=== PATIENT | male | born 1955 | race Caucasian/White ===

== ENCOUNTER 2021-12-14 10:23 | Inpatient (IN) | payer MEDICARE, OTHER, SELFPAY ==
[2021-12-14] VITALS (32 sets, daily range): BP systolic 103–195; BP diastolic 72–122; PULSE 91–135; RESP 12–26; TEMP 36.6–36.7; O2SAT 97–100
--- NOTE | ~2021-12-14 | XR_ITS ---
EXAMINATION: XR thoracic spine 3V EXAM DATE: 12/14/2021 12:38 INDICATION: thoracic back pain after fall 1 week ago. TECHNIQUE: Frontal and lateral projections of the thoracic spine as well as lateral swimmers projecti on of the upper thoracic spine for interpretation. There is no prior study for comparison. FINDINGS: The vertebral bodies are aligned in the AP dimension. There is mild mid thoracic disc disea se. The vertebral body and disc heights are otherwise well maintained. There are no acute fractures i dentified. Paraspinal soft tissue is unremarkable. IMPRESSION: Mild thoracic spondylosis. Reviewed, dictated and finalized at location A. ATCHER SERVICE CHIEF IMPRESSION: Mild thoracic spondylosis.
--- NOTE | ~2021-12-14 | XR_ITS ---
XR lumbar spine 2-3V 12/14/2021 12:38 Indication: Back pain after recent fall Procedure: 3 views lumbar spine Comparison: No prior studies for comparison. Findings: Vertebral body heights are maintained. Mild disc narrowing at L4-5 and L5-S1. No acute frac ture or traumatic malalignment. Pedicles intact. Sacral foramen are symmetric. Impression: 1: No acute abnormality of the lumbar spine. 2: Mild lumbar spondylosis. Reviewed, dictated and finalized at location B. STANT STORE DIRECTOR Impression: 1: No acute abnormality of the lumbar spine. 2: Mild lumbar spondylosis.
--- NOTE | ~2021-12-14 | XR_ITS ---
EXAMINATION: XR chest 1V portable 12/14/2021 12:26 INDICATION: Weakness. Dyspnea. PROCEDURE: AP portable chest COMPARISON: No prior studies for comparison. FINDINGS: The lungs are clear. The cardiomediastinal silhouette is within normal limits. There are no pleural effusions. There is no pneumothorax suspected. IMPRESSION: 1: NO ACUTE CARDIOPULMONARY DISEASE. Reviewed, dictated and finalized at location B. OL CAFETERIA COOK HEAD
--- NOTE | ~2021-12-14 | CT_ITS ---
EXAMINATION: CT brain wo con DATE: 12/14/2021 17:51 INDICATION: Multiple falls due to weakness and lightheadedness. Head injury. TECHNIQUE: Computed tomography (CT) of the head was performed without intravenous contrast. The mA wa s adjusted according to patient size. Iterative reconstruction technique was employed. Exam dose: 60 5.33 mGy-cm total exam DLP. COMPARISON: None FINDINGS: There is central and cortical cerebral and cerebellar atrophy. There is nonspecific diminished attenuation cerebral white matter, likely due to chronic small vessel ischemic changes. Prominent bilateral carotid siphon and supraclinoid internal carotid artery calcif ications. Chronic left basal ganglia and periventricular lacunar infarcts. No intracranial mass lesion or hemorrhage or recent cerebrovascular accident is evident. There is no midline shift or mass effect. No subdural or epidural hematoma. No fracture or bone destruction of the cranial vault. The mastoid air cells and included paranasal si nuses are normally developed and aerated. IMPRESSION: Cerebral atherosclerosis and chronic small vessel ischemic changes of cerebral white mat ter Chronic lacunar infarcts of left basal ganglia and periventricular area No acute intracranial finding or skull fracture Reviewed, dictated and finalized at Location A. Reviewed, dictated and finalized at location A. L PADDER BLINDSTITCH IMPRESSION: Cerebral atherosclerosis and chronic small vessel ischemic changes of cerebral white matter Chronic lacunar infarcts of left basal ganglia and periventricular area No acute intracranial finding or skull fracture
--- NOTE | ~2021-12-14 | US_ITS ---
US renal BI 12/15/2021 10:26 Procedure: Realtime transabdominal ultrasound of the kidneys and bladder. Indication: Acute renal insufficiency Comparison: No prior studies for comparison. Findings: Renal echotexture is normal bilaterally without hydronephrosis, contour deforming mass or r enal calculus. The right kidney measures 10.6 cm and left kidney measures 9.6 cm. Bladder within nor mal limits. Bilateral ureteral jets are demonstrated. Impression: 1: Unremarkable renal ultrasound. No stones, masses or hydronephrosis. Reviewed, dictated and finalized at location B. OWS APPLICATION PACKAGER Impression: 1: Unremarkable renal ultrasound. No stones, masses or hydronephrosis.
--- NOTE | 2021-12-14 11:59 | ECG_ITS ---
Measurements Intervals [place] Rate: 94 P: 34 [place]: 181 QRS: -67 QRSD: 110 T: 120 QT: 379 QTc: 476 Interpretive Statements SINUS RHYTHM ATRIAL PREMATURE COMPLEX LEFT ANTERIOR FASCICULAR BLOCK LEFT VENTRICULAR HYPERTROPHY AND ST-T CHANGE ST-T WAVE ABNORMALITY IN HIGH LATERAL LEADS- CONSIDER ISCHEMIA BASELINE ARTIFACT- I, AVL ABNORMAL ECG Electronically Signed On 12-14-2021 12:50:18 DOSIER OPERATOR by Gokul Ruff D.O.
--- NOTE | 2021-12-14 12:17 | ED.GENADULT ---
HPI - General Adult General Chief complaint: Weakness Stated complaint: syncope Time Seen by Provider: 12/14/21 11:54 Source: patient and RN notes reviewed Mode of arrival: ambulatory Limitations: no limitations History of Present Illness HPI narrative: 66-year-old male with history of alcohol abuse presents to the emergency department complaining of increased generalized weakness and lower back pain after a ground-level fall 1 week ago. Patient states since October he has had decreased p.o. intake and has been drinking heavily. In October his fianc?e . Patient states he goes through approximately 1/5 of [employer] every 3 days. patient states 1 week ago he had a fall injuring his back. Patient states he has been taking ibuprofen for pain control. Patient did go to his daughter's wedding on Tuesday and states he was able to dance a little. Patient states over the last few days he has had increased cough. Upon arrival to emergency department patient is alert oriented and appears to be in no distress. Related Data Allergies Allergy/AdvReac Type Severity Reaction Status Date / Time No Known Allergies Allergy Mild Verified 12/24/10 20:41 Review of Systems Review of Systems: CONSTITUTIONAL: Denies fever, chills, or sweats. Does report increased generalized weakness EYES: Denies visual changes, redness, or discharge. ENT: Denies rhinorrhea, congestion, sore throat, or otalgia. CARDIOVASCULAR: Denies chest pain, palpitations, or edema. RESPIRATORY: Denies cough or dyspnea. GASTROINTESTINAL: Denies abdominal pain, nausea, vomiting, or diarrhea. GENITOURINARY: Denies dysuria or hematuria. SKIN: Denies rash or itching. MUSCULOSKELETAL: Thoracic and lumbar back pain NEUROLOGIC: Denies headache, numbness, or weakness. Exam Narrative: APPEARANCE: Well appearing, no pain, no distress, well-nourished. HEAD: normocephalic, atraumatic. EYES: PERRLA/EOMI, conjunctivae clear. NOSE: Normal no drainage RESPIRATORY: Airway patent, respirations nonlabored. Clear to auscultation bilaterally, no rales, rhonchi, wheezing. CARDIOVASCULAR: Regular rate and rhythm without murmurs rubs or gallops. ABDOMINAL: Soft, nontender, nondistended, normal bowel sounds MUSCULOSKELETAL: Moves all extremities. Strength/ROM intact, No edema, No calf tenderness. NEURO: Alert. Cranial nerves II through XII intact. Good gait. Good coordination SKIN: Warm, dry. Normal Color PSYCHIATRIC: Normal affect/mood. Denies homicidal or suicidal ideation Course Course Emergency Course: X-rays of thoracic and lumbar spine are read as negative. No acute fractures or dislocations. Patient's labs are within normal limits. Patient did have some mild hyponatremia that was treated with 1 L normal saline. Patient was updated with his imaging and his labs. Patient was able to ambulate in the emergency department without issue. To discharge patient states he felt increasingly weaker. Head CT showed no acute intracranial abnormality. Patients blood glucose was stable. I discussed the findings with the patient and the patient's daughter. I feel the majority of the patient's symptoms are due to deconditioning from his poor diet and increased alcohol consumption. I discussed the case with the hospitalist and patient was accepted for observation. Patient was stable at time of admission. Vital Signs Vital signs: Vital Signs Temperature 97.8 F 12/14/21 10:28 Pulse Rate 104 H 12/14/21 10:28 Respiratory Rate 16 12/14/21 10:28 Blood Pressure 103/72 12/14/21 10:28 Pulse Oximetry 98 12/14/21 10:28 Temperature 98.1 F 12/14/21 11:56 Pulse Rate 106 H 12/14/21 18:01 Respiratory Rate 18 12/14/21 18:01 Blood Pressure 179/91 H 12/14/21 18:46 Pulse Oximetry 99 12/14/21 18:38 Medical Decision Making Vital Signs Vital Signs: Vital Signs Temperature 97.8 F 12/14/21 10:28 Pulse Rate 104 H 12/14/21 10:28 Respiratory Rate 16 12/14/21 10:28 B
[2021-12-14 12:28] LABS: Basophils Percent Auto 0.3 % (0.2-1.2); Eosinophils Percent Auto 0.1 % (0-4.4); Hematocrit 37.7 % (42.0-52.0); Hemoglobin 13.4 g/dL (14.0-18.0); Immature Granulocyte Absolute 0.07 K/mm3 (0.00-0.031); Immature Granulocyte Percent A 0.8 % (0-0.5); Lymphocytes Absolute Auto 0.61 K/mm3 (0.9-3.2); Lymphocytes Percent Auto 6.7 % (18.3-44.2); Mean Corpuscular HGB Conc 35.5 g/dl (32-36); Mean Corpuscular Hemoglobin 33.4 pg (26-34); Mean Platelet Volume 9.2 fl (7.4-10.4); Monocytes Absolute Auto 0.9 K/mm3 (0.1-0.6); Monocytes Percent Auto 9.4 % (2.6-8.5); Neutrophils Absolute Auto 7.5 K/mm3 (1.3-6.7); Neutrophils Percent Auto 82.7 % (45.5-73.1); Platelet Count Result 227 k/mm3 (150-375); Red Blood Count 4.01 M/mm3 (4.6-6.20); Red Cell Distribution Width 13.1 % (11.5-14.5); White Blood Count 9.1 K/mm3 (4.5-10.0)
[2021-12-14 12:35] LABS: Alanine Aminotransferase 35 U/L (4-50); Albumin Level 4.3 g/dL (3.5-5.1); Alkaline Phosphatase 96 U/L (38-126); Anion Gap 15 mmol/L (8-16); Aspartate Amino Transferase 62 U/L (17-59); Bilirubin,Total 1.1 mg/dL (0.2-1.3); Blood Urea Nitrogen 45 mg/dL (9-20); Calcium 9.5 mg/dL (8.4-10.2); Carbon Dioxide 18 mmol/L (22-30); Chloride 96 mmol/L (98-107); Estimated CRCL calculation 39 ml/min; Estimated Glomerular Filt Rate 40; Glucose 148 mg/dL (65-110); Lactic Acid Reflex 1.9 mmol/L (0.7-2.1); Potassium 3.7 mmol/L (3.4-5.0); Sodium 129 mmol/L (137-145)
[2021-12-14] MEDS: SODIUM CHLORIDE 0.9% IV 1,000 ML 999 ML IV CONT (12:49)
[2021-12-14 14:01] LABS: Add Urine Microscopic? YES; Appearance Urine Clear (Clear); Bilirubin Urine Negative (Negative); Blood Urine 2+ (Negative); Color Urine Yellow (Yellow); Glucose Urine UA 1+ mg/dL (Negative); Ketones Urine Trace mg/dL (Negative); Leukocyte Esterase Ur Negative LEU/UL (Negative); Mucus Urine Rare /lpf; Nitrate Urine Negative (Negative); Protein Urine 1+ mg/dL (Negative); RBC Urine 0-2 /hpf (0-2); Specific Grav Ur 1.016 (1.001-1.035); Squamous Epithelial Cell Urine Occasional /hpf (Few); WBC Urine 0-3 /hpf
--- NOTE | 2021-12-14 16:14 | PC.NURSE ---
patient family called wondering why he want getting admired because he is depressed. Daughter stated that he does not eat and drink at home and sits in his own feces all day if they do not check on him.
--- NOTE | 2021-12-14 16:20 | PC.NURSE ---
Patient was found on knees in ED room 3. Patient states he lowered self to floor after trying to urinate. Patient is alert and oriented and states I got cocky and wanted out of bed to urinate. Patient had call light and urinal within reach and was educated allocation analyst light use and was told not to ambulate without assistance prior to fall. Patient denies any injury and lowered himself to floor. EDP Terrance in room and evaluated patient. No new orders per EDP Terrance. ED charge nurse Deepak and mix house operator Suni was made aware and patient was assisted back into bed without difficulty.
[2021-12-14 17:42] LABS: Glucose Point of Care 107 mg/dl (65-105)
--- NOTE | 2021-12-14 17:44 | PC.NURSE ---
Per EDP Terrance patient needed to be ambulated post fall. Patient unable to ambulate because of weakness and patient almost fell down again. Patient placed back into bed.
--- NOTE | 2021-12-14 17:58 | PC.NURSE ---
Patient urinated during CT scan then again when he got back. He stated it makes him feel warm. Then he stated he cannot control himself because he is to weak.
[2021-12-14 18:40] LABS: SARS-CoV-2 RNA PCR Negative
--- NOTE | 2021-12-14 19:13 | PC.NURSE ---
patient refused to get cleaned up after urinating in his pants.
[2021-12-14] MEDS: THIAMINE HCL 200 MG/2 ML VIAL 100 MG IV PUSH (19:32)
--- NOTE | 2021-12-14 19:37 | PM.IMHP ---
H&P: HPI History of Present Illness Date/Time: 12/14/21 19:37 Chief Complaint: WEAKNESS Narrative: This is a 66-year-old male with past medical history significant for type 2 diabetes mellitus controlled with oral agents, hypertension. Patient presented to emergency room with complaints of back pain recurrent falls increased alcohol intake for the last month or so debilitation ,weakness, alcohol intoxication and depression after his fiancee in October, has had a period of bereavement and has become increasingly weak has been drinking alcohol. Patient had a fall and noticed that he has become progressively weaker and has back pain after falling to the ground however denies any loss of consciousness, no gait disturbance, no urinary incontinence or fecal incontinence, no saddle anesthesia, no shooting back pain, in emergency room patient was noted to be very weak and just getting up and out of bed was extremely difficult. Preliminary workup was essentially nonrevealing. Patient is been admitted for further evaluation, management and treatment Review of Systems Review of Systems: Better mend, alcohol intoxication, recurrent falls, worsening weakness , poor oral intake Constitutional: Constitutional: Denies chills, Denies fever(s), Reports frequent falls, Reports lethargy, Denies night sweats, Reports poor appetite, Reports weakness and Reports weight loss Eyes: Eyes: Denies change in vision ENT: Denies dysphagia, Denies vertigo, Denies dizziness, Denies nasal discharge, Denies nasal obstruction and Denies odynophagia Cardiovascular: Cardiovascular: Denies syncope, Denies claudication, Denies radiating jaw, neck or arm pain, Denies palpitations, Denies dyspnea on exertion and Denies orthopnea Respiratory: Respiratory: Denies cough, Denies excessive phlegm production, Denies dyspnea and Denies wheezing Gastrointestinal: Gastrointestinal: Denies abdominal pain, Denies dyspepsia, Denies heartburn, Denies diarrhea, Denies nausea and Denies vomiting Genitourinary: Genitourinary: Denies dysuria Musculoskeletal: Musculoskeletal: Reports muscle weakness Integumentary/Breasts: Skin/Breast: Denies rash Neurologic: Denies focal weakness and Denies Sensory deficit (Neuro) Psychiatric: Psychiatric: Reports anhedonia Comments: Bearevement Endocrine: Endocrine: Denies cold intolerance, Denies fatigue, Denies flushing, Denies heat intolerance, Denies polyphagia, Denies polydipsia, Denies polyuria and Denies palpitations Hematologic/Lymphatic: Hematologic/Lymphatic: Reports no additional hematologic/lymphatic complaints and Reports as per HPI Allergic/Immunologic: Allergic/Immunologic: Reports no additional allergic/immunologic complaints and Reports as per HPI [facility] Social History Social History Smoking packs per day: 1 Smoking cigarettes per day: 20.0 Years smoked: 49 Smoking pack-years: 49.00 Smoking status: Current every day smoker Tobacco type: cigarettes Second hand tobacco smoke exposure: Yes Alcohol intake: current Drinks per week: 20 Substance use: never Substance use type: does not use Spiritual care concerns: No Meds Home Medications and Allergies Home Medications Medication Instructions Recorded Confirmed Type ibuprofen 200 mg PO Q6H PRN 12/15/21 12/15/21 History irbesartan 150 mg PO DAILY 12/15/21 12/15/21 History metformin 500 mg PO BID 12/15/21 12/15/21 History Allergies Allergy/AdvReac Type Severity Reaction Status Date / Time No Known Allergies Allergy Mild Verified 12/15/21 02:43 Vital Signs Vital Signs - 24 hr 12/14/21 10:28 12/14/21 11:56 12/14/21 12:13 Temperature 97.8 F 98.1 F Pulse Rate 104 H 96 103 H Respiratory Rate 16 19 12 Blood Pressure 103/72 142/96 H Pulse Oximetry 98 100 12/14/21 12:15 12/14/21 12:43 12/14/21 12:45 Temperature Pulse Rate 96 96 91 Respiratory Rate 19 20 21 H Blood Pressure Pulse Oximetry 98 98 12/14/21 13:00 0
[2021-12-15] VITALS (7 sets, daily range): BP systolic 136–162; BP diastolic 73–96; PULSE 73–102; RESP 14–16; TEMP 36.4–36.6; O2SAT 98–100; BMI 23.1
--- NOTE | 2021-12-15 01:50 | ADMGEN ---
This patient, Yvan Chau, was admitted to Medical Room 243-01. Patient/family oriented to hospital policies and general routines including ID bracelet, bed and alarms, visiting hours, pain management, procedures, bathroom and other care routines, personal items, smoking policy, room service/diet, and visiting hours. Information on how to activate the Rapid Response Team has been discussed. Patient/Family are encouraged to report perceived risks to care and to ask questions if they do not understand what they are told or what they should do.
[2021-12-15] MEDS: THIAMINE HCL INJ 100 MG, FOLIC ACID INJ 1 MG, MULTIVITAMINS-12 INJ VIAL 1 5 ML, MULTIVI... IV CONT (04:03)
--- NOTE | 2021-12-15 11:15 | PM.IMPN ---
Progress Note: A&P Assessment and Plan (1) Recurrent falls while walking: Code(s): R29.6 - Repeated falls Status: Acute Assessment and Plan: PT/ OT (2) Alcohol intake above recommended sensible limits: Code(s): Z72.89 - Other problems related to lifestyle Status: Acute Assessment and Plan: Pt is on thiamine and oral MV on regular food (3) Bereavement due to life event: Code(s): Z63.4 - Disappearance and of family member Status: Acute Assessment and Plan: Recent loss of his depressed effect (4) Back pain: Qualifiers: Back pain laterality: midline Back pain location: low back pain Chronicity: acute Sciatica presence: without sciatica Qualified Code(s): M54.50 - Low back pain, unspecified Code(s): M54.9 - Dorsalgia, unspecified Status: Acute Assessment and Plan: continue pT/ OT DC fidel (5) General weakness: Code(s): R53.1 - Weakness Status: Acute Assessment and Plan: continue PT/ OT DC fidel (6) Physical deconditioning: Code(s): R53.81 - Other malaise Status: Acute Assessment and Plan: Continue PT/ OT DC fidel (7) LEANDRO (acute kidney injury): Code(s): N17.9 - Acute kidney failure, unspecified Status: Acute Assessment and Plan: creat is 1.7 sodium levels are 129 continue hydration monitor bmp Subjective Date/time seen: 12/15/21 11:15 Interval history: 66-year-old male with past medical history significant for type 2 diabetes mellitus controlled with oral agents, hypertension. Patient had recent bereavement and was drinking heavily. Pt feeling better started PT/ OT. still bit shakey in his legs, plan to go home to his daughters house Review of Systems Review of Systems: All systems reviewed & are unremarkable except as noted in HPI and below Exam Const: General: other (shakey tearful ); No in distress Orientation/consciousness: oriented to person HENMT: Head: normal to inspection Resp: Effort & Inspection: no respiratory distress Auscultation: no rhonchi and no wheezes Cardio: Rate: regular rate Rhythm: regular rhythm GI: Inspection: normal to inspection GI Palp: No abdominal tenderness, No Guarding due to palpation present (GI) and No Hepatomegaly present Auscultation: normal bowel sounds Neuro: General: oriented to person Objective Data Vital Signs Vital Signs: Vital Signs - 24 hr 12/14/21 11:56 12/14/21 12:13 12/14/21 12:15 Temperature 36.7 C Pulse Rate 96 103 H 96 Respiratory Rate 19 12 19 Blood Pressure 142/96 H Pulse Oximetry 100 12/14/21 12:43 12/14/21 12:45 12/14/21 13:00 Temperature Pulse Rate 96 91 95 Respiratory Rate 20 21 H 20 Blood Pressure Pulse Oximetry 98 98 99 12/14/21 13:20 12/14/21 13:30 12/14/21 13:46 Temperature Pulse Rate 92 97 93 Respiratory Rate 24 H 14 20 Blood Pressure Pulse Oximetry 99 100 100 12/14/21 14:00 12/14/21 14:15 12/14/21 14:17 Temperature Pulse Rate 99 108 H 96 Respiratory Rate 21 H 20 22 H Blood Pressure 145/108 H Pulse Oximetry 100 99 99 12/14/21 14:33 12/14/21 14:49 12/14/21 15:08 Temperature Pulse Rate 104 H 102 H 100 Respiratory Rate 13 26 H 22 H Blood Pressure Pulse Oximetry 99 97 100 12/14/21 15:22 12/14/21 15:30 12/14/21 15:48 Temperature Pulse Rate 103 H Respiratory Rate 21 H Blood Pressure Pulse Oximetry 97 100 99 12/14/21 16:12 12/14/21 16:30 12/14/21 16:45 Temperature Pulse Rate 135 H 108 H 106 H Respiratory Rate 25 H 20 17 Blood Pressure 195/122 H Pulse Oximetry 99 12/14/21 16:47 12/14/21 17:05 12/14/21 17:15 Temperature Pulse Rate 102 H 104 H Respiratory Rate 16 Blood Pressure Pulse Oximetry 99 98 100 12/14/21 17:55 12/14/21 17:56 12/14/21 18:00 Temperature Pulse Rate 100 101 H 102 H Respiratory Rate 17 18 18 Blood Pressure 173/110 H Pulse Oximetry 99 1
[2021-12-16 05:04] VITALS: BP 144/74; PULSE 82; RESP 14; TEMP 36.7; O2SAT 99
[2021-12-16 08:51] LABS: Anion Gap 12 mmol/L (8-16); Blood Urea Nitrogen 43 mg/dL (9-20); Calcium 8.8 mg/dL (8.4-10.2); Carbon Dioxide 24 mmol/L (22-30); Chloride 94 mmol/L (98-107); Estimated CRCL calculation 49 ml/min; Estimated Glomerular Filt Rate 55; Glucose 129 mg/dL (65-110); Potassium 3.1 mmol/L (3.4-5.0); Sodium 130 mmol/L (137-145)
[2021-12-16] MEDS: MULTIVITAMINS THERAPEUTIC TAB (*BKC) 1 TABLET PO (09:04)
[2021-12-16] MEDS: POTASSIUM CHLORIDE 20 MEQ TABLET 40 MEQ PO (09:05)
[2021-12-16] MEDS: SODIUM CHLORIDE 0.9% IV 1,000 ML 999 ML IV CONT (09:05)
--- NOTE | 2021-12-16 12:46 | WPDCDIQUERY2 ---
CDI Query Clarification Request - Pt has increased alcohol intake -weakness- likely secondary to poor po intake increased alcohol intake -falls likely secondary to alcohol intoxication has been documented Please clarify if there is a corresponding diagnosis for above findings.
[2021-12-16 12:59] LABS: Influenza Control Positive
[2021-12-16 13:50] LABS: Anion Gap 9 mmol/L (8-16); Blood Urea Nitrogen 43 mg/dL (9-20); Calcium 7.9 mg/dL (8.4-10.2); Carbon Dioxide 23 mmol/L (22-30); Chloride 97 mmol/L (98-107); Estimated CRCL calculation 53 ml/min; Estimated Glomerular Filt Rate 60; Glucose 125 mg/dL (65-110); Potassium 3.6 mmol/L (3.4-5.0); Sodium 129 mmol/L (137-145)
[2021-12-16 14:00] VITALS: BP 149/96; PULSE 92; RESP 16; TEMP 36.7; O2SAT 100
--- NOTE | 2021-12-16 15:58 | PM.IMPN ---
Progress Note: A&P Assessment and Plan (1) Recurrent falls while walking: Code(s): R29.6 - Repeated falls Status: Acute Assessment and Plan: PT/ OT (2) Alcohol intake above recommended sensible limits: Code(s): Z72.89 - Other problems related to lifestyle Status: Acute Assessment and Plan: Pt is on thiamine and oral MV on regular food (3) Bereavement due to life event: Code(s): Z63.4 - Disappearance and of family member Status: Acute Assessment and Plan: Recent loss of his depressed effect (4) Back pain: Qualifiers: Back pain laterality: midline Back pain location: low back pain Chronicity: acute Sciatica presence: without sciatica Qualified Code(s): M54.50 - Low back pain, unspecified Code(s): M54.9 - Dorsalgia, unspecified Status: Acute Assessment and Plan: continue pT/ OT (5) General weakness: Code(s): R53.1 - Weakness Status: Acute Assessment and Plan: continue PT/ OT (6) Physical deconditioning: Code(s): R53.81 - Other malaise Status: Acute Assessment and Plan: Continue PT/ OT (7) LEANDRO (acute kidney injury): Code(s): N17.9 - Acute kidney failure, unspecified Status: Acute Assessment and Plan: creat is 1.7 sodium levels are 129 continue hydration monitor bmp (8) Cough: Code(s): R05.9 - Cough, unspecified Status: Acute Assessment and Plan: -pt reports increased cough x 2 days -initial covid test negative but now symptomatic, will re test -daughter and son in law who we was just with and was supposed to go home to live with, both tested positive for covid today -pending covid test patient can possibly go home with a different family member vs SNF Subjective Date/time seen: 12/16/21 15:58 Interval history: 66-year-old male with past medical history significant for type 2 diabetes mellitus controlled with oral agents, hypertension. Patient had recent bereavement and was drinking heavily. Pt feeling better started PT/ OT. Pt was supposed to go home with his daughter today but found out that she and her tested positive for covid. Pt also notes that his cough has increased over the past 2 days and he was just with his daughter and son in law. Pt was negative on arrival but symptoms have developed since that time and he is requesting to be re tested. Review of Systems Review of Systems: General: Denies fevers Eyes: Denies vision changes ENT: Denies nasal congestion or sore throat Respiratory: + cough, denies shortness of breath Cardiovascular: Denies chest pain or lower extremity edema Gastrointestinal: Denies abdominal pain, vomiting, or diarrhea Genitourinary: Denies dysuria Musculoskeletal: Denies back pain Neurological: Denies headache or motor weakness Integumentary: Denies rash Exam Narrative: General: No acute distress, non toxic appearing Eyes: PERRL, no scleral icterus HEENT: NCAT, external ears normal, MMM Respiratory: No respiratory distress, Lungs CTA bilaterally, no wheezing Cardiovascular: RRR, no murmur Abdominal: Soft, nontender, non distended, no rebound or guarding Musculoskeletal: Moves all 4 extremities, no edema Neurological: A/Ox3, speech normal, no facial asymmetry Skin: Warm, dry Psychiatric: Normal affect, depressed mood Objective Data Vital Signs Vital Signs: Vital Signs - 24 hr 12/15/21 19:56 12/15/21 20:00 12/16/21 05:04 Temperature 97.6 F 98.1 F Pulse Rate 91 91 82 Respiratory Rate 16 16 14 Blood Pressure 147/85 H 144/74 H Pulse Oximetry 100 100 99 12/16/21 14:00 Temperature 98.0 F Pulse Rate 92 Respiratory Rate 16 Blood Pressure 149/96 H Pulse Oximetry 100 Intake/Output Intake/Output: Intake & Output 12/13/21 12/14/21 12/15/21 12/16/21 23:59 23:59 23:59 23:59 Intake Total 1000 1230 2020 Output Total 100 Balance 1000 1130
[2021-12-16 19:37] LABS: SARS-CoV-2 RNA PCR Negative
[2021-12-16 20:00] VITALS: PULSE 77; RESP 16; O2SAT 99
[2021-12-16 20:08] VITALS: BP 161/90; PULSE 77; RESP 16; TEMP 36.4; O2SAT 99
[2021-12-17 06:00] VITALS: BP 159/86; PULSE 74; RESP 16; TEMP 36.4; O2SAT 100
[2021-12-17 06:51] LABS: Hemoglobin 11.4 g/dL (14.0-18.0); Mean Corpuscular HGB Conc 35.6 g/dl (32-36); Mean Corpuscular Hemoglobin 33.4 pg (26-34); Mean Corpuscular Volume 93.8 fl (80-100); Mean Platelet Volume 9.2 fl (7.4-10.4); Platelet Count Result 276 k/mm3 (150-375); Red Blood Count 3.41 M/mm3 (4.6-6.20); Red Cell Distribution Width 13.1 % (11.5-14.5); White Blood Count 9.3 K/mm3 (4.5-10.0)
[2021-12-17 07:10] LABS: Anion Gap 9 mmol/L (8-16); Blood Urea Nitrogen 27 mg/dL (9-20); Calcium 8.3 mg/dL (8.4-10.2); Carbon Dioxide 25 mmol/L (22-30); Chloride 97 mmol/L (98-107); Estimated CRCL calculation 63 ml/min; Estimated Glomerular Filt Rate > 60; Glucose 143 mg/dL (65-110); Potassium 3.3 mmol/L (3.4-5.0); Sodium 131 mmol/L (137-145)
[2021-12-17] MEDS: MULTIVITAMINS THERAPEUTIC TAB (*BKC) 1 TABLET PO (09:04)
--- NOTE | 2021-12-17 13:23 | PM.IMPN ---
Progress Note: A&P Assessment and Plan (1) Recurrent falls while walking: Code(s): R29.6 - Repeated falls Status: Acute Assessment and Plan: PT/ OT (2) Alcohol intake above recommended sensible limits: Code(s): Z72.89 - Other problems related to lifestyle Status: Acute Assessment and Plan: Pt is on oral MV and regular food (3) Bereavement due to life event: Code(s): Z63.4 - Disappearance and of family member Status: Acute Assessment and Plan: Recent loss of his depressed effect (4) Back pain: Qualifiers: Back pain laterality: midline Back pain location: low back pain Chronicity: acute Sciatica presence: without sciatica Qualified Code(s): M54.50 - Low back pain, unspecified Code(s): M54.9 - Dorsalgia, unspecified Status: Acute Assessment and Plan: continue pT/ OT DC to SNF (5) General weakness: Code(s): R53.1 - Weakness Status: Acute Assessment and Plan: continue PT/ OT DC to SNF (6) Physical deconditioning: Code(s): R53.81 - Other malaise Status: Acute Assessment and Plan: Continue PT/ OT to SNF (7) LEANDRO (acute kidney injury): Code(s): N17.9 - Acute kidney failure, unspecified Status: Acute Assessment and Plan: creat is 1 sodium levels are 131 LEANDRO corrected with fluids Subjective Date/time seen: 12/17/21 13:23 Interval history: 66-year-old male with past medical history significant for type 2 diabetes mellitus controlled with oral agents, hypertension. Patient had recent bereavement and was drinking heavily. Pt looks alot better. Pt cannot go back to his daughter house due to family having covid. Pt is negative for covid and is awaiting discharge to SNF placement. Review of Systems Review of Systems: All systems reviewed & are unremarkable except as noted in HPI and below Exam Const: General: cooperative, healthy appearing, well developed, alert and in distress Orientation/consciousness: oriented to person HENMT: Head: normal to inspection Resp: Effort & Inspection: no respiratory distress Auscultation: no rhonchi and no wheezes Cardio: Rate: regular rate Rhythm: regular rhythm GI: Inspection: normal to inspection Auscultation: normal bowel sounds Neuro: General: oriented to person Objective Data Vital Signs Vital Signs: Vital Signs - 24 hr 12/16/21 14:00 12/16/21 20:00 12/16/21 20:08 Temperature 36.7 C 36.4 C Pulse Rate 92 77 77 Respiratory Rate 16 16 16 Blood Pressure 149/96 H 161/90 H Pulse Oximetry 100 99 99 12/17/21 06:00 Temperature 36.4 C Pulse Rate 74 Respiratory Rate 16 Blood Pressure 159/86 H Pulse Oximetry 100 Intake/Output Intake/Output: Intake & Output 12/14/21 12/15/21 12/16/21 12/17/21 23:59 23:59 23:59 23:59 Intake Total 1000 1230 2540 1000 Output Total 100 Balance 1000 1130 2540 1000 Meds/Results Medications: Active Medications Generic Name Dose Route Start Last Admin Trade Name Freq PRN Reason Stop Dose Admin Multivitamins Therapeutic 1 tablet 12/16/21 09:00 12/17/21 09:04 Multivitamins Therapeutic Tab (*Bkc) PO 1 tablet QAM BASSEM Administration Radiology Results: ITS Impressions Chest X-Ray 12/14/21 12:34 IMPRESSION: 1: NO ACUTE CARDIOPULMONARY DISEASE. Lumbar Spine X-Ray 12/14/21 12:42 Impression: 1: No acute abnormality of the lumbar spine. 2: Mild lumbar spondylosis. Thoracic Spine X-Ray 12/14/21 12:55 IMPRESSION: Mild thoracic spondylosis. Head CT 12/14/21 18:20 IMPRESSION: Cerebral atherosclerosis and chronic small vessel ischemic changes of cerebral white matter Chronic lacunar infarcts of left basal ganglia and periventricular area No acute intracranial finding or skull fracture Renal Ultrasound 12/15/21 10:30 Impression: 1: Unremarkable renal ultrasound. No stones, masses or hydronephr
[2021-12-17 14:00] VITALS: BP 159/87; PULSE 76; RESP 14; TEMP 36.6; O2SAT 100
--- NOTE | 2021-12-17 15:18 | PC.NURSE ---
On 12/17/21, the student, [Florencio Levine], provided care and completed [facility] documentation on this patient. I have reviewed the student's documentation and agree with the findings.
[2021-12-17 20:00] VITALS: PULSE 80; RESP 16; O2SAT 100
[2021-12-17 20:50] VITALS: BP 158/93; PULSE 80; RESP 16; TEMP 36.7; O2SAT 100
[2021-12-18 05:26] VITALS: BP 163/100; PULSE 81; RESP 14; TEMP 36.4; O2SAT 100
[2021-12-18] MEDS: MULTIVITAMINS THERAPEUTIC TAB (*BKC) 1 TABLET PO (08:56)
--- NOTE | 2021-12-18 10:53 | PCPTNOTE ---
Patient declined to do therapy at this time due to wanting to save his energy for returning home. Patient had just spoken with the MD who states he will be discharged today.
--- NOTE | 2021-12-18 13:05 | PM.DS ---
DS: Admitting Diagnosis Discharge Date 12/18/2021 Admitting Diagnosis WEAKNESS DS: Discharge Diagnosis Discharge Diagnosis (1) Recurrent falls while walking: Code(s): R29.6 - Repeated falls Status: Resolved Assessment and Plan: Pt did well with PT/OT in the hospital, can be discharged home. (2) Alcohol intake above recommended sensible limits: Code(s): Z72.89 - Other problems related to lifestyle Status: Resolved Assessment and Plan: Pt is on oral MV and regular food (3) Bereavement due to life event: Code(s): Z63.4 - Disappearance and of family member Status: Acute Assessment and Plan: Recent loss of his Depressed effect Advised to talk to friends and family when he gets home. Pt will be going home with Home health nurses, then will go to live with her daughter in a few days time. Cannot go earlier as his daughter is recovering from COVID. (4) Back pain: Qualifiers: Back pain laterality: midline Back pain location: low back pain Chronicity: acute Sciatica presence: without sciatica Qualified Code(s): M54.50 - Low back pain, unspecified Code(s): M54.9 - Dorsalgia, unspecified Status: Acute Assessment and Plan: Pt did well with PT/ OT in the hospita,l pt is stable for discharge home with Home health. (5) General weakness: Code(s): R53.1 - Weakness Status: Resolved Assessment and Plan: Pt did well with PT/ OT in the hospital, pt is stable for discharge home with Home health. (6) Physical deconditioning: Code(s): R53.81 - Other malaise Status: Resolved Assessment and Plan: Pt did well with PT/ OT in the hospital, pt is stable for discharge home with Home health. (7) LEANDRO (acute kidney injury): Code(s): N17.9 - Acute kidney failure, unspecified Status: Resolved Assessment and Plan: creat is 1 sodium levels are 131 LEANDRO corrected with fluids DS: Summary Hospital Course Hospital Course: 66-year-old male with past medical history significant for type 2 diabetes mellitus controlled with oral agents, hypertension. Patient had recent bereavement and was drinking heavily. Pt looks alot better. Pt cannot go back to his daughter house due to family having covid. Pt is negative for covid and will be going home with home health nurses for a few days and then will go to his daughter house. Time Spent with Patient Time attestation: Total time spent providing and/or coordinating discharge services:40 minutes on day of discharge Exam Const: General: cooperative, healthy appearing, well developed, alert and in distress Orientation/consciousness: oriented to person HENMT: Head: normal to inspection Resp: Effort & Inspection: no respiratory distress Auscultation: no rhonchi and no wheezes Cardio: Rate: regular rate Rhythm: regular rhythm GI: Inspection: normal to inspection Auscultation: normal bowel sounds Neuro: General: oriented to person Discharge Plan Discharge Attending physician on discharge: Suha Marroquin Discharging Clinician: Suha Marroquin Anticipated Discharge Date/Time: 12/18/21 13:04 Patient Disposition: Home Health Service Activity: as tolerated Diet: regular Discharge Instructions: Per Care Coordination Patient has been arranged to have [facility] for RN, PT, OT eval and treat [phone] RN please fax completed discharge instructions to [phone] Patient Instructions: Antibiotic Form, How to Stop Smoking (GEN) Stand Alone Forms: General Discharge Information Follow-up/Referrals: Ronnell Zhang MD [Primary Care Provider] - (in 3-4 weeks time ) Discharge Medications: New multivitamin with folic acid [Thera] 400 mcg Tablet 1 tablet PO QAM Qty: 60 RF: 0 Continued metformin 500 mg tablet 500 mg PO BID RF: 0 irbesartan 150 mg tablet 150 mg PO DAILY RF: 0
[2021-12-20 07:35] LABS: Red Blood Cell Folate 570 ng/mL RBC (>280)
== END 2021-12-18 14:26 | disposition home health service (06) | DRG 683 ==
LOC: ANHED 17:39 → ANH3MEDSUR 22:43 → ANH2MED 12-15 00:03
PROVIDERS: Family Medicine; Admitting Provider Internal Medicine; Emergency Provider Emergency Medicine; PCP Emergency Medicine; Visit Provider Physician Assistant
DX: N17.9 Acute kidney failure, unspecified (principal); F10.99 Alcohol use, unspecified with unspecified alcohol-induced disorder; E87.1 Hypo-osmolality and hyponatremia; R53.1 Weakness; R53.81 Other malaise; Z20.822 Contact with and (suspected) exposure to COVID-19; E11.9 Type 2 diabetes mellitus without complications; I10 Essential (primary) hypertension; F17.210 Nicotine dependence, cigarettes, uncomplicated; F32.A Depression, unspecified; M54.50 Low back pain, unspecified; R29.6 Repeated falls; Z72.89 Other problems related to lifestyle; Z63.4 Disappearance and death of family member; Z79.84 Long term (current) use of oral hypoglycemic drugs
CPT/HCPCS: 36415; 51701; 70450; 71045; 72072; 72100; 76775; 80048; 80053; 81001; 82747; 82948; 83605; 85025; 85027; 87804; 93005; 96361; 96365; 96366; 96374; 96375; 97116; 97161; 97165; 97530; 99285; A9270; C9803; G0378; J3411; J3475; J7030; J7120; U0003; U0005

== ENCOUNTER 2022-11-09 14:32 | Outpatient (CLI) | payer MEDICARE, OTHER, SELFPAY ==
--- NOTE | 2022-11-09 | ECHO_ITS ---
Patient Info Name: Yvan Chau Age: 67 years : 1955 Gender: Male Ht: 70 in Wt: 165 lbs BSA: 1.93 m2 HR: 104 bpm BP: 138 / 98 mmHg Technical Quality: Fair Exam Date: 11/09/2022 2:55 PM Exam Location: [facility] Patient Status: Outpatient Admit Date: 11/09/2022 Staff Ordering Physician: Ronnell Zhang MD Starch Dumper: Maykel Cortez RDCS Attending Provider: Ronnell Zhang MD Referring Physician: Vicente JARAMILLO; Exam Type: CA echo doppler color flow Study Info Indications R55 - Syncope and collapse Complete two-dimensional, color flow and Doppler transthoracic echocardiogram is performed. Summary 1. Complete two-dimensional, color flow and Doppler transthoracic echocardiogram is performed. 2. Left ventricular chamber dimension is normal. 3. Left ventricular systolic function is normal, estimated at 60-65%. 4. There is mildly increased left ventricular wall thickness. 5. The left ventricular diastolic function is indeterminate. 6. Tissue doppler E/e' is not measured. 7. Left atrial chamber dimension is mildly enlarged. 8. The mitral valve has moderately calcified annulus. Left Ventricle Tissue doppler E/e' is not measured. Left ventricular chamber dimension is normal. Left ventricular systolic function is normal, estimated at 60-65%. There is mildly increased left ventricular wall thickness. The left ventricular diastolic function is indeterminate. Right Ventricle Right ventricular chamber dimension is normal. Right ventricular systolic function is normal. Left Atria Left atrial chamber dimension is mildly enlarged. Right Atria Right atrial chamber dimension is normal. Aortic Valve The aortic valve is trileaflet. There is no aortic valve stenosis. There is no aortic valve regurgitation. Pulmonic Valve There is no pulmonic regurgitation. Mitral Valve The mitral valve has moderately calcified annulus. There is no mitral valve stenosis. There is no mitral valve regurgitation. Tricuspid Valve There is no tricuspid valve regurgitation. Pericardium/Pleural There is no pericardial effusion. Inferior Vena Cava Normal inferior vena cava with >50% collapse upon inspiration consistent with normal right atrial pressure, 5 mmHg. Aorta The aortic root size at the sinus of Valsalva is normal. Left Ventricular Outflow Tract Name Value Normal LVOT 2D LVOT Diameter 2.0 cm LVOT Doppler LVOT Peak Gradient 4 mmHg LVOT Mean Gradient 2 mmHg LVOT VTI 13 cm LVOT VTI/AV VTI Ratio 0.9 LVOT Stroke Volume 43 ml LVOT CO 4.5 l/min LVOT CI 2.3 l/min/m2 Mitral Valve Name Value Normal MV Doppler MV Peak Gradient
== END 2022-11-09 14:33 | disposition home or self-care (01) ==
LOC: ANHCARD 14:33
PROVIDERS: PCP Emergency Medicine; Visit Provider Emergency Medicine
DX: R55 Syncope and collapse (principal); I34.81 Nonrheumatic mitral (valve) annulus calcification
CPT/HCPCS: 93306

== ENCOUNTER 2023-11-16 09:49 | Emergency (ER) | payer MEDICARE, OTHER, SELFPAY ==
[2023-11-16 09:52] VITALS: BP 120/64; PULSE 45; RESP 16; TEMP 36.4; O2SAT 98
[2023-11-16 11:34] LABS: Appearance Urine Clear (Clear); Bacteria Urine None Seen /hpf; Bilirubin Urine Negative (Negative); Blood Urine 3+ (Negative); Color Urine Yellow (Yellow); Glucose Urine UA Negative (Negative); Ketones Urine Negative (Negative); Leukocyte Esterase Ur Trace LEU/UL (Negative); Nitrate Urine Negative (Negative); Non Pathogenic Casts 0-2; Protein Urine 1+ mg/dL (Negative); RBC Urine >100 /hpf (0-2); Specific Grav Ur 1.005 (1.001-1.035); Squamous Epithelial Cell Urine None seen /hpf (Few); Urobilinogen Urine 0.2 mg/dL (<2.0); WBC Urine 0-5 /hpf; pH Urine 7.5 (5.0-9.0)
[2023-11-16 11:38] LABS: Add Urine Microscopic? YES
[2023-11-16 12:01] VITALS: BP 132/86; PULSE 64; RESP 14; O2SAT 98
--- NOTE | 2023-11-16 12:02 | ED.MALEGU ---
HPI - Male Genitourinary General Chief complaint: Urogenital-Male Stated complaint: removed perdomo catheter last noc Time Seen by Provider: 11/16/23 10:26 History of Present Illness HPI Narrative: Patient is a 68-year-old male who presents to the ER to have his Perdomo replaced. He accidentally dislodged his Perdomo catheter while walking around last night to have a bowel movement. Has no pain. No additional concerns. Related Data Home Medications Medication Instructions Recorded Confirmed irbesartan 150 mg tablet 150 mg PO DAILY 12/15/21 12/15/21 metformin 500 mg tablet 500 mg PO BID 12/15/21 12/15/21 Allergies Allergy/AdvReac Type Severity Reaction Status Date / Time No Known Allergies Allergy Mild Verified 12/15/21 02:43 Review of Systems Gastrointestinal: Gastrointestinal: Reports no additional gastrointestinal complaints Genitourinary: Genitourinary: Denies penile discharge and Denies testicular pain Comments: perdomo dislodgment PMF Past Medical History Medical History (Updated 11/16/23 @ 12:12 by Joel Tiwari MD) Diabetes Hypertension Social History Social History Smoking packs per day: 1 Smoking cigarettes per day: 20.0 Years smoked: 49 Smoking pack-years: 49.00 Smoking status: Current every day smoker Tobacco type: cigarettes Second hand tobacco smoke exposure: Yes Alcohol intake: current Drinks per week: 20 Substance use: never Substance use type: does not use Spiritual care concerns: No Exam Narrative: GENERAL: Well-appearing, well-nourished, and in no acute distress. HEAD: Normocephalic, atraumatic. ENT: Mucous membranes moist. CHEST: Clear to auscultation. No respiratory distress. HEART: Regular rate and rhythm. Normal peripheral pulses. ABDOMEN: Soft, nontender, nondistended. NEURO: Alert and oriented x3. PSYCH: Normal mood and affect. Course Course Emergency Course: Perdomo replaced. Discharge. Vital Signs Vital signs: Vital Signs Temperature 97.5 F L 11/16/23 09:52 Pulse Rate 45 L 11/16/23 09:52 Respiratory Rate 16 11/16/23 09:52 Blood Pressure 120/64 11/16/23 09:52 Pulse Oximetry 98 11/16/23 09:52 Oxygen Delivery Room Air 11/16/23 09:52 Temperature 97.5 F L 11/16/23 09:52 Pulse Rate 45 L 11/16/23 09:52 Respiratory Rate 16 11/16/23 09:52 Blood Pressure 120/64 11/16/23 09:52 Pulse Oximetry 98 11/16/23 09:52 Oxygen Delivery Room Air 11/16/23 09:52 MDM - Male Genitourinary Lab Data Labs: Lab Results 11/16/23 Range/Units 11:22 Urine Color Yellow (Yellow) Urine Appearance Clear (Clear) Urine pH 7.5 (5.0-9.0) Ur Specific [place] 1.005 (1.001-1.035) Urine Protein 1+ H (Negative) mg/dL Urine Glucose (UA) Negative (Negative) mg/dL Urine Ketones Negative (Negative) mg/dL Ur Blood (Man) 3+ H (Negative) Urine Nitrate Negative (Negative) Urine Bilirubin Negative (Negative) Urine Urobilinogen 0.2 (<2.0) mg/dL Leukocyte Esterase Rfl Trace H (Negative) JOSE/UL Urine RBC >100 H (0-2) /hpf Urine WBC 0-5 /hpf Ur Squamous Epith Cells None seen (Few) /hpf Urine Bacteria None seen /hpf Urine Casts 0-2 Urine Characteristics Clear Discharge Plan Discharge Clinical Impression: Dislodged Perdomo catheter Patient Disposition: Home, Self-Care Condition: Stable Instructions: Perdomo Catheter Placement and Care (ED) Additional Instructions: Return the ER if you have fever over 100.4? F, you lose consciousness, or you have additional concerns. Prescriptions: No Action metformin 500 mg tablet 500 mg PO BID irbesartan 150 mg tablet 150 mg PO DAILY multivitamin with folic acid [Thera] 400 mcg Tablet 1 tablet PO QAM Qty: 60 0RF Follow-up/Referrals: Ronnell Zhang MD [Primary Care Provider] - 1 Week
--- NOTE | 2023-11-16 12:31 | PC.NURSE ---
called timur jung @[id number] and spoke to Nithya to give report and update on pt. all questions answered.
== END 2023-11-16 13:27 ==
PROVIDERS: Emergency Provider Emergency Medicine; PCP Emergency Medicine
DX: T83.028A Displacement of other urinary catheter, initial encounter (principal); Y84.6 Urinary catheterization as the cause of abnormal reaction of the patient, or of later complication, without mention of misadventure at the time of the procedure; I10 Essential (primary) hypertension; E11.9 Type 2 diabetes mellitus without complications; F17.210 Nicotine dependence, cigarettes, uncomplicated
CPT/HCPCS: 51702; 81001; 99283

== ENCOUNTER → 2024-01-17 13:45 | Outpatient (CLI) | payer MEDICARE, OTHER, SELFPAY ==
--- NOTE | ~2024-01-17 | XR_ITS ---
EXAMINATION: XR chest 2V Exam Date/Time: 01/17/2024 14:00 SALES ORDER SPECIALIST HISTORY: Nonspecific reaction to tuberculin skin test without active Comparison: 12/14/2021. RESULT: Lines, tubes, and devices: None. Lungs and pleura: Emphysematous/senescent change, otherwise clear. Cardiomediastinal silhouette: Stable. Calcified hilar nodes. Other: No acute osseous or upper abdominal finding. IMPRESSION: No acute cardiopulmonary process. Reviewed, dictated and finalized at location K. S ORDER SPECIALIST
== END ==
PROVIDERS: PCP Emergency Medicine; Visit Provider Emergency Medicine
DX: R76.11 Nonspecific reaction to tuberculin skin test without active tuberculosis (principal)
CPT/HCPCS: 71046

== ENCOUNTER 2024-02-01 14:50 | Inpatient (IN) | payer MEDICARE, OTHER, SELFPAY ==
[2024-02-01] VITALS (8 sets, daily range): BP systolic 107–180; BP diastolic 59–87; PULSE 72–86; RESP 18–24; TEMP 37–38.5; O2SAT 95–100; BMI 23.1
--- NOTE | ~2024-02-01 | XR_ITS ---
XR chest 2V 02/01/2024 15:31 Indication: Shortness of breath Procedure: 2 view chest Comparison: 01/17/2024 Findings: Heart size normal. Interval development of bibasilar airspace disease, right greater than l eft. No pneumothorax. Small pleural effusions. No acute osseous abnormality. Impression: 1: Bibasilar airspace disease may represent pneumonia or edema. Reviewed, dictated and finalized at location A. Impression: 1: Bibasilar airspace disease may represent pneumonia or edema.
--- NOTE | 2024-02-01 15:07 | ECG_ITS ---
Measurements Intervals [place] Rate: 85 P: 46 MI: 200 QRS: -63 QRSD: 106 T: 82 QT: 376 QTc: 449 Interpretive Statements SINUS RHYTHM BORDERLINE AV CONDUCTION DELAY LEFT ANTERIOR FASCICULAR BLOCK CANNOT RULE OUT SEPTAL INFARCT, AGE INDETERMINATE ST-T WAVE ABNORMALITY IN HIGH LATERAL LEADS- CONSIDER ISCHEMIA BASELINE ARTIFACT- I, II, III, AVR, AVL,A VF, V1-V6 ABNORMAL ECG COMPARED TO ECG 12/14/2021 12:05:59 NO SIGNIFICANT CHANGES Electronically Signed On 02-01-2024 15:31:29 CDT by Gokul Ruff D.O.
[2024-02-01] MEDS: ACETAMINOPHEN 325 MG TABLET 650 MG PO (15:11)
[2024-02-01 16:31] LABS: Basophils Percent Auto 0.3 % (0.2-1.2); Eosinophils Absolute Auto 0.2 K/mm3 (0-0.3); Eosinophils Percent Auto 1.5 % (0-4.4); Hematocrit 33.3 % (42.0-52.0); Hemoglobin 10.5 g/dL (14.0-18.0); Immature Granulocyte Absolute 0.13 K/mm3 (0.00-0.031); Immature Granulocyte Percent A 0.9 % (0-0.5); Lymphocytes Absolute Auto 1.65 K/mm3 (0.9-3.2); Lymphocytes Percent Auto 11.6 % (18.3-44.2); Mean Corpuscular HGB Conc 31.5 g/dl (32-36); Mean Corpuscular Hemoglobin 29.4 pg (26-34); Mean Corpuscular Volume 93.3 fl (80-100); Mean Platelet Volume 9.1 fl (7.4-10.4); Monocytes Percent Auto 7.2 % (2.6-8.5); Neutrophils Absolute Auto 11.1 K/mm3 (1.3-6.7); Neutrophils Percent Auto 78.5 % (45.5-73.1); Platelet Count Result 321 k/mm3 (150-375); Red Blood Count 3.57 M/mm3 (4.6-6.20); Red Cell Distribution Width 14.5 % (11.5-14.5); White Blood Count 14.2 K/mm3 (4.5-10.0)
[2024-02-01 16:39] LABS: Partial Thromboplastin Time 22.1 Seconds (22.3-36.8); Prothrombin Time 13.8 Seconds (11.1-14.7)
[2024-02-01 16:41] LABS: Alanine Aminotransferase 32 U/L (6-50); Albumin Level 3.3 g/dL (3.5-5.1); Alkaline Phosphatase 108 U/L (38-126); Anion Gap 6 mmol/L (8-16); Aspartate Amino Transferase 46 U/L (17-59); Bilirubin,Total 0.7 mg/dL (0.2-1.3); Blood Urea Nitrogen 26 mg/dL (9-20); Calcium 8.5 mg/dL (8.4-10.2); Carbon Dioxide 22 mmol/L (22-30); Chloride 111 mmol/L (98-107); Estimated CRCL calculation 57 ml/min; Estimated Glomerular Filt Rate > 60; Glucose 121 mg/dL (65-110); Potassium 3.8 mmol/L (3.4-5.0); Sodium 139 mmol/L (137-145)
[2024-02-01 16:42] LABS: Lactic Acid Reflex 1.5 mmol/L (0.7-2.0)
[2024-02-01 16:58] LABS: Appearance Urine Clear (Clear); Bacteria Urine 3+ /hpf; Bilirubin Urine Negative (Negative); Blood Urine Negative (Negative); Color Urine Yellow (Yellow); Glucose Urine UA Negative (Negative); Ketones Urine Negative (Negative); Leukocyte Esterase Ur 1+ LEU/UL (Negative); Nitrate Urine Negative (Negative); Non Pathogenic Casts 0-2; Protein Urine Trace mg/dL (Negative); RBC Urine 0-2 /hpf (0-2); Squamous Epithelial Cell Urine None Seen /hpf (Few)
--- NOTE | 2024-02-01 16:58 | ED.GENADULT ---
HPI - General Adult General Chief complaint: Shortness of Breath/Dyspnea Stated complaint: SOB, Fever Time Seen by Provider: 02/01/24 14:52 History of Present Illness HPI narrative: Patient is a 69-year-old male who presents ER with shortness of breath [facility]. Patient was found to be febrile and is more confused than what is typical for him. Currently oriented to self and place. He cannot give any history as twice here. He has no complaints this time. Related Data Home Medications Medication Instructions Recorded Confirmed polysaccharide iron complex 150 mg 150 mg PO DAILY 11/16/23 12/28/23 iron capsule (Ferrex) tamsulosin 0.4 mg capsule 0.4 mg PO QHS 11/16/23 12/28/23 Allergies Allergy/AdvReac Type Severity Reaction Status Date / Time No Known Allergies Allergy Mild Verified 12/15/21 02:43 Review of Systems Review of Systems: ROS unobtainable: Yes unobtainable due to mental status PMFSH Past Medical History Medical History (Updated 02/01/24 @ 19:47 by Joel Tiwari MD) Atrial fibrillation by electrocardiogram Cerebral infarction Diabetes Hyperlipidemia Hypertension Neurogenic bladder Social History Social History Smoking packs per day: 1 Smoking cigarettes per day: 20.0 Years smoked: 49 Smoking pack-years: 49.00 Smoking status: Current every day smoker Tobacco type: cigarettes Second hand tobacco smoke exposure: Yes Alcohol intake: current Drinks per week: 20 Substance use: never Substance use type: does not use Spiritual care concerns: No Exam Narrative: GENERAL: fatigued-appearing, well-nourished, and in no acute distress. HEAD: Normocephalic, atraumatic. ENT: Mucous membranes moist. NECK: Supple. CHEST: Clear to auscultation. No respiratory distress. HEART: Regular rate and rhythm. Normal peripheral pulses. ABDOMEN: Soft, nontender, nondistended. EXTREMITIES: Normal range of motion. No edema. SKIN: Warm, dry, no rash. NEURO: Alert and oriented x2. PSYCH: Normal mood and affect. Course Course Emergency Course: patient accepted the hospitalist service. Started on IV antibiotics for pneumonia. Fever has decreased with oral Tylenol. Vital Signs Vital signs: Vital Signs Temperature 101.3 F H 02/01/24 14:50 Pulse Rate 86 02/01/24 14:50 Respiratory Rate 22 H 02/01/24 14:50 Blood Pressure 180/87 H 02/01/24 14:50 Pulse Oximetry 96 02/01/24 14:50 Oxygen Delivery Room Air 02/01/24 14:50 Temperature 98.6 F 02/01/24 17:46 Pulse Rate 83 02/01/24 17:46 Respiratory Rate 20 02/01/24 17:46 Blood Pressure 135/71 02/01/24 17:46 Pulse Oximetry 100 02/01/24 17:46 Oxygen Delivery Room Air 02/01/24 14:50 Medical Decision Making Vital Signs Vital Signs: Vital Signs Temperature 101.3 F H 02/01/24 14:50 Pulse Rate 86 02/01/24 14:50 Respiratory Rate 22 H 02/01/24 14:50 Blood Pressure 180/87 H 02/01/24 14:50 Pulse Oximetry 96 02/01/24 14:50 Oxygen Delivery Room Air 02/01/24 14:50 Temperature 98.6 F 02/01/24 17:46 Pulse Rate 83 02/01/24 17:46 Respiratory Rate 20 02/01/24 17:46 Blood Pressure 135/71 02/01/24 17:46 Pulse Oximetry 100 02/01/24 17:46 Oxygen Delivery Room Air 02/01/24 14:50 Lab Data 02/01/24 16:18 02/01/24 16:18 Labs: Lab Results 02/01/24 02/01/24 02/01/24 Range/Units 16:17 16:18 16:46 WBC 14.2 H (4.5-10.0) K/mm3 RBC 3.57 L (4.6-6.20) M/mm3 Hgb 10.5 L (14.0-18.0) g/dL Hct 33.3 L (42.0-52.0) % MCV 93.3 (80-100) fl MCH 29.4 (26-34) pg MCHC 31.5 L (32-36) g/dl RDW 14.5 (11.5-14.5) % Plt Count 321 (150-375) k/mm3 MPV 9.1 (7.4-10.4) fl Immature Gran % (Auto) 0.9 H (0-0.5) % Neut % (Auto) 78.5 H (45.5-73.1) % Lymph % (Auto) 11.6 L (18.3-44.2) % [place] % (Auto) 7.2 (2.6-8.5) % Eos % (Auto) 1.5 (0-4.4) % Baso % (Auto) 0.
[2024-02-01 17:23] LABS: Add Urine Microscopic? YES
[2024-02-01 17:37] LABS: Influenza A QL RT-PCR Negative (Negative); Influenza B QL RT-PCR Negative (Negative); RSV RNA, RT-PCR Negative (Negative); SARS-CoV-2 RNA PCR Negative (Negative)
[2024-02-01] MEDS: AZITHROMYCIN 500 MG/NS 250 ML 500 MG/250 ML BAG 250 MG IVPB (19:00)
[2024-02-01] MEDS: SODIUM CHLORIDE 0.9% IV 1,000 ML 999 ML IV CONT (20:30)
--- NOTE | 2024-02-01 20:38 | PM.IMHP ---
H&P: HPI History of Present Illness Date/Time: 02/01/24 20:38 Chief Complaint: Shortness of breath. This is a 69-year-old male patient with a past medical history of type 2 diabetes hyperlipidemia hypertension neurogenic bladder who came to the emergency room from long-term because of shortness of breath. Patient was found to be febrile and confused more what is typical for him. Patient is awake alert not a good historian. Patient denies any chills dizziness lightheadedness no blurred vision no chest pains no shortness for breath no cough no nausea no vomiting no diarrhea no dysuria no muscle and joint pains. Vital signs in the emergency room were stable. CBC was significant for WBC 14.2 hemoglobin 10.5 hematocrit 33.3 platelets count 321. Neutrophil count 11.1. CMP was significant for BUN 26 creatinine 1.10. Glucose 121. Albumin 3.3. Chest x-ray showed bibasilar infiltrate. Urinalysis was consistent with urinary tract infection. Patient was given IV fluids IV ceftriaxone and IV azithromycin in the emergency room. Review of Systems Review of Systems: A 12 point review of system is done and is only positive what is dictated in the history of present illness. [facility] Past Medical History Medical History (Updated 02/01/24 @ 19:47 by Joel Tiwari MD) Atrial fibrillation by electrocardiogram Cerebral infarction Diabetes Hyperlipidemia Hypertension Neurogenic bladder Social History Social History Smoking packs per day: 1 Smoking cigarettes per day: 20.0 Years smoked: 49 Smoking pack-years: 49.00 Smoking status: Current every day smoker Tobacco type: cigarettes Second hand tobacco smoke exposure: Yes Alcohol intake: current Drinks per week: 20 Substance use: never Substance use type: does not use Spiritual care concerns: No Meds Home Medications and Allergies Home Medications Medication Instructions Recorded Confirmed Type multivitamin with folic acid 400 1 tablet PO QAM #60 tabs 12/18/21 12/28/23 Rx mcg tablet (Thera) polysaccharide iron complex 150 mg 150 mg PO DAILY 11/16/23 12/28/23 History iron capsule (Ferrex) tamsulosin 0.4 mg capsule 0.4 mg PO QHS 11/16/23 12/28/23 History Allergies Allergy/AdvReac Type Severity Reaction Status Date / Time No Known Allergies Allergy Mild Verified 12/15/21 02:43 Vital Signs Vital Signs - 24 hr 02/01/24 14:50 02/01/24 15:48 02/01/24 17:46 Temperature 101.3 F H 98.6 F Pulse Rate 86 84 83 Respiratory Rate 22 H 24 H 20 Blood Pressure 180/87 H 159/81 H 135/71 Pulse Oximetry 96 97 100 Oxygen Delivery Room Air Exam Const: Other: Awake alert not in acute distress. HENMT: Other: Normocephalic atraumatic. Neck: Other: Supple no thyromegaly. Resp: Other: Clear to auscultation bilaterally. Cardio: Other: S1-S2 regular no murmur heard. GI: Other: Soft nontender good bowel sounds. Extrem: Other: No pedal edema. H&P: Results Labs Labs: Short CBC 02/01/24 Range/Units 16:18 WBC 14.2 H (4.5-10.0) K/mm3 Hgb 10.5 L (14.0-18.0) g/dL Hct 33.3 L (42.0-52.0) % Plt Count 321 (150-375) k/mm3 BMP 02/01/24 16:18 Sodium 139 Potassium 3.8 Chloride 111 H Carbon Dioxide 22 BUN 26 H Creatinine 1.10 Glucose 121 H Calcium 8.5 Liver Function 02/01/24 Range/Units 16:18 Total Bilirubin 0.7 (0.2-1.3) mg/dL AST 46 (17-59) U/L ALT 32 (6-50) U/L Alkaline Phosphatase 108 (38-126) U/L Albumin 3.3 L (3.5-5.1) g/dL Urine 02/01/24 Range/Units 16:46 Urine Color Yellow (Yellow) Urine Appearance Clear (Clear) Urine pH 7.0 (5.0-9.0) Ur Specific [place] 1.010 (1.001-1.035) Urine Protein Trace (Negative) mg/dL Urine Glucose (UA) Negative (Negative) mg/dL Assessment and Plan Assessment and plan (1) Pneumonia: Code(s): J18.9 - Pneumonia, unspecified organism
--- NOTE | 2024-02-01 22:19 | ADMGEN ---
This patient, Yvan Chau, was admitted to [facility] Surg Room 324-02 at 2150. Patient/family oriented to hospital policies and general routines including ID bracelet, bed and alarms, visiting hours, pain management, procedures, bathroom and other care routines, personal items, smoking policy, room service/diet, and visiting hours. Information on how to activate the Rapid Response Team has been discussed. Patient/Family are encouraged to report perceived risks to care and to ask questions if they do not understand what they are told or what they should do.
[2024-02-01] MEDS: WATER FOR IRRIGATION, STERILE 1,000 ML BOTTLE 1000 ML (23:03)
[2024-02-01] MEDS: SODIUM CHLORIDE 0.9% IV 1,000 ML 125 ML IV CONT (23:04)
[2024-02-02 05:54] VITALS: BP 166/83; PULSE 86; RESP 20; TEMP 37; O2SAT 99
[2024-02-02 09:19] VITALS: PULSE 86
[2024-02-02] MEDS: TAMSULOSIN HCL 0.4 MG CAPSULE PO ×2 (09:19→17:48)
[2024-02-02] MEDS: MULTIVITAMINS THERAPEUTIC TAB (*BKC) 1 TABLET PO (09:19)
[2024-02-02] MEDS: METOPROLOL TARTRATE 50 MG TAB PO ×2 (09:19→20:40)
[2024-02-02] MEDS: FERROUS SULFATE LIQUID 325 MG/7.4 ML ELIXIR 200 MG PO ×2 (09:20→17:49)
[2024-02-02] MEDS: SODIUM CHLORIDE 0.9% IV 1,000 ML 125 ML IV CONT (09:22)
[2024-02-02] MEDS: BETHANECHOL CHLORIDE 5 MG TABLET PO ×3 (09:22→17:48)
[2024-02-02 12:28] LABS: Albumin Level 2.9 g/dL (3.5-5.1); Anion Gap 6 mmol/L (8-16); Basophils Percent Auto 0.3 % (0.2-1.2); Blood Urea Nitrogen 20 mg/dL (9-20); Calcium 8.1 mg/dL (8.4-10.2); Carbon Dioxide 22 mmol/L (22-30); Chloride 110 mmol/L (98-107); Eosinophils Absolute Auto 0.3 K/mm3 (0-0.3); Eosinophils Percent Auto 2.5 % (0-4.4); Estimated CRCL calculation 69 ml/min; Estimated Glomerular Filt Rate > 60; Glucose 172 mg/dL (65-110); Hematocrit 29.7 % (42.0-52.0); Hemoglobin 9.3 g/dL (14.0-18.0); Immature Granulocyte Absolute 0.11 K/mm3 (0.00-0.031); Lymphocytes Absolute Auto 2.26 K/mm3 (0.9-3.2); Lymphocytes Percent Auto 19.6 % (18.3-44.2); Mean Corpuscular HGB Conc 31.3 g/dl (32-36); Mean Corpuscular Volume 95.8 fl (80-100); Mean Platelet Volume 9.1 fl (7.4-10.4); Monocytes Percent Auto 8.7 % (2.6-8.5); Neutrophils Absolute Auto 7.8 K/mm3 (1.3-6.7); Neutrophils Percent Auto 67.9 % (45.5-73.1); Phosphorus 2.6 mg/dL (2.5-4.5); Platelet Count Result 273 k/mm3 (150-375); Potassium 3.6 mmol/L (3.4-5.0); Red Cell Distribution Width 14.6 % (11.5-14.5); Sodium 138 mmol/L (137-145); White Blood Count 11.5 K/mm3 (4.5-10.0)
--- NOTE | 2024-02-02 12:46 | PM.IMPN ---
Progress Note: A&P Assessment and Plan (1) Pneumonia: Code(s): J18.9 - Pneumonia, unspecified organism Status: Acute Assessment and Plan: Bi basilar pneumonia. Follow cultures. Continue IV ceftriaxone 1 g Q 24 hours and azithromycin (2) UTI (urinary tract infection): Code(s): N39.0 - Urinary tract infection, site not specified Status: Acute Assessment and Plan: Indwelling Bosch catheter with UA suggestive urinary tract infection. Cultures pending. On Rocephin IV. (3) Sepsis: Code(s): A41.9 - Sepsis, unspecified organism Status: Acute Assessment and Plan: Altered mental status and tachypnea score 2 points on the qSofa. Patient Rocephin azithromycin treating pneumonia UTI. Cultures pending. Currently patient on room air still confused much more awake/alert. Time Spent With Patient Time with patient: 25 - 35 minutes Subjective Date/time seen: 02/02/24 12:46 Interval history: Copied from H&P: 01/31: This is a 69-year-old male patient with a past medical history of type 2 diabetes hyperlipidemia hypertension neurogenic bladder who [facility] because of shortness of breath.? Patient was found to be febrile and confused more what is typical for him.? Patient is awake alert not a good historian.? Patient denies any chills dizziness lightheadedness no blurred vision no chest pains no shortness for breath no cough no nausea no vomiting no diarrhea no dysuria no muscle and joint pains.? Vital signs in the emergency room were stable.? CBC was significant for WBC 14.2 hemoglobin 10.5 hematocrit 33.3 platelets count 321.? Neutrophil count 11.1.? CMP was significant for BUN 26 creatinine 1.10.? Glucose 121.? Albumin 3.3.? Chest x-ray showed bibasilar infiltrate.? Urinalysis was consistent with urinary tract infection.? Patient was given IV fluids IV ceftriaxone and IV azithromycin in the emergency room. 02/01: Patient reports feeling better. He does not know what happened to bring him to the hospital. He states that he has been at the assisted living facility for about the last 3 months prior to that he did home. Patient has Bosch catheter in place for neurogenic bladder for the past 3 months. This was changed in the emergency department per report from nursing staff. After IV antibiotics and meds patient is still confused and still weak appearing. Consult PT and OT. Review of Systems Review of Systems: All systems reviewed & are unremarkable except as noted in HPI and below Exam Const: Other: Awake alert not in acute distress. HENMT: Other: Normocephalic atraumatic. Neck: Other: Supple no thyromegaly. Resp: Other: Clear to auscultation bilaterally. Cardio: Other: S1-S2 regular no murmur heard. GI: Other: Soft nontender good bowel sounds. Urinary Catheter: Urinary Catheter: patent and draining and urine clear Extrem: Other: No pedal edema. Objective Data Vital Signs Vital Signs: Vital Signs - 24 hr 02/01/24 14:50 02/01/24 15:48 02/01/24 17:46 Temperature 38.5 C H 37.0 C Pulse Rate 86 84 83 Respiratory Rate 22 H 24 H 20 Blood Pressure 180/87 H 159/81 H 135/71 Pulse Oximetry 96 97 100 Oxygen Delivery Room Air 02/01/24 18:00 02/01/24 19:00 02/01/24 20:00 Temperature Pulse Rate 77 74 73 Respiratory Rate 20 22 H 20 Blood Pressure 124/63 107/59 L 113/63 Pulse Oximetry 98 95 97 Oxygen Delivery 02/01/24 21:00 02/01/24 22:31 02/01/24 22:00 Temperature 37.1 C Pulse Rate 72 85 Respiratory Rate 18 20 Blood Pressure 119/66 147/73 H Pulse Oximetry 97 99 Oxygen Delivery Room Air 02/02/24 05:54 02/02/24 09:19 02/02/24 09:20 Temperature 37.0 C Pulse Rate 86 86 Respiratory Rate 20 Blood Pressure 166/83 H Pulse Oximetry 99 Oxygen Delivery Room Air Intake/Output Intake/Output: Intake & Output 01/30/24 01/31/24 02/01/24 02/02/24
[2024-02-02 14:00] VITALS: BP 125/63; PULSE 64; RESP 18; TEMP 36.9; O2SAT 99
--- NOTE | 2024-02-02 14:50 | PCPTNOTE ---
Attempted PT evaluation this date but pt declined stating that he didn't feel like getting up right now and was trying to take a nap. Will continue to attempt.
[2024-02-02 15:34] LABS: CRP 7.9 mg/dL (<1.0)
[2024-02-02 16:32] LABS: Glucose Point of Care 116 mg/dl (65-105)
[2024-02-02 16:37] LABS: Folic Acid > 20.0 ng/mL (2.76->20)
[2024-02-02 16:38] LABS: Procalcitonin 1.1 ng/mL
[2024-02-02 16:39] LABS: Iron 41 ug/dL (49-181)
[2024-02-02 16:53] LABS: Percent Iron Saturation 21 % (20-50)
[2024-02-02] MEDS: AZITHROMYCIN 250 MG TABLET 500 MG PO (17:49)
[2024-02-02] MEDS: CYANOCOBALAMIN INJ 1,000 MCG/ML VIAL 1000 MCG IM (17:59)
[2024-02-02 20:40] VITALS: PULSE 94
[2024-02-02 20:49] LABS: Glucose Point of Care 108 mg/dl (65-105)
[2024-02-02 20:54] VITALS: BP 151/82; PULSE 90; RESP 14; TEMP 36.4; O2SAT 98
[2024-02-03] VITALS (7 sets, daily range): BP systolic 127–161; BP diastolic 64–88; PULSE 66–77; RESP 14–18; TEMP 36.5–36.7; O2SAT 95–100
[2024-02-03 07:19] LABS: Glucose Point of Care 95 mg/dl (65-105)
[2024-02-03 07:41] LABS: Alanine Aminotransferase 26 U/L (6-50); Albumin Level 3.1 g/dL (3.5-5.1); Alkaline Phosphatase 96 U/L (38-126); Anion Gap 6 mmol/L (8-16); Aspartate Amino Transferase 34 U/L (17-59); Bilirubin,Total 0.5 mg/dL (0.2-1.3); Blood Urea Nitrogen 21 mg/dL (9-20); CRP 6.5 mg/dL (<1.0); Calcium 8.7 mg/dL (8.4-10.2); Carbon Dioxide 23 mmol/L (22-30); Chloride 108 mmol/L (98-107); Estimated CRCL calculation 63 ml/min; Estimated Glomerular Filt Rate > 60; Glucose 102 mg/dL (65-110); Magnesium 1.7 mg/dL (1.6-2.3); Potassium 3.5 mmol/L (3.4-5.0); Sodium 137 mmol/L (137-145)
[2024-02-03 07:52] LABS: Basophils Absolute Auto 0.1 K/mm3 (0.0-0.1); Basophils Percent Auto 0.4 % (0.2-1.2); Eosinophils Absolute Auto 0.4 K/mm3 (0-0.3); Eosinophils Percent Auto 3.3 % (0-4.4); Hematocrit 33.2 % (42.0-52.0); Hemoglobin 10.2 g/dL (14.0-18.0); Immature Granulocyte Absolute 0.16 K/mm3 (0.00-0.031); Immature Granulocyte Percent A 1.4 % (0-0.5); Lymphocytes Absolute Auto 2.89 K/mm3 (0.9-3.2); Lymphocytes Percent Auto 24.5 % (18.3-44.2); Mean Corpuscular HGB Conc 30.7 g/dl (32-36); Mean Corpuscular Hemoglobin 29.1 pg (26-34); Mean Corpuscular Volume 94.6 fl (80-100); Mean Platelet Volume 9.1 fl (7.4-10.4); Monocytes Absolute Auto 1.1 K/mm3 (0.1-0.6); Monocytes Percent Auto 9.1 % (2.6-8.5); Neutrophils Absolute Auto 7.3 K/mm3 (1.3-6.7); Neutrophils Percent Auto 61.3 % (45.5-73.1); Platelet Count Result 321 k/mm3 (150-375); Red Blood Count 3.51 M/mm3 (4.6-6.20); Red Cell Distribution Width 14.6 % (11.5-14.5); White Blood Count 11.8 K/mm3 (4.5-10.0)
[2024-02-03 08:29] LABS: Procalcitonin 0.9 ng/mL
[2024-02-03] MEDS: CYANOCOBALAMIN 1,000 MCG TABLET 1000 MCG PO (08:43)
[2024-02-03] MEDS: BETHANECHOL CHLORIDE 5 MG TABLET PO ×3 (08:44→16:43)
[2024-02-03] MEDS: TAMSULOSIN HCL 0.4 MG CAPSULE PO ×2 (08:44→16:43)
[2024-02-03] MEDS: MULTIVITAMINS THERAPEUTIC TAB (*BKC) 1 TABLET PO (08:44)
[2024-02-03] MEDS: FERROUS SULFATE LIQUID 325 MG/7.4 ML ELIXIR 200 MG PO ×2 (08:45→16:46)
[2024-02-03] MEDS: METOPROLOL TARTRATE 50 MG TAB PO ×2 (08:46→20:36)
[2024-02-03 11:53] LABS: Glucose Point of Care 161 mg/dl (65-105)
--- NOTE | 2024-02-03 13:54 | P.PNIM_ITS ---
Progress Note: A&P Assessment and Plan (1) Pneumonia: Code(s): J18.9 - Pneumonia, unspecified organism Status: Acute Assessment and Plan: Patient presented to ED with altered mental status. * Chest x-ray showing bibasilar airspace disease representing pneumonia or edema. * Blood cultures no growth to date. * Continue IV ceftriaxone 1 g Q 24 hours and azithromycin * Patient not requiring oxygen supplementation. * Mental status improving with treatment of infection. (2) UTI (urinary tract infection): Code(s): N39.0 - Urinary tract infection, site not specified Status: Ruled-out Assessment and Plan: Indwelling Bosch catheter with UA suggestive urinary tract infection. * Patient treated with Rocephin * Urine cultures came back as no growth. * Rocephin continued for treatment of pneumonia. (3) Sepsis: Code(s): A41.9 - Sepsis, unspecified organism Status: Resolved Assessment and Plan: * Altered mental status and tachypnea score 2 points on the qSofa. * Patient Rocephin azithromycin treating pneumonia and UTI. * Currently patient on room air * Patient alert and oriented to self, time and situation. Was unable to tell me where he was at. * Patient no longer meeting sepsis criteria. Subjective Date/time seen: 02/03/24 13:54 Interval history: Patient doing much better. He is alert and oriented to self, time and situation but was not sure where he was. According to nurse and daycare manager this is sleeps and lb better than his presentation. Will continue current therapy with plan of discharge tomorrow. Exam Narrative: GENERAL: Comfortable, no acute distress HENMT: moist mucous membranes EYES: EOM intact b/l NECK: no lymphadenopathy RESPIRATORY: clear to auscultation CARDIO: RRR GI: soft, nontender, bowel sounds present SKIN: no rashes EXTREMITIES: no edema, redness or tenderness Objective Data Vital Signs Vital Signs: Vital Signs - 24 hr 02/02/24 14:00 02/02/24 20:40 02/02/24 20:54 Temperature 98.5 F 97.6 F Pulse Rate 64 94 90 Respiratory Rate 18 14 Blood Pressure 125/63 151/82 H Pulse Oximetry 99 98 Oxygen Delivery 02/03/24 05:48 02/03/24 08:46 02/03/24 09:25 Temperature 97.8 F Pulse Rate 73 77 Respiratory Rate 14 Blood Pressure 158/83 H Pulse Oximetry 96 Oxygen Delivery Room Air 02/03/24 08:00 Temperature Pulse Rate 77 Respiratory Rate Blood Pressure Pulse Oximetry 95 Oxygen Delivery Room Air Intake/Output Intake/Output: Intake & Output 01/31/24 02/01/24 02/02/24 02/03/24 23:59 23:59 23:59 23:59 Intake Total 300 1950 238 Output Total 5908 6933 Balance 387 -799 -3430 Meds/Results Medications: Active Medications Generic Name Dose Route Start Last Admin Trade Name Freq PRN Reason Stop Dose Admin Acetaminophen 650 mg 02/01/24 19:42 Acetaminophen 325 Mg Tablet PO Q4H PRN Mild Pain (1-3) or Fever Azithromycin 500 mg 02/02/24 18:00 02/02/24 17:49 Azithromycin 250 Mg
--- NOTE | 2024-02-03 13:54 | PM.IMPN ---
Progress Note: A&P Assessment and Plan (1) Pneumonia: Code(s): J18.9 - Pneumonia, unspecified organism Status: Acute Assessment and Plan: Patient presented to ED with altered mental status. Chest x-ray showing bibasilar airspace disease representing pneumonia or edema. Blood cultures no growth to date. Continue IV ceftriaxone 1 g Q 24 hours and azithromycin Patient not requiring oxygen supplementation. Mental status improving with treatment of infection. (2) UTI (urinary tract infection): Code(s): N39.0 - Urinary tract infection, site not specified Status: Ruled-out Assessment and Plan: Indwelling Bosch catheter with UA suggestive urinary tract infection. Patient treated with Rocephin Urine cultures came back as no growth. Rocephin continued for treatment of pneumonia. (3) Sepsis: Code(s): A41.9 - Sepsis, unspecified organism Status: Resolved Assessment and Plan: Altered mental status and tachypnea score 2 points on the qSofa. Patient Rocephin azithromycin treating pneumonia and UTI. Currently patient on room air Patient alert and oriented to self, time and situation. Was unable to tell me where he was at. Patient no longer meeting sepsis criteria. Subjective Date/time seen: 02/03/24 13:54 Interval history: Patient doing much better. He is alert and oriented to self, time and situation but was not sure where he was. According to nurse and residential care facility manager this is sleeps and lb better than his presentation. Will continue current therapy with plan of discharge tomorrow. Exam Narrative: GENERAL: Comfortable, no acute distress HENMT: moist mucous membranes EYES: EOM intact b/l NECK: no lymphadenopathy RESPIRATORY: clear to auscultation CARDIO: RRR GI: soft, nontender, bowel sounds present SKIN: no rashes EXTREMITIES: no edema, redness or tenderness Objective Data Vital Signs Vital Signs: Vital Signs - 24 hr 02/02/24 14:00 02/02/24 20:40 02/02/24 20:54 Temperature 98.5 F 97.6 F Pulse Rate 64 94 90 Respiratory Rate 18 14 Blood Pressure 125/63 151/82 H Pulse Oximetry 99 98 Oxygen Delivery 02/03/24 05:48 02/03/24 08:46 02/03/24 09:25 Temperature 97.8 F Pulse Rate 73 77 Respiratory Rate 14 Blood Pressure 158/83 H Pulse Oximetry 96 Oxygen Delivery Room Air 02/03/24 08:00 Temperature Pulse Rate 77 Respiratory Rate Blood Pressure Pulse Oximetry 95 Oxygen Delivery Room Air Intake/Output Intake/Output: Intake & Output 01/31/24 02/01/24 02/02/24 02/03/24 23:59 23:59 23:59 23:59 Intake Total 300 1950 238 Output Total 4671 1900 Balance 990 -[phone] -[phone] Meds/Results Medications: Active Medications Generic Name Dose Route Start Last Admin Trade Name Freq PRN Reason Stop Dose Admin Acetaminophen 650 mg 02/01/24 19:42 Acetaminophen 325 Mg Tablet PO Q4H PRN Mild Pain (1-3) or Fever Azithromycin 500 mg 02/02/24 18:00 02/02/24 17:49 Azithromycin 250 Mg Tablet PO 02/05/24 18:01 500 mg 1800 BASSEM Administration Bethanechol Chloride 5 mg 02/02/24 09:00 02/03/24 12:34 Bethanechol Chloride 5 Mg Tablet PO 5 mg TID BASSEM Administration Cyanocobalamin 1,000 mcg 02/03/24 09:00 02/03/24 08:43 Cyanocobalamin 1,000 Mcg Tablet PO 1,000 mcg QAM BASSEM Administration Dextrose 12.5 gm 02/02/24 14:27 Dextrose 50% 25 Gm/50 Ml Syringe IV PUSH PRN PRN Hypoglycemia Protocol Ferrous Sulfate 200 mg 02/02/24 09:00 02/03/24 08:45 Ferrous Sulfate Liquid 325 Mg/7.4 Ml Elixir PO 03/03/24 08:59 200 mg BID BASSEM Administration Glucagon 1 mg 02/02/24 14:27 Glucagon For Inj 1 Mg Vial IM PRN PRN Hypoglycemia Protocol Glucose 15 gm 02/02/24 14:27 Glucose Oral Gel 15 Gm Of Glucse In 37.5 Gm Tube PO PRN PRN Hypoglycemia Protocol Ceftriaxone Sodium 1 gm in 50 mls @ 100
[2024-02-03 16:46] LABS: Glucose Point of Care 129 mg/dl (65-105)
[2024-02-03] MEDS: AZITHROMYCIN 250 MG TABLET 500 MG PO (17:41)
[2024-02-03 21:16] LABS: Glucose Point of Care 131 mg/dl (65-105)
[2024-02-04 05:33] VITALS: BP 157/85; PULSE 60; RESP 16; TEMP 36.2; O2SAT 97
[2024-02-04 07:02] LABS: Basophils Absolute Auto 0.1 K/mm3 (0.0-0.1); Basophils Percent Auto 0.6 % (0.2-1.2); Eosinophils Absolute Auto 0.4 K/mm3 (0-0.3); Eosinophils Percent Auto 3.6 % (0-4.4); Hematocrit 32.7 % (42.0-52.0); Immature Granulocyte Percent A 1.7 % (0-0.5); Lymphocytes Absolute Auto 3.03 K/mm3 (0.9-3.2); Lymphocytes Percent Auto 25.4 % (18.3-44.2); Mean Corpuscular HGB Conc 30.6 g/dl (32-36); Mean Corpuscular Hemoglobin 29.3 pg (26-34); Mean Corpuscular Volume 95.9 fl (80-100); Mean Platelet Volume 9.2 fl (7.4-10.4); Monocytes Absolute Auto 1.2 K/mm3 (0.1-0.6); Monocytes Percent Auto 10.2 % (2.6-8.5); Neutrophils Percent Auto 58.5 % (45.5-73.1); Platelet Count Result 334 k/mm3 (150-375); Red Blood Count 3.41 M/mm3 (4.6-6.20); Red Cell Distribution Width 14.4 % (11.5-14.5); White Blood Count 11.9 K/mm3 (4.5-10.0)
[2024-02-04 07:12] LABS: Alanine Aminotransferase 26 U/L (6-50); Albumin Level 3.1 g/dL (3.5-5.1); Alkaline Phosphatase 96 U/L (38-126); Anion Gap 7 mmol/L (8-16); Aspartate Amino Transferase 35 U/L (17-59); Bilirubin,Total 0.5 mg/dL (0.2-1.3); Blood Urea Nitrogen 22 mg/dL (9-20); CRP 5.4 mg/dL (<1.0); Calcium 8.5 mg/dL (8.4-10.2); Carbon Dioxide 21 mmol/L (22-30); Chloride 109 mmol/L (98-107); Estimated CRCL calculation 57 ml/min; Estimated Glomerular Filt Rate > 60; Glucose 104 mg/dL (65-110); Magnesium 1.7 mg/dL (1.6-2.3); Potassium 3.5 mmol/L (3.4-5.0); Sodium 137 mmol/L (137-145)
[2024-02-04 07:24] LABS: Glucose Point of Care 98 mg/dl (65-105)
[2024-02-04] MEDS: BETHANECHOL CHLORIDE 5 MG TABLET PO (09:00)
[2024-02-04] MEDS: FERROUS SULFATE LIQUID 325 MG/7.4 ML ELIXIR 200 MG PO (09:01)
[2024-02-04 09:02] VITALS: PULSE 72
[2024-02-04] MEDS: CYANOCOBALAMIN 1,000 MCG TABLET 1000 MCG PO (09:02)
[2024-02-04] MEDS: MULTIVITAMINS THERAPEUTIC TAB (*BKC) 1 TABLET PO (09:02)
[2024-02-04] MEDS: METOPROLOL TARTRATE 50 MG TAB PO (09:02)
[2024-02-04] MEDS: AMOXICILLIN/CLAVULANATE K 875-125 MG TAB 1 TABLET PO (09:05)
[2024-02-04] MEDS: TAMSULOSIN HCL 0.4 MG CAPSULE PO (09:05)
--- NOTE | 2024-02-04 11:07 | PM.DS ---
DS: Admitting Diagnosis Discharge Date 02/04/24 Admitting Diagnosis UTI pneumonia DS: Discharge Diagnosis Discharge Diagnosis (1) Pneumonia: Code(s): J18.9 - Pneumonia, unspecified organism Status: Acute (2) UTI (urinary tract infection): Code(s): N39.0 - Urinary tract infection, site not specified Status: Ruled-out (3) Sepsis: Code(s): A41.9 - Sepsis, unspecified organism Status: Resolved DS: Summary Hospital Course Hospital Course: This is a 69-year-old male with a past medical history of diabetes, hyperlipidemia, hypertension and neurogenic bladder the presented to the ED due to shortness of breath and altered mental status. in the ED CBC was significant for WBC 14.2 hemoglobin 10.5 hematocrit 33.3 platelets count 321.? Neutrophil count 11.1.? CMP was significant for BUN 26 creatinine 1.10.? Glucose 121.? Albumin 3.3.? Chest x-ray showed bibasilar infiltrate.? Urinalysis was consistent with urinary tract infection.? Patient was given IV fluids IV ceftriaxone and IV azithromycin in the emergency room. patient was treated for pneumonia and UTI during his hospitalization. His overall mental status greatly improved on antibiotic therapy. His urine culture came back as no growth but he was continued on antibiotics for pneumonia. Patient was able to be transition to p.o. antibiotics. His labs and vital signs are stable and he is medically cleared for discharge at this time. Time Spent with Patient Time attestation: Total time spent providing and/or coordinating discharge services: Exam Narrative: GENERAL: Comfortable, no acute distress HENMT: moist mucous membranes EYES: EOM intact b/l NECK: no lymphadenopathy RESPIRATORY: clear to auscultation CARDIO: RRR GI: soft, nontender, bowel sounds present SKIN: no rashes EXTREMITIES: no edema, redness or tenderness DS: Data Data Completed and Pending Labs on day of discharge: Labs from last 24 hours 02/04/24 02/04/24 02/03/24 07:22 06:18 20:01 WBC 11.9 H RBC 3.41 L Hgb 10.0 L Hct 32.7 L MCV 95.9 MCH 29.3 MCHC 30.6 L RDW 14.4 Plt Count 334 MPV 9.2 Immature Gran % (Auto) 1.7 H Neut % (Auto) 58.5 Lymph % (Auto) 25.4 [place] % (Auto) 10.2 H Eos % (Auto) 3.6 Baso % (Auto) 0.6 Lymph # (Auto) 3.03 [place] # (Auto) 1.2 H Eos # (Auto) 0.4 H Baso # (Auto) 0.1 Abs Immat Gran (auto) 0.20 H Absolute Neuts (auto) 7.0 H Absolute Nucleated RBC 0.000 Nucleated RBC % 0.0 Sodium 137 Potassium 3.5 Chloride 109 H Carbon Dioxide 21 L Anion Gap 7 L BUN 22 H Creatinine 1.10 Estim Creat Clear Calc 57 Estimated GFR > 60 Glucose 104 POC Capillary Glucose 98 131 H Calcium 8.5 Magnesium 1.7 Total Bilirubin 0.5 AST 35 ALT 26 Alkaline Phosphatase 96 C-Reactive Protein 5.4 H Total Protein 6.0 L Albumin 3.1 L 02/03/24 02/03/24 16:41 11:39 WBC RBC Hgb Hct MCV MCH MCHC RDW Plt Count MPV Immature Gran % (Auto) Neut % (Auto) Lymph % (Auto) [place] % (Auto) Eos % (Auto) Baso % (Auto) Lymph # (Auto) [place] # (Auto) Eos # (Auto) Baso # (Auto) Abs Immat Gran (auto) Absolute Neuts (auto) Absolute Nucleated RBC Nucleated RBC % Sodium Potassium Chloride Carbon Dioxide Anion Gap BUN Creatinine Estim Creat Clear Calc Estimated GFR Glucose POC Capillary Glucose 129 H 161 H Calcium Magnesium Total Bilirubin AST ALT Alkaline Phosphatase C-Reactive Protein Total Protein Albumin Preliminary micro results at discharge 02/01/24 16:17 Blood Culture - Preliminary Blood 02/01/24 16:24 Blood Culture - Preliminary Blood Discharge Plan Discharge Attending physician on discharge: Tommy Duarte Discharging Clinician: Ana Cristina Molina Patient Disposition: [facility] Assisted/Asst Living Activity: a
[2024-02-04 11:44] LABS: Glucose Point of Care 175 mg/dl (65-105)
== END 2024-02-04 12:37 | disposition home health service (06) | DRG 871 ==
LOC: ANHED 19:47 → ANH3MEDSUR 21:09
PROVIDERS: Nurse Practitioner; Admitting Provider Internal Medicine Infectious Disease; Emergency Provider Emergency Medicine; PCP Emergency Medicine; Visit Provider Internal Medicine Critical Care Medicine
DX: A41.9 Sepsis, unspecified organism (principal); J18.9 Pneumonia, unspecified organism; G93.49 Other encephalopathy; I10 Essential (primary) hypertension; E11.9 Type 2 diabetes mellitus without complications; E78.5 Hyperlipidemia, unspecified; N31.9 Neuromuscular dysfunction of bladder, unspecified; Z20.822 Contact with and (suspected) exposure to COVID-19; I48.91 Unspecified atrial fibrillation; F17.210 Nicotine dependence, cigarettes, uncomplicated; Z86.73 Personal history of transient ischemic attack (TIA), and cerebral infarction without residual deficits
CPT/HCPCS: 36415; 71046; 80053; 80069; 82607; 82728; 82746; 82948; 83540; 83550; 83605; 83735; 84145; 85025; 85610; 85730; 86140; 87040; 87086; 87088; 87637; 93005; 96365; 96367; 97161; 97165; 99285; A9270; G0378; J0456; J0696; J3420; J7030

== ENCOUNTER 2024-03-15 14:03 | Inpatient (IN) | payer MEDICARE, OTHER, SELFPAY ==
[2024-03-15] VITALS (21 sets, daily range): BP systolic 107–141; BP diastolic 57–84; PULSE 78–89; RESP 15–27; TEMP 36.7–36.9; O2SAT 94–100
--- NOTE | ~2024-03-15 | XR_ITS ---
XR chest 1V portable 03/20/2024 10:38 Indication: Pleural effusion Procedure: AP portable chest Comparison: Comparison to multiple prior studies sequentially, with oldest reviewed study dated 01/17. Findings: Patchy bilateral airspace disease, compatible with pneumonia. Heart size normal. No signifi cant effusion or pneumothorax. No acute osseous abnormality. Impression: 1: Patchy bilateral airspace disease, compatible with pneumonia. Reviewed, dictated and finalized at location B. Impression: 1: Patchy bilateral airspace disease, compatible with pneumonia.
--- NOTE | ~2024-03-15 | MR_ITS ---
EXAMINATION: MR brain/brain stem wo/w con DATE: 03/20/2024 12:32 INDICATION: Confusion. TECHNIQUE: Magnetic resonance imaging (MRI) of the brain and brainstem was performed without and with 14 mL MultiHance intravenous contrast. COMPARISON: Head CT 03/19/2024 FINDINGS: There are scattered areas of nonspecific increased T2-weighted signal intensity in the cere bral white matter. There are old infarcts in the bilateral basal ganglia. There is no intracranial he morrhage, acute infarction, or abnormal intracranial mass lesion. The ventricles are normal in size. The paranasal sinuses are clear. The mastoid air cells are normal. The orbits are normal. IMPRESSION: 1. 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 2. Mild nonspecific cerebral white matter disease, which likely represents chronic small vessel ische andrea disease. Reviewed, dictated and finalized at location A. IMPRESSION: 1. 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 2. 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
--- NOTE | ~2024-03-15 | CT_ITS ---
EXAMINATION: CT brain wo con DATE: 03/15/2024 16:01 INDICATION: Altered mental status. TECHNIQUE: Computed tomography (CT) of the head was performed without intravenous contrast. The mA wa s adjusted according to patient size. Iterative reconstruction technique was employed. The dose-lengt h product was 605.33 mGy-cm. COMPARISON: Head CT 12/14/2021 FINDINGS: There are old infarcts in the bilateral basal ganglia. There are scattered areas of low att enuation in the cerebral white matter. There is no intracranial hemorrhage, acute infarction, or abno rmal intracranial mass lesion. The ventricles are normal in size. There is mild mucosal thickening in left maxillary sinus. The mastoid air cells are normal. The orbits are normal. IMPRESSION: 1. 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 2. Mild nonspecific cerebral white matter disease, which likely represents chronic small vessel ische andrea disease. Reviewed, dictated and finalized at location E. IMPRESSION: 1. 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 2. 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
--- NOTE | ~2024-03-15 | XR_ITS ---
EXAMINATION: XR barium swallow modified DATE: 03/19/2024 09:47 INDICATION: Dysphagia. TECHNIQUE: The patient was given barium-containing material of multiple consistencies to swallow by t grey speech pathologist while I performed fluoroscopy. Fluoroscopy exposure time was 1.9 minutes. The n umber of fluoroscopy images saved to the PACS was 1. Dose-area product was 1.442 Gy-cm^2. FINDINGS: There is reduced laryngeal elevation, reduced tongue base retraction, vallecular residue, and pyrifor m sinus residue. IMPRESSION: 1. No laryngeal penetration or aspiration. 2. Please refer to the speech therapy report for recommendations. Reviewed, dictated and finalized at location A.
--- NOTE | ~2024-03-15 | XR_ITS ---
XR chest 2V DATE: 03/18/2024 11:25 INDICATION: Cough. Pneumonia. TECHNIQUE: PA and lateral views COMPARISON: March 15, 2024 AP chest FINDINGS: There is considerable interval improvement of bilateral pulmonary infiltrates since 03/15/20 24. Diminished prominence of minor fissure. Small pleural effusions are suggested. Aortic arch calcification. IMPRESSION: Considerable interval improvement of bilateral pulmonary infiltrates and diminished promi nence of the minor fissure since 03/15/2024. This suggests improvement of congestive heart failure and pulmonary edema. Minimal residual infiltrates and small pleural effusions remain. Reviewed, dictated and finalized at location A. IMPRESSION: Considerable interval improvement of bilateral pulmonary infiltrate s and diminished prominence of the minor fissure since 03/15/2024. This suggests improvement of congestive heart failure and pulmonary edema. Minimal residual infiltrates and small pleural effusions remain.
--- NOTE | ~2024-03-15 | CT_ITS ---
EXAMINATION: CTA brain carotid DATE: 03/19/2024 18:17 INDICATION: AMS TECHNIQUE: Computed tomographic angiography (CTA) of the head was performed without and with 100 mL O mnipaque-350 intravenous contrast. CTA of the neck was performed with intravenous contrast. Automated exposure control and iterative reconstruction technique were employed. The dose-length product was 1 914.15 mGy-cm. Maximum intensity projections were created by the technologist on a separate workstati on. COMPARISON: CT brain 03/15/2024; x-ray chest 03/18/2024. FINDINGS: CT BRAIN: No acute large vessel infarct, intracranial hemorrhage, mass, or hydrocephalus. Mild atrophy and cafeteria or lunchroom checker shawn white matter change. Atherosclerotic intracranial calcification. Old bilateral basal ganglia lacu roz infarcts. Mild left maxillary mucosal thickening. CTA HEAD: No large vessel occlusion, aneurysm, high flow vascular malformation, nidus or extravasation. Moderat e calcified plaque in the bilateral cavernous carotids. Mild-moderate noncalcified plaque in the bila teral M1 segments, greater on the right. Symmetric parenchymal enhancement. Patent cerebral veins. CTA NECK: Aortic arch and proximal great vessels: Normal arch anatomy. Moderate arch calcification. Right common carotid, carotid bifurcation, and internal carotid artery: Calcified plaque at the bifur cation.There is 0% stenosis of the proximal right internal carotid artery relative to normal distal a rtery lumen diameter (NASCET criteria). Left common carotid, carotid bifurcation, and internal carotid artery: Calcified plaque at the bifurc ation.There is 0% stenosis of the proximal left internal carotid artery relative to normal distal art korye lumen diameter (NASCET criteria). Vertebral arteries: No significant plaque or stenosis. Other findings: Mediastinal and bilateral hilar lymphadenopathy. Central left upper lobe and bilatera l lower lobe groundglass and consolidative opacities. Diffuse septal thickening. Moderate bilateral p leural fluid collections. IMPRESSION: No acute intracranial process. No large vessel intracranial occlusion, high-grade intracranial stenosis, or aneurysm. No carotid or vertebral artery occlusion, dissection, or significant stenosis. Pulmonary opacities likely representing moderate pulmonary edema. Infection is not excluded. Moderate bilateral pleural effusions Reviewed, dictated and finalized at location K. IMPRESSION: No acute intracranial process. No large vessel intracranial occlusion, high-grade intracranial stenosis, or an eurysm. No carotid or vertebral artery occlusion, dissection, or significant stenosis. Pulmonary opacities likely representing moderate pulmonary edema. Infection is not excluded. Moderate bilateral pleural effusions
--- NOTE | ~2024-03-15 | XR_ITS ---
EXAMINATION: XR chest 1V DATE: 03/15/2024 15:53 INDICATION: Altered mental status. TECHNIQUE: A single frontal view of the chest was obtained. COMPARISON: Chest 2 views 02/01/2024 FINDINGS: There are airspace opacities in the mid and lower lung zones, right worse than left. There is a small left pleural effusion. No pneumothorax. The heart size is normal. IMPRESSION: 1. Airspace opacities in the mid and lower lung zones, worsened from 02/01/2024, consistent with pneum onia. 2. Small left pleural effusion. Reviewed, dictated and finalized at location E. IMPRESSION: 1. Airspace opacities in the mid and lower lung zones, worsened from 02/01/2024, consistent with pneumonia. 2. Small left pleural effusion.
--- NOTE | 2024-03-15 14:33 | ECG_ITS ---
SEE SCANNED COPY FOR CONFIRMED REPORT MTDD
--- NOTE | 2024-03-15 14:35 | ED.AMS ---
HPI - Altered Mental Status General Chief Complaint: Altered Mental Status <Jag Welch PA-C - Last Filed: 03/15/24 14:42> Stated Complaint: fever, possible UTI <Jag Welch PA-C - Last Filed: 03/15/24 14:42> Time Seen by Provider: 03/15/24 14:33 <Jag Welch PA-C - Last Filed: 03/15/24 14:42> Focused HPI: This is a 69-year-old male who presents to the ED with daughter from assisted living for chief complaint of altered mental status. Daughter notes that the staff there told her that patient had a fever today. Daughter states that he has recently been worked up by PCP and was supposed to start antibiotics for UTI but has got the prescription yet. She is concerned that he may be altered due to UTI. Reports that he has been more ?spacey and not responding appropriately, with last known well being yesterday evening. She reports that facility/PCP been doing dementia mental status exam is but he has not yet received a formal diagnosis of dementia. Patient denies chest pain, shortness of breath, cough, abdominal pain, nausea, vomiting, diarrhea. He is unsure why he is here. GENERAL: Well-appearing, well-nourished, and in no acute distress. HEAD: Normocephalic, atraumatic. CHEST: Clear to auscultation. No respiratory distress. HEART: Regular rate and rhythm. NEURO: Alert and oriented x2. Oriented to name and place. Not oriented to situation or time. Obviously frustrated by orientation questions. 5/5 strength and sensation in the upper and lower extremities. No facial droop. No dysarthria Patient screened in triage and initial orders placed. Additional care and disposition to be based upon diagnostic testing and treatment. <Jag Welch PA-C - Last Filed: 03/15/24 14:42> Source: patient and family (daughter) <Lizette Ahumada MD - Last Filed: 03/15/24 19:53> Limitations: altered mental status <Lizette Ahumada MD - Last Filed: 03/15/24 19:53> History of Present Illness HPI narrative: Agree with HPI as above. with the following additions: Patient is alert and responsive though does appear periodically confused. Daughter provides collateral information/history. Patient has been residing in an assisted living facility for past few months. They helped empty his urinary catheter bag this morning. She assisted with emptying it later when she arrived and then it filled again. She states normally he can empty his own does not have difficulty with this. She does state that he has a history kidney failure at one point. Patient had pneumonia in November and again between November 2023 and now. He does continue to have an appetite. Patient was to see [place] physician shampoo assistant with Urology an appointment scheduled tomorrow. Patient denies any pain including no chest pain or abdominal pain. He denies any shortness of breath. He is frustrated as he states he keeps being told he has UTIs and pneumonia. He was hoping to get the indwelling Bosch removed tomorrow. <Lizette Ahumada MD - Last Filed: 03/15/24 19:53> Related Data Home Medications: Home Medications Medication Instructions Recorded Confirmed tamsulosin 0.4 mg capsule 0.4 mg PO BID 11/16/23 02/15/24 bethanechol chloride 5 mg tablet 5 mg PO TID 02/01/24 02/15/24 calcium carbonate 600 mg-vitamin 1 tablet PO DAILY 02/01/24 02/15/24 D3 10 mcg (400 unit) tablet metoprolol tartrate 50 mg tablet 50 mg PO BID 02/01/24 02/15/24 potassium chloride 20 mEq 20 meq PO DAILY 02/01/24 02/15/24 tablet,extended release(part/cryst) therapeutic multivitamin 1 tablet PO DAILY 02/01/24 02/15/24 (Thera-Tabs tablet) mirtazapine 15 mg tablet 15 mg PO DAILY 03/09/24 03/09/24 <Jag Welch PA-C - Last Filed: 03/15/24 14:42> Allergies/Adverse Reactions: Allergies Allergy/AdvReac Type Severity Reaction Status Date / Time No Known Allergies Allergy Mild Verified 03/15/24 14:03 <Jag Welch PA-C - Last Filed: 03/15
[2024-03-15 15:06] LABS: Basophils Absolute Auto 0.1 K/mm3 (0.0-0.1); Basophils Percent Auto 0.3 % (0.2-1.2); Eosinophils Absolute Auto 0.2 K/mm3 (0-0.3); Eosinophils Percent Auto 1.2 % (0-4.4); Hematocrit 36.3 % (42.0-52.0); Hemoglobin 11.8 g/dL (14.0-18.0); Immature Granulocyte Absolute 0.12 K/mm3 (0.00-0.031); Immature Granulocyte Percent A 0.7 % (0-0.5); Lymphocytes Absolute Auto 2.05 K/mm3 (0.9-3.2); Lymphocytes Percent Auto 11.5 % (18.3-44.2); Mean Corpuscular HGB Conc 32.5 g/dl (32-36); Mean Corpuscular Hemoglobin 29.4 pg (26-34); Mean Corpuscular Volume 90.3 fl (80-100); Mean Platelet Volume 9.1 fl (7.4-10.4); Monocytes Absolute Auto 1.2 K/mm3 (0.1-0.6); Monocytes Percent Auto 6.8 % (2.6-8.5); Neutrophils Absolute Auto 14.1 K/mm3 (1.3-6.7); Neutrophils Percent Auto 79.5 % (45.5-73.1); Platelet Count Result 287 k/mm3 (150-375); Red Blood Count 4.02 M/mm3 (4.6-6.20); Red Cell Distribution Width 14.6 % (11.5-14.5); White Blood Count 17.8 K/mm3 (4.5-10.0)
[2024-03-15 15:13] LABS: Alanine Aminotransferase 46 U/L (6-50); Albumin Level 3.7 g/dL (3.5-5.1); Alkaline Phosphatase 128 U/L (38-126); Anion Gap 4 mmol/L (4-12); Aspartate Amino Transferase 44 U/L (17-59); Bilirubin,Total 0.9 mg/dL (0.2-1.3); Blood Urea Nitrogen 24 mg/dL (9-20); Calcium 8.8 mg/dL (8.4-10.2); Carbon Dioxide 23 mmol/L (22-30); Chloride 109 mmol/L (98-107); Estimated CRCL calculation 47 ml/min; Estimated Glomerular Filt Rate 55; Glucose 116 mg/dL (65-110); Potassium 3.8 mmol/L (3.4-5.0); Sodium 136 mmol/L (137-145)
[2024-03-15 15:15] LABS: Lactic Acid Reflex 1.5 mmol/L (0.7-2.0)
[2024-03-15 15:16] LABS: Prothrombin Time 13.9 Seconds (11.1-14.7)
[2024-03-15 15:17] LABS: Partial Thromboplastin Time 29.9 Seconds (22.3-36.8)
[2024-03-15 15:23] LABS: Appearance Urine Cloudy (Clear); Bilirubin Urine Negative (Negative); Blood Urine Negative (Negative); Color Urine Yellow (Yellow); Glucose Urine UA Negative (Negative); Ketones Urine Negative (Negative); Leukocyte Esterase Ur 2+ LEU/UL (Negative); Nitrate Urine Negative (Negative); Protein Urine Trace mg/dL (Negative); Specific Grav Ur 1.011 (1.001-1.035); Urobilinogen Urine 0.2 mg/dL (<2.0)
[2024-03-15 15:28] LABS: Add Urine Microscopic? YES
[2024-03-15 15:48] LABS: Bacteria Urine 4+ /hpf; Non Pathogenic Casts 0-2; Squamous Epithelial Cell Urine None Seen /hpf (Few); WBC Urine 21-50 /hpf (0-3)
[2024-03-15 17:09] LABS: Need Manual Microscopic Reviewed
[2024-03-15] MEDS: SODIUM CHLORIDE 0.9% IV 1,000 ML 999 ML IV CONT (17:33)
[2024-03-15 17:44] LABS: Base Excess ABG -0.8 mEq/l (+/-2.0); Fractional Inspired Oxygen 21 %; Oxygen Content ABG 15.3 %vol (16.0-22.0); Oxyhemoglobin 91.9 % THb (90.0-100.0); PCO2 ABG 30.7 mmHg (35.0-45.0); PO2 FiO2 Ratio Arterial Blood 3.05 %; Total Hemoglobin 11.8 g/dL (12.0-18.0); pH ABG 7.473 (7.350-7.450)
[2024-03-15 17:45] LABS: Site Drawn RIGHT BRACHIAL
[2024-03-15] MEDS: AZITHROMYCIN 250 MG TABLET 500 MG PO (19:14)
--- NOTE | 2024-03-15 20:12 | ADMGEN ---
This patient, Yvan Chau, was admitted to Medical Room 259-. Patient/family oriented to hospital policies and general routines including ID bracelet, bed and alarms, visiting hours, pain management, procedures, bathroom and other care routines, personal items, smoking policy, room service/diet, and visiting hours. Information on how to activate the Rapid Response Team has been discussed. Patient/Family are encouraged to report perceived risks to care and to ask questions if they do not understand what they are told or what they should do.
--- NOTE | 2024-03-15 20:12 | PC.NURSE ---
PT UNSURE OF MEDS AND PAST MEDICAL HISTORY. STATES CALL MY DAUGHTER. DAUGHTER SHELDON CALLED AND OBTAINED INFORMATION FROM HER
--- NOTE | 2024-03-15 20:44 | PM.IMHP ---
H&P: HPI History of Present Illness Date/Time: 03/15/24 23:50 Chief Complaint: Fever, AMS Narrative: 69 y/o M presents here with fever and deviation from normal mentation with PMH of AFib, CVA, HLD, HTN, indwelling Perdomo, neurogenic bladder, and DM. Patient presented here via personal vehicle from assisted living for further evaluation of deviation from normal mentation and fever. Patient has chronic indwelling Perdomo, per chart review has been present since at least 11/16/23 per review of ED visit. Patient unsure why the perdomo has been continually replaced and unsure when it was first placed but believes it was secondary to a UTI, does have history of neurogenic bladder. Patient developed the fever today and patient normally is independent with maintaining his Perdomo but forgot to empty the bag this morning. Family member returned in the evening and patient again forgot to empty it. Patient has scheduled follow-up with Urology tomorrow, 03/16. Reports cough that developed a few months ago, reports that it has not worsened recently. Currently denying subjective fever, chills, body aches, chest pain, palpitations, shortness of breath, or fatigue. Initial VS at presentation: 98.5? F, HR 81, RR 18, 130/84, and 99% on RA. ED workup showed: WBC 17.8, stable anemia, sodium 136, creatinine 1.3 and GFR 55 (previously 1.1 and GFR >60 on 02/04/2024), glucose 116, lactic acid 1.5, and UA consistent with UTI. Head CT showed mild nonspecific cerebral white matter disease and old infarcts in the bilateral basal ganglia. CXR showed airspace opacities in the mid and lower lung zones worsened since 02/01/2024 and a small left pleural effusion. Review of Systems Review of Systems: All systems reviewed & are unremarkable except as noted in HPI and below PMFSH Past Medical History Medical History Anxiety Arthritis Atrial fibrillation by electrocardiogram BPH loc w urin obs/LUTS CVA (cerebral vascular accident) no residual deficits Hyperlipidemia Hypertension Indwelling Perdomo catheter present Neurogenic bladder Non-insulin dependent diabetes mellitus Normocytic anemia Obstructive uropathy TIA (transient ischemic attack) Surgical History Surgical History History of appendectomy Family History Family History Father Cerebrovascular accident Social History Social History Social History: Has a daughter Smoking packs per day: 1 Smoking cigarettes per day: 20.0 Years smoked: 49 Smoking pack-years: 49.00 Smoking status: Current every day smoker Tobacco type: cigarettes Second hand tobacco smoke exposure: Yes Additional smoking assessment comments: Currently smoking only 1 cigarette/day while living in assisted living. Alcohol intake: former Drinks per week: 1 Alcohol use details: couple times a week (happy hour) Substance use: former Substance use type: marijuana and crack/cocaine Last use: MARIJUANA A COUPLE MONTHS AGO Do You Feel Safe in your Home?: Yes Lack of Transportation: No Lack of Food: Never True Current Housing: I Have Housing Concerned About Future Housing: No Difficulty Paying Gas/Electric Bills: No Difficulty Paying for Meds: No Currently Unemployed: No Education: High School Diploma/GED Difficulty w/ Childcare or Family Care: No Living arrangements: assisted living Spiritual care concerns: No Meds Home Medications and Allergies Home Medications Medication Instructions Recorded Confirmed Type tamsulosin 0.4 mg capsule 0.4 mg PO BID 11/16/23 03/15/24 History metoprolol tartrate 50 mg tablet 50 mg PO BID 02/01/24 03/15/24 History therapeutic multivitamin 1 tablet PO DAILY 02/01/24 03/15/24 History (Thera-Tabs tablet) mirtazapine 15 mg tablet 15
[2024-03-15] MEDS: LACTATED RINGERS 1,000 ML 100 ML IV CONT (21:09)
[2024-03-15] MEDS: CEFEPIME 2 GM/NS 50 ML 2 GM/50 ML BAG IVPB (21:45)
[2024-03-15] MEDS: TAMSULOSIN HCL 0.4 MG CAPSULE PO (21:46)
[2024-03-15] MEDS: MIRTAZAPINE 15 MG TABLET PO (21:46)
[2024-03-15] MEDS: METOPROLOL TARTRATE 50 MG TAB PO (21:46)
[2024-03-15 22:30] LABS: Glucose Point of Care 180 mg/dl (65-105)
[2024-03-15] MEDS: VANCOMYCIN 1,750 MG/NS 500 ML 1,750 MG/500 ML BAG 250 MG IVPB (22:30)
[2024-03-15 23:29] LABS: MRSA (PCR) NOT DETECTED (NOT DETECTE)
[2024-03-16] VITALS (8 sets, daily range): BP systolic 138–175; BP diastolic 66–89; PULSE 74–86; RESP 14–16; TEMP 36.6–36.8; O2SAT 98–100
[2024-03-16 05:13] LABS: Basophils Percent Auto 0.2 % (0.2-1.2); Eosinophils Absolute Auto 0.3 K/mm3 (0-0.3); Hematocrit 32.5 % (42.0-52.0); Hemoglobin 10.3 g/dL (14.0-18.0); Immature Granulocyte Absolute 0.08 K/mm3 (0.00-0.031); Immature Granulocyte Percent A 0.6 % (0-0.5); Lymphocytes Percent Auto 26.4 % (18.3-44.2); Mean Corpuscular HGB Conc 31.7 g/dl (32-36); Mean Corpuscular Hemoglobin 29.4 pg (26-34); Mean Corpuscular Volume 92.9 fl (80-100); Mean Platelet Volume 9.3 fl (7.4-10.4); Monocytes Percent Auto 7.6 % (2.6-8.5); Neutrophils Absolute Auto 8.4 K/mm3 (1.3-6.7); Neutrophils Percent Auto 63.2 % (45.5-73.1); Platelet Count Result 242 k/mm3 (150-375); Red Cell Distribution Width 14.8 % (11.5-14.5); White Blood Count 13.3 K/mm3 (4.5-10.0)
[2024-03-16 05:23] LABS: Hemoglobin A1C 5.8 % (<5.7)
[2024-03-16 05:26] LABS: Alanine Aminotransferase 34 U/L (6-50); Albumin Level 3.1 g/dL (3.5-5.1); Alkaline Phosphatase 95 U/L (38-126); Anion Gap 5 mmol/L (4-12); Aspartate Amino Transferase 31 U/L (17-59); Bilirubin,Total 0.7 mg/dL (0.2-1.3); Blood Urea Nitrogen 28 mg/dL (9-20); Calcium 8.5 mg/dL (8.4-10.2); Carbon Dioxide 23 mmol/L (22-30); Chloride 110 mmol/L (98-107); Estimated CRCL calculation 41 ml/min; Estimated Glomerular Filt Rate 46; Glucose 99 mg/dL (65-110); Potassium 3.7 mmol/L (3.4-5.0); Sodium 138 mmol/L (137-145)
[2024-03-16 08:05] LABS: Glucose Point of Care 95 mg/dl (65-105)
[2024-03-16] MEDS: TAMSULOSIN HCL 0.4 MG CAPSULE PO ×2 (08:48→21:05)
[2024-03-16] MEDS: MULTIVITAMINS THERAPEUTIC TAB (*BKC) 1 TABLET PO (08:48)
[2024-03-16] MEDS: METOPROLOL TARTRATE 50 MG TAB PO ×2 (08:48→21:05)
[2024-03-16] MEDS: FINASTERIDE 5 MG TABLET PO (08:50)
--- NOTE | 2024-03-16 10:25 | WPDURCON ---
Assessment and Plan Assessment and plan (1) Urinary retention: Code(s): R33.9 - Retention of urine, unspecified Status: Acute Assessment and Plan: Ongoing issue being managed as an outpatient. Plan was for voiding trial in the office today but this was unfortunately cancelled due to his admission. Continue his regimen of tamsulosin, finasteride, and bethanechol Will hold off on repeat voiding trial in setting of suspected UTI. Okay to proceed with void trial after appropriate treatment of possible UTI Not due for catheter exchange until 03/25/24 and anticipate void trial will be completed prior to this (2) UTI (urinary tract infection): Qualifiers: Encounter type: initial encounter Indwelling urinary catheter type: indwelling urethral catheter Urinary tract infection type: catheter-associated UTI Qualified Code(s): T83.511A - Infection and inflammatory reaction due to indwelling urethral catheter, initial encounter; N39.0 - Urinary tract infection, site not specified Code(s): N39.0 - Urinary tract infection, site not specified Status: Suspected Assessment and Plan: UA abnormal, concerning for UTI Continue empiric antibiotics while awaiting urine culture; tailor to culture Urology Consult Note HPI Date Seen: 03/16/24 Requesting Physician: Gary Dooley MD Primary Care Provider: Ronnell Zhang MD Consult Narrative Narrative: Yvan Chau is a 69 year old male with a history of BPH and urinary retention who is currently admitted for altered mental status, UTI, and pneumonia. He is being seen in consultation for urinary retention with indwelling perdomo catheter. He recently had urodynamiccs 11/2023 which showed likely atonic bladder. He was started on finasteride and bethanechol in addition to his [facility] tamsulosin with plans for void trial after initiating this medication. Void trial was not completed as an outpatient due to a delay in starting medications and some follow up issues, and he was actually scheduled to have this void trial completed in the office today. Unfortunately he is now hospitalized with a suspected UTI. On arrival, his vital signs were stable and he was afebrile, WBC elevated at 17.8, creatinine 1.3, and UA with leukocytes and WBC. Urine culture is pending. At the time of my evaluation, he is resting comfortably. He reports no issues with his perdomo catheter which is draining clear yellow urine. His catheter was last changed at his nursing facility on 02/24/24. Review of Systems Review of Systems: All systems reviewed & are unremarkable except as noted in HPI and below PMFSH Past Medical History Medical History Anxiety Arthritis Atrial fibrillation by electrocardiogram BPH loc w urin obs/LUTS CVA (cerebral vascular accident) no residual deficits Hyperlipidemia Hypertension Indwelling Perdomo catheter present Neurogenic bladder Non-insulin dependent diabetes mellitus Normocytic anemia Obstructive uropathy TIA (transient ischemic attack) Surgical History Surgical History History of appendectomy Family History Family History Father Cerebrovascular accident Social History Social History Social History: Has a daughter Smoking packs per day: 1 Smoking cigarettes per day: 20.0 Years smoked: 49 Smoking pack-years: 49.00 Smoking status: Current every day smoker Tobacco type: cigarettes Second hand tobacco smoke exposure: Yes Additional smoking assessment comments: Currently smoking only 1 cigarette/day while living in assisted living. Alcohol intake: former Drinks per week: 1 Alcohol use details: couple times a week (happy hour) Substance use: former Substance use type: marijuana and crack/cocaine [place]
[2024-03-16] MEDS: AZITHROMYCIN 250 MG TABLET 500 MG PO (10:45)
[2024-03-16] MEDS: AMOXICILLIN/CLAVULANATE K 875-125 MG TAB 1 TABLET PO ×2 (10:45→21:05)
[2024-03-16] MEDS: LACTATED RINGERS 1,000 ML 100 ML IV CONT ×2 (10:45→21:04)
--- NOTE | 2024-03-16 13:11 | PM.IMPN ---
Progress Note: A&P Assessment and Plan (1) Altered mental status: Code(s): R41.82 - Altered mental status, unspecified Status: Acute Assessment and Plan: - CT head 1. 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 2. Mild nonspecific cerebral white matter disease, which likely represents chronic small vessel ischemic disease. - currently A/Ox3-4, some situational confusion/difficulty recalling recent history. does have workup for dementia in process at facility - suspect mild alteration secondary to UTI - neurochecks QShift (2) UTI (urinary tract infection): Qualifiers: Encounter type: initial encounter Indwelling urinary catheter type: indwelling urethral catheter Urinary tract infection type: catheter-associated UTI Qualified Code(s): T83.511A - Infection and inflammatory reaction due to indwelling urethral catheter, initial encounter; N39.0 - Urinary tract infection, site not specified Code(s): N39.0 - Urinary tract infection, site not specified Status: Suspected Assessment and Plan: - UA: cloudy, 2+ leuks, 3-5 RBC, 21-50 WBC, no epithelial cells, 4+ bacteria - UC pending, obtained on 03/15 - previous micro reviewed 01/2024: mixed genital georgina no other cultures on file - changed cefepime and vanco to azithro and augmentin (3) Pneumonia: Code(s): J18.9 - Pneumonia, unspecified organism Status: Acute Assessment and Plan: - CXR: 1. Airspace opacities in the mid and lower lung zones, worsened from 02/01/2024, consistent with pneumonia. 2. Small left pleural effusion. - risk factors: recent PNA and abx use - complicating factors: none - started on HAP tx: cefepime and vancomycin - MRSA PCR negative - sputum culture still awaiting to be collected - no supplemental O2 requirement (4) Diabetes: Qualifiers: Diabetes mellitus complication status: without complication Diabetes mellitus group home insulin use: without terminal supervisor use Diabetes mellitus type: type 2 Qualified Code(s): E11.9 - Type 2 diabetes mellitus without complications Code(s): E11.9 - Type 2 diabetes mellitus without complications Status: Acute Assessment and Plan: - hypoglycemia protocol - POC blood glucose Q12H and PRN - no home medication, diet controlled - A1C 5.8 Time Spent With Patient Time: 42 minutes. Subjective Date/time seen: 03/16/24 13:11 Interval history: 03/16/2024 0945 Patient is laying in bed. He denies any current chest pain, shortness of breath, nausea, vomiting, diarrhea, constipation, weakness or fatigue. When I asked him about the catheter, he stated that he forgets, when he goes to sleep. He then got a bit frazzled and stated that he just wanted to get some sleep and everyone keep waking him up. He denies any current urinary symptoms. 03/15/24? 23:50 69 y/o M presents here with fever and deviation from normal mentation with PMH of? AFib, CVA, HLD, HTN, indwelling Perdomo, neurogenic bladder, and DM. Patient presented here via personal vehicle from assisted living for further evaluation of deviation from normal mentation and fever.? Patient has chronic indwelling Perdomo, per chart review has been present since at least 11/16/23 per review of ED visit. Patient unsure why the perdomo has been continually replaced and unsure when it was first placed but believes it was secondary to a UTI, does have history of neurogenic bladder. Patient developed the fever today and patient normally is independent with maintaining his Perdomo but forgot to empty the bag this morning. Family member returned in the evening and patient again forgot to empty it. Patient has scheduled follow-up with Urology tomorrow, 03/16. Reports cough that developed a few months ago, reports that it has not worsened recently. Currently denying subjective fever, chills, body aches, chest pain, palpitations, shortness of breath, or fatigue. Initial VS at presentati
[2024-03-16] MEDS: BETHANECHOL CHLORIDE 5 MG TABLET PO ×2 (13:35→18:18)
[2024-03-16] MEDS: MIRTAZAPINE 15 MG TABLET PO (21:05)
[2024-03-16 22:16] LABS: Glucose Point of Care 126 mg/dl (65-105)
[2024-03-17 05:04] LABS: Basophils Percent Auto 0.4 % (0.2-1.2); Eosinophils Absolute Auto 0.4 K/mm3 (0-0.3); Eosinophils Percent Auto 3.5 % (0-4.4); Hematocrit 33.6 % (42.0-52.0); Hemoglobin 10.5 g/dL (14.0-18.0); Immature Granulocyte Absolute 0.07 K/mm3 (0.00-0.031); Immature Granulocyte Percent A 0.7 % (0-0.5); Lymphocytes Absolute Auto 2.63 K/mm3 (0.9-3.2); Lymphocytes Percent Auto 25.2 % (18.3-44.2); Mean Corpuscular HGB Conc 31.3 g/dl (32-36); Mean Corpuscular Hemoglobin 29.3 pg (26-34); Mean Corpuscular Volume 93.9 fl (80-100); Mean Platelet Volume 9.3 fl (7.4-10.4); Monocytes Absolute Auto 1.1 K/mm3 (0.1-0.6); Monocytes Percent Auto 10.7 % (2.6-8.5); Neutrophils Absolute Auto 6.2 K/mm3 (1.3-6.7); Neutrophils Percent Auto 59.5 % (45.5-73.1); Platelet Count Result 214 k/mm3 (150-375); Red Blood Count 3.58 M/mm3 (4.6-6.20); Red Cell Distribution Width 14.6 % (11.5-14.5); White Blood Count 10.4 K/mm3 (4.5-10.0)
[2024-03-17 05:15] LABS: Alanine Aminotransferase 32 U/L (6-50); Albumin Level 3.3 g/dL (3.5-5.1); Alkaline Phosphatase 100 U/L (38-126); Anion Gap 7 mmol/L (4-12); Aspartate Amino Transferase 33 U/L (17-59); Bilirubin,Total 0.8 mg/dL (0.2-1.3); Blood Urea Nitrogen 28 mg/dL (9-20); Calcium 8.8 mg/dL (8.4-10.2); Carbon Dioxide 21 mmol/L (22-30); Chloride 110 mmol/L (98-107); Estimated CRCL calculation 51 ml/min; Estimated Glomerular Filt Rate 60; Glucose 111 mg/dL (65-110); Magnesium 1.6 mg/dL (1.6-2.3); Potassium 3.6 mmol/L (3.4-5.0); Sodium 138 mmol/L (137-145)
[2024-03-17 06:45] VITALS: BP 122/60; PULSE 76; RESP 14; TEMP 36.6; O2SAT 95
[2024-03-17] MEDS: LACTATED RINGERS 1,000 ML 100 ML IV CONT (09:18)
[2024-03-17] MEDS: MULTIVITAMINS THERAPEUTIC TAB (*BKC) 1 TABLET PO (09:19)
[2024-03-17] MEDS: FINASTERIDE 5 MG TABLET PO (09:19)
[2024-03-17] MEDS: AMOXICILLIN/CLAVULANATE K 875-125 MG TAB 1 TABLET PO ×2 (09:19→20:28)
[2024-03-17 09:20] VITALS: PULSE 76
[2024-03-17] MEDS: TAMSULOSIN HCL 0.4 MG CAPSULE PO ×2 (09:20→20:29)
[2024-03-17] MEDS: AZITHROMYCIN 250 MG TABLET 500 MG PO (09:20)
[2024-03-17] MEDS: BETHANECHOL CHLORIDE 5 MG TABLET PO ×3 (09:20→17:47)
[2024-03-17] MEDS: METOPROLOL TARTRATE 50 MG TAB PO ×2 (09:20→20:29)
--- NOTE | 2024-03-17 09:43 | P.PNIM_ITS ---
Progress Note: A&P Assessment and Plan (1) Altered mental status: Code(s): R41.82 - Altered mental status, unspecified Status: Acute Assessment and Plan: * Noted to be mildly confused on presentation * Likely secondary to UTI * Head CT demonstrated old infarcts in the bilateral basal ganglia with no acute findings * He is A&O x4 during my encounter today * TSH is within normal limits. Will check B12 and folate * Reportedly he is being evaluated for dementia by his primary care provider (2) UTI (urinary tract infection): Qualifiers: Encounter type: initial encounter Indwelling urinary catheter type: indwelling urethral catheter Urinary tract infection type: catheter-associated UTI Qualified Code(s): T83.511A - Infection and inflammatory reaction due to indwelling urethral catheter, initial encounter; N39.0 - Urinary tract in fection, site not specified Code(s): N39.0 - Urinary tract infection, site not specified Status: Suspected Assessment and Plan: * UA abnormal on presentation, unclear how this was obtained as patient has chronic indwelling Bosch * Aside from mental status change, no acute symptoms of UTI * Leukocytosis on presentation up to 17.8. Nearly resolved today, WBC 10.4 * Urine culture is pending at this time * Continue Augmentin while awaiting culture results (3) Pneumonia: Code(s): J18.9 - Pneumonia, unspecified organism Status: Acute Assessment and Plan: * CXR on presentation shows airspace opacities in the mid and lower lung zones, right greater than left * Continue p.o. 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 Subjective Date/time seen: 03/17/24 09:43 Interval history: Doing fair today. Complains of cough productive of thick, clear phlegm. Some mild shortness of breath but notes improvement in this. No chest pain or palpitations. Denies nausea, vomiting, fever, chills. Denies abdominal pain. Reports no issues with his Bosch catheter which is draining clear yellow urine. He is tolerating his diet. Denies dizziness, lightheadedness, or weakness. Review of Systems Review of Systems: All systems reviewed & are unremarkable except as noted in HPI and below Exam Narrative: General: Thin, well-appearing 69-year-old male, sitting up in bed, comfortable, NARD Neuro: awake, alert and oriented x4, speech clear, no focal neuro deficits noted HEENMT: normocephalic, atrau
--- NOTE | 2024-03-17 09:43 | PM.IMPN ---
Progress Note: A&P Assessment and Plan (1) Altered mental status: Code(s): R41.82 - Altered mental status, unspecified Status: Acute Assessment and Plan: Noted to be mildly confused on presentation Likely secondary to UTI Head CT demonstrated old infarcts in the bilateral basal ganglia with no acute findings He is A&O x4 during my encounter today TSH is within normal limits. Will check B12 and folate Reportedly he is being evaluated for dementia by his primary care provider (2) UTI (urinary tract infection): Qualifiers: Encounter type: initial encounter Indwelling urinary catheter type: indwelling urethral catheter Urinary tract infection type: catheter-associated UTI Qualified Code(s): T83.511A - Infection and inflammatory reaction due to indwelling urethral catheter, initial encounter; N39.0 - Urinary tract infection, site not specified Code(s): N39.0 - Urinary tract infection, site not specified Status: Suspected Assessment and Plan: UA abnormal on presentation, unclear how this was obtained as patient has chronic indwelling Bosch Aside from mental status change, no acute symptoms of UTI Leukocytosis on presentation up to 17.8. Nearly resolved today, WBC 10.4 Urine culture is pending at this time Continue Augmentin while awaiting culture results (3) Pneumonia: Code(s): J18.9 - Pneumonia, unspecified organism Status: Acute Assessment and Plan: CXR on presentation shows airspace opacities in the mid and lower lung zones, right greater than left Continue p.o. Augmentin and azithromycin Sputum culture is pending MRSA nares negative He has no supplemental oxygen requirement Continue supportive care with bronchodilators, expectorants, Cornet (4) Urinary retention: Code(s): R33.9 - Retention of urine, unspecified Status: Acute Assessment and Plan: Chronic ongoing issue being managed by Urology Continue Bosch catheter at this time Plan for void trial following appropriate treatment of suspected UTI Continue home finasteride, tamsulosin, bethanechol (5) Diabetes: Qualifiers: Diabetes mellitus type: type 2 Diabetes mellitus terminal gauger supervisor insulin use: without terminal gauger supervisor use Diabetes mellitus complication status: without complication Qualified Code(s): E11.9 - Type 2 diabetes mellitus without complications Code(s): E11.9 - Type 2 diabetes mellitus without complications Status: Acute Assessment and Plan: A1c is 5.8 Blood sugars have been well controlled during admission Continue Accu-Cheks and hypoglycemic protocol He is diet controlled and not on any insulin or hypoglycemic agents. Subjective Date/time seen: 03/17/24 09:43 Interval history: Doing fair today. Complains of cough productive of thick, clear phlegm. Some mild shortness of breath but notes improvement in this. No chest pain or palpitations. Denies nausea, vomiting, fever, chills. Denies abdominal pain. Reports no issues with his Bosch catheter which is draining clear yellow urine. He is tolerating his diet. Denies dizziness, lightheadedness, or weakness. Review of Systems Review of Systems: All systems reviewed & are unremarkable except as noted in HPI and below Exam Narrative: General: Thin, well-appearing 69-year-old male, sitting up in bed, comfortable, NARD Neuro: awake, alert and oriented x4, speech clear, no focal neuro deficits noted HEENMT: normocephalic, atraumatic, EOMI, sclerae anicteric Respiratory: Scattered rhonchi, no wheezes, nonlabored breathing Cardio: regular rate, regular rhythm with S1-S2 Abdomen: nondistended, normoactive bowel sounds, soft, nontender to palpation : Bosch catheter draining clear yellow urine Extremities: no edema, erythema, or tenderness to palpation Skin: no rashes or lesions, warm and dry Psych: appropriate mood and affect, judgment and insight intact
[2024-03-17 10:05] LABS: Glucose Point of Care 185 mg/dl (65-105)
[2024-03-17] MEDS: guaiFENesin 12 HR 600 MG TABCR PO ×2 (13:39→20:29)
[2024-03-17 14:00] VITALS: BP 127/62; PULSE 60; RESP 18; TEMP 36.8; O2SAT 95
[2024-03-17 19:53] VITALS: BP 143/83; PULSE 70; RESP 16; TEMP 36.6; O2SAT 98
[2024-03-17 20:22] LABS: Glucose Point of Care 114 mg/dl (65-105)
[2024-03-17 20:29] VITALS: PULSE 78
[2024-03-17] MEDS: MIRTAZAPINE 15 MG TABLET PO (20:29)
[2024-03-18 05:05] LABS: Glucose Point of Care 118 mg/dl (65-105)
[2024-03-18 05:45] LABS: Hematocrit 33.2 % (42.0-52.0); Hemoglobin 10.6 g/dL (14.0-18.0); Mean Corpuscular HGB Conc 31.9 g/dl (32-36); Mean Corpuscular Hemoglobin 29.4 pg (26-34); Mean Corpuscular Volume 92.2 fl (80-100); Mean Platelet Volume 9.1 fl (7.4-10.4); Platelet Count Result 215 k/mm3 (150-375); Red Cell Distribution Width 14.3 % (11.5-14.5); White Blood Count 9.7 K/mm3 (4.5-10.0)
[2024-03-18 06:01] LABS: Anion Gap 7 mmol/L (4-12); Blood Urea Nitrogen 26 mg/dL (9-20); Calcium 8.7 mg/dL (8.4-10.2); Carbon Dioxide 21 mmol/L (22-30); Chloride 109 mmol/L (98-107); Estimated CRCL calculation 56 ml/min; Estimated Glomerular Filt Rate > 60; Glucose 123 mg/dL (65-110); Potassium 3.6 mmol/L (3.4-5.0); Sodium 137 mmol/L (137-145)
[2024-03-18 06:33] VITALS: BP 154/83; PULSE 73; RESP 18; TEMP 36.8; O2SAT 94
[2024-03-18 07:17] LABS: Folic Acid > 20.0 ng/mL (2.76->20)
[2024-03-18] MEDS: FINASTERIDE 5 MG TABLET PO (07:54)
[2024-03-18] MEDS: AZITHROMYCIN 250 MG TABLET 500 MG PO (07:54)
[2024-03-18] MEDS: AMOXICILLIN/CLAVULANATE K 875-125 MG TAB 1 TABLET PO ×2 (07:54→20:41)
[2024-03-18 07:55] VITALS: PULSE 88
[2024-03-18] MEDS: MULTIVITAMINS THERAPEUTIC TAB (*BKC) 1 TABLET PO (07:55)
[2024-03-18] MEDS: BETHANECHOL CHLORIDE 5 MG TABLET PO ×3 (07:55→16:46)
[2024-03-18] MEDS: TAMSULOSIN HCL 0.4 MG CAPSULE PO ×2 (07:55→20:41)
[2024-03-18] MEDS: METOPROLOL TARTRATE 50 MG TAB PO ×2 (07:55→20:41)
[2024-03-18] MEDS: guaiFENesin 12 HR 600 MG TABCR PO ×2 (07:55→20:41)
[2024-03-18 08:00] VITALS: O2SAT 94
--- NOTE | 2024-03-18 10:27 | PCSTNOTE ---
Bedside swallowing evaluation completed. Cursory oral peripheral examination results reveal no teeth, patient states that he doesn't usually wear them. Patient seen bedside with head of bed elevated to achieve upright positioning (approximately 90 degrees at hip). Trials of thin liquid by straw resulted in coughing (soft sign of aspiration). No coughing observed with mildly thickened liquids. Trials of solids (eggs and sausage) resulted in excessive coughing. Recommendations: minced moist diet textures, mildly thickened liquids. Swallowing precautions placed in chart. Modified barium swallow study recommended to further evaluate for aspiration. Thank you for the referral of this patient.
[2024-03-18 11:56] LABS: Glucose Point of Care 134 mg/dl (65-105)
[2024-03-18 14:00] VITALS: BP 127/57; PULSE 66; RESP 18; TEMP 36.8; O2SAT 97
--- NOTE | 2024-03-18 14:33 | P.PNIM_ITS ---
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 * B12 and folate: 475 and greater than 20 respectively * Reportedly he is being evaluated for dementia by his primary care provider (2) UTI (urinary tract infection): Qualifiers: Encounter type: initial encounter Indwelling urinary catheter type: indwelling urethral catheter Urinary tract infection type: catheter-associated UTI Qualified Code(s): T83.511A - Infection and inflammatory reaction due to indwelling urethral catheter, initial encounter; N39.0 - Urinary tract infection, site not specified Code(s): N39.0 - Urinary tract infection, site not specified Status: Suspected Assessment and Plan: * UA abnormal on presentation, unclear how this was obtained as patient has chronic indwelling Bosch * Aside from mental status change, no acute symptoms of UTI * Leukocytosis resolved * Urine culture showing Enterococcus species * Continue Augmentin while awaiting culture results (3) Pneumonia: Code(s): J18.9 - Pneumonia, unspecified organism Status: Acute Assessment and Plan: * CXR on presentation shows airspace opacities in the mid and lower lung zones, right greater than left * Continue p.o. Augmentin and azithromycin * Sputum culture positive for yeast; patient's oropharynx examined today and no signs of candidiasis * MRSA nares negative * He has no supplemental oxygen requirement * Continue supportive care with bronchodilators, expectorants, Cornet * Repeat chest x-ray on 03/18 showed considerable interval improvement of bilateral pulmonary infiltrates and diminished prominence of the minor fissure since 03/15/2024. This suggests improvement of congestive heart failure and pulmonary edema. Minimal residual infiltrates and small pleural effusions remain. (4) Urinary retention: Code(s): R33.9 - Retention of urine, unspecified Status: Acute Assessment and Plan: * Chronic ongoing issue being managed by Urology * Continue Bosch catheter at this time * Plan for void trial following appropriate treatment of suspected UTI * Continue home finasteride, tamsulosin, bethanechol (5) Diabetes: Qualifiers: Diabetes mellitus type: type 2 Diabetes mellitus ocean transportation intermediary insulin use: without longterm use Diabetes mellitus complication status: without complication Qualified Code(s): E11.9 - Type 2 diabetes mellitus without complications Code(s): E11.9 - Type 2 diabetes mellitus without complications Status: Chronic Assessment and Plan: * A1c is 5.8 * Blood sugars have been well controlled during admission * Continue Accu-Cheks and hypoglycemic protocol * He is diet controlled and not on any insulin or hypoglycemic agents. Subjective Date/time seen: 03/18/24 14:33 Interval history: Patient sitting up in chair this morning in no acute distress. He denies any chest pain or SOB, no overnight events. He did report coughing on his eggs with breakfast. Speech eval ordered and recommends barium swallow to be done tomorrow. Repeat CXR done to ensure no aspiration. Review of Systems Review of Systems: All systems reviewed & are unremarkable except as noted in HPI and below Exam
--- NOTE | 2024-03-18 14:33 | PM.IMPN ---
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 B12 and folate: 475 and greater than 20 respectively Reportedly he is being evaluated for dementia by his primary care provider (2) UTI (urinary tract infection): Qualifiers: Encounter type: initial encounter Indwelling urinary catheter type: indwelling urethral catheter Urinary tract infection type: catheter-associated UTI Qualified Code(s): T83.511A - Infection and inflammatory reaction due to indwelling urethral catheter, initial encounter; N39.0 - Urinary tract infection, site not specified Code(s): N39.0 - Urinary tract infection, site not specified Status: Suspected Assessment and Plan: UA abnormal on presentation, unclear how this was obtained as patient has chronic indwelling Bosch Aside from mental status change, no acute symptoms of UTI Leukocytosis resolved Urine culture showing Enterococcus species Continue Augmentin while awaiting culture results (3) Pneumonia: Code(s): J18.9 - Pneumonia, unspecified organism Status: Acute Assessment and Plan: CXR on presentation shows airspace opacities in the mid and lower lung zones, right greater than left Continue p.o. Augmentin and azithromycin Sputum culture positive for yeast; patient's oropharynx examined today and no signs of candidiasis MRSA nares negative He has no supplemental oxygen requirement Continue supportive care with bronchodilators, expectorants, Cornet Repeat chest x-ray on 03/18 showed considerable interval improvement of bilateral pulmonary infiltrates and diminished prominence of the minor fissure since 03/15/2024. This suggests improvement of congestive heart failure and pulmonary edema. Minimal residual infiltrates and small pleural effusions remain. (4) Urinary retention: Code(s): R33.9 - Retention of urine, unspecified Status: Acute Assessment and Plan: Chronic ongoing issue being managed by Urology Continue Bosch catheter at this time Plan for void trial following appropriate treatment of suspected UTI Continue home finasteride, tamsulosin, bethanechol (5) Diabetes: Qualifiers: Diabetes mellitus type: type 2 Diabetes mellitus retirement insulin use: without supervisor home energy consultant use Diabetes mellitus complication status: without complication Qualified Code(s): E11.9 - Type 2 diabetes mellitus without complications Code(s): E11.9 - Type 2 diabetes mellitus without complications Status: Chronic Assessment and Plan: A1c is 5.8 Blood sugars have been well controlled during admission Continue Accu-Cheks and hypoglycemic protocol He is diet controlled and not on any insulin or hypoglycemic agents. Subjective Date/time seen: 03/18/24 14:33 Interval history: Patient sitting up in chair this morning in no acute distress. He denies any chest pain or SOB, no overnight events. He did report coughing on his eggs with breakfast. Speech eval ordered and recommends barium swallow to be done tomorrow. Repeat CXR done to ensure no aspiration. Review of Systems Review of Systems: All systems reviewed & are unremarkable except as noted in HPI and below Exam Narrative: General: Thin, well-appearing male, sitting up in chair in no distress HEENMT: normocephalic, atraumatic, EOMI, PERRLA Respiratory: Lung sounds clear, no wheezes Cardio: RRR with S1-S2 Abdomen: Soft, nondistended, nontender, BS present : Bosch catheter draining clear yellow urine Extremities: no edema Skin: no rashes or lesions, warm and dry Neuro: awake, alert and oriented x4, no neuro deficits Psych:
[2024-03-18 20:41] VITALS: PULSE 72
[2024-03-18] MEDS: MIRTAZAPINE 15 MG TABLET PO (20:41)
[2024-03-18 20:42] VITALS: BP 143/62; PULSE 72; RESP 16; TEMP 36.8; O2SAT 97
[2024-03-18 21:03] LABS: Glucose Point of Care 126 mg/dl (65-105)
[2024-03-19] VITALS (8 sets, daily range): BP systolic 121–184; BP diastolic 65–87; PULSE 67–98; RESP 14–20; TEMP 36.5–37.6; O2SAT 92–97
[2024-03-19 06:00] LABS: Basophils Absolute Auto 0.1 K/mm3 (0.0-0.1); Basophils Percent Auto 0.5 % (0.2-1.2); Eosinophils Absolute Auto 0.4 K/mm3 (0-0.3); Eosinophils Percent Auto 3.9 % (0-4.4); Hemoglobin 10.3 g/dL (14.0-18.0); Immature Granulocyte Absolute 0.14 K/mm3 (0.00-0.031); Immature Granulocyte Percent A 1.5 % (0-0.5); Lymphocytes Absolute Auto 2.21 K/mm3 (0.9-3.2); Lymphocytes Percent Auto 23.5 % (18.3-44.2); Mean Corpuscular HGB Conc 32.2 g/dl (32-36); Mean Corpuscular Hemoglobin 29.4 pg (26-34); Mean Corpuscular Volume 91.4 fl (80-100); Mean Platelet Volume 9.2 fl (7.4-10.4); Monocytes Absolute Auto 1.3 K/mm3 (0.1-0.6); Monocytes Percent Auto 13.7 % (2.6-8.5); Neutrophils Absolute Auto 5.3 K/mm3 (1.3-6.7); Neutrophils Percent Auto 56.9 % (45.5-73.1); Platelet Count Result 220 k/mm3 (150-375); Red Cell Distribution Width 14.5 % (11.5-14.5); White Blood Count 9.4 K/mm3 (4.5-10.0)
[2024-03-19 06:12] LABS: Anion Gap 8 mmol/L (4-12); Blood Urea Nitrogen 30 mg/dL (9-20); Calcium 8.8 mg/dL (8.4-10.2); Carbon Dioxide 23 mmol/L (22-30); Chloride 107 mmol/L (98-107); Estimated CRCL calculation 51 ml/min; Estimated Glomerular Filt Rate 60; Glucose 110 mg/dL (65-110); Potassium 3.7 mmol/L (3.4-5.0); Sodium 138 mmol/L (137-145)
[2024-03-19 08:21] LABS: Glucose Point of Care 104 mg/dl (65-105)
[2024-03-19] MEDS: AMOXICILLIN/CLAVULANATE K 875-125 MG TAB 1 TABLET PO ×2 (08:46→20:38)
[2024-03-19] MEDS: AZITHROMYCIN 250 MG TABLET 500 MG PO (08:46)
[2024-03-19] MEDS: MULTIVITAMINS THERAPEUTIC TAB (*BKC) 1 TABLET PO (08:46)
[2024-03-19] MEDS: METOPROLOL TARTRATE 50 MG TAB PO ×2 (08:46→20:39)
[2024-03-19] MEDS: guaiFENesin 12 HR 600 MG TABCR PO ×2 (08:46→20:38)
[2024-03-19] MEDS: FINASTERIDE 5 MG TABLET PO (08:46)
[2024-03-19] MEDS: TAMSULOSIN HCL 0.4 MG CAPSULE PO ×2 (08:46→20:38)
[2024-03-19] MEDS: BETHANECHOL CHLORIDE 5 MG TABLET PO ×3 (08:46→17:00)
--- NOTE | 2024-03-19 09:44 | WPDUROPN2 ---
Progress Note: A&P Assessment and Plan (1) Urinary retention: Code(s): R33.9 - Retention of urine, unspecified Status: Acute Assessment and Plan: Ongoing issue being managed as an outpatient. Plan was for voiding trial in the office on 03/16/24 but this was unfortunately cancelled due to his admission. Continue his regimen of tamsulosin, finasteride, and bethanechol Plan for void trial after completion of appropriate antibiotics for UTI; await sensitivity report. This can be performed at his nursing facility (2) UTI (urinary tract infection): Qualifiers: Encounter type: initial encounter Indwelling urinary catheter type: indwelling urethral catheter Urinary tract infection type: catheter-associated UTI Qualified Code(s): T83.511A - Infection and inflammatory reaction due to indwelling urethral catheter, initial encounter; N39.0 - Urinary tract infection, site not specified Code(s): N39.0 - Urinary tract infection, site not specified Status: Suspected Assessment and Plan: Urine culture with growth of enterococcus Continue antibiotics tailored to urine culture Okay for discharge pending final culture and sensitivities on appropriate PO antibiotics Subjective Subjective Date/Time Seen: 03/19/24 09:44 Interval history: Yvan is feeling well today. Offers no complaints. No issues with perdomo catheter which is draining clear yellow urine. Review of Systems Review of Systems: All systems reviewed & are unremarkable except as noted in HPI and below Exam Narrative: General:? Awake, alert, comfortable, no acute distress HEENT:? Normocephalic, atraumatic, sclerae anicteric Respiratory:? Normal respiratory effort, no accessory muscle use Abdomen:? Nondistended, soft, nontender : Perdomo catheter draining clear yellow urine Skin:? Normal coloration, warm and dry Neurologic:? No focal neuro deficits noted Psychiatric:? Appropriate mood and affect, judgment and insight intact Objective Data Vital Signs Vital Signs: Vital Signs - 24 hr 03/18/24 14:00 03/18/24 20:41 03/18/24 20:42 Temperature 98.2 F 98.3 F Pulse Rate 66 72 72 Respiratory Rate 18 16 Blood Pressure 127/57 L 143/62 H Pulse Oximetry 97 97 Oxygen Delivery 03/18/24 20:00 03/19/24 05:47 03/19/24 08:46 Temperature 98.6 F Pulse Rate 73 73 Respiratory Rate 14 Blood Pressure 140/79 Pulse Oximetry 97 Oxygen Delivery Room Air Intake/Output Intake/Output: Intake & Output 03/16/24 03/17/24 03/18/24 03/19/24 23:59 23:59 23:59 23:59 Intake Total 3810 2430 1610 290 Output Total 2400 3400 1750 850 Balance 5550 -970 -140 -560 Meds/Results Medications: Active Medications Generic Name Dose Route Start Last Admin Trade Name Freq PRN Reason Stop Dose Admin Acetaminophen 650 mg 03/15/24 18:20 Acetaminophen 325 Mg Tablet PO Q4H PRN Mild Pain (1-3) or Fever Albuterol 2 puff 03/17/24 06:35 Albuterol Sulfate (*Sp) Aerosol 1 Puff INHALATION Q6HRT PRN Shortness Of Breath Amoxicillin/Clavulanate Potassium 1 tablet 03/16/24 09:00 03/19/24 08:46 Amoxicillin/Clavulanate K 875-125 Mg Tab PO 1 tablet Q12HR BASSEM Administration Azithromycin 500 mg 03/16/24 09:00 03/19/24 08:46 Azithromycin 250 Mg Tablet PO 500 mg DAILY BASSEM Administration Bethanechol Chloride 5 mg 03/16/24 13:00 03/19/24 08:46 Bethanechol Chloride 5 Mg Tablet PO 5 mg TID BASSEM Administration Dextrose 12.5 gm 03/15/24 18:20 Dextrose 50% 25 Gm/50 Ml Syringe IV PUSH PRN PRN Hypoglycemia Protocol Finasteride 5 mg 03/16/24 09:00 03/19/24 08:46 Finasteride 5 Mg Tablet PO 5 mg QAM BASSEM Administration Glucagon 1 mg 03/15/24 18:20 Glucagon For Inj 1 Mg Vial IM PRN PRN Hypoglycemia Protocol Glucose 15 gm 03/15/24 18:20 Glucose Oral Gel 15 Gm Of Glucse In 37.5 Gm Tube PO PRN PRN Hypoglycemia
--- NOTE | 2024-03-19 09:55 | PCSTNOTE ---
Modified Barium Swallow study listed as cancelled however it was completed 9:30 am Tuesday, 03/19. Hospitalist notified.
--- NOTE | 2024-03-19 10:10 | PCSTNOTE ---
Please refer to the Modified Barium Swallow Evaluation in the EMR.
--- NOTE | 2024-03-19 13:42 | PM.IMPN ---
Progress Note: A&P Assessment and Plan (1) Pneumonia: Code(s): J18.9 - Pneumonia, unspecified organism Status: Acute Assessment and Plan: CXR on presentation shows airspace opacities in the mid and lower lung zones, right greater than left Continue p.o. Augmentin and azithromycin Sputum culture positive for yeast; patient's oropharynx examined today and no signs of candidiasis MRSA nares negative He has no supplemental oxygen requirement Continue supportive care with bronchodilators, expectorants, Cornet Repeat chest x-ray on 03/18 showed considerable interval improvement of bilateral pulmonary infiltrates and diminished prominence of the minor fissure since 03/15/2024. This suggests improvement of congestive heart failure and pulmonary edema. Minimal residual infiltrates and small pleural effusions remain. (2) Urinary retention: Code(s): R33.9 - Retention of urine, unspecified Status: Acute Assessment and Plan: Chronic ongoing issue being managed by Urology Continue Bosch catheter at this time Plan for void trial following appropriate treatment of suspected UTI Continue home finasteride, tamsulosin, bethanechol UA culture pending, prelim showing Enterococcus species (3) Diabetes: Qualifiers: Diabetes mellitus type: type 2 Diabetes mellitus [facility] insulin use: without forging die finisher use Diabetes mellitus complication status: without complication Qualified Code(s): E11.9 - Type 2 diabetes mellitus without complications Code(s): E11.9 - Type 2 diabetes mellitus without complications Status: Chronic Assessment and Plan: A1c is 5.8 Blood sugars have been well controlled during admission Continue Accu-Cheks and hypoglycemic protocol He is diet controlled and not on any insulin or hypoglycemic agents. Subjective Date/time seen: 03/19/24 13:42 Interval history: Patient sitting up in chair this morning in no acute distress. He denies any chest pain or SOB, no overnight events. Speech evaluated today and will continue to follow. Urology cleared for d/c and outpatient follow up. He can d/c once urine culture finalizes. Review of Systems Review of Systems: All systems reviewed & are unremarkable except as noted in HPI and below Exam Narrative: General: Thin, well-appearing male in no distress HEENMT: normocephalic, atraumatic, EOMI, PERRLA Respiratory: Lung sounds clear, no wheezes Cardio: RRR with S1-S2 Abdomen: Soft, nondistended, nontender, BS present : Bosch catheter draining clear yellow urine Extremities: no edema Skin: no rashes or lesions, warm and dry Neuro: awake, alert and oriented x4, no neuro deficits Psych: appropriate mood and affect Objective Data Vital Signs Vital Signs: Vital Signs - 24 hr 03/18/24 14:00 03/18/24 20:41 03/18/24 20:42 Temperature 98.2 F 98.3 F Pulse Rate 66 72 72 Respiratory Rate 18 16 Blood Pressure 127/57 L 143/62 H Pulse Oximetry 97 97 Oxygen Delivery 03/18/24 20:00 03/19/24 05:47 03/19/24 08:46 Temperature 98.6 F Pulse Rate 73 73 Respiratory Rate 14 Blood Pressure 140/79 Pulse Oximetry 97 Oxygen Delivery Room Air 03/19/24 08:45 Temperature Pulse Rate Respiratory Rate Blood Pressure Pulse Oximetry Oxygen Delivery Room Air Intake/Output Intake/Output: Intake & Output 03/16/24 03/17/24 03/18/24 03/19/24 23:59 23:59 23:59 23:59 Intake Total 3810 2430 1610 290 Output Total 2400 3400 1750 850 Balance 1410 -970 -140 -560 Meds/Results Medications: Active Medications Generic Name Dose Route Start Last Admin Trade Name Freq PRN Reason Stop Dose Admin Acetaminophen 650 mg 03/15/24 18:20 Acetaminophen 325 Mg Tablet PO Q4H PRN Mild Pain (1-3) or Fever Albuterol 2 puff 03/17/24 06:35 Albuterol Sulfate (*Sp) Aerosol 1 Puff INHALATION Q6HRT PRN Shortness Of Breath Amoxicillin/Clavulanate Miguelina
[2024-03-19 17:02] LABS: Glucose Point of Care 148 mg/dl (65-105)
[2024-03-19] MEDS: ALBUTEROL SULFATE (*SP) AEROSOL 1 PUFF 2 PUFF INHALATION (17:19)
[2024-03-19] MEDS: ONDANSETRON INJ 4 MG/2 ML VIAL IV PUSH (17:25)
--- NOTE | 2024-03-19 18:38 | ECG_ITS ---
SEE SCANNED COPY FOR CONFIRMED REPORT. MTDD
[2024-03-19 19:21] LABS: Basophils Percent Auto 0.2 % (0.2-1.2); Eosinophils Absolute Auto 0.1 K/mm3 (0-0.3); Eosinophils Percent Auto 0.8 % (0-4.4); Hemoglobin 11.7 g/dL (14.0-18.0); Immature Granulocyte Absolute 0.08 K/mm3 (0.00-0.031); Immature Granulocyte Percent A 0.6 % (0-0.5); Lymphocytes Absolute Auto 1.13 K/mm3 (0.9-3.2); Lymphocytes Percent Auto 8.5 % (18.3-44.2); Mean Corpuscular HGB Conc 31.6 g/dl (32-36); Mean Corpuscular Hemoglobin 29.3 pg (26-34); Mean Corpuscular Volume 92.5 fl (80-100); Mean Platelet Volume 9.2 fl (7.4-10.4); Monocytes Absolute Auto 1.1 K/mm3 (0.1-0.6); Monocytes Percent Auto 7.9 % (2.6-8.5); Neutrophils Absolute Auto 10.8 K/mm3 (1.3-6.7); Platelet Count Result 219 k/mm3 (150-375); Red Cell Distribution Width 14.4 % (11.5-14.5); White Blood Count 13.2 K/mm3 (4.5-10.0)
[2024-03-19 19:32] LABS: Alanine Aminotransferase 34 U/L (6-50); Albumin Level 3.9 g/dL (3.5-5.1); Alkaline Phosphatase 127 U/L (38-126); Anion Gap 9 mmol/L (4-12); Aspartate Amino Transferase 39 U/L (17-59); Bilirubin,Total 0.7 mg/dL (0.2-1.3); Blood Urea Nitrogen 34 mg/dL (9-20); Calcium 8.8 mg/dL (8.4-10.2); Carbon Dioxide 25 mmol/L (22-30); Chloride 102 mmol/L (98-107); Estimated CRCL calculation 44 ml/min; Estimated Glomerular Filt Rate 50; Glucose 146 mg/dL (65-110); Magnesium 1.7 mg/dL (1.6-2.3); Phosphorus 2.7 mg/dL (2.5-4.5); Potassium 3.9 mmol/L (3.4-5.0); Sodium 136 mmol/L (137-145)
[2024-03-19] MEDS: ATORVASTATIN 40 MG TABLET PO (20:38)
[2024-03-19] MEDS: MIRTAZAPINE 15 MG TABLET PO (20:38)
[2024-03-19] MEDS: ASPIRIN 81 MG CHEWABLE TABLET 324 MG PO (20:41)
[2024-03-19] MEDS: SODIUM CHLORIDE 0.9% IV 1,000 ML 70 ML IV CONT (20:42)
[2024-03-19 21:55] LABS: Glucose Point of Care 132 mg/dl (65-105)
[2024-03-20] VITALS (11 sets, daily range): BP systolic 107–145; BP diastolic 55–75; PULSE 60–96; RESP 16–18; TEMP 36.4–37; O2SAT 64–99
--- NOTE | 2024-03-20 | ECHO_ITS ---
Patient Info Name: Yvan Chau Age: 69 years : 1955 Gender: Male Ht: 69 in Wt: 159 lbs BSA: 1.88 m2 HR: 96 bpm BP: 107 / 57 mmHg Heart Rhythm: Sinus Rhythm Technical Quality: Good Exam Date: 03/20/2024 11:03 AM Exam Location: Echo Lab Patient Status: Inpatient Admit Date: 03/16/2024 Staff Ordering Physician: Lul Dooley MD Radio Time Buyer: Beto Talley RDCS Attending Provider: Lul Dooley MD Exam Type: CA echo doppler w bubble study Study Info Indications - confusion Complete two-dimensional, color flow and Doppler transthoracic echocardiogram is performed with agitated saline. Summary 1. Left ventricular chamber dimension is normal. 2. Left ventricular systolic function is normal, estimated at 65-70%. 3. There is moderate concentric increased left ventricular wall thickness. 4. The left ventricular diastolic function is abnormal. 5. E/e' 12 is mildly elevated. 6. Left atrial chamber dimension is moderately enlarged. 7. There is mild aortic valve sclerosis. 8. The mitral valve has moderately calcified annulus. 9. There is mild tricuspid valve regurgitation. 10. Mild pulmonary hypertension, estimated pulmonary arterial systolic pressure is 46 mmHg. Left Ventricle E/e' 12 is mildly elevated. Left ventricular chamber dimension is normal. Left ventricular systolic function is normal, estimated at 65-70%. There is moderate concentric increased left ventricular wall thickness. The left ventricular diastolic function is abnormal. Right Ventricle Right ventricular systolic function is normal and with normal TAPSE 3.4 cm. Right ventricular chamber dimension is normal. Left Atria Left atrial chamber dimension is moderately enlarged. Right Atria Right atrial chamber dimension is normal. Atrial Septum Agitated saline injection with and without valsalva maneuver opacified right side cardiac chambers without shunt to left side cardiac chambers. Intact interatrial septum visualized by 2D and agitated saline imaging. Aortic Valve The aortic valve is trileaflet. There is mild aortic valve sclerosis. There is no aortic valve stenosis. There is no aortic valve regurgitation. Pulmonic Valve There is no pulmonic regurgitation. Mitral Valve The mitral valve has moderately calcified annulus. There is no mitral valve stenosis. There is no mitral valve regurgitation. Tricuspid Valve There is mild tricuspid valve regurgitation. Mild pulmonary hypertension, estimated pulmonary arterial systolic pressure is 46 mmHg. Pericardium/Pleural There is no pericardial effusion. Inferior Vena Cava Normal inferior vena cava with >50% collapse upon inspiration consistent with normal right atrial pressure, 5 mmHg. Aorta The aortic root size at the sinus of Valsalva is normal. Left Ventricular Outflow Tract Name Value Normal LVOT 2D LVOT Diameter 2.0 cm LVOT Doppler LVOT Peak Gradient 6 mmHg LVOT Mean Gradient 4 mmHg LVOT VTI 28 cm LVOT VTI/AV VTI Ratio 0.8 LVOT Stroke Volume 88 ml LVOT CO 5.4 l/min
[2024-03-20 05:02] LABS: Hematocrit 33.1 % (42.0-52.0); Mean Corpuscular HGB Conc 30.2 g/dl (32-36); Mean Corpuscular Volume 95.9 fl (80-100); Mean Platelet Volume 9.2 fl (7.4-10.4); Platelet Count Result 228 k/mm3 (150-375); Red Blood Count 3.45 M/mm3 (4.6-6.20); Red Cell Distribution Width 14.7 % (11.5-14.5); White Blood Count 15.6 K/mm3 (4.5-10.0)
[2024-03-20 05:16] LABS: Anion Gap 6 mmol/L (4-12); Blood Urea Nitrogen 38 mg/dL (9-20); Calcium 8.6 mg/dL (8.4-10.2); Carbon Dioxide 23 mmol/L (22-30); Chloride 108 mmol/L (98-107); Estimated CRCL calculation 37 ml/min; Estimated Glomerular Filt Rate 40; Glucose 126 mg/dL (65-110); Potassium 4.1 mmol/L (3.4-5.0); Sodium 137 mmol/L (137-145)
[2024-03-20] MEDS: FINASTERIDE 5 MG TABLET PO (08:11)
[2024-03-20] MEDS: METOPROLOL TARTRATE 50 MG TAB PO ×2 (08:11→20:28)
[2024-03-20] MEDS: ASPIRIN 81 MG CHEWABLE TABLET PO (08:11)
[2024-03-20] MEDS: AZITHROMYCIN 250 MG TABLET 500 MG PO (08:12)
[2024-03-20] MEDS: TAMSULOSIN HCL 0.4 MG CAPSULE PO ×2 (08:12→20:29)
[2024-03-20] MEDS: MULTIVITAMINS THERAPEUTIC TAB (*BKC) 1 TABLET PO (08:12)
[2024-03-20] MEDS: AMOXICILLIN/CLAVULANATE K 875-125 MG TAB 1 TABLET PO ×2 (08:12→20:29)
[2024-03-20] MEDS: guaiFENesin 12 HR 600 MG TABCR PO ×2 (08:12→20:29)
[2024-03-20] MEDS: BETHANECHOL CHLORIDE 5 MG TABLET PO ×3 (08:12→16:58)
--- NOTE | 2024-03-20 09:21 | P.PNIM_ITS ---
Progress Note: A&P Assessment and Plan (1) Pneumonia: Code(s): J18.9 - Pneumonia, unspecified organism Status: Acute Assessment and Plan: 03/19/24: * CXR on presentation shows airspace opacities in the mid and lower lung zones, right greater than left * Continue p.o. Augmentin and azithromycin * Sputum culture positive for yeast; patient's oropharynx examined today and no signs of candidiasis * MRSA nares negative * He has no supplemental oxygen requirement * Continue supportive care with bronchodilators, expectorants, Cornet * Repeat chest x-ray on 03/18 showed considerable interval improvement of bilateral pulmonary infiltrates and diminished prominence of the minor fissure since 03/15/2024. This suggests improvement of congestive heart failure and pulmonary edema. Minimal residual infiltrates and small pleural effusions remain. 03/20/24: * Continue with Augmentin and azithromycin * Currently room air * CTA of the head neck showing moderate pleural effusions and pneumonia * Repeat chest x-ray shown infiltrates but no pleural effusion * White blood cell count 15.6 today which is increased from yesterday. He is afebrile (2) Urinary retention: Code(s): R33.9 - Retention of urine, unspecified Status: Acute Assessment and Plan: 03/19/24: * Chronic ongoing issue being managed by Urology * Continue Bosch catheter at this time * Plan for void trial following appropriate treatment of suspected UTI * Continue home finasteride, tamsulosin, bethanechol * UA culture pending, prelim showing Enterococcus species 03/20/24: * Continue with current treatment plan (3) Diabetes: Qualifiers: Diabetes mellitus complication status: without complication Diabetes mellitus [facility] insulin use: without long term care administrator use Diabetes mellitus type: type 2 Qualified Code(s): E11.9 - Type 2 diabetes mellitus without complications Code(s): E11.9 - Type 2 diabetes mellitus without complications Status: Chronic Assessment and Plan: 03/19/24: * A1c is 5.8 * Blood sugars have been well controlled during admission * Continue Accu-Cheks and hypoglycemic protocol * He is diet controlled and not on any insulin or hypoglycemic agents. 03/20/24: * Continue with current treatment plan (4) Aphasia: Code(s): R47.01 - Aphasia Status: Acute Assessment and Plan: 03/20/24: * CTA of head and neck was negative for any acute intracranial process, occlusion, aneurysm, stenosis. It did show pulmonary opacities representing pneumonia and moderate bilateral pleural effusion. * Modified barium swallow was performed yesterday and was negative for any aspiration or laryngeal penetration. * Neuro consulted * Brain MRI shown old infarcts and age related changes * Echo today shown normal LV systolic function with an EF of 65-70%, mild pulmonary edema (5) LEANDRO (acute kidney injury): Code(s): N17.9 - Acute kidney failure, unspecified Status: Resolved Assessment and Plan: 03/20/24: * Creatinine 1.70 today, likely due to use of contrast versus hypovolemia * Continue IVF today for general hydration * I/O net negative today. Time Spent With Patient Time with patient: Greater than 35 minutes Subjective Date/time seen: 03/20/24 09:21 Interval history: This is a 69-year-old male who presented to the hospital on 03/15/2024 with altered mental status and fever. Workup in the hospital included a chest x-ray which showed pneumonia worsen from 02/01/2024, small left pleural effusion.
--- NOTE | 2024-03-20 09:21 | PM.IMPN ---
Progress Note: A&P Assessment and Plan (1) Pneumonia: Code(s): J18.9 - Pneumonia, unspecified organism Status: Acute Assessment and Plan: 03/19/24: CXR on presentation shows airspace opacities in the mid and lower lung zones, right greater than left Continue p.o. Augmentin and azithromycin Sputum culture positive for yeast; patient's oropharynx examined today and no signs of candidiasis MRSA nares negative He has no supplemental oxygen requirement Continue supportive care with bronchodilators, expectorants, Cornet Repeat chest x-ray on 03/18 showed considerable interval improvement of bilateral pulmonary infiltrates and diminished prominence of the minor fissure since 03/15/2024. This suggests improvement of congestive heart failure and pulmonary edema. Minimal residual infiltrates and small pleural effusions remain. 03/20/24: Continue with Augmentin and azithromycin Currently room air CTA of the head neck showing moderate pleural effusions and pneumonia Repeat chest x-ray shown infiltrates but no pleural effusion White blood cell count 15.6 today which is increased from yesterday. He is afebrile (2) Urinary retention: Code(s): R33.9 - Retention of urine, unspecified Status: Acute Assessment and Plan: 03/19/24: Chronic ongoing issue being managed by Urology Continue Bosch catheter at this time Plan for void trial following appropriate treatment of suspected UTI Continue home finasteride, tamsulosin, bethanechol UA culture pending, prelim showing Enterococcus species 03/20/24: Continue with current treatment plan (3) Diabetes: Qualifiers: Diabetes mellitus complication status: without complication Diabetes mellitus retirement insulin use: without longshore equipment operator use Diabetes mellitus type: type 2 Qualified Code(s): E11.9 - Type 2 diabetes mellitus without complications Code(s): E11.9 - Type 2 diabetes mellitus without complications Status: Chronic Assessment and Plan: 03/19/24: A1c is 5.8 Blood sugars have been well controlled during admission Continue Accu-Cheks and hypoglycemic protocol He is diet controlled and not on any insulin or hypoglycemic agents. 03/20/24: Continue with current treatment plan (4) Aphasia: Code(s): R47.01 - Aphasia Status: Acute Assessment and Plan: 03/20/24: CTA of head and neck was negative for any acute intracranial process, occlusion, aneurysm, stenosis. It did show pulmonary opacities representing pneumonia and moderate bilateral pleural effusion. Modified barium swallow was performed yesterday and was negative for any aspiration or laryngeal penetration. Neuro consulted Brain MRI shown old infarcts and age related changes Echo today shown normal LV systolic function with an EF of 65-70%, mild pulmonary edema (5) LEANDRO (acute kidney injury): Code(s): N17.9 - Acute kidney failure, unspecified Status: Resolved Assessment and Plan: 03/20/24: Creatinine 1.70 today, likely due to use of contrast versus hypovolemia Continue IVF today for general hydration I/O net negative today. Time Spent With Patient Time with patient: Greater than 35 minutes Subjective Date/time seen: 03/20/24 09:21 Interval history: This is a 69-year-old male who presented to the hospital on 03/15/2024 with altered mental status and fever. Workup in the hospital included a chest x-ray which showed pneumonia worsen from 02/01/2024, small left pleural effusion. Head CT showed old infarcts in the bilateral basal ganglia, age-related changes. UA showed 2+ leukocyte, 3-5 urine RBCs, 21-50 urine wbc's, 4+ bacteria. Urine culture showing Enterococcus species on final read. Patient currently on Augmentin and azithromycin to cover for the UTI and for the pneumonia. Yesterday patient stopped talking and RN called us to the bedside for further evaluation. They did a CTA of the head and neck which shown no
[2024-03-20 09:29] LABS: Glucose Point of Care 129 mg/dl (65-105)
--- NOTE | 2024-03-20 09:39 | WPDUROPN2 ---
Progress Note: A&P Assessment and Plan (1) Urinary retention: Code(s): R33.9 - Retention of urine, unspecified Status: Acute Assessment and Plan: Ongoing issue being managed as an outpatient. Plan was for voiding trial in the office on 03/16/24 but this was unfortunately cancelled due to his admission. Continue his regimen of tamsulosin, finasteride, and bethanechol Perdomo continued during admission in setting of acute UTI. Consider voiding trial tomorrow if continued improvement as he will have completed 5 days of appropriate antibiotics for UTI. (2) UTI (urinary tract infection): Qualifiers: Encounter type: initial encounter Indwelling urinary catheter type: indwelling urethral catheter Urinary tract infection type: catheter-associated UTI Qualified Code(s): T83.511A - Infection and inflammatory reaction due to indwelling urethral catheter, initial encounter; N39.0 - Urinary tract infection, site not specified Code(s): N39.0 - Urinary tract infection, site not specified Status: Acute Assessment and Plan: Urine culture with growth of enterococcus Continue antibiotics tailored to urine culture Subjective Subjective Date/Time Seen: 03/20/24 09:39 Interval history: Feeling well today. Reports no concerns. No issues with perdomo. He is now being evaluated by neurology for altered mental status. Communicates without difficulty during my assessment. Review of Systems Review of Systems: All systems reviewed & are unremarkable except as noted in HPI and below Exam Narrative: General:? Awake, alert, comfortable, no acute distress HEENT:? Normocephalic, atraumatic, sclerae anicteric Respiratory:? Normal respiratory effort, no accessory muscle use Abdomen:? Nondistended, soft, nontender : Perdomo catheter draining clear yellow urine Skin:? Normal coloration, warm and dry Neurologic:? No focal neuro deficits noted Psychiatric:? Appropriate mood and affect, judgment and insight intact Objective Data Vital Signs Vital Signs: Vital Signs - 24 hr 03/19/24 14:05 03/19/24 17:29 03/19/24 17:35 Temperature 97.7 F Pulse Rate 67 94 Respiratory Rate 16 18 Blood Pressure 121/65 184/87 H Pulse Oximetry 94 92 92 Oxygen Delivery Room Air 03/19/24 20:39 03/19/24 21:47 03/19/24 20:00 Temperature 99.6 F Pulse Rate 94 96 98 Respiratory Rate 20 Blood Pressure 123/75 Pulse Oximetry 93 Oxygen Delivery 03/19/24 20:00 03/20/24 00:00 03/20/24 04:00 Temperature Pulse Rate 78 71 Respiratory Rate Blood Pressure Pulse Oximetry Oxygen Delivery Room Air 03/20/24 05:29 03/20/24 08:11 03/20/24 08:10 Temperature 97.5 F L Pulse Rate 96 66 Respiratory Rate 18 Blood Pressure 107/57 L Pulse Oximetry 64 L Oxygen Delivery Room Air Intake/Output Intake/Output: Intake & Output 03/17/24 03/18/24 03/19/24 03/20/24 23:59 23:59 23:59 23:59 Intake Total 2430 1610 1010 240 Output Total 3400 1750 1750 500 Balance -970 -140 -740 -260 Meds/Results Medications: Active Medications Generic Name Dose Route Start Last Admin Trade Name Freq PRN Reason Stop Dose Admin Acetaminophen 650 mg 03/15/24 18:20 Acetaminophen 325 Mg Tablet PO Q4H PRN Mild Pain (1-3) or Fever Albuterol 2 puff 03/17/24 06:35 03/19/24 17:19 Albuterol Sulfate (*Sp) Aerosol 1 Puff INHALATION 2 puff Q6HRT PRN Administration Shortness Of Breath Amoxicillin/Clavulanate Potassium 1 tablet 03/16/24 09:00 03/20/24 08:12 Amoxicillin/Clavulanate K 875-125 Mg Tab PO 1 tablet Q12HR BASSEM Administration Aspirin 81 mg 03/20/24 08:00 03/20/24 08:11 Aspirin 81 Mg Chewable Tablet PO 81 mg DAILY@0800 BASSEM Administration Atorvastatin Calcium 40 mg 03/19/24 21:00 03/19/24 20:38 Atorvastatin 40 Mg Tablet PO 40 mg HS BASSEM Administration Azithromycin 500 mg 03/16/24 09:00 03/20/24 08:12 Azithromycin 250 Mg
--- NOTE | 2024-03-20 11:07 | WPDNEURCNPN ---
Consult date: 03/20/24 HPI: Yvan Chau is a 69 year old male Admitted to the hospital through the emergency room for the complaints of change in the mental status in addition to the history of fever patient has had evaluation for the possible UTI by the primary care physician as an outpatient and was supposed to be started on the antibiotic she attributed her change in the mental status to her UTI but patient has been spacey not responding appropriately, she has been taking multiple medication particularly involved mirtazapine 15mg daily and tamsulosin 0.4mg capsule twice a day. She does have ongoing history of atrial fibrillation documented by electrocardiogram in addition to the history of cerebral infarction and ongoing hypertension, [id number] diabetes mellitus and neurogenic bladder. She has also history of smoking packs per day 1 with ease smoked 49 and smoking pack years 49 and currently everyday smoker and also currently 20 drinks per week, initial vital signs were normal, and UA was abnormal, chest x-ray with small left pleural effusion, CT scan with the old infarct in bilateral basal ganglia, subsequently CTA of the head and neck with no intracranial disease or large vessel involvement repeat CT and CTA were negative but was noted to have focal weakness more verbal on aggravation sent to [place] [facility] was contacted who agreed to add the aspirin and Lipitor and suggested to have the MRI of the brain and echo with bubble at this stage EKG without atrial fibrillation, is still being treated for pneumonia and MRI is planned. [facility] Past Medical History Medical History Anxiety Arthritis Atrial fibrillation by electrocardiogram BPH loc w urin obs/LUTS CVA (cerebral vascular accident) no residual deficits Hyperlipidemia Hypertension Indwelling Bosch catheter present Neurogenic bladder Non-insulin dependent diabetes mellitus Normocytic anemia Obstructive uropathy TIA (transient ischemic attack) Surgical History Surgical History History of appendectomy Family History Family History Father Cerebrovascular accident Social History Social History Social History: Has a daughter Smoking packs per day: 1 Smoking cigarettes per day: 20.0 Years smoked: 49 Smoking pack-years: 49.00 Smoking status: Current every day smoker Tobacco type: cigarettes Second hand tobacco smoke exposure: Yes Additional smoking assessment comments: Currently smoking only 1 cigarette/day while living in assisted living. Alcohol intake: former Drinks per week: 1 Alcohol use details: couple times a week (happy hour) Substance use: former Substance use type: marijuana and crack/cocaine Last use: MARIJUANA A COUPLE MONTHS AGO Do You Feel Safe in your Home?: Yes Lack of Transportation: No Lack of Food: Never True Current Housing: I Have Housing Concerned About Future Housing: No Difficulty Paying Gas/Electric Bills: No Difficulty Paying for Meds: No Currently Unemployed: No Education: High School Diploma/GED Difficulty w/ Childcare or Family Care: No Living arrangements: assisted living Spiritual care concerns: No Meds Home Medications and Allergies Home Medications Medication Instructions Recorded Confirmed Type tamsulosin 0.4 mg capsule 0.4 mg PO BID 11/16/23 03/15/24 History metoprolol tartrate 50 mg tablet 50 mg PO BID 02/01/24 03/15/24 History therapeutic multivitamin 1 tablet PO DAILY 02/01/24 03/15/24 History (Thera-Tabs tablet) mirtazapine 15 mg tablet 15 mg PO HS 03/09/24 03/15/24 History Allergies Allergy/AdvReac Type Severity Reaction Status Date / Time No Known Allergies Allergy Mild Verified 03/15/24 14:03 Vital Signs Vital Signs - 24
[2024-03-20] MEDS: SODIUM CHLORIDE 0.9% IV 1,000 ML 70 ML IV CONT (12:58)
[2024-03-20] MEDS: MIRTAZAPINE 15 MG TABLET PO (20:29)
[2024-03-20] MEDS: ATORVASTATIN 40 MG TABLET PO (20:29)
[2024-03-20 21:36] LABS: Glucose Point of Care 139 mg/dl (65-105)
[2024-03-21] VITALS (10 sets, daily range): BP systolic 135–175; BP diastolic 63–85; PULSE 70–82; RESP 17–18; TEMP 36.6–36.7; O2SAT 96–98
[2024-03-21] MEDS: SODIUM CHLORIDE 0.9% IV 1,000 ML 70 ML IV CONT (05:27)
[2024-03-21] MEDS: TAMSULOSIN HCL 0.4 MG CAPSULE PO ×2 (08:20→20:09)
[2024-03-21] MEDS: guaiFENesin 12 HR 600 MG TABCR PO ×2 (08:20→20:09)
[2024-03-21] MEDS: AZITHROMYCIN 250 MG TABLET 500 MG PO (08:20)
[2024-03-21] MEDS: AMOXICILLIN/CLAVULANATE K 875-125 MG TAB 1 TABLET PO ×2 (08:20→20:08)
[2024-03-21] MEDS: FINASTERIDE 5 MG TABLET PO (08:20)
[2024-03-21] MEDS: ASPIRIN 81 MG CHEWABLE TABLET PO (08:20)
[2024-03-21] MEDS: MULTIVITAMINS THERAPEUTIC TAB (*BKC) 1 TABLET PO (08:20)
[2024-03-21] MEDS: BETHANECHOL CHLORIDE 5 MG TABLET PO ×3 (08:20→17:33)
[2024-03-21] MEDS: METOPROLOL TARTRATE 50 MG TAB PO ×2 (08:20→20:08)
--- NOTE | 2024-03-21 08:52 | P.PNIM_ITS ---
Progress Note: A&P Assessment and Plan (1) Pneumonia: Code(s): J18.9 - Pneumonia, unspecified organism Status: Acute Assessment and Plan: 03/19/24: * CXR on presentation shows airspace opacities in the mid and lower lung zones, right greater than left * Continue p.o. Augmentin and azithromycin * Sputum culture positive for yeast; patient's oropharynx examined today and no signs of candidiasis * MRSA nares negative * He has no supplemental oxygen requirement * Continue supportive care with bronchodilators, expectorants, Cornet * Repeat chest x-ray on 03/18 showed considerable interval improvement of bilateral pulmonary infiltrates and diminished prominence of the minor fissure since 03/15/2024. This suggests improvement of congestive heart failure and pulmonary edema. Minimal residual infiltrates and small pleural effusions remain. 03/20/24: * Continue with Augmentin and azithromycin * Currently room air * CTA of the head neck showing moderate pleural effusions and pneumonia * Repeat chest x-ray shown infiltrates but no pleural effusion * White blood cell count 15.6 today which is increased from yesterday. He is afebrile 03/21/24: * Continue with current treatment plan * White blood cell count is down to 10.4 (2) Urinary retention: Code(s): R33.9 - Retention of urine, unspecified Status: Acute Assessment and Plan: 03/19/24: * Chronic ongoing issue being managed by Urology * Continue Bosch catheter at this time * Plan for void trial following appropriate treatment of suspected UTI * Continue home finasteride, tamsulosin, bethanechol * UA culture pending, prelim showing Enterococcus species 03/20/24: * Continue with current treatment plan (3) Diabetes: Qualifiers: Diabetes mellitus complication status: without complication Diabetes mellitus assisted insulin use: without assisted use Diabetes mellitus type: type 2 Qualified Code(s): E11.9 - Type 2 diabetes mellitus without complications Code(s): E11.9 - Type 2 diabetes mellitus without complications Status: Chronic Assessment and Plan: 03/19/24: * A1c is 5.8 * Blood sugars have been well controlled during admission * Continue Accu-Cheks and hypoglycemic protocol * He is diet controlled and not on any insulin or hypoglycemic agents. 03/20/24: * Continue with current treatment plan (4) Aphasia: Code(s): R47.01 - Aphasia Status: Acute Assessment and Plan: 03/20/24: * CTA of head and neck was negative for any acute intracranial process, occlusion, aneurysm, stenosis. It did show pulmonary opacities representing pneumonia and moderate bilateral pleural effusion. * Modified barium swallow was performed yesterday and was negative for any aspiration or laryngeal penetration. * Neuro consulted * Brain MRI shown old infarcts and age related changes * Echo today shown normal LV systolic function with an EF of 65-70%, mild pulmonary edema 03/21/24: * Plan for EEG today per neurology (5) LEANDRO (acute kidney injury): Code(s): N17.9 - Acute kidney failure, unspecified Status: Resolved Assessment and Plan: 03/20/24: * Creatinine 1.70 today, likely due to use of contrast versus hypovolemia * Continue IVF today for general hydration * I/O net negative today. 03/21/24: * Creatinine is down to 1.2 today * We will discontinue IV fluid Time Spent With Patient Time with patient: Greater than 35 minutes Subjective Date/time seen: 03/21/24 08:52 Inter
--- NOTE | 2024-03-21 08:52 | PM.IMPN ---
Progress Note: A&P Assessment and Plan (1) Pneumonia: Code(s): J18.9 - Pneumonia, unspecified organism Status: Acute Assessment and Plan: 03/19/24: CXR on presentation shows airspace opacities in the mid and lower lung zones, right greater than left Continue p.o. Augmentin and azithromycin Sputum culture positive for yeast; patient's oropharynx examined today and no signs of candidiasis MRSA nares negative He has no supplemental oxygen requirement Continue supportive care with bronchodilators, expectorants, Cornet Repeat chest x-ray on 03/18 showed considerable interval improvement of bilateral pulmonary infiltrates and diminished prominence of the minor fissure since 03/15/2024. This suggests improvement of congestive heart failure and pulmonary edema. Minimal residual infiltrates and small pleural effusions remain. 03/20/24: Continue with Augmentin and azithromycin Currently room air CTA of the head neck showing moderate pleural effusions and pneumonia Repeat chest x-ray shown infiltrates but no pleural effusion White blood cell count 15.6 today which is increased from yesterday. He is afebrile 03/21/24: Continue with current treatment plan White blood cell count is down to 10.4 (2) Urinary retention: Code(s): R33.9 - Retention of urine, unspecified Status: Acute Assessment and Plan: 03/19/24: Chronic ongoing issue being managed by Urology Continue Bosch catheter at this time Plan for void trial following appropriate treatment of suspected UTI Continue home finasteride, tamsulosin, bethanechol UA culture pending, prelim showing Enterococcus species 03/20/24: Continue with current treatment plan (3) Diabetes: Qualifiers: Diabetes mellitus complication status: without complication Diabetes mellitus salvage determiner insulin use: without alf use Diabetes mellitus type: type 2 Qualified Code(s): E11.9 - Type 2 diabetes mellitus without complications Code(s): E11.9 - Type 2 diabetes mellitus without complications Status: Chronic Assessment and Plan: 03/19/24: A1c is 5.8 Blood sugars have been well controlled during admission Continue Accu-Cheks and hypoglycemic protocol He is diet controlled and not on any insulin or hypoglycemic agents. 03/20/24: Continue with current treatment plan (4) Aphasia: Code(s): R47.01 - Aphasia Status: Acute Assessment and Plan: 03/20/24: CTA of head and neck was negative for any acute intracranial process, occlusion, aneurysm, stenosis. It did show pulmonary opacities representing pneumonia and moderate bilateral pleural effusion. Modified barium swallow was performed yesterday and was negative for any aspiration or laryngeal penetration. Neuro consulted Brain MRI shown old infarcts and age related changes Echo today shown normal LV systolic function with an EF of 65-70%, mild pulmonary edema 03/21/24: Plan for EEG today per neurology (5) LEANDRO (acute kidney injury): Code(s): N17.9 - Acute kidney failure, unspecified Status: Resolved Assessment and Plan: 03/20/24: Creatinine 1.70 today, likely due to use of contrast versus hypovolemia Continue IVF today for general hydration I/O net negative today. 03/21/24: Creatinine is down to 1.2 today We will discontinue IV fluid Time Spent With Patient Time with patient: Greater than 35 minutes Subjective Date/time seen: 03/21/24 08:52 Interval history: 03/20/24: This is a 69-year-old male who presented to the hospital on 03/15/2024 with altered mental status and fever. Workup in the hospital included a chest x-ray which showed pneumonia worsen from 02/01/2024, small left pleural effusion. Head CT showed old infarcts in the bilateral basal ganglia, age-related changes. UA showed 2+ leukocyte, 3-5 urine RBCs, 21-50 urine wbc's, 4+ bacteria. Urine culture showing Enterococcus species on final read. Patient brendan
[2024-03-21 09:48] LABS: Glucose Point of Care 140 mg/dl (65-105)
[2024-03-21 09:54] LABS: Basophils Percent Auto 0.3 % (0.2-1.2); Eosinophils Absolute Auto 0.4 K/mm3 (0-0.3); Eosinophils Percent Auto 4.1 % (0-4.4); Hematocrit 30.6 % (42.0-52.0); Hemoglobin 9.7 g/dL (14.0-18.0); Immature Granulocyte Absolute 0.07 K/mm3 (0.00-0.031); Immature Granulocyte Percent A 0.7 % (0-0.5); Lymphocytes Absolute Auto 2.22 K/mm3 (0.9-3.2); Lymphocytes Percent Auto 21.4 % (18.3-44.2); Mean Corpuscular HGB Conc 31.7 g/dl (32-36); Mean Corpuscular Hemoglobin 29.2 pg (26-34); Mean Corpuscular Volume 92.2 fl (80-100); Mean Platelet Volume 8.5 fl (7.4-10.4); Monocytes Absolute Auto 1.1 K/mm3 (0.1-0.6); Monocytes Percent Auto 10.9 % (2.6-8.5); Neutrophils Absolute Auto 6.5 K/mm3 (1.3-6.7); Neutrophils Percent Auto 62.6 % (45.5-73.1); Platelet Count Result 192 k/mm3 (150-375); Red Blood Count 3.32 M/mm3 (4.6-6.20); Red Cell Distribution Width 14.7 % (11.5-14.5); White Blood Count 10.4 K/mm3 (4.5-10.0)
[2024-03-21 10:07] LABS: Alanine Aminotransferase 27 U/L (6-50); Albumin Level 3.1 g/dL (3.5-5.1); Alkaline Phosphatase 97 U/L (38-126); Anion Gap 7 mmol/L (4-12); Aspartate Amino Transferase 30 U/L (17-59); Bilirubin,Total 0.6 mg/dL (0.2-1.3); Blood Urea Nitrogen 30 mg/dL (9-20); Calcium 8.4 mg/dL (8.4-10.2); Carbon Dioxide 23 mmol/L (22-30); Chloride 109 mmol/L (98-107); Estimated CRCL calculation 51 ml/min; Estimated Glomerular Filt Rate 60; Glucose 136 mg/dL (65-110); Potassium 3.6 mmol/L (3.4-5.0); Sodium 139 mmol/L (137-145)
--- NOTE | 2024-03-21 11:40 | WPDNEURCNPN ---
Assessment and Plan Assessment and plan (1) Altered mental status: Code(s): R41.82 - Altered mental status, unspecified Status: Resolved Plan 1. Change in the mental status rule out the possibility of the recurrent stroke TIA 2. UTI by history 3. While he is being treated for the UTI in the hospital we can obtain the EEG to evaluate his brain activity In addition to B12 and folate level. Consult date: 03/21/24 HPI: Yvan Chau is a 69 year old male admitted to the hospital through the emergency room for the complaints of change in the mental status in addition to the history of fever requiring to rule out the possibility of UTI by the primary care physician as an outpatient and was supposed to be started on antibiotic but because of the change in mental status was brought to the emergency room, patient has been spacey, not responding appropriately, patient has been taking multiple medication particularly metoprolol 50mg b.i.d., tamsulosin 0.4mg capsule twice a day and monitor as opinion 50mg at night,does not have a history of atrial fibrillation but has history of documented cerebral infarction and ongoing hypertension, [id number] diabetes mellitus, and neurogenic bladder patient has history of smoking smoking pack years 49 and currently everyday smoker and drinking 20 drinks per week. On initial evaluation in the emergency room UA was abnormal chest x-ray with small left pleural effusion CT scan of the head with old infarct in bilateral basal ganglia CTA of the head and neck with no intracranial disease or large vessel occlusion or aneurysm. [facility] Past Medical History Medical History Anxiety Arthritis Atrial fibrillation by electrocardiogram BPH loc w urin obs/LUTS CVA (cerebral vascular accident) no residual deficits Hyperlipidemia Hypertension Indwelling Bosch catheter present Neurogenic bladder Non-insulin dependent diabetes mellitus Normocytic anemia Obstructive uropathy TIA (transient ischemic attack) Surgical History Surgical History History of appendectomy Family History Family History Father Cerebrovascular accident Social History Social History Social History: Has a daughter Smoking packs per day: 1 Smoking cigarettes per day: 20.0 Years smoked: 49 Smoking pack-years: 49.00 Smoking status: Current every day smoker Tobacco type: cigarettes Second hand tobacco smoke exposure: Yes Additional smoking assessment comments: Currently smoking only 1 cigarette/day while living in assisted living. Alcohol intake: former Drinks per week: 1 Alcohol use details: couple times a week (happy hour) Substance use: former Substance use type: marijuana and crack/cocaine Last use: MARIJUANA A COUPLE MONTHS AGO Do You Feel Safe in your Home?: Yes Lack of Transportation: No Lack of Food: Never True Current Housing: I Have Housing Concerned About Future Housing: No Difficulty Paying Gas/Electric Bills: No Difficulty Paying for Meds: No Currently Unemployed: No Education: High School Diploma/GED Difficulty w/ Childcare or Family Care: No Living arrangements: assisted living Spiritual care concerns: No Meds Home Medications and Allergies Home Medications Medication Instructions Recorded Confirmed Type tamsulosin 0.4 mg capsule 0.4 mg PO BID 11/16/23 03/15/24 History metoprolol tartrate 50 mg tablet 50 mg PO BID 02/01/24 03/15/24 History therapeutic multivitamin 1 tablet PO DAILY 02/01/24 03/15/24 History (Thera-Tabs tablet) mirtazapine 15 mg tablet 15 mg PO HS 03/09/24 03/15/24 History Allergies Allergy/AdvReac Type Severity Reaction Status Date / Time No Known Allergies Allergy Mild Verified 03/15/24 14:03
--- NOTE | 2024-03-21 11:57 | WPDUROPN2 ---
Progress Note: A&P Assessment and Plan (1) Urinary retention: Code(s): R33.9 - Retention of urine, unspecified Status: Acute Assessment and Plan: Ongoing issue being managed as an outpatient. Plan was for voiding trial in the office on 03/16/24 but this was unfortunately cancelled due to his admission. Continue his regimen of tamsulosin, finasteride, and bethanechol Will proceed with perdomo removal and voiding trial today. Check PVR after first void. (2) UTI (urinary tract infection): Qualifiers: Encounter type: initial encounter Indwelling urinary catheter type: indwelling urethral catheter Urinary tract infection type: catheter-associated UTI Qualified Code(s): T83.511A - Infection and inflammatory reaction due to indwelling urethral catheter, initial encounter; N39.0 - Urinary tract infection, site not specified Code(s): N39.0 - Urinary tract infection, site not specified Status: Acute Assessment and Plan: Urine culture with growth of enterococcus Continue antibiotics tailored to urine culture Subjective Subjective Date/Time Seen: 03/21/24 09:00 Interval history: Yvan is feeling well today. He has no concerns. His perdomo is draining clear yellow urine. Denies nausea, vomiting, fever, chills. Review of Systems Review of Systems: All systems reviewed & are unremarkable except as noted in HPI and below Exam Narrative: General:? Awake, alert, comfortable, no acute distress HEENT:? Normocephalic, atraumatic, sclerae anicteric Respiratory:? Normal respiratory effort, no accessory muscle use Abdomen:? Nondistended, soft, nontender : Perdomo catheter draining clear yellow urine Skin:? Normal coloration, warm and dry Neurologic:? No focal neuro deficits noted Psychiatric:? Appropriate mood and affect, judgment and insight intact Objective Data Vital Signs Vital Signs: Vital Signs - 24 hr 03/20/24 12:00 03/20/24 14:00 03/20/24 16:00 Temperature 98.1 F Pulse Rate 68 60 65 Respiratory Rate 16 Blood Pressure 123/55 L Pulse Oximetry 99 Oxygen Delivery 03/20/24 20:03 03/20/24 20:28 03/20/24 20:00 Temperature 98.6 F Pulse Rate 79 89 79 Respiratory Rate 18 Blood Pressure 145/75 H Pulse Oximetry 99 Oxygen Delivery 03/20/24 20:00 03/21/24 00:00 03/21/24 04:00 Temperature Pulse Rate 76 82 Respiratory Rate Blood Pressure Pulse Oximetry Oxygen Delivery Room Air 03/21/24 05:14 03/21/24 08:20 03/21/24 08:15 Temperature 98.1 F Pulse Rate 80 80 Respiratory Rate 18 Blood Pressure 175/85 H Pulse Oximetry 97 Oxygen Delivery Room Air 03/21/24 10:09 Temperature Pulse Rate Respiratory Rate Blood Pressure Pulse Oximetry Oxygen Delivery Room Air Intake/Output Intake/Output: Intake & Output 03/18/24 03/19/24 03/20/24 03/21/24 23:59 23:59 23:59 23:59 Intake Total 1610 1010 2210 1480 Output Total 1750 1308 096 4345 Balance -140 -740 1260 180 Meds/Results Medications: Active Medications Generic Name Dose Route Start Last Admin Trade Name Freq PRN Reason Stop Dose Admin Acetaminophen 650 mg 03/15/24 18:20 Acetaminophen 325 Mg Tablet PO Q4H PRN Mild Pain (1-3) or Fever Albuterol 2 puff 03/17/24 06:35 03/19/24 17:19 Albuterol Sulfate (*Sp) Aerosol 1 Puff INHALATION 2 puff Q6HRT PRN Administration Shortness Of Breath Amoxicillin/Clavulanate Potassium 1 tablet 03/16/24 09:00 03/21/24 08:20 Amoxicillin/Clavulanate K 875-125 Mg Tab PO 1 tablet Q12HR BASSEM Administration Aspirin 81 mg 03/20/24 08:00 03/21/24 08:20 Aspirin 81 Mg Chewable Tablet PO 81 mg DAILY@0800 BASSEM Administration Atorvastatin Calcium 40 mg 03/19/24 21:00 03/20/24 20:29 Atorvastatin 40 Mg Tablet PO 40 mg HS BASSEM Administration Azithromycin 500 mg 03/16/24 09:00 03/21/24 08:20 Azithromycin 250 Mg Tablet PO 500 mg DAILY BASSEM Administr
[2024-03-21] MEDS: ACETAMINOPHEN 325 MG TABLET 650 MG PO (18:26)
[2024-03-21] MEDS: MIRTAZAPINE 15 MG TABLET PO (20:08)
[2024-03-21] MEDS: ATORVASTATIN 40 MG TABLET PO (20:09)
[2024-03-21 20:10] LABS: Glucose Point of Care 156 mg/dl (65-105)
[2024-03-22] VITALS (8 sets, daily range): BP systolic 155–162; BP diastolic 77–94; PULSE 67–79; RESP 16–18; TEMP 36.6–36.8; O2SAT 98
[2024-03-22 04:57] LABS: Basophils Percent Auto 0.4 % (0.2-1.2); Eosinophils Absolute Auto 0.4 K/mm3 (0-0.3); Eosinophils Percent Auto 4.1 % (0-4.4); Hematocrit 33.2 % (42.0-52.0); Hemoglobin 10.4 g/dL (14.0-18.0); Immature Granulocyte Absolute 0.08 K/mm3 (0.00-0.031); Immature Granulocyte Percent A 0.7 % (0-0.5); Lymphocytes Absolute Auto 3.02 K/mm3 (0.9-3.2); Lymphocytes Percent Auto 27.8 % (18.3-44.2); Mean Corpuscular HGB Conc 31.3 g/dl (32-36); Mean Corpuscular Hemoglobin 29.3 pg (26-34); Mean Corpuscular Volume 93.5 fl (80-100); Mean Platelet Volume 9.3 fl (7.4-10.4); Monocytes Percent Auto 9.2 % (2.6-8.5); Neutrophils Absolute Auto 6.3 K/mm3 (1.3-6.7); Neutrophils Percent Auto 57.8 % (45.5-73.1); Platelet Count Result 242 k/mm3 (150-375); Red Blood Count 3.55 M/mm3 (4.6-6.20); Red Cell Distribution Width 14.5 % (11.5-14.5); White Blood Count 10.9 K/mm3 (4.5-10.0)
[2024-03-22 05:05] LABS: Alanine Aminotransferase 29 U/L (6-50); Albumin Level 3.3 g/dL (3.5-5.1); Alkaline Phosphatase 101 U/L (38-126); Anion Gap 7 mmol/L (4-12); Aspartate Amino Transferase 35 U/L (17-59); Bilirubin,Total 0.7 mg/dL (0.2-1.3); Blood Urea Nitrogen 25 mg/dL (9-20); Calcium 8.8 mg/dL (8.4-10.2); Carbon Dioxide 22 mmol/L (22-30); Chloride 111 mmol/L (98-107); Estimated CRCL calculation 51 ml/min; Estimated Glomerular Filt Rate 60; Glucose 108 mg/dL (65-110); Potassium 3.7 mmol/L (3.4-5.0); Sodium 140 mmol/L (137-145)
[2024-03-22 08:19] LABS: Glucose Point of Care 82 mg/dl (65-105)
--- NOTE | 2024-03-22 08:30 | P.PNIM_ITS ---
Progress Note: A&P Assessment and Plan (1) Pneumonia: Code(s): J18.9 - Pneumonia, unspecified organism Status: Acute Assessment and Plan: 03/19/24: * CXR on presentation shows airspace opacities in the mid and lower lung zones, right greater than left * Continue p.o. Augmentin and azithromycin * Sputum culture positive for yeast; patient's oropharynx examined today and no signs of candidiasis * MRSA nares negative * He has no supplemental oxygen requirement * Continue supportive care with bronchodilators, expectorants, Cornet * Repeat chest x-ray on 03/18 showed considerable interval improvement of bilateral pulmonary infiltrates and diminished prominence of the minor fissure since 03/15/2024. This suggests improvement of congestive heart failure and pulmonary edema. Minimal residual infiltrates and small pleural effusions remain. 03/20/24: * Continue with Augmentin and azithromycin * Currently room air * CTA of the head neck showing moderate pleural effusions and pneumonia * Repeat chest x-ray shown infiltrates but no pleural effusion * White blood cell count 15.6 today which is increased from yesterday. He is afebrile 03/21/24: * Continue with current treatment plan * White blood cell count is down to 10.4 03/22/24: * No change to current treatment plan (2) Urinary retention: Code(s): R33.9 - Retention of urine, unspecified Status: Acute Assessment and Plan: 03/19/24: * Chronic ongoing issue being managed by Urology * Continue Bosch catheter at this time * Plan for void trial following appropriate treatment of suspected UTI * Continue home finasteride, tamsulosin, bethanechol * UA culture pending, prelim showing Enterococcus species 03/20/24: * Continue with current treatment plan 03/22/24: * Patient had voiding trial yesterday however he did fail this and the Bosch catheter was placed again. * Urology following (3) Diabetes: Qualifiers: Diabetes mellitus type: type 2 Diabetes mellitus fdc insulin use: without fdc use Diabetes mellitus complication status: without complication Qualified Code(s): E11.9 - Type 2 diabetes mellitus without complications Code(s): E11.9 - Type 2 diabetes mellitus without complications Status: Chronic Assessment and Plan: 03/19/24: * A1c is 5.8 * Blood sugars have been well controlled during admission * Continue Accu-Cheks and hypoglycemic protocol * He is diet controlled and not on any insulin or hypoglycemic agents. 03/20/24: * Continue with current treatment plan (4) Aphasia: Code(s): R47.01 - Aphasia Status: Acute Assessment and Plan: 03/20/24: * CTA of head and neck was negative for any acute intracranial process, occlusion, aneurysm, stenosis. It did show pulmonary opacities representing pneumonia and moderate bilateral pleural effusion. * Modified barium swallow was performed yesterday and was negative for any aspiration or laryngeal penetration. * Neuro consulted * Brain MRI shown old infarcts and age related changes * Echo today shown normal LV systolic function with an EF of 65-70%, mild pulmonary edema 03/21/24: * Plan for EEG today per neurology 03/22/24: * No change to current treatment plan Time Spent With Patient Time with patient: Greater than 35 minutes Subjective Date/time seen: 03/22/24 08:30 Interval history: 03/20/24: This is a 69-year-old male who presented to the hospital on 03/15/2024 with altered mental status and fever. Wor
--- NOTE | 2024-03-22 08:30 | PM.IMPN ---
Progress Note: A&P Assessment and Plan (1) Pneumonia: Code(s): J18.9 - Pneumonia, unspecified organism Status: Acute Assessment and Plan: 03/19/24: CXR on presentation shows airspace opacities in the mid and lower lung zones, right greater than left Continue p.o. Augmentin and azithromycin Sputum culture positive for yeast; patient's oropharynx examined today and no signs of candidiasis MRSA nares negative He has no supplemental oxygen requirement Continue supportive care with bronchodilators, expectorants, Cornet Repeat chest x-ray on 03/18 showed considerable interval improvement of bilateral pulmonary infiltrates and diminished prominence of the minor fissure since 03/15/2024. This suggests improvement of congestive heart failure and pulmonary edema. Minimal residual infiltrates and small pleural effusions remain. 03/20/24: Continue with Augmentin and azithromycin Currently room air CTA of the head neck showing moderate pleural effusions and pneumonia Repeat chest x-ray shown infiltrates but no pleural effusion White blood cell count 15.6 today which is increased from yesterday. He is afebrile 03/21/24: Continue with current treatment plan White blood cell count is down to 10.4 03/22/24: No change to current treatment plan (2) Urinary retention: Code(s): R33.9 - Retention of urine, unspecified Status: Acute Assessment and Plan: 03/19/24: Chronic ongoing issue being managed by Urology Continue Bosch catheter at this time Plan for void trial following appropriate treatment of suspected UTI Continue home finasteride, tamsulosin, bethanechol UA culture pending, prelim showing Enterococcus species 03/20/24: Continue with current treatment plan 03/22/24: Patient had voiding trial yesterday however he did fail this and the Bosch catheter was placed again. Urology following (3) Diabetes: Qualifiers: Diabetes mellitus type: type 2 Diabetes mellitus nursing home insulin use: without supervisor intermediates use Diabetes mellitus complication status: without complication Qualified Code(s): E11.9 - Type 2 diabetes mellitus without complications Code(s): E11.9 - Type 2 diabetes mellitus without complications Status: Chronic Assessment and Plan: 03/19/24: A1c is 5.8 Blood sugars have been well controlled during admission Continue Accu-Cheks and hypoglycemic protocol He is diet controlled and not on any insulin or hypoglycemic agents. 03/20/24: Continue with current treatment plan (4) Aphasia: Code(s): R47.01 - Aphasia Status: Acute Assessment and Plan: 03/20/24: CTA of head and neck was negative for any acute intracranial process, occlusion, aneurysm, stenosis. It did show pulmonary opacities representing pneumonia and moderate bilateral pleural effusion. Modified barium swallow was performed yesterday and was negative for any aspiration or laryngeal penetration. Neuro consulted Brain MRI shown old infarcts and age related changes Echo today shown normal LV systolic function with an EF of 65-70%, mild pulmonary edema 03/21/24: Plan for EEG today per neurology 03/22/24: No change to current treatment plan Time Spent With Patient Time with patient: Greater than 35 minutes Subjective Date/time seen: 03/22/24 08:30 Interval history: 03/20/24: This is a 69-year-old male who presented to the hospital on 03/15/2024 with altered mental status and fever. Workup in the hospital included a chest x-ray which showed pneumonia worsen from 02/01/2024, small left pleural effusion. Head CT showed old infarcts in the bilateral basal ganglia, age-related changes. UA showed 2+ leukocyte, 3-5 urine RBCs, 21-50 urine wbc's, 4+ bacteria. Urine culture showing Enterococcus species on final read. Patient currently on Augmentin and azithromycin to cover for the UTI and for the pneumonia. Yesterday patient stopped talking and RN called us to the be
[2024-03-22] MEDS: MULTIVITAMINS THERAPEUTIC TAB (*BKC) 1 TABLET PO (09:29)
[2024-03-22] MEDS: TAMSULOSIN HCL 0.4 MG CAPSULE PO (09:29)
[2024-03-22] MEDS: BETHANECHOL CHLORIDE 5 MG TABLET PO ×3 (09:29→16:56)
[2024-03-22] MEDS: guaiFENesin 12 HR 600 MG TABCR PO (09:30)
[2024-03-22] MEDS: AMOXICILLIN/CLAVULANATE K 875-125 MG TAB 1 TABLET PO (09:30)
[2024-03-22] MEDS: FINASTERIDE 5 MG TABLET PO (09:30)
[2024-03-22] MEDS: METOPROLOL TARTRATE 50 MG TAB PO (09:30)
[2024-03-22] MEDS: AZITHROMYCIN 250 MG TABLET 500 MG PO (09:30)
[2024-03-22] MEDS: ASPIRIN 81 MG CHEWABLE TABLET PO (09:41)
--- NOTE | 2024-03-22 13:18 | WPDNEUROPN ---
Progress Note: A&P Assessment and Plan (1) Altered mental status: Code(s): R41.82 - Altered mental status, unspecified Status: Resolved (2) Aphasia: Code(s): R47.01 - Aphasia Status: Acute (3) UTI (urinary tract infection): Qualifiers: Encounter type: initial encounter Indwelling urinary catheter type: indwelling urethral catheter Urinary tract infection type: catheter-associated UTI Qualified Code(s): T83.511A - Infection and inflammatory reaction due to indwelling urethral catheter, initial encounter; N39.0 - Urinary tract infection, site not specified Code(s): N39.0 - Urinary tract infection, site not specified Status: Acute Plan Mr. Chau is a 69 year old male with a history of HTN, chronic Bosch for neurogenic bladder, DM, questionable history of prior stroke and atrial fibrillation who is who was admitted for altered mental status. HE was ultimately found to have UTI. During admission he a transient episode of speech change -- he was alert but had 'paucity of speech' and unable to provide history. MRI brain was negative for stroke. Vessel imaging unrevealing. Symptoms were transient and he is at baseline. Started on aspirin and Lipitor 40mg daily. Patient is not aware of a prior history of atrial fibrillation or prior stroke. MRI brain did show old strokes but patient denied any prior stroke symptoms. There is also a history of atrial fibrillation in his problem list, although none of his prior EKGs show evidence of this and patient is not aware of this history either. I confirmed this with the hospitalist as well. Episode described could have been a TIA, but symptoms may have been related to underlying UTI as well. Nonetheless will continue the aspirin and Lipitor (goal LDL is <70). If we are treating this event as a TIA and he does have an underlying history of atrial fibrillation, he would have to be transitioned to anticoagulation. Will discharge with 30 day event monitor with cardiology follow-up. Subjective Date/time seen: 03/22/24 13:18 Interval history: Mr. Chau is a 69 year old male with a history of HTN, chronic Bosch for neurogenic bladder, DM, questionable history of prior stroke and atrial fibrillation who is who was admitted for altered mental status. HE was ultimately found to have UTI. During admission he had an episode of confusion -- he was alert but had 'paucity of speech' and unable to provide history. He was short of breath as well. His neurological exam was non focal otherwise -- no focal weakness or numbness. The case was discussed with U stroke team. CT head showed no acute changes. CTA brain/carotid was negative for stenosis/bleed. Symptoms eventual subsided. MRI brain was negative for acute stroke. He was started on aspirin 81mg daily as well as Lipitor. Echo was negative for shunt. No LDL on file. His A1c is 5.8. BP has been somewhat labile ranging from 120-180s systolic. Patient denies a history of prior stroke or atrial fibrillation. No old EKGs showing atrial fibrillation. He is not on any anticoagulation. Review of Systems Review of Systems: All systems reviewed & are unremarkable except as noted in HPI and below Exam Const: General: comfortable and no acute distress HENMT: Mouth: Yes moist mucous membranes Eyes: Pupils: Equal, round and reactive pupils present Resp: Effort & Inspection: normal respiratory effort Skin: General skin exam: normal color Neuro: Other: AOx3, Pupils equal and reactive bilaterally, EOMI, face symmetric, facial sensation intact, tongue protrudes midline, palate midline. Shoulder shrug normal. Strength is symmetric bilaterally and age appropriate. Sensation symmetric bilaterally. FNF normal bilaterally. Language comprehension and fluency intact. Gait deferred. Extrem: General: normal to inspection Psych: Mental Status: mental status grossly normal Other: irritable Objective Data Vital Signs
--- NOTE | 2024-03-22 13:43 | PM.DS ---
DS: Admitting Diagnosis Discharge Date 03/22/24 Admitting Diagnosis Acute urinary tract infection Pneumonia Diabetes DS: Discharge Diagnosis Discharge Diagnosis (1) Pneumonia: Code(s): J18.9 - Pneumonia, unspecified organism Status: Acute (2) Urinary retention: Code(s): R33.9 - Retention of urine, unspecified Status: Acute (3) Diabetes: Qualifiers: Diabetes mellitus type: type 2 Diabetes mellitus watermelon inspector insulin use: without watermelon inspector use Diabetes mellitus complication status: without complication Qualified Code(s): E11.9 - Type 2 diabetes mellitus without complications Code(s): E11.9 - Type 2 diabetes mellitus without complications Status: Chronic (4) Aphasia: Code(s): R47.01 - Aphasia Status: Acute DS: Summary Hospital Course Reason for hospitalization: Acute urinary tract infection Pneumonia Diabetes Hospital Course: 03/20/24: This is a 69-year-old male who presented to the hospital on 03/15/2024 with altered mental status and fever.? Workup in the hospital included a chest x-ray which showed pneumonia worsen from 02/01/2024, small left pleural effusion.? Head CT showed old infarcts in the bilateral basal ganglia, age-related changes.? UA showed 2+ leukocyte, 3-5 urine RBCs, 21-50 urine wbc's, 4+ bacteria.? Urine culture showing Enterococcus species on final read.? Patient currently on Augmentin and azithromycin to cover for the UTI and for the pneumonia.? Yesterday patient stopped talking and RN called us to the bedside for further evaluation.? They did a CTA of the head and neck which shown no acute intracranial process, no large vessel intracranial occlusion, it did note pulmonary opacities representing pneumonia and moderate bilateral pleural effusions.? He had a modified barium swallow which was negative for any laryngeal penetration or aspiration. Labs today show white blood cell count of 15.6 which is increased from previous, creatinine 1.7 which is increased from previous. Neuro was consulted. Echo shown normal LV systolic function with an EF of 65-70%, mild pulmonary hypertension. Brain MRI only shown old infarcts and age related changes. CXR shown the infiltrates however he is already being treated for pneumonia. On examination today patient is alert and oriented x3, lying in the bed. He denies any fever, chills, nausea, vomiting, diarrhea, abdominal pain, chest pain, shortness of breath. He does not have any neuro deficits on examination. He denies any pain at this time.? PT and OT were ordered to eval and treat. 03/21/24: Patient denies any new complaints today.? Patient has not rested well overnight and has not really gotten much sleep.? Seems a bit agitated today.? Labs today show a white blood cell count which is down to 10.4, hemoglobin 9.7. 03/22/24: Patient denies any new complaints today. Labs today were unremarkable. I did speak with Dr. Garner and she feels that we can just continue on aspirin and atorvastatin. He will need a 30 day event monitor to check him for AFib considering he was worked up for a neuro event this admission. He was not followed by Cardiology here so he will have to have this worked up by his PCP. Patient is stable for discharge at this time. He will need to follow up with his primary care physician in the next 3 4 days. He will also need to follow up with Urology for his urinary retention in the next 2 weeks. Final diagnosis: Urinary tract infection, pneumonia, aphasia, acute kidney injury Status at Discharge Cognitive/behavioral status at discharge: Alert oriented x4 Functional status at discharge: uses cane/walker Overall status at discharge: patient is progressing back to baseline Time Spent with Patient Time attestation: Total time spent providing and/or coordinating discharge services: Time spent: Less than 30 minutes Exam Narrative: General: In no acute distress, well nourished Head: atraumatic, no encephalopathy E
[2024-03-22 15:12] LABS: SARS-CoV-2 RNA PCR Negative (Negative)
[2024-03-22 16:39] LABS: LDL Cholesterol Direct 111 mg/dL
== END 2024-03-22 17:55 | DRG 698 ==
LOC: ANHED 17:12 → ANH2MED 19:05
PROVIDERS: Nurse Practitioner; Physician Assistant; Student in an Organized Health Care Education/Training Program; Admitting Provider Internal Medicine; Emergency Provider Student in an Organized Health Care Education/Training Program; PCP Emergency Medicine; Visit Provider Nurse Practitioner Acute Care
DX: T83.511A Infection and inflammatory reaction due to indwelling urethral catheter, initial encounter (principal); J18.9 Pneumonia, unspecified organism; N17.9 Acute kidney failure, unspecified; R47.01 Aphasia; N39.0 Urinary tract infection, site not specified; B95.2 Enterococcus as the cause of diseases classified elsewhere; E11.9 Type 2 diabetes mellitus without complications; N31.9 Neuromuscular dysfunction of bladder, unspecified; D64.9 Anemia, unspecified; N40.1 Benign prostatic hyperplasia with lower urinary tract symptoms; R33.8 Other retention of urine; N31.2 Flaccid neuropathic bladder, not elsewhere classified; F17.210 Nicotine dependence, cigarettes, uncomplicated; M19.90 Unspecified osteoarthritis, unspecified site; F41.9 Anxiety disorder, unspecified; I48.91 Unspecified atrial fibrillation; E78.5 Hyperlipidemia, unspecified; I10 Essential (primary) hypertension; Z11.52 Encounter for screening for COVID-19; Z86.73 Personal history of transient ischemic attack (TIA), and cerebral infarction without residual deficits; Z90.49 Acquired absence of other specified parts of digestive tract
CPT/HCPCS: 36415; 36600; 70450; 70496; 70498; 70553; 71045; 71046; 80048; 80053; 80076; 81001; 81003; 82607; 82746; 82805; 82948; 83036; 83605; 83721; 83735; 84100; 84443; 85025; 85027; 85610; 85730; 87070; 87077; 87086; 87088; 87181; 87205; 87635; 87641; 92526; 92610; 92611; 93005; 93306; 94640; 94667; 96361; 96365; 96375; 97110; 97161; 97165; 99285; A9270; A9577; G0378; J0692; J0696; J2405; J3370; J7030; J7120; Q9967

== ENCOUNTER 2024-04-06 13:54 | Outpatient (CLI) | payer MEDICARE, OTHER, SELFPAY ==
--- NOTE | ~2024-04-06 | XR_ITS ---
EXAMINATION: XR chest 2V DATE: 04/06/2024 14:19 INDICATION: Pneumonia. Smoker. TECHNIQUE: Frontal and lateral views of the chest were obtained on 3 radiographs. COMPARISON: Chest single view 03/20/2024 FINDINGS: There are small pleural effusions. Yon B-lines are noted, consistent mild pulmonary geo a. No pneumothorax. The heart size is normal. Calcified right hilar lymph nodes are consistent with o ld granulomatous disease. IMPRESSION: 1. Mild pulmonary edema. 2. Small pleural effusions. Reviewed, dictated and finalized at location E.
== END 2024-04-06 13:55 | disposition home or self-care (01) ==
PROVIDERS: PCP Emergency Medicine; Visit Provider Emergency Medicine
DX: J90 Pleural effusion, not elsewhere classified (principal); J81.1 Chronic pulmonary edema; J18.9 Pneumonia, unspecified organism; F17.210 Nicotine dependence, cigarettes, uncomplicated
CPT/HCPCS: 71046

== ENCOUNTER 2024-05-09 09:19 | Emergency (ER) | payer OTHER, MEDICARE, SELFPAY ==
[2024-05-09 09:30] VITALS: BP 130/69; PULSE 81; RESP 16; TEMP 37.4; O2SAT 94
--- NOTE | 2024-05-09 09:32 | ECG_ITS ---
Test Date: 2024-05-09 09:41:49 Measurements Intervals [place] Rate: 83 P: 42 [place]: 176 QRS: -64 QRSD: 113 T: 88 QT: 383 QTc: 451 Interpretive Statements SINUS RHYTHM WITH OCCASIONAL VENTRICULAR PREMATURE COMPLEXES WITH OCCASIONAL SUPRAVENTRICULAR PREMATURE COMPLEXES PATTERN CONSISTENT WITH PULMONARY DISEASE INCOMPLETE RIGHT BUNDLE BRANCH BLOCK [90+ ms QRS DURATION, TERMINAL R IN V1/V2, 40+ ms S IN I/aVL/V4/V5/V6] LEFT ANTERIOR FASCICULAR BLOCK [QRS AXIS <= -45, QR IN I, RS IN II] LEFT VENTRICULAR HYPERTROPHY AND ST-T CHANGE [VOLTAGE CRITERIA PLUS ST/T ABNORMALITY] POSSIBLE SEPTAL MYOCARDIAL INFARCTION , PROBABLY OLD [30 ms Q WAVE IN V1/V2] ABNORMAL ECG No previous ECG available for comparison Electronically Signed On 05-09-2024 15:15:13 CDT by Jameson Reeves M.D.
[2024-05-09 09:51] LABS: Basophils Percent Auto 0.3 % (0.2-1.2); Eosinophils Absolute Auto 0.2 K/mm3 (0-0.3); Eosinophils Percent Auto 2.1 % (0-4.4); Hematocrit 30.2 % (42.0-52.0); Hemoglobin 9.6 g/dL (14.0-18.0); Immature Granulocyte Absolute 0.17 K/mm3 (0.00-0.031); Immature Granulocyte Percent A 1.8 % (0-0.5); Lymphocytes Absolute Auto 1.47 K/mm3 (0.9-3.2); Lymphocytes Percent Auto 15.5 % (18.3-44.2); Mean Corpuscular HGB Conc 31.8 g/dl (32-36); Mean Corpuscular Hemoglobin 29.7 pg (26-34); Mean Corpuscular Volume 93.5 fl (80-100); Mean Platelet Volume 8.3 fl (7.4-10.4); Monocytes Absolute Auto 1.3 K/mm3 (0.1-0.6); Monocytes Percent Auto 13.6 % (2.6-8.5); Neutrophils Absolute Auto 6.3 K/mm3 (1.3-6.7); Neutrophils Percent Auto 66.7 % (45.5-73.1); Platelet Count Result 281 k/mm3 (150-375); Red Blood Count 3.23 M/mm3 (4.6-6.20); Red Cell Distribution Width 14.6 % (11.5-14.5); White Blood Count 9.5 K/mm3 (4.5-10.0)
[2024-05-09 10:01] LABS: Alanine Aminotransferase 44 U/L (6-50); Albumin Level 3.4 g/dL (3.5-5.1); Alkaline Phosphatase 124 U/L (38-126); Anion Gap 7 mmol/L (4-12); Aspartate Amino Transferase 46 U/L (17-59); Bilirubin,Total 0.8 mg/dL (0.2-1.3); Blood Urea Nitrogen 35 mg/dL (9-20); Calcium 8.6 mg/dL (8.4-10.2); Carbon Dioxide 25 mmol/L (22-30); Chloride 106 mmol/L (98-107); Estimated CRCL calculation 46 ml/min; Estimated Glomerular Filt Rate 50; Glucose 113 mg/dL (65-110); Potassium 4.3 mmol/L (3.4-5.0); Sodium 138 mmol/L (137-145)
[2024-05-09] MEDS: SODIUM CHLORIDE 0.9% IV 1,000 ML 999 ML IV CONT (10:47)
[2024-05-09 11:30] VITALS: BP 150/81; PULSE 95; RESP 16; O2SAT 100
[2024-05-09 11:47] LABS: Appearance Urine Clear (Clear); Bacteria Urine None Seen /hpf; Bilirubin Urine Negative (Negative); Blood Urine Negative (Negative); Color Urine Yellow (Yellow); Glucose Urine UA Negative (Negative); Ketones Urine Negative (Negative); Leukocyte Esterase Ur Trace LEU/UL (Negative); Nitrate Urine Negative (Negative); Non Pathogenic Casts 0-2; Protein Urine 1+ mg/dL (Negative); Specific Grav Ur 1.014 (1.001-1.035); Squamous Epithelial Cell Urine None Seen /hpf (Few); WBC Urine 0-5 /hpf (0-3)
[2024-05-09 12:02] LABS: Add Urine Microscopic? YES
[2024-05-09 13:12] VITALS: BP 141/82; BP 146/85; PULSE 101; PULSE 93
[2024-05-09 13:13] VITALS: BP 130/66; PULSE 105
[2024-05-09 13:14] VITALS: BP 130/66; PULSE 10; RESP 24; O2SAT 97
--- NOTE | 2024-05-09 13:20 | ED.GENADULT ---
HPI - General Adult General Chief complaint: Syncope Stated complaint: syncopy Time Seen by Provider: 05/09/24 09:20 History of Present Illness HPI narrative: Patient is a 69-year-old male who presents to the ER from [facility] after having a syncopal episode. patient got up from a chair and then got lightheaded and passed out but was caught by staff. Patient reports he recently had a stroke. He did not hit his head. Denies chest pain or chest pressure or any other issue. He does have a Bosch bag. he has no complaints. Related Data Home Medications Medication Instructions Recorded Confirmed tamsulosin 0.4 mg capsule 0.4 mg PO 1700 11/16/23 05/01/24 metoprolol tartrate 50 mg tablet 50 mg PO BID 02/01/24 05/01/24 mirtazapine 15 mg tablet 15 mg PO HS 03/09/24 05/01/24 apixaban 5 mg tablet 5 mg PO BID 05/01/24 05/01/24 atorvastatin 40 mg tablet 40 mg PO DAILY 05/01/24 05/01/24 cephalexin 500 mg capsule 500 mg PO Q12H 05/01/24 05/01/24 ferrous sulfate 325 mg (65 mg 325 mg PO BIDWMEAL 05/01/24 05/01/24 iron) tablet Allergies Allergy/AdvReac Type Severity Reaction Status Date / Time No Known Allergies Allergy Mild Verified 03/15/24 14:03 Review of Systems Review of Systems: All systems reviewed & are unremarkable except as noted in HPI and below Constitutional: Constitutional: Reports no additional constitutional complaints Cardiovascular: Cardiovascular: Reports no additional cardiovascular complaints Respiratory: Respiratory: Reports no additional respiratory complaints Gastrointestinal: Gastrointestinal: Reports no additional gastrointestinal complaints Integumentary/Breasts: Skin/Breast: Reports system reviewed and no additional complaints, except as docu Neurologic: Reports syncope [facility] Past Medical History Medical History (Updated 05/09/24 @ 13:27 by Joel Tiwari MD) Anxiety Arthritis Atrial fibrillation by electrocardiogram BPH loc w urin obs/LUTS CVA (cerebral vascular accident) left Basal ganglia Also seen were numerous chronic lacunar infarctions of the bilateral basal ganglia, left thalamus and [place] radiata.? History of CVA (cerebrovascular accident) without residual deficits numerous chronic lacunar infarctions of the bilateral basal ganglia, left thalamus and [place] radiata.? Hyperlipidemia Hypertension Indwelling Bosch catheter present Neurogenic bladder Non-insulin dependent diabetes mellitus Normocytic anemia Obstructive uropathy TIA (transient ischemic attack) Surgical History Surgical History History of appendectomy Family History Family History Father Cerebrovascular accident Social History Social History Social History: Has a daughter Smoking packs per day: 1 Smoking cigarettes per day: 20.0 Years smoked: 30 Smoking pack-years: 30.00 Smoking status: Current every day smoker Tobacco type: cigarettes Second hand tobacco smoke exposure: Yes Additional smoking assessment comments: pt states he started smoking when he got at the age of 39 Alcohol intake: current Drinks per week: 1 Alcohol use details: couple times a week (happy hour) Substance use: former Substance use type: marijuana Last use: MARIJUANA A COUPLE MONTHS AGO Do You Feel Safe in your Home?: Yes Lack of Transportation: No Lack of Food: Never True Current Housing: I Have Housing Concerned About Future Housing: No Difficulty Paying Gas/Electric Bills: No Difficulty Paying for Meds: No Currently Unemployed: No Education: High School Diploma/GED Difficulty w/ Childcare or Family Care: No Living arrangements: assisted living Spiritual care concerns: No Exam Narrative: GENERAL: Well-appearing, well-nourished, and in no acute distress. HEAD: Normocephalic, a
== END 2024-05-09 14:30 ==
PROVIDERS: Emergency Provider Emergency Medicine; PCP Emergency Medicine
DX: R55 Syncope and collapse (principal); I48.91 Unspecified atrial fibrillation; I10 Essential (primary) hypertension; E11.9 Type 2 diabetes mellitus without complications; E78.5 Hyperlipidemia, unspecified; N31.9 Neuromuscular dysfunction of bladder, unspecified; D64.9 Anemia, unspecified; M19.90 Unspecified osteoarthritis, unspecified site; F41.9 Anxiety disorder, unspecified; F17.210 Nicotine dependence, cigarettes, uncomplicated; Z86.73 Personal history of transient ischemic attack (TIA), and cerebral infarction without residual deficits; Z79.01 Long term (current) use of anticoagulants; Z79.899 Other long term (current) drug therapy; I49.3 Ventricular premature depolarization; I45.2 Bifascicular block; I51.7 Cardiomegaly; R94.31 Abnormal electrocardiogram [ECG] [EKG]
CPT/HCPCS: 36415; 80053; 81001; 85025; 93005; 96360; 99284; J7030

== ENCOUNTER 2024-05-10 23:22 | Inpatient (IN) | payer MEDICARE, OTHER, SELFPAY ==
--- NOTE | ~2024-05-10 | XR_ITS ---
EXAMINATION: XR chest 2V DATE: 05/11/2024 00:15 INDICATION: Cough and pneumonia TECHNIQUE: PA and lateral views of the chest were obtained. COMPARISON: Chest radiograph dated 04/06/2024 FINDINGS: Calcified right middle lobe nodule consistent with old granulomatous disease. Small bilateral pleural effusions. Opacities in the bilateral lower lung zones, left greater than right. No pneumothorax. Th e cardiomediastinal silhouette is normal. There are a couple thin crescentic collections of high atte nuation material projecting to the left of the trachea at the thoracic inlet. Review of carotid CT an giogram dated 03/19/2024 demonstrates gas and a small amount of contrast within a [place] div erticulum at this location. IMPRESSION: 1. Opacities at the bilateral lower lungs, left greater than right suspicious for pneumonia with diff erential including less likely mild pulmonary edema or atelectasis. 2. Small bilateral pleural effusions. 3. Minimal amount of contrast within a likely left sided [place] Sus[place] diverticulum at the thoraci c inlet. Reviewed, dictated and finalized at location A. IMPRESSION: 1. Opacities at the bilateral lower lungs, left greater than right suspicious f or pneumonia with differential including less likely mild pulmonary edema or at electasis. 2. Small bilateral pleural effusions. 3. Minimal amount of contrast within a likely left sided [place] Susana diver ticulum at the thoracic inlet.
--- NOTE | ~2024-05-10 | XR_ITS ---
EXAMINATION: XR_FLGTUBINS_CR DATE: 05/11/2024 13:10 INDICATION: Dysphagia with aspiration requiring nasogastric tube placement which was unable to be roque dari on the floor TECHNIQUE: Fluoroscopy was utilized during placement of a nasogastric tube by the radiologist. A sing le sip of water-soluble contrast was administered to delineate the esophageal anatomy at the cervicot horacic junction. Following confirmation of appropriate tube positioning the tube was affixed to the nares with tape. A total of 2 fluoroscopic images were recorded The amount of fluoroscopy time used d uring this procedure was 1.2 minutes. Total DAP was 5.121 Gycm^2 COMPARISON: None. FINDINGS: Final image demonstrates small amount of contrast along with the tip in proximal side of the nasogast danitza tube in the body of the stomach. During placement the patient drank a small amount of water-solub le contrast as it was difficulty with advancement of the nasogastric tube in the proximal most esopha elli. This demonstrated a small left-sided [place] diverticulum as was noted on the prior ches t radiograph. IMPRESSION: 1. Nasogastric tube in stomach. 2. Left-sided [place] diverticulum. Reviewed, dictated and finalized at location A. IMPRESSION: 1. Nasogastric tube in stomach. 2. Left-sided [place]j-[place] diverticulum.
--- NOTE | ~2024-05-10 | XR_ITS ---
XR_FLGTUBINS_CR DATE: 05/12/2024 09:30 INDICATION: NG tube placement TECHNIQUE: Fluoroscopy was provided for the nurse to place an NG tube the left nare. FINDINGS: The NG tube was placed without difficulty into the stomach. A single spot exposure was made to confirm the position of the NG tube within the body of the stomach. IMPRESSION: NG tube placement in stomach Reviewed, dictated and finalized at Location A. Reviewed, dictated and finalized at location A.
[2024-05-10 23:23] VITALS: BP 165/82; PULSE 80; RESP 16; TEMP 36.7; O2SAT 100
[2024-05-11] VITALS (8 sets, daily range): BP systolic 138–180; BP diastolic 67–98; PULSE 66–94; RESP 13–16; TEMP 36.4–37.1; O2SAT 96–99; BMI 23.1
--- NOTE | 2024-05-11 | ECG_ITS ---
Test Date: 2024-05-11 04:24:14 Measurements Intervals [place] Rate: 86 P: 84 ND: 213 QRS: -66 QRSD: 118 T: 97 QT: 398 QTc: 477 Interpretive Statements SINUS RHYTHM WITH FIRST DEGREE AV BLOCK WITH FREQUENT VENTRICULAR PREMATURE COMPLEXES PATTERN CONSISTENT WITH PULMONARY DISEASE LEFT ANTERIOR FASCICULAR BLOCK [QRS AXIS <= -45, QR IN I, RS IN II] SEPTAL MYOCARDIAL INFARCTION , OF INDETERMINATE AGE [40+ ms Q WAVE IN V1/V2] MODERATE T-WAVE ABNORMALITY, CONSIDER LATERAL ISCHEMIA [-0.1+ mV T WAVE IN I/aVL/V5/V6] INCOMPLETE RIGHT BUNDLE-BRANCH BLOCK LEFT ANTERIOR FASCICULAR BLOCK ABNORMAL ECG Electronically Signed On 05-11-2024 10:57:24 CDT by Jameson Reeves M.D.
[2024-05-11 02:46] LABS: Basophils Percent Auto 0.4 % (0.2-1.2); Eosinophils Absolute Auto 0.2 K/mm3 (0-0.3); Eosinophils Percent Auto 2.2 % (0-4.4); Immature Granulocyte Percent A 0.9 % (0-0.5); Lymphocytes Absolute Auto 2.89 K/mm3 (0.9-3.2); Lymphocytes Percent Auto 27.2 % (18.3-44.2); Mean Corpuscular HGB Conc 31.3 g/dl (32-36); Mean Corpuscular Hemoglobin 29.5 pg (26-34); Mean Corpuscular Volume 94.4 fl (80-100); Mean Platelet Volume 8.7 fl (7.4-10.4); Monocytes Percent Auto 8.9 % (2.6-8.5); Neutrophils Absolute Auto 6.4 K/mm3 (1.3-6.7); Neutrophils Percent Auto 60.4 % (45.5-73.1); Platelet Count Result 325 k/mm3 (150-375); Red Blood Count 3.39 M/mm3 (4.6-6.20); White Blood Count 10.6 K/mm3 (4.5-10.0)
[2024-05-11 02:48] LABS: INR 1.2; Partial Thromboplastin Time 44.5 Seconds (22.3-36.8)
--- NOTE | 2024-05-11 02:49 | ED.GENADULT ---
HPI - General Adult General Chief complaint: Abdominal Pain Stated complaint: gtube placement Time Seen by Provider: 05/11/24 02:45 History of Present Illness HPI narrative: patient is a 69-year-old gentleman who presents emergency department with chief complaint of feeling swallow study and needs a G-tube placement. Patient currently has no complaints and is unsure why he was sent to the emergency department in the middle the Related Data Home Medications Medication Instructions Recorded Confirmed tamsulosin 0.4 mg capsule 0.4 mg PO 1700 11/16/23 05/01/24 metoprolol tartrate 50 mg tablet 50 mg PO BID 02/01/24 05/01/24 mirtazapine 15 mg tablet 15 mg PO HS 03/09/24 05/01/24 apixaban 5 mg tablet 5 mg PO BID 05/01/24 05/01/24 atorvastatin 40 mg tablet 40 mg PO DAILY 05/01/24 05/01/24 cephalexin 500 mg capsule 500 mg PO Q12H 05/01/24 05/01/24 ferrous sulfate 325 mg (65 mg 325 mg PO BIDWMEAL 05/01/24 05/01/24 iron) tablet Allergies Allergy/AdvReac Type Severity Reaction Status Date / Time No Known Allergies Allergy Mild Verified 03/15/24 14:03 Review of Systems Review of Systems: A 10 system review of systems was completed on the patient and is negative except for what is stated in the HPI. Nursing and ancillary documentation was reviewed. [facility] Past Medical History Medical History Anxiety Arthritis Atrial fibrillation by electrocardiogram BPH loc w urin obs/LUTS CVA (cerebral vascular accident) left Basal ganglia Also seen were numerous chronic lacunar infarctions of the bilateral basal ganglia, left thalamus and [place] radiata.? History of CVA (cerebrovascular accident) without residual deficits numerous chronic lacunar infarctions of the bilateral basal ganglia, left thalamus and [place] radiata.? Hyperlipidemia Hypertension Indwelling Bosch catheter present Neurogenic bladder Non-insulin dependent diabetes mellitus Normocytic anemia Obstructive uropathy TIA (transient ischemic attack) Surgical History Surgical History History of appendectomy Family History Family History Father Cerebrovascular accident Social History Social History Social History: Has a daughter Smoking packs per day: 1 Smoking cigarettes per day: 20.0 Years smoked: 30 Smoking pack-years: 30.00 Smoking status: Current every day smoker Tobacco type: cigarettes Second hand tobacco smoke exposure: Yes Additional smoking assessment comments: pt states he started smoking when he got at the age of 39 Alcohol intake: current Drinks per week: 1 Alcohol use details: couple times a week (happy hour) Substance use: former Substance use type: marijuana Last use: MARIJUANA A COUPLE MONTHS AGO Do You Feel Safe in your Home?: Yes Lack of Transportation: No Lack of Food: Never True Current Housing: I Have Housing Concerned About Future Housing: No Difficulty Paying Gas/Electric Bills: No Difficulty Paying for Meds: No Currently Unemployed: No Education: High School Diploma/GED Difficulty w/ Childcare or Family Care: No Living arrangements: assisted living Spiritual care concerns: No Exam Narrative: GENERAL: Well-appearing, well-nourished, and in no acute distress. HEAD: Normocephalic, atraumatic. EYES: PERRLA and EOMI. ENT: Nares clear, no rhinorrhea or epistaxis. Mucous membranes moist. NECK: Supple. CHEST: Clear to auscultation. No respiratory distress. HEART: Regular rate and rhythm. No murmur heard. Normal peripheral pulses. ABDOMEN: Soft, nontender, nondistended, normal active bowel sounds. EXTREMITIES: Normal range of motion. No edema. SKIN: Warm, dry, no rash. NEURO: No focal deficits. Alert and oriented x3.
[2024-05-11 03:28] LABS: Lactic Acid Reflex 0.9 mmol/L (0.7-2.0)
[2024-05-11 03:29] LABS: Alanine Aminotransferase 41 U/L (6-50); Albumin Level 3.6 g/dL (3.5-5.1); Alkaline Phosphatase 122 U/L (38-126); Anion Gap 8 mmol/L (4-12); Aspartate Amino Transferase 43 U/L (17-59); Bilirubin,Total 0.7 mg/dL (0.2-1.3); Blood Urea Nitrogen 34 mg/dL (9-20); Calcium 8.7 mg/dL (8.4-10.2); Carbon Dioxide 26 mmol/L (22-30); Chloride 107 mmol/L (98-107); Estimated CRCL calculation 45 ml/min; Estimated Glomerular Filt Rate 50; Glucose 103 mg/dL (65-110); Lipase 59 U/L (23-300); Magnesium 1.7 mg/dL (1.6-2.3); Potassium 3.9 mmol/L (3.4-5.0); Procalcitonin 0.1 ng/mL; Sodium 141 mmol/L (137-145)
[2024-05-11 04:41] LABS: Appearance Urine Clear (Clear); Bilirubin Urine Negative (Negative); Blood Urine Negative (Negative); Color Urine Yellow (Yellow); Glucose Urine UA Negative (Negative); Ketones Urine Negative (Negative); Leukocyte Esterase Ur Negative LEU/UL (Negative); Nitrate Urine Negative (Negative); Protein Urine Negative (Negative); Specific Grav Ur 1.008 (1.001-1.035); Urobilinogen Urine 0.2 mg/dL (<2.0)
[2024-05-11 04:43] LABS: Add Urine Microscopic? YES
[2024-05-11] MEDS: SODIUM CHLORIDE 0.9% IV 1,000 ML 75 ML IV CONT (05:16)
--- NOTE | 2024-05-11 06:06 | ADMGEN ---
This patient, Yvan Chau, was admitted to [facility] Surg Room 302-01. Patient/family oriented to hospital policies and general routines including ID bracelet, bed and alarms, visiting hours, pain management, procedures, bathroom and other care routines, personal items, smoking policy, room service/diet, and visiting hours. Information on how to activate the Rapid Response Team has been discussed. Patient/Family are encouraged to report perceived risks to care and to ask questions if they do not understand what they are told or what they should do.
[2024-05-11] MEDS: KCL 20 MEQ/D5/0.45% SOD CHL 1,000 ML 65 ML IV CONT ×2 (08:49→22:18)
--- NOTE | 2024-05-11 09:19 | PM.IMHP ---
H&P: HPI History of Present Illness Date/Time: 05/11/24 09:19 Chief Complaint: dysphagia, failed swallow study, aspiration pneumonia Narrative: This is a 69-year-old male patient history of recent acute CVA as well as imaging findings of multiple prior CVAs has been at [facility] for the last few days had an episode severe bradycardia with hypoxia and weakness. Patient found to be febrile. Chest x-ray showed signs of pneumonitis. Modified barium swallow was ordered and patient did not pass swallow study with any texture of food, had less aspiration with liquids. [place] to be related to esophageal weakness possibly sequela recent stroke. Patient was transported by ambulance the middle of the night to the emergency department last night for admission for G-tube placement. Gastroenterology is not available this facility the next few days so patient was admitted to the hospitalist service to initiate NG tube feedings and consult Gastroenterology on Tuesday for PEG tube placement. Chest x-ray in the emergency department does show signs of bilateral lower lobe pneumonia. Patient was fever I will in hypoxic at [facility] earlier in the same day yesterday. For this reason we will initiate IV antibiotics and draw blood cultures. MRSA nares is negative. Patient remains full code status at this time. He is agreeable to NG tube placement and initiate tube feedings over the weekend, agreeable to PEG tube placement by Gastroenterology on Tuesday or Tuesday. Patient elects his daughter Lynne as his designated decision maker if he is unable to make decisions. Patient does have chronic indwelling Bosch catheter in place no signs of acute urinary tract infection. Patient does have a history of atrial fibrillation as well as multiple areas of stroke and is Eliquis which will be held until after PEG tube placement. Patient will be placed on telemetry monitoring and continue metoprolol for rate control. With recent severe bradycardia and hypoxia uncertain if hypoxia caused the bradycardia or not. Review of Systems Review of Systems: All systems reviewed & are unremarkable except as noted in HPI and below PMFSH Past Medical History Medical History Anxiety Arthritis Atrial fibrillation by electrocardiogram BPH loc w urin obs/LUTS CVA (cerebral vascular accident) left Basal ganglia Also seen were numerous chronic lacunar infarctions of the bilateral basal ganglia, left thalamus and [place] radiata.? History of CVA (cerebrovascular accident) without residual deficits numerous chronic lacunar infarctions of the bilateral basal ganglia, left thalamus and [place] radiata.? Hyperlipidemia Hypertension Indwelling Bosch catheter present Neurogenic bladder Non-insulin dependent diabetes mellitus Normocytic anemia Obstructive uropathy TIA (transient ischemic attack) Surgical History Surgical History History of appendectomy Family History Family History Father Cerebrovascular accident Social History Social History Social History: Has a daughter Smoking packs per day: 1 Smoking cigarettes per day: 20.0 Years smoked: 30 Smoking pack-years: 30.00 Smoking status: Current every day smoker Tobacco type: cigarettes Second hand tobacco smoke exposure: Yes Additional smoking assessment comments: pt states he started smoking when he got at the age of 39 Alcohol intake: former Drinks per week: 1 Alcohol use details: couple times a week (happy hour) Substance use: never Substance use type: marijuana Last use: MARIJUANA A COUPLE MONTHS AGO Do You Feel Safe in your Home?: Yes Lack of Transportation: No Lack of Food: Never True Current Housing: I Have Housing Concerned
[2024-05-11 10:13] LABS: MRSA (PCR) NOT DETECTED (NOT DETECTE)
--- NOTE | 2024-05-11 13:08 | PCDIET ---
TUBE FEEDING RECOMMENDATIONS: Initiate enteral nutrition: Jevity 1.5 @ goal rate 50 ml/h: 1650 kcal, 70 g protein, 836 ml free water Flush 100 ml water q 4 hours. total water: 1436 ml/d Start at 30 ml/h and advance 10 ml q 4 hours till goal is reached.
--- NOTE | 2024-05-11 13:47 | PCSTNOTE ---
Please refer to the Bedside Swallow Evaluation in the EMR. Please note, silent aspiration cannot be ruled out at bedside.
[2024-05-11 16:52] LABS: Hemoglobin A1C 5.9 % (<5.7)
[2024-05-11] MEDS: PIPERACILLN/TAZ 3.375GM/NS50ML 3.375 GM/50 ML BAG IVPB ×2 (17:45→23:32)
[2024-05-11] MEDS: FERROUS SULFATE LIQUID 325 MG/7.4 ML ELIXIR FEED TUBE (17:45)
[2024-05-11] MEDS: FUROSEMIDE 20 MG TABLET FEED TUBE (17:45)
[2024-05-11 18:45] LABS: Glucose Point of Care 118 mg/dl (65-105)
[2024-05-11] MEDS: ENOXAPARIN 80 MG/0.8 ML SYRINGE 75 MG SUB-Q (22:17)
[2024-05-11] MEDS: METOPROLOL TARTRATE 50 MG TAB FEED TUBE (22:18)
[2024-05-11] MEDS: MIRTAZAPINE 15 MG TABLET FEED TUBE (22:18)
[2024-05-12] VITALS (10 sets, daily range): BP systolic 110–146; BP diastolic 57–86; PULSE 62–85; RESP 16–17; TEMP 36.1–36.5; O2SAT 94–99
[2024-05-12 01:27] LABS: Glucose Point of Care 145 mg/dl (65-105)
[2024-05-12] MEDS: PIPERACILLN/TAZ 3.375GM/NS50ML 3.375 GM/50 ML BAG IVPB ×3 (05:28→16:57)
[2024-05-12 05:50] LABS: Basophils Percent Auto 0.4 % (0.2-1.2); Eosinophils Absolute Auto 0.3 K/mm3 (0-0.3); Eosinophils Percent Auto 2.8 % (0-4.4); Hematocrit 30.2 % (42.0-52.0); Hemoglobin 9.3 g/dL (14.0-18.0); Immature Granulocyte Absolute 0.08 K/mm3 (0.00-0.031); Immature Granulocyte Percent A 0.8 % (0-0.5); Lymphocytes Percent Auto 24.9 % (18.3-44.2); Mean Corpuscular HGB Conc 30.8 g/dl (32-36); Mean Corpuscular Hemoglobin 29.1 pg (26-34); Mean Corpuscular Volume 94.4 fl (80-100); Mean Platelet Volume 9.2 fl (7.4-10.4); Monocytes Absolute Auto 1.1 K/mm3 (0.1-0.6); Monocytes Percent Auto 11.5 % (2.6-8.5); Neutrophils Absolute Auto 5.7 K/mm3 (1.3-6.7); Neutrophils Percent Auto 59.6 % (45.5-73.1); Platelet Count Result 325 k/mm3 (150-375); Red Cell Distribution Width 14.9 % (11.5-14.5); White Blood Count 9.6 K/mm3 (4.5-10.0)
[2024-05-12 06:03] LABS: Alanine Aminotransferase 39 U/L (6-50); Albumin Level 3.3 g/dL (3.5-5.1); Alkaline Phosphatase 125 U/L (38-126); Anion Gap 5 mmol/L (4-12); Aspartate Amino Transferase 45 U/L (17-59); Bilirubin,Total 0.7 mg/dL (0.2-1.3); Blood Urea Nitrogen 28 mg/dL (9-20); Calcium 8.3 mg/dL (8.4-10.2); Carbon Dioxide 27 mmol/L (22-30); Chloride 108 mmol/L (98-107); Estimated CRCL calculation 49 ml/min; Estimated Glomerular Filt Rate 55; Glucose 105 mg/dL (65-110); Magnesium 1.8 mg/dL (1.6-2.3); Phosphorus 3.5 mg/dL (2.5-4.5); Sodium 140 mmol/L (137-145)
[2024-05-12] MEDS: FINASTERIDE 5 MG TABLET FEED TUBE (09:59)
[2024-05-12] MEDS: ENOXAPARIN 80 MG/0.8 ML SYRINGE 75 MG SUB-Q ×2 (09:59→21:27)
[2024-05-12] MEDS: METOPROLOL TARTRATE 50 MG TAB FEED TUBE ×2 (09:59→21:27)
[2024-05-12] MEDS: FERROUS SULFATE LIQUID 325 MG/7.4 ML ELIXIR FEED TUBE ×2 (09:59→16:07)
[2024-05-12] MEDS: FUROSEMIDE 20 MG TABLET FEED TUBE ×2 (09:59→16:07)
[2024-05-12] MEDS: ATORVASTATIN 40 MG TABLET FEED TUBE (09:59)
[2024-05-12] MEDS: AZITHROMYCIN 250 MG TABLET 500 MG FEED TUBE (10:00)
--- NOTE | 2024-05-12 10:08 | PM.IMPN ---
Progress Note: A&P Assessment and Plan (1) Aspiration pneumonia: Code(s): J69.0 - Pneumonitis due to inhalation of food and vomit Status: Acute Assessment and Plan: episode of hypoxia and bradycardia at [facility] patient failed modified barium swallow all consistencies of food on 05/10 recent stroke esophageal weakness vs [place] Susana diverticulum seems to be the cause aspiration initiate IV antibiotics placement NG tube, begin tube feedings as directed by dietitian after NG placement verification speech therapy consulted for swallowing exercises IV fluids until patient is at goal with tube feeds gastroenterology consult on Tuesday tube feeds will be held midnight on Tuesday night into Tuesday morning for possible PEG tube placement on Tuesday (2) CVA (cerebral vascular accident): Code(s): I63.9 - Cerebral infarction, unspecified Status: Acute Assessment and Plan: Recent admission to [facility], discovered acute left basal ganglia infarct by MRI while admitted as well as multiple old chronic areas of stroke Was at [facility] the last 4 days for therapy (3) Dysphagia: Code(s): R13.10 - Dysphagia, unspecified Status: Acute Assessment and Plan: see above 05/12: NG accidently dislodged this morning, IR reinserted. (4) PAF (paroxysmal atrial fibrillation): Code(s): I48.0 - Paroxysmal atrial fibrillation Status: Acute Assessment and Plan: history of paroxysmal atrial fibrillation as well as multiple areas CVA on MRI Eliquis will be held until PEG tube placement telemetry monitoring ordered as [facility] for rate control by feeding tube (5) CKD (chronic kidney disease): Code(s): N18.9 - Chronic kidney disease, unspecified Status: Acute Assessment and Plan: patient appears to be near baseline estimated GFR 50 maintain adequate hydration via feeding tube/flushes and/or IV fluids when NPO monitor daily labs 05/12: Cr 1.3, GFR 55 (6) Chronic anemia: Code(s): D64.9 - Anemia, unspecified Status: Acute Assessment and Plan: stable, patient appears to be at baseline monitor daily labs Plan admit to [facility] tele GI consult on Tuesday NG tube for feeding through the weekend, NG had to be placed by Interventional Radiology after 4 failed attempts by nursing staff on the floor Time Spent With Patient Time with patient: Greater than 35 minutes Subjective Date/time seen: 05/12/24 10:08 Interval history: Patient accidentally dislodged NG tube this morning in the bathroom. IR replaced. Lovenox for now, we will hold 24 hours prior to her G-tube placement then restart Eliquis when ok with GI. Continue PT/OT. Review of Systems Review of Systems: All systems reviewed & are unremarkable except as noted in HPI and below Exam Narrative: GENERAL: Awake alert interactive, mildly confused which family is baseline, no acute distress. Patient was able to tell me that he was sent to the hospital to have a tube placed in his nose until he can have surgery to place the tube in his stomach for feeding. HEAD: Normocephalic, atraumatic. EYES: PERRLA and EOMI. ENT: Nares clear, no rhinorrhea or epistaxis. Mucous membranes moist. NG tube in place NECK: Supple. CHEST: Bibasilar crackles, no respiratory distress HEART: Regular rate and rhythm. Normal peripheral pulses. ABDOMEN: Soft, nontender, nondistended, normal active bowel sounds. EXTREMITIES: Normal range of motion. No edema. SKIN: Warm, dry, no rash. NEURO: Alert and generally oriented. No unilateral weakness or sensory deficits PSYCH: Normal mood and affect, disappointed regarding current situation but calm and cooperative Objective Data Vital Signs Vital Signs: Vital Signs - 24 hr 05/11/24 12:00 05/11/24 14:00 05/11/24 16:0
[2024-05-12 11:51] LABS: Glucose Point of Care 119 mg/dl (65-105)
[2024-05-12 17:53] LABS: Glucose Point of Care 137 mg/dl (65-105)
[2024-05-12] MEDS: MIRTAZAPINE 15 MG TABLET FEED TUBE (21:27)
[2024-05-13] VITALS (11 sets, daily range): BP systolic 138–174; BP diastolic 71–86; PULSE 66–76; RESP 16–20; TEMP 36.4–36.9; O2SAT 94–100
[2024-05-13] MEDS: PIPERACILLN/TAZ 3.375GM/NS50ML 3.375 GM/50 ML BAG IVPB ×4 (00:03→17:50)
[2024-05-13 01:48] LABS: Glucose Point of Care 145 mg/dl (65-105)
[2024-05-13 06:16] LABS: Basophils Percent Auto 0.2 % (0.2-1.2); Eosinophils Absolute Auto 0.3 K/mm3 (0-0.3); Eosinophils Percent Auto 3.9 % (0-4.4); Hemoglobin 9.5 g/dL (14.0-18.0); Immature Granulocyte Absolute 0.05 K/mm3 (0.00-0.031); Immature Granulocyte Percent A 0.6 % (0-0.5); Lymphocytes Absolute Auto 2.38 K/mm3 (0.9-3.2); Lymphocytes Percent Auto 27.2 % (18.3-44.2); Mean Corpuscular HGB Conc 31.7 g/dl (32-36); Mean Corpuscular Hemoglobin 29.3 pg (26-34); Mean Corpuscular Volume 92.6 fl (80-100); Neutrophils Percent Auto 57.1 % (45.5-73.1); Platelet Count Result 332 k/mm3 (150-375); Red Blood Count 3.24 M/mm3 (4.6-6.20); Red Cell Distribution Width 14.6 % (11.5-14.5); White Blood Count 8.7 K/mm3 (4.5-10.0)
[2024-05-13 06:27] LABS: Alanine Aminotransferase 34 U/L (6-50); Albumin Level 3.4 g/dL (3.5-5.1); Alkaline Phosphatase 124 U/L (38-126); Anion Gap 9 mmol/L (4-12); Aspartate Amino Transferase 37 U/L (17-59); Bilirubin,Total 0.7 mg/dL (0.2-1.3); Blood Urea Nitrogen 24 mg/dL (9-20); Calcium 8.3 mg/dL (8.4-10.2); Carbon Dioxide 25 mmol/L (22-30); Chloride 107 mmol/L (98-107); Estimated CRCL calculation 49 ml/min; Estimated Glomerular Filt Rate 55; Glucose 144 mg/dL (65-110); Magnesium 1.8 mg/dL (1.6-2.3); Phosphorus 3.4 mg/dL (2.5-4.5); Potassium 3.7 mmol/L (3.4-5.0); Sodium 141 mmol/L (137-145)
[2024-05-13] MEDS: METOPROLOL TARTRATE 50 MG TAB FEED TUBE ×2 (10:08→20:47)
[2024-05-13] MEDS: ATORVASTATIN 40 MG TABLET FEED TUBE (10:09)
[2024-05-13] MEDS: AZITHROMYCIN 250 MG TABLET 500 MG FEED TUBE (10:09)
[2024-05-13] MEDS: FINASTERIDE 5 MG TABLET FEED TUBE (10:09)
[2024-05-13] MEDS: FUROSEMIDE 20 MG TABLET FEED TUBE ×2 (10:09→16:26)
[2024-05-13] MEDS: ENOXAPARIN 80 MG/0.8 ML SYRINGE 75 MG SUB-Q ×2 (10:12→20:47)
[2024-05-13] MEDS: FERROUS SULFATE LIQUID 325 MG/7.4 ML ELIXIR FEED TUBE ×2 (10:12→16:26)
[2024-05-13 11:39] LABS: Glucose Point of Care 139 mg/dl (65-105)
--- NOTE | 2024-05-13 13:24 | PM.IMPN ---
Progress Note: A&P Assessment and Plan (1) Aspiration pneumonia: Code(s): J69.0 - Pneumonitis due to inhalation of food and vomit Status: Acute Assessment and Plan: episode of hypoxia and bradycardia at [facility] patient failed modified barium swallow all consistencies of food on 05/10 recent stroke esophageal weakness vs [place] Susana diverticulum seems to be the cause aspiration initiate IV antibiotics placement NG tube, begin tube feedings as directed by dietitian after NG placement verification speech therapy consulted for swallowing exercises IV fluids until patient is at goal with tube feeds gastroenterology consult on Tuesday tube feeds will be held midnight on Tuesday night into Tuesday morning for possible PEG tube placement on Tuesday (2) CVA (cerebral vascular accident): Code(s): I63.9 - Cerebral infarction, unspecified Status: Acute Assessment and Plan: Recent admission to [place], discovered acute left basal ganglia infarct by MRI while admitted as well as multiple old chronic areas of stroke Was at [facility] the last 4 days for therapy (3) Dysphagia: Code(s): R13.10 - Dysphagia, unspecified Status: Acute Assessment and Plan: see above 05/12: NG accidently dislodged this morning, IR reinserted. 05/13: Patient very frustrated with NPO Status. Wonder if we can reattempt MBS?? (4) PAF (paroxysmal atrial fibrillation): Code(s): I48.0 - Paroxysmal atrial fibrillation Status: Acute Assessment and Plan: history of paroxysmal atrial fibrillation as well as multiple areas CVA on MRI Eliquis will be held until PEG tube placement telemetry monitoring ordered as patient had severe episode of bradycardia at [facility] resume metoprolol for rate control by feeding tube (5) CKD (chronic kidney disease): Code(s): N18.9 - Chronic kidney disease, unspecified Status: Acute Assessment and Plan: patient appears to be near baseline estimated GFR 50 maintain adequate hydration via feeding tube/flushes and/or IV fluids when NPO monitor daily labs 05/12: Cr 1.3, GFR 55 (6) Chronic anemia: Code(s): D64.9 - Anemia, unspecified Status: Acute Assessment and Plan: stable, patient appears to be at baseline monitor daily labs Plan GI consult on Tuesday, possible PEG placement Can MBS be repeated? Time Spent With Patient Time with patient: 25 - 35 minutes Subjective Date/time seen: 05/13/24 13:24 Interval history: Tube feeds at goal. Patient very frustrated at NPO status. GI consult tomorrow for possible PEG placement. Would want to try MBS again if possible. Speech Therapy to be working on swallowing exercises. Review of Systems Review of Systems: All systems reviewed & are unremarkable except as noted in HPI and below Exam Narrative: GENERAL: Awake alert interactive, mildly confused which family is baseline, no acute distress. Patient frustrated about NPO status HEAD: Normocephalic, atraumatic. EYES: PERRLA and EOMI. ENT: Nares clear, no rhinorrhea or epistaxis. Mucous membranes moist. NG tube in place NECK: Supple. CHEST: Bibasilar crackles, no respiratory distress HEART: Regular rate and rhythm. Normal peripheral pulses. ABDOMEN: Soft, nontender, nondistended, normal active bowel sounds. EXTREMITIES: Normal range of motion. No edema. SKIN: Warm, dry, no rash. NEURO: Alert and generally oriented. No unilateral weakness or sensory deficits PSYCH: Normal mood and affect, disappointed regarding current situation but calm and cooperative Objective Data Vital Signs Vital Signs: Vital Signs - 24 hr 05/12/24 13:40 05/12/24 16:00 05/12/24 20:41 Temperature 36.5 C 36.2 C L Pulse Rate 62 66 71 Respiratory Rate 17 16 Blood Pressure 110/57 L 146/86 H Pulse Oximetry 97 99 Oxygen Delivery 05/12/24 20:0
[2024-05-13 18:23] LABS: Glucose Point of Care 132 mg/dl (65-105)
[2024-05-13] MEDS: MIRTAZAPINE 15 MG TABLET FEED TUBE (20:47)
[2024-05-13 23:01] LABS: Glucose Point of Care 141 mg/dl (65-105)
[2024-05-14] VITALS (15 sets, daily range): BP systolic 92–147; BP diastolic 48–107; PULSE 51–77; RESP 16–26; TEMP 36–36.6; O2SAT 93–100
[2024-05-14] MEDS: PIPERACILLN/TAZ 3.375GM/NS50ML 3.375 GM/50 ML BAG IVPB ×3 (00:26→12:05)
[2024-05-14] MEDS: KCL 20 MEQ/D5/0.45% SOD CHL 1,000 ML 65 ML IV CONT (02:00)
[2024-05-14 05:43] LABS: Glucose Point of Care 91 mg/dl (65-105)
[2024-05-14 06:06] LABS: Basophils Absolute Auto 0.1 K/mm3 (0.0-0.1); Basophils Percent Auto 0.4 % (0.2-1.2); Eosinophils Absolute Auto 0.4 K/mm3 (0-0.3); Eosinophils Percent Auto 3.2 % (0-4.4); Hematocrit 31.7 % (42.0-52.0); Hemoglobin 10.2 g/dL (14.0-18.0); Immature Granulocyte Absolute 0.07 K/mm3 (0.00-0.031); Immature Granulocyte Percent A 0.6 % (0-0.5); Lymphocytes Absolute Auto 2.83 K/mm3 (0.9-3.2); Lymphocytes Percent Auto 24.3 % (18.3-44.2); Mean Corpuscular HGB Conc 32.2 g/dl (32-36); Mean Corpuscular Hemoglobin 29.6 pg (26-34); Mean Corpuscular Volume 91.9 fl (80-100); Monocytes Absolute Auto 1.2 K/mm3 (0.1-0.6); Monocytes Percent Auto 10.7 % (2.6-8.5); Neutrophils Absolute Auto 7.1 K/mm3 (1.3-6.7); Neutrophils Percent Auto 60.8 % (45.5-73.1); Platelet Count Result 358 k/mm3 (150-375); Red Blood Count 3.45 M/mm3 (4.6-6.20); Red Cell Distribution Width 14.6 % (11.5-14.5); White Blood Count 11.6 K/mm3 (4.5-10.0)
[2024-05-14 06:26] LABS: Alanine Aminotransferase 33 U/L (6-50); Albumin Level 3.4 g/dL (3.5-5.1); Alkaline Phosphatase 129 U/L (38-126); Anion Gap 6 mmol/L (4-12); Aspartate Amino Transferase 42 U/L (17-59); Bilirubin,Total 0.7 mg/dL (0.2-1.3); Blood Urea Nitrogen 22 mg/dL (9-20); Calcium 8.5 mg/dL (8.4-10.2); Carbon Dioxide 26 mmol/L (22-30); Chloride 106 mmol/L (98-107); Estimated CRCL calculation 49 ml/min; Estimated Glomerular Filt Rate 55; Glucose 88 mg/dL (65-110); Magnesium 1.8 mg/dL (1.6-2.3); Phosphorus 3.4 mg/dL (2.5-4.5); Potassium 3.9 mmol/L (3.4-5.0); Sodium 138 mmol/L (137-145)
--- NOTE | 2024-05-14 08:04 | P.CONGI_ITS ---
I, Moustapha Ibanez MD, have provided a substantive portion of the care of this patient and discussed the patient with my Nurse Practitioner. I have reviewed any new relevant radiographic and laboratory results including medications. I agree with her documentation as noted below.?I personally performed the medical decision making and much of the history and exam for this encounter. briefly, he just had stroke and this time admitted after dyspnea, cough and diagnosed with aspiration pneumonia, MBS was abnormal and he is high risk of aspiration. Plan is to proceed with PEG placement for feeding until he is fully recovered from stroke/dysphagia. Assessment and Plan Assessment and plan (1) Dysphagia: Qualifiers: Dysphagia type: esophageal phase Qualified Code(s): R13.19 - Other dysphagia Code(s): R13.10 - Dysphagia, unspecified Status: Acute (2) Abnormal digestive system diagnostic imaging: Code(s): R93.3 - Abnormal findings on diagnostic imaging of other parts of digestive tract Status: Acute (3) Chronic anemia: Code(s): D64.9 - Anemia, unspecified Status: Acute (4) Bradycardia: Code(s): R00.1 - Bradycardia, unspecified Status: Acute Plan 1) Dysphagia/ abnormal imaging digestive: No known Hx of prior EGD. Modified barium swallow 03/19/2024 showed no laryngeal penetration or aspiration. Failed modified barium swallow of all consistencies of food on 05/10/2024. Chest x-ray 05/11/2024 showed a PCPs at bilateral lower lungs and minimal amount of contrast within a likely left-sided [place] Sus[place] diverticulum at the thoracic inlet. Recent admission to [place] at which time it was discovered the patient had an acute left basal ganglia infarct and evidence of multiple old chronic areas of stroke. Patient was at [place] [facility] prior to admission. 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 Patient currently being treated for aspiration pneumonia. NG in place to left nare. 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 H&H has remained relatively stable since admission. On iron supplementation. Today HGB 10, HCT 32, MCV 92, platelets 258. INR on admission 05/11 at 1.2 No signs of active GI bleeding. 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 Since admission patient is running between 65-78. * Primary care team to continue monitoring Thank you very much for allowing me to share in the care of this patient. This report may have been done utilizing a voice recognition system. Attempts have been made to correct errors. However, there may be uncorrected grammatical, spelling, and recognition errors present. GI Consult Note Consult date/time: 05/14/24 08:04 Reason for consult: PEG placement HPI: Yvan Chau is a 69 year old male with past medical Surgical history of anxiety, appendectomy, arthritis, atrial fibrillation on Eliquis, CVA, CKD, HLD, HTN, indwelling Bosch catheter, neurogenic bladder, diabetes, and history of TIA. Presented to the emergency room 05/11/2024 from [facility] after experiencing an acute CVA recently. He was admitted for severe bradycardia, hypoxia, and weakness. GI was consulted for PEG tube placement. Patient denies any GI complaints other than he is hungry. He denies abdominal pain, nause
--- NOTE | 2024-05-14 08:04 | WPDGICN ---
Assessment and Plan Assessment and plan (1) Dysphagia: Qualifiers: Dysphagia type: esophageal phase Qualified Code(s): R13.19 - Other dysphagia Code(s): R13.10 - Dysphagia, unspecified Status: Acute (2) Abnormal digestive system diagnostic imaging: Code(s): R93.3 - Abnormal findings on diagnostic imaging of other parts of digestive tract Status: Acute (3) Chronic anemia: Code(s): D64.9 - Anemia, unspecified Status: Acute (4) Bradycardia: Code(s): R00.1 - Bradycardia, unspecified Status: Acute Plan 1) Dysphagia/ abnormal imaging digestive: No known Hx of prior EGD. Modified barium swallow 03/19/2024 showed no laryngeal penetration or aspiration. Failed modified barium swallow of all consistencies of food on 05/10/2024. Chest x-ray 05/11/2024 showed a PCPs at bilateral lower lungs and minimal amount of contrast within a likely left-sided [place] Sus[place] diverticulum at the thoracic inlet. Recent admission to [place] at which time it was discovered the patient had an acute left basal ganglia infarct and evidence of multiple old chronic areas of stroke. Patient was at [facility] prior to admission. Patient with history of stroke and AFib on Eliquis FRAME EXPANDER , currently on Lovenox with last dose @ 8:21 this am. Patient currently being treated for aspiration pneumonia. NG in place to left nare. PEG today Ancef diamond sizer and grader to endo Continue holding tube feedings 2) Anemia: Chronic and likely multifactorial. H&H has remained relatively stable since admission. On iron supplementation. Today HGB 10, HCT 32, MCV 92, platelets 258. INR on admission 05/11 at 1.2 No signs of active GI bleeding. Primary care team to continue monitoring and transfuse as needed to keep Hgb >7 EGD with PEG today will allow for evaluation for any upper GI source 3) Bradycardia: FRAME EXPANDER patient noted to have HR of 32. Since admission patient is running between 65-78. Primary care team to continue monitoring Thank you very much for allowing me to share in the care of this patient. This report may have been done utilizing a voice recognition system. Attempts have been made to correct errors. However, there may be uncorrected grammatical, spelling, and recognition errors present. GI Consult Note Consult date/time: 05/14/24 08:04 Reason for consult: PEG placement HPI: Yvan Chau is a 69 year old male with past medical Surgical history of anxiety, appendectomy, arthritis, atrial fibrillation on Eliquis, CVA, CKD, HLD, HTN, indwelling Bosch catheter, neurogenic bladder, diabetes, and history of TIA. Presented to the emergency room 05/11/2024 from [facility] after experiencing an acute CVA recently. He was admitted for severe bradycardia, hypoxia, and weakness. GI was consulted for PEG tube placement. Patient denies any GI complaints other than he is hungry. He denies abdominal pain, nausea, vomiting, bloating, odynophagia, reflux, regurgitation, appetite loss, or weight loss. Per patient he is having daily BM's FRAME EXPANDER that are formed and nonurgent. Denies diarrhea, constipation, hematochezia, melena, fecal incontinence, or rectal pain. Patient was on Eliquis FRAME EXPANDER. ENDOSCOPY HISTORY: EGD: No prior EGD Hx. COLONOSCOPY: 02/26/2011 (Dr. Reyes) for CRC screening With the patient in the left lateral decubitus position under monitored anesthesia care, a rectal exam was performed, revealing normal sphincter tone and a smooth prostate. A Fujinon colonoscope was inserted with ease into the rectum. The rectal mucosa was normal. The sigmoid was tortuous. I noted diverticulosis also, but the sigmoid was so tortuous that despite numerous attempts, I was not able to advance above the 25 cm ag. We tried applying counter pressure, withdrawing the colonoscope, reinserting it, turning him onto his back, etc. Finally the procedure was terminated. PLAN:
[2024-05-14] MEDS: AZITHROMYCIN 250 MG TABLET 500 MG FEED TUBE (08:20)
[2024-05-14] MEDS: ATORVASTATIN 40 MG TABLET FEED TUBE (08:20)
[2024-05-14] MEDS: FERROUS SULFATE LIQUID 325 MG/7.4 ML ELIXIR FEED TUBE ×2 (08:20→17:43)
[2024-05-14] MEDS: FUROSEMIDE 20 MG TABLET FEED TUBE ×2 (08:20→17:44)
[2024-05-14] MEDS: METOPROLOL TARTRATE 50 MG TAB FEED TUBE ×2 (08:20→20:45)
[2024-05-14] MEDS: ENOXAPARIN 80 MG/0.8 ML SYRINGE 75 MG SUB-Q ×2 (08:21→20:43)
[2024-05-14] MEDS: FINASTERIDE 5 MG TABLET FEED TUBE (08:21)
--- NOTE | 2024-05-14 08:56 | PM.IMPN ---
Progress Note: A&P Assessment and Plan (1) Aspiration pneumonia: Qualifiers: Aspiration pneumonia type: unspecified Code(s): J69.0 - Pneumonitis due to inhalation of food and vomit Status: Acute Assessment and Plan: episode of hypoxia and bradycardia at [facility] at [facility] patient failed modified barium swallow all consistencies of food on 05/10 recent stroke esophageal weakness vs [place] Susana diverticulum seems to be the cause aspiration initiate IV antibiotics placement NG tube, begin tube feedings as directed by dietitian after NG placement verification speech therapy consulted for swallowing exercises IV fluids until patient is at goal with tube feeds gastroenterology consult on Tuesday tube feeds will be held midnight - wbc 11.6-monitor -no cough or sob (2) CVA (cerebral vascular accident): Code(s): I63.9 - Cerebral infarction, unspecified Status: Acute Assessment and Plan: Recent admission to [place], discovered acute left basal ganglia infarct by MRI while admitted as well as multiple old chronic areas of stroke Was at [facility] the last 4 days for therapy (3) Dysphagia: Qualifiers: Dysphagia type: esophageal phase Qualified Code(s): R13.19 - Other dysphagia Code(s): R13.10 - Dysphagia, unspecified Status: Acute Assessment and Plan: see above 05/12: NG accidently dislodged this morning, IR reinserted. 05/13: Patient very frustrated with NPO Status. Wonder if we can reattempt MBS?? 05/14- Gi FOLLOWING- SEEN THIS AM (4) PAF (paroxysmal atrial fibrillation): Code(s): I48.0 - Paroxysmal atrial fibrillation Status: Acute Assessment and Plan: history of paroxysmal atrial fibrillation as well as multiple areas CVA on MRI Eliquis will be held until PEG tube placement telemetry monitoring ordered as patient had severe episode of bradycardia at [facility] resume metoprolol for rate control by feeding tube 05/14 - pt is on lovenox- which is held- home eliquis is held as well per active orders review (5) CKD (chronic kidney disease): Code(s): N18.9 - Chronic kidney disease, unspecified Status: Acute Assessment and Plan: patient appears to be near baseline estimated GFR 50 maintain adequate hydration via feeding tube/flushes and/or IV fluids when NPO monitor daily labs 05/12: Cr 1.3, GFR 55 (6) Chronic anemia: Code(s): D64.9 - Anemia, unspecified Status: Acute Assessment and Plan: stable, patient appears to be at baseline monitor daily labs Plan PEG placed today Time Spent With Patient Time with patient: 25 - 35 minutes Subjective Date/time seen: 05/14/24 08:56 Interval history: Tube feeds at goal. Patient very frustrated at NPO status. GI consult tomorrow for possible PEG placement. Would want to try MBS again if possible. Speech Therapy to be working on swallowing exercises. 05/14- seen per GI this am- PEG tube scheduled. seen this afternoon- doing well somne abd discomfort but no n/v/d. Review of Systems Review of Systems: All systems reviewed & are unremarkable except as noted in HPI and below Exam Narrative: GENERAL: Awake alert interactive, mildly confused which family is baseline, no acute distress. Patient frustrated about NPO status HEAD: Normocephalic, atraumatic. EYES: PERRLA and EOMI. ENT: Nares clear, no rhinorrhea or epistaxis. Mucous membranes moist. NG tube in place NECK: Supple. CHEST: Bibasilar crackles, no respiratory distress HEART: Regular rate and rhythm. Normal peripheral pulses. ABDOMEN: Soft, nontender, nondistended, normal active bowel sounds. PEG tube- clamped-dressing c/d/i EXTREMITIES: Normal range of motion. No edema. SKIN: Warm, dry, no rash. NEURO: Alert and generally oriented. No unilateral weakness or sensory deficits PSYCH: Normal mood and
[2024-05-14 10:12] LABS: Glucose Point of Care 94 mg/dl (65-105)
--- NOTE | 2024-05-14 10:14 | PCPTNOTE ---
The patient treatment was not able to be completed due to patient out of room for PEG tube placement. Will plan to continue treatment per plan of care.
--- NOTE | 2024-05-14 10:16 | WPDANESEPPF ---
Anes - Initial Pre Proc Eval Procedure: Operation Date: 05/14/24 16:30 Proposed Procedures p Percutaneous Endoscopic Gastrostomy - Moustapha Ibanez MD Date/Time: 05/14/24 10:16 Surgeon: Hazel Simmons DO Pre Op Diagnosis: Dysphagia Patient Data Age: 69 Gender: M Height: 1.78 m Weight: 73.3 kg Last Vital Signs Temp 97.8 F 05/14/24 05:44 Pulse 77 05/14/24 08:20 Resp 16 05/14/24 05:44 BP 145/80 H 05/14/24 05:44 Pulse Ox 93 05/14/24 05:44 O2 Del Method Room Air 05/14/24 08:20 Allergies Allergy/AdvReac Type Severity Reaction Status Date / Time No Known Allergies Allergy Mild Verified 03/15/24 14:03 Home Medications Medication Instructions Recorded Confirmed Type tamsulosin 0.4 mg capsule 0.4 mg PO 1700 11/16/23 05/11/24 History metoprolol tartrate 50 mg tablet 50 mg PO BID 02/01/24 05/11/24 History mirtazapine 15 mg tablet 15 mg PO HS 03/09/24 05/11/24 History finasteride 5 mg tablet (Proscar) 5 mg PO QAM #30 tabs 03/22/24 05/11/24 Rx apixaban 5 mg tablet 5 mg PO BID 05/01/24 05/11/24 History atorvastatin 40 mg tablet 40 mg PO DAILY 05/01/24 05/11/24 History ferrous sulfate 325 mg (65 mg 325 mg PO BIDWMEAL 05/01/24 05/11/24 History iron) tablet acetaminophen 650 mg tablet 650 mg PO Q6H PRN Pain (Scale 05/11/24 05/11/24 History Score 1-3) benzonatate 100 mg capsule 100 mg PO TID PRN Cough 05/11/24 05/11/24 History furosemide 20 mg PO BID 05/11/24 05/11/24 History hydrocodone 5 mg-acetaminophen 325 1 tablet PO Q6H PRN Pain (Scale 05/11/24 05/11/24 History mg tablet Score 4-6) Laboratory Tests 05/13/24 05/13/24 05/13/24 11:37 18:21 22:58 WBC RBC Hgb Hct MCV MCH MCHC RDW Plt Count MPV Immature Gran % (Auto) Neut % (Auto) Lymph % (Auto) Rock % (Auto) Eos % (Auto) Baso % (Auto) Lymph # (Auto) Rock # (Auto) Eos # (Auto) Baso # (Auto) Abs Immat Gran (auto) Absolute Neuts (auto) Absolute Nucleated RBC Nucleated RBC % Sodium Potassium Chloride Carbon Dioxide Anion Gap BUN Creatinine Estim Creat Clear Calc Estimated GFR Glucose POC Capillary Glucose 139 H mg/dl 132 H mg/dl 141 H mg/dl (65-105) (65-105) (65-105) Calcium Phosphorus Magnesium Total Bilirubin AST ALT Alkaline Phosphatase Total Protein Albumin 05/14/24 05/14/24 05/14/24 05:00 05:18 05:19 WBC 11.6 H K/mm3 (4.5-10.0) RBC 3.45 L M/mm3 (4.6-6.20) Hgb 10.2 L g/dL (14.0-18.0) Hct 31.7 L % (42.0-52.0) MCV 91.9 fl (80-100) MCH 29.6 pg (26-34) MCHC 32.2 g/dl (32-36) RDW 14.6 H % (11.5-14.5) Plt Count 358 k/mm3 (150-375) MPV 9.0 fl (7.4-10.4) Immature Gran % (Auto) 0.6 H % (0-0.5) Neut % (Auto) 60.8 % (45.5-73.1) Lymph % (Auto) 24.3 % (18.3-44.2) Rock % (Auto) 10.7 H % (2.6-8.5) Eos % (Auto) 3.2 % (0-4.4) Baso % (Auto) 0.4 % (0.2-1.2) Lymph # (Auto) 2.83 K/mm3 (0.9-3.2) Rock # (Auto) 1.2 H K/mm3 (0.1-0.6) Eos # (Auto) 0.4 H K/mm3 (0-0.3) Baso # (Auto) 0.1 K/mm3 (0.0-0.1) Abs Immat Gran (auto) 0.07 H K/mm3 (0.00-0.031) Absolute Neuts (auto) 7.1 H K/mm3 (1.3-6.7) Absolute Nucleated RBC 0.000 K/mm3 (0.0-0.012) Nucleated RBC % 0.0 % (0.0-0.2) Sodium 138 mmol/L (137-145) Pota
--- NOTE | 2024-05-14 10:20 | SUR.PREOP ---
James made aware of patient receiving two antibiotics on the medical floor- patient does not require antibiotics prior to PEG placement- order for ancef canceled.
[2024-05-14] MEDS: LACTATED RINGERS 1,000 ML 150 ML IV CONT (10:23)
--- NOTE | 2024-05-14 10:27 | PCSTNOTE ---
The patient treatment was not able to be completed on 05/14 due to patient being off the floor for g-tube placement. Will plan to continue treatment per plan of care.
[2024-05-14 11:13] LABS: Glucose Point of Care 93 mg/dl (65-105)
[2024-05-14 12:07] LABS: Glucose Point of Care 99 mg/dl (65-105)
[2024-05-14] MEDS: KETOROLAC 15 MG/ML VIAL (*BKC) IV PUSH (14:10)
[2024-05-14] MEDS: AMOXICILLIN/CLAVULANATE K 875-125 MG TAB 1 TABLET PO (18:24)
[2024-05-14 18:30] LABS: Glucose Point of Care 91 mg/dl (65-105)
[2024-05-14] MEDS: MIRTAZAPINE 15 MG TABLET FEED TUBE (20:45)
[2024-05-14 23:25] LABS: Glucose Point of Care 120 mg/dl (65-105)
[2024-05-15] VITALS (11 sets, daily range): BP systolic 112–142; BP diastolic 69–86; PULSE 60–78; RESP 14–18; TEMP 36.2–36.4; O2SAT 95–99
[2024-05-15 05:25] LABS: Glucose Point of Care 154 mg/dl (65-105)
[2024-05-15 05:43] LABS: Basophils Percent Auto 0.4 % (0.2-1.2); Eosinophils Absolute Auto 0.4 K/mm3 (0-0.3); Eosinophils Percent Auto 4.1 % (0-4.4); Hematocrit 30.5 % (42.0-52.0); Hemoglobin 9.6 g/dL (14.0-18.0); Immature Granulocyte Percent A 1.1 % (0-0.5); Lymphocytes Absolute Auto 2.47 K/mm3 (0.9-3.2); Lymphocytes Percent Auto 26.7 % (18.3-44.2); Mean Corpuscular HGB Conc 31.5 g/dl (32-36); Mean Corpuscular Hemoglobin 29.4 pg (26-34); Mean Corpuscular Volume 93.3 fl (80-100); Mean Platelet Volume 8.8 fl (7.4-10.4); Monocytes Percent Auto 10.4 % (2.6-8.5); Neutrophils Absolute Auto 5.3 K/mm3 (1.3-6.7); Neutrophils Percent Auto 57.3 % (45.5-73.1); Platelet Count Result 319 k/mm3 (150-375); Red Blood Count 3.27 M/mm3 (4.6-6.20); Red Cell Distribution Width 14.7 % (11.5-14.5); White Blood Count 9.3 K/mm3 (4.5-10.0)
[2024-05-15 05:54] LABS: Alanine Aminotransferase 32 U/L (6-50); Albumin Level 3.3 g/dL (3.5-5.1); Alkaline Phosphatase 121 U/L (38-126); Anion Gap 6 mmol/L (4-12); Aspartate Amino Transferase 35 U/L (17-59); Bilirubin,Total 0.6 mg/dL (0.2-1.3); Blood Urea Nitrogen 26 mg/dL (9-20); Calcium 8.4 mg/dL (8.4-10.2); Carbon Dioxide 28 mmol/L (22-30); Chloride 104 mmol/L (98-107); Estimated CRCL calculation 43 ml/min; Estimated Glomerular Filt Rate 46; Glucose 152 mg/dL (65-110); Phosphorus 3.7 mg/dL (2.5-4.5); Potassium 3.8 mmol/L (3.4-5.0); Sodium 138 mmol/L (137-145)
[2024-05-15] MEDS: AZITHROMYCIN 250 MG TABLET 500 MG FEED TUBE (08:30)
[2024-05-15] MEDS: ATORVASTATIN 40 MG TABLET FEED TUBE (08:30)
[2024-05-15] MEDS: AMOXICILLIN/CLAVULANATE K 875-125 MG TAB 1 TABLET PO ×2 (08:30→20:53)
[2024-05-15] MEDS: FERROUS SULFATE LIQUID 325 MG/7.4 ML ELIXIR FEED TUBE ×2 (08:31→16:40)
[2024-05-15] MEDS: FINASTERIDE 5 MG TABLET FEED TUBE (08:31)
[2024-05-15] MEDS: FUROSEMIDE 20 MG TABLET FEED TUBE ×2 (08:31→16:40)
[2024-05-15] MEDS: METOPROLOL TARTRATE 50 MG TAB FEED TUBE ×2 (08:31→20:53)
[2024-05-15] MEDS: ACETAMINOPHEN ELIXIR 325 MG/10.15 ML UDC 650 MG FEED TUBE ×2 (08:32→16:47)
--- NOTE | 2024-05-15 08:38 | PM.IMPN ---
Progress Note: A&P Assessment and Plan (1) Aspiration pneumonia: Qualifiers: Aspiration pneumonia type: unspecified Code(s): J69.0 - Pneumonitis due to inhalation of food and vomit Status: Acute Assessment and Plan: episode of hypoxia and bradycardia at [facility] at [facility] patient failed modified barium swallow all consistencies of food on 05/10 recent stroke esophageal weakness vs [place] Susana diverticulum seems to be the cause aspiration initiate IV antibiotics placement NG tube, begin tube feedings as directed by dietitian after NG placement verification speech therapy consulted for swallowing exercises IV fluids until patient is at goal with tube feeds gastroenterology consult on Tuesday tube feeds will be held midnight - wbc 11.6-monitor -no cough or sob 05/15- peg tube in place now- tube feeds resumed - ok to give meds through peg tube- on antibiotics now PO (2) CVA (cerebral vascular accident): Code(s): I63.9 - Cerebral infarction, unspecified Status: Acute Assessment and Plan: Recent admission to [place], discovered acute left basal ganglia infarct by MRI while admitted as well as multiple old chronic areas of stroke Was at [facility] the last 4 days for therapy (3) Dysphagia: Qualifiers: Dysphagia type: esophageal phase Qualified Code(s): R13.19 - Other dysphagia Code(s): R13.10 - Dysphagia, unspecified Status: Acute Assessment and Plan: see above 05/12: NG accidently dislodged this morning, IR reinserted. 05/13: Patient very frustrated with NPO Status. Wonder if we can reattempt MBS?? 05/14- Gi FOLLOWING- SEEN THIS AM 05/15- tube feeds in place- still working with speech therapy (4) PAF (paroxysmal atrial fibrillation): Code(s): I48.0 - Paroxysmal atrial fibrillation Status: Acute Assessment and Plan: history of paroxysmal atrial fibrillation as well as multiple areas CVA on MRI Eliquis will be held until PEG tube placement telemetry monitoring ordered as patient had severe episode of bradycardia at [facility] resume metoprolol for rate control by feeding tube 05/14 - pt is on lovenox- which is held- home eliquis is held as well per active orders review (5) CKD (chronic kidney disease): Code(s): N18.9 - Chronic kidney disease, unspecified Status: Acute Assessment and Plan: patient appears to be near baseline estimated GFR 50 maintain adequate hydration via feeding tube/flushes and/or IV fluids when NPO monitor daily labs 05/12: Cr 1.3, GFR 55 (6) Chronic anemia: Code(s): D64.9 - Anemia, unspecified Status: Acute Assessment and Plan: stable, patient appears to be at baseline monitor daily labs Plan PEG placed today Time Spent With Patient Time with patient: 25 - 35 minutes Subjective Date/time seen: 05/15/24 08:38 Interval history: 05/15 seen and examined. Peg tube in place now, tube feeds going. Working with care coordination for anticipated discharge with tube feeds and home health. Review of Systems Review of Systems: All systems reviewed & are unremarkable except as noted in HPI and below Exam Narrative: GENERAL: Awake alert interactive, mildly confused which family is baseline, no acute distress. Patient frustrated about NPO status HEAD: Normocephalic, atraumatic. EYES: PERRLA and EOMI. ENT: Nares clear, no rhinorrhea or epistaxis. Mucous membranes moist. NG tube in place NECK: Supple. CHEST: Bibasilar crackles, no respiratory distress HEART: Regular rate and rhythm. Normal peripheral pulses. ABDOMEN: Soft, nontender, nondistended, normal active bowel sounds. PEG tube- clamped-dressing c/d/i EXTREMITIES: Normal range of motion. No edema. SKIN: Warm, dry, no rash. NEURO: Alert and generally oriented. No unilateral weakness or sensory deficits PSYCH: Normal mood an
--- NOTE | 2024-05-15 09:20 | PC.NURSE ---
Holly Hernández notified of peg site bleeding and changed last night ans this am. Yuri held this am
--- NOTE | 2024-05-15 10:37 | PCNFU ---
Nutrition Follow-Up Complete: Inability to meet nutrition needs PO related to dysphagia as evidenced by swallowing difficulty, failed swallow study, need for full tube feeding Goal:Meet estimated nutrition needs Pt current nutrition is NPO, Tube feeding: Jevity 1.5 @ 50ml/hr to total 1650kcals, 70g protein, 836ml free water. Nutrition recommendation: Continue with current plan of care and advance tube feeding rate to 55ml/hr Last recorded weight is 73.3 kg. Bowel Motility: +BM 05/13 Labs Reviewed: Hgb:9.6, HCT:30.5, Alb:3.3, GFR:46, BUN:26, Cr:1.5, Glu:152 Meds Noted: lovenox, lasix, novolog, remeron, protonix Skin: no skin issues noted Additional Notes: Pt continues on a tube feeding, per recommendations. Tolerating well. Agree with orders. Advance tube feeding rate to 55ml/hr per RD recommendation following PEG placement. Monitoring tolerance, labs, weights, bowel movements, swallow ability Follow up Tuesday and Tuesday per policy
--- NOTE | 2024-05-15 10:41 | PCDIET ---
Advance tube feeding to rate of 55ml/hr recommendation
[2024-05-15 12:05] LABS: Glucose Point of Care 146 mg/dl (65-105)
--- NOTE | 2024-05-15 12:29 | PCDIET ---
BOLUS TUBE FEEDING RECOMMENDATIONS: Jevity 1.5: BOLUS 300 ml QID with water flushes 200 ml QID with each bolus. Total 1800 kcal (~99% EER), 77 g protein, 912 ml free water with formula. Total water with flushes: 1712 ml/day
--- NOTE | 2024-05-15 15:47 | PC.NURSE ---
Dr James Roy notified that patient had bleeding around peg tube site thia am and saturated a drain sponge. No more bleeding since this am.
--- NOTE | 2024-05-15 16:04 | WPDGIPROGNO ---
Progress Note: A&P Assessment and Plan (1) Aspiration pneumonia: Qualifiers: Aspiration pneumonia type: unspecified Code(s): J69.0 - Pneumonitis due to inhalation of food and vomit Status: Acute Assessment and Plan: on treatment s/p peg placement tolerating tube feeding (2) Dysphagia: Qualifiers: Dysphagia type: esophageal phase Qualified Code(s): R13.19 - Other dysphagia Code(s): R13.10 - Dysphagia, unspecified Status: Acute (3) CVA (cerebral vascular accident): Code(s): I63.9 - Cerebral infarction, unspecified Status: Acute Subjective Date/time seen: 05/15/24 16:04 Interval history: tolerating tube feeding at 50 ml/h noted oozing from gastrostomy but resolved- lovenox held Review of Systems Review of Systems: All systems reviewed & are unremarkable except as noted in HPI and below Exam Const: General: comfortable and no acute distress HENMT: Face/Nose/Sinus: Normal nares present Eyes: General: appearance normal, both eyes and all related structures Neck: Neck: supple Resp: Auscultation: no wheezes Other: less rhonchi Cardio: Rate: regular rate Rhythm: regular rhythm GI: Inspection: non-distended GI Palp: Yes Soft to palpation and No Tenderness to palpation present (GI) Auscultation: normal bowel sounds Other: g-tube in place Skin: General skin exam: normal color Neuro: Speech: normal speech Motor exam (neuro): 5/5 motor strength present throughout Extrem: General: normal to inspection Psych: Affect: Anxious affect present Objective Data Vital Signs Vital Signs: Vital Signs - 24 hr 05/14/24 20:13 05/14/24 20:45 05/14/24 20:00 Temperature 97.5 F L Pulse Rate 74 76 66 Respiratory Rate 18 Blood Pressure 147/107 H Pulse Oximetry 100 Oxygen Delivery 05/15/24 05:25 05/15/24 00:00 05/15/24 04:00 Temperature 97.2 F L Pulse Rate 69 65 78 Respiratory Rate 16 Blood Pressure 142/86 H Pulse Oximetry 95 Oxygen Delivery 05/15/24 08:00 05/15/24 08:31 05/15/24 08:00 Temperature Pulse Rate 72 70 Respiratory Rate Blood Pressure Pulse Oximetry 95 Oxygen Delivery Room Air 05/15/24 12:00 Temperature Pulse Rate 60 Respiratory Rate Blood Pressure Pulse Oximetry Oxygen Delivery Intake/Output Intake/Output: Intake & Output 05/12/24 05/13/24 05/14/24 05/15/24 23:59 23:59 23:59 23:59 Intake Total 1819 320 250.0 Output Total 1800 2725 1827 600 Balance 19 -7613 -1577.0 -600 Meds/Results Medications: Active Medications Generic Name Dose Route Start Last Admin Trade Name Freq PRN Reason Stop Dose Admin Acetaminophen 650 mg 05/11/24 16:03 05/15/24 08:32 Acetaminophen Elixir 325 Mg/10.15 Ml Udc FEED TUBE 650 mg Q4H PRN Administration Fever or Pain Rated 1-6 Hydrocodone Bitart/Acetaminophen 1 tab 05/11/24 16:01 Hydrocodone/Acetaminophen (*Crx) 5-325 Mg Tablet FEED TUBE Q6H PRN Pain Rated 7-10 Amoxicillin/Clavulanate Potassium 1 tablet 05/14/24 18:30 05/15/24 08:30 Amoxicillin/Clavulanate K 875-125 Mg Tab PO 05/18/24 21:01 1 tablet Q12HR BASSEM Administration Atorvastatin Calcium 40 mg 05/12/24 09:00 05/15/24 08:30 Atorvastatin 40 Mg Tablet FEED TUBE 40 mg DAILY BASSEM Administration Azithromycin 500 mg 05/12/24 09:00 05/15/24 08:30 Azithromycin 250 Mg Tablet FEED TUBE 05/16/24 09:01 500 mg DAILY BASSEM Administration Dextrose 12.5 gm 05/11/24 13:33 Dextrose 50% 25 Gm/50 Ml Syringe IV PUSH PRN PRN Hypoglycemia Protocol Enoxaparin Sodium 75 mg 05/11/24 21:00 05/15/24 09:19 Enoxaparin 80 Mg/0.8 Ml Syringe SUB-Q Not Given Q12HR BASSEM Ferrous Sulfate 325 mg 05/11/24 17:00 05/15/24 08:31 Ferrous Sulfate Liquid 325 Mg/7.4 Ml Elixir FEED TUBE 325 mg BID BASSEM Administration Finasteride 5 mg 05/12/24 09:00 05/15/24 08:31 Finasteride 5 Mg Ta
[2024-05-15 18:34] LABS: Glucose Point of Care 156 mg/dl (65-105)
[2024-05-15 20:35] LABS: Glucose Point of Care 144 mg/dl (65-105)
[2024-05-15] MEDS: MIRTAZAPINE 15 MG TABLET FEED TUBE (20:54)
[2024-05-15 23:34] LABS: Glucose Point of Care 127 mg/dl (65-105)
[2024-05-16] VITALS (11 sets, daily range): BP systolic 98–172; BP diastolic 62–78; PULSE 58–71; RESP 12–18; TEMP 36.6–36.8; O2SAT 98–100
[2024-05-16 05:22] LABS: Basophils Absolute Auto 0.1 K/mm3 (0.0-0.1); Basophils Percent Auto 0.4 % (0.2-1.2); Eosinophils Absolute Auto 0.4 K/mm3 (0-0.3); Eosinophils Percent Auto 3.7 % (0-4.4); Hematocrit 30.5 % (42.0-52.0); Hemoglobin 9.5 g/dL (14.0-18.0); Immature Granulocyte Percent A 1.7 % (0-0.5); Lymphocytes Absolute Auto 2.41 K/mm3 (0.9-3.2); Lymphocytes Percent Auto 20.2 % (18.3-44.2); Mean Corpuscular HGB Conc 31.1 g/dl (32-36); Mean Corpuscular Hemoglobin 29.3 pg (26-34); Mean Corpuscular Volume 94.1 fl (80-100); Mean Platelet Volume 9.4 fl (7.4-10.4); Monocytes Absolute Auto 1.2 K/mm3 (0.1-0.6); Monocytes Percent Auto 10.1 % (2.6-8.5); Neutrophils Absolute Auto 7.6 K/mm3 (1.3-6.7); Neutrophils Percent Auto 63.9 % (45.5-73.1); Platelet Count Result 352 k/mm3 (150-375); Red Blood Count 3.24 M/mm3 (4.6-6.20); Red Cell Distribution Width 14.8 % (11.5-14.5); White Blood Count 11.9 K/mm3 (4.5-10.0)
[2024-05-16 05:41] LABS: Alanine Aminotransferase 32 U/L (6-50); Albumin Level 3.3 g/dL (3.5-5.1); Alkaline Phosphatase 119 U/L (38-126); Anion Gap 8 mmol/L (4-12); Aspartate Amino Transferase 36 U/L (17-59); Bilirubin,Total 0.5 mg/dL (0.2-1.3); Blood Urea Nitrogen 33 mg/dL (9-20); Calcium 8.4 mg/dL (8.4-10.2); Carbon Dioxide 28 mmol/L (22-30); Chloride 103 mmol/L (98-107); Estimated CRCL calculation 46 ml/min; Estimated Glomerular Filt Rate 50; Glucose 139 mg/dL (65-110); Magnesium 2.1 mg/dL (1.6-2.3); Phosphorus 3.7 mg/dL (2.5-4.5); Potassium 3.8 mmol/L (3.4-5.0); Sodium 139 mmol/L (137-145)
[2024-05-16 05:42] LABS: Glucose Point of Care 141 mg/dl (65-105)
[2024-05-16] MEDS: AZITHROMYCIN 250 MG TABLET 500 MG FEED TUBE (08:42)
[2024-05-16] MEDS: AMOXICILLIN/CLAVULANATE K 875-125 MG TAB 1 TABLET PO ×2 (08:42→21:52)
[2024-05-16] MEDS: FERROUS SULFATE LIQUID 325 MG/7.4 ML ELIXIR FEED TUBE (08:42)
[2024-05-16] MEDS: FUROSEMIDE 20 MG TABLET FEED TUBE (08:42)
[2024-05-16] MEDS: FINASTERIDE 5 MG TABLET FEED TUBE (08:42)
[2024-05-16] MEDS: METOPROLOL TARTRATE 50 MG TAB FEED TUBE ×2 (08:42→21:52)
[2024-05-16] MEDS: ATORVASTATIN 40 MG TABLET FEED TUBE (08:42)
--- NOTE | 2024-05-16 08:56 | PC.NURSE ---
PEG tube dressing changed, moderate amount of blood noted to old dressing. Yuri held this AM at this time
[2024-05-16 11:35] LABS: Glucose Point of Care 100 mg/dl (65-105)
--- NOTE | 2024-05-16 12:06 | PC.NURSE ---
OK to stop continuous feedings as patient is going home on bolus feeds per Dr Walters
--- NOTE | 2024-05-16 14:59 | PM.IMPN ---
Progress Note: A&P Assessment and Plan (1) Aspiration pneumonia: Qualifiers: Aspiration pneumonia type: unspecified Code(s): J69.0 - Pneumonitis due to inhalation of food and vomit Status: Acute Assessment and Plan: episode of hypoxia and bradycardia at [facility] patient failed modified barium swallow all consistencies of food on 05/10 recent stroke esophageal weakness vs [place] diverticulum seems to be the cause aspiration initiate IV antibiotics placement NG tube, begin tube feedings as directed by dietitian after NG placement verification speech therapy consulted for swallowing exercises IV fluids until patient is at goal with tube feeds gastroenterology consult on Tuesday tube feeds will be held midnight - wbc 11.6-monitor -no cough or sob 05/15- peg tube in place now- tube feeds resumed - ok to give meds through peg tube- on antibiotics now PO assuming care on 05/16: Tube feeds switched to 300 cc bolus q.i.d.. Currently tolerating (2) CVA (cerebral vascular accident): Code(s): I63.9 - Cerebral infarction, unspecified Status: Acute Assessment and Plan: Recent admission to [place], discovered acute left basal ganglia infarct by MRI while admitted as well as multiple old chronic areas of stroke Was at [facility] the last 4 days for therapy (3) Dysphagia: Qualifiers: Dysphagia type: esophageal phase Qualified Code(s): R13.19 - Other dysphagia Code(s): R13.10 - Dysphagia, unspecified Status: Acute Assessment and Plan: see above 05/12: NG accidently dislodged this morning, IR reinserted. 05/13: Patient very frustrated with NPO Status. Wonder if we can reattempt MBS?? 05/14- Gi FOLLOWING- SEEN THIS AM 05/15- tube feeds in place- still working with speech therapy (4) PAF (paroxysmal atrial fibrillation): Code(s): I48.0 - Paroxysmal atrial fibrillation Status: Acute Assessment and Plan: history of paroxysmal atrial fibrillation as well as multiple areas CVA on MRI Eliquis will be held until PEG tube placement telemetry monitoring ordered as patient had severe episode of bradycardia at [facility] resume metoprolol for rate control by feeding tube 05/14 - pt is on lovenox- which is held- home eliquis is held as well per active orders review (5) CKD (chronic kidney disease): Code(s): N18.9 - Chronic kidney disease, unspecified Status: Acute Assessment and Plan: patient appears to be near baseline estimated GFR 50 maintain adequate hydration via feeding tube/flushes and/or IV fluids when NPO monitor daily labs 05/12: Cr 1.3, GFR 55 (6) Chronic anemia: Code(s): D64.9 - Anemia, unspecified Status: Acute Assessment and Plan: stable, patient appears to be at baseline monitor daily labs Plan 69-year-old male with PMH multiple CVAs, chronic indwelling Bosch catheter, hypertension, hyperlipidemia, [id number] borderline diabetes paroxysmal atrial fibrillation on Eliquis was recently discharged on 03/22/2024 to [place] [facility] due to weakness. Presented and admitted again on 05/11 as he was found to have weakness with an episode of bradycardia and hypoxia. Currently on Augmentin for pneumonia/pneumonitis. WBC count mildly elevated. Will need to hold another day to trend this and check procalcitonin. Also monitor kidney function. Currently on Lovenox b.i.d. dosing and Eliquis is on hold. Need to monitor as nursing reports he is having significant bleeding from the PEG tube insertion site. However, consumer loan underwriter's physical exam did not note any blood soaked in the dressing, they were recently changed at that time. Monitor hemoglobin as well. F/E/N: Tube feed bolus dosing 300 cc q.i.d. GI prophylaxis: Not indicated DVT prophylaxis: Lovenox b.i.d., on Eliquis RESOURCE ENGINEER Lines: Peripheral IV, chronic indwelling F
--- NOTE | 2024-05-16 17:44 | WPDGIPROGNO ---
Progress Note: A&P Assessment and Plan (1) Aspiration pneumonia: Qualifiers: Aspiration pneumonia type: unspecified Code(s): J69.0 - Pneumonitis due to inhalation of food and vomit Status: Acute Assessment and Plan: on treatment s/p peg placement tolerating tube feeding will follow as needed (2) Dysphagia: Qualifiers: Dysphagia type: esophageal phase Qualified Code(s): R13.19 - Other dysphagia Code(s): R13.10 - Dysphagia, unspecified Status: Acute (3) CVA (cerebral vascular accident): Code(s): I63.9 - Cerebral infarction, unspecified Status: Acute Subjective Date/time seen: 05/16/24 17:44 Interval history: no events and has been tolerating tube feeding Review of Systems Review of Systems: All systems reviewed & are unremarkable except as noted in HPI and below Exam Const: General: comfortable and no acute distress HENMT: Face/Nose/Sinus: Normal nares present Eyes: General: appearance normal, both eyes and all related structures Neck: Neck: supple Resp: Auscultation: no wheezes Other: less rhonchi Cardio: Rate: regular rate Rhythm: regular rhythm GI: Inspection: non-distended GI Palp: Yes Soft to palpation and No Tenderness to palpation present (GI) Auscultation: normal bowel sounds Other: g-tube in place Skin: General skin exam: normal color Neuro: Speech: normal speech Motor exam (neuro): 5/5 motor strength present throughout Extrem: General: normal to inspection Psych: Affect: Anxious affect present Objective Data Vital Signs Vital Signs: Vital Signs - 24 hr 05/15/24 20:53 05/15/24 21:15 05/15/24 20:00 Temperature 97.6 F Pulse Rate 66 64 63 Respiratory Rate 14 Blood Pressure 112/69 Pulse Oximetry 99 Oxygen Delivery 05/16/24 00:00 05/16/24 04:00 05/16/24 05:46 Temperature 98.0 F Pulse Rate 65 66 67 Respiratory Rate 12 Blood Pressure 172/78 H Pulse Oximetry 99 Oxygen Delivery 05/16/24 11:35 05/16/24 08:00 05/16/24 14:00 Temperature 98.3 F Pulse Rate 65 65 58 L Respiratory Rate 12 18 Blood Pressure 98/62 L 131/71 Pulse Oximetry 100 100 100 Oxygen Delivery Room Air Intake/Output Intake/Output: Intake & Output 05/13/24 05/14/24 05/15/24 05/16/24 23:59 23:59 23:59 23:59 Intake Total 320 250.0 1253 550 Output Total 2725 1827 1200 2050 Balance -2405 -1577.0 53 -1500 Meds/Results Medications: Active Medications Generic Name Dose Route Start Last Admin Trade Name Freq PRN Reason Stop Dose Admin Acetaminophen 650 mg 05/11/24 16:03 05/15/24 16:47 Acetaminophen Elixir 325 Mg/10.15 Ml Udc FEED TUBE 650 mg Q4H PRN Administration Fever or Pain Rated 1-6 Hydrocodone Bitart/Acetaminophen 1 tab 05/11/24 16:01 Hydrocodone/Acetaminophen (*Crx) 5-325 Mg Tablet FEED TUBE Q6H PRN Pain Rated 7-10 Amoxicillin/Clavulanate Potassium 1 tablet 05/14/24 18:30 05/16/24 08:42 Amoxicillin/Clavulanate K 875-125 Mg Tab PO 05/18/24 21:01 1 tablet Q12HR BASSEM Administration Atorvastatin Calcium 40 mg 05/12/24 09:00 05/16/24 08:42 Atorvastatin 40 Mg Tablet FEED TUBE 40 mg DAILY BASSEM Administration Dextrose 12.5 gm 05/11/24 13:33 Dextrose 50% 25 Gm/50 Ml Syringe IV PUSH PRN PRN Hypoglycemia Protocol Enoxaparin Sodium 75 mg 05/11/24 21:00 05/16/24 11:36 Enoxaparin 80 Mg/0.8 Ml Syringe SUB-Q Not Given Q12HR BASSEM Ferrous Sulfate 325 mg 05/11/24 17:00 05/16/24 08:42 Ferrous Sulfate Liquid 325 Mg/7.4 Ml Elixir FEED TUBE 325 mg BID BASSEM Administration Finasteride 5 mg 05/12/24 09:00 05/16/24 08:42 Finasteride 5 Mg Tablet FEED TUBE 5 mg QAM BASSEM Administration Furosemide 20 mg 05/11/24 17:00 05/16/24 08:42 Furosemide 20 Mg Tablet FEED TUBE 20 mg BID BASSEM Administration Glucagon 1 mg 05/11/24 13:33 Glucagon For Inj 1 Mg Vial IM PRN PRN
--- NOTE | 2024-05-16 17:46 | PC.NURSE ---
First bolus feed administered @ 1700. Patient tolerated well
[2024-05-16] MEDS: MIRTAZAPINE 15 MG TABLET FEED TUBE (21:52)
[2024-05-16 23:37] LABS: Glucose Point of Care 161 mg/dl (65-105)
[2024-05-17] VITALS (8 sets, daily range): BP systolic 129–145; BP diastolic 65–66; PULSE 65–67; RESP 16; TEMP 36.4; O2SAT 98–100
[2024-05-17 05:14] LABS: Basophils Absolute Auto 0.1 K/mm3 (0.0-0.1); Basophils Percent Auto 0.6 % (0.2-1.2); Eosinophils Absolute Auto 0.4 K/mm3 (0-0.3); Eosinophils Percent Auto 3.4 % (0-4.4); Hematocrit 32.7 % (42.0-52.0); Hemoglobin 9.8 g/dL (14.0-18.0); Immature Granulocyte Absolute 0.24 K/mm3 (0.00-0.031); Immature Granulocyte Percent A 1.8 % (0-0.5); Lymphocytes Absolute Auto 3.02 K/mm3 (0.9-3.2); Lymphocytes Percent Auto 23.1 % (18.3-44.2); Mean Corpuscular Volume 96.7 fl (80-100); Mean Platelet Volume 9.2 fl (7.4-10.4); Monocytes Absolute Auto 1.8 K/mm3 (0.1-0.6); Monocytes Percent Auto 13.4 % (2.6-8.5); Neutrophils Absolute Auto 7.5 K/mm3 (1.3-6.7); Neutrophils Percent Auto 57.7 % (45.5-73.1); Platelet Count Result 347 k/mm3 (150-375); Red Blood Count 3.38 M/mm3 (4.6-6.20); Red Cell Distribution Width 14.8 % (11.5-14.5); White Blood Count 13.1 K/mm3 (4.5-10.0)
[2024-05-17 05:28] LABS: Alanine Aminotransferase 39 U/L (6-50); Albumin Level 3.6 g/dL (3.5-5.1); Alkaline Phosphatase 119 U/L (38-126); Anion Gap 8 mmol/L (4-12); Aspartate Amino Transferase 42 U/L (17-59); Bilirubin,Total 0.6 mg/dL (0.2-1.3); Blood Urea Nitrogen 33 mg/dL (9-20); Calcium 8.7 mg/dL (8.4-10.2); Carbon Dioxide 27 mmol/L (22-30); Chloride 104 mmol/L (98-107); Estimated CRCL calculation 49 ml/min; Estimated Glomerular Filt Rate 55; Glucose 99 mg/dL (65-110); Magnesium 2.3 mg/dL (1.6-2.3); Phosphorus 3.9 mg/dL (2.5-4.5); Potassium 4.3 mmol/L (3.4-5.0); Sodium 139 mmol/L (137-145)
[2024-05-17 05:32] LABS: Glucose Point of Care 99 mg/dl (65-105)
[2024-05-17 06:03] LABS: Procalcitonin 0.2 ng/mL
[2024-05-17] MEDS: FERROUS SULFATE LIQUID 325 MG/7.4 ML ELIXIR FEED TUBE ×2 (09:12→17:22)
[2024-05-17] MEDS: METOPROLOL TARTRATE 50 MG TAB FEED TUBE (09:12)
[2024-05-17] MEDS: ATORVASTATIN 40 MG TABLET FEED TUBE (09:12)
[2024-05-17] MEDS: FUROSEMIDE 20 MG TABLET FEED TUBE ×2 (09:13→17:22)
[2024-05-17] MEDS: AMOXICILLIN/CLAVULANATE K 875-125 MG TAB 1 TABLET PO (09:13)
[2024-05-17] MEDS: FINASTERIDE 5 MG TABLET FEED TUBE (09:13)
[2024-05-17] MEDS: ENOXAPARIN 80 MG/0.8 ML SYRINGE 75 MG SUB-Q (09:28)
--- NOTE | 2024-05-17 11:08 | PC.NURSE ---
Addendum entered by Esha Pete RN 05/17/24 18:59: DC papers faxed to [facility] at 1600 Addendum entered by Esha Pete RN 05/17/24 18:22: UPDATE: 1820 patient discharged home via daughter automobile. All supplies and paperwork sent with patient. Questions and concerns address and next point of contact emphasized as HHC and PCP. Original Note: Patient resting in bed for morning assessment. No drainage or blood on PEG tube dressing. Dressing changed and dated. No residual. Patient tolerated bolus, flush, and medications. No complaints of pain.
[2024-05-17 11:21] LABS: Glucose Point of Care 159 mg/dl (65-105)
--- NOTE | 2024-05-17 14:55 | PM.DS ---
DS: Admitting Diagnosis Discharge Date May 17, 2024 Admitting Diagnosis Dysphagia DS: Discharge Diagnosis Discharge Diagnosis (1) Dysphagia: Qualifiers: Dysphagia type: esophageal phase Qualified Code(s): R13.19 - Other dysphagia Code(s): R13.10 - Dysphagia, unspecified Status: Acute DS: Summary Hospital Course Hospital Course: 69-year-old male with PMH multiple CVAs, chronic indwelling Bosch catheter, hypertension, hyperlipidemia, [id number] borderline diabetes paroxysmal atrial fibrillation on Eliquis was recently discharged on 03/22/2024 to [place] [facility] due to weakness. Presented and admitted again on 05/11 as he was found to have weakness with an episode of bradycardia and hypoxia. PEG tube placed on 05/14/2024. Tolerating tube feed boluses. He is stable for discharge on 05/17/2024 to home with home health with assistance for tube feeds and therapy. For suspected pneumonitis/pneumonia. Patient was initially administered IV antibiotics and subsequently changed to Augmentin for total of 5 days of Augmentin. Patient denies shortness of breath, chest pain, pleuritic pain, cough, fever. He has leukocytosis of 13.1 without an elevation and procalcitonin. Hemodynamically stable therefore we agreed he would repeat CBC in 2 days. Also educated on signs of pneumonia or infection and indications to return to ER or notify PCP. Patient was agreeable to this plan. Time Spent with Patient Time attestation: Total time spent providing and/or coordinating discharge services: Exam Const: General: comfortable and no acute distress Eyes: Pupils: Equal, round and reactive pupils present Neck: Neck: supple Resp: Effort & Inspection: normal respiratory effort Auscultation: clear to auscultation bilaterally Cardio: Rate: regular rate Rhythm: regular rhythm GI: GI Palp: Yes Soft to palpation Extrem: General: no edema DS: Data Data Completed and Pending Completed studies during hospitalization: Pending at discharge 05/14/24 10:40 Surgical [PTH] Routine Labs on day of discharge: Labs from last 24 hours 05/17/24 05/17/24 05/17/24 11:17 05:29 04:40 WBC 13.1 H RBC 3.38 L Hgb 9.8 L Hct 32.7 L MCV 96.7 MCH 29.0 MCHC 30.0 L RDW 14.8 H Plt Count 347 MPV 9.2 Immature Gran % (Auto) 1.8 H Neut % (Auto) 57.7 Lymph % (Auto) 23.1 Angelina % (Auto) 13.4 H Eos % (Auto) 3.4 Baso % (Auto) 0.6 Lymph # (Auto) 3.02 Angelina # (Auto) 1.8 H Eos # (Auto) 0.4 H Baso # (Auto) 0.1 Abs Immat Gran (auto) 0.24 H Absolute Neuts (auto) 7.5 H Absolute Nucleated RBC 0.000 Nucleated RBC % 0.0 Sodium 139 Potassium 4.3 Chloride 104 Carbon Dioxide 27 Anion Gap 8 BUN 33 H Creatinine 1.30 Estim Creat Clear Calc 49 Estimated GFR 55 L Glucose 99 POC Capillary Glucose 159 H 99 Calcium 8.7 Phosphorus 3.9 Magnesium 2.3 Total Bilirubin 0.6 AST 42 ALT 39 Alkaline Phosphatase 119 Total Protein 7.0 Albumin 3.6 Procalcitonin 0.2 05/16/24 23:30 WBC RBC Hgb Hct MCV MCH MCHC RDW Plt Count MPV Immature Gran % (Auto) Neut % (Auto) Lymph % (Auto) Angelina % (Auto) Eos % (Auto) Baso % (Auto) Lymph # (Auto) Angelina # (Auto) Eos # (Auto) Baso # (Auto) Abs Immat Gran (auto) Absolute Neuts (auto) Absolute Nucleated RBC Nucleated RBC % Sodium Potassium Chloride Carbon Dioxide Anion Gap BUN Creatinine Estim Creat Clear Calc Estimated GFR Glucose POC Capillary Glucose 161 H Calcium Phosphorus Magnesium Total Bilirubin AST ALT Alkaline Phosphatase Total Protein Albumin Procalcitonin Discharge Plan Discharge Attending physician on discharge: Yenifer Walters Consulting providers: Moustapha Ibanez Discharging Clinician: Yenifer Walters Patient Disposition: Home Health Service
== END 2024-05-17 18:20 | disposition home health service (06) | DRG 179 ==
LOC: ANHED 05-11 04:24 → ANH3MEDSUR 05-11 05:47
PROVIDERS: General Practice; Internal Medicine Gastroenterology; Nurse Practitioner; Admitting Provider Internal Medicine; Emergency Provider Emergency Medicine; PCP Emergency Medicine; Visit Provider Internal Medicine
PROC: 0DH63UZ Insertion of Feeding Device into Stomach, Percutaneous Approach (ICD-10-PCS; CPT 43246; principal; 2024-05-14 16:30)
DX: J69.0 Pneumonitis due to inhalation of food and vomit (principal); I69.391 Dysphagia following cerebral infarction; D63.1 Anemia in chronic kidney disease; E78.5 Hyperlipidemia, unspecified; E11.22 Type 2 diabetes mellitus with diabetic chronic kidney disease; F17.210 Nicotine dependence, cigarettes, uncomplicated; I12.9 Hypertensive chronic kidney disease with stage 1 through stage 4 chronic kidney disease, or unspecified chronic kidney disease; I48.91 Unspecified atrial fibrillation; I48.0 Paroxysmal atrial fibrillation; N18.9 Chronic kidney disease, unspecified; N31.9 Neuromuscular dysfunction of bladder, unspecified; N40.0 Benign prostatic hyperplasia without lower urinary tract symptoms; R13.10 Dysphagia, unspecified; Z79.01 Long term (current) use of anticoagulants; Z90.49 Acquired absence of other specified parts of digestive tract
CPT/HCPCS: 36415; 43246; 71046; 80053; 81001; 82948; 83036; 83605; 83690; 83735; 84100; 84145; 85025; 85610; 85730; 87040; 87641; 88305; 92526; 92610; 93005; 96360; 96365; 96366; 96372; 96375; 97110; 97116; 97161; 97165; 97530; 97535; 99285; A9270; G0378; J1650; J1885; J2371; J2543; J2704; J3480; J7030; J7120

== ENCOUNTER 2024-08-24 10:29 | Inpatient (IN) | payer MEDICARE, OTHER, SELFPAY ==
[2024-08-24] VITALS (10 sets, daily range): BP systolic 99–146; BP diastolic 58–82; PULSE 63–84; RESP 13–23; TEMP 36.3–36.6; O2SAT 96–100
--- NOTE | ~2024-08-24 | US_ITS ---
EXAM: RENAL ULTRASOUND HISTORY: LEANDRO COMPARISON: 12/15/2021 FINDINGS: RIGHT KIDNEY: 11.2 x 6.3 x 4.9 cm. No hydronephrosis or bulky renal calculi. LEFT KIDNEY: 10.7 x 5.6 x 5.1 cm No hydronephrosis or renal calculi. BLADDER: Decompressed with a Bosch catheter, limiting its evaluation. IMPRESSION: No hydronephrosis or renal calculi. Findings suggesting medical renal disease. Atrophy of the bilateral kidneys when compared with previous study performed 05/03/2024 Reviewed, dictated and finalized at location A.
[2024-08-24 11:22] LABS: Add Urine Microscopic? YES; Appearance Urine Turbid (Clear); Bacteria Urine 4+ /hpf; Bilirubin Urine Negative (Negative); Blood Urine 1+ (Negative); Glucose Urine UA Negative (Negative); Ketones Urine Negative (Negative); Leukocyte Esterase Ur 3+ LEU/UL (Negative); Need Manual Microscopic Reviewed; Nitrate Urine Negative (Negative); Protein Urine 2+ mg/dL (Negative); RBC Urine 21-50 /hpf (0-2); Specific Grav Ur 1.015 (1.001-1.035); Squamous Epithelial Cell Urine Few /hpf (Few); Urobilinogen Urine 0.2 mg/dL (<2.0); WBC Urine >100 /hpf (0-3); pH Urine 8.5 (5.0-9.0)
[2024-08-24 11:23] LABS: Amorphous Sediment Urine Moderate; Color Urine Brown (Yellow)
[2024-08-24] MEDS: SODIUM CHLORIDE 0.9% IV 1,000 ML 999 ML IV CONT ×2 (11:50→12:33)
[2024-08-24 11:52] LABS: Basophils Percent Auto 0.3 % (0.2-1.2); Eosinophils Absolute Auto 0.3 K/mm3 (0-0.3); Eosinophils Percent Auto 3.4 % (0-4.4); Hematocrit 36.1 % (42.0-52.0); Hemoglobin 11.4 g/dL (14.0-18.0); Immature Granulocyte Absolute 0.06 K/mm3 (0.00-0.031); Immature Granulocyte Percent A 0.7 % (0-0.5); Lymphocytes Percent Auto 24.9 % (18.3-44.2); Mean Corpuscular HGB Conc 31.6 g/dl (32-36); Mean Corpuscular Hemoglobin 30.2 pg (26-34); Mean Corpuscular Volume 95.8 fl (80-100); Monocytes Absolute Auto 0.9 K/mm3 (0.1-0.6); Neutrophils Absolute Auto 5.6 K/mm3 (1.3-6.7); Neutrophils Percent Auto 60.7 % (45.5-73.1); Platelet Count Result 259 k/mm3 (150-375); Red Blood Count 3.77 M/mm3 (4.6-6.20); Red Cell Distribution Width 15.9 % (11.5-14.5); White Blood Count 9.2 K/mm3 (4.5-10.0)
[2024-08-24 12:00] LABS: Lactic Acid Reflex 2.4 mmol/L (0.7-2.0)
[2024-08-24 12:01] LABS: Alanine Aminotransferase 41 U/L (6-50); Albumin Level 3.3 g/dL (3.5-5.1); Alkaline Phosphatase 120 U/L (38-126); Anion Gap 8 mmol/L (4-12); Aspartate Amino Transferase 47 U/L (17-59); Bilirubin,Total 0.8 mg/dL (0.2-1.3); Blood Urea Nitrogen 53 mg/dL (9-20); Calcium 8.3 mg/dL (8.4-10.2); Carbon Dioxide 28 mmol/L (22-30); Chloride 101 mmol/L (98-107); Estimated CRCL calculation 26 ml/min; Estimated Glomerular Filt Rate 26; Glucose 198 mg/dL (65-110); Sodium 137 mmol/L (137-145)
--- NOTE | 2024-08-24 12:46 | WPDEDEXPGENP ---
HPI - General Ped General Chief complaint: Urogenital-Male Stated complaint: sent by UC UTI Time Seen by Provider: 08/24/24 11:04 Source: patient Mode of arrival: ambulatory Limitations: no limitations History of Present Illness HPI narrative: This is a 69-year-old male, with history of Related Data Home Medications Medication Instructions Recorded Confirmed tamsulosin 0.4 mg capsule 0.4 mg PO 1700 11/16/23 06/29/24 apixaban 5 mg tablet 5 mg PO BID 05/01/24 06/29/24 hydrocodone 5 mg-acetaminophen 325 1 tablet PO Q6H PRN Pain (Scale 05/11/24 06/29/24 mg tablet Score 4-6) Allergies Allergy/AdvReac Type Severity Reaction Status Date / Time No Known Allergies Allergy Mild Verified 08/24/24 10:55 [facility] Past Medical History Medical History (Updated 06/29/24 @ 13:35 by Gokul Ruff DO) Anxiety Arthritis Atrial fibrillation by electrocardiogram BPH loc w urin obs/LUTS CVA (cerebral vascular accident) left Basal ganglia Also seen were numerous chronic lacunar infarctions of the bilateral basal ganglia, left thalamus and [place] radiata.? History of CVA (cerebrovascular accident) without residual deficits numerous chronic lacunar infarctions of the bilateral basal ganglia, left thalamus and [place] radiata.? Hyperlipidemia Hypertension Indwelling Bosch catheter present Neurogenic bladder Non-insulin dependent diabetes mellitus Normocytic anemia Obstructive uropathy TIA (transient ischemic attack) Surgical History Surgical History History of appendectomy Family History Family History Father Cerebrovascular accident Social History Social History Social History: Has a daughter Smoking packs per day: 1 Smoking cigarettes per day: 20.0 Years smoked: 30 Smoking pack-years: 30.00 Smoking status: Current every day smoker Tobacco type: cigarettes Second hand tobacco smoke exposure: Yes Additional smoking assessment comments: pt states he started smoking when he got at the age of 39 Alcohol intake: former Drinks per week: 1 Alcohol use details: couple times a week (happy hour) Substance use: never Substance use type: marijuana Last use: MARIJUANA A COUPLE MONTHS AGO Do You Feel Safe in your Home?: Yes Lack of Transportation: No Lack of Food: Never True Current Housing: I Have Housing Concerned About Future Housing: No Difficulty Paying Gas/Electric Bills: No Difficulty Paying for Meds: No Currently Unemployed: No Education: High School Diploma/GED Difficulty w/ Childcare or Family Care: No Living arrangements: assisted living Spiritual care concerns: No Course Vital Signs Vital signs: Vital Signs Temperature 97.3 F L 08/24/24 10:35 Pulse Rate 73 08/24/24 10:35 Respiratory Rate 13 08/24/24 10:35 Blood Pressure 99/74 L 08/24/24 10:35 Pulse Oximetry 100 08/24/24 10:35 Oxygen Delivery Room Air 08/24/24 10:35 Temperature 97.3 F L 08/24/24 10:35 Pulse Rate 65 08/24/24 12:01 Respiratory Rate 22 H 08/24/24 12:01 Blood Pressure 125/77 08/24/24 12:01 Pulse Oximetry 100 08/24/24 12:01 Oxygen Delivery Room Air 08/24/24 10:35 Medical Decision Making Vital Signs Vital Signs: Vital Signs Temperature 97.3 F L 08/24/24 10:35 Pulse Rate 73 08/24/24 10:35 Respiratory Rate 13 08/24/24 10:35 Blood Pressure 99/74 L 08/24/24 10:35 Pulse Oximetry 100 08/24/24 10:35 Oxygen Delivery Room Air 08/24/24 10:35 Temperature 97.3 F L 08/24/24 10:35 Pulse Rate 65 08/24/24 12:01 Respiratory Rate 22 H 08/24/24 12:01 Blood Pressure 125/77 08/24/24 12:01 Pulse Oximetry 100 08/24/24 12:01 Oxygen Delivery Room Air 08/24/24 10:35 Lab Data 08/24/24 11:45 08/24/24 11:45 Labs
--- NOTE | 2024-08-24 12:48 | ED.MALEGU ---
HPI - Male Genitourinary General Chief complaint: Urogenital-Male Stated complaint: sent by UTI Time Seen by Provider: 08/24/24 11:04 Source: patient Mode of arrival: wheelchair Limitations: no limitations History of Present Illness HPI Narrative: This is a 69-year-old male, with history of AFib, CVA neurogenic bladder, who was instructed to come to the emergency department by his PCM with concerns for urinary tract infection. The patient states his home health nurse exchanges catheter 2 days ago. He was told that his UA was concerning for UTI. He was seen at an urgent care and found to have low blood pressure. He has hypertension and states his pressures typically high. The patient has no other complaints, including denying chest pain, shortness of breath, lightheadedness or loss of consciousness. He has no other complaints at this time. Related Data Home Medications Medication Instructions Recorded Confirmed tamsulosin 0.4 mg capsule 0.4 mg PO DAILY 11/16/23 08/24/24 apixaban 5 mg tablet 5 mg PO BID 05/01/24 08/24/24 bethanechol chloride 5 mg tablet 5 mg TID 08/24/24 08/24/24 Allergies Allergy/AdvReac Type Severity Reaction Status Date / Time No Known Allergies Allergy Mild Verified 08/24/24 10:55 Review of Systems Review of Systems: All systems reviewed & are unremarkable except as noted in HPI and below PMFSH Past Medical History Medical History Anxiety Arthritis BPH loc w urin obs/LUTS Chronic anemia CKD (chronic kidney disease) Combined systolic and diastolic congestive heart failure CVA (cerebral vascular accident) Per MRI on 03/20/2024, old infarcts in the bilateral basal ganglia Hyperlipidemia Hypertension Indwelling Bosch catheter present Neurogenic bladder Non-insulin dependent diabetes mellitus Normocytic anemia Obstructive uropathy PAF (paroxysmal atrial fibrillation) TIA (transient ischemic attack) Surgical History Surgical History History of appendectomy Family History Family History Father Cerebrovascular accident Social History Social History Social History: Has a daughter Smoking packs per day: 1 Smoking cigarettes per day: 20.0 Years smoked: 30 Smoking pack-years: 30.00 Smoking status: Current every day smoker Tobacco type: cigarettes Second hand tobacco smoke exposure: Yes Additional smoking assessment comments: pt states he started smoking when he got at the age of 39 Alcohol intake: former Drinks per week: 1 Alcohol use details: couple times a week (happy hour) Substance use: current Substance use type: marijuana Other substance usage details: smokes marijuana when friends bring it to him Last use: 08/22/2024 Do You Feel Safe in your Home?: Yes Lack of Transportation: No Lack of Food: Never True Current Housing: I Have Housing Concerned About Future Housing: No Difficulty Paying Gas/Electric Bills: No Difficulty Paying for Meds: No Currently Unemployed: No Education: High School Diploma/GED Difficulty w/ Childcare or Family Care: No Living arrangements: assisted living Spiritual care concerns: No Exam Narrative: GENERAL: Well-developed, well-nourished, and in no acute distress. HEAD: Normocephalic, atraumatic. EYES: PERRLA and EOMI. CHEST: Clear to auscultation. No respiratory distress. No wheezes rales or rhonchi HEART: Regular rate and rhythm. No murmur heard. Normal peripheral pulses. ABDOMEN: Soft, nontender, nondistended, normal active bowel sounds. Gastrostomy tube noted in the left upper quadrant that appears to be well healed appropriately positioned. : Normal external male genitalia, with Bosch catheter in place draining dark yellow urine EXTREMITIES: Normal range of mot
--- NOTE | 2024-08-24 12:51 | PM.IMHP ---
H&P: HPI History of Present Illness Date/Time: 08/24/24 12:51 Chief Complaint: Hypotension, Possible UTI Narrative: 69 y/o M presents here with hypotension and possible UTI with PMH of HTN, CVA, neurogenic bladder, atrial fibrillation, BPH, HTN, HLD, diabetes, and normocytic anemia. The patient presents here from a local urgent care where he initially sought evaluation of a possible UTI. Patient receives home health once every 2 weeks. At most recent visit on Tuesday (08/22) his home health nurse exchanged his Perdomo. During the exchange she became concerned the patient that the patient had a UTI. Patient went to a local urgent care today to be seen for this issue, upon arrival there it was noted that he had a low blood pressure which prompted them to send them to the emergency department for further evaluation. Initial blood pressure upon arrival was 99/74. The patient currently endorses reduced output in his perdomo bag starting today. States he has not fed himself through his g-tube over the last 2 days, but has eaten. The patient is unsure why he has a g-tube but reports the feedings were initially 4 times per day and have slowly been weaned down to none. Today, urine appears dark/brown. Denies abdominal pain, fever, chills, body aches. Also denying cough, shortness of breath, congestion, or rhinorrhea. Initial VS at presentation: 97.3? F, HR 73, RR 13, 99/74, and 100% on RA. ED workup showed: No leukocytosis, hemoglobin 11.4 (previously 9.8 on 05/17/2024), creatinine 2.5 and GFR 26 (previously 1.3 and GFR 55 on 05/17/2024), lactic 2.4, albumin 3.3, and UA consistent with UTI. Review of Systems Review of Systems: All systems reviewed & are unremarkable except as noted in HPI and below [facility] Past Medical History Medical History Anxiety Arthritis BPH loc w urin obs/LUTS Chronic anemia CKD (chronic kidney disease) Combined systolic and diastolic congestive heart failure CVA (cerebral vascular accident) Per MRI on 03/20/2024, old infarcts in the bilateral basal ganglia Hyperlipidemia Hypertension Indwelling Perdomo catheter present Neurogenic bladder Non-insulin dependent diabetes mellitus Normocytic anemia Obstructive uropathy PAF (paroxysmal atrial fibrillation) TIA (transient ischemic attack) Surgical History Surgical History History of appendectomy Family History Family History Father Cerebrovascular accident Social History Social History Social History: Has a daughter Smoking packs per day: 1 Smoking cigarettes per day: 20.0 Years smoked: 30 Smoking pack-years: 30.00 Smoking status: Current every day smoker Tobacco type: cigarettes Second hand tobacco smoke exposure: Yes Additional smoking assessment comments: pt states he started smoking when he got at the age of 39 Alcohol intake: former Drinks per week: 1 Alcohol use details: couple times a week (happy hour) Substance use: current Substance use type: marijuana Other substance usage details: smokes marijuana when friends bring it to him Last use: 08/22/2024 Do You Feel Safe in your Home?: Yes Lack of Transportation: No Lack of Food: Never True Current Housing: I Have Housing Concerned About Future Housing: No Difficulty Paying Gas/Electric Bills: No Difficulty Paying for Meds: No Currently Unemployed: No Education: High School Diploma/GED Difficulty w/ Childcare or Family Care: No Living arrangements: assisted living Spiritual care concerns: No Meds Home Medications and Allergies Home Medications Medication Instructions Recorded Confirmed Type tamsulosin 0.4 mg capsule 0.4 mg PO DAILY 11/16/23 08/24/24 History apixaban 5 mg tablet 5 mg PO BID 05/01/24 08/24/24 Hi
--- NOTE | 2024-08-24 13:11 | PC.NURSE ---
BestF leanne exchaged per Dr. Walter
[2024-08-24] MEDS: AMPICILLIN 1 GM/NS 50 ML 1 GM/50 ML BAG IVPB ×2 (13:24→21:24)
--- NOTE | 2024-08-24 14:02 | ADMGEN ---
This patient, Yvan Chau, was admitted to [facility] Surg Room 323-02. Patient/family oriented to hospital policies and general routines including ID bracelet, bed and alarms, visiting hours, pain management, procedures, bathroom and other care routines, personal items, smoking policy, room service/diet, and visiting hours. Information on how to activate the Rapid Response Team has been discussed. Patient/Family are encouraged to report perceived risks to care and to ask questions if they do not understand what they are told or what they should do.
[2024-08-24 14:48] LABS: Reflex Lactic Acid Yes or No Add Lactic
[2024-08-24 15:39] LABS: Procalcitonin 0.9 ng/mL
[2024-08-24] MEDS: SODIUM CHLORIDE 0.9% IV 1,000 ML 75 ML IV CONT (16:22)
[2024-08-24 16:27] LABS: Lactic Acid 1.8 mmol/L (0.7-2.0)
[2024-08-24] MEDS: BETHANECHOL CHLORIDE 5 MG TABLET FEED TUBE (17:52)
[2024-08-24 17:53] LABS: Glucose Point of Care 148 mg/dl (65-105)
[2024-08-24] MEDS: METOPROLOL TARTRATE 50 MG TAB FEED TUBE (21:28)
[2024-08-24] MEDS: MIRTAZAPINE 15 MG TABLET FEED TUBE (21:28)
[2024-08-24] MEDS: APIXABAN 5 MG TABLET FEED TUBE (21:28)
[2024-08-25 05:44] VITALS: BP 143/84; PULSE 74; RESP 19; TEMP 36; O2SAT 96
[2024-08-25 06:30] LABS: Basophils Percent Auto 0.3 % (0.2-1.2); Eosinophils Absolute Auto 0.3 K/mm3 (0-0.3); Eosinophils Percent Auto 3.3 % (0-4.4); Hemoglobin 10.7 g/dL (14.0-18.0); Immature Granulocyte Absolute 0.04 K/mm3 (0.00-0.031); Immature Granulocyte Percent A 0.4 % (0-0.5); Lymphocytes Absolute Auto 2.41 K/mm3 (0.9-3.2); Lymphocytes Percent Auto 26.7 % (18.3-44.2); Mean Corpuscular HGB Conc 31.5 g/dl (32-36); Mean Corpuscular Hemoglobin 30.3 pg (26-34); Mean Corpuscular Volume 96.3 fl (80-100); Mean Platelet Volume 9.7 fl (7.4-10.4); Monocytes Percent Auto 11.5 % (2.6-8.5); Neutrophils Absolute Auto 5.2 K/mm3 (1.3-6.7); Neutrophils Percent Auto 57.8 % (45.5-73.1); Platelet Count Result 223 k/mm3 (150-375); Red Blood Count 3.53 M/mm3 (4.6-6.20); Red Cell Distribution Width 15.9 % (11.5-14.5)
[2024-08-25 06:40] LABS: Hemoglobin A1C 6.6 % (<5.7)
[2024-08-25 06:42] LABS: Anion Gap 8 mmol/L (4-12); Blood Urea Nitrogen 51 mg/dL (9-20); Calcium 8.1 mg/dL (8.4-10.2); Carbon Dioxide 24 mmol/L (22-30); Chloride 110 mmol/L (98-107); Estimated CRCL calculation 26 ml/min; Estimated Glomerular Filt Rate 26; Glucose 124 mg/dL (65-110); Potassium 4.1 mmol/L (3.4-5.0); Sodium 142 mmol/L (137-145)
[2024-08-25 08:03] LABS: Glucose Point of Care 120 mg/dl (65-105)
--- NOTE | 2024-08-25 08:46 | PM.IMPN ---
Progress Note: A&P Assessment and Plan (1) Sepsis: Qualifiers: Acute renal failure type: unspecified Sepsis acute organ dysfunction status: with acute organ dysfunction Sepsis type: sepsis due to unspecified organism Severe sepsis acute organ dysfunction type: acute renal failure Severe sepsis shock status: with septic shock Qualified Code(s): A41.9 - Sepsis, unspecified organism; R65.21 - Severe sepsis with septic shock; N17.9 - Acute kidney failure, unspecified Code(s): A41.9 - Sepsis, unspecified organism Status: Suspected Assessment and Plan: - did not qualify for SIRS criteria, however has elevated lactic and soft blood pressure - lactic acid: 2.4 - lactic elevated, procalcitonin added - 30 mL/kg = 2300, given 2L bolus - suspected source: UTI - started on ceftriaxone, exchanged to ampicillin due to remote history of Enterococcus UTI - blood cultures- prelim NO growth - UA consistent with UTI - monitor WBC and hemodynamics (2) UTI (urinary tract infection): Qualifiers: Hematuria presence: without hematuria Urinary tract infection type: acute cystitis Qualified Code(s): N30.00 - Acute cystitis without hematuria Code(s): N39.0 - Urinary tract infection, site not specified Status: Acute Assessment and Plan: - UA: Brown, turbid, 2+ protein, 1+ blood, 3+ leuks, 21-50 RBC, greater than 100 WBC, few epithelial cells, moderate amorphous sediment, 4+ bacteria - UC pending - previous micro reviewed, most recent culture on 03/15/2024 grew Enterococcus - started on IV ampicillin on 08/24/2024 (3) Acute kidney injury superimposed on CKD: Code(s): N17.9 - Acute kidney failure, unspecified; N18.9 - Chronic kidney disease, unspecified Status: Acute Assessment and Plan: - creatinine 2.5 and GFR 26, previously 1.3 and GFR 55 on 05/17/2024 - suspect injury secondary to UTI, start antibiotics and IV fluids - trend renal function - trend electrolytes, correct as needed (4) Diabetes: Qualifiers: Diabetes mellitus complication status: without complication Diabetes mellitus terminal gauger insulin use: without correction use Diabetes mellitus type: type 2 Qualified Code(s): E11.9 - Type 2 diabetes mellitus without complications Code(s): E11.9 - Type 2 diabetes mellitus without complications Status: Chronic Assessment and Plan: - hypoglycemia protocol - POC blood glucose ACHS - not on home medications, however initial glucose 198 - correct regimen ordered - low dose TIDWM, based off BMI - A1C 5.9% in April of 2024, update -monitor (5) Hypertension: Qualifiers: Hypertension type: primary hypertension Qualified Code(s): I10 - Essential (primary) hypertension Code(s): I10 - Essential (primary) hypertension Status: Chronic Assessment and Plan: - chronic, currently 125/77 - home medications: continue Metoprolol 50 mg b.i.d. - monitor Plan Diet: Heart healthy GI Prophylaxis: Not currently indicated DVT Prophylaxis: Continue home Eliquis Lines: Peripheral Code Status: DNR Time Spent With Patient Time with patient: Greater than 35 minutes Subjective Date/time seen: 08/25/24 08:46 Interval history: Hypotension, Possible UTI Narrative retrieved form H/P: 69 y/o M presents here with hypotension and possible UTI with PMH of HTN, CVA, neurogenic bladder, atrial fibrillation, BPH, HTN, HLD, diabetes, and normocytic anemia. The patient presents here from a local urgent care where he initially sought evaluation of a possible UTI. Patient receives home health once every 2 weeks. At most recent visit on Tuesday (08/22) his home health nurse exchanged his Bosch. During the exchange she became concerned the patient that the patient had a UTI. Patient went to a local urgent care today to be seen for this issue, upon arrival there it was noted that he had a low blood pressure which
[2024-08-25 09:24] VITALS: O2SAT 96
[2024-08-25 09:33] VITALS: PULSE 74
[2024-08-25] MEDS: BETHANECHOL CHLORIDE 5 MG TABLET FEED TUBE ×3 (09:33→17:06)
[2024-08-25] MEDS: FINASTERIDE 5 MG TABLET FEED TUBE (09:33)
[2024-08-25] MEDS: TAMSULOSIN HCL 0.4 MG CAPSULE PO (09:33)
[2024-08-25] MEDS: APIXABAN 5 MG TABLET FEED TUBE (09:33)
[2024-08-25] MEDS: METOPROLOL TARTRATE 50 MG TAB FEED TUBE (09:33)
[2024-08-25] MEDS: ATORVASTATIN 40 MG TABLET FEED TUBE (09:33)
[2024-08-25] MEDS: AMPICILLIN 1 GM/NS 50 ML 1 GM/50 ML BAG IVPB ×2 (09:34→21:13)
[2024-08-25 11:55] LABS: Glucose Point of Care 142 mg/dl (65-105)
[2024-08-25 14:00] VITALS: BP 154/92; PULSE 67; RESP 20; TEMP 37.2; O2SAT 97
[2024-08-25 16:16] LABS: Glucose Point of Care 150 mg/dl (65-105)
[2024-08-25 20:34] VITALS: BP 166/81; PULSE 78; RESP 19; TEMP 36.6; O2SAT 95
[2024-08-25] MEDS: METOPROLOL TARTRATE 50 MG TAB PO (21:11)
[2024-08-25] MEDS: APIXABAN 5 MG TABLET PO (21:11)
[2024-08-25] MEDS: MIRTAZAPINE 15 MG TABLET PO (21:11)
[2024-08-26 05:56] VITALS: BP 133/77; PULSE 83; RESP 19; TEMP 36.9; O2SAT 92
[2024-08-26] MEDS: AMPICILLIN 1 GM/NS 50 ML 1 GM/50 ML BAG IVPB ×2 (09:40→20:34)
--- NOTE | 2024-08-26 09:42 | PM.IMPN ---
Progress Note: A&P Assessment and Plan (1) Sepsis: Qualifiers: Acute renal failure type: unspecified Sepsis acute organ dysfunction status: with acute organ dysfunction Sepsis type: sepsis due to unspecified organism Severe sepsis acute organ dysfunction type: acute renal failure Severe sepsis shock status: with septic shock Qualified Code(s): A41.9 - Sepsis, unspecified organism; R65.21 - Severe sepsis with septic shock; N17.9 - Acute kidney failure, unspecified Code(s): A41.9 - Sepsis, unspecified organism Status: Suspected Assessment and Plan: - did not qualify for SIRS criteria, however has elevated lactic and soft blood pressure - lactic acid: 2.4 - lactic elevated, procalcitonin added - 30 mL/kg = 2300, given 2L bolus - suspected source: UTI - started on ceftriaxone, exchanged to ampicillin due to remote history of Enterococcus UTI - blood cultures- prelim NO growth - UA consistent with UTI - monitor WBC and hemodynamics (2) UTI (urinary tract infection): Qualifiers: Hematuria presence: without hematuria Urinary tract infection type: acute cystitis Qualified Code(s): N30.00 - Acute cystitis without hematuria Code(s): N39.0 - Urinary tract infection, site not specified Status: Acute Assessment and Plan: - UA: Brown, turbid, 2+ protein, 1+ blood, 3+ leuks, 21-50 RBC, greater than 100 WBC, few epithelial cells, moderate amorphous sediment, 4+ bacteria - UC pending - previous micro reviewed, most recent culture on 03/15/2024 grew Enterococcus - started on IV ampicillin on 08/24/2024 - will continue until cultures are final (3) Acute kidney injury superimposed on CKD: Code(s): N17.9 - Acute kidney failure, unspecified; N18.9 - Chronic kidney disease, unspecified Status: Acute Assessment and Plan: - creatinine 2.5 and GFR 26, previously 1.3 and GFR 55 on 05/17/2024 - suspect injury secondary to UTI, start antibiotics and IV fluids - trend renal function - trend electrolytes, correct as needed (4) Diabetes: Qualifiers: Diabetes mellitus complication status: without complication Diabetes mellitus mcfp insulin use: without ferris wheel attendant use Diabetes mellitus type: type 2 Qualified Code(s): E11.9 - Type 2 diabetes mellitus without complications Code(s): E11.9 - Type 2 diabetes mellitus without complications Status: Chronic Assessment and Plan: - hypoglycemia protocol - POC blood glucose ACHS - not on home medications, however initial glucose 198 - correct regimen ordered - low dose TIDWM, based off BMI - A1C 5.9% in April of 2024, update -monitor (5) Hypertension: Qualifiers: Hypertension type: primary hypertension Qualified Code(s): I10 - Essential (primary) hypertension Code(s): I10 - Essential (primary) hypertension Status: Chronic Assessment and Plan: - chronic, currently 125/77 - home medications: continue Metoprolol 50 mg b.i.d. - monitor Plan Diet: Heart healthy GI Prophylaxis: Not currently indicated DVT Prophylaxis: Continue home Eliquis Lines: Peripheral Code Status: DNR Time Spent With Patient Time with patient: Greater than 35 minutes Subjective Date/time seen: 08/26/24 09:42 Interval history: Hypotension, Possible UTI Narrative retrieved form H/P: 69 y/o M presents here with hypotension and possible UTI with PMH of HTN, CVA, neurogenic bladder, atrial fibrillation, BPH, HTN, HLD, diabetes, and normocytic anemia. The patient presents here from a local urgent care where he initially sought evaluation of a possible UTI. Patient receives home health once every 2 weeks. At most recent visit on Tuesday (08/22) his home health nurse exchanged his Bosch. During the exchange she became concerned the patient that the patient had a UTI. Patient went to a local urgent care today to be seen for this issue, upon arrival there it was note
[2024-08-26] MEDS: ATORVASTATIN 40 MG TABLET PO (09:43)
[2024-08-26 09:44] VITALS: PULSE 83
[2024-08-26] MEDS: BETHANECHOL CHLORIDE 5 MG TABLET PO ×2 (09:44→17:40)
[2024-08-26] MEDS: METOPROLOL TARTRATE 50 MG TAB PO ×2 (09:44→20:34)
[2024-08-26] MEDS: TAMSULOSIN HCL 0.4 MG CAPSULE PO (09:44)
[2024-08-26] MEDS: APIXABAN 5 MG TABLET PO ×2 (09:44→20:34)
[2024-08-26] MEDS: FINASTERIDE 5 MG TABLET PO (09:44)
[2024-08-26 12:08] LABS: Glucose Point of Care 170 mg/dl (65-105)
[2024-08-26 14:00] VITALS: BP 118/60; PULSE 62; RESP 20; TEMP 36.6; O2SAT 98
[2024-08-26 16:59] LABS: Glucose Point of Care 111 mg/dl (65-105)
[2024-08-26] MEDS: MIRTAZAPINE 15 MG TABLET PO (20:34)
[2024-08-26 20:36] LABS: Glucose Point of Care 163 mg/dl (65-105)
[2024-08-26 21:00] VITALS: BP 162/80; PULSE 75; RESP 16; TEMP 36.9; O2SAT 99
[2024-08-27 05:54] VITALS: BP 153/78; PULSE 77; RESP 16; TEMP 37.1; O2SAT 98
[2024-08-27 07:19] LABS: Glucose Point of Care 108 mg/dl (65-105)
--- NOTE | 2024-08-27 08:17 | PM.IMPN ---
Progress Note: A&P Assessment and Plan (1) UTI (urinary tract infection): Qualifiers: Urinary tract infection type: acute cystitis Hematuria presence: without hematuria Qualified Code(s): N30.00 - Acute cystitis without hematuria Code(s): N39.0 - Urinary tract infection, site not specified Status: Acute Assessment and Plan: - UA: Brown, turbid, 2+ protein, 1+ blood, 3+ leuks, 21-50 RBC, greater than 100 WBC, few epithelial cells, moderate amorphous sediment, 4+ bacteria - UC pending - previous micro reviewed, most recent culture on 03/15/2024 grew Enterococcus - started on IV ampicillin on 08/24/2024 - will continue until cultures are final 08/27: - Enterobacter/klebsiella on cx, will empirically change to cefepime today - dosed renally. - Full sensitivities to result tomorrow. (2) Acute kidney injury superimposed on CKD: Code(s): N17.9 - Acute kidney failure, unspecified; N18.9 - Chronic kidney disease, unspecified Status: Acute Assessment and Plan: - creatinine 2.5 and GFR 26, previously 1.3 and GFR 55 on 05/17/2024 - suspect injury secondary to UTI, start antibiotics and IV fluids - trend renal function - trend electrolytes, correct as needed 08/27: - No significant improvement over the last two days, plan to add IVF NaCl at 125ml/hr, close attention to volume status. - Renal u/s. - Consider nephrology consultation pending response to IVF. - Avoid nephrotoxins. (3) Sepsis: Qualifiers: Acute renal failure type: unspecified Sepsis acute organ dysfunction status: with acute organ dysfunction Sepsis type: sepsis due to unspecified organism Severe sepsis acute organ dysfunction type: acute renal failure Severe sepsis shock status: with septic shock Qualified Code(s): A41.9 - Sepsis, unspecified organism; R65.21 - Severe sepsis with septic shock; N17.9 - Acute kidney failure, unspecified Code(s): A41.9 - Sepsis, unspecified organism Status: Suspected Assessment and Plan: - did not qualify for SIRS criteria, however has elevated lactic and soft blood pressure - lactic acid: 2.4 - lactic elevated, procalcitonin added - 30 mL/kg = 2300, given 2L bolus - suspected source: UTI - started on ceftriaxone, exchanged to ampicillin due to remote history of Enterococcus UTI - blood cultures- prelim NO growth - UA consistent with UTI - monitor WBC and hemodynamics 08/27: - Resolved sepsis. Stable VS and exam. Blood cx no growth at this time x 2 (4) Diabetes: Qualifiers: Diabetes mellitus type: type 2 Diabetes mellitus custodial insulin use: without custodial use Diabetes mellitus complication status: without complication Qualified Code(s): E11.9 - Type 2 diabetes mellitus without complications Code(s): E11.9 - Type 2 diabetes mellitus without complications Status: Chronic Assessment and Plan: - hypoglycemia protocol - POC blood glucose ACHS - not on home medications, however initial glucose 198 - correct regimen ordered - low dose TIDWM, based off BMI - A1C 5.9% in April of 2024, update -monitor 08/27: - Blood glucose generally within ADA recommended target ranges for hospitalization. - Cont. current regimen. (5) Hypertension: Qualifiers: Hypertension type: primary hypertension Qualified Code(s): I10 - Essential (primary) hypertension Code(s): I10 - Essential (primary) hypertension Status: Chronic Assessment and Plan: - chronic, currently 125/77 - home medications: continue Metoprolol 50 mg b.i.d. - monitor 08/27: - Last 24 hours reviewed, range 118 - 162 sbp. Cont. metoprolol, consider addition of hydralazine or norvasc if trending up. Plan Diet: Heart healthy DVT Prophylaxis: Continue home Eliquis Lines: Peripheral Code Status: DNR Time Spent With Patient Time with patient: Greater than 35 minutes Subjective Date/time seen: 08/27/24 08:17
[2024-08-27] MEDS: FINASTERIDE 5 MG TABLET PO (08:27)
[2024-08-27] MEDS: APIXABAN 5 MG TABLET PO ×2 (08:27→21:34)
[2024-08-27] MEDS: TAMSULOSIN HCL 0.4 MG CAPSULE PO (08:27)
[2024-08-27] MEDS: ATORVASTATIN 40 MG TABLET PO (08:27)
[2024-08-27 08:28] VITALS: PULSE 82
[2024-08-27] MEDS: BETHANECHOL CHLORIDE 5 MG TABLET PO ×3 (08:28→16:55)
[2024-08-27] MEDS: AMPICILLIN 1 GM/NS 50 ML 1 GM/50 ML BAG IVPB (08:28)
[2024-08-27] MEDS: METOPROLOL TARTRATE 50 MG TAB PO ×2 (08:28→21:34)
[2024-08-27 09:15] LABS: Hematocrit 32.2 % (42.0-52.0); Hemoglobin 10.3 g/dL (14.0-18.0); Mean Corpuscular Hemoglobin 30.2 pg (26-34); Mean Corpuscular Volume 94.4 fl (80-100); Mean Platelet Volume 9.3 fl (7.4-10.4); Platelet Count Result 208 k/mm3 (150-375); Red Blood Count 3.41 M/mm3 (4.6-6.20); Red Cell Distribution Width 15.3 % (11.5-14.5); White Blood Count 7.8 K/mm3 (4.5-10.0)
[2024-08-27 09:39] LABS: Anion Gap 7 mmol/L (4-12); Blood Urea Nitrogen 54 mg/dL (9-20); Calcium 8.4 mg/dL (8.4-10.2); Carbon Dioxide 26 mmol/L (22-30); Chloride 107 mmol/L (98-107); Estimated CRCL calculation 24 ml/min; Estimated Glomerular Filt Rate 23; Glucose 177 mg/dL (65-110); Potassium 4.4 mmol/L (3.4-5.0); Sodium 140 mmol/L (137-145)
[2024-08-27 11:23] LABS: Glucose Point of Care 138 mg/dl (65-105)
[2024-08-27] MEDS: CEFEPIME 1 GM/NS 50 ML 1 GM/50 ML BAG IVPB (12:06)
[2024-08-27 14:00] VITALS: BP 127/55; PULSE 58; RESP 16; TEMP 36.7; O2SAT 98
[2024-08-27 16:29] LABS: Glucose Point of Care 109 mg/dl (65-105)
[2024-08-27] MEDS: SODIUM CHLORIDE 0.9% IV 1,000 ML 125 ML IV CONT (16:55)
[2024-08-27 19:56] LABS: Glucose Point of Care 130 mg/dl (65-105)
[2024-08-27 20:46] VITALS: BP 146/71; PULSE 64; RESP 18; TEMP 36.8; O2SAT 98
[2024-08-27] MEDS: MIRTAZAPINE 15 MG TABLET PO (21:34)
[2024-08-28] MEDS: SODIUM CHLORIDE 0.9% IV 1,000 ML 125 ML IV CONT ×2 (02:00→11:59)
[2024-08-28 05:26] VITALS: BP 169/77; PULSE 68; RESP 14; TEMP 36.7; O2SAT 97
[2024-08-28 07:22] LABS: Hematocrit 31.1 % (42.0-52.0); Hemoglobin 10.1 g/dL (14.0-18.0); Mean Corpuscular HGB Conc 32.5 g/dl (32-36); Mean Corpuscular Hemoglobin 30.7 pg (26-34); Mean Corpuscular Volume 94.5 fl (80-100); Mean Platelet Volume 9.2 fl (7.4-10.4); Platelet Count Result 212 k/mm3 (150-375); Red Blood Count 3.29 M/mm3 (4.6-6.20); Red Cell Distribution Width 15.2 % (11.5-14.5); White Blood Count 7.8 K/mm3 (4.5-10.0)
[2024-08-28 07:33] LABS: Anion Gap 7 mmol/L (4-12); Blood Urea Nitrogen 50 mg/dL (9-20); Calcium 8.3 mg/dL (8.4-10.2); Carbon Dioxide 25 mmol/L (22-30); Chloride 109 mmol/L (98-107); Estimated CRCL calculation 25 ml/min; Estimated Glomerular Filt Rate 25; Glucose 86 mg/dL (65-110); Potassium 4.2 mmol/L (3.4-5.0); Sodium 141 mmol/L (137-145)
[2024-08-28 07:58] LABS: Glucose Point of Care 95 mg/dl (65-105)
[2024-08-28] MEDS: BETHANECHOL CHLORIDE 5 MG TABLET PO ×3 (08:24→16:42)
[2024-08-28] MEDS: ATORVASTATIN 40 MG TABLET PO (08:24)
[2024-08-28] MEDS: FINASTERIDE 5 MG TABLET PO (08:24)
[2024-08-28] MEDS: TAMSULOSIN HCL 0.4 MG CAPSULE PO (08:24)
[2024-08-28] MEDS: APIXABAN 5 MG TABLET PO ×2 (08:24→21:42)
[2024-08-28] MEDS: METOPROLOL TARTRATE 50 MG TAB PO ×2 (08:24→21:42)
[2024-08-28] MEDS: CEFEPIME 1 GM/NS 50 ML 1 GM/50 ML BAG IVPB (08:24)
--- NOTE | 2024-08-28 09:59 | PM.IMPN ---
Progress Note: A&P Assessment and Plan (1) UTI (urinary tract infection): Qualifiers: Hematuria presence: without hematuria Urinary tract infection type: acute cystitis Qualified Code(s): N30.00 - Acute cystitis without hematuria Code(s): N39.0 - Urinary tract infection, site not specified Status: Acute Assessment and Plan: - UA: Brown, turbid, 2+ protein, 1+ blood, 3+ leuks, 21-50 RBC, greater than 100 WBC, few epithelial cells, moderate amorphous sediment, 4+ bacteria - previous micro reviewed, most recent culture on 03/15/2024 grew Enterococcus - started on IV ampicillin on 08/24/2024 - will continue until cultures are final 08/28: - Enterobacter/klebsiella on cx, will empirically change to cefepime today - dosed renally. - 08/30 will be 7 days of antibiotics -blood cultures with no growth today (2) Acute kidney injury superimposed on CKD: Code(s): N17.9 - Acute kidney failure, unspecified; N18.9 - Chronic kidney disease, unspecified Status: Acute Assessment and Plan: - creatinine 2.5 and GFR 26, previously 1.3 and GFR 55 on 05/17/2024 - suspect injury secondary to UTI, start antibiotics and IV fluids - trend renal function - trend electrolytes, correct as needed 08/28: - No significant improvement over the last two days, plan to add IVF NaCl at 125ml/hr. Decreased to 75 ml an hour - Renal u/s shows medical renal disease -minimal improvement with IV fluids. I contacted his primary care office and verified that he has no prior history of CKD. - nephrology was consulted today. Recs are appreciated. -urine studies pending - Avoid nephrotoxins. (3) Sepsis: Qualifiers: Acute renal failure type: unspecified Sepsis acute organ dysfunction status: with acute organ dysfunction Sepsis type: sepsis due to unspecified organism Severe sepsis acute organ dysfunction type: acute renal failure Severe sepsis shock status: with septic shock Qualified Code(s): A41.9 - Sepsis, unspecified organism; R65.21 - Severe sepsis with septic shock; N17.9 - Acute kidney failure, unspecified Code(s): A41.9 - Sepsis, unspecified organism Status: Suspected Assessment and Plan: - did not qualify for SIRS criteria, however has elevated lactic and soft blood pressure - lactic acid: 2.4 - lactic elevated, procalcitonin added - 30 mL/kg = 2300, given 2L bolus - suspected source: UTI - started on ceftriaxone, exchanged to ampicillin due to remote history of Enterococcus UTI - blood cultures- prelim NO growth - UA consistent with UTI - monitor WBC and hemodynamics 08/28: - Resolved sepsis. Stable VS and exam. Blood cx no growth at this time x 2 (4) Diabetes: Qualifiers: Diabetes mellitus complication status: without complication Diabetes mellitus terminologist insulin use: without terminologist use Diabetes mellitus type: type 2 Qualified Code(s): E11.9 - Type 2 diabetes mellitus without complications Code(s): E11.9 - Type 2 diabetes mellitus without complications Status: Chronic Assessment and Plan: - hypoglycemia protocol - POC blood glucose ACHS - not on home medications, however initial glucose 198 - correct regimen ordered - low dose TIDWM, based off BMI - A1C 5.9% in April of 2024, update -monitor 08/28: - Blood glucose generally within ADA recommended target ranges for hospitalization. - Cont. current regimen. (5) Hypertension: Qualifiers: Hypertension type: primary hypertension Qualified Code(s): I10 - Essential (primary) hypertension Code(s): I10 - Essential (primary) hypertension Status: Chronic Assessment and Plan: - chronic, currently 125/77 - home medications: continue Metoprolol 50 mg b.i.d. - monitor 08/28: - Last 24 hours reviewed, range 118 - 162 sbp. Cont. metoprolol, consider addition of hydralazine or Norvasc if trending up. Plan Diet: Heart healthy DVT Prophylax
[2024-08-28 11:22] LABS: Glucose Point of Care 133 mg/dl (65-105)
[2024-08-28 14:00] VITALS: BP 138/62; PULSE 63; RESP 20; TEMP 37; O2SAT 99
[2024-08-28 16:36] LABS: Glucose Point of Care 118 mg/dl (65-105)
[2024-08-28 18:27] LABS: Creatinine Urine 64.9 mg/dL; Total Protein Urine Random 69 mg/dL; Ur Ttl Prot Creatinine Ratio 1.06 mg/mg (0-0.20)
[2024-08-28 18:28] LABS: Eosinophil Urine Rare % (None Seen); Urine Eos QC 2nd Tech Confirmed
[2024-08-28 18:39] LABS: Urea Random Urine 528 MG/DL
[2024-08-28 18:44] LABS: Sodium Urine Random 48 meq/L
[2024-08-28 20:17] LABS: Glucose Point of Care 141 mg/dl (65-105)
[2024-08-28 20:21] VITALS: BP 144/75; PULSE 70; RESP 17; TEMP 36.3; O2SAT 98
[2024-08-28] MEDS: MIRTAZAPINE 15 MG TABLET PO (21:42)
[2024-08-28] MEDS: SODIUM CHLORIDE 0.9% IV 1,000 ML 75 ML IV CONT (21:42)
[2024-08-29 05:35] VITALS: BP 136/102; PULSE 72; RESP 18; TEMP 36.2; O2SAT 93
[2024-08-29 06:55] LABS: Basophils Percent Auto 0.4 % (0.2-1.2); Eosinophils Absolute Auto 0.4 K/mm3 (0-0.3); Eosinophils Percent Auto 4.5 % (0-4.4); Hematocrit 32.4 % (42.0-52.0); Immature Granulocyte Absolute 0.08 K/mm3 (0.00-0.031); Lymphocytes Absolute Auto 2.52 K/mm3 (0.9-3.2); Mean Corpuscular HGB Conc 30.9 g/dl (32-36); Mean Corpuscular Hemoglobin 29.4 pg (26-34); Mean Corpuscular Volume 95.3 fl (80-100); Mean Platelet Volume 9.4 fl (7.4-10.4); Monocytes Absolute Auto 1.1 K/mm3 (0.1-0.6); Monocytes Percent Auto 12.8 % (2.6-8.5); Neutrophils Absolute Auto 4.3 K/mm3 (1.3-6.7); Neutrophils Percent Auto 51.3 % (45.5-73.1); Platelet Count Result 221 k/mm3 (150-375); Red Cell Distribution Width 15.4 % (11.5-14.5); White Blood Count 8.4 K/mm3 (4.5-10.0)
[2024-08-29 07:02] LABS: Alanine Aminotransferase 37 U/L (6-50); Alkaline Phosphatase 107 U/L (38-126); Anion Gap 8 mmol/L (4-12); Aspartate Amino Transferase 45 U/L (17-59); Bilirubin,Total 0.7 mg/dL (0.2-1.3); Blood Urea Nitrogen 48 mg/dL (9-20); Calcium 7.9 mg/dL (8.4-10.2); Carbon Dioxide 22 mmol/L (22-30); Chloride 111 mmol/L (98-107); Creatine Kinase 31 U/L (55-170); Estimated CRCL calculation 28 ml/min; Estimated Glomerular Filt Rate 28; Glucose 93 mg/dL (65-110); Potassium 4.5 mmol/L (3.4-5.0); Sodium 141 mmol/L (137-145)
[2024-08-29 07:43] LABS: Glucose Point of Care 95 mg/dl (65-105)
[2024-08-29] MEDS: FINASTERIDE 5 MG TABLET PO (09:09)
[2024-08-29] MEDS: APIXABAN 5 MG TABLET PO ×2 (09:09→20:26)
[2024-08-29] MEDS: BETHANECHOL CHLORIDE 5 MG TABLET PO ×3 (09:09→17:12)
[2024-08-29] MEDS: ATORVASTATIN 40 MG TABLET PO (09:09)
[2024-08-29] MEDS: CEFEPIME 1 GM/NS 50 ML 1 GM/50 ML BAG IVPB (09:09)
[2024-08-29] MEDS: TAMSULOSIN HCL 0.4 MG CAPSULE PO (09:09)
[2024-08-29] MEDS: METOPROLOL TARTRATE 50 MG TAB PO ×2 (09:09→20:26)
[2024-08-29 09:18] LABS: Free T4 Free Thyroxine Reflex 1.49 ng/dL (0.78-2.19)
[2024-08-29 10:28] LABS: Total Triiodothyronine (T3) 1.03 NG/ML (0.97-1.69)
[2024-08-29 11:29] LABS: Glucose Point of Care 106 mg/dl (65-105)
[2024-08-29] MEDS: SODIUM CHLORIDE 0.9% IV 1,000 ML 75 ML IV CONT (11:35)
[2024-08-29 11:42] LABS: Glucose Point of Care 108 mg/dl (65-105)
--- NOTE | 2024-08-29 12:16 | PM.IMPN ---
Progress Note: A&P Assessment and Plan (1) UTI (urinary tract infection): Qualifiers: Hematuria presence: without hematuria Urinary tract infection type: acute cystitis Qualified Code(s): N30.00 - Acute cystitis without hematuria Code(s): N39.0 - Urinary tract infection, site not specified Status: Acute Assessment and Plan: - UA: Brown, turbid, 2+ protein, 1+ blood, 3+ leuks, 21-50 RBC, greater than 100 WBC, few epithelial cells, moderate amorphous sediment, 4+ bacteria - previous micro reviewed, most recent culture on 03/15/2024 grew Enterococcus - started on IV ampicillin on 08/24/202408/28: - Enterobacter/klebsiella pneumoniae on cx, will empirically change to cefepime today- dosed renally. 08/29/24: - Starting 08/30 switch to Levofloxacin 750 mg q 48 x 2 doses. - blood cultures with no growth to date. (2) Acute kidney injury superimposed on CKD: Code(s): N17.9 - Acute kidney failure, unspecified; N18.9 - Chronic kidney disease, unspecified Status: Acute Assessment and Plan: - creatinine 2.30 and GFR 28, previously 1.3 and GFR 55 on 05/17/2024 - suspect injury secondary to UTI, start antibiotics and IV fluids - trend renal function - trend electrolytes, correct as needed 08/28: - No significant improvement over the last two days, plan to add IVF NaCl at 125ml/hr. Decreased to 75 ml an hour - Renal u/s shows medical renal disease -minimal improvement with IV fluids. I contacted his primary care office and verified that he has no prior history of CKD. - nephrology consult, recs are appreciated. 08/29/24: -urine culture showed Enterobacter/klebsiella pneumoniae on cx, - Avoid nephrotoxins. - nephrology consult, recs are appreciated. - creatinine 2.30 and GFR 28 today (3) Sepsis: Qualifiers: Acute renal failure type: unspecified Sepsis acute organ dysfunction status: with acute organ dysfunction Sepsis type: sepsis due to unspecified organism Severe sepsis acute organ dysfunction type: acute renal failure Severe sepsis shock status: with septic shock Qualified Code(s): A41.9 - Sepsis, unspecified organism; R65.21 - Severe sepsis with septic shock; N17.9 - Acute kidney failure, unspecified Code(s): A41.9 - Sepsis, unspecified organism Status: Suspected Assessment and Plan: - did not qualify for SIRS criteria, however has elevated lactic and soft blood pressure - lactic acid: 2.4 - lactic elevated, procalcitonin added - 30 mL/kg = 2300, given 2L bolus - suspected source: UTI - started on ceftriaxone, exchanged to ampicillin due to remote history of Enterococcus UTI - blood cultures- prelim NO growth - UA consistent with UTI - monitor WBC and hemodynamics 08/28: - Resolved sepsis. Stable VS and exam. Blood cx no growth at this time x 2 08/29/24: -Stable VS. -Starting 08/30 switch to Levofloxacin 750 mg q 48 x 2 doses. - PT/OT for strengthening and balance. (4) Diabetes: Qualifiers: Diabetes mellitus complication status: without complication Diabetes mellitus batch and furnace manager insulin use: without prison use Diabetes mellitus type: type 2 Qualified Code(s): E11.9 - Type 2 diabetes mellitus without complications Code(s): E11.9 - Type 2 diabetes mellitus without complications Status: Chronic Assessment and Plan: - hypoglycemia protocol - POC blood glucose ACHS - not on home medications, however initial glucose 198 - correct regimen ordered - low dose TIDWM, based off BMI - A1C 5.9% in April of 2024, update -monitor 08/28: - Blood glucose generally within ADA recommended target ranges for hospitalization. - Cont. current regimen. 08/29/24: - Blood sugar 95 this morning. (5) Hypertension: Qualifiers: Hypertension type: primary hypertension Qualified Code(s): I10 - Essential (primary) hypertension Code(s): I10 - Essential (primary) hypertension Status: Chronic
--- NOTE | 2024-08-29 12:46 | P.CONNP_ITS ---
Assessment and Plan Assessment and plan (1) LEANDRO (acute kidney injury): Code(s): N17.9 - Acute kidney failure, unspecified Status: Acute Assessment and Plan: * presumably due to combination of UTI and prerenal factors * slow improvement noted with current interventions * renal ultrasound noted * check urine studies * continue supportive therapy * follow trend of repeat labs and UOP (2) Stage 3a chronic kidney disease: Code(s): N18.31 - Chronic kidney disease, stage 3a Status: Chronic Assessment and Plan: * baseline creatinine seems to run ~ 1.2 - 1.4mg/dl * presumably due to hypertension, diabetes, vascular disease (CVA + hyperlipidemia + CHF), BPH/neurogenic bladder, recurrent UTIs, and age-related change (3) UTI (urinary tract infection): Qualifiers: Urinary tract infection type: acute cystitis Hematuria presence: without hematuria Qualified Code(s): N30.00 - Acute cystitis without hematuria Code(s): N39.0 - Urinary tract infection, site not specified Status: Acute Assessment and Plan: * admission UA highly suggestive * urine culture with Enterobacter/klebsiella pneumoniae * on antibiotics (4) Sepsis: Qualifiers: Acute renal failure type: unspecified Sepsis acute organ dysfunction status: with acute organ dysfunction Sepsis type: sepsis due to unspecified organism Severe sepsis acute organ dysfunction type: acute renal failure Severe sepsis shock status: with septic shock Qualified Code(s): A41.9 - Sepsis, unspecified organism; R65.21 - Severe sepsis with septic shock; N17.9 - Acute kidney failure, unspecified Code(s): A41.9 - Sepsis, unspecified organism Status: Suspected Assessment and Plan: * resolving if not resolved * as suggested by elevated lactic acid and soft BP readings on admission * source felt to be UTI * culture data (blood/urine) noted * on antibiotic therapy (5) Hypertension: Qualifiers: Hypertension type: primary hypertension Qualified Code(s): I10 - Essential (primary) hypertension Code(s): I10 - Essential (primary) hypertension Status: Chronic Assessment and Plan: * soft BPS noted on admission * better s/p IVFs * resumed on metoprolol * follow trend of hemodynamics (6) Diabetes: Qualifiers: Diabetes mellitus type: type 2 Diabetes mellitus long-term insulin use: without long-term use Diabetes mellitus complication status: without compli cation Qualified Code(s): E11.9 - Type 2 diabetes mellitus without complic ations Code(s): E11.9 - Type 2 diabetes mellitus without complications Status: Chronic Assessment and Plan: * follow accu-cheks * glycemic control per hospitalist I will continue to follow the patient with you while he remains hospitalized and make further recommendations as deemed necessary. Thank you for allowing me to participate in the care of this patient. History of Present Illness Reason for Consult Consult date: 08/30/24 Reason for consult: acute renal failure Chief Complaint Chief complaint: uti,sepsis Review of Systems Review of Systems: As per HPI. [facility] [place] Past Medical History Medical History Anxiety Arthritis BPH loc w urin obs/LUTS Chronic anemia CKD (chronic kidney disease) Combined systolic and diastolic congestive heart failure CVA (cerebral vascular accident) Per MRI on 03/20/2024,
--- NOTE | 2024-08-29 12:46 | PM.CNNEP ---
Assessment and Plan Assessment and plan (1) LEANDRO (acute kidney injury): Code(s): N17.9 - Acute kidney failure, unspecified Status: Acute Assessment and Plan: presumably due to combination of UTI and prerenal factors slow improvement noted with current interventions renal ultrasound noted check urine studies continue supportive therapy follow trend of repeat labs and UOP (2) Stage 3a chronic kidney disease: Code(s): N18.31 - Chronic kidney disease, stage 3a Status: Chronic Assessment and Plan: baseline creatinine seems to run ~ 1.2 - 1.4mg/dl presumably due to hypertension, diabetes, vascular disease (CVA + hyperlipidemia + CHF), BPH/neurogenic bladder, recurrent UTIs, and age-related change (3) UTI (urinary tract infection): Qualifiers: Urinary tract infection type: acute cystitis Hematuria presence: without hematuria Qualified Code(s): N30.00 - Acute cystitis without hematuria Code(s): N39.0 - Urinary tract infection, site not specified Status: Acute Assessment and Plan: admission UA highly suggestive urine culture with Enterobacter/klebsiella pneumoniae on antibiotics (4) Sepsis: Qualifiers: Acute renal failure type: unspecified Sepsis acute organ dysfunction status: with acute organ dysfunction Sepsis type: sepsis due to unspecified organism Severe sepsis acute organ dysfunction type: acute renal failure Severe sepsis shock status: with septic shock Qualified Code(s): A41.9 - Sepsis, unspecified organism; R65.21 - Severe sepsis with septic shock; N17.9 - Acute kidney failure, unspecified Code(s): A41.9 - Sepsis, unspecified organism Status: Suspected Assessment and Plan: resolving if not resolved as suggested by elevated lactic acid and soft BP readings on admission source felt to be UTI culture data (blood/urine) noted on antibiotic therapy (5) Hypertension: Qualifiers: Hypertension type: primary hypertension Qualified Code(s): I10 - Essential (primary) hypertension Code(s): I10 - Essential (primary) hypertension Status: Chronic Assessment and Plan: soft BPS noted on admission better s/p IVFs resumed on metoprolol follow trend of hemodynamics (6) Diabetes: Qualifiers: Diabetes mellitus type: type 2 Diabetes mellitus penitentiary insulin use: without nonprofit financial controller use Diabetes mellitus complication status: without complication Qualified Code(s): E11.9 - Type 2 diabetes mellitus without complications Code(s): E11.9 - Type 2 diabetes mellitus without complications Status: Chronic Assessment and Plan: follow accu-cheks glycemic control per hospitalist I will continue to follow the patient with you while he remains hospitalized and make further recommendations as deemed necessary. Thank you for allowing me to participate in the care of this patient. History of Present Illness Reason for Consult Consult date: 08/30/24 Reason for consult: acute renal failure Chief Complaint Chief complaint: uti,sepsis Review of Systems Review of Systems: As per HPI. [facility] Past Medical History Medical History Anxiety Arthritis BPH loc w urin obs/LUTS Chronic anemia CKD (chronic kidney disease) Combined systolic and diastolic congestive heart failure CVA (cerebral vascular accident) Per MRI on 03/20/2024, old infarcts in the bilateral basal ganglia Hyperlipidemia Hypertension Indwelling Bosch catheter present Neurogenic bladder Non-insulin dependent diabetes mellitus Normocytic anemia Obstructive uropathy PAF (paroxysmal atrial fibrillation) TIA (transient ischemic attack) Surgical History Surgical History History of appendectomy Family History Family History (Reviewed 08/24/24 @ 13:35 by Caroline Lino
[2024-08-29 14:00] VITALS: BP 124/70; PULSE 67; RESP 16; TEMP 36.4; O2SAT 97
[2024-08-29 16:53] LABS: Glucose Point of Care 120 mg/dl (65-105)
[2024-08-29 20:26] VITALS: PULSE 64
[2024-08-29] MEDS: MIRTAZAPINE 15 MG TABLET PO (20:26)
[2024-08-29 21:11] LABS: Glucose Point of Care 104 mg/dl (65-105)
[2024-08-29 21:59] VITALS: BP 158/73; PULSE 65; RESP 14; TEMP 36.4; O2SAT 98
[2024-08-30] MEDS: SODIUM CHLORIDE 0.9% IV 1,000 ML 75 ML IV CONT (03:55)
[2024-08-30 06:29] LABS: Basophils Percent Auto 0.5 % (0.2-1.2); Eosinophils Absolute Auto 0.4 K/mm3 (0-0.3); Hematocrit 30.9 % (42.0-52.0); Hemoglobin 9.7 g/dL (14.0-18.0); Immature Granulocyte Absolute 0.07 K/mm3 (0.00-0.031); Immature Granulocyte Percent A 0.8 % (0-0.5); Lymphocytes Absolute Auto 2.75 K/mm3 (0.9-3.2); Lymphocytes Percent Auto 31.4 % (18.3-44.2); Mean Corpuscular HGB Conc 31.4 g/dl (32-36); Mean Corpuscular Hemoglobin 29.6 pg (26-34); Mean Corpuscular Volume 94.2 fl (80-100); Mean Platelet Volume 9.2 fl (7.4-10.4); Monocytes Absolute Auto 1.2 K/mm3 (0.1-0.6); Monocytes Percent Auto 13.1 % (2.6-8.5); Neutrophils Absolute Auto 4.3 K/mm3 (1.3-6.7); Neutrophils Percent Auto 49.2 % (45.5-73.1); Platelet Count Result 221 k/mm3 (150-375); Red Blood Count 3.28 M/mm3 (4.6-6.20); Red Cell Distribution Width 15.1 % (11.5-14.5); White Blood Count 8.8 K/mm3 (4.5-10.0)
[2024-08-30 06:38] LABS: Alanine Aminotransferase 36 U/L (6-50); Albumin Level 2.8 g/dL (3.5-5.1); Alkaline Phosphatase 123 U/L (38-126); Anion Gap 5 mmol/L (4-12); Aspartate Amino Transferase 42 U/L (17-59); Bilirubin,Total 0.8 mg/dL (0.2-1.3); Blood Urea Nitrogen 41 mg/dL (9-20); Calcium 7.9 mg/dL (8.4-10.2); Carbon Dioxide 22 mmol/L (22-30); Chloride 112 mmol/L (98-107); Estimated CRCL calculation 31 ml/min; Estimated Glomerular Filt Rate 31; Glucose 95 mg/dL (65-110); Potassium 3.6 mmol/L (3.4-5.0); Sodium 139 mmol/L (137-145)
[2024-08-30 07:51] LABS: Glucose Point of Care 91 mg/dl (65-105)
[2024-08-30 07:56] VITALS: BP 168/79; PULSE 65; RESP 18; TEMP 36.4; O2SAT 65
[2024-08-30] MEDS: TAMSULOSIN HCL 0.4 MG CAPSULE PO (09:12)
[2024-08-30] MEDS: FINASTERIDE 5 MG TABLET PO (09:12)
[2024-08-30 09:13] VITALS: PULSE 65
[2024-08-30] MEDS: METOPROLOL TARTRATE 50 MG TAB PO (09:13)
[2024-08-30] MEDS: levoFLOXacin 750 MG TABLET PO (09:13)
[2024-08-30] MEDS: BETHANECHOL CHLORIDE 5 MG TABLET PO ×2 (09:13→12:02)
[2024-08-30] MEDS: ATORVASTATIN 40 MG TABLET PO (09:13)
[2024-08-30] MEDS: APIXABAN 5 MG TABLET PO (09:13)
--- NOTE | 2024-08-30 10:16 | PM.PNNEP ---
Progress Note: A&P Assessment and Plan (1) LEANDRO (acute kidney injury): Code(s): N17.9 - Acute kidney failure, unspecified Status: Acute Assessment and Plan: presumably due to combination of UTI and prerenal factors slow improvement noted with current interventions evaluation to date noted: renal ultrasound c/w with CKD urine electrolytes non-prerenal rare urine eosinophils - difficult to interpret given UTI CPK low/normal moderate proteinuria continue supportive therapy follow trend of repeat labs and UOP (2) Stage 3a chronic kidney disease: Code(s): N18.31 - Chronic kidney disease, stage 3a Status: Chronic Assessment and Plan: baseline creatinine seems to run ~ 1.2 - 1.4mg/dl presumably due to hypertension, BPH, recurrent UTIs, and age-change (3) UTI (urinary tract infection): Qualifiers: Hematuria presence: without hematuria Urinary tract infection type: acute cystitis Qualified Code(s): N30.00 - Acute cystitis without hematuria Code(s): N39.0 - Urinary tract infection, site not specified Status: Acute Assessment and Plan: admission UA highly suggestive urine culture with Enterobacter/klebsiella pneumoniae on antibiotics (4) Sepsis: Qualifiers: Acute renal failure type: unspecified Sepsis acute organ dysfunction status: with acute organ dysfunction Sepsis type: sepsis due to unspecified organism Severe sepsis acute organ dysfunction type: acute renal failure Severe sepsis shock status: with septic shock Qualified Code(s): A41.9 - Sepsis, unspecified organism; R65.21 - Severe sepsis with septic shock; N17.9 - Acute kidney failure, unspecified Code(s): A41.9 - Sepsis, unspecified organism Status: Suspected Assessment and Plan: resolving if not resolved as suggested by elevated lactic acid and soft BP readings on admission source felt to be UTI culture data (blood/urine) noted on antibiotic therapy (5) Hypertension: Qualifiers: Hypertension type: primary hypertension Qualified Code(s): I10 - Essential (primary) hypertension Code(s): I10 - Essential (primary) hypertension Status: Chronic Assessment and Plan: soft BPS noted on admission better s/p IVFs follow trend of hemodynamics (6) Diabetes: Qualifiers: Diabetes mellitus complication status: without complication Diabetes mellitus penitentiary insulin use: without penitentiary use Diabetes mellitus type: type 2 Qualified Code(s): E11.9 - Type 2 diabetes mellitus without complications Code(s): E11.9 - Type 2 diabetes mellitus without complications Status: Chronic Assessment and Plan: follow accu-cheks glycemic control per hospitalist Will continue to follow. Subjective Date/time seen: 08/30/24 10:16 Interval history: Follow-up for acute kidney injury/acute renal failure. Renal function/creatinine appears to be slowly improving with current therapy (IVF, IV antibiotics, and new perdomo catheter); once again asking me if he can go home today as he feels that he would do better out of the hospital; no issues/events overnight or earlier this morning. Exam Narrative: General: elderly but WD/WN male in NAD Heart: normal S1 and S2; no rub Lungs: clear to auscultation Abdomen: soft, nontender, nondistended, positive bowel sounds Extremities: no cyanosis or clubbing; no edema Skin: warm and dry Objective Data Vital Signs Vital Signs: Vital Signs Temp Pulse Resp BP Pulse Ox O2 Del Method 08/30/24 10:07 98.5 F 62 20 154/66 H 97 08/30/24 09:13 65 08/30/24 07:56 97.6 F 65 18 168/79 H 65 L 08/29/24 20:00 Room Air 08/29/24 21:59 97.5 F L 65 14 158/73 H 98 08/29/24 20:26 64 Intake/Output Intake/Output: Intake & Output 08/27/24 08/28/24 08/29/24 08/30/24 23:59 23:59 23:59 23:59 Intake Tota
--- NOTE | 2024-08-30 10:16 | P.PNNP_ITS ---
Progress Note: A&P Assessment and Plan (1) LEANDRO (acute kidney injury): Code(s): N17.9 - Acute kidney failure, unspecified Status: Acute Assessment and Plan: * presumably due to combination of UTI and prerenal factors * slow improvement noted with current interventions * evaluation to date noted: * renal ultrasound c/w with CKD * urine electrolytes non-prerenal * rare urine eosinophils - difficult to interpret given UTI * CPK low/normal * moderate proteinuria * continue supportive therapy * follow trend of repeat labs and UOP (2) Stage 3a chronic kidney disease: Code(s): N18.31 - Chronic kidney disease, stage 3a Status: Chronic Assessment and Plan: * baseline creatinine seems to run ~ 1.2 - 1.4mg/dl * presumably due to hypertension, BPH, recurrent UTIs, and age-change (3) UTI (urinary tract infection): Qualifiers: Hematuria presence: without hematuria Urinary tract infection type: acute cystitis Qualified Code(s): N30.00 - Acute cystitis without hematuria Code(s): N39.0 - Urinary tract infection, site not specified Status: Acute Assessment and Plan: * admission UA highly suggestive * urine culture with Enterobacter/klebsiella pneumoniae * on antibiotics (4) Sepsis: Qualifiers: Acute renal failure type: unspecified Sepsis acute organ dysfunction status: with acute organ dysfunction Sepsis type: sepsis due to unspecified organism Severe sepsis acute organ dysfunction type: acute renal failure Severe sepsis shock status: with septic shock Qualified Code(s): A41.9 - Sepsis, unspecified organism; R65.21 - Severe sepsis with septic shock; N17.9 - Acute kidney failure, unspecified Code(s): A41.9 - Sepsis, unspecified organism Status: Suspected Assessment and Plan: * resolving if not resolved * as suggested by elevated lactic acid and soft BP readings on admission * source felt to be UTI * culture data (blood/urine) noted * on antibiotic therapy (5) Hypertension: Qualifiers: Hypertension type: primary hypertension Qualified Code(s): I10 - Essential (primary) hypertension Code(s): I10 - Essential (primary) hypertension Status: Chronic Assessment and Plan: * soft BPS noted on admission * better s/p IVFs * follow trend of hemodynamics (6) Diabetes: Qualifiers: Diabetes mellitus complication status: without complication Diabetes mellitus termite treater insulin use: without senior living use Diabetes mellitus type: type 2 Qualified Code(s): E11.9 - Type 2 diabetes mellitus without complications Code(s): E11.9 - Type 2 diabetes mellitus without complications Status: Chronic Assessment and Plan: * follow accu-cheks * glycemic control per hospitalist Will continue to follow. Subjective Date/time seen: 08/30/24 10:16 Interval history: Follow-up for acute kidney injury/acute renal failure. Renal function/creatinine appears to be slowly improving with current therapy (IVF, IV antibiotics, and new perdomo catheter); once again asking me if he can go home today as he feels that he would do better out of the hospital; no issues/events overnight or earlier this morning. Exam Narrative: General: elderly but WD/WN male in NAD Heart: normal S1 and S2; no rub Lungs: clear to auscultation Abdomen: soft, nontender, nondistended, positive bowel sounds Extremities: no cyanosis or clubbing; no edema Skin: warm and dry
[2024-08-30 10:48] LABS: Creatinine, Random Urine 44 mg/dL (20-320); Total Protein/Creatinine Ratio 1750 mg/g creat (25-148)
--- NOTE | 2024-08-30 10:51 | PM.DS ---
DS: Admitting Diagnosis Discharge Date 08/30/24 Admitting Diagnosis UA from nurse concerning for a UTI DS: Discharge Diagnosis Discharge Diagnosis (1) UTI (urinary tract infection): Qualifiers: Hematuria presence: with hematuria Urinary tract infection type: acute cystitis Qualified Code(s): N30.01 - Acute cystitis with hematuria Code(s): N39.0 - Urinary tract infection, site not specified Status: Acute (2) Sepsis: Qualifiers: Acute renal failure type: unspecified Sepsis acute organ dysfunction status: with acute organ dysfunction Sepsis type: sepsis due to unspecified organism Severe sepsis acute organ dysfunction type: acute renal failure Severe sepsis shock status: with septic shock Qualified Code(s): A41.9 - Sepsis, unspecified organism; R65.21 - Severe sepsis with septic shock; N17.9 - Acute kidney failure, unspecified Code(s): A41.9 - Sepsis, unspecified organism Status: Suspected (3) Acute kidney injury superimposed on CKD: Code(s): N17.9 - Acute kidney failure, unspecified; N18.9 - Chronic kidney disease, unspecified Status: Acute (4) Diabetes: Qualifiers: Diabetes mellitus type: type 2 Diabetes mellitus senior care insulin use: without manager intermediate use Diabetes mellitus complication status: without complication Qualified Code(s): E11.9 - Type 2 diabetes mellitus without complications Code(s): E11.9 - Type 2 diabetes mellitus without complications Status: Chronic (5) Hypertension: Qualifiers: Hypertension type: primary hypertension Qualified Code(s): I10 - Essential (primary) hypertension Code(s): I10 - Essential (primary) hypertension Status: Chronic DS: Summary Hospital Course Hospital Course: UA: Brown, turbid, 2+ protein, 1+ blood, 3+ leuks, 21-50 RBC, greater than 100 WBC, few epithelial cells, moderate amorphous sediment, 4+ bacteria - previous micro reviewed, most recent culture on 03/15/2024 grew Enterococcus - started on IV ampicillin on 08/24/202408/28: - Enterobacter/klebsiella pneumoniae on cx, will empirically change to cefepime today- dosed renally. 08/29/24: - Starting 08/30 switch to Levofloxacin 750 mg q 48 x 2 doses. - blood cultures with no growth to date. -did not qualify for SIRS criteria, however has elevated lactic and soft blood pressure Renal u/s shows medical renal disease. Patient given hydration with improvement in creatinine to 2.1. Nephrology saw patient. Patient received PT/OT and will have HH on discharge. Status at Discharge Functional status at discharge: uses cane/walker Overall status at discharge: patient is progressing back to baseline Time Spent with Patient Time attestation: Total time spent providing and/or coordinating discharge services: Time spent: Greater than 30 minutes Exam Const: General: comfortable and no acute distress Eyes: Sclera: sclerae normal Neck: Neck: supple Resp: Effort & Inspection: normal respiratory effort Auscultation: clear to auscultation bilaterally Cardio: Rate: regular rate Rhythm: regular rhythm GI: GI Palp: Yes Soft to palpation Auscultation: normal bowel sounds Skin: General skin exam: no rashes or lesions noted Extrem: General: normal to inspection Psych: Affect: normal affect DS: Data Data Completed and Pending Labs on day of discharge: Labs from last 24 hours 08/30/24 08/30/24 08/29/24 07:37 06:01 20:50 WBC 8.8 RBC 3.28 L Hgb 9.7 L Hct 30.9 L MCV 94.2 MCH 29.6 MCHC 31.4 L RDW 15.1 H Plt Count 221 MPV 9.2 Immature Gran % (Auto) 0.8 H Neut % (Auto) 49.2 Lymph % (Auto) 31.4 [place] % (Auto) 13.1 H Eos % (Auto) 5.0 H Baso % (Auto) 0.5 Lymph # (Auto) 2.75 [place] # (Auto) 1.2 H Eos # (Auto) 0.4 H Baso # (Auto) 0.0 Abs Immat Gran (auto) 0.07 H Absolute Neuts (auto) 4.3 Absolute Nucleated RBC 0.000 Nucleated RBC % 0.0
[2024-08-30 11:57] LABS: Glucose Point of Care 117 mg/dl (65-105)
[2024-08-30 14:34] LABS: Protein, Total 5.5 g/dL (6.1-8.1)
[2024-08-30 15:17] VITALS: BP 154/66; PULSE 62; RESP 20; TEMP 36.9; O2SAT 97
[2024-09-03 09:23] LABS: Abnormal Protein Band 1 0.7 g/dL (NONE DETECTED); Albumin 2.5 g/dL (3.8-4.8); Alpha 1 Globulin 0.2 g/dL (0.2-0.3); Alpha 2 Globulin 0.8 g/dL (0.5-0.9); Beta 1 Globulin 0.4 g/dL (0.4-0.6); Gamma Globulin 0.8 g/dL (0.8-1.7)
[2024-09-05 12:38] LABS: Abnormal Protein Band 1 57 mg/dL (NONE DETECTED)
== END 2024-08-30 17:00 | disposition home health service (06) | DRG 871 ==
LOC: ANHED 12:53 → ANH3MEDSUR 13:20
PROVIDERS: Internal Medicine Nephrology; Nurse Practitioner Acute Care; Nurse Practitioner Family; Registered Nurse; Student in an Organized Health Care Education/Training Program; Admitting Provider Internal Medicine; Emergency Provider Preventive Medicine Aerospace Medicine; PCP Emergency Medicine; Visit Provider Nurse Practitioner Family
DX: A41.9 Sepsis, unspecified organism (principal); R65.21 Severe sepsis with septic shock; I50.42 Chronic combined systolic (congestive) and diastolic (congestive) heart failure; N17.9 Acute kidney failure, unspecified; I13.0 Hypertensive heart and chronic kidney disease with heart failure and stage 1 through stage 4 chronic kidney disease, or unspecified chronic kidney disease; N30.00 Acute cystitis without hematuria; B95.2 Enterococcus as the cause of diseases classified elsewhere; B96.1 Klebsiella pneumoniae [K. pneumoniae] as the cause of diseases classified elsewhere; E11.22 Type 2 diabetes mellitus with diabetic chronic kidney disease; E78.5 Hyperlipidemia, unspecified; I48.0 Paroxysmal atrial fibrillation; F17.210 Nicotine dependence, cigarettes, uncomplicated; N18.31 Chronic kidney disease, stage 3a; N31.9 Neuromuscular dysfunction of bladder, unspecified; N40.0 Benign prostatic hyperplasia without lower urinary tract symptoms; Z90.49 Acquired absence of other specified parts of digestive tract; Z86.73 Personal history of transient ischemic attack (TIA), and cerebral infarction without residual deficits; Z66 Do not resuscitate
CPT/HCPCS: 36415; 76775; 80048; 80053; 81001; 82550; 82570; 82948; 83036; 83605; 84145; 84155; 84156; 84165; 84166; 84300; 84439; 84443; 84480; 84540; 85025; 85027; 85999; 87040; 87086; 87186; 96361; 96365; 96366; 96374; 96375; 96376; 97116; 97161; 97165; 99285; A9270; G0378; J0290; J0692; J0696; J7030

== ENCOUNTER 2024-09-07 10:07 | Outpatient (NON) | payer MEDICARE, OTHER, SELFPAY ==
[2024-09-07 10:20] LABS: Hematocrit 31.3 % (42.0-52.0); Hemoglobin 10.1 g/dL (14.0-18.0); Mean Corpuscular HGB Conc 32.3 g/dl (32-36); Mean Corpuscular Hemoglobin 30.1 pg (26-34); Mean Corpuscular Volume 93.4 fl (80-100); Mean Platelet Volume 9.3 fl (7.4-10.4); Platelet Count Result 288 k/mm3 (150-375); Red Blood Count 3.35 M/mm3 (4.6-6.20); Red Cell Distribution Width 15.1 % (11.5-14.5); White Blood Count 11.5 K/mm3 (4.5-10.0)
== END 2024-09-07 10:08 | disposition home or self-care (01) ==
PROVIDERS: PCP Emergency Medicine; Visit Provider Emergency Medicine
DX: A41.9 Sepsis, unspecified organism (principal); N30.01 Acute cystitis with hematuria; I48.0 Paroxysmal atrial fibrillation; I48.92 Unspecified atrial flutter; I11.0 Hypertensive heart disease with heart failure; I50.40 Unspecified combined systolic (congestive) and diastolic (congestive) heart failure
CPT/HCPCS: 85027

== ENCOUNTER 2024-10-15 13:41 | Inpatient (IN) | payer MEDICARE, OTHER, SELFPAY ==
--- NOTE | ~2024-10-15 | XR_ITS ---
MODIFIED ESOPHAGRAM HISTORY: Prior aspiration TECHNIQUE: Modified barium esophagram was performed on 10/16/2024. I administered fluoroscopy and per formed the exam with speech pathologist. Patient was seated for lateral fluoroscopic imaging for ing estion of thin liquids, pudding, solids and quantified amounts, followed by thin liquids in uncontrol led amounts. This was recorded on tape. A single fluoroscopic spot image was also recorded. The DAP f or this procedure was 1.642 Gycm2. The amount of fluoroscopy time used during this procedure was 2.9 minutes. FINDINGS: Oral stage: Adequate function. Pharyngeal stage: There is reduced laryngeal elevation and tongue base retraction. Reduced pharyngeal squeeze. There is both vallecular and piriform sinus residue. There was laryngeal penetration with s ilent aspiration.. Cervical/esophageal stage: Adequate function. IMPRESSION: Pharyngeal dysphagia with laryngeal penetration and silent aspiration. Please correlate with speech pathologist findings and specific feeding recommendations. Reviewed, dictated and finalized at location A. [employer] IMPRESSION: Pharyngeal dysphagia with laryngeal penetration and silent aspirati on. Please correlate with speech pathologist findings and specific feeding rec ommendations.
--- NOTE | ~2024-10-15 | XR_ITS ---
EXAMINATION: XR chest 2V DATE: 10/15/2024 15:52 INDICATION: Fever and weakness TECHNIQUE: frontal and lateral views of the chest were obtained. COMPARISON: Chest radiograph dated 05/11/2024 FINDINGS: Airspace opacities at the lingula. Right lung remains clear. No pulmonary edema, pleural effusion or pneumothorax. Calcified right hilar lymph nodes consistent with old granulomatous disease. Heart size is normal. IMPRESSION: 1. Lingular opacities concerning for pneumonia. Reviewed, dictated and finalized at location A. FIRST
--- NOTE | ~2024-10-15 | CT_ITS ---
EXAMINATION: CT brain wo con DATE: 10/15/2024 15:59 INDICATION: episode of confusion . TECHNIQUE: Computed tomography (CT) of the head was performed without intravenous contrast. The mA wa s adjusted according to patient size. Iterative reconstruction technique was employed. The dose-lengt h product was 605.33 mGy-cm. COMPARISON: 03/19/2024. FINDINGS: No acute intracranial hemorrhage or extra-axial fluid collection. No hydrocephalus, mass, or herniation. No acute ischemic infarct. Unremarkable dural venous sinus attenuation. No acute osseous abnormality. The aerated spaces are clear. Mild atrophy and chronic white matter change. Atherosclerotic intracranial calcification. Old bilater al basal ganglia lacunar infarcts. IMPRESSION: No acute intracranial process. Reviewed, dictated and finalized at location K. [employer]ICATION
[2024-10-15 13:49] VITALS: BP 106/52; PULSE 93; RESP 17; TEMP 36.6; O2SAT 100
--- NOTE | 2024-10-15 15:27 | ED_ITS ---
HPI - General Adult General Chief complaint: Fever <GILLES Tejada Last Filed: 10/15/24 15:33> Stated complaint: fever out of it <GILLES Tejada Last Filed: 10/15/24 15:33> Time Seen by Provider: 10/15/24 15:27 <GILLES Tejada Last Filed: 10/15/24 15:33> Focused HPI: Patient is a 69 y/o male, with PMH of CVA, PEG tube, AFIB on Eliquis, neurogenic bladder with chronic indwelling Bosch catheter, who presents to the ED with family with report of weakness, concern for UTI. Patient reports having increased generalized weakness over the past several days. States he can hardly move around his house d/t weakness. Denies focal weakness. Family reports patient had a fever on Tuesday and this morning. They also noticed the patient was slightly out of it this morning, confused and staring off into space. They are concerned for UTI. Patient has hx of similar. Catheter was last replaced by home health on 10/04. Patient denies significant abd or back pain. Denies cough. GENERAL: Elderly, frail, and in no acute distress. HEAD: Normocephalic, atraumatic. CHEST: Clear to auscultation. ?No respiratory distress. Norman mild rhonchi. No wheezing. HEART: Regular rate and rhythm.? NEURO: ?Alert and oriented x3. Patient screened in triage and initial orders placed.? ?Additional care and disposition to be based upon?diagnostic testing and treatment. <GILLES Tejada Last Filed: 10/15/24 15:33> Source: patient <GILLES Tejada Last Filed: 10/15/24 15:33> Mode of arrival: ambulatory <GILLES Tejada Last Filed: 10/15/24 15:33> Limitations: no limitations <GILLES Tejada Last Filed: 10/15/24 15:33> Related Data Home medications: Home Medications Medication Instructions Recorded Confirmed tamsulosin 0.4 mg capsule 0.4 mg PO DAILY 11/16/23 08/24/24 apixaban 5 mg tablet 5 mg PO BID 05/01/24 08/24/24 bethanechol chloride 5 mg tablet 5 mg TID 08/24/24 08/24/24 <Elizabeth Porter PA-C - Last Filed: 10/15/24 15:33> Allergies/adverse reactions: Allergies Allergy/AdvReac Type Severity Reaction Status Date / Time No Known Allergies Allergy Mild Verified 08/24/24 10:55 <Elizabeth Porter PA-C - Last Filed: 10/15/24 15:33> Review of Systems Review of Systems: All systems are reviewed and are negative unless stated otherwise in the HPI. <Becky Elise MD - Last Filed: 10/15/24 21:18> PMFSH Past Medical History Medical History: Medical History Anxiety Arthritis BPH loc w urin obs/LUTS Chronic anemia CKD (chronic kidney disease) Combined systolic and diastolic congestive heart failure CVA (cerebral vascular accident) Per MRI on 03/20/2024, old infarcts in the bilateral basal ganglia Hyperlipidemia Hypertension Indwelling Bosch catheter present Neurogenic bladder Non-insulin dependent diabetes mellitus Normocytic anemia Obstructive uropathy PAF (paroxysmal atrial fibrillation) TIA (transient ischemic attack) <Elizabeth Porter PA-C - Last Filed: 10/15/24 15:33> Surgical History Surgical History: Surgical History History of appendectomy <Elizabeth Porter PA-C - Last Filed: 10/15/24 15:33> Family History Family History: Family History Father Cerebrovascular accident <GILLES Tejada Last Filed: 10/15/24 15:33> Social History Social History: Social History Social History: Has a daughter Smoking packs per day: 1 Smoking cigarettes per day: 20.0 Years smoked: 30 Smoking pack-years: 30.00 Smoking status: Current every day smoker Tobacco type: cigarettes Second hand tobacco smoke exposure: Yes Additional smoking assessment comments: pt states he started smoking when he go t at the age of 39 Alcohol intake: former Drinks per week: 1 Alcohol use details: couple times a week (happy hour) Substance use: current Substance use type: marijuana Other substance usage details: smokes marijuana when friends bring it to him Last use: 08/22/2024 Do You Feel Safe in your Home?: Yes Lack of Transportation: No Lack of Food: Never True Current Housing: I Have Housing Concerned About Future Housing: No Difficulty Paying Gas/Electric Bills: No Difficulty Paying for Meds: No Currently Unemployed: No Education: High School Diploma/GED Difficulty w/ Childcare or Family Care: No Living arrangements: assisted living Spiritual care concerns: No <Elizabeth Porter PA-C - Last Filed: 10/15/24 15:33> Exam Narrative: General: Alert, awake, afebrile, in no acute distress. HEENT: PERRL, no rhinorrhea, no post nasal drip, oropharynx clear. Neck: Trachea midline, no JVD, no lymphadenopathy. Cardiovascular: Regular rate and rhythm, no murmurs, rubs or gallops, no peripheral edema. Respiratory: Clear to auscultation bilaterally, no tachypnea, no wheezing, no rhonchi, no rubs, no respiratory distress. Abdomen: Soft, nontender, nondistended, no rebound, no guarding, no peritoneal signs. Musculoskeletal: No joint swelling or deformity, normal muscle tone. Skin: No rashes or petechia, no signs of infection. Psychiatric: Alert and oriented, normal behavior and judgment for situation. Neurological: Alert and oriented to person, place, and time. Follows all commands. No focal deficits, speech is clear and fluent. <Becky Elise MD - Last Filed: 10/15/24 21:18> Course Vital Signs Vital signs: Vital Signs Temperature 98 F 10/15/24 13:49 Pulse Rate 93 10/15/24 13:49 Respiratory Rate 17 10/15/24 13:49 Blood Pressure 106/52 L 10/15/24 13:49 Pulse Oximetry 100 10/15/24 13:49 Temperature 98 F 10/15/24 19:54 Pulse Rate 77 10/15/24 19:54 Respiratory Rate 20 10/15/24 19:54 Blood Pressure 113/79 10/15/24 19:54 Pulse Oximetry 100 10/15/24 19:54 <Elizbaeth Porter PA-C - Last Filed: 10/15/24 15:33> Vital Signs Temperature 98 F 10/15/24 13:49 Pulse Rate 93 10/15/24 13:49 Respiratory Rate 17 10/15/24 13:49 Blood Pressure 106/52 L 10/15/24 13:49 Pulse Oximetry 100 10/15/24 13:49 Temperature 98 F 10/15/24 19:54 Pulse Rate 77 10/15/24 19:54 Respiratory Rate 20 10/15/24 19:54 Blood Pressure 113/79 10/15/24 19:54 Pulse Oximetry 100 10/15/24 19:54 <Becky Elise MD - Last Filed: 10/15/24 21:18> Medical Decision Making MDM Narrative Medical decision making narrative: MSE by RELL in triage. <Elizabeth Porter PA-C - Last Filed: 10/15/24 15:33> MSE by RELL in triage. The patient was evaluated by myself in the emergency department. History is obtained from patient who is an independent historian and physical exam was perf ormed. External medical records were reviewed at this time. IV was established and pertinent tests were ordered. Patient was administered 1 L IV fluid bolus with normal saline. Laboratory results obtained revealing a leukocytosis of 17.7, creatinine of 2.7, otherwise unremarkable. Urinalysis currently pending. Imaging studies obtained included CXR which was independently interpreted by me revealing a lingular opacities concerning for pneumonia, which is pending final radiology interpretation. CT brain without IV contrast was also obtained and independently interpreted by me revealing no acute intracranial process. At this time patient was started on cefepime to cover him for pneumonia and a UTI given his history of multi-drug resistant urinary tract infections. Differential diagnosis considerations include infectious process such as UTI/ pneumonia, dehydration, acute kidney injury, sepsis. Comorbidities impacting this visit include indwelling Bosch catheter, history of multi-drug resistant urinary tract infections. I have evaluated and discussed social determinants of health with the patient that could potentially impact subsequent diagnosis and treatment plans. On repeat assessment of the patient, reevaluation revealed that the patient is doing well and is in no acute distress. Patient symptoms have improved since he arrived to our emergency department. Repeat vital signs were all reviewed and noted to be stable. Differential diagnosis and treatment plan were discussed with the patient at bedside. Patient agrees with discussion and after shared medical decision making agrees with admission. All questions were answered to the patient's satisfaction. Patient will be admitted to our general medical floor under the care of Dr. Dooley and case was discussed with the on-call DIRECTOR BUSINESS TRAVEL Sharif at 2024 he accepted admission. The patient remains stable and ready for admission. <Becky Elise MD - Last Filed: 10/15/24 21:18> Vital Signs Vital Signs: Vital Signs Temperature 98 F 10/15/24 13:49 Pulse Rate 93 10/15/24 13:49 Respiratory Rate 17 10/15/24 13:49 Blood Pressure 106/52 L 10/15/24 13:49 Pulse Oximetry 100 10/15/24 13:49 Temperature 98 F 10/15/24 19:54 Pulse Rate 77 10/15/24 19:54 Respiratory Rate 20 10/15/24 19:54 Blood Pressure 113/79 10/15/24 19:54 Pulse Oximetry 100 10/15/24 19:54 <Elizabeth Porter PA-C - Last Filed: 10/15/24 15:33> Vital Signs Temperature 98 F 10/15/24 13:49 Pulse Rate 93 10/15/24 13:49 Respiratory Rate 17 10/15/24 13:49 Blood Pressure 106/52 L 10/15/24 13:49 Pulse Oximetry 100 10/15/24 13:49 Temperature 98 F 10/15/24 19:54 Pulse Rate 77 10/15/24 19:54 Respiratory Rate 20 10/15/24 19:54 Blood Pressure 113/79 10/15/24 19:54 Pulse Oximetry 100 10/15/24 19:54 <Becky Elise MD - Last Filed: 10/15/24 21:18> Lab Data Result diagrams: 10/15/24 15:33 10/15/24 15:33 <Elizabeth Porter PA-C - Last Filed: 10/15/24 15:33> Labs: Lab Results 10/15/24 10/15/24 Range/Units 15:33 19:43 WBC 17.7 H (4.5-10.0) K/mm3 RBC 3.54 L (4.6-6.20) M/mm3 Hgb 10.8 L (14.0-18.0) g/dL Hct 33.8 L (42.0-52.0) % MCV 95.5 (80-100) fl MCH 30.5 (26-34) pg MCHC 32.0 (32-36) g/dl RDW 15.9 H (11.5-14.5) % Plt Count 289 (150-375) k/mm3 MPV 8.8 (7.4-10.4) fl Immature Gran % (Auto) 0.7 H (0-0.5) % Neut % (Auto) 82.5 H (45.5-73.1) % Lymph % (Auto) 11.0 L (18.3-44.2) % [place] % (Auto) 5.1 (2.6-8.5) % Eos % (Auto) 0.5 (0-4.4) % Baso % (Auto) 0.2 (0.2-1.2) % Lymph # (Auto) 1.95 (0.9-3.2) K/mm3 Madison # (Auto) 0.9 H (0.1-0.6) K/mm3 Eos # (Auto) 0.1 (0-0.3) K/mm3 Baso # (Auto) 0.0 (0.0-0.1) K/mm3 Abs Immat Gran (auto) 0.13 H (0.00-0.031) K/mm3 Absolute Neuts (auto) 14.6 H (1.3-6.7) K/mm3 Absolute Nucleated RBC 0.000 (0.0-0.012) K/mm3 Nucleated RBC % 0.0 (0.0-0.2) % PT 14.3 (11.1-14.7) Seconds INR 1.1 APTT 35.8 (22.3-36.8) Seconds Sodium 139 (137-145) mmol/L Potassium 4.4 (3.4-5.0) mmol/L Chloride 102 (98-107) mmol/L Carbon Dioxide 26 (22-30) mmol/L Anion Gap 11 (4-12) mmol/L BUN 45 H (9-20) mg/dL Creatinine 2.70 H (0.7-1.3) mg/dL Estim Creat Clear Calc Not Reportable Estimated GFR 23 L (59 - ) Glucose 144 H (65-110) mg/dL Lactic Acid 1.9 (0.7-2.0) mmol/L Calcium 8.6 (8.4-10.2) mg/dL Total Bilirubin 1.1 (0.2-1.3) mg/dL AST 36 (17-59) U/L ALT 32 (6-50) U/L Alkaline Phosphatase 132 H (38-126) U/L C-Reactive Protein 4.7 H (<1.0) mg/dL Total Protein 8.0 (6.3-8.2) g/dL Albumin 3.9 (3.5-5.1) g/dL <Elizabeth Porter PA-C - Last Filed: 10/15/24 15:33> Lab Results 10/15/24 10/15/24 Range/Units 15:33 19:43 WBC 17.7 H (4.5-10.0) K/mm3 RBC 3.54 L (4.6-6.20) M/mm3 Hgb 10.8 L (14.0-18.0) g/dL Hct 33.8 L (42.0-52.0) % MCV 95.5 (80-100) fl MCH 30.5 (26-34) pg MCHC 32.0 (32-36) g/dl RDW 15.9 H (11.5-14.5) % Plt Count 289 (150-375) k/mm3 MPV 8.8 (7.4-10.4) fl Immature Gran % (Auto) 0.7 H (0-0.5) % Neut % (Auto) 82.5 H (45.5-73.1) % Lymph % (Auto) 11.0 L (18.3-44.2) % Madison % (Auto) 5.1 (2.6-8.5) % Eos % (Auto) 0.5 (0-4.4) % Baso % (Auto) 0.2 (0.2-1.2) % Lymph # (Auto) 1.95 (0.9-3.2) K/mm3 Madison # (Auto) 0.9 H (0.1-0.6) K/mm3 Eos # (Auto) 0.1 (0-0.3) K/mm3 Baso # (Auto) 0.0 (0.0-0.1) K/mm3 Abs Immat Gran (auto) 0.13 H (0.00-0.031) K/mm3 Absolute Neuts (auto) 14.6 H (1.3-6.7) K/mm3 Absolute Nucleated RBC 0.000 (0.0-0.012) K/mm3 Nucleated RBC % 0.0 (0.0-0.2) % PT 14.3 (11.1-14.7) Seconds INR 1.1 APTT 35.8 (22.3-36.8) Seconds Sodium 139 (137-145) mmol/L Potassium 4.4 (3.4-5.0) mmol/L Chloride 102 (98-107) mmol/L Carbon Dioxide 26 (22-30) mmol/L Anion Gap 11 (4-12) mmol/L BUN 45 H (9-20) mg/dL Creatinine 2.70 H (0.7-1.3) mg/dL Estim Creat Clear Calc Not Reportable Estimated GFR 23 L (59 - ) Glucose 144 H (65-110) mg/dL Lactic Acid 1.9 (0.7-2.0) mmol/L Calcium 8.6 (8.4-10.2) mg/dL Total Bilirubin 1.1 (0.2-1.3) mg/dL AST 36 (17-59) U/L ALT 32 (6-50) U/L Alkaline Phosphatase 132 H (38-126) U/L C-Reactive Protein 4.7 H (<1.0) mg/dL Total Protein 8.0 (6.3-8.2) g/dL Albumin 3.9 (3.5-5.1) g/dL <Becky Elise MD - Last Filed: 10/15/24 21:18> Discharge Plan Discharge Clinical Impression: Sepsis, Lobar pneumonia, History of recurrent urinary tract infection <MALACHI Tejada-C - Last Filed: 10/15/24 15:33> Patient Disposition: Still a Patient <Elizabeth Porter PA-C - Last Filed: 10/15/24 15:33> Condition: Stable <Elizabeth Porter PA-C - Last Filed: 10/15/24 15:33> Prescriptions: No Action tamsulosin 0.4 mg capsule 0.4 mg PO DAILY atorvastatin 40 mg Tablet 40 mg feeding tube DAILY Qty: 30 0RF metoprolol tartrate 50 mg Tablet 50 mg feeding tube Q12HR Qty: 60 0RF mirtazapine [Remeron] 15 mg Tablet 15 mg feeding tube HS Qty: 30 0RF acetaminophen [Nortemp] 160 mg/5 mL Suspension 650 mg feeding tube Q4H PRN (Reason: Fever or Pain Rated 1-6) Qty: 120 0RF finasteride [Proscar] 5 mg Tablet 5 mg feeding tube QAM Qty: 30 0RF bethanechol chloride 5 mg tablet 5 mg TID levofloxacin 750 mg tablet 750 mg PO DAILY Qty: 1 0RF Rx Instructions: take dose on 09/01/24 apixaban 5 mg Tablet 5 mg PO BID <Elizabeth Porter PA-C - Last Filed: 10/15/24 15:33> Follow-up/Referrals: Ronnell Zhang MD [Primary Care Provider] - <Elizabeth Porter PA-C - Last Filed: 10/15/24 15:33> Time of Disposition: 21:17 <Elizabeth Porter PA-C - Last Filed: 10/15/24 15:33> 21:17 <Becky Elise MD - Last Filed: 10/15/24 21:18>
[2024-10-15 15:39] LABS: Basophils Percent Auto 0.2 % (0.2-1.2); Eosinophils Absolute Auto 0.1 K/mm3 (0-0.3); Eosinophils Percent Auto 0.5 % (0-4.4); Hematocrit 33.8 % (42.0-52.0); Hemoglobin 10.8 g/dL (14.0-18.0); Immature Granulocyte Absolute 0.13 K/mm3 (0.00-0.031); Immature Granulocyte Percent A 0.7 % (0-0.5); Lymphocytes Absolute Auto 1.95 K/mm3 (0.9-3.2); Mean Corpuscular Hemoglobin 30.5 pg (26-34); Mean Corpuscular Volume 95.5 fl (80-100); Mean Platelet Volume 8.8 fl (7.4-10.4); Monocytes Absolute Auto 0.9 K/mm3 (0.1-0.6); Monocytes Percent Auto 5.1 % (2.6-8.5); Neutrophils Absolute Auto 14.6 K/mm3 (1.3-6.7); Neutrophils Percent Auto 82.5 % (45.5-73.1); Platelet Count Result 289 k/mm3 (150-375); Red Blood Count 3.54 M/mm3 (4.6-6.20); Red Cell Distribution Width 15.9 % (11.5-14.5); White Blood Count 17.7 K/mm3 (4.5-10.0)
[2024-10-15 15:55] LABS: Alanine Aminotransferase 32 U/L (6-50); Albumin Level 3.9 g/dL (3.5-5.1); Alkaline Phosphatase 132 U/L (38-126); Anion Gap 11 mmol/L (4-12); Aspartate Amino Transferase 36 U/L (17-59); Bilirubin,Total 1.1 mg/dL (0.2-1.3); Blood Urea Nitrogen 45 mg/dL (9-20); CRP 4.7 mg/dL (<1.0); Calcium 8.6 mg/dL (8.4-10.2); Carbon Dioxide 26 mmol/L (22-30); Chloride 102 mmol/L (98-107); Estimated Glomerular Filt Rate 23; Glucose 144 mg/dL (65-110); Potassium 4.4 mmol/L (3.4-5.0); Sodium 139 mmol/L (137-145)
[2024-10-15 17:01] LABS: Lactic Acid Reflex 1.9 mmol/L (0.7-2.0)
[2024-10-15 19:25] VITALS: O2SAT 99
[2024-10-15 19:54] VITALS: BP 113/79; PULSE 77; RESP 20; TEMP 36.6; O2SAT 100
[2024-10-15] MEDS: SODIUM CHLORIDE 0.9% IV 1,000 ML 999 ML IV CONT ×2 (19:54→20:58)
[2024-10-15 20:03] LABS: INR 1.1; Prothrombin Time 14.3 Seconds (11.1-14.7)
[2024-10-15 20:04] LABS: Partial Thromboplastin Time 35.8 Seconds (22.3-36.8)
--- NOTE | 2024-10-15 20:19 | P.HP_ITS ---
H&P: HPI History of Present Illness Date/Time: 10/15/24 20:19 Chief Complaint: sepsis Narrative: This is a 69-year-old male patient past medical history of CVA PEG to AFib on Eliquis neurogenic bladder with chronic indwelling Bosch catheter achieved to the emergency department complaining of weakness fever confusion with concern for UTI. Workup in the emergency department revealed chest x-ray findings of left lingular opacity concerning for pneumonia. Was also presumed patient may have a UTI although urinalysis was collected while in the emergency department. Patient had elevated white blood cell count of 17.7 was tachycardic so he met sepsis criteria. IV antibiotics of cefepime and azithromycin were started in the emergency department. Patient is awake alert somewhat confused. He has a G-tube in place but he eats and drinks normally at this point. Patient was also noted to have elevated creatinine 2.7 and LEANDRO. He did receive 1 liter IV fluids in the emergency department. Patient having active chills at time of assessment. Additionally his Bosch catheter was in the process of being changed in order to collect clean urine sample. He also had nasal swabs collected to check for MRSA, COVID or other causes of pneumonia. Review of Systems Review of Systems: All systems reviewed & are unremarkable except as noted in HPI and below PMFSH Past Medical History Medical History Anxiety Arthritis BPH loc w urin obs/LUTS Chronic anemia CKD (chronic kidney disease) Combined systolic and diastolic congestive heart failure CVA (cerebral vascular accident) Per MRI on 03/20/2024, old infarcts in the bilateral basal ganglia Hyperlipidemia Hypertension Indwelling Bosch catheter present Neurogenic bladder Non-insulin dependent diabetes mellitus Normocytic anemia Obstructive uropathy PAF (paroxysmal atrial fibrillation) TIA (transient ischemic attack) Surgical History Surgical History History of appendectomy Family History Family History Father Cerebrovascular accident Social History Social History Social History: Has a daughter Smoking packs per day: 1 Smoking cigarettes per day: 20.0 Years smoked: 20 Smoking pack-years: 20.00 Smoking status: Current every day smoker Tobacco type: cigarettes Second hand tobacco smoke exposure: Yes Additional smoking assessment comments: pt states he started smoking when he got at the age of 39 Alcohol intake: former Drinks per week: 1 Alcohol use details: couple times a week (happy hour) Substance use: current Substance use type: marijuana Other substance usage details: smokes marijuana when friends bring it to him Last use: 1 week ago Do You Feel Safe in your Home?: Yes Lack of Transportation: No Lack of Food: Never True Current Housing: I Have Housing Concerned About Future Housing: No Difficulty Paying Gas/Electric Bills: No Difficulty Paying for Meds: No Currently Unemployed: No Education: High School Diploma/GED Difficulty w/ Childcare or Family Care: No Living arrangements: assisted living Spiritual care concerns: No Meds Home Medications and Allergies Home Medications Medication Instructions Recorded Confirmed Type tamsulosin 0.4 mg capsule 0.4 mg PO DAILY 11/16/23 10/15/24 History apixaban 5 mg tablet 5 mg PO BID 05/01/24 10/15/24 History bethanechol chloride 5 mg tablet 5 mg PO TID 08/24/24 10/15/24 History acetaminophen 160 mg/5 mL oral 650 mg PO Q4H PRN Fever or Pain 10/15/24 10/15/24 History suspension (Nortemp) Rated 1-6 atorvastatin 40 mg tablet 40 mg PO DAILY 10/15/24 10/15/24 History finasteride 5 mg tablet (Proscar) 5 mg PO QAM 10/15/24 10/15/24 History metoprolol tartrate 50 mg tablet 50 mg PO Q12HR 10/15/24 10/15/24 History mirtazapine 15 mg tablet (Remeron) 15 mg PO HS 10/15/24 10/15/24 History multivit with minerals-iron 18 1 tablet PO DAILY 10/15/24 10/15/24 History mg-folic ac 400 mcg-vit K 25 mcg tablet (Adults Multivitamin) Allergies Allergy/AdvReac Type Severity Reaction Status Date / Time No Known Allergies Allergy Mild Verified 08/24/24 10:55 Vital Signs Vital Signs - 24 hr 10/15/24 13:49 10/15/24 19:25 10/15/24 19:54 Temperature 36.6 C 36.6 C Pulse Rate 93 77 Respiratory Rate 17 20 Blood Pressure 106/52 L 113/79 Pulse Oximetry 100 99 100 Exam Narrative: GENERAL: chronically ill appearing, active chills, mildly confused/cannot recall why he has a PEG tube HEAD: Normocephalic, atraumatic. ENT:? Mucous membranes moist. CHEST: Diminished lung sounds with slight crackles, frequent cough HEART: Regular rate and Irregular rhythm. ? Normal peripheral pulses. ABDOMEN: Soft, nontender, nondistended. PEG tube in place and clamped EXTREMITIES: Normal range of motion. No peripheral edema. SKIN: Warm dry normal color NEURO: Awake, alert, mild confusion PSYCH: Normal mood and affect H&P: Results Labs Labs: Short CBC 10/15/24 Range/Units 15:33 WBC 17.7 H (4.5-10.0) K/mm3 Hgb 10.8 L (14.0-18.0) g/dL Hct 33.8 L (42.0-52.0) % Plt Count 289 (150-375) k/mm3 BMP 10/15/24 15:33 Sodium 139 Potassium 4.4 Chloride 102 Carbon Dioxide 26 BUN 45 H Creatinine 2.70 H Glucose 144 H Calcium 8.6 Liver Function 10/15/24 Range/Units 15:33 Total Bilirubin 1.1 (0.2-1.3) mg/dL AST 36 (17-59) U/L ALT 32 (6-50) U/L Alkaline Phosphatase 132 H (38-126) U/L Albumin 3.9 (3.5-5.1) g/dL Pulse Oximetry SpO2 results: 98-100% on room air Attestation: I personally reviewed and interpreted this pulse oximetry as follows: Interpretation: no need for supplemental oxygenation at this time Imaging Chest x-ray: Radiologist's impression: EXAMINATION: XR chest 2V DATE: 10/15/2024 15:52 INDICATION: Fever and weakness TECHNIQUE: frontal and lateral views of the chest were obtained. COMPARISON: Chest radiograph dated 05/11/2024 FINDINGS: Airspace opacities at the lingula. Right lung remains clear. No pulmonary edema, pleural effusion or pneumothorax. Calcified right hilar lymph nodes consistent with old granulomatous disease. Heart size is normal. IMPRESSION: 1. Lingular opacities concerning for pneumonia. Reviewed, dictated and finalized at location A. [employer] [facility] CT scan - head: Radiologist's impression: EXAMINATION: CT brain wo con DATE: 10/15/2024 15:59 INDICATION: episode of confusion . TECHNIQUE: Computed tomography (CT) of the head was performed without intravenous contrast. The mA was adjusted according to patient size. Iterative reconstruction technique was employed. The dose-length product was 605.33 mGy- cm. COMPARISON: 03/19/2024. FINDINGS: No acute intracranial hemorrhage or extra-axial fluid collection. No hydrocephalus, mass, or herniation. No acute ischemic infarct. Unremarkable dural venous sinus attenuation. No acute osseous abnormality. The aerated spaces are clear. Mild atrophy and chronic white matter change. Atherosclerotic intracranial calcification. Old bilateral basal ganglia lacunar infarcts. IMPRESSION: No acute intracranial process. Reviewed, dictated and finalized at location K. [employer] Assessment and Plan Assessment and plan (1) Pneumonia: Code(s): J18.9 - Pneumonia, unspecified organism Status: Acute Assessment and Plan: -opacities in the lingula concerning for pneumonia -MRSA, Covid/Flu/RSV, mycoplasma, Chlamydia pneumoniae, pneumococcal antigen and Legionella antigen testing sent -cefepime and azithromycin started in the emergency department will be continued - prior PEG tube in place, prior history aspiration pneumonia, patient poor historian regarding PEG tube and pneumonia diagnosis, ordered bedside swallow - ordered soft and bite sized renal diet due to no dentures present currently and worsening renal function (2) Sepsis: Code(s): A41.9 - Sepsis, unspecified organism Status: Resolved Assessment and Plan: - initial concern for UTI upon presentation due to long-term indwelling Bosch catheter - UA not collected in the emergency department prior to antibiotics initiated - cefepime chosen due to concern for UTI and history of prior resistant infections - catheter changed on the floor and urine sample sent from newly placed catheter - UA shows trace leukocyte esterase 6-10 rbc's 0-5 wbc's no bacteria but this was several hours after cefepime was given (3) Acute kidney injury superimposed on CKD: Code(s): N17.9 - Acute kidney failure, unspecified; N18.9 - Chronic kidney disease, unspecified Status: Acute Assessment and Plan: - creatinine 2.7 BUN 45 estimated GFR 23 - baseline creatinine 2.1-2.5 1 month ago - infectious Disease pharmacist consulted for dosing recommendations of antibiotics due to LEANDRO on CKD (4) Diabetes: Qualifiers: Diabetes mellitus type: type 2 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 Diabetes mellitus complication status: without complication Qualified Code(s): E11.9 - Type 2 diabetes mellitus without complications Code(s): E11.9 - Type 2 diabetes mellitus without complications Status: Chronic Assessment and Plan: - hemoglobin A1c 6.7 - ACHS fingerstick glucose with sliding scale insulin - patient not on home diabetic medications per med rec (5) Hypertension: Qualifiers: Hypertension type: primary hypertension Qualified Code(s): I10 - Essential (primary) hypertension Code(s): I10 - Essential (primary) hypertension Status: Chronic Assessment and Plan: - blood pressure moderately elevated on admit, continue home medications Plan diet: Renal, soft and by sized, bedside swallow ordered code status: Full code Quality VTE Prophylaxis VTE prophylaxis: pharmacologic ordered (Eliquis) Dictation performed by [employer] direct speech recognition software, therefore inhalation therapist variants and typographical errors may occur. Hospitalist [facility] Advance Care Plan I have confirmed that the patient's Advanced Care Plan is present, code status is documented, or surrogate decision maker is listed in patient medical record.: Yes Medication Reconciliation I have utilized all available resources to obtain, update and review the patients current medications (includes all prescriptions, OTC, herbals, cannabis, and nutritional supplements).: Yes
[2024-10-15] MEDS: AZITHROMYCIN 500 MG/NS 250 ML 500 MG/250 ML BAG 250 MG IVPB (20:54)
[2024-10-15 21:24] VITALS: BMI 22.6
--- NOTE | 2024-10-15 21:33 | PC.NURSE ---
1900: upon start of my shift, pt needed a urine sample, pt was refusing urine catheter change due to him stating it was recently changed 2 weeks ago. He states, I would prefer to not have it changed out, I do not want you to do it .
[2024-10-15 21:34] VITALS: BP 147/84; PULSE 92; RESP 18; O2SAT 98
[2024-10-15] MEDS: CEFEPIME 2 GM/NS 50 ML 2 GM/50 ML BAG IVPB (21:37)
--- NOTE | 2024-10-15 22:05 | ADMGEN ---
This patient, Yvan Chau, was admitted to [facility] Surg Room 314-02. Patient/family oriented to hospital policies and general routines including ID bracelet, bed and alarms, visiting hours, pain management, procedures, bathroom and other care routines, personal items, smoking policy, room service/diet, and visiting hours. Information on how to activate the Rapid Response Team has been discussed. Patient/Family are encouraged to report perceived risks to care and to ask questions if they do not understand what they are told or what they should do.
[2024-10-15 22:57] VITALS: BP 165/101; PULSE 100; RESP 18; TEMP 36.4; O2SAT 98
[2024-10-15] MEDS: LIDOCAINE HCL 2% GEL UROJET 10 ML PKG MUCOUS MEM (23:18)
[2024-10-15 23:19] VITALS: PULSE 97
[2024-10-15] MEDS: APIXABAN 5 MG TABLET PO (23:19)
[2024-10-15] MEDS: METOPROLOL TARTRATE 50 MG TAB PO (23:19)
[2024-10-15] MEDS: MIRTAZAPINE 15 MG TABLET PO (23:19)
[2024-10-15] MEDS: BETHANECHOL CHLORIDE 5 MG TABLET PO (23:32)
[2024-10-15 23:33] LABS: Hemoglobin A1C 6.7 % (<5.7)
[2024-10-16] VITALS (14 sets, daily range): BP systolic 111–159; BP diastolic 60–80; PULSE 61–87; RESP 16–20; TEMP 36.2–37.4; O2SAT 94–100; BMI 22.6
[2024-10-16 00:02] LABS: Influenza A QL RT-PCR Negative (Negative); Influenza B QL RT-PCR Negative (Negative); RSV RNA, RT-PCR Negative (Negative); SARS-CoV-2 RNA PCR Negative (Negative)
[2024-10-16 00:37] LABS: MRSA (PCR) NOT DETECTED (NOT DETECTE)
[2024-10-16 01:09] LABS: Add Urine Microscopic? YES; Appearance Urine Clear (Clear); Bacteria Urine None Seen /hpf; Bilirubin Urine Negative (Negative); Blood Urine Non-Hemolyzed Trace (Negative); Color Urine Yellow (Yellow); Glucose Urine UA Negative (Negative); Ketones Urine Negative (Negative); Leukocyte Esterase Ur Trace LEU/UL (Negative); Nitrate Urine Negative (Negative); Non Pathogenic Casts 0-2; Protein Urine 1+ mg/dL (Negative); Specific Grav Ur 1.008 (1.001-1.035); Squamous Epithelial Cell Urine None Seen /hpf (Few); Urobilinogen Urine 0.2 mg/dL (<2.0); WBC Urine 0-5 /hpf (0-3); pH Urine 7.5 (5.0-9.0)
[2024-10-16] MEDS: BETHANECHOL CHLORIDE 5 MG TABLET PO ×3 (06:27→16:50)
[2024-10-16 07:16] LABS: Basophils Percent Auto 0.2 % (0.2-1.2); Eosinophils Absolute Auto 0.1 K/mm3 (0-0.3); Eosinophils Percent Auto 0.7 % (0-4.4); Hematocrit 28.4 % (42.0-52.0); Immature Granulocyte Absolute 0.12 K/mm3 (0.00-0.031); Immature Granulocyte Percent A 0.7 % (0-0.5); Lymphocytes Absolute Auto 2.96 K/mm3 (0.9-3.2); Lymphocytes Percent Auto 16.4 % (18.3-44.2); Mean Corpuscular HGB Conc 31.7 g/dl (32-36); Mean Corpuscular Hemoglobin 30.4 pg (26-34); Mean Corpuscular Volume 95.9 fl (80-100); Mean Platelet Volume 8.6 fl (7.4-10.4); Monocytes Absolute Auto 1.1 K/mm3 (0.1-0.6); Monocytes Percent Auto 5.8 % (2.6-8.5); Neutrophils Absolute Auto 13.7 K/mm3 (1.3-6.7); Neutrophils Percent Auto 76.2 % (45.5-73.1); Platelet Count Result 228 k/mm3 (150-375); Red Blood Count 2.96 M/mm3 (4.6-6.20); Red Cell Distribution Width 15.8 % (11.5-14.5)
[2024-10-16 07:32] LABS: Alanine Aminotransferase 22 U/L (6-50); Alkaline Phosphatase 92 U/L (38-126); Anion Gap 8 mmol/L (4-12); Aspartate Amino Transferase 25 U/L (17-59); Bilirubin,Total 1.2 mg/dL (0.2-1.3); Blood Urea Nitrogen 40 mg/dL (9-20); Calcium 7.8 mg/dL (8.4-10.2); Carbon Dioxide 22 mmol/L (22-30); Chloride 110 mmol/L (98-107); Estimated CRCL calculation 28 ml/min; Estimated Glomerular Filt Rate 28; Glucose 97 mg/dL (65-110); Magnesium 1.6 mg/dL (1.6-2.3); Phosphorus 4.1 mg/dL (2.5-4.5); Potassium 4.2 mmol/L (3.4-5.0); Sodium 140 mmol/L (137-145)
[2024-10-16 07:36] LABS: Glucose Point of Care 98 mg/dl (65-105)
--- NOTE | 2024-10-16 08:15 | P.PNIM_ITS ---
Progress Note: A&P Assessment and Plan (1) Pneumonia: Code(s): J18.9 - Pneumonia, unspecified organism Status: Acute Assessment and Plan: Previous history of CVA with dysphagia currently has been eating orally even though g-tube present * possible aspiration PNA * Bronchodilators. * Chest x-ray reviewed showed Lingular opacities concerning for pneumonia. * incentive spirometry while awake. * sputum culture ordered * influenza/COVID/RSV negative * respiratory panel pending * Cefepime/azithro * supplemental oxygen therapy to maintain oxygen 92% * MBS for evaluation of aspiration/NPO * started tube feedings (2) Dysphagia: Qualifiers: Dysphagia type: oropharyngeal phase Qualified Code(s): R13.12 - Dysphagia, oropharyngeal phase Code(s): R13.10 - Dysphagia, unspecified Status: Acute Assessment and Plan: G-Tube present for previous HX CVA and aspiration * NPO * MBS for evaluation/Started tube feedings * monitor electrolytes replenish as needed (3) Diabetes: Qualifiers: Diabetes mellitus complication status: without complication Diabetes mellitus snf insulin use: without land acquisition specialist use Diabetes mellitus type: type 2 Qualified Code(s): E11.9 - Type 2 diabetes mellitus without complications Code(s): E11.9 - Type 2 diabetes mellitus without complications Status: Chronic Assessment and Plan: * Accu-Cheks Q6hr on tube feedings * sliding scale insulin * No current home medication * Hemoglobin A1c 6.7 * Watch for hypoglycemia/hypoglycemic protocol ordered (4) Hypertension: Qualifiers: Hypertension type: primary hypertension Qualified Code(s): I10 - Essential (primary) hypertension Code(s): I10 - Essential (primary) hypertension Status: Chronic Assessment and Plan: * Hypertensive on admission * Resume metoprolol * reviewed and stable 10/16/24 * Monitor per unit protocol (5) Acute kidney injury superimposed on CKD: Code(s): N17.9 - Acute kidney failure, unspecified; N18.9 - Chronic kidney disease, unspecified Status: Acute Assessment and Plan: * Cr 2.7 POA * Baseline 1.5-2 CKD * Avoid nephrotoxic drugs. * Monitor antihypertensive drug therapy. * Avoid NSAIDs. * Routine CMP monitoring GFR. * Monitor electrolytes especially potassium. * Antibiotic doses depending on creatinine clearance. * Pharmacy does medications. * Routine follow-up with Nephrology as an outpatient. (6) Neurogenic bladder: Code(s): N31.9 - Neuromuscular dysfunction of bladder, unspecified Status: Acute Assessment and Plan: * Chronic indwelling Bosch catheter * UA negative for UTI * Exchanged in the ED * Resume Flomax and Proscar * Monitor urinary output Plan Code status: Full code per patient DVT prophylaxis: [place]ie Stress ulcer prophylaxis: NA PT/OT notes: PT/OT pending Disposition: Patient was admitted for further evaluation and treatment of pneumonia some concern for aspiration will get MBS the, PT/OT pending for re commendations for discharge planning. Time Spent With Patient Time with patient: 15 - 25 minutes Subjective Date/time seen: 10/16/24 08:15 Interval history: Patient is a 69 year old male admitted for further treatment for pneumonia 10/19/2024: Assumed Care Patient still reported SOB and productive cough, diaphoresis and chills. Denied CP dizziness or ABD pain. Review of Systems Review of Systems: All systems reviewed & are unremarkable except as noted in HPI and below Exam Narrative: * GENERAL: chronically ill Alert and oriented x 3 pleasant male. mild diaphoresis No acute distress. * EYES: EOMI. No scleral icterus. PERRLA. * HEENT: Moist mucous membranes. * LUNGS: Diminished to auscultation bilaterally. No accessory muscle use. productive cough * CARDIOVASCULAR: Regular rate and rhythm. No murmur. No JVD. S1-S2 * ABDOMEN: Soft, non tenderness and non-distended. No palpable masses. G-Tub LUQ * EXTREMITIES: No edema. Non-tender * SKIN: No rashes or lesions. Skin warm, dry. * NEUROLOGIC: No focal neurological deficits. mild right sided mouth droop from previous CVA * PSYCHIATRIC: Appropriate mood and affect. Good judgement and insight. Objective Data Vital Signs Vital Signs: Vital Signs - 24 hr 10/15/24 13:49 10/15/24 19:25 10/15/24 19:54 Temperature 98 F 98 F Pulse Rate 93 77 Respiratory Rate 17 20 Blood Pressure 106/52 L 113/79 Pulse Oximetry 100 99 100 Oxygen Delivery 10/15/24 21:34 10/15/24 22:57 10/15/24 23:19 Temperature 97.5 F L Pulse Rate 92 100 97 Respiratory Rate 18 18 Blood Pressure 147/84 H 165/101 H Pulse Oximetry 98 98 Oxygen Delivery 10/15/24 23:28 10/16/24 04:00 Temperature 99.3 F Pulse Rate 87 Respiratory Rate 18 Blood Pressure 136/62 Pulse Oximetry 95 Oxygen Delivery Room Air Intake/Output Intake/Output: Intake & Output 10/13/24 10/14/24 10/15/24 10/16/24 23:59 23:59 23:59 23:59 Intake Total 2300 100 Output Total 700 500 Balance 1600 -400 Meds/Results Medications: Active Medications Generic Name Dose Route Start Last Admin Trade Name Freq PRN Reason Stop Dose Admin Acetaminophen 650 mg 10/15/24 23:57 Acetaminophen 325 Mg Tablet PO Q4H PRN Pain or Fever Apixaban 5 mg 10/15/24 22:35 10/15/24 23:19 Apixaban 5 Mg Tablet PO 5 mg Q12HR BASSEM Administration Atorvastatin Calcium 40 mg 10/16/24 09:00 Atorvastatin 40 Mg Tablet PO DAILY [facility] Azithromycin 500 mg 10/16/24 09:00 Azithromycin 250 Mg Tablet PO 10/19/24 09:01 DAILY [facility] Bethanechol Chloride 5 mg 10/15/24 23:00 10/16/24 06:27 Bethanechol Chloride 5 Mg Tablet PO 5 mg TIDAC BASSEM Administration Dextrose 12.5 gm 10/16/24 01:45 Dextrose 50% 25 Gm/50 Ml Syringe IV PUSH PRN PRN Hypoglycemia Protocol Finasteride 5 mg 10/16/24 09:00 Finasteride 5 Mg Tablet PO QAM BASSEM Glucagon 1 mg 10/16/24 01:45 Glucagon For Inj 1 Mg Vial IM PRN PRN Hypoglycemia Protocol Glucose 15 gm 10/16/24 01:45 Glucose Oral Gel 15 Gm Of Glucse In 37.5 Gm Tube PO PRN PRN Hypoglycemia Protocol Cefepime HCl 2 gm in 50 mls @ 100 mls/hr 10/16/24 21:00 Maxipime 2 Gm/Ns 50 Ml IVPB Q24H BASSEM Dextrose 1,000 mls @ 100 mls/hr 10/16/24 01:45 Dextrose 5% 1,000 Ml IVPB PRN PRN Hypoglycemia Protocol Insulin Aspart 2 - 5 units 10/16/24 08:00 10/16/24 07:50 Insulin Aspart (*Bkc) 100 Units/Ml SUB-Q Not Given TIDWM BASSEM Protocol Metoprolol Tartrate 50 mg 10/15/24 22:35 10/15/24 23:19 Metoprolol Tartrate 50 Mg Tab PO 50 mg Q12HR BASSEM Administration Mirtazapine 15 mg 10/15/24 22:35 10/15/24 23:19 Mirtazapine 15 Mg Tablet PO 15 mg HS BASSEM Administration Multivitamins/Minerals 1 tab 10/16/24 09:00 Multivitamins /C Lutein (Centrum Silver) Tablet *Bkc PO DAILY [facility] Tamsulosin HCl 0.4 mg 10/16/24 09:00 Tamsulosin Hcl 0.4 Mg Capsule PO DAILY [facility] Radiology Results: ITS Impressions Head CT 10/15/24 16:01 IMPRESSION: No acute intracranial process. Chest X-Ray 10/15/24 16:03 IMPRESSION: 1. Lingular opacities concerning for pneumonia. Labs Labs: Laboratory Results - last 24 hr 10/15/24 10/15/24 10/15/24 15:33 19:43 23:13 WBC 17.7 H RBC 3.54 L Hgb 10.8 L Hct 33.8 L MCV 95.5 MCH 30.5 MCHC 32.0 RDW 15.9 H Plt Count 289 MPV 8.8 Immature Gran % (Auto) 0.7 H Neut % (Auto) 82.5 H Lymph % (Auto) 11.0 L [place] % (Auto) 5.1 Eos % (Auto) 0.5 Baso % (Auto) 0.2 Lymph # (Auto) 1.95 [place] # (Auto) 0.9 H Eos # (Auto) 0.1 Baso # (Auto) 0.0 Abs Immat Gran (auto) 0.13 H Absolute Neuts (auto) 14.6 H Absolute Nucleated RBC 0.000 Nucleated RBC % 0.0 PT 14.3 INR 1.1 APTT 35.8 Sodium 139 Potassium 4.4 Chloride 102 Carbon Dioxide 26 Anion Gap 11 BUN 45 H Creatinine 2.70 H Estim Creat Clear Calc Not Reportable Estimated GFR 23 L Glucose 144 H POC Capillary Glucose Hemoglobin A1c 6.7 H Lactic Acid 1.9 Calcium 8.6 Phosphorus Magnesium Total Bilirubin 1.1 AST 36 ALT 32 Alkaline Phosphatase 132 H C-Reactive Protein 4.7 H Total Protein 8.0 Albumin 3.9 Urine Color Urine Appearance Urine pH Ur Specific [place] Urine Protein Urine Glucose (UA) Urine Ketones Ur Blood (Man) Urine Nitrate Urine Bilirubin Urine Urobilinogen Leukocyte Esterase Rfl Urine RBC Urine WBC Ur Squamous Epith Cells Urine Bacteria Urine Casts Nasal MRSA (PCR) Not detected Influenza A (RT-PCR) Negative Influenza B (RT-PCR) Negative RSV (RT-PCR) Negative SARS-CoV-2 RNA (RT-PCR) Negative 10/16/24 10/16/24 10/16/24 00:54 07:08 07:34 WBC 18.0 H RBC 2.96 L Hgb 9.0 L Hct 28.4 L MCV 95.9 MCH 30.4 MCHC 31.7 L RDW 15.8 H Plt Count 228 MPV 8.6 Immature Gran % (Auto) 0.7 H Neut % (Auto) 76.2 H Lymph % (Auto) 16.4 L [place] % (Auto) 5.8 Eos % (Auto) 0.7 Baso % (Auto) 0.2 Lymph # (Auto) 2.96 [place] # (Auto) 1.1 H Eos # (Auto) 0.1 Baso # (Auto) 0.0 Abs Immat Gran (auto) 0.12 H Absolute Neuts (auto) 13.7 H Absolute Nucleated RBC 0.000 Nucleated RBC % 0.0 PT INR APTT Sodium 140 Potassium 4.2 Chloride 110 H Carbon Dioxide 22 Anion Gap 8 BUN 40 H Creatinine 2.30 H Estim Creat Clear Calc 28 Estimated GFR 28 L Glucose 97 POC Capillary Glucose 98 Hemoglobin A1c Lactic Acid Calcium 7.8 L Phosphorus 4.1 Magnesium 1.6 Total Bilirubin 1.2 AST 25 ALT 22 Alkaline Phosphatase 92 C-Reactive Protein Total Protein 6.0 L Albumin 3.0 L Urine Color Yellow Urine Appearance Clear Urine pH 7.5 Ur Specific [place] 1.008 Urine Protein 1+ H Urine Glucose (UA) Negative Urine Ketones Negative Ur Blood (Man) Non-hemolyzed trace Urine Nitrate Negative Urine Bilirubin Negative Urine Urobilinogen 0.2 Leukocyte Esterase Rfl Trace H Urine RBC 6-10 H Urine WBC 0-5 Ur Squamous Epith Cells None seen Urine Bacteria None seen Urine Casts 0-2 Nasal MRSA (PCR) Influenza A (RT-PCR) Influenza B (RT-PCR) RSV (RT-PCR) SARS-CoV-2 RNA (RT-PCR) Quality VTE Prophylaxis VTE prophylaxis: pharmacologic ordered -Patient's previous records reviewed on admission -ER notes reviewed in detail on admission -discussed all findings and current treatment plan with patient/Family/POA -Consultations reviewed for recommendations -Patient's disposition for safe discharge discussed with heel caser Dictation performed by [facility] [employer] direct speech recognition software, therefore grapple yarder operator variants and typographical errors may occur. Hospitalist MIPS Advance Care Plan I have confirmed that the patient's Advanced Care Plan is present, code status is documented, or surrogate decision maker is listed in patient medical record.: Yes Medication Reconciliation I have utilized all available resources to obtain, update and review the patients current medications (includes all prescriptions, OTC, herbals, cannabis, and nutritional supplements).: Yes The patient is not eligible for med reconciliation; the patient is in a emergent medical situation where delaying treatment would jeopardize the patients health.: No
[2024-10-16] MEDS: APIXABAN 5 MG TABLET PO ×2 (10:31→21:42)
[2024-10-16] MEDS: METOPROLOL TARTRATE 50 MG TAB PO ×2 (10:32→21:42)
[2024-10-16] MEDS: ATORVASTATIN 40 MG TABLET PO (10:33)
[2024-10-16] MEDS: MULTIVITAMINS /C LUTEIN (CENTRUM SILVER) TABLET *BKC 1 TAB PO (10:33)
[2024-10-16] MEDS: TAMSULOSIN HCL 0.4 MG CAPSULE PO (10:33)
[2024-10-16] MEDS: AZITHROMYCIN 250 MG TABLET 500 MG PO (10:34)
[2024-10-16] MEDS: FINASTERIDE 5 MG TABLET PO (10:34)
[2024-10-16 11:44] LABS: Glucose Point of Care 159 mg/dl (65-105)
--- NOTE | 2024-10-16 12:20 | REHSTMBS ---
Assessment and note entered by Rolanda Shafer, BUSINESS CONTINUITY MANAGER Modified Barium Swallow Evaluation Feeding Type Recommended Non-Oral Treatment Recommendations Laryngeal Elevation Exerc,Tongue Base Exercise, Vocal Fold Adduction Exer ST Clinical Summary Yvan was alert and cooperative seen for the MBS today. Patient was presented with pudding, cracker coated with pudding, thin liquid via cup and thin liquid via straw, all mixed with barium contrast for viewing. NPO recommended due to poor ability to clear material from large pockets in pharyngeal area. Namely vallecula was 50-100% full during the study and pyriform sinuses 25-80% full. Consistent backflow after swallows were noted to fill the pyriform sinus without reaction. Patient never coughed or felt the need to repeat swallows and was never able to clear pharyngeal area. Extra swallows with chin tuck, head turned to right and head turned to left were not effective to help clear residual in the pharyngeal area. Patient had deep laryngeal penetration and eventual mild aspiration which was silent. NPO is recommended at this time and ST can follow in an effort to provide home exercise program to improve strength of swallow.
[2024-10-16] MEDS: guaiFENesin 200 MG/10 ML UDC PO ×2 (12:55→17:42)
[2024-10-16] MEDS: IPRATROPIUM 0.5 MG/ALBUTEROL SULFATE 2.5 MG AMPUL.NEB 3 ML INHALATION ×2 (14:44→20:05)
[2024-10-16 16:59] LABS: Glucose Point of Care 112 mg/dl (65-105)
[2024-10-16] MEDS: MIRTAZAPINE 15 MG TABLET PO (21:42)
[2024-10-16] MEDS: CEFEPIME 2 GM/NS 50 ML 2 GM/50 ML BAG IVPB (21:42)
--- NOTE | 2024-10-16 23:27 | PC.NURSE ---
Pt. refusing to be turned, repositioned, catheter care and adjustment of linens/pillows. Pt. informed of the reason for doing this and continues to refuse.
[2024-10-16 23:37] LABS: Glucose Point of Care 136 mg/dl (65-105)
[2024-10-17] MEDS: guaiFENesin 200 MG/10 ML UDC PO ×3 (00:09→12:36)
[2024-10-17 04:00] VITALS: BP 147/71; PULSE 71; RESP 16; TEMP 36.4; O2SAT 97
--- NOTE | 2024-10-17 05:16 | PC.NURSE ---
Pt. continues to refuse to be turned/repositioned; continues to refuse care, refuses to be checked for any stool or urine leakage. Refused perdomo care/erasmo care.
[2024-10-17 05:53] LABS: Glucose Point of Care 151 mg/dl (65-105)
[2024-10-17] MEDS: BETHANECHOL CHLORIDE 5 MG TABLET PO ×2 (06:03→12:35)
[2024-10-17 07:02] LABS: Basophils Percent Auto 0.5 % (0.2-1.2); Eosinophils Absolute Auto 0.3 K/mm3 (0-0.3); Eosinophils Percent Auto 3.4 % (0-4.4); Hematocrit 27.5 % (42.0-52.0); Hemoglobin 8.6 g/dL (14.0-18.0); Immature Granulocyte Absolute 0.09 K/mm3 (0.00-0.031); Lymphocytes Absolute Auto 2.34 K/mm3 (0.9-3.2); Lymphocytes Percent Auto 26.4 % (18.3-44.2); Mean Corpuscular HGB Conc 31.3 g/dl (32-36); Mean Corpuscular Hemoglobin 29.9 pg (26-34); Mean Corpuscular Volume 95.5 fl (80-100); Mean Platelet Volume 9.1 fl (7.4-10.4); Monocytes Absolute Auto 0.8 K/mm3 (0.1-0.6); Monocytes Percent Auto 9.1 % (2.6-8.5); Neutrophils Absolute Auto 5.3 K/mm3 (1.3-6.7); Neutrophils Percent Auto 59.6 % (45.5-73.1); Platelet Count Result 224 k/mm3 (150-375); Red Blood Count 2.88 M/mm3 (4.6-6.20); Red Cell Distribution Width 15.8 % (11.5-14.5); White Blood Count 8.9 K/mm3 (4.5-10.0)
[2024-10-17 07:13] LABS: Alanine Aminotransferase 20 U/L (6-50); Albumin Level 2.9 g/dL (3.5-5.1); Alkaline Phosphatase 96 U/L (38-126); Anion Gap 7 mmol/L (4-12); Aspartate Amino Transferase 24 U/L (17-59); Bilirubin,Total 0.8 mg/dL (0.2-1.3); Blood Urea Nitrogen 40 mg/dL (9-20); Calcium 8.2 mg/dL (8.4-10.2); Carbon Dioxide 26 mmol/L (22-30); Chloride 109 mmol/L (98-107); Estimated CRCL calculation 29 ml/min; Estimated Glomerular Filt Rate 30; Glucose 151 mg/dL (65-110); Magnesium 1.9 mg/dL (1.6-2.3); Potassium 3.6 mmol/L (3.4-5.0); Sodium 142 mmol/L (137-145)
[2024-10-17 08:00] VITALS: BP 160/77; PULSE 75; RESP 18; TEMP 36.8; O2SAT 98
--- NOTE | 2024-10-17 08:21 | P.PNIM_ITS ---
Progress Note: A&P Assessment and Plan (1) Pneumonia: Code(s): J18.9 - Pneumonia, unspecified organism Status: Acute Assessment and Plan: Previous history of CVA with dysphagia currently has been eating orally even though g-tube present * possible aspiration PNA * Bronchodilators. * Chest x-ray reviewed showed Lingular opacities concerning for pneumonia. * incentive spirometry while awake. * sputum culture ordered * influenza/COVID/RSV negative * respiratory panel pending * Cefepime/azithro * supplemental oxygen therapy to maintain oxygen 92% * MBS for evaluation of aspiration/NPO * started tube feedings (2) Dysphagia: Qualifiers: Dysphagia type: oropharyngeal phase Qualified Code(s): R13.12 - Dysphagia, oropharyngeal phase Code(s): R13.10 - Dysphagia, unspecified Status: Acute Assessment and Plan: G-Tube present for previous HX CVA and aspiration * NPO * MBS for evaluation/Started tube feedings * monitor electrolytes replenish as needed (3) Diabetes: Qualifiers: Diabetes mellitus type: type 2 Diabetes mellitus meterman insulin use: without meterman use Diabetes mellitus complication status: without complication Qualified Code(s): E11.9 - Type 2 diabetes mellitus without complications Code(s): E11.9 - Type 2 diabetes mellitus without complications Status: Chronic Assessment and Plan: * Accu-Cheks Q6hr on tube feedings * sliding scale insulin * No current home medication * Hemoglobin A1c 6.7 * Watch for hypoglycemia/hypoglycemic protocol ordered (4) Hypertension: Qualifiers: Hypertension type: primary hypertension Qualified Code(s): I10 - Essential (primary) hypertension Code(s): I10 - Essential (primary) hypertension Status: Chronic Assessment and Plan: * Hypertensive on admission * Resume metoprolol * reviewed and stable 10/16/24 * Monitor per unit protocol (5) Acute kidney injury superimposed on CKD: Code(s): N17.9 - Acute kidney failure, unspecified; N18.9 - Chronic kidney disease, unspecified Status: Acute Assessment and Plan: * Cr 2.7 POA * Baseline 1.5-2 CKD * Avoid nephrotoxic drugs. * Monitor antihypertensive drug therapy. * Avoid NSAIDs. * Routine CMP monitoring GFR. * Monitor electrolytes especially potassium. * Antibiotic doses depending on creatinine clearance. * Pharmacy does medications. * Routine follow-up with Nephrology as an outpatient. (6) Neurogenic bladder: Code(s): N31.9 - Neuromuscular dysfunction of bladder, unspecified Status: Acute Assessment and Plan: * Chronic indwelling Bosch catheter * UA negative for UTI * Exchanged in the ED * Resume Flomax and Proscar * Monitor urinary output Plan Code status: Full code per patient DVT prophylaxis: Memo Stress ulcer prophylaxis: DANA PT/OT notes: PT/OT pending Disposition: Patient was admitted for further evaluation and treatment of pneumonia some concern for aspiration will get MBS the, PT/OT pending for re commendations for discharge planning. Subjective Date/time seen: 10/17/24 08:21 Review of Systems Review of Systems: All systems reviewed & are unremarkable except as noted in HPI and below Objective Data Vital Signs Vital Signs: Vital Signs - 24 hr 10/16/24 10:32 10/16/24 11:48 10/16/24 13:25 Temperature 97.6 F Pulse Rate 75 63 Respiratory Rate 18 Blood Pressure 134/63 Pulse Oximetry 98 Oxygen Delivery Room Air 10/16/24 14:45 10/16/24 14:45 10/16/24 14:51 Temperature Pulse Rate 81 84 Respiratory Rate 20 20 Blood Pressure Pulse Oximetry 94 Oxygen Delivery Room Air 10/16/24 16:00 10/16/24 20:08 10/16/24 20:07 Temperature 97.8 F Pulse Rate 61 66 Respiratory Rate 18 19 Blood Pressure 118/62 Pulse Oximetry 99 94 Oxygen Delivery Room Air 10/16/24 20:18 10/16/24 20:00 10/16/24 21:42 Temperature 97.5 F L Pulse Rate 67 62 68 Respiratory Rate 19 16 Blood Pressure 135/71 Pulse Oximetry 100 Oxygen Delivery 10/16/24 20:00 10/16/24 23:41 10/17/24 04:00 Temperature 97.1 F L 97.6 F Pulse Rate 77 71 Respiratory Rate 18 16 Blood Pressure 159/80 H 147/71 H Pulse Oximetry 99 97 Oxygen Delivery Room Air Intake/Output Intake/Output: Intake & Output 10/14/24 10/15/24 10/16/24 10/17/24 23:59 23:59 23:59 23:59 Intake Total 2300 350 890 Output Total 700 901 450 Balance 1600 -551 440 Meds/Results Medications: Active Medications Generic Name Dose Route Start Last Admin Trade Name Freq PRN Reason Stop Dose Admin Acetaminophen 650 mg 10/15/24 23:57 Acetaminophen 325 Mg Tablet PO Q4H PRN Pain or Fever Albuterol/Ipratropium 3 ml 10/16/24 08:00 10/17/24 02:06 Ipratropium 0.5 Mg/Albuterol Sulfate 2.5 Mg Ampul.Neb 3 Ml INHALATION Not Given Q6HRT BASSEM Apixaban 5 mg 10/15/24 22:35 10/16/24 21:42 Apixaban 5 Mg Tablet PO 5 mg Q12HR BASSEM Administration Atorvastatin Calcium 40 mg 10/16/24 09:00 10/16/24 10:33 Atorvastatin 40 Mg Tablet PO 40 mg DAILY BASSEM Administration Azithromycin 500 mg 10/16/24 09:00 10/16/24 10:34 Azithromycin 250 Mg Tablet PO 10/19/24 09:01 500 mg DAILY BASSEM Administration Bethanechol Chloride 5 mg 10/15/24 23:00 10/17/24 06:03 Bethanechol Chloride 5 Mg Tablet PO 5 mg TIDAC BASSEM Administration Dextrose 12.5 gm 10/16/24 01:45 Dextrose 50% 25 Gm/50 Ml Syringe IV PUSH PRN PRN Hypoglycemia Protocol Finasteride 5 mg 10/16/24 09:00 10/16/24 10:34 Finasteride 5 Mg Tablet PO 5 mg QAM BASSEM Administration Glucagon 1 mg 10/16/24 01:45 Glucagon For Inj 1 Mg Vial IM PRN PRN Hypoglycemia Protocol Glucose 15 gm 10/16/24 01:45 Glucose Oral Gel 15 Gm Of Glucse In 37.5 Gm Tube PO PRN PRN Hypoglycemia Protocol Guaifenesin 200 mg 10/16/24 12:00 10/17/24 06:03 Guaifenesin 200 Mg/10 Ml Udc PO 200 mg Q6HR BASSEM Administration Cefepime HCl 2 gm in 50 mls @ 100 mls/hr 10/16/24 21:00 10/16/24 22:12 Maxipime 2 Gm/Ns 50 Ml IVPB Infused Q24H BASSEM Infusion Dextrose 1,000 mls @ 100 mls/hr 10/16/24 01:45 Dextrose 5% 1,000 Ml IVPB PRN PRN Hypoglycemia Protocol Insulin Aspart 2 - 5 units 10/16/24 08:00 10/16/24 16:53 Insulin Aspart (*Bkc) 100 Units/Ml SUB-Q Not Given TIDWM [facility] Protocol Metoprolol Tartrate 50 mg 10/15/24 22:35 10/16/24 21:42 Metoprolol Tartrate 50 Mg Tab PO 50 mg Q12HR BASSEM Administration Mirtazapine 15 mg 10/15/24 22:35 10/16/24 21:42 Mirtazapine 15 Mg Tablet PO 15 mg HS BASSEM Administration Multivitamins/Minerals 1 tab 10/16/24 09:00 10/16/24 10:33 Multivitamins /C Lutein (Centrum Silver) Tablet *Bkc PO 1 tab DAILY BASSEM Administration Tamsulosin HCl 0.4 mg 10/16/24 09:00 10/16/24 10:33 Tamsulosin Hcl 0.4 Mg Capsule PO 0.4 mg DAILY BASSEM Administration Radiology Results: ITS Impressions Head CT 10/15/24 16:01 IMPRESSION: No acute intracranial process. Chest X-Ray 10/15/24 16:03 IMPRESSION: 1. Lingular opacities concerning for pneumonia. Modified Barium Swallow 10/16/24 13:16 IMPRESSION: Pharyngeal dysphagia with laryngeal penetration and silent aspiration. Please correlate with speech pathologist findings and specific feeding recommendations. Labs Labs: Laboratory Results - last 24 hr 10/16/24 10/16/24 10/16/24 11:39 16:52 23:25 WBC RBC Hgb Hct MCV MCH MCHC RDW Plt Count MPV Immature Gran % (Auto) Neut % (Auto) Lymph % (Auto) [place] % (Auto) Eos % (Auto) Baso % (Auto) Lymph # (Auto) [place] # (Auto) Eos # (Auto) Baso # (Auto) Abs Immat Gran (auto) Absolute Neuts (auto) Absolute Nucleated RBC Nucleated RBC % Sodium Potassium Chloride Carbon Dioxide Anion Gap BUN Creatinine Estim Creat Clear Calc Estimated GFR Glucose POC Capillary Glucose 159 H 112 H 136 H Calcium Phosphorus Magnesium Total Bilirubin AST ALT Alkaline Phosphatase Total Protein Albumin 10/17/24 10/17/24 05:47 06:20 WBC 8.9 RBC 2.88 L Hgb 8.6 L Hct 27.5 L MCV 95.5 MCH 29.9 MCHC 31.3 L RDW 15.8 H Plt Count 224 MPV 9.1 Immature Gran % (Auto) 1.0 H Neut % (Auto) 59.6 Lymph % (Auto) 26.4 [place] % (Auto) 9.1 H Eos % (Auto) 3.4 Baso % (Auto) 0.5 Lymph # (Auto) 2.34 [place] # (Auto) 0.8 H Eos # (Auto) 0.3 Baso # (Auto) 0.0 Abs Immat Gran (auto) 0.09 H Absolute Neuts (auto) 5.3 Absolute Nucleated RBC 0.000 Nucleated RBC % 0.0 Sodium 142 Potassium 3.6 Chloride 109 H Carbon Dioxide 26 Anion Gap 7 BUN 40 H Creatinine 2.20 H Estim Creat Clear Calc 29 Estimated GFR 30 L Glucose 151 H POC Capillary Glucose 151 H Calcium 8.2 L Phosphorus 4.0 Magnesium 1.9 Total Bilirubin 0.8 AST 24 ALT 20 Alkaline Phosphatase 96 Total Protein 6.0 L Albumin 2.9 L Quality VTE Prophylaxis VTE prophylaxis: pharmacologic ordered
[2024-10-17] MEDS: IPRATROPIUM 0.5 MG/ALBUTEROL SULFATE 2.5 MG AMPUL.NEB 3 ML INHALATION (08:22)
[2024-10-17 08:25] VITALS: PULSE 68; RESP 20; O2SAT 96
[2024-10-17 08:51] LABS: Glucose Point of Care 162 mg/dl (65-105)
[2024-10-17] MEDS: AZITHROMYCIN 250 MG TABLET 500 MG PO (09:33)
[2024-10-17] MEDS: ATORVASTATIN 40 MG TABLET PO (09:33)
[2024-10-17] MEDS: FINASTERIDE 5 MG TABLET PO (09:33)
[2024-10-17] MEDS: METOPROLOL TARTRATE 50 MG TAB PO (09:33)
[2024-10-17] MEDS: APIXABAN 5 MG TABLET PO (09:33)
[2024-10-17] MEDS: TAMSULOSIN HCL 0.4 MG CAPSULE PO (09:33)
[2024-10-17] MEDS: MULTIVITAMINS /C LUTEIN (CENTRUM SILVER) TABLET *BKC 1 TAB PO (09:33)
[2024-10-17 12:00] VITALS: BP 124/64; PULSE 72; RESP 18; TEMP 36.5; O2SAT 98
--- NOTE | 2024-10-17 14:05 | PCDIET ---
Bolus tube feedings recommendations: Jevity 1.5 300 ml QID with 100 ml water flush with feedings. Tube feedings will be providing 1800 kcal/77 gm protein/912 ml water. Meeting 100% kcal needs at 25 kcal/kg and 100% protein needs at 1.0-1.2 gm/kg. Will monitor tube feedings every Tuesday and Tuesday.
--- NOTE | 2024-10-17 16:20 | P.DS_ITS ---
DS: Admitting Diagnosis Discharge Date 10/17 Admitting Diagnosis ams DS: Discharge Diagnosis Discharge Diagnosis (1) Pneumonia: Code(s): J18.9 - Pneumonia, unspecified organism Status: Acute (2) Dysphagia: Qualifiers: Dysphagia type: oropharyngeal phase Qualified Code(s): R13.12 - Dysphagia, oropharyngeal phase Code(s): R13.10 - Dysphagia, unspecified Status: Acute (3) Diabetes: Qualifiers: Diabetes mellitus type: type 2 Diabetes mellitus ferry terminal agent insulin use: without prison use Diabetes mellitus complication status: without complication Qualified Code(s): E11.9 - Type 2 diabetes mellitus without complications Code(s): E11.9 - Type 2 diabetes mellitus without complications Status: Chronic (4) Hypertension: Qualifiers: Hypertension type: primary hypertension Qualified Code(s): I10 - Essential (primary) hypertension Code(s): I10 - Essential (primary) hypertension Status: Chronic (5) Acute kidney injury superimposed on CKD: Code(s): N17.9 - Acute kidney failure, unspecified; N18.9 - Chronic kidney disease, unspecified Status: Acute (6) Neurogenic bladder: Code(s): N31.9 - Neuromuscular dysfunction of bladder, unspecified Status: Acute Plan (1) Pneumonia: Code(s): J18.9 - Pneumonia, unspecified organism Status: Acute Assessment and Plan: Previous history of CVA with dysphagia currently has been eating orally even though g-tube present * possible aspiration PNA * Bronchodilators. * Chest x-ray reviewed showed Lingular opacities concerning for pneumonia. * incentive spirometry while awake. * sputum culture ordered * influenza/COVID/RSV negative * respiratory panel pending * Cefepime/azithro * supplemental oxygen therapy to maintain oxygen 92% * MBS for evaluation of aspiration/NPO * started tube feedings (2) Dysphagia: Qualifiers: Dysphagia type: oropharyngeal phase Qualified Code(s): R13.12 - Dysphagia, oropharyngeal phase Code(s): R13.10 - Dysphagia, unspecified Status: Acute Assessment and Plan: G-Tube present for previous HX CVA and aspiration * NPO * MBS for evaluation/Started tube feedings * monitor electrolytes replenish as needed (3) Diabetes: Qualifiers: Diabetes mellitus complication status: without complication Diabetes mellitus prison insulin use: without ferry terminal agent use Diabetes mellitus type: type 2 Qualified Code(s): E11.9 - Type 2 diabetes mellitus without complications Code(s): E11.9 - Type 2 diabetes mellitus without complications Status: Chronic Assessment and Plan: * Accu-Cheks Q6hr on tube feedings * sliding scale insulin * No current home medication * Hemoglobin A1c 6.7 * Watch for hypoglycemia/hypoglycemic protocol ordered (4) Hypertension: Qualifiers: Hypertension type: primary hypertension Qualified Code(s): I10 - Essential (primary) hypertension Code(s): I10 - Essential (primary) hypertension Status: Chronic Assessment and Plan: * Hypertensive on admission * Resume metoprolol * reviewed and stable 10/16/24 * Monitor per unit protocol (5) Acute kidney injury superimposed on CKD: Code(s): N17.9 - Acute kidney failure, unspecified; N18.9 - Chronic kidney disease, unspecified Status: Acute Assessment and Plan: * Cr 2.7 POA * Baseline 1.5-2 CKD * Avoid nephrotoxic drugs. * Monitor antihypertensive drug therapy. * Avoid NSAIDs. * Routine CMP monitoring GFR. * Monitor electrolytes especially potassium. * Antibiotic doses depending on creatinine clearance. * Pharmacy does medications. * Routine follow-up with Nephrology as an outpatient. (6) Neurogenic bladder: Code(s): N31.9 - Neuromuscular dysfunction of bladder, unspecified Status: Acute Assessment and Plan: * Chronic indwelling Bosch catheter * UA negative for UTI * Exchanged in the ED * Resume Flomax and Proscar * Monitor urinary output DS: Summary Hospital Course Reason for hospitalization: pneumonia Hospital Course: This is a 69-year-old male patient past medical history of CVA PEG to AFib on Eliquis neurogenic bladder with chronic indwelling Bosch catheter achieved to the emergency department complaining of weakness fever confusion with concern for UTI. Workup in the emergency department revealed chest x-ray findings of left lingular opacity concerning for pneumonia. Was also presumed patient may have a UTI although urinalysis was collected while in the emergency department. Patient had elevated white blood cell count of 17.7 was tachycardic so he met sepsis criteria. IV antibiotics of cefepime and azithromycin were started in the emergency department. Patient is awake alert somewhat confused. He has a G-tube in place but he eats and drinks normally at this point. Patient was also noted to have elevated creatinine 2.7 and LEANDRO. He did receive 1 liter IV fluids in the emergency department. Patient having active chills at time of assessment. Additionally his Bosch catheter was in the process of being changed in order to collect clean urine sample. He also had nasal swabs collected to check for MRSA, COVID or other possible sources. The patient was admitted and started on IV antibiotics for presumed aspiration pneumonia. He has a history of CVA with peg tube placement and recently stopped his tube feedings approximately 1 month ago. Initially the patient was triggering sepsis and he received IV fluid resuscitation. WBC on admission was 18.9 and lactic 1.9. He was started on cefepime and azithromycin. His UA was normal and blood cultures had preliminary no growth. He was seen by speech and had a barium swallow completed which he failed. Speech recommended NPO with total calorie nutrition through PEG tube at this time. The patient is alert and orientated x 4 and able to make his own decisions. He did not want to be NPO and requested to have water to drink. Risks and benefits were reviewed with him surrounding the decision to maintain his NPO status. On day of discharge he was on room air with no complaints of shortness of breath, chest pain, fever or chills. His white blood cell count elevation had resolved and his vitals were stable. Being he already had a PEG tube from his CVA, home health was arranged for tube feeding delivery. He would also benefit from continued speech therapy as an outpatient. He was also found to have an LEANDRO on admission which was felt to be from dehydration. His creatine was 2.7 on admission and 2.2 on day of discharge. He had recently been seen in this hospital for UTI and new LEANDRO (cr 2.7) with nephrology consult. Renal ultrasound at that time showed medical renal disease and the patient was discharged with nephrology follow up for further management of worsening CKD. As his creatinine seems to be at his new baseline and he is making adequate urine per catheter, it was felt he was safe for discharge. Overall he did well and was able to discharge home in stable condition with PCP follow up. Time Spent with Patient Time attestation: Total time spent providing and/or coordinating discharge services: 80 Exam Narrative: * GENERAL: chronically ill Alert and oriented x 3 pleasant male. No acute distress. * LUNGS: Diminished to auscultation bilaterally. No accessory muscle use. productive cough * CARDIOVASCULAR: Regular rate and rhythm. No murmur. No JVD. S1-S2 * ABDOMEN: Soft, non tenderness and non-distended. No palpable masses. G-Tub LUQ * EXTREMITIES: No edema. Non-tender * SKIN: No rashes or lesions. Skin warm, dry. * NEUROLOGIC: No focal neurological deficits. mild right sided mouth droop from previous CVA * PSYCHIATRIC: Appropriate mood and affect. Good judgement and insight. DS: Data Data Completed and Pending Labs on day of discharge: Labs from last 24 hours 10/17/24 10/17/24 10/17/24 08:01 06:20 05:47 WBC 8.9 RBC 2.88 L Hgb 8.6 L Hct 27.5 L MCV 95.5 MCH 29.9 MCHC 31.3 L RDW 15.8 H Plt Count 224 MPV 9.1 Immature Gran % (Auto) 1.0 H Neut % (Auto) 59.6 Lymph % (Auto) 26.4 [place] % (Auto) 9.1 H Eos % (Auto) 3.4 Baso % (Auto) 0.5 Lymph # (Auto) 2.34 [place] # (Auto) 0.8 H Eos # (Auto) 0.3 Baso # (Auto) 0.0 Abs Immat Gran (auto) 0.09 H Absolute Neuts (auto) 5.3 Absolute Nucleated RBC 0.000 Nucleated RBC % 0.0 Sodium 142 Potassium 3.6 Chloride 109 H Carbon Dioxide 26 Anion Gap 7 BUN 40 H Creatinine 2.20 H Estim Creat Clear Calc 29 Estimated GFR 30 L Glucose 151 H POC Capillary Glucose 162 H 151 H Calcium 8.2 L Phosphorus 4.0 Magnesium 1.9 Total Bilirubin 0.8 AST 24 ALT 20 Alkaline Phosphatase 96 Total Protein 6.0 L Albumin 2.9 L 10/16/24 10/16/24 23:25 16:52 WBC RBC Hgb Hct MCV MCH MCHC RDW Plt Count MPV Immature Gran % (Auto) Neut % (Auto) Lymph % (Auto) [place] % (Auto) Eos % (Auto) Baso % (Auto) Lymph # (Auto) [place] # (Auto) Eos # (Auto) Baso # (Auto) Abs Immat Gran (auto) Absolute Neuts (auto) Absolute Nucleated RBC Nucleated RBC % Sodium Potassium Chloride Carbon Dioxide Anion Gap BUN Creatinine Estim Creat Clear Calc Estimated GFR Glucose POC Capillary Glucose 136 H 112 H Calcium Phosphorus Magnesium Total Bilirubin AST ALT Alkaline Phosphatase Total Protein Albumin Preliminary micro results at discharge 10/15/24 20:40 Blood Culture - Preliminary Blood 10/15/24 20:55 Blood Culture - Preliminary Blood Discharge Plan Discharge Attending physician on discharge: Leonard Marcos Discharging Clinician: Maggi Bell Anticipated Discharge Date/Time: 10/17/24 15:31 Patient Disposition: Home Health Service Activity: may shower Diet: NPO and tube feeding Discharge Instructions: Per Care Coordination: [facility] ([phone]) will call to resume services at discharge. RN please fax discharge summary and reports to [phone] Bolus tube feedings recommendations: Jevity 1.5 300 ml QID with 100 ml water flush with feedings. Tube feedings will be providing 1800 kcal/77 gm protein/912 ml water. You did NOT pass your SWALLOW study. You SHOULD NOT eat or drink anything by mouth. You will need to have continued speech therapy evaluation for swallow training. Your aspiration (getting food and drink into your lungs) contributed to this pneumonia most likely. Again, it is recommended that you DO NOT eat or drink anything by mouth and have your nutritional support provided through your g-tube. The above recommendations are from nutrition for your tube feeding. Please continue azithromycin 500 mg daily through 10/19. You should also continue Augmentin twice a day through 10/21. These are antibiotics for your pneumonia. Your urinary catheter was exchanged on 10/15 on admission and is due to be changed in 1 month. Your urinalysis was clear on admission. Please monitor for fever greater than 101.4, worsening shortness of breath, chest pain, body aches, or chills. If you develop these symptoms please return for evaluation. You should follow up with your PCP in 1 week given this hospitalization. Patient Instructions: Antibiotic Form, Apixaban (By mouth), How to Stop Smoking (DC), Aspiration Pneumonia (DC), Community Acquired Pneumonia (DC) Stand Alone Forms: General Discharge Information Follow-up/Referrals: Ronnell Zhang MD [Primary Care Provider] - Discharge Medications: New azithromycin [Zithromax] 250 mg Tablet 500 mg feeding tube DAILY 3 Days Qty: 6 0RF guaifenesin 100 mg/5 mL Liquid 200 mg feeding tube Q6HR 7 Days Qty: 280 0RF ipratropium-albuterol 0.5 mg-3 mg(2.5 mg base)/3 mL Solution For Nebulization 3 ml inhalation Q6HRT Qty: 90 0RF amoxicillin-pot clavulanate 875-125 mg tablet 1 tablet feeding tube Q12H 4 Days Qty: 8 0RF Continued atorvastatin 40 mg tablet 40 mg feeding tube DAILY Qty: 30 0RF acetaminophen [Nortemp] 160 mg/5 mL suspension 650 mg feeding tube Q4H PRN (Reason: Fever or Pain Rated 1-6) Qty: 120 0RF metoprolol tartrate 50 mg tablet 50 mg feeding tube Q12HR Qty: 60 0RF mirtazapine [Remeron] 15 mg tablet 15 mg feeding tube HS Qty: 30 0RF finasteride [Proscar] 5 mg tablet 5 mg feeding tube QAM Qty: 30 0RF Changed bethanechol chloride 5 mg tablet 5 mg feeding tube TID Qty: 180 0RF apixaban 5 mg Tablet 5 mg feeding tube BID Qty: 60 0RF Discontinued tamsulosin 0.4 mg capsule 0.4 mg PO DAILY Adults Multivitamin 18 mg iron-400 mcg-25 mcg Tablet 1 tablet PO DAILY Date of admission: 10/15/24 20:29 Primary Care Provider: Ronnell Zhang Admitting Provider: Lul Dooley Attending physician on admission: Maggi Bell Condition: Improved Quality VTE Prophylaxis VTE prophylaxis: pharmacologic ordered Hospitalist MIPS Heart Failure (Exclusion) Patient has history of Heart Transplant or Left Ventricular Assistive Device?: No IF YES, STOP HERE Heart Failure (Qualifier) Patient has current or prior documentation of LVEF less than or equal to 40%, or mod/servere depressed LVSF?: No IF NO, STOP HERE
[2024-10-17 16:40] LABS: Glucose Point of Care 151 mg/dl (65-105)
[2024-10-18 17:24] LABS: Pneumococcal Antigen Urine NOT DETECTED
[2024-10-19 10:04] LABS: Source SWAB
[2024-10-19 14:14] LABS: Chlamydia pneumoniae by PCR Not Detected
[2024-10-25 22:14] LABS: Legionella pneumophila Ag Ur NOT DETECTED
== END 2024-10-17 18:02 | disposition home health service (06) | DRG 194 ==
LOC: ANHED 21:18 → ANH3MEDSUR 21:41
PROVIDERS: Nurse Practitioner; Nurse Practitioner Family; Physician Assistant; Admitting Provider Internal Medicine; Emergency Provider Emergency Medicine; PCP Emergency Medicine; Visit Provider Nurse Practitioner Acute Care
DX: J18.9 Pneumonia, unspecified organism (principal); I13.0 Hypertensive heart and chronic kidney disease with heart failure and stage 1 through stage 4 chronic kidney disease, or unspecified chronic kidney disease; N17.9 Acute kidney failure, unspecified; I50.42 Chronic combined systolic (congestive) and diastolic (congestive) heart failure; I69.391 Dysphagia following cerebral infarction; Z93.1 Gastrostomy status; E78.5 Hyperlipidemia, unspecified; E86.0 Dehydration; E11.22 Type 2 diabetes mellitus with diabetic chronic kidney disease; F17.210 Nicotine dependence, cigarettes, uncomplicated; I48.0 Paroxysmal atrial fibrillation; N18.9 Chronic kidney disease, unspecified; N31.9 Neuromuscular dysfunction of bladder, unspecified; R13.10 Dysphagia, unspecified; Z79.01 Long term (current) use of anticoagulants; Z20.822 Contact with and (suspected) exposure to COVID-19; Z90.49 Acquired absence of other specified parts of digestive tract
CPT/HCPCS: 36415; 70450; 71046; 80053; 80069; 81001; 82948; 83036; 83605; 83735; 85025; 85610; 85730; 86140; 87040; 87449; 87486; 87581; 87637; 87641; 87899; 92526; 92611; 94640; 97110; 97161; 97165; 99285; A9270; J0456; J0692; J7030

== ENCOUNTER 2025-04-19 19:55 | Inpatient (IN) | payer MEDICARE, OTHER, SELFPAY ==
[2025-04-19] VITALS (8 sets, daily range): BP systolic 121–162; BP diastolic 63–84; PULSE 67–74; RESP 11–19; TEMP 36.6–37.9; O2SAT 98–100
--- NOTE | ~2025-04-19 | XR_ITS ---
XR chest 1V Ordering provider: Viktor Hernandez MD History: 70 years Male with . ams . Comparison: October 15, 2024 FINDINGS: MEDIASTINUM: The cardiac silhouette is not enlarged. LUNGS: No infiltrates, effusions or pneumothorax. OTHER: No free air under the diaphragm. Degenerative changes of the spine. IMPRESSION: No acute cardiopulmonary pathology Reviewed, dictated and finalized at location A.
--- NOTE | ~2025-04-19 | CT_ITS ---
CT brain wo con Ordering provider: Viktor Hernandez MD History: 70 years Male with . ams . Comparison: None. Technique: CT of the head without contrast. Radiation reduction technique utilized. The dose-length p roduct was 6805.33 mGy-cm. FINDINGS: BRAIN PARENCHYMA AND CSF SPACES: Mild leukoaraiosis and diffuse cortical atrophy. Mild atheromatous d isease. Old infarct in the left caudate nucleus and in the right insula. No midline shift, mass effec t or hemorrhage. The brain parenchyma and CSF spaces are otherwise normal. VISUALIZED PARANASAL SINUSES: Well aerated. MASTOIDS: Well aerated. BONES: The bones appear intact. SOFT TISSUES: Visualized nasopharynx is normal. Superficial soft tissues are normal. IMPRESSION: No acute intracranial findings. Reviewed, dictated and finalized at location A.
--- NOTE | ~2025-04-19 | CT_ITS ---
CT abdomen pelvis w con Ordering provider: Viktor Hernandez MD History: 70 years Male with . uti, ams . Comparison: None. Technique: CT abdomen and pelvis with IV and without oral contrast. Automated exposure control and it erative reconstruction technique were employed. The dose-length product was 540.69 mGy-cm. 100 mL Omn ipaque 350 was given IV. Findings: VISUALIZED LOWER CHEST: Dependent atelectatic changes. UPPER ABDOMINAL ORGANS: Liver: Mild fat infiltration. Gallbladder: Normal. Spleen: Normal. Stomach/duodenum: Gastrostomy tube is noted. Duodenal diverticulum. Pancreas: Atrophic. Adrenals: Normal. Kidneys: Tiny cysts in the left kidney lower pole. PELVIC ORGANS: The bladder is underfilled with thickened wall. Enhancing mucosa is seen with possible calcification seen posteriorly suggestive of stones. Bosch's catheter is seen in the bladder. Evaluation for cystitis advised. BOWEL AND MESENTERY: Colon: Mild sigmoid diverticulosis without diverticulitis. Thickened wall in the sigmoid colon is see n which may indicate colitis. Follow-up and further evaluation advised. Appendix is not demonstrated. Small Bowel: Normal. No obstruction. Peritoneum/mesentery: No free air or free fluid. No mesenteric lymphadenopathy. RETROPERITONEUM: Slight dilatation of the distal aorta measuring 2.7 x 2.5 cm. Moderate atheromatous disease of the abdominal aorta. Slight narrowing of the right common femoral artery. No retroperitone al lymphadenopathy. MUSCULOSKELETAL: Superficial soft tissues: The superficial soft tissues are normal. Bones: Age appropriate degenerative changes of the spine. Bilateral sacroiliitis. Left proximal femor al osteochondroma. IMPRESSION: 1. No evidence of appendicitis, diverticulitis or intestinal obstruction. 2. Slightly thickened sigmoid colon which may indicate colitis. Follow-up and if clinically warrante d sigmoidoscopy is advised. 3. Thickened wall of the urinary bladder with small densities seen posteriorly which may represent t iny stones. Evaluation for cystitis advised. 4. Slight dilatation of the distal aorta. Reviewed, dictated and finalized at location A. IMPRESSION: 1. No evidence of appendicitis, diverticulitis or intestinal obstruction. 2. Slightly thickened sigmoid colon which may indicate colitis. Follow-up and if clinically warranted sigmoidoscopy is advised. 3. Thickened wall of the urinary bladder with small densities seen posteriorly which may represent tiny stones. Evaluation for cystitis advised. 4. Slight dilatation of the distal aorta.
--- NOTE | 2025-04-19 20:00 | ECG_ITS ---
Test Date: 2025-04-19 22:50:04 Measurements Intervals [place] Rate: 64 P: 116 IL: 200 QRS: 243 QRSD: 111 T: 25 QT: 449 QTc: 467 Interpretive Statements SINUS RHYTHM WITH OCCASIONAL VENTRICULAR PREMATURE COMPLEXES WITH OCCASIONAL SUPRAVENTRICULAR PREMATURE COMPLEXES ARM LEADS REVERSED [INVERTED P AND QRS IN I] LEFT ANTERIOR FASCICULAR BLOCK ABNORMAL ECG Compared to ECG 05/11/2024 04:24:14 ARM LEAD REVERSAL IS NOW PRESENT Electronically Signed On 04-20-2025 07:41:28 CDT by Yinka Grande M.D.
--- NOTE | 2025-04-19 20:14 | ED.AMS ---
HPI - Altered Mental Status General Chief Complaint: Altered Mental Status Stated Complaint: AMS Time Seen by Provider: 04/19/25 19:59 History of Present Illness HPI narrative: 70-year-old male with a past medical history including prior stroke with residual aphasia and dysphagia requiring G-tube feeding. Patient presents to the emergency department from home as he was done by family members lying in the same spot a left him on Tuesday of this week. Patient normally gets checked on daily but his family members have been preoccupied and not able to visit him. Patient self is at his baseline mentation and nearly aphasic from his prior stroke but is cooperative, smiles and answers questions with mild thing words and head nodding as well as hand motions. He has no focal deficits with examination at this time. He denies any pain is abdomen or chest, no difficulties breathing. He does endorse that he has not been using his tube feeds at home. He does have what appears to be very milky discharge in his urinary catheter back. Wears a chronic indwelling Bosch. No subjective fever chills. Related Data Allergies Allergy/AdvReac Type Severity Reaction Status Date / Time No Known Allergies Allergy Mild Verified 08/24/24 10:55 Review of Systems Review of Systems: As reviewed above in HPI [facility] Past Medical History Medical History Chronic anemia PAF (paroxysmal atrial fibrillation) Combined systolic and diastolic congestive heart failure CKD (chronic kidney disease) Anxiety Arthritis TIA (transient ischemic attack) CVA (cerebral vascular accident) Per MRI on 03/20/2024, old infarcts in the bilateral basal ganglia Indwelling Bosch catheter present Non-insulin dependent diabetes mellitus Normocytic anemia Hyperlipidemia Neurogenic bladder Obstructive uropathy BPH loc w urin obs/LUTS Hypertension Surgical History Surgical History History of appendectomy Family History Family History Father Cerebrovascular accident Social History Social History Social History: Has a daughter Smoking packs per day: 1 Smoking cigarettes per day: 20.0 Years smoked: 20 Smoking pack-years: 20.00 Smoking status: Current every day smoker Tobacco type: cigarettes Second hand tobacco smoke exposure: Yes Additional smoking assessment comments: pt states he started smoking when he got at the age of 39 Alcohol intake: former Drinks per week: 1 Alcohol use details: couple times a week (happy hour) Substance use: current Substance use type: marijuana Other substance usage details: smokes marijuana when friends bring it to him Last use: 1 week ago Do You Feel Safe in your Home?: Yes Lack of Transportation: No Lack of Food: Never True Current Housing: I Have Housing Concerned About Future Housing: No Difficulty Paying Gas/Electric Bills: No Difficulty Paying for Meds: No Currently Unemployed: No Education: High School Diploma/GED Difficulty w/ Childcare or Family Care: No Living arrangements: assisted living Spiritual care concerns: No Exam Narrative: GENERAL: Elderly and overall disheveled and unkempt, but not any acute distress HEAD: [Normocephalic, atraumatic.] EYES: [PERRLA and EOMI.] ENT: Nares clear, no rhinorrhea or epistaxis. Mucous membranes moist. NECK: Supple. CHEST: [Clear to auscultation. No respiratory distress.] HEART: [Regular rate and rhythm]. No murmur heard. [Normal peripheral pulses.] ABDOMEN: [Soft, nondistended], [nontender], [No rigidity or guarding] G-tube in place without any overlying skin changes or cellulitis. Rectal examination with some dried stool but no bleeding or hemorrhoids. EXTREMITIES: Normal range of motion. [No edema.] SKIN: Warm, dry, no rash. Stage I pressure ulcer near the sacrum NEURO: [No focal deficits]. Alert and oriented [x3.] Answering questions appropriately with yes and no and mouthing words. Moving all extremities symmetrically with full strength and sensation. No facial asymmetries or deficits. PSYCH: [Normal mood and affect.] Course Vital Signs Vital signs: Vital Signs Temperature 36.6 C 04/19/25 19:52 Pulse Rate 68 04/19/25 19:52 Respiratory Rate 16 04/19/25 19:52 Blood Pressure 121/81 04/19/25 19:52 Pulse Oximetry 98 04/19/25 19:52 Oxygen Delivery Room Air 04/19/25 19:52 Temperature 37.9 C H 04/19/25 20:11 Pulse Rate 73 04/20/25 00:46 Respiratory Rate 15 04/20/25 00:46 Blood Pressure 137/95 H 04/20/25 00:31 Pulse Oximetry 98 04/20/25 00:46 Oxygen Delivery Room Air 04/19/25 20:10 MDM - Altered Mental Status MDM Narrative Medical decision making narrative: 70-year-old male with history of prior stroke with residual aphasia and dysphagia requiring G-tube. He has a chronic indwelling Bosch. He resides at home and his family members check on him often but for last few days he has been left lung without any people having visiting him. He endorses not moving and not using his tube feeds. He does have a stage I pressure ulcer on his sacrum. He appears very dry and unkempt with some dried stool in his briefs and rectum. He is not any acute distress and has an unremarkable neurological examination aside from his chronic deficits including aphasia and dysphagia. He is febrile here with a temperature 37.9? rectally, no tachycardia, hypoxia or tachypnea. He is denying any abdominal pain or chest pain. He has a chronic indwelling Bosch that appears very contaminated versus infected. This will be exchanged a urinalysis will be sent. Chest x-ray ordered as well as a CT of the head and basic laboratory studies. Suspicion presently is for dehydration versus urinary tract infection versus LEANDRO versus less likely new stroke versus rhabdomyolysis. CPK ordered as well as 2 L of fluid resuscitation. Urinalysis is highly infected and a CT of the abdomen pelvis was ordered for further delineation of any potential ascending urinary infection or other causes. Workup reveals a leukocytosis of 12.9, hemoglobin 11.2 which is around his baseline. Normal platelet count. Electrolytes show chronic kidney disease. Normal electrolytes. Negative CPK. LFTs around baseline. Urinalysis shows red blood cells, white blood cells, bacteria and some contamination. He does have very cloudy appearing urine and given his white count we will treat this as urinary infection. He was started on Rocephin. CT scan shows evidence of cystitis and tiny bladder stones. He also has some slight thickening to his sigmoid colon which could be colitis but he has no abdominal pain or pain on examination so this is less likely. Otherwise unremarkable CT scans. CT head without any acute findings. Chest x-ray without any acute concern. I went and re-evaluated the patient who is awake alert oriented able to answer my questions and expressing desire to go home. We went over patient's imaging, workup and fever here. Patient would like to go home and take his antibiotics through his PEG tube. We tried contacting family members to see if they are able to take him home and administer his medications for him at home and keep on eye on him there and they are not able to take care of him at this time. Given patient's level of debility and acute UTI we will have to admit him for continued care here prior to safe DC home. Discussed this with the hospitalist was agreeable and patient was admitted for observation under [facility] bed. Medical Records Attestation: I reviewed the patient's medical records. Lab Data Attestation: I reviewed the patient's lab results. 04/19/25 20:18 04/19/25 20:18 Labs: Lab Results 04/19/25 04/19/25 Range/Units 20:18 22:14 WBC 12.9 H (4.5-10.0) K/mm3 RBC 3.72 L (4.6-6.20) M/mm3 Hgb 11.2 L (14.0-18.0) g/dL Hct 34.2 L (42.0-52.0) % MCV 91.9 (80-100) fl MCH 30.1 (26-34) pg MCHC 32.7 (32-36) g/dl RDW 13.8 (11.5-14.5) % Plt Count 286 (150-375) k/mm3 MPV 8.6 (7.4-10.4) fl Immature Gran % (Auto) 0.8 H (0-0.5) % Neut % (Auto) 74.8 H (45.5-73.1) % Lymph % (Auto) 14.1 L (18.3-44.2) % [place] % (Auto) 9.9 H (2.6-8.5) % Eos % (Auto) 0.1 (0-4.4) % Baso % (Auto) 0.3 (0.2-1.2) % Lymph # (Auto) 1.82 (0.9-3.2) K/mm3 [place] # (Auto) 1.3 H (0.1-0.6) K/mm3 Eos # (Auto) 0.0 (0-0.3) K/mm3 Baso # (Auto) 0.0 (0.0-0.1) K/mm3 Abs Immat Gran (auto) 0.10 H (0.00-0.031) K/mm3 Absolute Neuts (auto) 9.6 H (1.3-6.7) K/mm3 Absolute Nucleated RBC 0.000 (0.0-0.012) K/mm3 Nucleated RBC % 0.0 (0.0-0.2) % PT 14.5 (11.1-14.7) Seconds INR 1.1 APTT 34.5 (22.3-36.8) Seconds Sodium 142 (137-145) mmol/L Potassium 3.7 (3.4-5.0) mmol/L Chloride 105 (98-107) mmol/L Carbon Dioxide 26 (22-30) mmol/L Anion Gap 11 (4-12) mmol/L BUN 28 H D (9-20) mg/dL Creatinine 1.74 H (0.7-1.3) mg/dL Estim Creat Clear Calc 32 ml/min Estimated GFR 39 L (59 - ) Glucose 131 H (65-110) mg/dL Calcium 9.3 (8.4-10.2) mg/dL Total Bilirubin 0.8 (0.2-1.3) mg/dL AST 43 (17-59) U/L ALT 34 (6-50) U/L Alkaline Phosphatase 156 H (38-126) U/L Total Creatine Kinase 32 L (55-170) U/L Total Protein 8.0 (6.3-8.2) g/dL Albumin 3.7 (3.5-5.1) g/dL Urine Color Dark yellow (Yellow) Urine Appearance Turbid H (Clear) Urine pH 5.5 (5.0-9.0) Ur Specific [place] > 1.045 H (1.001-1.035) Urine Protein 3+ H (Negative) mg/dL Urine Glucose (UA) Negative (Negative) mg/dL Urine Ketones Negative (Negative) mg/dL Ur Blood (Man) 3+ H (Negative) Urine Nitrate Negative (Negative) Urine Bilirubin Negative (Negative) Urine Urobilinogen 1.0 (<2.0) mg/dL Add Ur Microanalysis Reviewed Leukocyte Esterase Rfl 3+ H (Negative) JOSE/UL Urine RBC 51-100 H (0-2) /hpf Urine WBC >100 H (0-3) /hpf Urine WBC Clumps Present H (None) /HPF Ur Squamous Epith Cells Many H (Few) /hpf Urine Bacteria 2+ H /hpf Urine Casts 3-5 Imaging Data Attestation: I personally reviewed and interpreted this imaging study as follows: My impression: Impressions Head CT 04/19/25 21:35 IMPRESSION: No acute intracranial findings. Chest X-Ray 04/19/25 21:52 IMPRESSION: No acute cardiopulmonary pathology Abdomen/Pelvis CT 04/19/25 21:58 IMPRESSION: 1. No evidence of appendicitis, diverticulitis or intestinal obstruction. 2. Slightly thickened sigmoid colon which may indicate colitis. Follow-up and if clinically warranted sigmoidoscopy is advised. 3. Thickened wall of the urinary bladder with small densities seen posteriorly which may represent tiny stones. Evaluation for cystitis advised. 4. Slight dilatation of the distal aorta. Discharge Plan Discharge Clinical Impression: Acute UTI, AMS (altered mental status), Mental status change resolved, Age-related physical debility Patient Disposition: Still a Patient Condition: Stable
[2025-04-19] MEDS: ACETAMINOPHEN 500 MG TABLET 1000 MG PO (20:15)
[2025-04-19] MEDS: LACTATED RINGERS 1,000 ML 999 ML IV CONT ×2 (20:16→20:27)
[2025-04-19 20:26] LABS: Basophils Percent Auto 0.3 % (0.2-1.2); Eosinophils Percent Auto 0.1 % (0-4.4); Hematocrit 34.2 % (42.0-52.0); Hemoglobin 11.2 g/dL (14.0-18.0); Immature Granulocyte Percent A 0.8 % (0-0.5); Lymphocytes Absolute Auto 1.82 K/mm3 (0.9-3.2); Lymphocytes Percent Auto 14.1 % (18.3-44.2); Mean Corpuscular HGB Conc 32.7 g/dl (32-36); Mean Corpuscular Hemoglobin 30.1 pg (26-34); Mean Corpuscular Volume 91.9 fl (80-100); Mean Platelet Volume 8.6 fl (7.4-10.4); Monocytes Absolute Auto 1.3 K/mm3 (0.1-0.6); Monocytes Percent Auto 9.9 % (2.6-8.5); Neutrophils Absolute Auto 9.6 K/mm3 (1.3-6.7); Neutrophils Percent Auto 74.8 % (45.5-73.1); Platelet Count Result 286 k/mm3 (150-375); Red Blood Count 3.72 M/mm3 (4.6-6.20); Red Cell Distribution Width 13.8 % (11.5-14.5); White Blood Count 12.9 K/mm3 (4.5-10.0)
[2025-04-19 20:37] LABS: INR 1.1; Prothrombin Time 14.5 Seconds (11.1-14.7)
--- OUTSIDE RECORDS SUMMARY | 2025-04-19 20:37 | XMS_ITS | Clinical Summary ---
Author Organization [facility] [address] Address [address] [place] [address] Care Team Providers Care Ostomy Care Nurse Name Role Phone Ronnell Zhang MD Primary Care Provider [phone] Allergies No known active allergies Medications metoprolol tartrate (LOPRESSOR) 50 mg immediate release tablet Take 1 tablet (50 mg total) by mouth 2 (two) times a day 60 tablet 11 3 Active tamsulosin (FLOMAX) 0.4 mg extended release capsule Take 1 capsule (0.4 mg total) by mouth daily with dinner 30 capsule 11 3 Active finasteride (PROSCAR) 5 mg tablet Take 1 tablet (5 mg total) by mouth daily Active mirtazapine (REMERON) 15 mg tablet Take 1 tablet (15 mg total) by mouth nightly Active ferrous sulfate 325 mg (65 mg of elemental iron) tabletIndications :Iron Deficiency Anemia Take 1 tablet (325 mg total) by mouth 2 (two) times a day with meals 60 tablet 11 4 05/01/20 25 Active apixaban (ELIQUIS) 5 mg tabletIndications :atrial fibrillation Take 1 tablet (5 mg total) by mouth every 12 (twelve) hours 60 tablet 4 Active atorvastatin (LIPITOR) 40 mg tablet Take 1 tablet (40 mg total) by mouth daily 30 tablet 4 Active Active Problems Problem Noted Date Diagnosed Date Moderate malnutrition 05/01/2024 Syncope and collapse 04/27/2024 Cardiac arrhythmia 04/27/2024 Combined systolic and diastolic congestive heart failure 04/27/2024 Iron deficiency anemia 04/27/2024 LEANDRO (acute kidney injury) 04/27/2024 Pneumonia due to infectious organism 11/10/2023 Atrial fibrillation 11/10/2023 Acute renal failure, unspecified acute renal riya lure type 11/03/2023 Medical History Medical History Date Comments Type 2 diabetes mellitus (HCC) Stroke (HCC) Hypertension Arthritis Atrial fibrillation, unspecified type (HCC) HLD (hyperlipidemia) Depression Anemia Social History Tobacco Use Types Packs/Day Years Used Date Smoking Tobacco: Every Day Cigarettes Smokeless Tobacco: Never Alcohol Use Standard Drinks/Week Comments Not Currently 0 (1 standard drink = 0.6 oz pur e alcohol) [facility] Utilities Answer Date Recorded In the past 12 months has th e electric, gas, oil, or water My[employer] threatened to shut off services in your home? No 04/30/2024 Social Connection and Isolation Panel [NHANES] A nswer Date Recorded In a typical week, how many times do you talk on the phone with family, friends, or neighbors? Twice a week 04/30/2024 How often do you get togethe r with friends or relatives? Once a week 04/30/2024 How often do you attend nondenominational or tenriism serv ices? Never 04/30/2024 Do you belong to any clubs o r organizations such as nondenominational groups, unions, fraternal or athletic groups, or school groups? No 04/30/2024 How often do you attend meet ings of the clubs or organizations you belong to? Never 04/30/2024 Are you , , di vorced, , never , or living with a partner? Patient declined 04/30/2024 Overall Financial Resource Strain (CARDIA) Answe r Date Recorded How hard is it for you to pa y for the very basics like food, housing, medical care, and heating? Not hard at all 04/30/2024 Hunger Vital Sign Answer Date Recorded Within the past 12 months, y ou worried that your food would run out before you got the money to buy more. Never true 04/30/20 24 Within the past 12 months, t he food you bought just didn't last and you didn't have money to get more. Never true 04/30/2024 PRAPARE - Transportation Answer Date Re corded In the past 12 months, has l ack of transportation kept you from medical appointments or from getting medications? No 04/21 In the past 12 months, has l ack of transportation kept you from meetings, work, or from getting things needed for daily living? No 04/30/2024 Housing Stability Vital Sign Answer Bello e Recorded In the last 12 months, was t here a time when you were not able to pay the mortgage or rent on time? No 11/03/2023 In the last 12 months, how many places have you lived? 1 11/03/2023 In the last 12 months, was t here a time when you did not have a steady place to sleep or slept in a mcc (including now)? No 11/03/2023 Housing Stability Vital Sign Answer Bello e Recorded In the last 12 months, was t here a time when you were not able to pay the mortgage or rent on time? No 04/30/2024 In the past 12 months, how m any times have you moved where you were living? 1 04/30/2024 At any time in the past 12 m [facility], were you homeless or living in a mcc (including now)? No 04/30/2024 Personal Safety Answer Date Recorded Have you ever been in or are you currently in a harmful physical or emotional relationship or is someone making you feel afraid or unsafe? Denies 04/27/2024 Education Answer Date Recorded What is the highest level of school you have completed or the highest degree you have received? High school graduate 11/03/2023 Sex and Gender Information Value Date Recorded Sex Assigned at Not on file Legal Sex Male 9:18 AM PATIENT SUPPORT ASSISTANT Gender Identity Not on file Sexual Orientation Not on file Obstetrics History Last Filed Vital Signs Vital Sign Reading Time Taken Comments Blood Pressure 121/56 05/01/2024 3:29 PM CDT Pulse 63 05/01/2024 1:12 PM CDT Temperature 36.7 C (98.1 F) 05/01/2024 3:29 PM CDT Respiratory Rate 18 05/01/2024 3:29 PM CDT Oxygen Saturation 99% 05/01/2024 3:29 PM CDT Inhaled Oxygen Concentration - - Weight 72.3 kg (159 lb 8 oz) 04/27/2024 8:56 PM CDT Height 177.8 cm (5' 10) 04/27/2024 8:56 PM CDT Body Mass Index 22.89 04/27/2024 8:56 PM CDT Plan of Treatment Health Maintenance Due Date Last Done Comments Colon Cancer Screening-Colonoscopy 1955 Depression Screening 1955 Hepatitis C Screening 1954 DTaP/Tdap/Td Vaccine (1 - Tdap) 1965 Hepatitis B Screening 1972 Pneumococcal vaccine 65+ (1 of 2 - PCV) 1973 Zoster Vaccine (1 of 2) 2004 Well Visit 65+ 2019 Covid-19 Vaccine (3 - season) 07/22/202401/2021, 04/02/2021 Fall Risk Assessment 05/01/2025 05/01/2024 Influenza Vaccine (Season Ended) 2025 Prostate Cancer Screening-PSA Discontinued 11/03/2023 Abdominal Aortic Aneurysm (AAA) Screen Completed , 11/03/2023 Procedures Procedure Name Priority Date/Time Associated Diagnosis Comments CT CHEST ABDOMEN PELVIS WO CONTRAST ED 04/27/2024 6:13 PM CDT PSA SCREEN Routine 11/03/2023 6:24 PM PATIENT SUPPORT ASSISTANT from Last 3 Months or Most Recently Relevant to Health Maintenance Results * CT Chest Abdomen Pelvis WO Contrast (04/27/2024 6:13 PM CDT) Anatomical Region Laterality Modality Body N/A Computed Tomogra phy 04/27/2024 6:24 PM CDT Narrative 04/27/2024 6:34 PM CDT EXAM DESCRIPTION: CT CHEST ABDOMEN PELVIS WO CONTRAST REASON FOR STUDY: Weight loss, unintended Unintended wt loss No chest , abd or pelvic pain TECHNIQUE: CT scan of the chest, abdomen, and pelvis performed without intravenous and without oral contrast using helical scanning technique. Reconstructed coronal and sagittal MPR images reviewed. All images stored on PACS. Automated exposure control was used as a dose optimization technique for this examination. COMPARISON: CT abdomen pelvis 11/03/2023. FINDINGS: The sensitivity for detection of visceral lesions is diminished without the use of intravenous contrast. CHEST LUNGS/PLEURA: Small bilateral pleural effusions. There are patchy tree-in-bud opacities in the right apex and posterior right upper lobe as well as in the bilateral lower lobes evidence of an infectious/inflammatory process. There is very mild smooth interlobular septal thickening which may be due to mild interstitial edema. There is lower lobe predominant peribronchial wall thickening. No pneumothorax. MEDIASTINUM/JAVI: Prominent mediastinal lymph nodes are noted, the largest a right paratracheal lymph node 2.2 x 1.7 cm (image 38) and anterior to the right aspect of the main bronchus 1.2 cm (image 42). HEART: Heart size normal. Small pericardial effusion. CORONARY ARTERY CALCIFICATION: Coronary artery calcifications are noted. VASCULATURE CHEST: Mild dilation ascending thoracic aorta 4.1 cm. No axillary lymphadenopathy. AXILLA: No axillary lymphadenopathy. CHEST WALL: No chest wall mass or subcutaneous emphysema. HARDWARE/LINES/TUBES: None. MUSCULOSKELETAL CHEST: Bone windows demonstrate no acute or aggressive osseous abnormality. There is normal left lateral 8th rib fracture and old left posterior 11th rib fracture. No definitive acute fracture. There is the bandlike area of sclerosis in the T2 vertebral body. There is diminished osseous density. Degenerative changes in the lower thoracic spine vacuum disc phenomena. Superior endplate defect T12 likely Schmorl's node. Inferior endplate defect L1 and superior endplate defect L4 may also be due to Schmorl's nodes, where included on the prior abdomen and pelvis CT these are unchanged. ABDOMEN/PELVIS LIVER: Liver size and contour normal. No focal hepatic lesion. GALLBLADDER: Gallbladder is mildly distended. No gallstones or overt inflammatory change. BILE DUCTS: No biliary ductal dilation. SPLEEN: Spleen size normal. No focal lesion. PANCREAS: No pancreatic mass or inflammatory change. ADRENALS: Normal left adrenal gland. There is a low-density right adrenal nodule, this is 1.1 cm 5 Hounsfield units which meets criteria is a benign lipid rich adrenal adenoma. No further workup is needed. KIDNEYS/URINARY TRACT: Right renal vascular calcifications are noted. Smaller calcification pole left kidney. No hydronephrosis or hydroureter. No ureteral calculus. Urinary bladder is decompressed by Bosch catheter. GI: No evidence of bowel obstruction. There is moderate to severe sigmoid colon diverticulosis with wall thickening but no overt inflammatory change. Moderate fecal material in the colon. Moderate colonic diverticulosis elsewhere. The terminal ileum is normal. The appendix is not identified. Stomach and duodenal are normal. Large duodenal diverticula, from the second portion the duodenum 3.8 cm, from the 4th portion duodenal 4 cm. No overt inflammatory change. PERITONEUM: No ascites or free air is seen. No mesenteric mass or lymphadenopathy. RETROPERITONEUM: No retroperitoneal mass or lymphadenopathy. Small nonenlarged lymph nodes. REPRODUCTIVE: The prostate is mildly enlarged and slightly heterogeneous. Small area of high density distal left of midline posterior left inferior prostate 0.6 cm. Correlation with PSA level recommended. VASCULATURE ABDOMEN: Atheromatous calcification of the abdominal aorta, there are some areas of caliber change, maximal dimension the abdominal aorta is 2.8 x 2.7 cm and slightly distal to this 2.5 x 2.6 cm. MUSCULOSKELETAL ABDOMEN PELVIS: Bone windows demonstrate no acute or aggressive osseous abnormality. There is an old healed likely fracture deformity of the left lesser trochanter of the femur. OTHER: No significant abnormality. IMPRESSION: Patchy tree-in-bud opacities in the right upper lobe and bilateral lower lobes evidence of an infectious/inflammatory process. Small bilateral pleural effusions. Mild smooth interlobular septal thickening may be due to mild interstitial edema. Prominent mediastinal lymph nodes which are nonspecific but may be reactive. 3 to six-month follow-up chest CT recommended. Small pericardial effusion. Mild dilation ascending thoracic aorta 4.1 cm. Moderate to severe sigmoid colon diverticulosis with wall thickening but no overt inflammatory change. Routine follow-up colonoscopy recommended. Large duodenal diverticula without inflammation. Mildly enlarged prostate with small area of high density distal left of midline. Correlation with PSA level recommended. Benign right adrenal adenoma. No further workup is needed. Diminished osseous density. THIS IS AN ELECTRONICALLY VERIFIED FINAL REPORT 04/27/2024 6:34 PM - Electronically signed by Rashel Camacho M.D. CH: JACLYN Report ID: [id number] Reading Location: [id number] Procedure Note Rashel Camacho Jr., MD - 04/27/2024 EXAM DESCRIPTION: CT CHEST ABDOMEN PELVIS WO CONTRAST REASON FOR STUDY: Weight loss, unintended Unintended wt loss No chest , abd or pelvic pain TECHNIQUE: CT scan of the chest, abdomen, and pelvis performed without intravenous and without oral contrast using helical scanning technique. Reconstructed coronal and sagittal MPR images reviewed. All images storedon PACS. Automated exposure control was used as a dose optimizationtechnique for this examination. COMPARISON: CT abdomen pelvis 11/03/2023. FINDINGS: The sensitivity for detection of visceral lesions is diminished withoutthe use of intravenous contrast. CHEST LUNGS/PLEURA: Small bilateral pleural effusions. There are patchy tree-in-bud opacities in the right apex and posterior right upper lobe aswell as in the bilateral lower lobes evidence of an infectious/inflammatory process. There is very mild smooth interlobular septal thickening whichmay be due to mild interstitial edema. There is lower lobe predominant peribronchial wall thickening. No pneumothorax. MEDIASTINUM/JAVI: Prominent mediastinal lymph nodes are noted, thelargest a right paratracheal lymph node 2.2 x 1.7 cm (image 38) and anterior to the right aspect of the main bronchus 1.2 cm (image 42). HEART: Heart size normal. Small pericardial effusion. CORONARY ARTERY CALCIFICATION: Coronary artery calcifications are noted. VASCULATURE CHEST: Mild dilation ascending thoracic aorta 4.1 cm. No axillary lymphadenopathy. AXILLA: No axillary lymphadenopathy. CHEST WALL: No chest wall mass or subcutaneous emphysema. HARDWARE/LINES/TUBES: None. MUSCULOSKELETAL CHEST: Bone windows demonstrate no acute or aggressive osseous abnormality. There is normal left lateral 8th rib fracture andold left posterior 11th rib fracture. No definitive acute fracture. There isthe bandlike area of sclerosis in the T2 vertebral body. There is diminished osseous density. Degenerative changes in the lower thoracic spine vacuumdisc phenomena. Superior endplate defect T12 likely Schmorl's node. Inferior endplate defect L1 and superior endplate defect L4 may also be due to Schmorl's nodes, where included on the prior abdomen and pelvis CT theseare unchanged. ABDOMEN/PELVIS LIVER: Liver size and contour normal. No focal hepatic lesion. GALLBLADDER: Gallbladder is mildly distended. No gallstones or overt inflammatory change. BILE DUCTS: No biliary ductal dilation. SPLEEN: Spleen size normal. No focal lesion. PANCREAS: No pancreatic mass or inflammatory change. ADRENALS: Normal left adrenal gland. There is a low-density rightadrenal nodule, this is 1.1 cm 5 Hounsfield units which meets criteria is a benign lipid rich adrenal adenoma. No further workup is needed. KIDNEYS/URINARY TRACT: Right renal vascular calcifications are noted. Smaller calcification pole left kidney. No hydronephrosis or hydroureter.No ureteral calculus. Urinary bladder is decompressed by Bosch catheter. GI: No evidence of bowel obstruction. There is moderate to severesigmoid colon diverticulosis with wall thickening but no overt inflammatorychange. Moderate fecal material in the colon. Moderate colonic diverticulosis elsewhere. The terminal ileum is normal. The appendix is not identified. Stomach and duodenal are normal. Large duodenal diverticula, from thesecond portion the duodenum 3.8 cm, from the 4th portion duodenal 4 cm. No overt inflammatory change. PERITONEUM: No ascites or free air is seen. No mesenteric mass or lymphadenopathy. RETROPERITONEUM: No retroperitoneal mass or lymphadenopathy. Small nonenlarged lymph nodes. REPRODUCTIVE: The prostate is mildly enlarged and slightlyheterogeneous. Small area of high density distal left of midline posterior left inferior prostate 0.6 cm. Correlation with PSA level recommended. VASCULATURE ABDOMEN: Atheromatous calcification of the abdominal aorta, there are some areas of caliber change, maximal dimension the abdominalaorta is 2.8 x 2.7 cm and slightly distal to this 2.5 x 2.6 cm. MUSCULOSKELETAL ABDOMEN PELVIS: Bone windows demonstrate no acute or aggressive osseous abnormality. There is an old healed likely fracture deformity of the left lesser trochanter of the femur. OTHER: No significant abnormality. IMPRESSION: Patchy tree-in-bud opacities in the right upper lobe and bilateral lower lobes evidence of an infectious/inflammatory process. Small bilateral pleural effusions. Mild smooth interlobular septal thickening may be due to mildinterstitial edema. Prominent mediastinal lymph nodes which are nonspecific but may bereactive. 3 to six-month follow-up chest CT recommended. Small pericardial effusion. Mild dilation ascending thoracic aorta 4.1 cm. Moderate to severe sigmoid colon diverticulosis with wall thickening butno overt inflammatory change. Routine follow-up colonoscopy recommended. Large duodenal diverticula without inflammation. Mildly enlarged prostate with small area of high density distal left of midline. Correlation with PSA level recommended. Benign right adrenal adenoma. No further workup is needed. Diminished osseous density. THIS IS AN ELECTRONICALLY VERIFIED FINAL REPORT 04/27/2024 6:34 PM - Electronically signed by Rashel Camacho M.D. CH: JACLYN Report ID: [id number] Reading Location: [id number] Sebastian Ann MD IMG CT PROCEDURES Final Res ult * (ABNORMAL) PSA screen (11/03/2023 6:24 PM PATIENT SUPPORT ASSISTANT) PSA-Total 11.60(H) <=5.40 ng/mL [facility] ([facility]) Comment: Interpretive Data AGE SEX REFERENCE INTERVAL 0 minutes-150 years Female None 0 minutes-49 years Male None 50-59 years Male 0-3.90 60-69 years Male 0-5.40 70-79 years Male 0-6.20 80-150 years Male 0-6.20 The [facility] PSA Total assay procedure was used. Results from different manufacturers or methods may not be comparable. Serial testing should be performed using the same method. Current interpretive data last revised 22. Blood 11/03/2023 6:24 PM PATIENT SUPPORT ASSISTANT 11/03/2023 6:32 PM PATIENT SUPPORT ASSISTANT Jose Rahman MD LAB BLOOD ORDERABLES Final Result [facility] ([facility]) [facility] Department [place] [address] from Last 3 Months or Most Recently Relevant to Health Maintenance Insurance MEDICARE FOR LIFE MEDICARE MEDICARE FOR LIFE Advance Directives For more information, please contact: [phone] * Full Code (Latest Code Status on File) Date Activated Date Inactivated Comments 04/27/2024 9:18 PM 05/01/2024 10:25 PM * Full Code Date Activated Date Inactivated Comments 11/03/2023 3:49 AM 11/10/2023 6:43 PM Care Teams Ostomy Care Nurse Relationship Specialty Start Date End Date Ronnell Zhang MD [address] [place] [address] PCP - General Family Medicine 11/02/23
--- OUTSIDE RECORDS SUMMARY | 2025-04-19 20:37 | XMS_ITS | Clinical Summary ---
Author Organization Unknown Care Team Providers Care Hardboard Grinder Name Role Phone TRACY NICHOLS, JUAN ANTONIO Unavailable Unavailable DAHLIA CRONIN, ANDERSON Unavailable Tammy ISSA GLASS BLOWER, DAIANA Unavailable Unavailjeff BENDER RN, DIEGO Unavailable Unavailable NGA RN, MIRELA Unavailable Unavailable FIDEL GLASS BLOWER, PRINCESS Unavailable Unavailable Payers Payer Name Policy Type Policy Number Effective Date Expira tion Date MEDICARE - [place] - PDGM [id number] Problems Condition Name Condition Details Condition Category Status Onset Date Resolution Date Last Treatment Date Treating Clinician Comments DEPRESSION, UNSPECIFIED Active 11-21 00:00: 00 PAROXYSMAL ATRIAL FIBRILLATION Active 11-21 00:00: 00 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 CHR KDNY Active 11-21 00:00: 00 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 11-21 00:00: 00 TYPE 2 DIABETES MELLITUS W DIABETIC CHRONIC KIDNEY DISEASE Active 11-21 00:00: 00 CHRONIC KIDNEY DISEASE, UNSPECIFIED Active 11-21 00:00: 00 ENCOUNTER FOR ATTENTION TO GASTROSTOMY Active 11-21 00:00: 00 BENIGN PROSTATIC HYPERPLASIA WITH LOWER URINARY TRACT SYMP Active 11-21 00:00: 00 OTHER RETENTION OF URINE Active 11-21 00:00: 00 NEUROMUSCULA R DYSFUNCTION OF BLADDER, UNSPECIFIED Active 11-21 00:00: 00 DYSPHAGIA, UNSPECIFIED Active 11-21 00:00: 00 ANXIETY DISORDER, UNSPECIFIED Active 11-21 00:00: 00 PRIMARY GENERALIZED (OSTEO)ARTHR ITIS Active 11-21 00:00: 00 NICOTINE DEPENDENCE, CIGARETTES, UNCOMPLICATE D Active 11-21 00:00: 00 HYPERLIPIDEM IA, UNSPECIFIED Active 11-21 00:00: 00 PRSNL HX OF TIA (TIA), AND CEREB INFRC W/O RESID DEFICITS Active 11-21 00:00: 00 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 Ordering Clinician Indication Dosage Frequency Signature (SIG) Comments Components Calcium 600 + D(3) 600 mg-10 mcg (400 unit) tablet 01-08 00:00: 00 03-26 23:59 :00 No [id number] 1 tablet DAILY 1 tablet DAILY (route: oral) Med Classific ation: Electroly te Balance-N utritiona l Products ferrous sulfate 324 mg (65 mg iron) tablet,tho yed release 01-08 00:00: 00 03-26 23:59 :00 No [id number] 1 tablet 2 TIMES DAILY 1 tablet 2 TIMES DAILY (route: oral) Med Classific ation: Electroly te Balance-N utritiona l Products metoprolol tartrate 50 mg tablet 01-08 00:00: 00 05-19 00:00 :00 No [id number] 1 tablet 2 TIMES DAILY 1 tablet 2 TIMES DAILY (route: oral) Med Classific ation: Cardiovas cular Therapy Agents potassium chloride ER 20 mEq tablet,exte nded release 01-08 00:00: 00 03-26 23:59 :00 No [id number] 1 tablet DAILY 1 tablet DAILY (route: oral) Med Classific ation: Electroly te Balance-N utritiona l Products tamsulosin 0.4 mg capsule 01-08 00:00: 00 05-19 00:00 :00 No [id number] 1 capsule 2 TIMES DAILY 1 capsule 2 TIMES DAILY (route: oral) Med Classific ation: Genitouri nary Therapy Thera 400 mcg tablet 2-18 00:00: 00 02-12 23:59 :00 No [id number] 1 tablet DAILY 1 tablet DAILY (route: oral) Med Classific ation: Electroly te Balance-N utritiona l Products amoxicillin 875 mg-potassiu m clavulanate 125 mg tablet 3-17 00:00: 00 02-07 23:59 :00 No [id number] 1 tablet 2 TIMES DAILY 1 tablet 2 TIMES DAILY (route: oral) Med Classific ation: Anti-Infe ctive Agents bethanechol chloride 5 mg tablet - 00:00: 00 03-26 23:59 :00 No [id number] 1 tablet 2 TIMES DAILY 1 tablet 2 TIMES DAILY (route: oral) Med Classific ation: Genitouri nary Therapy therapeutic multivitami n tablet 3-16 00:00: 00 05-19 00:00 :00 No [id number] 1 tablet DAILY 1 tablet DAILY (route: oral) Alternate Route: NONE. Med Classific ation: Electroly te Balance-N utritiona l Products sodium chloride 0.9 % irrigation solution 4-16 00:00: 00 05-19 00:00 :00 No [id number] 30-60 mL NEEDED 30-60 mL NEEDED (route: irrigation ) Med Classific ation: Electroly te Balance-N utritiona l Products Aspirin Childrens 81 mg chewable tablet - 00:00: 00 05-19 00:00 :00 No [id number] 1 tablet DAILY 1 tablet DAILY (route: oral) Med Classific ation: Hematolog ical Agents atorvastati n 40 mg tablet - 00:00: 00 05-19 00:00 :00 No [id number] 1 tablet BEDTIME 1 tablet BEDTIME (route: oral) Med Classific ation: Cardiovas cular Therapy Agents bethanechol chloride 5 mg tablet - 00:00: 05-19 00:00 :00 No [id number] 1 tablet 3 TIMES DAILY 1 tablet 3 TIMES DAILY (route: oral) Med Classific ation: Genitouri nary Therapy finasteride 5 mg tablet 03-26 00:00: 05-19 00:00 :00 No [id number] 1 tablet DAILY 1 tablet DAILY (route: oral) Med Classific ation: Genitouri nary Therapy mirtazapine 15 mg tablet 03-26 00:00: 05-19 00:00 :00 No [id number] 1 tablet BEDTIME 1 tablet BEDTIME (route: oral) Med Classific ation: Central Nervous System Agents atorvastati n 40 mg tablet 05-19 00:00: 00 09-12 10:45 :46.7 17 No [id number] 1 tablet DAILY 1 tablet DAILY (route: oral) Alternate Route: G-TUBE. Med Classific ation: Cardiovas cular Therapy Agents Eliquis 5 mg tablet 05-19 00:00: 10-25 23:59 :00 No [id number] 1 tablet 2 TIMES DAILY 1 tablet 2 TIMES DAILY (route: oral) Med Classific ation: Hematolog ical Agents ferrous sulfate 220 mg (44 mg iron)/5 mL oral elixir 05-19 00:00: 09-12 10:45 :52.6 No [id number] 5 mL 2 TIMES DAILY 5 mL 2 TIMES DAILY (route: oral) Alternate Route: G-TUBE. Med Classific ation: Electroly te Balance-N utritiona l Products finasteride 5 mg tablet 05-19 00:00: 00 09-12 10:45 :55.1 27 No [id number] 5 mg EVERY AM 5 mg EVERY AM (route: oral) Alternate Route: G-TUBE. Med Classific ation: Genitouri nary Therapy FREE WATER FLUSH 05-19 00:00: 00 10-25 23:59 :00 No [id number] 200 ml 4 TIMES DAILY 200 ml 4 TIMES DAILY (route: G-TUBE) Alternate Route: G-TUBE. Med Classific ation: NONE furosemide 20 mg tablet 05-19 00:00: 00 07-11 23:59 :00 No [id number] 20 mg 2 TIMES DAILY 20 mg 2 TIMES DAILY (route: oral) Alternate Route: G-TUBE. Med Classific ation: Cardiovas cular Therapy Agents hydrocodone 5 mg-acetamin ophen 325 mg tablet 05-19 00:00: 00 10-24 23:59 :00 No [id number] 1 tablet EVERY 6 HOURS 1 tablet EVERY 6 HOURS (route: oral) Med Classific ation: Analgesic , Anti-infl ammatory or Antipyret ic Jevity 1.5 Adama 0.06 gram-1.5 kcal/mL oral liquid 05-19 00:00: 00 08-08 23:59 :00 No [id number] 300 mL 4 TIMES DAILY 300 mL 4 TIMES DAILY (route: oral) Alternate Route: G-TUBE. Med Classific ation: Electroly te Balance-N utritiona l Products metoprolol tartrate 50 mg tablet 05-19 00:00: 00 09-12 10:46 :01.4 93 No [id number] 1 tablet EVERY 12 HOURS 1 tablet EVERY 12 HOURS (route: oral) Alternate Route: G-TUBE. Med Classific ation: Cardiovas cular Therapy Agents mirtazapine 15 mg tablet 05-19 00:00: 00 09-12 10:46 :07.8 53 No [id number] 1 tablet BEDTIME 1 tablet BEDTIME (route: oral) Alternate Route: G-TUBE. Med Classific ation: Central Nervous System Agents tamsulosin 0.4 mg capsule 05-19 00:00: 00 10-25 23:59 :00 No [id number] 1 capsule EVERY PM 1 capsule EVERY PM (route: oral) Med Classific ation: Genitouri nary Therapy acetaminoph en 160 mg/5 mL (5 mL) oral solution 05-19 00:00: 00 09-12 10:43 :21.9 63 No [id number] 20.3 mL EVERY 4 HOURS 20.3 mL EVERY 4 HOURS (route: oral) Alternate Route: PEG TUBE. Med Classific ation: Analgesic , Anti-infl ammatory or Antipyret ic amoxicillin 875 mg-potassiu m clavulanate 125 mg tablet 05-17 00:00: 00 05-19 23:59 :00 No [id number] 1 tablet 2 TIMES DAILY 1 tablet 2 TIMES DAILY (route: oral) Med Classific ation: Anti-Infe ctive Agents sodium chloride 0.9 % irrigation solution 05-19 00:00: 00 Yes [id number] 30-60 mL NEEDED 30-60 mL NEEDED (route: irrigation ) Med Classific ation: Electroly te Balance-N utritiona l Products Jevity 1.5 Adama 0.06 gram-1.5 kcal/mL oral liquid 18 00:00: 00 10-25 23:59 :00 No [id number] Per instruc tions DAILY Per instructio ns DAILY (route: oral) Alternate Route: G-TUBE. Med Classific ation: Electroly te Balance-N utritiona l Products bethanechol chloride 5 mg tablet 2023-11 0-13 00:00: 00 10-25 23:59 :00 No [id number] 1 tablet 3 TIMES DAILY 1 tablet 3 TIMES DAILY (route: oral) Med Classific ation: Genitouri nary Therapy atorvastati n 40 mg tablet 2023-11 0-22 00:00: 00 10-25 23:59 :00 No [id number] 1 tablet DAILY 1 tablet DAILY (route: oral) Med Classific ation: Cardiovas cular Therapy Agents ferrous sulfate 220 mg (44 mg iron)/5 mL oral elixir 2023-11 0-23 00:00: 00 10-25 23:59 :00 No [id number] 5 mL 2 TIMES DAILY 5 mL 2 TIMES DAILY (route: oral) Med Classific ation: Electroly te Balance-N utritiona l Products finasteride 5 mg tablet 2023-11 0-23 00:00: 00 10-25 23:59 :00 No [id number] 1 tablet DAILY 1 tablet DAILY (route: oral) Med Classific ation: Genitouri nary Therapy metoprolol tartrate 50 mg tablet 2023-11 0 00:00: 00 10-25 23:59 :00 No [id number] 1 tablet EVERY 12 HOURS 1 tablet EVERY 12 HOURS (route: oral) Med Classific ation: Cardiovas cular Therapy Agents mirtazapine 15 mg tablet 2023-11 0 00:00: 00 10-25 23:59 :00 No [id number] 1 tablet BEDTIME 1 tablet BEDTIME (route: oral) Med Classific ation: Central Nervous System Agents atorvastati n 40 mg tablet 2023-11 00:00: 00 Yes [id number] 1 tablet DAILY 1 tablet DAILY (route: oral) Alternate Route: G-TUBE. Med Classific ation: Cardiovas cular Therapy Agents bethanechol chloride 5 mg tablet 2023-11 00:00: 00 Yes [id number] 1 tablet 3 TIMES DAILY 1 tablet 3 TIMES DAILY (route: oral) Alternate Route: G-TUBE. Med Classific ation: Genitouri nary Therapy Children's Tylenol 160 mg/5 mL oral suspension 2023-11 00:00: 00 Yes [id number] 20.3 mL NEEDED 20.3 mL A S NEEDED (route: oral) Alternate Route: G-TUBE. Med Classific ation: Analgesic , Anti-infl ammatory or Antipyret ic Eliquis 5 mg tablet 2023-11 00:00: 00 Yes [id number] 1 tablet 2 TIMES DAILY 1 tablet 2 TIMES DAILY (route: oral) Alternate Route: G-TUBE. Med Classific ation: Hematolog ical Agents finasteride 5 mg tablet 2023-11 00:00: 00 Yes [id number] 1 tablet DAILY 1 tablet DAILY (route: oral) Alternate Route: G-TUBE. Med Classific ation: Genitouri nary Therapy ipratropium 0.5 mg-albutero l 3 mg (2.5 mg base)/3 mL nebulizatio n soln 2023-11 00:00: 00 01-10 23:59 :00 No [id number] 3 mL NEEDED 3 mL NEEDED (route: inhalation ) Med Classific ation: Respirato ry Therapy Agents Jevity 1.5 Adama 0.06 gram-1.5 kcal/mL oral liquid 2023-11 00:00: 00 Yes [id number] 300 mL 4 TIMES DAILY 300 mL 4 TIMES DAILY (route: oral) Alternate Route: G-TUBE. Med Classific ation: Electroly te Balance-N utritiona l Products metoprolol tartrate 50 mg tablet 2023-11 00:00: 00 Yes [id number] 1 tablet 2 TIMES DAILY 1 tablet 2 TIMES DAILY (route: oral) Alternate Route: G-TUBE. Med Classific ation: Cardiovas cular Therapy Agents mirtazapine 15 mg tablet 2023-11 00:00: 00 Yes [id number] 1 tablet BEDTIME 1 tablet BEDTIME (route: oral) Alternate Route: G-TUBE. Med Classific ation: Central Nervous System Agents Macrobid 100 mg capsule 02-12 00:00: 00 02-22 23:59 :00 No [id number] 1 capsule EVERY 12 HOURS 1 capsule EVERY 12 HOURS (route: oral) Med Classific ation: Genitouri nary Therapy Vital Signs Vital Name Observation Time Observation Value Commen ts Temperature 2025-04-17 09:47:00.000 98.1 [degF] Temperature 2025-04-17 01:30:00.000 98 [degF] Temperature 2025-04-10 13:38:00.000 98.6 [degF] Temperature 2025-04-10 10:13:00.000 98 [degF] Temperature 2025-04-03 13:00:00.000 97.7 [degF] Temperature 2025-04-03 11:11:00.000 97.8 [degF] Temperature 2025-04-01 13:43:00.000 97.7 [degF] Temperature 2025-03-27 20:18:00.000 97.8 [degF] Temperature 2025-03-25 13:14:00.000 98.1 [degF] Temperature 2025-03-20 14:01:00.000 97.5 [degF] Temperature 2025-03-19 13:36:00.000 98.2 [degF] Pulse 2025-04-17 09:47:00.000 76 /min Pulse 2025-04-17 01:30:00.000 78 /min Pulse 2025-04-10 13:38:00.000 88 /min Pulse 2025-04-10 10:13:00.000 73 /min Pulse 2025-04-03 13:00:00.000 67 /min Pulse 2025-04-03 11:11:00.000 86 /min Pulse 2025-04-01 13:43:00.000 72 /min Pulse 2025-03-27 20:18:00.000 88 /min Pulse 2025-03-25 13:14:00.000 67 /min Pulse 2025-03-20 14:01:00.000 80 /min Pulse 2025-03-19 13:36:00.000 72 /min O2 Saturation (%) 2025-04-17 01:30:00.000 97 % O2 Saturation (%) 2025-04-10 13:38:00.000 100 % O2 Saturation (%) 2025-04-10 10:14:00.000 98 % O2 Saturation (%) 2025-04-03 13:00:00.000 97 % O2 Saturation (%) 2025-04-03 11:11:00.000 97 % O2 Saturation (%) 2025-03-27 20:18:00.000 96 % O2 Saturation (%) 2025-03-25 13:14:00.000 98 % O2 Saturation (%) 2025-03-20 14:01:00.000 96 % Respirations 2025-04-17 09:47:00.000 18 /min Respirations 2025-04-17 01:30:00.000 18 /min Respirations 2025-04-10 13:45:00.000 18 /min Respirations 2025-04-10 10:13:00.000 16 /min Respirations 2025-04-03 13:00:00.000 16 /min Respirations 2025-04-03 11:11:00.000 16 /min Respirations 2025-04-01 13:43:00.000 18 /min Respirations 2025-03-27 20:18:00.000 18 /min Respirations 2025-03-25 13:14:00.000 16 /min Respirations 2025-03-20 14:01:00.000 18 /min Respirations 2025-03-19 13:36:00.000 18 /min Weight (lbs) 2025-04-10 13:43:00.000 147 [lb_av] Weight (lbs) 2025-04-10 10:15:00.000 146.7 [lb_av] Weight (lbs) 2025-04-03 13:04:00.000 145.9 [lb_av] Weight (lbs) 2025-03-25 13:18:00.000 149 [lb_av] Systolic Blood Pressure 2025-04-17 09:47:00.000 118 mm [Hg] Systolic Blood Pressure 2025-04-17 01:30:00.000 138 mm [Hg] Systolic Blood Pressure 2025-04-10 13:38:00.000 155 mm [Hg] Systolic Blood Pressure 2025-04-10 10:13:00.000 142 mm [Hg] Systolic Blood Pressure 2025-04-03 13:00:00.000 130 mm [Hg] Systolic Blood Pressure 2025-04-03 11:11:00.000 108 mm [Hg] Systolic Blood Pressure 2025-04-01 13:43:00.000 148 mm [Hg] Systolic Blood Pressure 2025-03-27 20:18:00.000 130 mm [Hg] Systolic Blood Pressure 2025-03-25 13:14:00.000 158 mm [Hg] Systolic Blood Pressure 2025-03-20 14:01:00.000 140 mm [Hg] Systolic Blood Pressure 2025-03-19 13:36:00.000 118 mm [Hg] Diastolic Blood Pressure 2025-04-17 09:47:00.000 70 mm [Hg] Diastolic Blood Pressure 2025-04-17 01:30:00.000 78 mm [Hg] Diastolic Blood Pressure 2025-04-10 13:38:00.000 74 mm [Hg] Diastolic Blood Pressure 2025-04-10 10:13:00.000 80 mm [Hg] Diastolic Blood Pressure 2025-04-03 13:00:00.000 60 mm [Hg] Diastolic Blood Pressure 2025-04-03 11:11:00.000 58 mm [Hg] Diastolic Blood Pressure 2025-04-01 13:43:00.000 78 mm [Hg] Diastolic Blood Pressure 2025-03-27 20:18:00.000 70 mm [Hg] Diastolic Blood Pressure 2025-03-25 13:14:00.000 80 mm [Hg] Diastolic Blood Pressure 2025-03-20 14:01:00.000 78 mm [Hg] Diastolic Blood Pressure 2025-03-19 13:36:00.000 68 mm [Hg] Plan of Treatment Planned Activity Planned Date Details Comments Future Scheduled Test SKILLED NU RSE TO EVALUATE PATIENT, IDENTIFY PRIMARY AND CO-MORBID CONDITIONS CODED PER CODING GUIDELINES, AND DEVELOP PATIENT SPECIFIC PLAN OF CARE THAT INCLUDES PATIENT GOAL FOR HOME HEALTH. [code = SKILLED NURSE TO EVALUATE PATIENT, IDENTIFY PRIMARY AND CO-MORBID CONDITIONS CODED PER CODING GUIDELINES, AND DEVELOP PATIENT SPECIFIC PLAN OF CARE THAT INCLUDES PATIENT GOAL FOR HOME HEALTH.] Future Scheduled Test HOME [facility] MAY ACCEPT ORDERS FROM THE FOLLOWING PHYSICIANS: FABRIC AWNING REPAIRER/TREATING PROVIDERS [code = HOME HEALTH AGENCY MAY ACCEPT ORDERS FROM THE FOLLOWING PHYSICIANS: FABRIC AWNING REPAIRER/TREATING PROVIDERS] Future Scheduled Test SKILLED NU RSE TO ASSESS ANXIETY AND PROVIDE ASSISTANCE TO PATIENT FOR UNDERSTANDING AND MANAGEMENT OF FEELINGS. [code = SKILLED NURSE TO ASSESS ANXIETY AND PROVIDE ASSISTANCE TO PATIENT FOR UNDERSTANDING AND MANAGEMENT OF FEELINGS.] Future Scheduled Test SKILLED NU RSE MAY COLLECT URINE SAMPLE FOR URINE REAGENT STRIP TESTING AND/OR URINALYSIS WITH CS 1-3 PRN IF INDICATED FOR SIGNS AND SYMPTOMS OF UTI. IF REAGENT STRIP TEST IS POSITIVE FOR UTI, SKILLED NURSE TO TAKE URINE SAMPLE TO LAB FOR URINE CS AND REPORT RESULTS TO PHYSICIAN. [code = SKILLED NURSE MAY COLLECT URINE SAMPLE FOR URINE REAGENT STRIP TESTING AND/OR URINALYSIS WITH CS 1-3 PRN IF INDICATED FOR SIGNS AND SYMPTOMS OF UTI. IF REAGENT STRIP TEST IS POSITIVE FOR UTI, SKILLED NURSE TO TAKE URINE SAMPLE TO LAB FOR URINE CS AND REPORT RESULTS TO PHYSICIAN.] Future Scheduled Test SKILLED NU RSE FOR TEACHING REGARDING THE ADMINISTRATION OF ENTERAL NUTRITION JEVITY 1.5, 4 TIMES PER DAY, BOLUS OF 300ML WITH 100ML WATER FLUSH INCLUDING TEACHING ON ASPIRATION PRECAUTIONS, AND S/S OF COMPLICATIONS TO REPORT. [code = SKILLED NURSE FOR TEACHING REGARDING THE ADMINISTRATION OF ENTERAL NUTRITION JEVITY 1.5, 4 TIMES PER DAY, BOLUS OF 300ML WITH 100ML WATER FLUSH INCLUDING TEACHING ON ASPIRATION PRECAUTIONS, AND S/S OF COMPLICATIONS TO REPORT.] Future Scheduled Test SKILLED NU RSE TO INSTRUCT PATIENT/CAREGIVER AND PERFORM CARE AND MANAGEMENT OF INDWELLING URINARY CATHETER. COBURN CATHETER INSERTION WITH 16 FR CATHETER WITH 10 ML BALLOON VIA STERILE TECHNIQUE, CHANGE Q MONTH AND PRN FOR LEAKING OR MALFUNCTIONING CATHETER. IRRIGATE URINARY CATHETER WITH 30-60CC NORMAL SALINE PRN BLOCKAGE/LEAKAGE, HEAVY SEDIMENT. 1 - 3 PRN LONG TERM VISITS FOR CATHETER CHANGE(S) AND/OR TROUBLESHOOTING. [code = SKILLED NURSE TO INSTRUCT PATIENT/CAREGIVER AND PERFORM CARE AND MANAGEMENT OF INDWELLING URINARY CATHETER. COBURN CATHETER INSERTION WITH 16 FR CATHETER WITH 10 ML BALLOON VIA STERILE TECHNIQUE, CHANGE Q MONTH AND PRN FOR LEAKING OR MALFUNCTIONING CATHETER. IRRIGATE URINARY CATHETER WITH 30-60CC NORMAL SALINE PRN BLOCKAGE/LEAKAGE, HEAVY SEDIMENT. 1 - 3 PRN LONG TERM VISITS FOR CATHETER CHANGE(S) AND/OR TROUBLESHOOTING.] Future Scheduled Test SPEECH THE RAPIST TO EVALUATE PATIENT FOR DYSPHAGIA. [code = SPEECH THERAPIST TO EVALUATE PATIENT FOR DYSPHAGIA.] Future Scheduled Test SKILLED NU RSE FOR O/A AND SKILLED TEACHING RELATED TO SIGNS AND SYMPTOMS OF INFECTION AND INFECTION CONTROL MEASURES. [code = SKILLED NURSE FOR O/A AND SKILLED TEACHING RELATED TO SIGNS AND SYMPTOMS OF INFECTION AND INFECTION CONTROL MEASURES.] Future Scheduled Test SKILLED NU RSE TO OBTAIN BLOOD SUGAR PRN FOR SIGNS AND SYMPTOMS OF HYPO/HYPERGLYCEMIA. IF OBTAINED BY PATIENT/CAREGIVER PRIOR TO VISIT AND PATIENT IS NOT SYMPTOMATIC, SKILLED NURSE TO RECORD READING FROM PATIENT LOG. [code = SKILLED NURSE TO OBTAIN BLOOD SUGAR PRN FOR SIGNS AND SYMPTOMS OF HYPO/HYPERGLYCEMIA. IF OBTAINED BY PATIENT/CAREGIVER PRIOR TO VISIT AND PATIENT IS NOT SYMPTOMATIC, SKILLED NURSE TO RECORD READING FROM PATIENT LOG.] Future Scheduled Test PHYSICAL T HERAPIST TO EVALUATE PATIENT FOR FUNCTIONAL DEFICITS. [code = PHYSICAL THERAPIST TO EVALUATE PATIENT FOR FUNCTIONAL DEFICITS.] Future Scheduled Test SKILLED NU RSE FOR O/A, TEACHING AND SELF-MANAGEMENT RELATED TO HEART FAILURE. INSTRUCT PATIENT/CAREGIVER ON SIGNS AND SYMPTOMS OF EXACERBATION TO REPORT AND IMPORTANCE OF OBTAINING AND RECORDING DAILY WEIGHT AND/OR MEASUREMENTS. SN OR TRAINED PATIENT/CAREGIVER TO OBTAIN WEIGHT DAILY AND WEIGHT GAIN OF 2 LBS OVERNIGHT OR 5 LBS [code = SKILLED NURSE FOR O/A, TEACHING AND SELF-MANAGEMENT RELATED TO HEART FAILURE. INSTRUCT PATIENT/CAREGIVER ON SIGNS AND SYMPTOMS OF EXACERBATION TO REPORT AND IMPORTANCE OF OBTAINING AND RECORDING DAILY WEIGHT AND/OR MEASUREMENTS. SN OR TRAINED PATIENT/CAREGIVER TO OBTAIN WEIGHT DAILY AND WEIGHT GAIN OF 2 LBS OVERNIGHT OR 5 LBS] Future Scheduled Test SKILLED NU RSE FOR O/A AND TEACHING OF DIABETIC MANAGEMENT INCLUDING BLOOD SUGAR MONITORING/USE OF GLUCOMETER, DIABETIC DIET, LOWER EXTREMITY SKIN INSPECTION, PROPER SKIN/FOOT CARE, AND SIGNS AND SYMPTOMS HYPO/HYPERGLYCEMIA TO REPORT. [code = SKILLED NURSE FOR O/A AND TEACHING OF DIABETIC MANAGEMENT INCLUDING BLOOD SUGAR MONITORING/USE OF GLUCOMETER, DIABETIC DIET, LOWER EXTREMITY SKIN INSPECTION, PROPER SKIN/FOOT CARE, AND SIGNS AND SYMPTOMS HYPO/HYPERGLYCEMIA TO REPORT.] Future Scheduled Test SKILLED NU RSE TO INSTRUCT PATIENT/CAREGIVER ON PREVENTION OF SEPSIS, AND SIGNS AND SYMPTOMS OF SEPSIS TO REPORT. [code = SKILLED NURSE TO INSTRUCT PATIENT/CAREGIVER ON PREVENTION OF SEPSIS, AND SIGNS AND SYMPTOMS OF SEPSIS TO REPORT.] Future Scheduled Test PATIENT CRAVEN S A RISK OF HOSPITALIZATION AND ED USE. SKILLED NURSE TO ESTABLISH SUPPORT MEASURES TO MINIMIZE RISK OF HOSPITALIZATION AND ED USE, AND INSTRUCT PATIENT/CAREGIVER ON METHODS TO REDUCE AVOIDABLE HOSPITALIZATION AND ED USE. [code = PATIENT HAS A RISK OF HOSPITALIZATION AND ED USE. SKILLED NURSE TO ESTABLISH SUPPORT MEASURES TO MINIMIZE RISK OF HOSPITALIZATION AND ED USE, AND INSTRUCT PATIENT/CAREGIVER ON METHODS TO REDUCE AVOIDABLE HOSPITALIZATION AND ED USE.] Future Scheduled Test SKILLED NU RSE TO PROVIDE INSTRUCTION TO PATIENT/CAREGIVER RELATED TO DISCHARGE PLANNING. [code = SKILLED NURSE TO PROVIDE INSTRUCTION TO PATIENT/CAREGIVER RELATED TO DISCHARGE PLANNING.] Future Scheduled Test SKILLED NU RSE TO PERFORM ENVIRONMENTAL SAFETY RISK ASSESSMENT AND FALL RISK ASSESSMENT AND PROVIDE INSTRUCTION TO IMPLEMENT ENVIRONMENTAL SAFETY AND FALL PREVENTION STRATEGIES THROUGHOUT THE CERTIFICATION PERIOD. SKILLED NURSE WILL MAINTAIN SITUATIONAL AWARENESS AND WILL NOTIFY CLINICAL ORACLE ERP ARCHITECT AND PHYSICIAN/PROVIDER WITH ANY CHANGE IN CONDITION. [code = SKILLED NURSE TO PERFORM ENVIRONMENTAL SAFETY RISK ASSESSMENT AND FALL RISK ASSESSMENT AND PROVIDE INSTRUCTION TO IMPLEMENT ENVIRONMENTAL SAFETY AND FALL PREVENTION STRATEGIES THROUGHOUT THE CERTIFICATION PERIOD. SKILLED NURSE WILL MAINTAIN SITUATIONAL AWARENESS AND WILL NOTIFY CLINICAL ORACLE ERP ARCHITECT AND PHYSICIAN/PROVIDER WITH ANY CHANGE IN CONDITION.] Future Scheduled Test SKILLED NU RSE FOR OBSERVATION AND ASSESSMENT OF PATIENTS PAIN LEVEL AND EFFECTIVENESS OF PAIN MANAGEMENT REGIMEN. SKILLED NURSE TO INSTRUCT PATIENT/CAREGIVER REGARDING PHARMACOLOGIC AND NON-PHARMACOLOGIC PAIN CONTROL MEASURES. SKILLED NURSE TO REPORT TO PHYSICIAN IF PAIN IS UNCONTROLLED WITH CURRENT PAIN MANAGEMENT REGIMEN. [code = SKILLED NURSE FOR OBSERVATION AND ASSESSMENT OF PATIENTS PAIN LEVEL AND EFFECTIVENESS OF PAIN MANAGEMENT REGIMEN. SKILLED NURSE TO INSTRUCT PATIENT/CAREGIVER REGARDING PHARMACOLOGIC AND NON-PHARMACOLOGIC PAIN CONTROL MEASURES. SKILLED NURSE TO REPORT TO PHYSICIAN IF PAIN IS UNCONTROLLED WITH CURRENT PAIN MANAGEMENT REGIMEN.] Future Scheduled Test SKILLED NU RSE TO ASSESS PATIENT'S SKIN INTEGRITY AND INSTRUCT PATIENT/CAREGIVER ON MEASURES TO PREVENT PRESSURE ULCERS. [code = SKILLED NURSE TO ASSESS PATIENT'S SKIN INTEGRITY AND INSTRUCT PATIENT/CAREGIVER ON MEASURES TO PREVENT PRESSURE ULCERS.] Future Scheduled Test SKILLED NU RSE TO PROVIDE ASSESSMENT AND TEACHING/REINFORCEMENT OF MANAGEMENT OF DEPRESSION INCLUDING DISEASE PROCESS, MEDICATION MANAGEMENT, COPING SKILLS AND IDENTIFY CHANGES ASSOCIATED WITH DEPRESSIVE DISORDERS FOR EARLY INTERVENTION. [code = SKILLED NURSE TO PROVIDE ASSESSMENT AND TEACHING/REINFORCEMENT OF MANAGEMENT OF DEPRESSION INCLUDING DISEASE PROCESS, MEDICATION MANAGEMENT, COPING SKILLS AND IDENTIFY CHANGES ASSOCIATED WITH DEPRESSIVE DISORDERS FOR EARLY INTERVENTION. ] Future Scheduled Test SKILLED NU RSE TO REVIEW PATIENT MEDICATIONS (PRESCRIPTION/OTC). INSTRUCT PATIENT/CAREGIVER ON ALL MEDICATIONS INCLUDING PURPOSE, WHEN TO TAKE, IMPORTANCE OF MEDICATION ADHERENCE, MONITORING OF EFFECTIVENESS, ADVERSE DRUG REACTIONS, POSSIBLE SIDE EFFECTS, AND WHEN TO NOTIFY AGENCY OR PHYSICIAN/PROVIDER OF ANY CONCERNS. [code = SKILLED NURSE TO REVIEW PATIENT MEDICATIONS (PRESCRIPTION/OTC). INSTRUCT PATIENT/CAREGIVER ON ALL MEDICATIONS INCLUDING PURPOSE, WHEN TO TAKE, IMPORTANCE OF MEDICATION ADHERENCE, MONITORING OF EFFECTIVENESS, ADVERSE DRUG REACTIONS, POSSIBLE SIDE EFFECTS, AND WHEN TO NOTIFY AGENCY OR PHYSICIAN/PROVIDER OF ANY CONCERNS.] Future Scheduled Test SPEECH THE RAPIST TO EVALUATE PATIENT SWALLOWING. SPEECH THERAPY TO INSTRUCT PATIENT/CAREGIVER ON TECHNIQUES TO ADDRESS DYSPHAGIA AND PROVIDE EDUCATIONS AND TREATMENT STRATEGIES DESIGNED TO RESTORE A SAFE FUNCTIONAL SWALLOW. SPEECH PATHOLOGIST TO ASSESS BEST PRACTICE INTERVENTIONS TO ASSIST PATIENTS TO IMPROVE OR STABILIZE MEDICAL STATUS AND PREVENT RE-HOSPITALIZATION. MEASURES INCLUDING REVIEW AND IDENTIFICATION OF CONCERNS FOR THE FOLLOWING AREAS: DEPRESSION, DRUG REGIMEN, DIABETIC FOOT CARE, ENVIRONMENTAL SAFETY ISSUES AND FALLS, PRESSURE ULCERS, PAIN, AND DISEASE MANAGEMENT. [code = SPEECH THERAPIST TO EVALUATE PATIENT SWALLOWING. SPEECH THERAPY TO INSTRUCT PATIENT/CAREGIVER ON TECHNIQUES TO ADDRESS DYSPHAGIA AND PROVIDE EDUCATIONS AND TREATMENT STRATEGIES DESIGNED TO RESTORE A SAFE FUNCTIONAL SWALLOW. SPEECH PATHOLOGIST TO ASSESS BEST PRACTICE INTERVENTIONS TO ASSIST PATIENTS TO IMPROVE OR STABILIZE MEDICAL STATUS AND PREVENT RE-HOSPITALIZATION. MEASURES INCLUDING REVIEW AND IDENTIFICATION OF CONCERNS FOR THE FOLLOWING AREAS: DEPRESSION, DRUG REGIMEN, DIABETIC FOOT CARE, ENVIRONMENTAL SAFETY ISSUES AND FALLS, PRESSURE ULCERS, PAIN, AND DISEASE MANAGEMENT. ] Future Scheduled Test PHYSICAL T HERAPIST TO EVALUATE PATIENT SECONDARY TO FUNCTIONAL DEFICITS/SAFETY CONCERNS. PHYSICAL THERAPY TO ESTABLISH /UPGRADE/DOWNGRADE THERAPEUTIC EXERCISE PROGRAM AND INSTRUCT PATIENT/CAREGIVER ON EXERCISE PRECAUTIONS WITH WRITTEN HOME PROGRAM. MAY INCLUDE PROM, AAROM, AROM, RROM APPROPRIATE TO IMPROVE FUNCTIONAL STRENGTH AND RANGE OF MOTION. PHYSICAL THERAPY TO INSTRUCT PATIENT/CAREGIVER ON GAIT TRAINING TECHNIQUES USING APPROPRIATE ASSISTIVE DEVICE, PROPER BODY MECHANICS TO IMPROVE MOBILITY, AND PREVENT INJURY OF PATIENT AND/OR CAREGIVER. PHYSICAL THERAPY TO INSTRUCT PATIENT/CAREGIVER ON BALANCE AND BALANCE STRATEGIES TO IMPROVE SAFE MOBILITY AND REDUCE RISK FOR FALL AND INJURY PHYSICAL THERAPIST TO ASSESS BEST PRACTICE INTERVENTIONS TO ASSIST PATIENTS TO IMPROVE OR STABILIZE MEDICAL STATUS AND PREVENT RE-HOSPITALIZATION. MEASURES INCLUDING REVIEW AND IDENTIFICATION OF CONCERNS FOR THE FOLLOWING AREAS: DEPRESSION, DRUG REGIMEN, DIABETIC FOOT CARE, ENVIRONMENTAL SAFETY ISSUES AND FALLS, PRESSURE ULCERS, PAIN, AND DISEASE MANAGEMENT. [code = PHYSICAL THERAPIST TO EVALUATE PATIENT SECONDARY TO FUNCTIONAL DEFICITS/SAFETY CONCERNS. PHYSICAL THERAPY TO ESTABLISH /UPGRADE/DOWNGRADE THERAPEUTIC EXERCISE PROGRAM AND INSTRUCT PATIENT/CAREGIVER ON EXERCISE PRECAUTIONS WITH WRITTEN HOME PROGRAM. MAY INCLUDE PROM, AAROM, AROM, RROM APPROPRIATE TO IMPROVE FUNCTIONAL STRENGTH AND RANGE OF MOTION. PHYSICAL THERAPY TO INSTRUCT PATIENT/CAREGIVER ON GAIT TRAINING TECHNIQUES USING APPROPRIATE ASSISTIVE DEVICE, PROPER BODY MECHANICS TO IMPROVE MOBILITY, AND PREVENT INJURY OF PATIENT AND/OR CAREGIVER. PHYSICAL THERAPY TO INSTRUCT PATIENT/CAREGIVER ON BALANCE AND BALANCE STRATEGIES TO IMPROVE SAFE MOBILITY AND REDUCE RISK FOR FALL AND INJURY PHYSICAL THERAPIST TO ASSESS BEST PRACTICE INTERVENTIONS TO ASSIST PATIENTS TO IMPROVE OR STABILIZE MEDICAL STATUS AND PREVENT RE-HOSPITALIZATION. MEASURES INCLUDING REVIEW AND IDENTIFICATION OF CONCERNS FOR THE FOLLOWING AREAS: DEPRESSION, DRUG REGIMEN, DIABETIC FOOT CARE, ENVIRONMENTAL SAFETY ISSUES AND FALLS, PRESSURE ULCERS, PAIN, AND DISEASE MANAGEMENT. ] Goal 2025-01-10 Patient Goal - BE ABLE TO EA T AGAIN Goal 2025-03-12 Patient Goal - BE ABLE TO EA T AGAIN Goal Patient Goal - BE ABLE TO EA T AGAIN Goal 2024-09-02 Patient Goal - BE ABLE TO EA T AGAIN Goal 2024-10-25 Patient Goal - BE ABLE TO EA T AGAIN Goal 2024-11-12 Patient Goal - BE ABLE TO EA T AGAIN Goal 2024-07-17 Patient Goal - BE ABLE TO EA T AGAIN Goal 2024-09-11 Patient Goal - BE ABLE TO EA T AGAIN Goal Provider Goal - A PLAN OF CARE WILL BE ESTABLISHED THAT MEETS PATIENT'S LONG TERM NEEDS AND INCLUDES PATIENT GOAL FOR HOME HEALTH. Goal Provider Goal - ADDITIONAL ORDERS WILL BE RECEIVED FROM ALTERNATE PHYSICIAN IN A TIMELY MANNER THROUGHOUT THE CERTIFICATION PERIOD. Goal Provider Goal - SYMPTOMS OF ANXIETY ARE IDENTIFIED AND INTERVENTIONS INITIATED TO ENABLE PATIENT TO UNDERSTAND AND MANAGE FEELINGS THROUGHOUT EPISODE. Goal Provider Goal - URINE SPECIMEN WILL BE OBTAINED PRN FOR SIGNS AND SYMPTOMS OF UTI AND RESULTS WILL BE REPORTED TO PHYSICIAN THROUGHOUT THE CERTIFICATION PERIOD. Goal Provider Goal - PATIENT/CAREGIVER WILL DEMONSTRATE ABILITY TO ADMINSITER ENTERAL NUTRITION, VERBALIZE METHODS TO PREVENT ASPIRATION AND PERFORM SITE CARE. PATIENT/CAREGIVER WILL REPORT COMPLICATIONS TO SKILLED NURSE /PHYSICIAN. Goal Provider Goal - PATIENT WILL VERBALIZE TOLERANCE OF CATHETER CHANGE AND KNOWLEDGE OF REQUIRED CARE TO MANAGE INDWELLING URINARY CATHETER WITHOUT COMPLICATIONS BY THE END OF THE CERTIFICATION PERIOD. Goal Provider Goal - SPEECH THERAPIST EVALUATION TO BE COMPLETED WITH RECOMMENDATIONS AND/OR WRITTEN PLAN OF TREATMENT ESTABLISHED FOR THE PHYSICIANS SIGNATURE. Goal Provider Goal - PATIENT/CAREGIVER WILL VERBALIZE/DEMONSTRATE UNDERSTANDING OF S/S OF INFECTION AND INFECTION CONTROL MEASURES. SIGNS AND SYMPTOMS OF INFECTION WILL BE IDENTIFIED AND PHYSICIAN NOTIFIED FOR PROMPT INTERVENTION THROUGHOUT THE CERTIFICATION PERIOD. Goal Provider Goal - BLOOD SUGAR READING WILL BE OBTAINED ORDERED THROUGHOUT CERTIFICATION PERIOD. Goal Provider Goal - A PHYSICAL THERAPY EVALUATION TO BE COMPLETED WITH RECOMMENDATIONS AND/OR WRITTEN PLAN OF TREATMENT ESTABLISHED FOR PHYSICIANS SIGNATURE. Goal Provider Goal - PATIENT/CAREGIVER WILL VERBALIZE/DEMONSTRATE KNOWLEDGE AND MANAGEMENT OF HEART FAILURE DISEASE PROCESS BY END OF EPISODE. Goal Provider Goal - PATIENT/CAREGIVER WILL VERBALIZE/DEMONSTRATE KNOWLEDGE OF DIABETIC MANAGEMENT. CHANGES IN DIABETIC STATUS WILL BE IDENTIFIED AND REPORTED TO PHYSICIAN FOR PROMPT INTERVENTION THROUGHOUT THE CERTIFICATION PERIOD. Goal Provider Goal - PATIENT WILL BE FREE FROM INFECTION AND PATIENT/CAREGIVER WILL VERBALIZE UNDERSTANDING OF SIGNS AND SYMPTOMS AND METHODS TO PREVENT SEPSIS BY END OF THE EPISODE. Goal Provider Goal - PATIENT WILL HAVE SUPPORT MEASURES ESTABLISHED TO PREVENT HOSPITALIZATION AND ED USE AND PATIENT/CAREGIVER WILL VERBALIZE/DEMONSTRATE METHODS TO REDUCE AVOIDABLE HOSPITALIZATION AND ED USE BY END OF EPISODE. Goal Provider Goal - PATIENT/CAREGIVER WILL VERBALIZE UNDERSTANDING OF DISCHARGE PLANNING INSTRUCTIONS BY DATE OF DISCHARGE. Goal Provider Goal - PATIENT/CAREGIVER WILL VERBALIZE/DEMONSTRATE EFFECTIVE ENVIRONMENTAL SAFETY AND FALL PREVENTION STRATEGIES, WILL REMAIN SAFE IN THE COMMUNITY, AND WILL BE FREE OF DANGER TO SELF AND OTHERS THROUGHOUT THE CERTIFICATION PERIOD. Goal Provider Goal - PATIENT/CAREGIVER WILL DEMONSTRATE UNDERSTANDING OF PHARMACOLOGIC AND NONPHARMACOLOGIC PAIN CONTROL MEASURES AND PATIENT WILL HAVE IMPROVEMENT IN PAIN INTERFERING WITH ACTIVITY EVIDENCED BY PAIN CONTROLLED AT LEVEL OF 5 OR LESS BY END OF CERTIFICATION PERIOD. Goal Provider Goal - PATIENT/CAREGIVER WILL VERBALIZE UNDERSTANDING OF PRESSURE ULCER PREVENTION BY END OF THE EPISODE. Goal Provider Goal - PATIENT/CAREGIVER WILL VERBALIZE/DEMONSTRATE UNDERSTANDING OF THE MANAGEMENT OF DEPRESSION THROUGHOUT THE CERTIFICATION PERIOD AND SYMPTOMS ARE IDENTIFIED AND MANAGED TO MAINTAIN PATIENT SAFETY IN THE HOME. Goal Provider Goal - PATIENT/CAREGIVER WILL VERBALIZE UNDERSTANDING OF EDUCATION PROVIDED ON MEDICATIONS BY THE END OF THE CERTIFICATION PERIOD. Goal Provider Goal - SPEECH THERAPY EVALUATION TO BE COMPLETED WITH RECOMMENDATIONS AND/OR WRITTEN TREATMENT PLAN OF CARE ESTABLISHED FOR THE PHYSICIANS SIGNATURE. PATIENT/CAREGIVER WILL DEMONSTRATE IMPROVED SWALLOW TECHNIQUE WITH PLEASURE FEEDINGS OF SOFT SOLIDS AND THIN LIQUIDS WITH NO OVERT SIGNS SYMPTOMS ASPIRATION 90%. 04/19/25 PATIENT/CAREGIVER VERBALIZES UNDERSTANDING OF THE INITIAL BEST PRACTICE RECOMMENDATIONS. PHYSICIAN TO BE NOTIFIED APPROPRIATE FOR ANY CHANGES OR COMPLICATIONS THROUGHOUT THE CERTIFICATION PERIOD. Goal Provider Goal - PHYSICAL THERAPY EVALUATION TO BE COMPLETED WITH RECOMMENDATIONS AND/OR WRITTEN TREATMENT PLAN OF CARE ESTABLISHED FOR THE PHYSICIANS SIGNATURE PATIENT/CAREGIVER WILL PERFORM THERAPEUTIC EXERCISE/S AND DEMONSTRATE PARTICIPATION IN A HOME PROGRAM. PATIENT/CAREGIVER WILL DEMONSTRATE IMPROVED GAIT TECHNIQUES TO MINIMIZE RISK OF INJURY. PATIENT/CAREGIVER WILL DEMONSTRATE IMPROVED BALANCE AND REDUCE THE RISK OF FALLS AND INJURY. PATIENT/CAREGIVER VERBALIZES UNDERSTANDING OF THE INITIAL BEST PRACTICE RECOMMENDATIONS. PHYSICIAN TO BE NOTIFIED APPROPRIATE FOR ANY CHANGES OR COMPLICATIONS THROUGHOUT THE CERTIFICATION PERIOD. Progress Notes Progress Notes <paragraph>[Visit Date: 2024 by MAMI NEELY LPN]:</paragraph><paragraph>NURSE HERE FOR ROUTINE VISIT UPON NURSE ARRIVAL PATIENT IS LYING IN BED. PATIENT REMAINS HOMEBOUND AT THIS TIME. PATIENT IS ALERT AND ORIENTED X4. PATIENT'S VITAL SIGNS WITHIN NORMAL LIMITS. PATIENT'S HEART RHYTHM IS REGULAR. LUNG SOUNDS ARE CLEAR IN ALL LOBES. PATIENT'S G TUBE REMAINS IN PLACE. PATIENT STATES HE HAS GIVEN HIMSELF 1 FEEDING TODAY. PATIENT STATES HE PLANS TO DO ANOTHER 1 THIS AFTERNOON FOR DINNER. PATIENT SEEMS TO BE IN [employer] TODAY SAYS HE IS FEELING WELL. PATIENT'S CATHETER REMAINS IN PLACE NO SIGNS OR SYMPTOMS OF UTI. URINE IS CLEAR AND DRAINING FREELY INTO COBURN BAG. PATIENT WAS ENCOURAGED TO DRINK PLENTY OF WATER AND PERFORM PROPER PERICARE TO PREVENT UTIS. PATIENT VOICED UNDERSTANDING. PATIENT'S CATHETER IS DUE TO BE CHANGED NEXT WEEK. PATIENT'S CALENDAR WAS REVIEWED REGARDING NEXT NURSING VISIT. PATIENT HAS NO FURTHER QUESTIONS AT THIS TIME. PATIENT ADVISED TO CALL [facility] FIRST WITH ANY QUESTIONS CONCERNS OR CHANGES IN HEALTH STATUS.</paragraph> Encounters Start Date/Time End Date/Time Encounter Type Admission Type Attending [facility] Care Department Encounter ID Discharge Date Discharge Status Discharge Condition Discharge Reason Percent Goals Met 2025-03-15 00:00:00 2025-05-13 00:00:00 Outpatient RECERTIFIC MIRELA YUSUF [facility] [id number]
--- OUTSIDE RECORDS SUMMARY | 2025-04-19 20:37 | XMS_ITS | Continuity of Care Document ---
Author Organization [facility] Address [address] [place] [address] [place] [address] Phone Care Team Providers Care Plate Gauger Name Role Phone Ronnell Zhang MD Unavailable Unavailable Allergies, Adverse Reactions, Alerts Substance Reaction Status Criticality No Known Allergies Active No Inform ation Medications Medication Instructions Dosage Effective Dates (start - stop) Status Comments Macrobid 100 mg capsule take 1 capsule by oral route every 12 hours with food 100 MG - Active Flomax 0.4 mg capsule take 1 capsule by oral route every day 1/2 hour following the same meal each day 0.4 MG - Active Remeron 15 mg tablet take 1 tablet by oral route every day before bedtime 15 MG - Active avoid driving or operate machines metoprolol tartrate 50 mg tablet take 1 tablet by oral route 2 times every day with meals 50 MG - Active Lipitor 40 mg tablet take 1 tablet by oral route every day 40 MG - Active Eliquis 5 mg tablet take 1 tablet by oral route 2 times every day 5 MG - Active Proscar 5 mg tablet take 1 tablet by oral route every day 5 MG - Active Procedures Procedure Date OFFICE/OUTPATIENT VISIT, EST OFFICE/OUTPATIENT VISIT, EST OFFICE/OUTPATIENT VISIT, EST Medicare Addendum OFFICE/OUTPATIENT VISIT, EST Medicare Addendum OFFICE/OUTPATIENT VISIT, EST Medicare Addendum OFFICE/OUTPATIENT VISIT, EST Medicare Addendum OFFICE/OUTPATIENT VISIT, EST PPPS, subseq visit OFFICE/OUTPATIENT VISIT, EST OFFICE/OUTPATIENT VISIT, EST PPPS, initial visit OFFICE/OUTPATIENT VISIT, EST OFFICE/OUTPATIENT VISIT, EST OFFICE/OUTPATIENT VISIT, EST OFFICE/OUTPATIENT VISIT, EST Initial preventive exam OFFICE/OUTPATIENT VISIT, EST PREV VISIT, EST, AGE 40-64 OFFICE/OUTPATIENT VISIT, EST OFFICE/OUTPATIENT VISIT, EST PREV VISIT, EST, AGE 40-64 OFFICE/OUTPATIENT VISIT, EST OFFICE/OUTPATIENT VISIT, EST OFFICE/OUTPATIENT VISIT, EST PREV VISIT, EST, AGE 40-64 OFFICE/OUTPATIENT VISIT, EST Advance Directives Directive Yes / No Effective Date File Name No Information Encounters Encounter Description Practice Location Reason(s) For Visit Diagnoses Date Provider Providers Copied on Encounter [facility], [address] [place], [address], tel:[phone] [facility] No Information Vicente Reynaga. [address] [facility] [place] [address] , [place]. tel:[phone] [facility], [address] [place] [place] [address], [place] tel:[phone] [facility] No Information Vicente Reynaga. [address] [place], [address] , [place]. tel:[phone] OFFICE/OUTPA TIENT VISIT, EST [facility], [address] [place], [address], tel:[phone] [facility] UTI1 (chief complaint) Acute cystitis with hematuria 5 Vicente Reynaga. [address], [place], [place], [address] , [place]. tel:[phone] OFFICE/OUTPA TIENT VISIT, [facility], [address], [place], [place], [address], [place] tel:[phone] [facility] pneumonia1 (chief complaint) renal (chief complaint) dysphagia1 (chief complaint) anemia1 (chief complaint) PneumoniaDysphagiaA cute renal failureAnemia 4 Vicente Reynaga. [address], [place], [place], [address] , [place]. tel:[phone] OFFICE/OUTPA TIENT VISIT, [facility], [address] [place], [address], [place] tel:[phone] [facility] HTN (chief complaint) HLP (chief complaint) anxiety1 (chief complaint) BPH1 (chief complaint) UTI1 (chief complaint) Acute renal failureHypothyroidi smParoxysmal atrial fibrillationBPH w/ lower urinary tract symptomGeneralized anxiety disorderMixed hyperlipidemiaAnemi a 4 Vicente Reynaga. [address], [place], [place], [address] , [place]. tel:[phone] OFFICE/OUTPA TIENT VISIT, [facility], [address] [place] [place] [address], [place] tel:[phone] [facility] CVA1 (chief complaint) anxiety1 (chief complaint) BPH1 (chief complaint) AnemiaGeneralized anxiety disorderBPH w/ lower urinary tract symptomAtrial fibrillationPneumon iaAcute renal failureStroke 4 Vicente Reynaga. [address], [place], [place], [address] , [place]. tel:[phone] OFFICE/OUTPA TIENT VISIT, [facility], [address], [place], [place], [address], [place] tel:[phone] [facility] pneumonia1 (chief complaint) anxiety1 (chief complaint) afib1 (chief complaint) CVA1 (chief complaint) Acute cystitis with hematuriaPneumoniaA nemiaAtrial fibrillationHypothy roidismBPH w/ lower urinary tract symptomAbnormalitie s of gaitMixed hyperlipidemiaGener alized anxiety disorderStroke 4 Vicente Reynaga. [address], [place], [place], [address] , [place]. tel:[phone] OFFICE/OUTPA TIENT VISIT, [facility], [address], [place], [place], [address], [place] tel:[phone] [facility] hypothyroi dism1 (chief complaint) pneumonia1 (chief complaint) DM (chief complaint) anemia1 (chief complaint) anxiety1 (chief complaint) PneumoniaAcute cystitis without hematuriaDisorder of iron metabolism, unspecifiedType 2 diabetes mellitus with diabetic nephropathyAbnormal ity of albuminAnemiaHypoth yroidismHypocalcemi aBPH w/ lower urinary tract symptomAtrial fibrillationDepress ionAcute renal failure 4 Vicente Reynaga. [address], [place], [place], [address] , [place]. tel:[phone] Referring Provider: Ronnell Zhang [address] [facility] [place], [place], [address]. tel:[phone] OFFICE/OUTPA TIENT VISIT, [facility], [address], [place], [place], [address], [place] tel:[phone] [facility] TB (chief complaint) Abnormal result of Mantoux testAbnormal weight loss 4 Vicente Reynaga. [address], [place], [place], [address] , [place]. tel:[phone] Referring Provider: Ronnell Zhang, [address] [facility] [address], [place], [place], [address]. tel:[phone] OFFICE/OUTPA TIENT VISIT, [facility], [address], [place], [place], [address], [place] tel:[phone] [facility] physical (chief complaint) WeaknessEncounter for general adult medical exam w abnormal findingsAbnormal weight lossAcute renal failureAnemiaType 2 diabetes mellitus without complicationsBPH w/ lower urinary tract symptomDysphagiaDep ressionAtrial fibrillation 4 Vicente Reynaga. [address], [place], [place], [address] , [place]. tel:[phone] Referring Provider: Thao Collado [address], [place], [place], [address]. tel:[phone] OFFICE/OUTPA TIENT VISIT, [facility], [address], [place], [place], [address], [place] tel:[phone] [facility] HTN (chief complaint) DM (chief complaint) PSA (chief complaint) anemia1 (chief complaint) HLP (chief complaint) weight loss1 (chief complaint) Abnormal weight lossEssential (primary) hypertensionStrokeT ype 2 diabetes mellitus without complicationsElevat ed prostate specific antigen [PSA]Mixed hyperlipidemiaAnemi aThrombocytosisVita min D deficiency, unspecifiedDepressi on 2 Vicente Reynaga. [address], [place], [place], [address] , [place]. tel:[phone] Referring Provider: Thao Collado [address], [place], [place], [address]. tel:[phone] OFFICE/OUTPA TIENT VISIT, [facility], [address], [place], [place], [address], [place] tel:[phone] [facility] physical (chief complaint) Encounter for general adult medical exam w abnormal findingsSyncope and collapseStrokeEssen tial (primary) hypertensionAbnorma l weight lossType 2 diabetes mellitus without complicationsAlcoho l dependence, uncomplicated 2 Vicente Reynaga. [address], [place], [place], [address] , [place]. tel:[phone] Referring Provider: Thao Collado [address], [place], [place], [address]. tel:[phone] OFFICE/OUTPA TIENT VISIT, [facility], [address], [place], [place], [address], [place] tel:[phone] [facility] HTN (chief complaint) DM (chief complaint) depression 1 (chief complaint) weight loss1 (chief complaint) Abnormal weight lossEssential (primary) hypertensionType 2 diabetes mellitus without complicationsFolate deficiencyDepressio n Oct- 1 Vicente Schofield [address], [place], [place], [address] , [place]. tel:[phone] Referring Provider: Thao Collado [address], [place], [place], [address]. tel:[phone] OFFICE/OUTPA TIENT VISIT, [facility], [address], [place], [place], [address], [place] tel:[phone] [facility] DM (chief complaint) KCL (chief complaint) folate (chief complaint) HTN (chief complaint) Type 2 diabetes mellitus without complicationsEssent ial (primary) hypertensionHypokal emiaFolate deficiencyAbnormal weight loss Sep-2 0 Vicente Reynaga. [address], [place], [place], [address] , [place]. tel:[phone] Referring Provider: Thao Collado [address], [place], [place], [address]. tel:[phone] OFFICE/OUTPA TIENT VISIT, [facility], [address], [place], [place], [address], [place] tel:[phone] [facility] HTN (chief complaint) DM (chief complaint) Type 2 diabetes mellitus without complicationsEssent ial (primary) hypertension Jan-0 0 Vicente Reynaga. [address], [place], [place], [address] , [place]. tel:[phone] Referring Provider: Thao Collado [address], [place], [place], [address]. tel:[phone] OFFICE/OUTPA TIENT VISIT, [facility], [address], [place], [place], [address], [place] tel:[phone] [facility] physical (chief complaint) Encounter for general adult medical exam w abnormal findingsEssential (primary) hypertensionType 2 diabetes mellitus without complicationsAbnorm al weight loss 0 3- 9 Vicente Reynaga. [address], [place], [place], [address] , [place]. [phone] Referring Provider: Thao Collado [address], [place], [place], [address]. [phone] PREV VISIT, EST, AGE 40-64 [facility], [address], [place], [place], [address], [place] tel:[phone] [facility] PHysical (chief complaint) Encntr for general adult medical exam w/o abnormal findings March-0 - 8 Vicente Reynaga. [address], [place], [place], [address] , [place]. [phone] Referring Provider: Thao Collado [address], [place], [place], [address]. tel:[phone] OFFICE/OUTPA TIENT VISIT, EST [facility], [address], [place], [place], [address], [place] tel:[phone] [facility] DM (chief complaint) HTN1 (chief complaint) HLP (chief complaint) Type 2 diabetes mellitus without complicationsEssent ial (primary) hypertensionMixed hyperlipidemia 6 Vicente Schofield [address], [place], [place], [address] , [place]. [phone] Referring Provider: Thao Collado [address], [place], [place], [address]. tel:[phone] OFFICE/OUTPA TIENT VISIT, EST [facility], [address], [place], [place], [address], [place] tel:[phone] [facility] DM (chief complaint) proteinuri a (chief complaint) HLP (chief complaint) HTN (chief complaint) Dietary surveillance and counselingUnspecifi ed essential hypertensionBrittle diabetesOther and unspecified hyperlipidemiaProte inuria 5 Vicente Schofield [address], [place], [place], [address] , [place]. [phone] Referring Provider: Thao Collado [address], [place], [place], [address]. [phone] PREV VISIT, EST, AGE 40-64 [facility], [address], [place], [place], [address], [place] tel:[phone] [facility] Physical (chief complaint) Routine Medical ExamDiabetes Mellitus Type 2, UncomplicatedHypert ension, UnspecifiedDietary surveillance and counselingRoutine Medical Exam 5 Vicente Schofield [address], [place], [place], [address] , [place]. [phone] Referring Provider: Thao Collado [address], [place], [place], [address]. tel:[phone] OFFICE/OUTPA TIENT VISIT, EST [facility], [address], [place], [place], [address], [place] tel:[phone] [facility] fatigue (chief complaint) HTN (chief complaint) DM (chief complaint) elbow pain (chief complaint) Dietary surveillance and counselingFatigue / MalaiseHypertension , UnspecifiedDiabetes Mellitus Type 2, UncomplicatedPain in joint involving upper arm 3 Vicente Schofield [address], [place], [place], [address] , [place]. [phone] Referring Provider: Thao Collado [address], [place], [place], [address]. [phone] OFFICE/OUTPA TIENT VISIT, EST [facility], [address], [place], [place], [address], [place] tel:[phone] [facility] HTN (chief complaint) fatigue (chief complaint) libido (chief complaint) Dietary surveillance and counselingHypertens ion, UnspecifiedFatigue / Malaise 3 Vicente Reynaga. [address], [place], [place], [address] , [place]. [phone] Referring Provider: Ronnell Zhang, [address], [place], [place], [address]. tel:[phone] PREV VISIT, EST, AGE 40-64 [facility], [address], [place], [place], [address], [place] tel:[phone] [facility] Physical (chief complaint) Dietary surveillance and counselingRoutine Medical ExamDiabetes Mellitus Type 2, UncomplicatedHypert ension, UnspecifiedUnspecif ied vitamin d deficiencyRoutine Medical Exam 3 Vicente Reynaga. [address], [place], [place], [address] , [place]. [phone] Family History Family Member Type Diagnosis Age At Onset Mother Problem (finding) hip fx Father Problem (finding) Stroke Brother Problem (finding) Coronary artery disease Brother Problem (finding) Diabetes mellitus Payers Payer name Insurance type Covered libertarian ID Authoriza tion(s) [employer] [place] WPS MB [id number] For Life CI [id number] Social History Type Description Quantity Date Captured Comments Alcohol Use Details Unknown Caffeine Use Details Unknown Tobacco Use Status Smoking Status No Information Sex Male Chief Complaint And Reason For Visit No Information Plan Of Treatment Date Type Action Status Goal FOBT. Due on due Goal Td vaccine. Due on 25 due Goal Pneumococcal vaccine. Due on due Goal Influenza vaccine. Due on due Goal Tdap. Due on due Goal Abdominal ultrasound. Due on due Goal Cognitive assessment. Due on due Goal Zoster vaccine. Due on due Goal PSA. Due on due Goal Sigmoidoscopy. Due on due Goal Depression screening. Due on due Goal Lipid panel. Due on due Goal Abdominal ultrasound. Due on due Goal Tdap. Due on due Goal Influenza vaccine. Due on due Goal Pneumococcal vaccine. Due on due Goal Td vaccine. Due on due Goal Lipid panel. Due on due Goal Depression screening. Due on due Goal Sigmoidoscopy. Due on due Goal PSA. Due on due Goal Zoster vaccine. Due on due Goal Cognitive assessment. Due on due Goal FOBT. Due on due Goal Depression screening. Due on due Goal Lipid panel. Due on due Goal Td vaccine. Due on due Goal Pneumococcal vaccine. Due on due Goal Influenza vaccine. Due on due Goal FOBT. Due on due Goal Cognitive assessment. Due on due Goal Zoster vaccine. Due on due Goal PSA. Due on due Goal Sigmoidoscopy. Due on due Goal Abdominal ultrasound. Due on due Goal Tdap. Due on due Goal FOBT. Due on due Goal Influenza vaccine. Due on Oc due Goal Pneumococcal vaccine. Due on due Goal Td vaccine. Due on due Goal Tdap. Due on due Goal Abdominal ultrasound. Due on due Goal Sigmoidoscopy. Due on due Goal PSA. Due on due Goal Zoster vaccine. Due on due Goal Cognitive assessment. Due on due Goal Depression screening. Due on due Goal Lipid panel. Due on due Goal Abdominal ultrasound. Due on due Goal Tdap. Due on due Goal Td vaccine. Due on due Goal Pneumococcal vaccine. Due on due Goal Influenza vaccine. Due on due Goal FOBT. Due on due Goal Sigmoidoscopy. Due on due Goal PSA. Due on due Goal Zoster vaccine. Due on due Goal Cognitive assessment. Due on due Goal Depression screening. Due on due Goal Lipid panel. Due on due Goal Lipid panel. Due on due Goal Depression screening. Due on due Goal Cognitive assessment. Due on due Goal Zoster vaccine. Due on due Goal PSA. Due on due Goal Sigmoidoscopy. Due on due Goal Abdominal ultrasound. Due on due Goal Tdap. Due on due Goal Td vaccine. Due on due Goal Pneumococcal vaccine. Due on due Goal Influenza vaccine. Due on due Goal FOBT. Due on due Goal FOBT. Due on due Goal Influenza vaccine. Due on due Goal Pneumococcal vaccine. Due on due Goal Td vaccine. Due on due Goal Lipid panel. Due on due Goal Depression screening. Due on due Goal Cognitive assessment. Due on due Goal Zoster vaccine. Due on due Goal PSA. Due on due Goal Sigmoidoscopy. Due on due Goal Abdominal ultrasound. Due on due Goal Tdap. Due on due Goal Pneumococcal vaccine. Due on due Goal Influenza vaccine. Due on due Goal FOBT. Due on due Goal Tdap. Due on due Goal Abdominal ultrasound. Due on due Goal Sigmoidoscopy. Due on due Goal Td vaccine. Due on due Goal Lipid panel. Due on due Goal Depression screening. Due on due Goal Cognitive assessment. Due on due Goal Zoster vaccine. Due on due Goal PSA. Due on due Goal Pneumococcal vaccine. Due on due Goal Td vaccine. Due on due Goal Lipid panel. Due on due Goal Depression screening. Due on due Goal Cognitive assessment. Due on due Goal Zoster vaccine. Due on due Goal PSA. Due on due Goal Influenza vaccine. Due on due Goal FOBT. Due on due Goal Tdap. Due on due Goal Abdominal ultrasound. Due on due Goal Sigmoidoscopy. Due on due Goal Sigmoidoscopy. Due on due Goal Abdominal ultrasound. Due on due Goal Tdap. Due on due Goal FOBT. Due on due Goal Influenza vaccine. Due on due Goal PSA. Due on due Goal Zoster vaccine. Due on due Goal Cognitive assessment. Due on due Goal Depression screening. Due on due Goal Lipid panel. Due on due Goal Td vaccine. Due on due Goal Pneumococcal vaccine. Due on due Goal Pneumococcal vaccine. Due on due Goal Td vaccine. Due on due Goal Lipid panel. Due on due Goal Depression screening. Due on due Goal Cognitive assessment. Due on due Goal Sigmoidoscopy. Due on due Goal Abdominal ultrasound. Due on due Goal Tdap. Due on due Goal FOBT. Due on due Goal Influenza vaccine. Due on due Goal PSA. Due on due Goal Zoster vaccine. Due on due Goal Td vaccine. Due on due Goal Lipid panel. Due on due Goal Depression screening. Due on due Goal Abdominal ultrasound. Due on due Goal Cognitive assessment. Due on due Goal Sigmoidoscopy. Due on due Goal Pneumococcal vaccine. Due on due Goal Tdap. Due on due Goal FOBT. Due on due Goal Colonoscopy. Due on due Goal Influenza vaccine. Due on due Goal PSA. Due on due Goal Zoster vaccine. Due on due Goal Sigmoidoscopy. Due on due Goal Cognitive assessment. Due on due Goal Abdominal ultrasound. Due on due Goal Depression screening. Due on due Goal Lipid panel. Due on due Goal Td vaccine. Due on due Goal Pneumococcal vaccine. Due on due Goal Tdap. Due on due Goal FOBT. Due on due Goal Colonoscopy. Due on due Goal Influenza vaccine. Due on due Goal PSA. Due on due Goal Zoster vaccine. Due on due Goal Sigmoidoscopy. Due on due Goal Cognitive assessment. Due on due Goal Abdominal ultrasound. Due on due Goal Depression screening. Due on due Goal Lipid panel. Due on due Goal Td vaccine. Due on 20 due Goal Pneumococcal vaccine. Due on due Goal Tdap. Due on due Goal FOBT. Due on due Goal Colonoscopy. Due on due Goal Influenza vaccine. Due on due Goal PSA. Due on due Goal Zoster vaccine. Due on due Goal Tobacco cessation counseling completed Goal Sigmoidoscopy. Due on due Goal Cognitive assessment. Due on due Goal Abdominal ultrasound. Due on due Goal Depression screening. Due on due Goal Lipid panel. Due on due Goal Td vaccine. Due on 19 due Goal Pneumococcal vaccine. Due on due Goal Tdap. Due on due Goal FOBT. Due on due Goal Colonoscopy. Due on due Goal Influenza vaccine. Due on due Goal PSA. Due on due Goal Zoster vaccine. Due on due Goal Tobacco cessation counseling completed Goal Sigmoidoscopy. Due on due Goal Abdominal ultrasound. Due on due Goal Depression screening. Due on due Goal Lipid panel. Due on 018 due Goal Td vaccine. Due on 18 due Goal Tdap. Due on due Goal FOBT. Due on due Goal Colonoscopy. Due on 018 due Goal Influenza vaccine. Due on due Goal PSA. Due on due Goal Zoster vaccine. Due on due Goal Special diet education compl eted Goal Zoster vaccine. Due on due Goal PSA. Due on due Goal Influenza vaccine. Due on due Goal Colonoscopy. Due on 016 due Goal FOBT. Due on due Goal Tdap. Due on due Goal Td vaccine. Due on 16 due Goal Depression screening. Due on due Goal Sigmoidoscopy. Due on due Goal PSA. Due on due Goal Colonoscopy. Due on 015 due Goal Depression screening. Due on due Goal FOBT. Due on due Goal Influenza vaccine. Due on due Goal Sigmoidoscopy. Due on due Goal Td vaccine. Due on 15 due Goal Tdap. Due on due Goal Zoster vaccine. Due on due Goal Colonoscopy. Due on 013 due Goal PSA. Due on due Goal Tobacco cessation counseling completed Goal Tobacco cessation counseling completed Goal Tobacco cessation counseling completed Goal Tobacco cessation counseling completed Referral Referred To: Goukl Ruff [address] [place], [id number] Ordered: Referrals: Gokul Ruff. Evaluate and treat ordered Referral Ordered: Infectious Disease (related to Abnormal result of Mantoux test) ordered Referral Ordered: Referrals: Infectious Disease. Evaluate and treat ordered Referral Ordered: CHEST X-RAY PA/LAT TWO-VIEWS ordered Referral Ordered: Physical Therapy (related to Weakness) ordered Referral Referred To: Physical Therapy Ordered: Referrals: Physical Therapy. Evaluate and treat ordered Referral Ordered: Urology (related to Elevated prostate specific antigen [PSA]) ordered Referral Ordered: Referrals: Urology. Evaluate and treat ordered Referral Ordered: DOPPLER ECHO EXAM, HEART ordered Referral Ordered: MRI BRAIN W/O & W/DYE ordered Referral Ordered: COLONOSCOPY AND BIOPSY ordered Appointment Yvan Chau BOOKED History Of Present Illness Encounter Date Complaint History Of Prese nt Illness UTI1 Pt has chronic f oley and he notice some cloudy urine recently and he had UA done which showed UTi with hematuria. Pt denies any fever, chill pneumonia1 Pt recently was admitted to hospital for aspiration pneumonia. Pt was treated with abx. He does have history of CVA with dysphagia. He was evaluated by speech and he is currently using G tube feeding now and he no longer swallowing food. Pt denies any cough or sob or any fever, chill. Pt was given albuterol from hospital but he was never given nebulizer machine. He states that he does not feel sob and he does not need albuterol anymore dysphagia1 Pt is not able t o swallow food anymore after speech evaluation and he is getting strict G tube feeding now anemia1 Pt has chronic a nemia Pt denies any bleeding Pt had benign EGD Pt did not do colonoscopy. renal Pt has renal riya lure. His creatine was 2.2 which is stable from 2.1 recently. pt has normal UO he uses perdomo catheter HTN Pt has HTN and p aroxymal afib .Pt is on metoprolol and eliquis .Pt saw cardiology recently and he was told to continue current meds. Pt denies any chest pain or sob or palpitation. HLP Pt has HLP Pt is on lipitor. Pt denies any myalgia. anxiety1 Pt has anxiety a nd depression .Pt doing ok with remeron. Pt denies any suicidal or homicidal thought Pt denies any crying spells. BPH1 Pt has BPH. Pt i s on flomax and proscar. Pt sees urology. pt has chronic perdomo in place. UTI1 Pt was recently admitted to hospital for UTI with sepsis with acute renal failure. His creatine was 2.7 and subsequently dropped to 2.1. he did have abnormal UPEP. Pt was evaluated by nephrology while inpatient. BPH Pt has BPH with chronic perdomo placement and he sees urology. He is on flomax and also finasteride. anxiety Pt has chronic a nxiety and depression Pt is on remeron and needs refilled .Pt denies any suicidal or homicidal thought. 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 Pt underwent PEG tube placement at [facility] and he was discharged yesterday. Pt had benign EGD while in hospital but colonoscopy not done. He is on lipitor, metoprolol. He denies any chest pain or sob. Pt is chronically wheel chair bound. he admits that he has been cheating with oral intake despite risk for aspiration pneumonia. Pt took IV abx while in hospital. He denies any chest pain or sob or cough. He denies any hemoptysis. 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 CTA of head and neck ok. MRI showed old CVA and small vessel disease. pt does not have any acute neurological deficit afib1 Pt had brief epi sode of afib several months ago he is on metoprolol. He chani any chest pain or palpitation or sob. he was started on lipitor by [facility] physician but he has not been taking it. anxiety1 Pt has chronic a nxiety and depression Pt takes remeron qhs and doing ok pt denies any suicidal or homicidal thought Pt denies any crying spells. pneumonia1 Pt recently was admitted to hospital again for pneumonia and UTI with mental status change. Pt was treated with IV abx and he was discharged 8 days ago Pt overall feels well Pt denies any fever, chill, cough and he feels fine. He has difficulty with urination due to BPH and he has perdomo catheter inserted by urology. Pt sees urology Pt is on proscar and flomax by urology. anxiety1 Pt states that h e does not feel anxious or depressed and his appetite and sleep are better so he is not taking remeron anymore. Pt denies any suicidal or homicidal thought. Pt denies any crying spells. anemia1 Pt has chronic s table anemia with normal iron and high ferritin. Pt denies any blood loss. Pt has amish with GI for EGD and colonoscopy soon. DM Pt is pre-diabet ic. His A1c is 6.1. He denies any polyuria, polydipsia. pt has mild low calcium pneumonia1 Pt was recently admitted to hospital for pneumonia and UTI. Pt has treated with IV abx and then oral abx. Pt denies any sob or chest pain Pt denies any urinary symptoms Pt denies any mental status change. Pt feels fine now. hypothyroidism1 Pt has hypothyro idism on recent lab. Pt has chronic fatigue. Pt gained some weight slowly. Pt has low prealbumin ad albumin due to lack of calorie. Pt has been eating more lately and he is drinking boost. 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 Pt denies any fever, chill, night sweat, recent travel, cough, etc .Pt states that he was treated for TB many years ago with medication x 6 months physical Pt needs annual physical Pt has not seen me for more than one year. Pt is in very poor health. Pt has severe depression and anxiety. Apparently he was admitted to hospital recently due to encephalopathy from ARF. he also had pneumonia. Pt was found to have urinary obstruction from BPH. He currently sees urology with perdomo catheter intact for urination He is on flomax. He also had acute brief episode of afib which resolved upon discharge from hospital Pt denies any chest pain or sob or palpitation Pt is living in [facility] now He denies any suicidal or homicidal thought. He denies any crying spells Pt also has lost large amount of weight .He also has dysphagia with post swallowing cough. He c/o feeling weakness overall with his muscle Pt ambulate with wheel chair but he is able to ambulate on his own but feels muscle fatigue with ambulation HTN Pt has history o f HTN .Pt is off irbesartan and his bp is ok. Pt denies any dizziness or syncope. Pt denies any chest pain DM Pt has history o f DM. Pt lost a lot of weight due to depression and he no longer has DM. He is off metformin PSA Pt has elevated PSA. Pt has difficulty initiating urine with slow stream. Pt denies any dysuria. anemia1 Pt has anemia an d high wbc. Pt denies any blood loss. Pt has not heard from GI yet for EGD and colonoscopy Pt has mildly high platelet pt denies any bruising or bleeding HLP Pt has mild HLP. his HDL is high also weight loss1 Pt has been losi ng weight due to poor eating. Pt has depression Pt states that he only took remeron for several nights but stopped it for feeling sleepiness. Pt states that he does not want to do anything the next day but he feels that way regardless of taking remeron or not. Pt denies any suicidal or homicidal thought Pt denies any crying spells physical Pt needs annual physical Pt has HTn and DM Pt lost his g/f 10 months ago and he has been in bereavement and he has not left the house very much and he has been passing out frequently. he denies any orthostasis. Pt just passes out for no reason. Pt also has not been eating much food at al due to poor appetite due to sadness .Pt states that he usually passes out for several seconds for no reason. He denies any chest pain or palpitation. He denies any abd pain, nausea, vomiting, early satiety, etc. He denies blood in stool or bowel change. Pt lost good amount of weight. 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 Pt is not aware of previous CVA. Pt denies any seizure activity. Pt is on irbesartan and metformin. Pt states that sometimes his bp is very low. weight loss1 Pt has bee losin g weight due to poor appetite and depressive mood Pt denies any nausea ,vomiting early satiety, change of bowel, blood in stool, abd raquel, etc. depression1 His recentl y had a CVA and is not doing well .Pt kind feels depressed due to above Pt denies any suicidal or homicidal thought pt denies any crying spells. Pt has been having poor appetite due to his mood . DM Pt has DM Pt william es metformin Pt also has not been checking his glucose at home Pt denies any polyuria, polydipsia Pt denies any vision change or neuropathy HTN Pt takes irbesar lawrence. Pt has not been checking his bp at home Pt denies any chest pain or headache folate Pt has low folat e .PT does not eat green vegetable very much. Pt denies any neuropathy HTN Pt has HTn Pt ta kes irbesartan and his bp is stable Pt denies any chest pain or headache KCL Pt has borderlin e low KCL Pt denies any chest pain or palpitation. DM Pt takes metform in and his glucose is around 110 at home Pt denies any polyuria, polydipsia. Pt denies any neuropathy. his A1c and glucose are almost normal now. Pt denies any vision change HTN Pt has HTN. Pt t akes irbesartan. His BP is borderline. He denies any chest pain or headache DM Pt has DM pt william es metformin. his a1c is 6.4. His glucose is 128 Pt denies any polyuria, polydipsia. Pt denies any neuropathy symptoms physical Pt needs annual physical.. Pt is extremely noncompliant. Patient has diabetes. Patient has hypertension. Pt is extremely noncompliant Pt does not take any medication for DM as well as HTN. His BP is high ,pt has been losing weight, Pt denies any appetite loss, nausea, vomiting, early satiety, diarrhea, blood in stool, abd pain, etc, pt states that he is trying to diet and exercise and weight loss. Pt states that he checked his BG occasionally and has been around 150s. Pt denies any polyuria polydipsia. Pt recently went to dentist due to toothache. However, his BP was high and he was told to get clearance for dental work He presented to office today for clearance. Pt denies any neuropathy symptoms. PHysical Pt needs annual physical. pt has Dm and HTN, Pt has not been taking any medication for long time Pt is noncompliant Pt denies any polyuria, polydipsia pt denies any numbness Pt denies any chest pain or headache. Pt denies any other complaints DM Pt has DM. Pt on ly takes metofmrin once per day and he always forget his 2nd dose of metofrmin. His BG is around 120s. Pt denies any polyuria, polydipsia Pt denies any numnbess. HTN1 Pt takse losatan .hctz. His BP is borderline today. PT denies any chest pain or headache HLP Pt has mild elev ated TC. Pt is not compliant with diet HTN Pt has HTN. Pt d oes not take losarta.HCTZ dialy. He just finish his 3 months supply in the span of almost 6 months. Pt denies anychest pain HLP Pt has mild HLP. Pt is not eating very healthy proteinuria Pt has mild prot einuria on lab Pt denies any UTI symptoms DM Pt has DM. Pt is noncompliant. Pt does not take metofmrin daily. Pt statse that his BG is around 115. Pt denies any polyuria, polydipsia. Pt denies any numbness Instructions Date Instruction Additional Infor ying Special diet education Related t o Body mass index (BMI) 27.0-27.9, adult Quit smoking Related to Encnt r for general adult medical exam w/o abnormal findings Weight management Related to Enc ntr for general adult medical exam w/o abnormal findings Prescribed Diet Educ ation/Lifestyle Education Regarding Diet Related to Dietary Surveillance and Counseling Prescribed Activity and Exercise Education Related to Dietary Surveillance and Counseling Prescribed Diet Educ ation/Lifestyle Education Regarding Diet Related to Dietary Surveillance and Counseling Prescribed Activity and Exercise Education Related to Dietary Surveillance and Counseling Physical activity counseling Rel ated to Dietary surveillance counseling Decrease caloric intake Related to Dietary surveillance counseling Dietary counseling Related to Di etary surveillance counseling Decrease caloric intake Related to Dietary surveillance counseling Dietary counseling Related to Di etary surveillance counseling Decrease caloric intake Related to Dietary surveillance counseling Decrease caloric intake Related to Dietary surveillance counseling Dietary counseling Related to Di etary surveillance counseling Assessments Type Assessment Date No Information
--- OUTSIDE RECORDS SUMMARY | 2025-04-19 20:37 | XMS_ITS | Referral Summary ---
Author Organization [facility] [address] Address [address] [place] [address] Care Team Providers Care Compensation Director Name Role Phone Ronnell Zhang MD Primary Care Provider [phone] Allergies No known active allergies Medications metoprolol [...] unspecified acute renal riya lure type 11/03/2023 Social History Tobacco Use Types Packs/Day Years Used Date Smoking Tobacco: Every Day Cigarettes Smokeless Tobacco: Never Alcohol Use Standard Drinks/Week Comments Not Currently 0 (1 standard drink = 0.6 oz pur e alcohol) [facility] Utilities Answer Date Recorded In the past 12 months has th e electric, gas, oil, or water company threatened to shut off services in your home? No 04/30/2024 Social Connection and Isolation Panel [NHANES] A nswer Date Recorded In a typical week, how many times do you talk on the phone with family, friends, or neighbors? Twice a week 04/30/2024 How often do you get togethe r with friends or relatives? Once a week 04/30/2024 How often do you attend religious or religion serv ices? Never 04/30/2024 Do you belong to any clubs o r organizations such as religious groups, unions, fraternal or athletic groups, or [...] place to sleep or slept in a assisted (including now)? No 11/03/2023 Housing Stability Vital Sign Answer Bello e Recorded In the last 12 months, was t here a time when you were not able to pay the mortgage or rent on time? No 04/30/2024 In the past 12 months, how m any times have you moved where you were living? 1 04/30/2024 At any time in the past 12 m [facility], were you homeless or living in a assisted (including now)? No 04/30/2024 Personal Safety Answer [...] on file Legal Sex Male 9:18 AM [employer] Gender Identity Not on file Sexual Orientation Not on file Last Filed Vital Signs Vital Sign Reading [...] 04/27/2024 8:56 PM CDT Plan of Treatment Not on file Procedures Procedure Name Priority Date/Time Associated Diagnosis Comments CT CHEST ABDOMEN PELVIS WO CONTRAST ED 04/27/2024 6:13 PM CDT PSA SCREEN Routine 11/03/2023 6:24 PM [employer] from Last 3 Months or Most Recently [...] Rashel Camacho M.D. CH: JACLYN Report ID: [id number] Reading Location: [id number] Procedure Note Rashel Camacho Jr., MD - [...] Electronically signed by Rashel Camacho M.D. CH: Report ID: [id number] Reading Location: [place] [address] Sebastian Ann MD IM CT PROCEDURES Final Res ult * (ABNORMAL) PSA screen (11/03/2023 6:24 PM [employer]) PSA-Total 11.60(H) <=5.40 ng/mL [facility] ([place]) Comment: Interpretive Data AGE SEX REFERENCE INTERVAL [...] last revised 22. Blood 11/03/2023 6:24 PM C[employer] 11/03/2023 6:32 PM [employer] Jose Rahman MD LAB BLOOD ORDERABLES Final Result [facility] ([facility]) [facility] [place] [address] from Last 3 Months or Most Recently Relevant to Health Maintenance Insurance MEDICARE [place] [employer] MEDICARE MEDICARE FOR LIFE Advance Directives For more information, please contact: [phone] * Full Code (Latest Code Status on File) Date Activated Date Inactivated Comments 04/27/2024 9:18 PM 05/01/2024 10:25 PM * Full Code Date Activated Date Inactivated Comments 11/03/2023 3:49 AM 11/10/2023 6:43 PM Care Teams Compensation Director Relationship Specialty Start Date End Date Ronnell Zhang MD [address] [place] [id number] PCP - General Family Medicine 11/02/23
--- OUTSIDE RECORDS SUMMARY | 2025-04-19 20:37 | XMS_ITS | Clinical Summary ---
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 Active 11-21 [...] 01-08 00:00: 00 03-26 23:59 :00 No [id number] 1 tablet DAILY 1 tablet DAILY (route: oral) Med Classific ation: Electroly te Balance-N utritiona l Products ferrous sulfate 324 mg (65 mg iron) tablet,tho yed release 01-08 00:00: 00 03-26 23:59 :00 No [id number] 1 tablet 2 TIMES DAILY 1 tablet 2 TIMES DAILY (route: oral) Med Classific ation: Electroly te Balance-N utritiona l Products metoprolol tartrate 50 mg tablet 01-08 00:00: 00 05-19 00:00 :00 No [id number] 1 tablet 2 TIMES DAILY 1 tablet 2 TIMES DAILY (route: oral) Med Classific ation: Cardiovas cular Therapy Agents potassium chloride ER 20 mEq tablet,exte nded release 01-08 00:00: 00 03-26 23:59 :00 No [id number] 1 tablet DAILY 1 tablet DAILY (route: oral) Med Classific ation: Electroly te Balance-N utritiona l Products tamsulosin 0.4 mg capsule 01-08 00:00: 00 05-19 00:00 :00 No [id number] 1 capsule 2 TIMES DAILY 1 capsule 2 TIMES DAILY (route: oral) Med Classific ation: Genitouri nary Therapy Thera 400 mcg tablet 2-18 00:00: 00 02-12 23:59 :00 No [id number] 1 tablet DAILY 1 tablet DAILY (route: oral) Med Classific ation: Electroly te Balance-N utritiona l Products amoxicillin 875 mg-potassiu m clavulanate 125 mg tablet 3-17 00:00: 00 02-07 23:59 :00 No [id number] 1 tablet 2 TIMES DAILY 1 tablet 2 TIMES DAILY (route: oral) Med Classific ation: Anti-Infe ctive Agents bethanechol chloride 5 mg tablet - 00:00: 00 03-26 23:59 :00 No [id number] 1 tablet 2 TIMES DAILY 1 tablet 2 TIMES DAILY (route: oral) Med Classific ation: Genitouri nary Therapy therapeutic multivitami n tablet 3-16 00:00: 00 05-19 00:00 :00 No [id number] 1 tablet DAILY 1 tablet DAILY (route: oral) Alternate Route: NONE. Med Classific ation: Electroly te Balance-N utritiona l Products sodium chloride 0.9 % irrigation solution 4-16 00:00: 00 05-19 00:00 :00 No [id number] 30-60 mL NEEDED 30-60 mL NEEDED (route: irrigation ) Med Classific ation: Electroly te Balance-N utritiona l Products Aspirin Childrens 81 mg chewable tablet - 00:00: 00 05-19 00:00 :00 No [id number] 1 tablet DAILY 1 tablet DAILY (route: oral) Med Classific ation: Hematolog ical Agents atorvastati n 40 mg tablet - 00:00: 00 05-19 00:00 :00 No [id number] 1 tablet BEDTIME 1 tablet BEDTIME (route: oral) Med Classific ation: Cardiovas cular Therapy Agents bethanechol chloride 5 mg tablet - 00:00: 05-19 00:00 :00 No [id number] 1 tablet 3 TIMES DAILY 1 tablet 3 TIMES DAILY (route: oral) Med Classific ation: Genitouri nary Therapy finasteride 5 mg tablet 03-26 00:00: 05-19 00:00 :00 No [id number] 1 tablet DAILY 1 tablet DAILY (route: oral) Med Classific ation: Genitouri nary Therapy mirtazapine 15 mg tablet 03-26 00:00: 05-19 00:00 :00 No [id number] 1 tablet BEDTIME 1 tablet BEDTIME (route: oral) Med Classific ation: Central Nervous System Agents atorvastati n 40 mg tablet 05-19 00:00: 00 09-12 10:45 :46.7 17 No [id number] 1 tablet DAILY 1 tablet DAILY (route: oral) Alternate Route: G-TUBE. Med Classific ation: Cardiovas cular Therapy Agents Eliquis 5 mg tablet 05-19 00:00: 10-25 23:59 :00 No [id number] 1 tablet 2 TIMES DAILY 1 tablet 2 TIMES DAILY (route: oral) Med Classific ation: Hematolog ical Agents ferrous sulfate 220 mg (44 mg iron)/5 mL oral elixir 05-19 00:00: 09-12 10:45 :52.6 No [id number] 5 mL 2 TIMES DAILY 5 mL 2 TIMES DAILY (route: oral) Alternate Route: G-TUBE. Med Classific ation: Electroly te Balance-N utritiona l Products finasteride 5 mg tablet 05-19 00:00: 00 09-12 10:45 :55.1 27 No [id number] 5 mg EVERY AM 5 mg EVERY AM (route: oral) Alternate Route: G-TUBE. Med Classific ation: Genitouri nary Therapy FREE WATER FLUSH 05-19 00:00: 00 10-25 23:59 :00 No [id number] 200 ml 4 TIMES DAILY 200 ml 4 TIMES DAILY (route: G-TUBE) Alternate Route: G-TUBE. Med Classific ation: NONE furosemide 20 mg tablet 05-19 00:00: 00 07-11 23:59 :00 No [id number] 20 mg 2 TIMES DAILY 20 mg 2 TIMES DAILY (route: oral) Alternate Route: G-TUBE. Med Classific ation: Cardiovas cular Therapy Agents hydrocodone 5 mg-acetamin ophen 325 mg tablet 05-19 00:00: 00 10-24 23:59 :00 No [id number] 1 tablet EVERY 6 HOURS 1 tablet EVERY 6 HOURS (route: oral) Med Classific ation: Analgesic , Anti-infl ammatory or Antipyret ic Jevity 1.5 Adama 0.06 gram-1.5 kcal/mL oral liquid 05-19 00:00: 00 08-08 23:59 :00 No [id number] 300 mL 4 TIMES DAILY 300 mL 4 TIMES DAILY (route: oral) Alternate Route: G-TUBE. Med Classific ation: Electroly te Balance-N utritiona l Products metoprolol tartrate 50 mg tablet 05-19 00:00: 00 09-12 10:46 :01.4 93 No [id number] 1 tablet EVERY 12 HOURS 1 tablet EVERY 12 HOURS (route: oral) Alternate Route: G-TUBE. Med Classific ation: Cardiovas cular Therapy Agents mirtazapine 15 mg tablet 05-19 00:00: 00 09-12 10:46 :07.8 53 No [id number] 1 tablet BEDTIME 1 tablet BEDTIME (route: oral) Alternate Route: G-TUBE. Med Classific ation: Central Nervous System Agents tamsulosin 0.4 mg capsule 05-19 00:00: 00 10-25 23:59 :00 No [id number] 1 capsule EVERY PM 1 capsule EVERY PM (route: oral) Med Classific ation: Genitouri nary Therapy acetaminoph en 160 mg/5 mL (5 mL) oral solution 05-19 00:00: 00 09-12 10:43 :21.9 63 No [id number] 20.3 mL EVERY 4 HOURS 20.3 mL EVERY 4 HOURS (route: oral) Alternate Route: PEG TUBE. Med Classific ation: Analgesic , Anti-infl ammatory or Antipyret ic amoxicillin 875 mg-potassiu m clavulanate 125 mg tablet 05-17 00:00: 00 05-19 23:59 :00 No [id number] 1 tablet 2 TIMES DAILY 1 tablet 2 TIMES DAILY (route: oral) Med Classific ation: Anti-Infe ctive Agents sodium chloride 0.9 % irrigation solution 05-19 00:00: 00 Yes [id number] 30-60 mL NEEDED 30-60 mL NEEDED (route: irrigation ) Med Classific ation: Electroly te Balance-N utritiona l Products Jevity 1.5 Adama 0.06 gram-1.5 kcal/mL oral liquid 18 00:00: 00 10-25 23:59 :00 No [id number] Per instruc tions DAILY Per instructio ns DAILY (route: oral) Alternate Route: G-TUBE. Med Classific ation: Electroly te Balance-N utritiona l Products bethanechol chloride 5 mg tablet 2023-11 0-13 00:00: 00 10-25 23:59 :00 No [id number] 1 tablet 3 TIMES DAILY 1 tablet 3 TIMES DAILY (route: oral) Med Classific ation: Genitouri nary Therapy atorvastati n 40 mg tablet 2023-11 0-22 00:00: 00 10-25 23:59 :00 No [id number] 1 tablet DAILY 1 tablet DAILY (route: oral) Med Classific ation: Cardiovas cular Therapy Agents ferrous sulfate 220 mg (44 mg iron)/5 mL oral elixir 2023-11 0-23 00:00: 00 10-25 23:59 :00 No [id number] 5 mL 2 TIMES DAILY 5 mL 2 TIMES DAILY (route: oral) Med Classific ation: Electroly te Balance-N utritiona l Products finasteride 5 mg tablet 2023-11 0-23 00:00: 00 10-25 23:59 :00 No [id number] 1 tablet DAILY 1 tablet DAILY (route: oral) Med Classific ation: Genitouri nary Therapy metoprolol tartrate 50 mg tablet 2023-11 0 00:00: 00 10-25 23:59 :00 No [id number] 1 tablet EVERY 12 HOURS 1 tablet EVERY 12 HOURS (route: oral) Med Classific ation: Cardiovas cular Therapy Agents mirtazapine 15 mg tablet 2023-11 0 00:00: 00 10-25 23:59 :00 No [id number] 1 tablet BEDTIME 1 tablet BEDTIME (route: oral) Med Classific ation: Central Nervous System Agents atorvastati n 40 mg tablet 2023-11 00:00: 00 Yes [id number] 1 tablet DAILY 1 tablet DAILY (route: oral) Alternate Route: G-TUBE. Med Classific ation: Cardiovas cular Therapy Agents bethanechol chloride 5 mg tablet 2023-11 00:00: 00 Yes [id number] 1 tablet 3 TIMES DAILY 1 tablet 3 TIMES DAILY (route: oral) Alternate Route: G-TUBE. Med Classific ation: Genitouri nary Therapy Children's Tylenol 160 mg/5 mL oral suspension 2023-11 00:00: 00 Yes [id number] 20.3 mL NEEDED 20.3 mL A S NEEDED (route: oral) Alternate Route: G-TUBE. Med Classific ation: Analgesic , Anti-infl ammatory or Antipyret ic Eliquis 5 mg tablet 2023-11 00:00: 00 Yes [id number] 1 tablet 2 TIMES DAILY 1 tablet 2 TIMES DAILY (route: oral) Alternate Route: G-TUBE. Med Classific ation: Hematolog ical Agents finasteride 5 mg tablet 2023-11 00:00: 00 Yes [id number] 1 tablet DAILY 1 tablet DAILY (route: oral) Alternate Route: G-TUBE. Med Classific ation: Genitouri nary Therapy ipratropium 0.5 mg-albutero l 3 mg (2.5 mg base)/3 mL nebulizatio n soln 2023-11 00:00: 00 01-10 23:59 :00 No [id number] 3 mL NEEDED 3 mL NEEDED (route: inhalation ) Med Classific ation: Respirato ry Therapy Agents Jevity 1.5 Adaam 0.06 gram-1.5 kcal/mL oral liquid 2023-11 00:00: 00 Yes [id number] 300 mL 4 TIMES DAILY 300 mL 4 TIMES DAILY (route: oral) Alternate Route: G-TUBE. Med Classific ation: Electroly te Balance-N utritiona l Products metoprolol tartrate 50 mg tablet 2023-11 00:00: 00 Yes [id number] 1 tablet 2 TIMES DAILY 1 tablet 2 TIMES DAILY (route: oral) Alternate Route: G-TUBE. Med Classific ation: Cardiovas cular Therapy Agents mirtazapine 15 mg tablet 2023-11 00:00: 00 Yes [id number] 1 tablet BEDTIME 1 tablet BEDTIME (route: oral) Alternate Route: G-TUBE. Med Classific ation: Central Nervous System Agents Macrobid 100 mg capsule 02-12 00:00: 00 02-22 23:59 :00 No [id number] 1 capsule EVERY 12 HOURS 1 capsule [...] FOR HOME HEALTH.] Future Scheduled Test [facility] MAY ACCEPT ORDERS FROM THE FOLLOWING PHYSICIANS: AUTOMATION AND CONTROLS MANAGER/TREATING PROVIDERS [code = HOME HEALTH AGENCY MAY ACCEPT ORDERS FROM THE FOLLOWING PHYSICIANS: AUTOMATION AND CONTROLS MANAGER/TREATING PROVIDERS] Future Scheduled Test SKILLED NU RSE [...] BLOCKAGE/LEAKAGE, HEAVY SEDIMENT. 1 - 3 PRN CORRECTION VISITS FOR CATHETER CHANGE(S) AND/OR TROUBLESHOOTING. [code = SKILLED NURSE TO INSTRUCT PATIENT/CAREGIVER AND PERFORM CARE AND MANAGEMENT OF INDWELLING URINARY CATHETER. COBURN CATHETER INSERTION WITH 16 FR CATHETER WITH 10 ML BALLOON VIA STERILE TECHNIQUE, CHANGE Q MONTH AND PRN FOR LEAKING OR MALFUNCTIONING CATHETER. IRRIGATE URINARY CATHETER WITH 30-60CC NORMAL SALINE PRN BLOCKAGE/LEAKAGE, HEAVY SEDIMENT. 1 - 3 PRN CORRECTION VISITS FOR CATHETER CHANGE(S) AND/OR TROUBLESHOOTING.] Future [...] MAINTAIN SITUATIONAL AWARENESS AND WILL NOTIFY CLINICAL CADDIE AND PHYSICIAN/PROVIDER WITH ANY CHANGE IN CONDITION. [code = SKILLED NURSE TO PERFORM ENVIRONMENTAL SAFETY RISK ASSESSMENT AND FALL RISK ASSESSMENT AND PROVIDE INSTRUCTION TO IMPLEMENT ENVIRONMENTAL SAFETY AND FALL PREVENTION STRATEGIES THROUGHOUT THE CERTIFICATION PERIOD. SKILLED NURSE WILL MAINTAIN SITUATIONAL AWARENESS AND WILL NOTIFY CLINICAL CADDIE AND PHYSICIAN/PROVIDER WITH ANY CHANGE IN CONDITION.] [...] CARE WILL BE ESTABLISHED THAT MEETS PATIENT'S CORRECTION NEEDS AND INCLUDES PATIENT GOAL FOR HOME [...] End Date/Time Encounter Type Admission Type Attending [facility] Care Department Encounter ID Discharge Date Discharge Status Discharge Condition Discharge Reason Percent Goals Met 2025-03-15 00:00:00 2025-05-13 00:00:00 Outpatient RECERTIFIC MIRELA YUSUF [facility] [id number] 34.69
[2025-04-19 20:38] LABS: Alanine Aminotransferase 34 U/L (6-50); Albumin Level 3.7 g/dL (3.5-5.1); Alkaline Phosphatase 156 U/L (38-126); Anion Gap 11 mmol/L (4-12); Aspartate Amino Transferase 43 U/L (17-59); Bilirubin,Total 0.8 mg/dL (0.2-1.3); Blood Urea Nitrogen 28 mg/dL (9-20); Calcium 9.3 mg/dL (8.4-10.2); Carbon Dioxide 26 mmol/L (22-30); Chloride 105 mmol/L (98-107); Creatine Kinase 32 U/L (55-170); Estimated CRCL calculation 32 ml/min; Estimated Glomerular Filt Rate 39; Glucose 131 mg/dL (65-110); Partial Thromboplastin Time 34.5 Seconds (22.3-36.8); Potassium 3.7 mmol/L (3.4-5.0); Sodium 142 mmol/L (137-145)
[2025-04-19 22:28] LABS: Add Urine Microscopic? YES; Appearance Urine Turbid (Clear); Bacteria Urine 2+ /hpf; Bilirubin Urine Negative (Negative); Blood Urine 3+ (Negative); Color Urine Dark Yellow (Yellow); Glucose Urine UA Negative (Negative); Ketones Urine Negative (Negative); Leukocyte Esterase Ur 3+ LEU/UL (Negative); Need Manual Microscopic Reviewed; Nitrate Urine Negative (Negative); Protein Urine 3+ mg/dL (Negative); RBC Urine 51-100 /hpf (0-2); Specific Grav Ur > 1.045 (1.001-1.035); Squamous Epithelial Cell Urine Many /hpf (Few); WBC Clumps Urine Present /HPF; WBC Urine >100 /hpf (0-3); pH Urine 5.5 (5.0-9.0)
[2025-04-20] VITALS (8 sets, daily range): BP systolic 112–159; BP diastolic 65–96; PULSE 56–73; RESP 15–20; TEMP 36.4–36.8; O2SAT 97–100; BMI 21.1
--- NOTE | 2025-04-20 01:39 | ADMGEN ---
This patient, Yvan Chau, was admitted to Medical Room 342-01. Patient/family oriented to hospital policies and general routines including ID bracelet, bed and alarms, visiting hours, pain management, procedures, bathroom and other care routines, personal items, smoking policy, room service/diet, and visiting hours. Information on how to activate the Rapid Response Team has been discussed. Patient/Family are encouraged to report perceived risks to care and to ask questions if they do not understand what they are told or what they should do.
--- NOTE | 2025-04-20 03:01 | P.HP_ITS ---
H&P: HPI History of Present Illness Date/Time: 04/20/25 03:01 Chief Complaint: Fall Narrative: 70-year-old male with history of CKD, prior CVA with residual aphasia, dysphagia, status post G-tube neurogenic bladder with indwelling Bosch catheter, anxiety, mhs-[id number] diabetes mellitus. Patient using has family members close by to check on him but they are preoccupied by a new in the family. The patient has not been seen by Tuesday. He was found down on 04/19/2025 brought to [facility]. Patient is able to recollect the events. He reports he usually ambulates independently. 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 He was walking with snacks in his hands and then he fell. He does not remember losing consciousness. He was too weak to get up so he crawled to the living room and he laid there. He did not have his phone on him to call anyone. He denies any specifics symptoms ER evaluation hemodynamic stable. Hemoglobin 11.2, leukocytosis with WBC 12.9. Urine cloudy. UA contaminated and possibly infected. Given Rocephin. Patient did not have anyone at home to help him with crushing his antibiotics therefore patient admitted for observation to ensure safe discharge. Review of Systems Review of Systems: All systems reviewed & are unremarkable except as noted in HPI and below (HPI) PMFSH Past Medical History Medical History Chronic anemia PAF (paroxysmal atrial fibrillation) Combined systolic and diastolic congestive heart failure CKD (chronic kidney disease) Anxiety Arthritis TIA (transient ischemic attack) CVA (cerebral vascular accident) Per MRI on 03/20/2024, old infarcts in the bilateral basal ganglia Indwelling Bosch catheter present Non-insulin dependent diabetes mellitus Normocytic anemia Hyperlipidemia Neurogenic bladder Obstructive uropathy BPH loc w urin obs/LUTS Hypertension Surgical History Surgical History History of appendectomy Family History Family History (Updated 04/20/25 @ 02:20 by Rose Duran RN) Father Cerebrovascular accident Mother Alcohol abuse Alcohol abuse by patient's mother Heart attack Hypertension Social History Social History Social History: Has a daughter Smoking packs per day: 1 Smoking cigarettes per day: 20.0 Years smoked: 20 Smoking pack-years: 20.00 Smoking status: Current every day smoker Tobacco type: cigarettes Second hand tobacco smoke exposure: Yes Additional smoking assessment comments: pt states he started smoking when he got at the age of 39 Alcohol intake: former Drinks per week: 1 Alcohol use details: couple times a week (happy hour) Substance use: current Substance use type: marijuana Other substance usage details: smokes marijuana when friends bring it to him Last use: 04/04/25 Do You Feel Safe in your Home?: Yes Lack of Transportation: No Lack of Food: Never True Current Housing: I Have Housing Concerned About Future Housing: No Difficulty Paying Gas/Electric Bills: No Difficulty Paying for Meds: No Currently Unemployed: No Education: High School Diploma/GED Difficulty w/ Childcare or Family Care: No Living arrangements: assisted living Spiritual care concerns: No Meds Home Medications and Allergies Home Medications ?Medication ?Instructions ?Recorded ?Confirmed ?Type apixaban 5 mg tablet 5 mg feeding tube BID #60 tabs 10/17/24 04/20/25 Rx atorvastatin 40 mg tablet 40 mg feeding tube DAILY #30 tabs 10/17/24 04/20/25 Rx finasteride 5 mg tablet (Proscar) 5 mg feeding tube QAM #30 tabs 10/17/24 04/20/25 Rx metoprolol tartrate 50 mg tablet 50 mg feeding tube Q12HR #60 tabs 10/17/24 04/20/25 Rx mirtazapine 15 mg tablet (Remeron) 15 mg feeding tube HS #30 tabs 10/17/24 04/20/25 Rx Allergies Allergy/AdvReac Type Severity Reaction Status Date / Time No Known Allergies Allergy Mild Verified 08/24/24 10:55 Vital Signs Vital Signs - 24 hr 04/19/25 19:52 04/19/25 20:10 04/19/25 20:11 Temperature 98 F 100.2 F H Pulse Rate 68 70 Respiratory Rate 16 16 Blood Pressure 121/81 121/81 Pulse Oximetry 98 100 99 Oxygen Delivery Room Air Room Air 04/19/25 22:23 04/19/25 22:30 04/19/25 22:45 Temperature Pulse Rate 67 Respiratory Rate 11 L 19 13 Blood Pressure 124/66 136/75 162/79 H Pulse Oximetry 99 100 100 Oxygen Delivery 04/19/25 23:31 04/19/25 23:45 04/20/25 00:31 Temperature Pulse Rate 74 72 72 Respiratory Rate 18 17 15 Blood Pressure 143/63 H 149/84 H 137/95 H Pulse Oximetry 99 99 97 Oxygen Delivery 04/20/25 00:46 04/20/25 02:35 Temperature 97.5 F L Pulse Rate 73 63 Respiratory Rate 15 18 Blood Pressure 159/92 H Pulse Oximetry 98 100 Oxygen Delivery Exam Const: General: comfortable and no acute distress Other: A&O x3 HENMT: Mouth: Yes moist mucous membranes Eyes: Pupils: Equal, round and reactive pupils present Neck: Neck: supple Resp: Effort & Inspection: normal respiratory effort Auscultation: clear to auscultation bilaterally Cardio: Rate: regular rate Rhythm: regular rhythm GI: GI Palp: Yes Soft to palpation and No Tenderness to palpation present (GI) Extrem: General: no edema H&P: Results Labs Labs: Short CBC 04/19/25 Range/Units 20:18 WBC 12.9 H (4.5-10.0) K/mm3 Hgb 11.2 L (14.0-18.0) g/dL Hct 34.2 L (42.0-52.0) % Plt Count 286 (150-375) k/mm3 BMP 04/19/25 20:18 Sodium 142 Potassium 3.7 Chloride 105 Carbon Dioxide 26 BUN 28 H D Creatinine 1.74 H Glucose 131 H Calcium 9.3 Cardiac Enzymes 04/19/25 Range/Units 20:18 Total Creatine Kinase 32 L (55-170) U/L Liver Function 04/19/25 Range/Units 20:18 Total Bilirubin 0.8 (0.2-1.3) mg/dL AST 43 (17-59) U/L ALT 34 (6-50) U/L Alkaline Phosphatase 156 H (38-126) U/L Albumin 3.7 (3.5-5.1) g/dL Urine 04/19/25 Range/Units 22:14 Urine Color Dark yellow (Yellow) Urine Appearance Turbid H (Clear) Urine pH 5.5 (5.0-9.0) Ur Specific [place] > 1.045 H (1.001-1.035) Urine Protein 3+ H (Negative) mg/dL Urine Glucose (UA) Negative (Negative) mg/dL Assessment and Plan Assessment and plan (1) Leukocytosis: Code(s): D72.829 - Elevated white blood cell count, unspecified Status: Acute (2) Age-related physical debility: Code(s): R54 - Age-related physical debility Status: Acute Plan 70-year-old male with history of CKD, prior CVA with residual aphasia, dysphagia, status post G-tube neurogenic bladder with indwelling Bosch catheter, anxiety, yqg-ktltokc-wixxiwohi diabetes mellitus. Patient using has family members close by to check on him but they are preoccupied by a new in the family. The patient has not been seen by Tuesday. He was found down on 04/19/2025 brought to [facility]. Patient is able to recollect the events. He reports he usually ambulates independently. 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 He was walking with snacks in his hands and then he fell. He does not remember losing consci ousness. He was too weak to get up so he crawled to the living room and he laid there. He did not have his phone on him to call anyone. He denies any specifics symptoms ER evaluation hemodynamic stable. Hemoglobin 11.2, leukocytosis with WBC 12.9. Urine cloudy. UA contaminated and possibly infected. Given Rocephin. Patient did not have anyone at home to help him with crushing his antibiotics therefore patient admitted for observation to ensure safe discharge. ----- PT OT evaluations. Bosch catheter exchange. Continue Rocephin. Follow-up urine culture. Full code. Restart IRONER medications. Hospitalist [facility] Advance Care Plan I have confirmed that the patient's Advanced Care Plan is present, code status is documented, or surrogate decision maker is listed in patient medical record.: Yes Medication Reconciliation I have utilized all available resources to obtain, update and review the patients current medications (includes all prescriptions, OTC, herbals, cannabis, and nutritional supplements).: Yes
[2025-04-20 05:38] LABS: Basophils Percent Auto 0.3 % (0.2-1.2); Eosinophils Absolute Auto 0.1 K/mm3 (0-0.3); Hematocrit 28.7 % (42.0-52.0); Hemoglobin 9.2 g/dL (14.0-18.0); Immature Granulocyte Absolute 0.05 K/mm3 (0.00-0.031); Immature Granulocyte Percent A 0.5 % (0-0.5); Lymphocytes Percent Auto 29.1 % (18.3-44.2); Mean Corpuscular HGB Conc 32.1 g/dl (32-36); Mean Corpuscular Hemoglobin 30.3 pg (26-34); Mean Corpuscular Volume 94.4 fl (80-100); Mean Platelet Volume 9.1 fl (7.4-10.4); Monocytes Absolute Auto 1.1 K/mm3 (0.1-0.6); Monocytes Percent Auto 10.5 % (2.6-8.5); Neutrophils Absolute Auto 5.9 K/mm3 (1.3-6.7); Neutrophils Percent Auto 58.6 % (45.5-73.1); Platelet Count Result 228 k/mm3 (150-375); Red Blood Count 3.04 M/mm3 (4.6-6.20); Red Cell Distribution Width 13.9 % (11.5-14.5)
[2025-04-20 05:57] LABS: Alanine Aminotransferase 24 U/L (6-50); Albumin Level 2.8 g/dL (3.5-5.1); Alkaline Phosphatase 123 U/L (38-126); Anion Gap 7 mmol/L (4-12); Aspartate Amino Transferase 31 U/L (17-59); Bilirubin,Total 0.5 mg/dL (0.2-1.3); Blood Urea Nitrogen 28 mg/dL (9-20); Calcium 8.4 mg/dL (8.4-10.2); Carbon Dioxide 26 mmol/L (22-30); Chloride 106 mmol/L (98-107); Estimated CRCL calculation 41 ml/min; Estimated Glomerular Filt Rate 50; Glucose 97 mg/dL (65-110); Magnesium 1.8 mg/dL (1.6-2.3); Potassium 3.4 mmol/L (3.4-5.0); Sodium 139 mmol/L (137-145)
--- NOTE | 2025-04-20 08:30 | P.PNIM_ITS ---
Progress Note: A&P Assessment and Plan (1) Leukocytosis: Code(s): D72.829 - Elevated white blood cell count, unspecified Status: Acute Assessment and Plan: Hx of neurogenic bladder with indwelling Perdomo catheter (Pt states that he has an appt in x2 weeks for a perdomo change out) -ED: Leukocytosis with WBC 12.9. Urine cloudy. UA contaminated and possibly infected. Given Rocephin. Patient did not have anyone at home to help him with crushing his antibiotics therefore patient admitted for observation to ensure safe discharge. Pt's daughter just birthed a baby on 04/19. Per ED MD: -->New UA with reflex ordered 04/20 due to contamination. Obtained from new perdomo that was changed out in the ED. (2) Age-related physical debility: Code(s): R54 - Age-related physical debility Status: Acute Assessment and Plan: Fall and down for several days -Prior CVA with residual aphasia, dysphagia, status post G-tube neurogenic bladder with indwelling Perdomo catheter -Patient using has family members close by to check on him but they are preoccupied by a new in the family. -->Updated pt daughter, Nelly, on plan for admission for UTI and OT/PT eval/treat to make sure it is safe for pt to return home, she is agreeable with plan. Care coordination following. -He reports he usually ambulates independently. Pt reports that his whom he does not live with, tries to visit him daily too but she works nights. -Pt remains at orientation baseline of A&O x4 -Head CT WDL, CXR WLD, denies LOC -CPK unremarkable Plan PT/OT evaluations. Continue Rocephin. Follow-up urine culture. Full code. 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 Subjective Date/time seen: 04/20/25 1005 Interval history: 70-year-old male with history of CKD, prior CVA with residual aphasia, dysphagia, status post G-tube neurogenic bladder with indwelling Perdomo catheter, anxiety, [id number] diabetes mellitus. Patient using has family members close by to check on him but they are preoccupied by a new in the family. The patient has not been seen since Tuesday/ by family. He was found down on 04/19/2025 brought to [facility] by daughter's . Patient is able to recollect the events. He reports he usually ambulates independently. He was in the kitchen to grab some snacks and he was walking with snacks in his hands and then he fell landing on his L upper flank. He does not remember losing consciousness. He was too weak to get up so he crawled to the living room and he laid there. He did not have his phone on him to call anyone. He denies any specifics symptoms ER evaluation hemodynamic stable. Hemoglobin 11.2, leukocytosis with WBC 12.9. Urine cloudy. UA contaminated and possibly infected. Given Rocephin, will continue. Patient did not have anyone at home to help him with crushing his antibiotics therefore patient admitted for observation to ensure safe discharge. Pt states that he is feeling OK today, just sore all over, especially his L upper flank due to his fall and being on the ground for so long. Pt awake when I entered the room, we were able to speak on the phone with his daughter, Nelly, and update her on the POC. Pt currently eating breakfast, states that he has not eaten in days due to being on the ground. Plan to incorporate PT/OT for eval for safety going home. Review of Systems Review of Systems: All systems reviewed & are unremarkable except as noted in HPI and below (HPI) Exam Const: General: comfortable and no acute distress Other: A&O x4 HENMT: Mouth: Yes moist mucous membranes Eyes: Pupils: Equal, round and reactive pupils present Neck: Neck: supple and no JVD Carotids: no bruits Resp: Effort & Inspection: normal respiratory effort Auscultation: clear to auscultation bilaterally Cardio: Rate: regular rate Rhythm: regular rhythm GI: Inspection: non-distended Auscultation: normal bowel sounds Urinary Catheter: Urinary Catheter: patent and draining and urine clear Skin: General skin exam: normal color Other: 3x4cm abrasion to L upper flank, open to air No sacral breakdown observed, mild erythema to the L sacrum Neuro: Other: Very mild aphasia, A&O x4, moves all extremities Extrem: General: no edema Psych: Mental Status: mental status grossly normal Affect: normal affect Objective Data Vital Signs Vital Signs: Vital Signs - 24 hr 04/19/25 19:52 04/19/25 20:10 04/19/25 20:11 Temperature 98 F 100.2 F H Pulse Rate 68 70 Respiratory Rate 16 16 Blood Pressure 121/81 121/81 Pulse Oximetry 98 100 99 Oxygen Delivery Room Air Room Air 04/19/25 22:23 04/19/25 22:30 04/19/25 22:45 Temperature Pulse Rate 67 Respiratory Rate 11 L 19 13 Blood Pressure 124/66 136/75 162/79 H Pulse Oximetry 99 100 100 Oxygen Delivery 04/19/25 23:31 04/19/25 23:45 04/20/25 00:31 Temperature Pulse Rate 74 72 72 Respiratory Rate 18 17 15 Blood Pressure 143/63 H 149/84 H 137/95 H Pulse Oximetry 99 99 97 Oxygen Delivery 04/20/25 00:46 04/20/25 02:35 04/20/25 03:11 Temperature 97.5 F L Pulse Rate 73 63 Respiratory Rate 15 18 Blood Pressure 159/92 H Pulse Oximetry 98 100 Oxygen Delivery Room Air 04/20/25 06:00 Temperature 98.1 F Pulse Rate 56 L Respiratory Rate 20 Blood Pressure 148/96 H Pulse Oximetry 100 Oxygen Delivery Intake/Output Intake/Output: Intake & Output 04/17/25 04/18/25 04/19/25 04/20/25 23:59 23:59 23:59 23:59 Intake Total 1000 250 Output Total 600 Balance 1000 -350 Meds/Results Medications: Active Medications Generic Name Dose Route Start Last Admin Trade Name Freq PRN Reason Stop Dose Admin Acetaminophen 650 mg 04/19/25 23:16 Acetaminophen 325 Mg Tablet PO Q4H PRN Mild Pain (1-3) or Fever Apixaban 5 mg 04/20/25 09:00 Apixaban 5 Mg Tablet FEED TUBE Q12HR [facility] Atorvastatin Calcium 40 mg 04/20/25 09:00 Atorvastatin 40 Mg Tablet FEED TUBE DAILY [facility] Dextrose 12.5 gm 04/20/25 03:13 Dextrose 50% 25 Gm/50 Ml Syringe IV PUSH PRN PRN Hypoglycemia Protocol Finasteride 5 mg 04/20/25 09:00 Finasteride 5 Mg Tablet FEED TUBE QAM [facility] Glucose 15 gm 04/20/25 03:13 Glucose Oral Gel 15 Gm Of Glucse In 37.5 Gm Tube PO PRN PRN Hypoglycemia Protocol Ceftriaxone Sodium 1 gm in 50 mls @ 100 mls/hr 04/20/25 21:00 Rocephin 1 Gm/Ns 50 Ml IVPB Q24H [facility] Dextrose 1,000 mls @ 100 mls/hr 04/20/25 03:13 Dextrose 5% 1,000 Ml IVPB PRN PRN Hypoglycemia Protocol Insulin Aspart 2 - 5 units 04/20/25 08:00 Insulin Aspart (*Bkc) 100 Units/Ml SUB-Q TIDWM [facility] Protocol Insulin Aspart 1 - 2 units 04/20/25 21:00 Insulin Aspart (*Bkc) 100 Units/Ml SUB-Q HS [facility] Protocol Metoprolol Tartrate 50 mg 04/20/25 09:00 Metoprolol Tartrate 50 Mg Tab FEED TUBE Q12HR [facility] Mirtazapine 15 mg 04/20/25 21:00 Mirtazapine 15 Mg Tablet FEED TUBE HS [facility] Ondansetron HCl 4 mg 04/19/25 23:16 Ondansetron Inj 4 Mg/2 Ml Vial IV PUSH Q4H PRN Nausea Radiology Results: ITS Impressions Head CT 04/19/25 21:35 IMPRESSION: No acute intracranial findings. Chest X-Ray 04/19/25 21:52 IMPRESSION: No acute cardiopulmonary pathology Abdomen/Pelvis CT 04/19/25 21:58 IMPRESSION: 1. No evidence of appendicitis, diverticulitis or intestinal obstruction. 2. Slightly thickened sigmoid colon which may indicate colitis. Follow-up and if clinically warranted sigmoidoscopy is advised. 3. Thickened wall of the urinary bladder with small densities seen posteriorly which may represent tiny stones. Evaluation for cystitis advised. 4. Slight dilatation of the distal aorta. Labs Labs: Laboratory Results - last 24 hr 04/19/25 04/19/25 04/20/25 20:18 22:14 05:12 WBC 12.9 H RBC 3.72 L Hgb 11.2 L Hct 34.2 L MCV 91.9 MCH 30.1 MCHC 32.7 RDW 13.8 Plt Count 286 MPV 8.6 Immature Gran % (Auto) 0.8 H Neut % (Auto) 74.8 H Lymph % (Auto) 14.1 L [place] % (Auto) 9.9 H Eos % (Auto) 0.1 Baso % (Auto) 0.3 Lymph # (Auto) 1.82 [place] # (Auto) 1.3 H Eos # (Auto) 0.0 Baso # (Auto) 0.0 Abs Immat Gran (auto) 0.10 H Absolute Neuts (auto) 9.6 H Absolute Nucleated RBC 0.000 Nucleated RBC % 0.0 PT 14.5 INR 1.1 APTT 34.5 Sodium 142 139 Potassium 3.7 3.4 Chloride 105 106 Carbon Dioxide 26 26 Anion Gap 11 7 BUN 28 H D 28 H Creatinine 1.74 H 1.39 H Estim Creat Clear Calc 32 41 Estimated GFR 39 L 50 L Glucose 131 H 97 Calcium 9.3 8.4 Magnesium 1.8 Total Bilirubin 0.8 0.5 AST 43 31 ALT 34 24 Alkaline Phosphatase 156 H 123 Total Creatine Kinase 32 L Total Protein 8.0 6.0 L Albumin 3.7 2.8 L Urine Color Dark yellow Urine Appearance Turbid H Urine pH 5.5 Ur Specific [place] > 1.045 H Urine Protein 3+ H Urine Glucose (UA) Negative Urine Ketones Negative Ur Blood (Man) 3+ H Urine Nitrate Negative Urine Bilirubin Negative Urine Urobilinogen 1.0 Add Ur Microanalysis Reviewed Leukocyte Esterase Rfl 3+ H Urine RBC 51-100 H Urine WBC >100 H Urine WBC Clumps Present H Ur Squamous Epith Cells Many H Urine Bacteria 2+ H Urine Casts 3-5 04/20/25 05:13 WBC 10.0 RBC 3.04 L Hgb 9.2 L Hct 28.7 L MCV 94.4 MCH 30.3 MCHC 32.1 RDW 13.9 Plt Count 228 MPV 9.1 Immature Gran % (Auto) 0.5 Neut % (Auto) 58.6 Lymph % (Auto) 29.1 [place] % (Auto) 10.5 H Eos % (Auto) 1.0 Baso % (Auto) 0.3 Lymph # (Auto) 2.90 [place] # (Auto) 1.1 H Eos # (Auto) 0.1 Baso # (Auto) 0.0 Abs Immat Gran (auto) 0.05 H Absolute Neuts (auto) 5.9 Absolute Nucleated RBC 0.000 Nucleated RBC % 0.0 PT INR APTT Sodium Potassium Chloride Carbon Dioxide Anion Gap BUN Creatinine Estim Creat Clear Calc Estimated GFR Glucose Calcium Magnesium Total Bilirubin AST ALT Alkaline Phosphatase Total Creatine Kinase Total Protein Albumin Urine Color Urine Appearance Urine pH Ur Specific [place] Urine Protein Urine Glucose (UA) Urine Ketones Ur Blood (Man) Urine Nitrate Urine Bilirubin Urine Urobilinogen Add Ur Microanalysis Leukocyte Esterase Rfl Urine RBC Urine WBC Urine WBC Clumps Ur Squamous Epith Cells Urine Bacteria Urine Casts Quality VTE Prophylaxis VTE prophylaxis: pharmacologic ordered
[2025-04-20 08:55] LABS: Glucose Point of Care 82 mg/dl (65-105)
[2025-04-20] MEDS: METOPROLOL TARTRATE 50 MG TAB FEED TUBE ×2 (10:29→21:16)
[2025-04-20] MEDS: FINASTERIDE 5 MG TABLET FEED TUBE (10:29)
[2025-04-20] MEDS: ATORVASTATIN 40 MG TABLET FEED TUBE (10:30)
[2025-04-20] MEDS: APIXABAN 5 MG TABLET FEED TUBE ×2 (10:30→21:16)
--- NOTE | 2025-04-20 11:49 | PC.NURSE ---
RN and CROP QUANTITATIVE GENETICIST Maggi assessed patient together and called daughter, Shaniqua, and updated on care of plan and status of patient.
[2025-04-20] MEDS: MIRTAZAPINE 15 MG TABLET FEED TUBE (21:16)
[2025-04-21 06:00] VITALS: BP 172/66; PULSE 57; RESP 18; TEMP 36.4; O2SAT 99
--- NOTE | 2025-04-21 08:31 | P.PNIM_ITS ---
Progress Note: A&P Assessment and Plan (1) Leukocytosis: Code(s): D72.829 - Elevated white blood cell count, unspecified Status: Acute Assessment and Plan: Hx of neurogenic bladder with indwelling Perdomo catheter (Pt states that he has an appt in x2 weeks for a perdomo change out) -ED: Leukocytosis with WBC 12.9. Urine cloudy. UA contaminated and possibly infected. Given Rocephin. Patient did not have anyone at home to help him with crushing his antibiotics therefore patient admitted for observation to ensure safe discharge. Pt's daughter just birthed a baby on 04/19. -WBC down to WDL level today, continue to trend daily labs -->New UA with reflex ordered 04/20 due to contamination. Obtained from new perdomo that was changed out in the ED, pending results (2) Age-related physical debility: Code(s): R54 - Age-related physical debility Status: Acute Assessment and Plan: Fall and down for several days -Prior CVA with residual aphasia, dysphagia, status post G-tube neurogenic bladder with indwelling Perdomo catheter -Patient using has family members close by to check on him but they are preoccupied by a new in the family. -->Updated pt daughter, Nelly, on plan for admission for UTI and OT/PT eval/treat to make sure it is safe for pt to return home, she is agreeable with plan. Care coordination following. -He reports he usually ambulates independently. Pt reports that his whom he does not live with, tries to visit him daily too but she works nights. -Pt remains at orientation baseline of A&O x4 -Head CT WDL, CXR WLD, denies LOC -CPK unremarkable -Both PT/OT recommending SNF placement post D/C, will continue to work with them and update care coordination. Safer to keep pt in hospital if he is refusing SNF due to no family being available for him at home at this time. -Pt agreeable to be inpatient until can safely be D/C home. Plan PT/OT evaluations. Continue Rocephin. Follow-up urine culture. Full code. 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 Subjective Date/time seen: 04/21/25 1040 Interval history: 70-year-old male with history of CKD, prior CVA with residual aphasia, dysphagia, status post G-tube neurogenic bladder with indwelling Perdomo catheter, anxiety, [id number] diabetes mellitus. Patient using has family members close by to check on him but they are preoccupied by a new in the family. The patient has not been seen since Tuesday/ by family. He was found down on 04/19/2025 brought to [facility] by daughter's . Patient is able to recollect the events. He reports he usually ambulates independently. He was in the kitchen to grab some snacks and he was walking with snacks in his hands and then he fell landing on his L upper flank. He does not remember losing consciousness. He was too weak to get up so he crawled to the living room and he laid there. He did not have his phone on him to call anyone. He denies any specifics symptoms ER evaluation hemodynamic stable. Hemoglobin 11.2, leukocytosis with WBC 12.9. Urine cloudy. UA contaminated and possibly infected. Given Rocephin, will co ntinue. Patient did not have anyone at home to help him with crushing his antibiotics therefore patient admitted for observation to ensure safe discharge. 04/21: Pt states that he is feeling OK today, just continues to be sore all over, especially his L upper flank due to his fall and being on the ground for so long. Pt awake when I entered the room, had just finished some orange sherbert. Updated pt on the plan to continue to be inpatient as he is declining SNF and will need someone at his house to help care for him. Continue to incorporate PT/OT for eval for safety going home as well as IV abx. Pt agreeable with plan. Review of Systems Review of Systems: All systems reviewed & are unremarkable except as noted in HPI and below (HPI) Exam Const: General: comfortable and no acute distress Other: A&O x4 HENMT: Mouth: Yes moist mucous membranes Eyes: Pupils: Equal, round and reactive pupils present Neck: Neck: supple and no JVD Carotids: no bruits Resp: Effort & Inspection: normal respiratory effort Auscultation: clear to auscultation bilaterally Cardio: Rate: regular rate Rhythm: regular rhythm GI: Inspection: non-distended Auscultation: normal bowel sounds Urinary Catheter: Urinary Catheter: patent and draining and urine clear Skin: General skin exam: normal color Other: 3x4cm abrasion to L upper flank, open to air No sacral breakdown observed, mild erythema to the L sacrum Neuro: Cranial nerves: Yes Equal, round and reactive pupils present Other: Very mild aphasia, A&O x4, moves all extremities Extrem: General: no edema Psych: Mental Status: mental status grossly normal Affect: normal affect Objective Data Vital Signs Vital Signs: Vital Signs - 24 hr 04/20/25 10:19 04/20/25 10:29 04/20/25 12:56 Temperature Pulse Rate 73 Respiratory Rate Blood Pressure Pulse Oximetry Oxygen Delivery Room Air Room Air 04/20/25 13:31 04/20/25 14:00 04/20/25 21:15 Temperature 98.3 F Pulse Rate 69 Respiratory Rate 16 Blood Pressure 112/65 Pulse Oximetry 97 Oxygen Delivery Room Air Room Air 04/20/25 21:16 04/20/25 22:14 04/21/25 06:00 Temperature 97.9 F 97.5 F L Pulse Rate 58 L 69 57 L Respiratory Rate 18 18 Blood Pressure 144/74 H 172/66 H Pulse Oximetry 99 99 Oxygen Delivery Intake/Output Intake/Output: Intake & Output 04/18/25 04/19/25 04/20/25 04/21/25 23:59 23:59 23:59 23:59 Intake Total 1000 1570 600 Output Total 1350 1000 Balance 1000 220 -400 Meds/Results Medications: Active Medications Generic Name Dose Route Start Last Admin Trade Name Freq PRN Reason Stop Dose Admin Acetaminophen 650 mg 04/19/25 23:16 Acetaminophen 325 Mg Tablet PO Q4H PRN Mild Pain (1-3) or Fever Apixaban 5 mg 04/20/25 09:00 04/20/25 21:16 Apixaban 5 Mg Tablet FEED TUBE 5 mg Q12HR [facility] Administration Atorvastatin Calcium 40 mg 04/20/25 09:00 04/20/25 10:30 Atorvastatin 40 Mg Tablet FEED TUBE 40 mg DAILY [facility] Administration Dextrose 12.5 gm 04/20/25 03:13 Dextrose 50% 25 Gm/50 Ml Syringe IV PUSH PRN PRN Hypoglycemia Protocol Finasteride 5 mg 04/20/25 09:00 04/20/25 10:29 Finasteride 5 Mg Tablet FEED TUBE 5 mg QAM [facility] Administration Glucose 15 gm 04/20/25 03:13 Glucose Oral Gel 15 Gm Of Glucse In 37.5 Gm Tube PO PRN PRN Hypoglycemia Protocol Ceftriaxone Sodium 1 gm in 50 mls @ 100 mls/hr 04/20/25 21:00 04/20/25 21:50 Rocephin 1 Gm/Ns 50 Ml IVPB Infused Q24H [facility] Infusion Dextrose 1,000 mls @ 100 mls/hr 04/20/25 03:13 Dextrose 5% 1,000 Ml IVPB PRN PRN Hypoglycemia Protocol Insulin Aspart 1 - 2 units 04/20/25 21:00 04/21/25 00:22 Insulin Aspart (*Bkc) 100 Units/Ml SUB-Q Not Given HS [facility] Protocol Metoprolol Tartrate 50 mg 04/20/25 09:00 04/20/25 21:16 Metoprolol Tartrate 50 Mg Tab FEED TUBE 50 mg Q12HR [facility] Administration Mirtazapine 15 mg 04/20/25 21:00 04/20/25 21:16 Mirtazapine 15 Mg Tablet FEED TUBE 15 mg HS [facility] Administration Ondansetron HCl 4 mg 04/19/25 23:16 Ondansetron Inj 4 Mg/2 Ml Vial IV PUSH Q4H PRN Nausea Radiology Results: ITS Impressions Head CT 04/19/25 21:35 IMPRESSION: No acute intracranial findings. Chest X-Ray 04/19/25 21:52 IMPRESSION: No acute cardiopulmonary pathology Abdomen/Pelvis CT 04/19/25 21:58 IMPRESSION: 1. No evidence of appendicitis, diverticulitis or intestinal obstruction. 2. Slightly thickened sigmoid colon which may indicate colitis. Follow-up and if clinically warranted sigmoidoscopy is advised. 3. Thickened wall of the urinary bladder with small densities seen posteriorly which may represent tiny stones. Evaluation for cystitis advised. 4. Slight dilatation of the distal aorta. Labs Labs: Laboratory Results - last 24 hr 04/20/25 08:52 POC Capillary Glucose 82 Quality VTE Prophylaxis VTE prophylaxis: pharmacologic ordered
[2025-04-21 10:19] VITALS: PULSE 60
[2025-04-21] MEDS: METOPROLOL TARTRATE 50 MG TAB FEED TUBE ×2 (10:19→21:04)
[2025-04-21] MEDS: ATORVASTATIN 40 MG TABLET FEED TUBE (10:19)
[2025-04-21] MEDS: APIXABAN 5 MG TABLET FEED TUBE ×2 (10:20→21:04)
[2025-04-21] MEDS: FINASTERIDE 5 MG TABLET FEED TUBE (10:20)
[2025-04-21 14:00] VITALS: BP 113/62; PULSE 60; RESP 18; TEMP 36.6; O2SAT 99
[2025-04-21 19:41] VITALS: PULSE 62; O2SAT 98
[2025-04-21 20:04] VITALS: BP 129/70; PULSE 63; RESP 16; TEMP 36.6; O2SAT 100
[2025-04-21 21:04] VITALS: PULSE 63
[2025-04-21] MEDS: MIRTAZAPINE 15 MG TABLET FEED TUBE (21:04)
[2025-04-21 21:24] LABS: Glucose Point of Care 167 mg/dl (65-105)
[2025-04-22 05:53] VITALS: BP 157/81; PULSE 56; RESP 17; TEMP 36.3; O2SAT 98
[2025-04-22 09:17] VITALS: PULSE 78
[2025-04-22] MEDS: ATORVASTATIN 40 MG TABLET FEED TUBE (09:17)
[2025-04-22] MEDS: FINASTERIDE 5 MG TABLET FEED TUBE (09:17)
[2025-04-22] MEDS: METOPROLOL TARTRATE 50 MG TAB FEED TUBE ×2 (09:17→20:37)
[2025-04-22] MEDS: APIXABAN 5 MG TABLET FEED TUBE ×2 (09:17→20:37)
--- NOTE | 2025-04-22 12:04 | P.CDI_ITS ---
CDI Query Clarification Request Clarification request - UTI has been documented, chronic indwelling perdomo catheter documented. Please clarify if UTI is: * due to/associated with chronic indwelling perdomo catheter * not due to/associated with chronic indwelling perdomo catheter * unable to determine The medical chart reflects the followin-year-old male with a past medical history including prior stroke with residual aphasia and dysphagia requiring G-tube feeding. Patient presents to the emergency department from home as he was done by family members lying in the same spot a left him on Tuesday of this week. Patient normally gets checked on daily but his family members have been preoccupied and not able to visit him. Patient self is at his baseline mentation and nearly aphasic from his prior stroke but is cooperative, smiles and answers questions with mild thing words and head nodding as well as hand motions. He has no focal deficits with examination at this time. He denies any pain is abdomen or chest, no difficulties breathing. He does endorse that he has not been using his tube feeds at home. He does have what appears to be very milky discharge in his urinary catheter back. Wears a chronic indwelling Perdomo. No subjective fever chills. ER documented: Clinical Impression: Acute UTI, AMS (altered mental status), Mental status change resolved, Age- related physical debility H&P: 1) Leukocytosis: Code(s): D72.829 - Elevated white blood cell count, unspecified Status: Acute (2) Age-related physical debility: Code(s): R54 - Age-related physical debility Status: Acute ER evaluation hemodynamic stable. Hemoglobin 11.2, leukocytosis with WBC 12.9. Urine cloudy. UA contaminated and possibly infected. Given Rocephin. Patient did not have anyone at home to help him with crushing his antibiotics therefore patient admitted for observation to ensure safe discharge Urine Culture Preliminary 04/21/25-2157 Q Organism 1 Gram negative bacilli isolated IV abx ceftriaxone daily <Rosa Maria Adhikari RN - Last Filed: 04/22/25 12:11> Clarification request - UTI has been documented, chronic indwelling perdomo catheter documented. Please clarify if UTI is: * due to/associated with chronic indwelling perdomo catheter The medical chart reflects the followin-year-old male with a past medical history including prior stroke with residual aphasia and dysphagia requiring G-tube feeding. Patient presents to the emergency department from home as he was done by family members lying in the same spot a left him on Tuesday of this week. Patient normally gets checked on daily but his family members have been preoccupied and not able to visit him. Patient self is at his baseline mentation and nearly aphasic from his prior stroke but is cooperative, smiles and answers questions with mild thing words and head nodding as well as hand motions. He has no focal deficits with examination at this time. He denies any pain is abdomen or chest, no difficulties breathing. He does endorse that he has not been using his tube feeds at home. He does have what appears to be very milky discharge in his urinary catheter back. Wears a chronic indwelling Perdomo. No subjective fever chills. ER documented: Clinical Impression: Acute UTI, AMS (altered mental status), Mental status change resolved, Age- related physical debility H&P: 1) Leukocytosis: Code(s): D72.829 - Elevated white blood cell count, unspecified Status: Acute (2) Age-related physical debility: Code(s): R54 - Age-related physical debility Status: Acute ER evaluation hemodynamic stable. Hemoglobin 11.2, leukocytosis with WBC 12.9. Urine cloudy. UA contaminated and possibly infected. Given Rocephin. Patient did not have anyone at home to help him with crushing his antibiotics therefore patient admitted for observation to ensure safe discharge Urine Culture Preliminary 04/21/25-2158 Q Organism 1 Gram negative bacilli isolated IV abx ceftriaxone daily <Maggi Macias APRN - Last Filed: 04/22/25 13:05> Provider Comments * due to/associated with chronic indwelling perdomo catheter <Maggi Macias APRN - Last Filed: 04/22/25 13:05>
--- NOTE | 2025-04-22 13:53 | PCOTNOTE ---
Attempted to see pt. for occupational therapy treatment. Pt. refused to participate at this time. Pt. educated on benefits of participation, pt. declined. Nurse updated
[2025-04-22 14:00] VITALS: BP 137/76; PULSE 57; RESP 18; TEMP 36.4; O2SAT 100
--- NOTE | 2025-04-22 15:31 | PM.IMPN ---
Progress Note: A&P Assessment and Plan (1) Leukocytosis: Code(s): D72.829 - Elevated white blood cell count, unspecified Status: Acute Assessment and Plan: Hx of neurogenic bladder with indwelling Perdomo catheter (Pt states that he has an appt in x2 weeks for a perodmo change out) -ED: Leukocytosis with WBC 12.9. Urine cloudy. UA contaminated and possibly infected. Given Rocephin. Patient did not have anyone at home to help him with crushing his antibiotics therefore patient admitted for observation to ensure safe discharge. Pt's daughter just birthed a baby on 04/19. -WBC down to WDL level 04/20, continue to trend daily labs -->New UA with reflex ordered 04/20 due to contamination. Obtained from new perdomo that was changed out in the ED, pending results (2) Age-related physical debility: Code(s): R54 - Age-related physical debility Status: Acute Assessment and Plan: Fall and down for several days -Prior CVA with residual aphasia, dysphagia, status post G-tube neurogenic bladder with indwelling Perdomo catheter -Patient using has family members close by to check on him but they are preoccupied by a new in the family. -->Updated pt daughter, Nelly, on plan for admission for UTI and OT/PT eval/treat to make sure it is safe for pt to return home, she is agreeable with plan. Care coordination following. -He reports he usually ambulates independently. Pt reports that his whom he does not live with, tries to visit him daily too but she works nights. -Pt remains at orientation baseline of A&O x4 -Head CT WDL, CXR WLD, denies LOC -CPK unremarkable -Both PT/OT recommending SNF placement post D/C, will continue to work with them and update care coordination. Safer to keep pt in hospital if he is refusing SNF due to no family being available for him at home at this time. Per care coordination today, daughter Lynne is agreeable to rehab placement until both parties are more capable of pt care. I spoke to daughter as well as she also relays this information and would also like to tell her dad this is the plan. Will continue to follow. -Pt agreeable to be inpatient until can safely be D/C. Plan PT/OT evaluations. Continue Rocephin. Follow-up urine culture. Full code. Restarted [employer] medications. Subjective Date/time seen: 04/22/25 1258 Interval history: 70-year-old male with history of CKD, prior CVA with residual aphasia, dysphagia, status post G-tube neurogenic bladder with indwelling Perdomo catheter, anxiety, [id number] diabetes mellitus. Patient using has family members close by to check on him but they are preoccupied by a new in the family. The patient has not been seen since Tuesday/ by family. He was found down on 04/19/2025 brought to [facility] by daughter's . Patient is able to recollect the events. He reports he usually ambulates independently. He was in the kitchen to grab some snacks and he was walking with snacks in his hands and then he fell landing on his L upper flank. He does not remember losing consciousness. He was too weak to get up so he crawled to the living room and he laid there. He did not have his phone on him to call anyone. He denies any specifics symptoms ER evaluation hemodynamic stable. Hemoglobin 11.2, leukocytosis with WBC 12.9. Urine cloudy. UA contaminated and possibly infected. Given Rocephin, will continue. Patient did not have anyone at home to help him with crushing his antibiotics therefore patient admitted for observation to ensure safe discharge. 04/21: Pt states that he is feeling OK today, just continues to be sore all over, especially his L upper flank due to his fall and being on the ground for so long. Pt awake when I entered the room, had just finished some jasper sawyer. Updated pt on the plan to continue to be inpatient as he is declining SNF and will need someone at his house to help care for him. Continue to incorporate PT/OT for eval for safety going home as well as IV abx. Pt agreeable with plan. 04/22: Pt sitting up in chair when visited today. Pt states that he is feeling better. Worked with PT today, declined OT. Still awaiting for correct abx administration. Perdomo still working well. Per care coordination today, daughter Lynne is agreeable to rehab placement until both parties are more capable of pt care. I spoke to daughter as well as she also relays this information and would also like to tell her dad this is the plan. Will continue to follow. Review of Systems Review of Systems: All systems reviewed & are unremarkable except as noted in HPI and below (HPI) Exam Const: General: comfortable and no acute distress Other: A&O x4 HENMT: Mouth: Yes moist mucous membranes Eyes: Pupils: Equal, round and reactive pupils present Neck: Neck: supple and no JVD Carotids: no bruits Resp: Effort & Inspection: normal respiratory effort Auscultation: clear to auscultation bilaterally Cardio: Rate: regular rate Rhythm: regular rhythm GI: Inspection: non-distended Auscultation: normal bowel sounds Urinary Catheter: Urinary Catheter: patent and draining and urine clear Skin: General skin exam: normal color Other: 3x4cm abrasion to L upper flank, open to air, healing well No sacral breakdown observed, mild erythema to the L sacrum Neuro: Cranial nerves: Yes Equal, round and reactive pupils present Other: Very mild aphasia, A&O x4, moves all extremities Extrem: General: no edema Psych: Mental Status: mental status grossly normal Affect: normal affect Objective Data Vital Signs Vital Signs: Vital Signs - 24 hr 04/21/25 19:41 04/21/25 20:04 04/21/25 21:04 Temperature 97.9 F Pulse Rate 62 63 63 Respiratory Rate 16 Blood Pressure 129/70 Pulse Oximetry 98 100 Oxygen Delivery Room Air Fraction of Inspired Oxygen 21 04/22/25 05:53 04/22/25 08:00 04/22/25 09:17 Temperature 97.3 F L Pulse Rate 56 L 78 Respiratory Rate 17 Blood Pressure 157/81 H Pulse Oximetry 98 Oxygen Delivery Room Air Fraction of Inspired Oxygen 04/22/25 14:00 Temperature 97.5 F L Pulse Rate 57 L Respiratory Rate 18 Blood Pressure 137/76 Pulse Oximetry 100 Oxygen Delivery Fraction of Inspired Oxygen Intake/Output Intake/Output: Intake & Output 04/19/25 04/20/25 04/21/25 04/22/25 23:59 23:59 23:59 23:59 Intake Total 1000 1570 2640 680 Output Total 1350 1250 850 Balance 1459 319 8909 -170 Meds/Results Medications: Active Medications Generic Name Dose Route Start Last Admin Trade Name Freq PRN Reason Stop Dose Admin Acetaminophen 650 mg 04/19/25 23:16 Acetaminophen 325 Mg Tablet PO Q4H PRN Mild Pain (1-3) or Fever Apixaban 5 mg 04/20/25 09:00 04/22/25 09:17 Apixaban 5 Mg Tablet FEED TUBE 5 mg Q12HR BASSEM Administration Atorvastatin Calcium 40 mg 04/20/25 09:00 04/22/25 09:17 Atorvastatin 40 Mg Tablet FEED TUBE 40 mg DAILY BASSEM Administration Dextrose 12.5 gm 04/20/25 03:13 Dextrose 50% 25 Gm/50 Ml Syringe IV PUSH PRN PRN Hypoglycemia Protocol Finasteride 5 mg 04/20/25 09:00 04/22/25 09:17 Finasteride 5 Mg Tablet FEED TUBE 5 mg QAM BASSEM Administration Glucose 15 gm 04/20/25 03:13 Glucose Oral Gel 15 Gm Of Glucse In 37.5 Gm Tube PO PRN PRN Hypoglycemia Protocol Ceftriaxone Sodium 1 gm in 50 mls @ 100 mls/hr 04/20/25 21:00 04/21/25 21:35 Rocephin 1 Gm/Ns 50 Ml IVPB Infused Q24H BASSEM Infusion Dextrose 1,000 mls @ 100 mls/hr 04/20/25 03:13 Dextrose 5% 1,000 Ml IVPB PRN PRN Hypoglycemia Protocol Metoprolol Tartrate 50 mg 04/20/25 09:00 04/22/25 09:17 Metoprolol Tartrate 50 Mg Tab FEED TUBE 50 mg Q12HR BASSEM Administration Mirtazapine 15 mg 04/20/25 21:00 04/21/25 21:04 Mirtazapine 15 Mg Tablet FEED TUBE 15 mg HS BASSEM Administration Ondansetron HCl 4 mg 04/19/25 23:16 Ondansetron Inj 4 Mg/2 Ml Vial IV PUSH Q4H PRN Nausea Radiology Results: ITS Impressions Head CT 04/19/25 21:35 IMPRESSION: No acute intracranial findings. Chest X-Ray 04/19/25 21:52 IMPRESSION: No acute cardiopulmonary pathology Abdomen/Pelvis CT 04/19/25 21:58 IMPRESSION: 1. No evidence of appendicitis, diverticulitis or intestinal obstruction. 2. Slightly thickened sigmoid colon which may indicate colitis. Follow-up and if clinically warranted sigmoidoscopy is advised. 3. Thickened wall of the urinary bladder with small densities seen posteriorly which may represent tiny stones. Evaluation for cystitis advised. 4. Slight dilatation of the distal aorta. Labs Labs: Laboratory Results - last 24 hr 04/21/25 21:22 POC Capillary Glucose 167 H Quality VTE Prophylaxis VTE prophylaxis: pharmacologic ordered
[2025-04-22 19:55] VITALS: BP 151/75; PULSE 55; RESP 16; TEMP 36.6; O2SAT 100
[2025-04-22 20:37] VITALS: PULSE 55
[2025-04-22] MEDS: MIRTAZAPINE 15 MG TABLET FEED TUBE (20:37)
[2025-04-22 22:06] VITALS: O2SAT 100
[2025-04-23 05:31] VITALS: PULSE 60
[2025-04-23] MEDS: METOPROLOL TARTRATE 50 MG TAB FEED TUBE (05:31)
[2025-04-23 05:58] VITALS: BP 190/100; PULSE 61; RESP 16; TEMP 36.6; O2SAT 98
[2025-04-23 07:03] LABS: Basophils Percent Auto 0.3 % (0.2-1.2); Eosinophils Absolute Auto 0.4 K/mm3 (0-0.3); Eosinophils Percent Auto 4.5 % (0-4.4); Hematocrit 32.8 % (42.0-52.0); Hemoglobin 10.4 g/dL (14.0-18.0); Immature Granulocyte Absolute 0.08 K/mm3 (0.00-0.031); Immature Granulocyte Percent A 0.9 % (0-0.5); Lymphocytes Absolute Auto 3.15 K/mm3 (0.9-3.2); Lymphocytes Percent Auto 34.8 % (18.3-44.2); Mean Corpuscular HGB Conc 31.7 g/dl (32-36); Mean Corpuscular Volume 94.5 fl (80-100); Mean Platelet Volume 9.1 fl (7.4-10.4); Monocytes Absolute Auto 0.7 K/mm3 (0.1-0.6); Monocytes Percent Auto 8.2 % (2.6-8.5); Neutrophils Absolute Auto 4.7 K/mm3 (1.3-6.7); Neutrophils Percent Auto 51.3 % (45.5-73.1); Platelet Count Result 275 k/mm3 (150-375); Red Blood Count 3.47 M/mm3 (4.6-6.20); Red Cell Distribution Width 13.6 % (11.5-14.5); White Blood Count 9.1 K/mm3 (4.5-10.0)
[2025-04-23 07:14] LABS: Alanine Aminotransferase 30 U/L (6-50); Albumin Level 3.1 g/dL (3.5-5.1); Alkaline Phosphatase 134 U/L (38-126); Anion Gap 6 mmol/L (4-12); Aspartate Amino Transferase 40 U/L (17-59); Bilirubin,Total 0.4 mg/dL (0.2-1.3); Blood Urea Nitrogen 31 mg/dL (9-20); Calcium 8.3 mg/dL (8.4-10.2); Carbon Dioxide 28 mmol/L (22-30); Chloride 106 mmol/L (98-107); Estimated CRCL calculation 38 ml/min; Estimated Glomerular Filt Rate 46; Glucose 89 mg/dL (65-110); Potassium 3.3 mmol/L (3.4-5.0); Sodium 140 mmol/L (137-145)
[2025-04-23] MEDS: APIXABAN 5 MG TABLET FEED TUBE (08:48)
[2025-04-23] MEDS: ATORVASTATIN 40 MG TABLET FEED TUBE (08:48)
[2025-04-23] MEDS: FINASTERIDE 5 MG TABLET FEED TUBE (08:48)
--- NOTE | 2025-04-23 10:34 | P.PNIM_ITS ---
Progress Note: A&P Assessment and Plan (1) Leukocytosis: Code(s): D72.829 - Elevated white blood cell count, unspecified Status: Acute Assessment and Plan: Hx of neurogenic bladder with indwelling Perdomo catheter (Pt states that he has an appt in x2 weeks for a perdomo change out) -ED: Leukocytosis with WBC 12.9. Urine cloudy. UA contaminated and possibly infected. Given Rocephin. Patient did not have anyone at home to help him with crushing his antibiotics therefore patient admitted for observation to ensure safe discharge. Pt's daughter just birthed a baby on 04/19. -WBC down to WDL level 04/20, continue to trend daily labs -->New UA with reflex ordered 04/20 due to contamination. Obtained from new perdomo that was changed out in the ED, pending results -->UC: Enterobacter cloacae/asburia -->Switched from IV Ceftriaxone to oral Bactrim today, will start this evening x6 doses left (2) Age-related physical debility: Code(s): R54 - Age-related physical debility Status: Acute Assessment and Plan: Fall and down for several days -Prior CVA with residual aphasia, dysphagia, status post G-tube neurogenic bladder with indwelling Perdomo catheter -Patient using has family members close by to check on him but they are preoccupied by a new in the family. -->Updated pt daughter, Nelly, on plan for admission for UTI and OT/PT eval/treat to make sure it is safe for pt to return home, she is agreeable with plan. Care coordination following. -He reports he usually ambulates independently. Pt reports that his whom he does not live with, tries to visit him daily too but she works nights. -Pt remains at orientation baseline of A&O x4 -Head CT WDL, CXR WLD, denies LOC -CPK unremarkable -Both PT/OT recommending SNF placement post D/C, will continue to work with them and update care coordination. Safer to keep pt in hospital if he is refusing SNF due to no family being available for him at home at this time. Per care coordination today, daughter Lynne is agreeable to rehab placement until both parties are more capable of pt care. I spoke to daughter as well as she also relays this information and would also like to tell her dad this is the plan. Will continue to follow. -Pt agreeable to be inpatient until can safely be D/C. Plan PT/OT evaluations. Continue bactrim. Full code. Restarted [employer] medications. Subjective Date/time seen: 04/23/25 Interval history: 70-year-old male with history of CKD, prior CVA with residual aphasia, dysphagia, status post G-tube neurogenic bladder with indwelling Perdomo catheter, anxiety, [id number] diabetes mellitus. Patient using has family members close by to check on him but they are preoccupied by a new in the family. The patient has not been seen since Tuesday/ by family. He was found down on 04/19/2025 brought to [facility] by daughter's . Patient is able to recollect the events. He reports he usually ambulates independently. He was in the kitchen to grab some snacks and he was walking with snacks in his hands and then he fell landing on his L upper flank. He does not remember losing consciousness. He was too weak to get up so he crawled to the living room and he laid there. He did not have his phone on him to call anyone. He denies any specifics symptoms ER evaluation hemodynamic stable. Hemoglobin 11.2, leukocytosis with WBC 12.9. Urine cloudy. UA contaminated and possibly infected. Given Rocephin, will continue. Patient did not have anyone at home to help him with crushing his antibiotics therefore patient admitted for observation to ensure safe discharge. 04/21: Pt states that he is feeling OK today, just continues to be sore all over, especially his L upper flank due to his fall and being on the ground for so long. Pt awake when I entered the room, had just finished some orange sherbert. Updated pt on the plan to continue to be inpatient as he is declining SNF and will need someone at his house to help care for him. Continue to incorporate PT/OT for eval for safety going home as well as IV abx. Pt agreeable with plan. 04/22: Pt sitting up in chair when visited today. Pt states that he is feeling better. Worked with PT today, declined OT. Still awaiting for correct abx a dministration. Perdomo still working well. Per care coordination today, daughter Lynne is agreeable to rehab placement until both parties are more capable of pt care. I spoke to daughter as well as she also relays this information and would also like to tell her dad this is the plan. Will continue to follow. 04/23: Review of Systems Review of Systems: All systems reviewed & are unremarkable except as noted in HPI and below (HPI) Exam Const: General: comfortable and no acute distress Other: A&O x4 HENMT: Mouth: Yes moist mucous membranes Eyes: Pupils: Equal, round and reactive pupils present Neck: Neck: supple and no JVD Carotids: no bruits Resp: Effort & Inspection: normal respiratory effort Auscultation: clear to auscultation bilaterally Cardio: Rate: regular rate Rhythm: regular rhythm GI: Inspection: non-distended Auscultation: normal bowel sounds Urinary Catheter: Urinary Catheter: patent and draining and urine clear Skin: General skin exam: normal color Other: 3x4cm abrasion to L upper flank, open to air, healing well No sacral breakdown observed, mild erythema to the L sacrum Neuro: Cranial nerves: Yes Equal, round and reactive pupils present Other: Very mild aphasia, A&O x4, moves all extremities Extrem: General: no edema Psych: Mental Status: mental status grossly normal Affect: normal affect Objective Data Vital Signs Vital Signs: Vital Signs - 24 hr 04/22/25 14:00 04/22/25 19:55 04/22/25 20:37 Temperature 97.5 F L 97.9 F Pulse Rate 57 L 55 L 55 L Respiratory Rate 18 16 Blood Pressure 137/76 151/75 H Pulse Oximetry 100 100 Oxygen Delivery Fraction of Inspired Oxygen 04/22/25 22:06 04/23/25 05:31 04/23/25 05:58 Temperature 97.9 F Pulse Rate 60 61 Respiratory Rate 16 Blood Pressure 190/100 H Pulse Oximetry 100 98 Oxygen Delivery Room Air Fraction of Inspired Oxygen 21 Intake/Output Intake/Output: Intake & Output 04/20/25 04/21/25 04/22/25 04/23/25 23:59 23:59 23:59 23:59 Intake Total 1570 2640 1210 240 Output Total 1350 1250 1200 850 Balance 220 1390 10 -610 Meds/Results Medications: Active Medications Generic Name Dose Route Start Last Admin Trade Name Freq PRN Reason Stop Dose Admin Acetaminophen 650 mg 04/19/25 23:16 Acetaminophen 325 Mg Tablet PO Q4H PRN Mild Pain (1-3) or Fever Apixaban 5 mg 04/20/25 09:00 04/23/25 08:48 Apixaban 5 Mg Tablet FEED TUBE 5 mg Q12HR BASSEM Administration Atorvastatin Calcium 40 mg 04/20/25 09:00 04/23/25 08:48 Atorvastatin 40 Mg Tablet FEED TUBE 40 mg DAILY BASSEM Administration Dextrose 12.5 gm 04/20/25 03:13 Dextrose 50% 25 Gm/50 Ml Syringe IV PUSH PRN PRN Hypoglycemia Protocol Finasteride 5 mg 04/20/25 09:00 04/23/25 08:48 Finasteride 5 Mg Tablet FEED TUBE 5 mg QAM BASSEM Administration Glucose 15 gm 04/20/25 03:13 Glucose Oral Gel 15 Gm Of Glucse In 37.5 Gm Tube PO PRN PRN Hypoglycemia Protocol Dextrose 1,000 mls @ 100 mls/hr 04/20/25 03:13 Dextrose 5% 1,000 Ml IVPB PRN PRN Hypoglycemia Protocol Metoprolol Tartrate 50 mg 04/20/25 09:00 04/23/25 05:31 Metoprolol Tartrate 50 Mg Tab FEED TUBE 50 mg Q12HR BASSEM Administration Mirtazapine 15 mg 04/20/25 21:00 04/22/25 20:37 Mirtazapine 15 Mg Tablet FEED TUBE 15 mg HS BASSEM Administration Ondansetron HCl 4 mg 04/19/25 23:16 Ondansetron Inj 4 Mg/2 Ml Vial IV PUSH Q4H PRN Nausea Trimethoprim/Sulfamethoxazole 1 tab 04/23/25 21:00 Sulfamethoxazole/Trimethoprim 800/160 Mg Ds Tablet PO 04/26/25 09:01 Q12HR [facility] Radiology Results: ITS Impressions Head CT 04/19/25 21:35 IMPRESSION: No acute intracranial findings. Chest X-Ray 04/19/25 21:52 IMPRESSION: No acute cardiopulmonary pathology Abdomen/Pelvis CT 04/19/25 21:58 IMPRESSION: 1. No evidence of appendicitis, diverticulitis or intestinal obstruction. 2. Slightly thickened sigmoid colon which may indicate colitis. Follow-up and if clinically warranted sigmoidoscopy is advised. 3. Thickened wall of the urinary bladder with small densities seen posteriorly which may represent tiny stones. Evaluation for cystitis advised. 4. Slight dilatation of the distal aorta. Labs Labs: Laboratory Results - last 24 hr 04/23/25 06:04 WBC 9.1 RBC 3.47 L Hgb 10.4 L Hct 32.8 L MCV 94.5 MCH 30.0 MCHC 31.7 L RDW 13.6 Plt Count 275 MPV 9.1 Immature Gran % (Auto) 0.9 H Neut % (Auto) 51.3 Lymph % (Auto) 34.8 [place] % (Auto) 8.2 Eos % (Auto) 4.5 H Baso % (Auto) 0.3 Lymph # (Auto) 3.15 [place] # (Auto) 0.7 H Eos # (Auto) 0.4 H Baso # (Auto) 0.0 Abs Immat Gran (auto) 0.08 H Absolute Neuts (auto) 4.7 Absolute Nucleated RBC 0.000 Nucleated RBC % 0.0 Sodium 140 Potassium 3.3 L Chloride 106 Carbon Dioxide 28 Anion Gap 6 BUN 31 H Creatinine 1.51 H Estim Creat Clear Calc 38 Estimated GFR 46 L Glucose 89 Calcium 8.3 L Total Bilirubin 0.4 AST 40 ALT 30 Alkaline Phosphatase 134 H Total Protein 7.0 Albumin 3.1 L Quality VTE Prophylaxis VTE prophylaxis: pharmacologic ordered
[2025-04-23 11:07] VITALS: BP 115/65
--- NOTE | 2025-04-23 11:20 | PM.DS ---
DS: Admitting Diagnosis Discharge Date 04/23/2025 Admitting Diagnosis UTI, chronic indwelling perdomo catheter DS: Discharge Diagnosis Discharge Diagnosis (1) Leukocytosis: Code(s): D72.829 - Elevated white blood cell count, unspecified Status: Acute Assessment and Plan: Hx of neurogenic bladder with indwelling Perdomo catheter (Pt states that he has an appt in x2 weeks for a perdomo change out) -ED: Leukocytosis with WBC 12.9. Urine cloudy. UA contaminated and possibly infected. Given Rocephin. Patient did not have anyone at home to help him with crushing his antibiotics therefore patient admitted for observation to ensure safe discharge. Pt's daughter just birthed a baby on 04/19. -WBC down to WDL level 04/20, continue to trend daily labs -->New UA with reflex ordered 04/20 due to contamination. Obtained from new perdmoo that was changed out in the ED, pending results -->UC: Enterobacter cloacae/asburia -->Switched from IV Ceftriaxone to oral Bactrim today, will start this evening upon D/C (2) Age-related physical debility: Code(s): R54 - Age-related physical debility Status: Acute Assessment and Plan: Fall and down for several days -Prior CVA with residual aphasia, dysphagia, status post G-tube neurogenic bladder with indwelling Perdomo catheter -Patient using has family members close by to check on him but they are preoccupied by a new in the family. -->Updated pt daughter, Nelly, on plan for admission for UTI and OT/PT eval/treat to make sure it is safe for pt to return home, she is agreeable with plan. Care coordination following. -He reports he usually ambulates independently. Pt reports that his whom he does not live with, tries to visit him daily too but she works nights. -Pt remains at orientation baseline of A&O x4 -Head CT WDL, CXR WLD, denies LOC -CPK unremarkable -Both PT/OT recommending SNF placement post D/C, will continue to work with them and update care coordination. Safer to keep pt in hospital if he is refusing SNF due to no family being available for him at home at this time. Per care coordination today, daughter Lynne is agreeable to rehab placement until both parties are more capable of pt care. I spoke to daughter as well as she also relays this information and would also like to tell her dad this is the plan. Will continue to follow. -Pt agreeable to be inpatient until can safely be D/C. -Pt to be discharged to [facility] today as pt was accepted, Lynne, daughter informed today. Plan Discharge to [facility] today with oral abx for UTI DS: Summary Hospital Course Reason for hospitalization: UTI, chronic indwelling perdomo catheter Hospital Course: 70-year-old male with history of CKD, prior CVA with residual aphasia, dysphagia, status post G-tube neurogenic bladder with indwelling Perdomo catheter, anxiety, [id number] diabetes mellitus. Patient using has family members close by to check on him but they are preoccupied by a new in the family. The patient has not been seen since Tuesday/ by family. He was found down on 04/19/2025 brought to [facility] by daughter's . Patient is able to recollect the events. He reports he usually ambulates independently. He was in the kitchen to grab some snacks and he was walking with snacks in his hands and then he fell landing on his L upper flank. He does not remember losing consciousness. He was too weak to get up so he crawled to the living room and he laid there. He did not have his phone on him to call anyone. He denies any specifics symptoms ER evaluation hemodynamic stable. Hemoglobin 11.2, leukocytosis with WBC 12.9. Urine cloudy. UA contaminated and possibly infected. Given Rocephin, will continue. Patient did not have anyone at home to help him with crushing his antibiotics therefore patient admitted for observation to ensure safe discharge. 04/21: Pt states that he is feeling OK today, just continues to be sore all over, especially his L upper flank due to his fall and being on the ground for so long. Pt awake when I entered the room, had just finished some jasper sawyer. Updated pt on the plan to continue to be inpatient as he is declining SNF and will need someone at his house to help care for him. Continue to incorporate PT/OT for eval for safety going home as well as IV abx. Pt agreeable with plan. 04/22: Pt sitting up in chair when visited today. Pt states that he is feeling better. Worked with PT today, declined OT. Still awaiting UC for correct abx administration. Perdomo still working well. Per care coordination today, daughter Lynne is agreeable to rehab placement until both parties are more capable of pt care. I spoke to daughter as well as she also relays this information and would also like to tell her dad this is the plan. Will continue to follow. 04/23: Pt slightly grumpy today, may be due to going to a SNF when he wanted to go home. States that he is feeling better overall but is tired. Plan to D/C to [facility] today with oral abx x3 more days. Status at Discharge Cognitive/behavioral status at discharge: Stable Functional status at discharge: uses cane/walker Overall status at discharge: patient is progressing back to baseline Time Spent with Patient Time attestation: Total time spent providing and/or coordinating discharge services: Exam Const: General: comfortable and no acute distress Other: A&O x4 HENMT: Mouth: Yes moist mucous membranes Eyes: Pupils: Equal, round and reactive pupils present Neck: Neck: supple and no JVD Resp: Effort & Inspection: normal respiratory effort Auscultation: clear to auscultation bilaterally Cardio: Rate: regular rate Rhythm: regular rhythm GI: Inspection: non-distended Auscultation: normal bowel sounds Urinary Catheter: Urinary Catheter: patent and draining and urine clear Skin: General skin exam: normal color Other: 3x4cm abrasion to L upper flank, open to air, healing well No sacral breakdown observed, mild erythema to the L sacrum Neuro: Cranial nerves: Yes Equal, round and reactive pupils present Other: Very mild aphasia, A&O x4, moves all extremities Extrem: General: no edema Psych: Mental Status: mental status grossly normal Affect: normal affect DS: Data Data Completed and Pending Labs on day of discharge: Labs from last 24 hours 04/23/25 06:04 WBC 9.1 RBC 3.47 L Hgb 10.4 L Hct 32.8 L MCV 94.5 MCH 30.0 MCHC 31.7 L RDW 13.6 Plt Count 275 MPV 9.1 Immature Gran % (Auto) 0.9 H Neut % (Auto) 51.3 Lymph % (Auto) 34.8 Wallace % (Auto) 8.2 Eos % (Auto) 4.5 H Baso % (Auto) 0.3 Lymph # (Auto) 3.15 Wallace # (Auto) 0.7 H Eos # (Auto) 0.4 H Baso # (Auto) 0.0 Abs Immat Gran (auto) 0.08 H Absolute Neuts (auto) 4.7 Absolute Nucleated RBC 0.000 Nucleated RBC % 0.0 Sodium 140 Potassium 3.3 L Chloride 106 Carbon Dioxide 28 Anion Gap 6 BUN 31 H Creatinine 1.51 H Estim Creat Clear Calc 38 Estimated GFR 46 L Glucose 89 Calcium 8.3 L Total Bilirubin 0.4 AST 40 ALT 30 Alkaline Phosphatase 134 H Total Protein 7.0 Albumin 3.1 L Discharge Plan Discharge Attending physician on discharge: Maggi Macias Discharging Clinician: Maggi Macias Anticipated Discharge Date/Time: 04/23/25 13:00 Patient Disposition: Inpatient Rehab Facility Activity: may shower and as tolerated Diet: renal Discharge Instructions: 1. I am writing you for a prescription for antibiotics to be taken for your urinary tract infection (UTI), the name of it is Bactrim. You will take this medication starting this evening, and continue taking it twice daily (once in the AM and once in the PM) until all of the pills are gone. 2. Continue to follow-up with your primary care team as well as the team who changes out your urinary catheter. Continue to check your blood pressure and blood sugar at home if applicable. Keep your scheduled appts with your primary care provider and any specialist that you may see. Return to the emergency department if you develop sudden shortness of breath, chest pain, a fever of greater than 101.5, or nausea, vomiting, abd pain, or diarrhea that does not go away. Follow-up with your primary care provider within 1-2 weeks, they will want to be updated on your inpatient stay in the hospital. Thank you for [facility] for your healthcare needs. Patient Instructions: Sulfamethoxazole/Trimethoprim (By mouth), Apixaban (By mouth), Catheter-associated Urinary Tract Infection (GEN) Patient Language: Turkmen Stand Alone Forms: General Discharge Information Follow-up/Referrals: Ronnell Zhang MD [Primary Care Provider] - 2 Weeks Discharge Medications: New sulfamethoxazole-trimethoprim 800-160 mg Tablet 1 tab PO Q12HR Qty: 6 0RF Continued atorvastatin 40 mg tablet 40 mg feeding tube DAILY Qty: 30 0RF metoprolol tartrate 50 mg tablet 50 mg feeding tube Q12HR Qty: 60 0RF mirtazapine [Remeron] 15 mg tablet 15 mg feeding tube HS Qty: 30 0RF finasteride [Proscar] 5 mg tablet 5 mg feeding tube QAM Qty: 30 0RF apixaban 5 mg Tablet 5 mg feeding tube BID Qty: 60 0RF Date of admission: 04/20/25 07:37 Primary Care Provider: Ronnell Zhang Admitting Provider: Yenifer Walters Attending physician on admission: Maggi Macias Condition: Stable Quality VTE Prophylaxis VTE prophylaxis: pharmacologic ordered Hospitalist MIPS Heart Failure (Exclusion) Patient has history of Heart Transplant or Left Ventricular Assistive Device?: No IF YES, STOP HERE Heart Failure (Qualifier) Patient has current or prior documentation of LVEF less than or equal to 40%, or mod/servere depressed LVSF?: No IF NO, STOP HERE
[2025-04-23] MEDS: SULFAMETHOXAZOLE/TRIMETHOPRIM 800/160 MG DS TABLET 1 TAB PO (11:57)
== END 2025-04-23 15:50 | DRG 699 ==
LOC: ANHED 20:36 → ANH3MED 04-20 00:07
PROVIDERS: Admitting Provider General Practice; Emergency Provider Student in an Organized Health Care Education/Training Program; PCP Emergency Medicine
DX: T83.511A Infection and inflammatory reaction due to indwelling urethral catheter, initial encounter (principal); I13.0 Hypertensive heart and chronic kidney disease with heart failure and stage 1 through stage 4 chronic kidney disease, or unspecified chronic kidney disease; I50.42 Chronic combined systolic (congestive) and diastolic (congestive) heart failure; N39.0 Urinary tract infection, site not specified; E11.22 Type 2 diabetes mellitus with diabetic chronic kidney disease; N18.9 Chronic kidney disease, unspecified; I69.320 Aphasia following cerebral infarction; I69.391 Dysphagia following cerebral infarction; D64.9 Anemia, unspecified; I48.0 Paroxysmal atrial fibrillation; F41.9 Anxiety disorder, unspecified; M19.90 Unspecified osteoarthritis, unspecified site; F17.210 Nicotine dependence, cigarettes, uncomplicated; E78.5 Hyperlipidemia, unspecified; N31.9 Neuromuscular dysfunction of bladder, unspecified; N13.9 Obstructive and reflux uropathy, unspecified; N40.0 Benign prostatic hyperplasia without lower urinary tract symptoms; D72.829 Elevated white blood cell count, unspecified; R54 Age-related physical debility; Z90.49 Acquired absence of other specified parts of digestive tract; Z93.1 Gastrostomy status
CPT/HCPCS: 36415; 70450; 71045; 74177; 80053; 81001; 82550; 82948; 83735; 85025; 85610; 85730; 87086; 87186; 93005; 96361; 96365; 96375; 97110; 97161; 97165; 97530; 99285; A9270; G0378; J0696; J7120; Q9967

== ENCOUNTER 2025-05-15 10:32 | Inpatient (IN) | payer MEDICARE, OTHER, SELFPAY ==
--- NOTE | ~2025-05-15 | XR_ITS ---
Portable chest x-ray Comparison: 05/15/2025 Clinical History: Pneumonia Findings: Lungs are clear, without focal consolidation or pleural effusion. Cardiomediastinal silho uette is stable. Bones and soft tissues are unremarkable. Impression: Clear lungs. Reviewed, dictated and finalized at location . Impression: Clear lungs.
--- NOTE | ~2025-05-15 | XR_ITS ---
XR chest 2V Ordering provider: Ashley Rainey PA-C History: 70 years Male with . leukocytosis . Comparison: April 19, 2025 FINDINGS: MEDIASTINUM: The cardiac silhouette is not enlarged. LUNGS: No effusions or pneumothorax. Opacification in the left lung base suggestive of atelectasis versus pneumonia. Prominent markings in the right lung base. OTHER: No free air under the diaphragm. IMPRESSION: Left basilar atelectasis versus pneumonia. Reviewed, dictated and finalized at location A.
--- NOTE | ~2025-05-15 | US_ITS ---
EXAMINATION: US renal BI DATE: 05/15/2025 13:53 INDICATION: Acute kidney failure TECHNIQUE: Multiple ultrasound grayscale images of the kidneys were obtained. COMPARISON: CT dated 04/19/2025 and ultrasound dated 08/27/2024 FINDINGS: The right kidney measures 11.2 x 5.5 x 4.4 cm. The left kidney measures 11.0 x 5.2 x 3.8 cm. The kidn eys demonstrate normal echogenicity. There is no hydronephrosis in either kidney. No stones identifi ed. The bladder is partially decompressed with a Bosch catheter which limits evaluation. There does a ppear to be some bladder wall thickening with an irregular mucosal contour. IMPRESSION: 1. Normal kidneys without hydronephrosis. 2. Mild thickening of the bladder wall with irregular mucosal surface, consistent which is somewhat l imited by partially decompressed state. Differential would include cystitis either acute or chronic w hich is suggested by the appearance on prior CT, sequela of chronic outlet obstruction or malignancy. Correlate with urinalysis and clinical history. Consider cystoscopy for further evaluation as clinic ally indicated. Reviewed, dictated and finalized at location A. IMPRESSION: 1. Normal kidneys without hydronephrosis. 2. Mild thickening of the bladder wall with irregular mucosal surface, consiste nt which is somewhat limited by partially decompressed state. Differential woul d include cystitis either acute or chronic which is suggested by the appearance on prior CT, sequela of chronic outlet obstruction or malignancy. Correlate wi th urinalysis and clinical history. Consider cystoscopy for further evaluation as clinically indicated.
[2025-05-15 10:36] VITALS: BP 138/68; PULSE 67; RESP 17; TEMP 36.4; O2SAT 100
--- NOTE | 2025-05-15 10:38 | ECG_ITS ---
Test Date: 2025-05-15 11:17:00 Measurements Intervals [place] Rate: 62 P: 8 IA: 205 QRS: -66 QRSD: 121 T: 134 QT: 441 QTc: 448 Interpretive Statements SINUS RHYTHM BORDERLINE AV CONDUCTION DELAY LEFT ANTERIOR FASCICULAR BLOCK LEFT VENTRICULAR HYPERTROPHY AND ST-T CHANGE CANNOT R/O SEPTAL INFARCT, AGE INDETERMINATE BASELINE ARTIFACT- I, II, III, AVR, AVL, AVF, V1-V6 ABNORMAL ECG Compared to ECG 04/19/2025 22:50:04 NO SIGNIFICANT CHANGE Electronically Signed On 05-15-2025 12:37:23 CDT by Gokul Ruff D.O.
[2025-05-15 11:14] LABS: Hematocrit 27.5 % (42.0-52.0); Hemoglobin 8.8 g/dL (14.0-18.0); Immature Granulocyte Percent A 1.4 % (0-0.5); Lymphocytes Absolute Auto 1.93 K/mm3 (0.9-3.2); Mean Corpuscular HGB Conc 32.0 g/dl (32-36); Mean Corpuscular Hemoglobin 29.7 pg (26-34); Mean Corpuscular Volume 92.9 fl (80-100); Nucleated Red Blood Cells Absolute Auto 0.000 K/mm3 (0.0-0.012); Nucleated Red Blood Cells Perc 0.0 % (0.0-0.2); Platelet Count Result 323 k/mm3 (150-375); Red Blood Count 2.96 M/mm3 (4.6-6.20); White Blood Count 13.0 K/mm3 (4.5-10.0)
--- NOTE | 2025-05-15 11:18 | ED.RECABL ---
HPI - Recheck/Abnormal Lab/Rx General Chief Complaint: Recheck/Abnormal Lab/Rx <Ashley Rainey PA-C - Last Filed: 05/15/25 14:02> Stated Complaint: ABNORMAL LABS <Ashley Rainey PA-C - Last Filed: 05/15/25 14:02> Time Seen by Provider: 05/15/25 10:35 <Ashley Rainey PA-C - Last Filed: 05/15/25 14:02> Source: patient <Ashley Rainey PA-C - Last Filed: 05/15/25 14:02> Mode of arrival: EMS <GILLES Villavicencio Last Filed: 05/15/25 14:02> Limitations: other (poor historian) <Ashley Rainey PA-C - Last Filed: 05/15/25 14:02> History of Present Illness HPI narrative: This is a 70-year-old male that presents to the emergency department for abnormal outpatient blood work. He is unsure what is abnormal. He does endorse a cough. Otherwise has no focal complaints. Reportedly from the facility he had an elevated white blood cell count and evidence of kidney injury. Sent in for further evaluation <Ashley Rainey PA-C - Last Filed: 05/15/25 14:02> Related Data Home Medications: Home Medications ?Medication ?Instructions ?Recorded ?Confirmed ?Last Taken ?Type apixaban 5 mg tablet 5 mg PO BID 05/15/25 05/15/25 05/15/25 08:25 History atorvastatin 40 mg tablet 40 mg PO DAILY 05/15/25 05/15/25 05/15/25 08:25 History finasteride 5 mg tablet (Proscar) 5 mg PO QAM 05/15/25 05/15/25 05/15/25 08:25 History metoprolol tartrate 50 mg tablet 50 mg PO Q12HR 05/15/25 05/15/25 05/15/25 08:25 History <Ashley Rainey PA-C - Last Filed: 05/15/25 14:02> Allergies/Adverse Reactions: Allergies Allergy/AdvReac Type Severity Reaction Status Date / Time No Known Allergies Allergy Mild Verified 05/15/25 14:10 <Ashley Raieny PA-C - Last Filed: 05/15/25 14:02> Review of Systems Review of Systems: All systems reviewed & are unremarkable except as noted in HPI and below <Ashley Rainey PA-C - Last Filed: 05/15/25 14:02> [facility] Past Medical History Medical History: Medical History Chronic anemia PAF (paroxysmal atrial fibrillation) Combined systolic and diastolic congestive heart failure CKD (chronic kidney disease) Anxiety Arthritis TIA (transient ischemic attack) CVA (cerebral vascular accident) Per MRI on 03/20/2024, old infarcts in the bilateral basal ganglia Indwelling Bosch catheter present Non-insulin dependent diabetes mellitus Normocytic anemia Hyperlipidemia Neurogenic bladder Obstructive uropathy BPH loc w urin obs/LUTS Hypertension <GILLES Villavicencio Last Filed: 05/15/25 14:02> Surgical History Surgical History: Surgical History History of appendectomy <Ashley Rainey PA-C - Last Filed: 05/15/25 14:02> Family History Family History: Family History Father Cerebrovascular accident Mother Alcohol abuse Alcohol abuse by patient's mother Heart attack Hypertension <Ashley Rainey PA-C - Last Filed: 05/15/25 14:02> Social History Social History: Social History Social History: Has a daughter Smoking packs per day: 1 Smoking cigarettes per day: 20.0 Years smoked: 20 Smoking pack-years: 20.00 Smoking status: Current every day smoker Second hand tobacco smoke exposure: Yes Additional smoking assessment comments: pt states he started smoking when he got at the age of 39 Alcohol intake: former Drinks per week: 1 Alcohol use details: couple times a week (happy hour) Substance use: current Substance use type: marijuana Other substance usage details: smokes marijuana when friends bring it to him Last use: 04/04/25 Do You Feel Safe in your Home?: Yes Lack of Transportation: No Lack of Food: Never True Current Housing: I Have Housing Concerned About Future Housing: No Difficulty Paying Gas/Electric Bills: No Difficulty Paying for Meds: No Currently Unemployed: No Education: High School Diploma/GED Difficulty w/ Childcare or Family Care: No Living arrangements: assisted living Spiritual care concerns: No <Ashley Rainey PA-C - Last Filed: 05/15/25 14:02> Exam Narrative: GENERAL: Elderly, well-nourished, and in no acute distress. HEAD: Normocephalic, atraumatic. EYES: EOMI. ENT: Nares clear, no rhinorrhea or epistaxis. Mucous membranes moist. Oropharynx without tonsillar hypertrophy exudate or other lesions. Bilateral TMs pearly patel non-bulging NECK: Supple. No adenopathy or masses. CHEST: Clear to auscultation. No respiratory distress. No wheezes rales or rhonchi HEART: Regular rate and rhythm. No murmur heard. Normal peripheral pulses. ABDOMEN: Soft, nontender, nondistended, normal active bowel sounds. G tube present MALE GENITAL: Bosch catheter in place EXTREMITIES: Normal range of motion. No edema. SKIN: Warm, dry, no rash. NEURO: No focal deficits. Alert and oriented x3. PSYCH: Normal mood and affect <Ashley Rainey PA-C - Last Filed: 05/15/25 14:02> Course Course Emergency Course: patient updated on his workup and need for admission <Ashley Rainey PA-C - Last Filed: 05/15/25 14:02> HVAC OPERATIONS TECHNICIAN/PA Physician Supervision This visit was performed by both a physician and an APC. I performed all aspects of the MDM as documented. <Joel Tiwari MD - Last Filed: 05/15/25 19:08> Consultations Consultation #1: Spoke with hospitalist about patient and workup who accepts admission. Will place consult for nephrology <Ashley Rainey PA-C - Last Filed: 05/15/25 14:02> Date: 05/15/25 <Ashley Rainey PA-C - Last Filed: 05/15/25 14:02> Vital Signs Vital signs: Vital Signs Temperature 97.6 F 05/15/25 10:36 Pulse Rate 67 05/15/25 10:36 Respiratory Rate 17 05/15/25 10:36 Blood Pressure 138/68 05/15/25 10:36 Pulse Oximetry 100 05/15/25 10:36 Oxygen Delivery Room Air 05/15/25 10:36 Temperature 97.0 F L 05/15/25 14:30 Pulse Rate 65 05/15/25 14:30 Respiratory Rate 16 05/15/25 14:30 Blood Pressure 145/67 H 05/15/25 14:30 Pulse Oximetry 100 05/15/25 14:30 Oxygen Delivery Room Air 05/15/25 17:43 <Ashley Rainey PA-C - Last Filed: 05/15/25 14:02> Vital Signs Temperature 97.6 F 05/15/25 10:36 Pulse Rate 67 05/15/25 10:36 Respiratory Rate 17 05/15/25 10:36 Blood Pressure 138/68 05/15/25 10:36 Pulse Oximetry 100 05/15/25 10:36 Oxygen Delivery Room Air 05/15/25 10:36 Temperature 97.0 F L 05/15/25 14:30 Pulse Rate 65 05/15/25 14:30 Respiratory Rate 16 05/15/25 14:30 Blood Pressure 145/67 H 05/15/25 14:30 Pulse Oximetry 100 05/15/25 14:30 Oxygen Delivery Room Air 05/15/25 17:43 <Joel Tiwari MD - Last Filed: 05/15/25 19:08> MDM - Recheck/Abnormal Lab/Rx MDM Narrative Medical decision making narrative: Patient presents the emergency department for abnormal outpatient blood work. He is afebrile and nontoxic appearing. His vitals are stable. CBC with leukocytosis to 13. Shows normocytic anemia hemoglobin of 8.8. Metabolic panel with evidence of acute renal failure. Creatinine of 6.24, BUN of 89. Bicarb of 21, anion gap 15. Urine with possible evidence of infection, this was sent for culture. Blood cultures drawn, patient started on IV antibiotics. Chest x-ray showing atelectasis versus pneumonia. Patient does have a coarse sounding cough. patient updated on his workup and need for admission. Spoke with hospitalist about patient and workup who accepts admission. Will place consult for Nephrology <Ashley Rainey PA-C - Last Filed: 05/15/25 14:02> Differential Diagnosis Differential diagnosis: Likely other (Dehydration, electrolyte derangement, UTI, pneumonia, acute kidney failure) <Ashley Rainey PA-C - Last Filed: 05/15/25 14:02> Lab Data Attestation: I reviewed the patient's lab results. <Ashley Rainey PA-C - Last Filed: 05/15/25 14:02> Result diagrams: 05/15/25 11:00 05/15/25 11:00 <Ashley Rainey PA-C - Last Filed: 05/15/25 14:02> Labs: Lab Results 05/15/25 05/15/25 05/15/25 Range/Units 10:59 11:00 12:39 WBC 13.0 H (4.5-10.0) K/mm3 RBC 2.96 L (4.6-6.20) M/mm3 Hgb 8.8 L (14.0-18.0) g/dL Hct 27.5 L (42.0-52.0) % MCV 92.9 (80-100) fl MCH 29.7 (26-34) pg MCHC 32.0 (32-36) g/dl RDW 13.9 (11.5-14.5) % Plt Count 323 (150-375) k/mm3 MPV 8.4 (7.4-10.4) fl Immature Gran % (Auto) 1.4 H (0-0.5) % Neut % (Auto) 74.3 H (45.5-73.1) % Lymph % (Auto) 14.9 L (18.3-44.2) % Tucker % (Auto) 5.1 (2.6-8.5) % Eos % (Auto) 4.1 (0-4.4) % Baso % (Auto) 0.2 (0.2-1.2) % Lymph # (Auto) 1.93 (0.9-3.2) K/mm3 Tucker # (Auto) 0.7 H (0.1-0.6) K/mm3 Eos # (Auto) 0.5 H (0-0.3) K/mm3 Baso # (Auto) 0.0 (0.0-0.1) K/mm3 Abs Immat Gran (auto) 0.18 H (0.00-0.031) K/mm3 Absolute Neuts (auto) 9.7 H (1.3-6.7) K/mm3 Absolute Nucleated RBC 0.000 (0.0-0.012) K/mm3 Nucleated RBC % 0.0 (0.0-0.2) % PT 17.0 H (11.1-14.7) Seconds INR 1.4 APTT 35.1 (22.3-36.8) Seconds Sodium 136 L (137-145) mmol/L Potassium 3.7 (3.4-5.0) mmol/L Chloride 100 (98-107) mmol/L Carbon Dioxide 21 L (22-30) mmol/L Anion Gap 15 H (4-12) mmol/L BUN 89 H D (9-20) mg/dL Creatinine 6.24 H (0.7-1.3) mg/dL Estim Creat Clear Calc 10 ml/min Estimated GFR 9 L (59 - ) Glucose 151 H (65-110) mg/dL Serum Osmolality Pending Lactic Acid 1.9 (0.7-2.0) mmol/L Calcium 8.2 L (8.4-10.2) mg/dL Total Bilirubin 0.4 (0.2-1.3) mg/dL AST 30 (17-59) U/L ALT 27 (6-50) U/L Alkaline Phosphatase 131 H (38-126) U/L Total Creatine Kinase 28 L (55-170) U/L C-Reactive Protein 13.3 H (<1.0) mg/dL Total Protein 7.0 (6.3-8.2) g/dL Albumin 3.1 L (3.5-5.1) g/dL Urine Color Yellow (Yellow) Urine Appearance Clear (Clear) Urine pH 6.0 (5.0-9.0) Ur Specific Douglas 1.012 (1.001-1.035) Urine Protein 2+ H (Negative) mg/dL Urine Glucose (UA) Negative (Negative) mg/dL Urine Ketones Negative (Negative) mg/dL Ur Blood (Man) 1+ H (Negative) Urine Nitrate Negative (Negative) Urine Bilirubin Negative (Negative) Urine Urobilinogen 0.2 (<2.0) mg/dL Leukocyte Esterase Rfl 3+ H (Negative) JOSE/UL Urine RBC 3-5 H (0-2) /hpf Urine WBC 51-100 H (0-3) /hpf Ur Squamous Epith Cells Occasional (Few) /hpf Urine Bacteria None seen /hpf Urine Casts 0-2 Nasal MRSA (PCR) (NOT DETECTE) 05/15/25 Range/Units 13:50 WBC (4.5-10.0) K/mm3 RBC (4.6-6.20) M/mm3 Hgb (14.0-18.0) g/dL Hct (42.0-52.0) % MCV (80-100) fl MCH (26-34) pg MCHC (32-36) g/dl RDW (11.5-14.5) % Plt Count (150-375) k/mm3 MPV (7.4-10.4) fl Immature Gran % (Auto) (0-0.5) % Neut % (Auto) (45.5-73.1) % Lymph % (Auto) (18.3-44.2) % Tucker % (Auto) (2.6-8.5) % Eos % (Auto) (0-4.4) % Baso % (Auto) (0.2-1.2) % Lymph # (Auto) (0.9-3.2) K/mm3 Tucker # (Auto) (0.1-0.6) K/mm3 Eos # (Auto) (0-0.3) K/mm3 Baso # (Auto) (0.0-0.1) K/mm3 Abs Immat Gran (auto) (0.00-0.031) K/mm3 Absolute Neuts (auto) (1.3-6.7) K/mm3 Absolute Nucleated RBC (0.0-0.012) K/mm3 Nucleated RBC % (0.0-0.2) % PT (11.1-14.7) Seconds INR APTT (22.3-36.8) Seconds Sodium (137-145) mmol/L Potassium (3.4-5.0) mmol/L Chloride (98-107) mmol/L Carbon Dioxide (22-30) mmol/L Anion Gap (4-12) mmol/L BUN (9-20) mg/dL Creatinine (0.7-1.3) mg/dL Estim Creat Clear Calc ml/min Estimated GFR (59 - ) Glucose (65-110) mg/dL Serum Osmolality Lactic Acid (0.7-2.0) mmol/L Calcium (8.4-10.2) mg/dL Total Bilirubin (0.2-1.3) mg/dL AST (17-59) U/L ALT (6-50) U/L Alkaline Phosphatase (38-126) U/L Total Creatine Kinase (55-170) U/L C-Reactive Protein (<1.0) mg/dL Total Protein (6.3-8.2) g/dL Albumin (3.5-5.1) g/dL Urine Color (Yellow) Urine Appearance (Clear) Urine pH (5.0-9.0) Ur Specific Douglas (1.001-1.035) Urine Protein (Negative) mg/dL Urine Glucose (UA) (Negative) mg/dL Urine Ketones (Negative) mg/dL Ur Blood (Man) (Negative) Urine Nitrate (Negative) Urine Bilirubin (Negative) Urine Urobilinogen (<2.0) mg/dL Leukocyte Esterase Rfl (Negative) JOSE/UL Urine RBC (0-2) /hpf Urine WBC (0-3) /hpf Ur Squamous Epith Cells (Few) /hpf Urine Bacteria /hpf Urine Casts Nasal MRSA (PCR) Not detected (NOT DETECTE) <Ashley Rainey PA-C - Last Filed: 05/15/25 14:02> Lab Results 05/15/25 05/15/25 05/15/25 Range/Units 10:59 11:00 12:39 WBC 13.0 H (4.5-10.0) K/mm3 RBC 2.96 L (4.6-6.20) M/mm3 Hgb 8.8 L (14.0-18.0) g/dL Hct 27.5 L (42.0-52.0) % MCV 92.9 (80-100) fl MCH 29.7 (26-34) pg MCHC 32.0 (32-36) g/dl RDW 13.9 (11.5-14.5) % Plt Count 323 (150-375) k/mm3 MPV 8.4 (7.4-10.4) fl Immature Gran % (Auto) 1.4 H (0-0.5) % Neut % (Auto) 74.3 H (45.5-73.1) % Lymph % (Auto) 14.9 L (18.3-44.2) % Tucker % (Auto) 5.1 (2.6-8.5) % Eos % (Auto) 4.1 (0-4.4) % Baso % (Auto) 0.2 (0.2-1.2) % Lymph # (Auto) 1.93 (0.9-3.2) K/mm3 Tucker # (Auto) 0.7 H (0.1-0.6) K/mm3 Eos # (Auto) 0.5 H (0-0.3) K/mm3 Baso # (Auto) 0.0 (0.0-0.1) K/mm3 Abs Immat Gran (auto) 0.18 H (0.00-0.031) K/mm3 Absolute Neuts (auto) 9.7 H (1.3-6.7) K/mm3 Absolute Nucleated RBC 0.000 (0.0-0.012) K/mm3 Nucleated RBC % 0.0 (0.0-0.2) % PT 17.0 H (11.1-14.7) Seconds INR 1.4 APTT 35.1 (22.3-36.8) Seconds Sodium 136 L (137-145) mmol/L Potassium 3.7 (3.4-5.0) mmol/L Chloride 100 (98-107) mmol/L Carbon Dioxide 21 L (22-30) mmol/L Anion Gap 15 H (4-12) mmol/L BUN 89 H D (9-20) mg/dL Creatinine 6.24 H (0.7-1.3) mg/dL Estim Creat Clear Calc 10 ml/min Estimated GFR 9 L (59 - ) Glucose 151 H (65-110) mg/dL Serum Osmolality Pending Lactic Acid 1.9 (0.7-2.0) mmol/L Calcium 8.2 L (8.4-10.2) mg/dL Total Bilirubin 0.4 (0.2-1.3) mg/dL AST 30 (17-59) U/L ALT 27 (6-50) U/L Alkaline Phosphatase 131 H (38-126) U/L Total Creatine Kinase 28 L (55-170) U/L C-Reactive Protein 13.3 H (<1.0) mg/dL Total Protein 7.0 (6.3-8.2) g/dL Albumin 3.1 L (3.5-5.1) g/dL Urine Color Yellow (Yellow) Urine Appearance Clear (Clear) Urine pH 6.0 (5.0-9.0) Ur Specific Douglas 1.012 (1.001-1.035) Urine Protein 2+ H (Negative) mg/dL Urine Glucose (UA) Negative (Negative) mg/dL Urine Ketones Negative (Negative) mg/dL Ur Blood (Man) 1+ H (Negative) Urine Nitrate Negative (Negative) Urine Bilirubin Negative (Negative) Urine Urobilinogen 0.2 (<2.0) mg/dL Leukocyte Esterase Rfl 3+ H (Negative) JOSE/UL Urine RBC 3-5 H (0-2) /hpf Urine WBC 51-100 H (0-3) /hpf Ur Squamous Epith Cells Occasional (Few) /hpf Urine Bacteria None seen /hpf Urine Casts 0-2 Nasal MRSA (PCR) (NOT DETECTE) 05/15/25 Range/Units 13:50 WBC (4.5-10.0) K/mm3 RBC (4.6-6.20) M/mm3 Hgb (14.0-18.0) g/dL Hct (42.0-52.0) % MCV (80-100) fl MCH (26-34) pg MCHC (32-36) g/dl RDW (11.5-14.5) % Plt Count (150-375) k/mm3 MPV (7.4-10.4) fl Immature Gran % (Auto) (0-0.5) % Neut % (Auto) (45.5-73.1) % Lymph % (Auto) (18.3-44.2) % Tucker % (Auto) (2.6-8.5) % Eos % (Auto) (0-4.4) % Baso % (Auto) (0.2-1.2) % Lymph # (Auto) (0.9-3.2) K/mm3 Tucker # (Auto) (0.1-0.6) K/mm3 Eos # (Auto) (0-0.3) K/mm3 Baso # (Auto) (0.0-0.1) K/mm3 Abs Immat Gran (auto) (0.00-0.031) K/mm3 Absolute Neuts (auto) (1.3-6.7) K/mm3 Absolute Nucleated RBC (0.0-0.012) K/mm3 Nucleated RBC % (0.0-0.2) % PT (11.1-14.7) Seconds INR APTT (22.3-36.8) Seconds Sodium (137-145) mmol/L Potassium (3.4-5.0) mmol/L Chloride (98-107) mmol/L Carbon Dioxide (22-30) mmol/L Anion Gap (4-12) mmol/L BUN (9-20) mg/dL Creatinine (0.7-1.3) mg/dL Estim Creat Clear Calc ml/min Estimated GFR (59 - ) Glucose (65-110) mg/dL Serum Osmolality Lactic Acid (0.7-2.0) mmol/L Calcium (8.4-10.2) mg/dL Total Bilirubin (0.2-1.3) mg/dL AST (17-59) U/L ALT (6-50) U/L Alkaline Phosphatase (38-126) U/L Total Creatine Kinase (55-170) U/L C-Reactive Protein (<1.0) mg/dL Total Protein (6.3-8.2) g/dL Albumin (3.5-5.1) g/dL Urine Color (Yellow) Urine Appearance (Clear) Urine pH (5.0-9.0) Ur Specific Douglas (1.001-1.035) Urine Protein (Negative) mg/dL Urine Glucose (UA) (Negative) mg/dL Urine Ketones (Negative) mg/dL Ur Blood (Man) (Negative) Urine Nitrate (Negative) Urine Bilirubin (Negative) Urine Urobilinogen (<2.0) mg/dL Leukocyte Esterase Rfl (Negative) JOSE/UL Urine RBC (0-2) /hpf Urine WBC (0-3) /hpf Ur Squamous Epith Cells (Few) /hpf Urine Bacteria /hpf Urine Casts Nasal MRSA (PCR) Not detected (NOT DETECTE) <Joel Tiwari MD - Last Filed: 05/15/25 19:08> Imaging Data Radiologist's impression: ITS Impressions Chest X-Ray 05/15/25 12:01 IMPRESSION: Left basilar atelectasis versus pneumonia. <Ashley Rainey PA-C - Last Filed: 05/15/25 14:02> ECG Data EKG #1: ECG completion date: 05/15/25 <Ashley Rainey PA-C - Last Filed: 05/15/25 14:02> EKG Interpretation: normal rate, sinus rhythm, non-specific ST changes, normal QT and no acute changes (compared to the EKG 04/14) <Ashley Rainey PA-C - Last Filed: 05/15/25 14:02> Critical Care Time Critical Care Time Critical Care Time: Yes <Ashley Rainey PA-C - Last Filed: 05/15/25 14:02> Total Critical Care Time: 35 <Ashley Rainey PA-C - Last Filed: 05/15/25 14:02> Discharge Plan Discharge Clinical Impression: Pyuria Acute kidney failure Qualifiers: Acute renal failure type: unspecified Qualified Code(s): N17.9 - Acute kidney failure, unspecified Pneumonia Qualifiers: Pneumonia type: due to unspecified organism Laterality: left Lung location: lower lobe of lung Qualified Code(s): J18.9 - Pneumonia, unspecified organism <Ashley Rainey PA-C - Last Filed: 05/15/25 14:02> Patient Disposition: Still a Patient <GILLES Villavicecnio Last Filed: 05/15/25 14:02> Condition: Serious <GILLES Villavicencio Last Filed: 05/15/25 14:02>
[2025-05-15 11:26] LABS: Alanine Aminotransferase 27 U/L (6-50); Albumin Level 3.1 g/dL (3.5-5.1); Alkaline Phosphatase 131 U/L (38-126); Anion Gap 15 mmol/L (4-12); Aspartate Amino Transferase 30 U/L (17-59); Bilirubin,Total 0.4 mg/dL (0.2-1.3); Blood Urea Nitrogen 89 mg/dL (9-20); Calcium 8.2 mg/dL (8.4-10.2); Carbon Dioxide 21 mmol/L (22-30); Chloride 100 mmol/L (98-107); Estimated CRCL calculation 10 ml/min; Estimated Glomerular Filt Rate 9; Glucose 151 mg/dL (65-110); Potassium 3.7 mmol/L (3.4-5.0); Sodium 136 mmol/L (137-145); Total Protein 7.0 g/dL (6.3-8.2)
--- NOTE | 2025-05-15 11:31 | PC.NURSE ---
EDP MALACHI Palomo notified of pt not having any urine when bladder scanned and new catheter placed. No new orders at this time.
[2025-05-15 11:32] LABS: INR 1.4; Prothrombin Time 17.0 Seconds (11.1-14.7)
[2025-05-15 11:33] LABS: Partial Thromboplastin Time 35.1 Seconds (22.3-36.8)
[2025-05-15] MEDS: SODIUM CHLORIDE 0.9% IV 1,000 ML 999 ML IV CONT ×2 (11:35→12:51)
[2025-05-15 11:39] LABS: CRP 13.3 mg/dL (<1.0)
[2025-05-15 11:43] VITALS: BP 132/75; PULSE 64; RESP 14; O2SAT 97
[2025-05-15 11:55] LABS: Creatine Kinase 28 U/L (55-170)
[2025-05-15 12:49] LABS: Add Urine Microscopic? YES; Appearance Urine Clear (Clear); Glucose Urine UA Negative (Negative); Leukocyte Esterase Ur 3+ LEU/UL (Negative); Nitrate Urine Negative (Negative); Non Pathogenic Casts 0-2; Specific Grav Ur 1.012 (1.001-1.035)
--- NOTE | 2025-05-15 13:16 | PM.IMHP ---
H&P: HPI History of Present Illness Date/Time: 05/15/25 13:16 Chief Complaint: Abnormal Labs Narrative: 70 y/o M with PMH of of CVA, paroxysmal AFib, CKD, chronic anemia, neurogenic bladder with chronic indwelling Bosch, hyperlipidemia, BPH, and hypertension presents here with acute renal failure. The patient presents here from [facility] for further evaluation of abnormal lab work on 05/15. Patient was unsure what lab work was abnormal. ED evaluation revealed acute renal failure with a creatinine of 6.24, BUN of 89, and GFR of 9. Previously 1.51, BUN 31, and GFR 46 on 04/23/2025. The patient reports he is feeling well and and his normal state of health. He denies any nausea, vomiting, diarrhea, abdominal, fever, chills, body aches, shortness of breath. He does report a chronic/intermittent dry cough that is unchanged from his baseline. Recent admission from 04/19/2025 to 05/20/2025 for fall due to age related changes/debility and UTI. He was evaluated by PT/OT who recommended sniff placement and he was discharged to [facility]. Since discharge he has had no complaints. Initial VS at presentation: 97.6? F, HR 67, RR 17, 138/68, and 100% on RA. ED workup showed: WBC 13.0 (9.1 on 04/23), hemoglobin 8.8 (10.4 on 04/23), INR 1.4, creatinine 6.24, BUN 89, GFR 9, glucose 151, lactic 1.9, CRP 13.3, CK 28. UA equivocal for UTI. CXR showed left basilar atelectasis versus pneumonia. Renal ultrasound showed normal kidneys without hydronephrosis, mild thickening of the bladder wall with irregular mucosal surface consistent which is somewhat limited by partially decompressed state. Review of Systems Review of Systems: All systems reviewed & are unremarkable except as noted in HPI and below [facility] Past Medical History Medical History Chronic anemia PAF (paroxysmal atrial fibrillation) Combined systolic and diastolic congestive heart failure CKD (chronic kidney disease) Anxiety Arthritis TIA (transient ischemic attack) CVA (cerebral vascular accident) Per MRI on 03/20/2024, old infarcts in the bilateral basal ganglia Indwelling Bosch catheter present Non-insulin dependent diabetes mellitus Normocytic anemia Hyperlipidemia Neurogenic bladder Obstructive uropathy BPH loc w urin obs/LUTS Hypertension Surgical History Surgical History History of appendectomy Family History Family History Father Cerebrovascular accident Mother Alcohol abuse Alcohol abuse by patient's mother Heart attack Hypertension Social History Social History Social History: Has a daughter Smoking packs per day: 1 Smoking cigarettes per day: 20.0 Years smoked: 20 Smoking pack-years: 20.00 Smoking status: Current every day smoker Tobacco type: cigarettes Second hand tobacco smoke exposure: Yes Additional smoking assessment comments: pt states he started smoking when he got at the age of 39 Alcohol intake: former Drinks per week: 1 Alcohol use details: couple times a week (happy hour) Substance use: current Substance use type: marijuana Other substance usage details: smokes marijuana when friends bring it to him Last use: 04/04/25 Do You Feel Safe in your Home?: Yes Lack of Transportation: No Lack of Food: Never True Current Housing: I Have Housing Concerned About Future Housing: No Difficulty Paying Gas/Electric Bills: No Difficulty Paying for Meds: No Currently Unemployed: No Education: High School Diploma/GED Difficulty w/ Childcare or Family Care: No Living arrangements: assisted living Spiritual care concerns: No Meds Home Medications and Allergies Home Medications ?Medication ?Instructions ?Recorded ?Confirmed ?Type apixaban 5 mg tablet 5 mg feeding tube BID #60 tabs 10/17/24 04/20/25 Rx atorvastatin 40 mg tablet 40 mg feeding tube DAILY #30 tabs 10/17/24 04/20/25 Rx finasteride 5 mg tablet (Proscar) 5 mg feeding tube QAM #30 tabs 10/17/24 04/20/25 Rx metoprolol tartrate 50 mg tablet 50 mg feeding tube Q12HR #60 tabs 10/17/24 04/20/25 Rx mirtazapine 15 mg tablet (Remeron) 15 mg feeding tube HS #30 tabs 10/17/24 04/20/25 Rx sulfamethoxazole 800 1 tab PO Q12HR #6 tabs 04/23/25 Rx mg-trimethoprim 160 mg tablet Allergies Allergy/AdvReac Type Severity Reaction Status Date / Time No Known Allergies Allergy Mild Verified 05/15/25 14:10 Vital Signs Vital Signs - 24 hr 05/15/25 10:36 05/15/25 11:43 Temperature 97.6 F Pulse Rate 67 64 Respiratory Rate 17 14 Blood Pressure 138/68 132/75 Pulse Oximetry 100 97 Oxygen Delivery Room Air Exam Const: General: comfortable and no acute distress Other: , male, elderly, chronically ill-appearing HENMT: Face/Nose/Sinus: Normal nares present Mouth: Yes moist mucous membranes Eyes: General: appearance normal, both eyes and all related structures Sclera: sclerae normal Pupils: Equal, round and reactive pupils present EOM: EOMs intact bilaterally Resp: Effort & Inspection: normal respiratory effort Auscultation: clear to auscultation bilaterally Cardio: Rate: regular rate Rhythm: regular rhythm Other: S1-S2 present without murmur, rub, ectopy GI: Other: Abdomen soft, nondistended, nontender. Normoactive bowel sounds in all quadrants. : General: Yes bladder normal to palpation Urinary Catheter: Urinary Catheter: patent and draining (Minimal output) Skin: General skin exam: normal color and no rashes or lesions noted Wounds: no wounds Neuro: Speech: normal speech Motor exam (neuro): 5/5 motor strength present throughout Sensory Exam: normal sensation Other: A&O x4 Extrem: General: normal to inspection Psych: Mental Status: mental status grossly normal Affect: normal affect Other: Good insight and judgment, pleasant H&P: Results Labs Labs: Short CBC 05/15/25 Range/Units 11:00 WBC 13.0 H (4.5-10.0) K/mm3 Hgb 8.8 L (14.0-18.0) g/dL Hct 27.5 L (42.0-52.0) % Plt Count 323 (150-375) k/mm3 BMP 05/15/25 11:00 Sodium 136 L Potassium 3.7 Chloride 100 Carbon Dioxide 21 L BUN 89 H D Creatinine 6.24 H Glucose 151 H Calcium 8.2 L Cardiac Enzymes 05/15/25 Range/Units 11:00 Total Creatine Kinase 28 L (55-170) U/L Liver Function 05/15/25 Range/Units 11:00 Total Bilirubin 0.4 (0.2-1.3) mg/dL AST 30 (17-59) U/L ALT 27 (6-50) U/L Alkaline Phosphatase 131 H (38-126) U/L Albumin 3.1 L (3.5-5.1) g/dL Urine 05/15/25 Range/Units 12:39 Urine Color Yellow (Yellow) Urine Appearance Clear (Clear) Urine pH 6.0 (5.0-9.0) Ur Specific [place] 1.012 (1.001-1.035) Urine Protein 2+ H (Negative) mg/dL Urine Glucose (UA) Negative (Negative) mg/dL Assessment and Plan Assessment and plan (1) Acute kidney injury superimposed on CKD: Code(s): N17.9 - Acute kidney failure, unspecified; N18.9 - Chronic kidney disease, unspecified Status: Acute Assessment and Plan: - creatinine 6.24, BUN 15, GFR 9. Previously 1.51, BUN 31, and GFR 46 on 05/20/2025. - renal ultrasound -> patient has no prior cystoscopy on exam, will consult Urology for further evaluation. 1. Normal kidneys without hydronephrosis. 2. Mild thickening of the bladder wall with irregular mucosal surface, consistent which is somewhat limited by partially decompressed state. Differential would include cystitis either acute or chronic which is suggested by the appearance on prior CT, sequela of chronic outlet obstruction or malignancy. Correlate with urinalysis and clinical history. Consider cystoscopy for further evaluation as clinically indicated. - check CK, urine sodium, protein/creatinine, urea - Bosch exchanged on 05/15 - monitor I&Os - IV fluids: 2L bolus -> LR 150 mL/hour x1L - nephrology consultation, awaiting recs Patient recently admitted here after he was found down and has no recollection of events. He was living at home independently. He was treated for a UTI, started on ceftriaxone. UA grew Enterobacter susceptible to Bactrim, discharged with same. UA today equivocal for infection, however started on antibiotics. For output in the ED despite Bosch exchange may indicate there is a dehydration component. Will check labs and renal ultrasound. IV fluids. Nephrology consulted. Renal ultrasound showed irregular mucosal surface of the bladder, could be related to chronic outlet obstruction or malignancy. No prior cystoscopy on file, will consult Urology for evaluation for possible need for cystoscopy. (2) Pneumonia: Qualifiers: Laterality: left Lung location: lower lobe of lung Pneumonia type: due to unspecified organism Qualified Code(s): J18.9 - Pneumonia, unspecified organism Code(s): J18.9 - Pneumonia, unspecified organism Status: Acute Assessment and Plan: - CXR: Left basilar atelectasis versus pneumonia. - complicating/risk factors: Recent hospitalization - started on ceftriaxone and azithromycin, exchanged it to cefepime and doxycycline. Cefepime due to previous urine culture (see below) during most recent admission. - check MRSA PCR in sputum culture (if obtainable) - supportive care - no current supplemental oxygen requirement (3) UTI (urinary tract infection): Qualifiers: Hematuria presence: without hematuria Urinary tract infection type: acute cystitis Qualified Code(s): N30.00 - Acute cystitis without hematuria Code(s): N39.0 - Urinary tract infection, site not specified Status: Acute Assessment and Plan: - UA: 2+ protein, 1+ blood, 3+ leuk esterase, 3-5 RBC, 51-100 WBC, occasional epithelial cells no bacteria. Contaminant versus infection. - UC pending - previous micro reviewed, Enterobacter on 04/19 that was resistant to Augmentin and/Ancef, intermediate to Macrobid. Ceftriaxone sensitivities not listed. - started on cefepime on 05/15 (4) Neurogenic bladder: Code(s): N31.9 - Neuromuscular dysfunction of bladder, unspecified Status: Acute Assessment and Plan: - chronic Bosch, exchanged today on 05/15 (5) Diabetes: Qualifiers: Diabetes mellitus complication status: without complication Diabetes mellitus nursing home insulin use: without nursing home use Diabetes mellitus type: type 2 Qualified Code(s): E11.9 - Type 2 diabetes mellitus without complications Code(s): E11.9 - Type 2 diabetes mellitus without complications Status: Chronic Assessment and Plan: - hypoglycemia protocol - POC blood glucose ACHS - previously resolved and no longer on medications. Arrived with a glucose in the 150s. Will recheck A1c and order corrective regimen. - correct regimen ordered - low dose TIDWM, based off BMI - A1C 6.7% in September of 2024, updating (6) Hypertension: Qualifiers: Hypertension type: primary hypertension Qualified Code(s): I10 - Essential (primary) hypertension Code(s): I10 - Essential (primary) hypertension Status: Chronic Assessment and Plan: - chronic, currently 132/75 - continue home medications: Metoprolol - monitor Plan Diet: Heart healthy GI Prophylaxis: Not indicated DVT Prophylaxis: Eliquis IV fluids: 2L bolus -> LR 150 mL/hour x1L Lines/Tubes: Peripheral IV, Bosch Code Status: DNR Quality VTE Prophylaxis VTE prophylaxis: pharmacologic ordered Hospitalist MIPS Advance Care Plan I have confirmed that the patient's Advanced Care Plan is present, code status is documented, or surrogate decision maker is listed in patient medical record.: Yes Medication Reconciliation I have utilized all available resources to obtain, update and review the patients current medications (includes all prescriptions, OTC, herbals, cannabis, and nutritional supplements).: Yes
[2025-05-15] MEDS: AZITHROMYCIN 500 MG/NS 250 ML 500 MG/250 ML BAG 250 MG IVPB (13:18)
[2025-05-15 14:30] VITALS: BP 145/67; PULSE 65; RESP 16; TEMP 36.1; O2SAT 100
[2025-05-15 15:04] LABS: MRSA (PCR) NOT DETECTED (NOT DETECTE)
--- NOTE | 2025-05-15 15:46 | WPDURCON ---
Assessment and Plan Assessment and plan (1) Acute kidney failure: Qualifiers: Acute renal failure type: unspecified Qualified Code(s): N17.9 - Acute kidney failure, unspecified Code(s): N17.9 - Acute kidney failure, unspecified Status: Acute (2) Neurogenic bladder: Code(s): N31.9 - Neuromuscular dysfunction of bladder, unspecified Status: Acute Plan 70y old male with chronic indwelling catheter secondary to neurogenic bladder. -As noted, SOWMYA showed normal kidneys without hydronephrosis, mild thickening of the bladder wall with irregular mucosal surface consistent which is somewhat limited by partially decompressed state. -Change catheter this admission and maintain. He will be discharged with the catheter as this is chronic. -Urine culture pending. Culture driven antibiotics per primary service. -No obstruction noted on imaging. Cr has gone from 1.51 to 6.24 since april 23 2025. Nephrology already consulted. -No surgical urological intervention planned. -Consider outpatient cystoscopy in future to evaluate the bladder wall thickening. Urology Consult Note HPI Date Seen: 05/15/25 Requesting Physician: Leonard Marcos MD Primary Care Provider: Ronnell Zhang MD Consult Narrative Narrative: Yvan Chau is a 70 year old male with PMH of of CVA, paroxysmal AFib, CKD, chronic anemia, neurogenic bladder with chronic indwelling Bosch, hyperlipidemia, BPH, and hypertension presents here with acute renal failure. The patient presents here from [facility] for further evaluation of abnormal lab work on 05/15. Patient was unsure what lab work was abnormal. ED evaluation revealed acute renal failure with a creatinine of 6.24, BUN of 89, and GFR of 9. Previously 1.51, BUN 31, and GFR 46 on 04/23/2025. The patient reports he is feeling well and and his normal state of health. He denies any nausea, vomiting, diarrhea, abdominal, fever, chills, body aches, shortness of breath. He does report a chronic/intermittent dry cough that is unchanged from his baseline. Recent admission from 04/19/2025 to 05/20/2025 for fall due to age related changes/debility and UTI. He was evaluated by PT/OT who recommended snf placement and he was discharged to [facility]. Since discharge he has had no complaints. Initial VS at presentation: 97.6? F, HR 67, RR 17, 138/68, and 100% on RA. ED workup showed: WBC 13.0 (9.1 on 04/23), hemoglobin 8.8 (10.4 on 04/23), INR 1.4, creatinine 6.24, BUN 89, GFR 9, glucose 151, lactic 1.9, CRP 13.3, CK 28. UA equivocal for UTI. CXR showed left basilar atelectasis versus pneumonia. Renal ultrasound showed normal kidneys without hydronephrosis, mild thickening of the bladder wall with irregular mucosal surface consistent which is somewhat limited by partially decompressed state. Review of Systems Constitutional: Constitutional: Reports as per HPI and Reports no additional constitutional complaints PMFSH Past Medical History Medical History Chronic anemia PAF (paroxysmal atrial fibrillation) Combined systolic and diastolic congestive heart failure CKD (chronic kidney disease) Anxiety Arthritis TIA (transient ischemic attack) CVA (cerebral vascular accident) Per MRI on 03/20/2024, old infarcts in the bilateral basal ganglia Indwelling Bosch catheter present Non-insulin dependent diabetes mellitus Normocytic anemia Hyperlipidemia Neurogenic bladder Obstructive uropathy BPH loc w urin obs/LUTS Hypertension Surgical History Surgical History History of appendectomy Family History Family History Father Cerebrovascular accident Mother Alcohol abuse Alcohol abuse by patient's mother Heart attack Hypertension Social History Social History Social History: Has a daughter Smoking packs per day: 1 Smoking cigarettes per day: 20.0 Years smoked: 20 Smoking pack-years: 20.00 Smoking status: Current every day smoker Tobacco type: cigarettes Second hand tobacco smoke exposure: Yes Additional smoking assessment comments: pt states he started smoking when he got at the age of 39 Alcohol intake: former Drinks per week: 1 Alcohol use details: couple times a week (happy hour) Substance use: current Substance use type: marijuana Other substance usage details: smokes marijuana when friends bring it to him Last use: 04/04/25 Do You Feel Safe in your Home?: Yes Lack of Transportation: No Lack of Food: Never True Current Housing: I Have Housing Concerned About Future Housing: No Difficulty Paying Gas/Electric Bills: No Difficulty Paying for Meds: No Currently Unemployed: No Education: High School Diploma/GED Difficulty w/ Childcare or Family Care: No Living arrangements: assisted living Spiritual care concerns: No Meds Home Medications and Allergies Home Medications ?Medication ?Instructions ?Recorded ?Confirmed ?Type apixaban 5 mg tablet 5 mg feeding tube BID #60 tabs 10/17/24 04/20/25 Rx atorvastatin 40 mg tablet 40 mg feeding tube DAILY #30 tabs 10/17/24 04/20/25 Rx finasteride 5 mg tablet (Proscar) 5 mg feeding tube QAM #30 tabs 10/17/24 04/20/25 Rx metoprolol tartrate 50 mg tablet 50 mg feeding tube Q12HR #60 tabs 10/17/24 04/20/25 Rx mirtazapine 15 mg tablet (Remeron) 15 mg feeding tube HS #30 tabs 10/17/24 04/20/25 Rx sulfamethoxazole 800 1 tab PO Q12HR #6 tabs 04/23/25 Rx mg-trimethoprim 160 mg tablet Allergies Allergy/AdvReac Type Severity Reaction Status Date / Time No Known Allergies Allergy Mild Verified 05/15/25 14:10 Vital Signs Vital Signs - 24 hr 05/15/25 10:36 05/15/25 11:43 Temperature 97.6 F Pulse Rate 67 64 Respiratory Rate 17 14 Blood Pressure 138/68 132/75 Pulse Oximetry 100 97 Oxygen Delivery Room Air Exam Const: General: comfortable and no acute distress HENMT: Face/Nose/Sinus: Normal nares present Eyes: General: appearance normal, both eyes and all related structures Resp: Effort & Inspection: normal respiratory effort Urinary Catheter: Urinary Catheter: patent and draining and urine clear (yellow) Skin: General skin exam: normal color Results Labs 05/15/25 11:00 05/15/25 11:00 Labs: Short CBC 05/15/25 Range/Units 11:00 WBC 13.0 H (4.5-10.0) K/mm3 Hgb 8.8 L (14.0-18.0) g/dL Hct 27.5 L (42.0-52.0) % Plt Count 323 (150-375) k/mm3 BMP 05/15/25 11:00 Sodium 136 L Potassium 3.7 Chloride 100 Carbon Dioxide 21 L BUN 89 H D Creatinine 6.24 H Glucose 151 H Calcium 8.2 L Cardiac Enzymes 05/15/25 Range/Units 11:00 Total Creatine Kinase 28 L (55-170) U/L Liver Function 05/15/25 Range/Units 11:00 Total Bilirubin 0.4 (0.2-1.3) mg/dL AST 30 (17-59) U/L ALT 27 (6-50) U/L Alkaline Phosphatase 131 H (38-126) U/L Albumin 3.1 L (3.5-5.1) g/dL Urine 05/15/25 Range/Units 12:39 Urine Color Yellow (Yellow) Urine Appearance Clear (Clear) Urine pH 6.0 (5.0-9.0) Ur Specific [place] 1.012 (1.001-1.035) Urine Protein 2+ H (Negative) mg/dL Urine Glucose (UA) Negative (Negative) mg/dL
[2025-05-15 16:11] VITALS: BMI 23.1
--- NOTE | 2025-05-15 16:57 | ADMGEN ---
This patient, Yvan Chau, was admitted to [facility] Surg Room 330-01. Patient/family oriented to hospital policies and general routines including ID bracelet, bed and alarms, visiting hours, pain management, procedures, bathroom and other care routines, personal items, smoking policy, room service/diet, and visiting hours. Information on how to activate the Rapid Response Team has been discussed. Patient/Family are encouraged to report perceived risks to care and to ask questions if they do not understand what they are told or what they should do.
[2025-05-15] MEDS: CEFEPIME 1 GM/NS 50 ML 1 GM/50 ML BAG IVPB (18:28)
[2025-05-15] MEDS: LACTATED RINGERS 1,000 ML 150 ML IV CONT (18:28)
[2025-05-15 19:03] LABS: Total Protein Urine Random 58 mg/dL; Ur Ttl Prot Creatinine Ratio 3.07 mg/mg (0-0.20)
[2025-05-15 19:22] LABS: Urea Random Urine 207 MG/DL
[2025-05-15] MEDS: ACETAMINOPHEN 325 MG TABLET 650 MG PO (19:50)
[2025-05-15] MEDS: DOXYCYCLINE HYCLATE 100 MG TABLET PO (20:00)
[2025-05-15] MEDS: guaiFENesin 12 HR 600 MG TABCR PO (20:00)
[2025-05-15 21:16] LABS: Urine Eos QC 2nd Tech Confirmed
[2025-05-15 21:25] VITALS: BP 160/75; PULSE 68; RESP 16; TEMP 37.4; O2SAT 99
[2025-05-15 23:06] VITALS: PULSE 65
[2025-05-15] MEDS: METOPROLOL TARTRATE 50 MG TAB PO (23:06)
[2025-05-15] MEDS: MIRTAZAPINE 15 MG TABLET PO (23:06)
[2025-05-15] MEDS: APIXABAN 5 MG TABLET PO (23:06)
[2025-05-16] MEDS: CEFEPIME 1 GM/NS 50 ML 1 GM/50 ML BAG IVPB ×2 (05:13→17:16)
[2025-05-16 05:22] VITALS: BP 179/88; PULSE 74; RESP 16; TEMP 36.6; O2SAT 98
[2025-05-16 08:28] LABS: Hematocrit 28.9 % (42.0-52.0); Hemoglobin 9.0 g/dL (14.0-18.0); Immature Granulocyte Percent A 1.6 % (0-0.5); Lymphocytes Absolute Auto 1.80 K/mm3 (0.9-3.2); Mean Corpuscular HGB Conc 31.1 g/dl (32-36); Mean Corpuscular Hemoglobin 29.6 pg (26-34); Mean Corpuscular Volume 95.1 fl (80-100); Nucleated Red Blood Cells Absolute Auto 0.000 K/mm3 (0.0-0.012); Nucleated Red Blood Cells Perc 0.0 % (0.0-0.2); Platelet Count Result 271 k/mm3 (150-375); Red Blood Count 3.04 M/mm3 (4.6-6.20); White Blood Count 10.4 K/mm3 (4.5-10.0)
[2025-05-16 08:32] VITALS: PULSE 80
[2025-05-16] MEDS: guaiFENesin 12 HR 600 MG TABCR PO ×2 (08:32→21:04)
[2025-05-16] MEDS: APIXABAN 5 MG TABLET PO ×2 (08:32→21:03)
[2025-05-16] MEDS: METOPROLOL TARTRATE 50 MG TAB PO ×2 (08:32→21:03)
[2025-05-16] MEDS: DOXYCYCLINE HYCLATE 100 MG TABLET PO ×2 (08:32→21:04)
[2025-05-16] MEDS: FINASTERIDE 5 MG TABLET PO (08:32)
[2025-05-16] MEDS: ATORVASTATIN 40 MG TABLET PO (08:32)
[2025-05-16 08:42] LABS: Alanine Aminotransferase 26 U/L (6-50); Albumin Level 2.9 g/dL (3.5-5.1); Alkaline Phosphatase 133 U/L (38-126); Anion Gap 14 mmol/L (4-12); Aspartate Amino Transferase 29 U/L (17-59); Bilirubin,Total 0.6 mg/dL (0.2-1.3); Blood Urea Nitrogen 83 mg/dL (9-20); Calcium 8.2 mg/dL (8.4-10.2); Carbon Dioxide 18 mmol/L (22-30); Chloride 106 mmol/L (98-107); Estimated CRCL calculation 11 ml/min; Estimated Glomerular Filt Rate 9; Glucose 93 mg/dL (65-110); Magnesium 1.3 mg/dL (1.6-2.3); Potassium 3.9 mmol/L (3.4-5.0); Sodium 138 mmol/L (137-145); Total Protein 6.6 g/dL (6.3-8.2)
[2025-05-16 09:10] LABS: Hemoglobin A1C 5.7 % (<5.7)
--- NOTE | 2025-05-16 13:40 | P.CONNP_ITS ---
Assessment and Plan Assessment and plan (1) Acute kidney injury: Code(s): N17.9 - Acute kidney failure, unspecified Status: Acute Assessment and Plan: * as noted by admission labs * evaluation to date noted: * renal ultrasound w/o acute obstruction * UA suggestive of infection * urine electrolytes non-prerenal * urine eosinophils * proteinuria noted * CPK low/normal * etiology not entirely clear - possibly related to: * prerenal factors * infection (UTI +/- pneumonia) * perdomo obstruction? * other?? * perdomo catheter exchanged in ER * trial of IVFs * antibiotics for presumed UTI * follow trend of repeat labs and UOP (2) Stage 3 chronic kidney disease: Code(s): N18.30 - Chronic kidney disease, stage 3 unspecified Status: Chronic Assessment and Plan: * baseline creatinine seems to run ~ 1.5 - 2.0mg/dl * this causes him to fluctuate between CKD stage 3A and stage 3B * he has fluctuated to the high 2ish range on previous hospitalizations * presumably secondary to hypertension, DM, vascular disease, BPH, neurogenic bladder, recurrent UTIs, and age-change (3) UTI (urinary tract infection): Qualifiers: Hematuria presence: without hematuria Urinary tract infection type: a cute cystitis Qualified Code(s): N30.00 - Acute cystitis without hematuria Code(s): N39.0 - Urinary tract infection, site not specified Status: Acute Assessment and Plan: * admission UA highly suggestive: * complicated by indwelling perdomo catheter * follow culture data * on antibiotics (4) Pneumonia: Qualifiers: Laterality: left Lung location: lower lobe of lung Pneumonia type: due to unspecified organism Qualified Code(s): J18.9 - Pneumonia, unspecified organism Code(s): J18.9 - Pneumonia, unspecified organism Status: Acute Assessment and Plan: * admission CXR suggestive * follow culture data * no respiratory distress and no oxygen requirements * continue supportive therapy (5) Neurogenic bladder: Code(s): N31.9 - Neuromuscular dysfunction of bladder, unspecified Status: Acute Assessment and Plan: * chronic perdomo catheter * exchange in ER on admission * Urology recommendations noted regarding renal ultrasound findings (6) Anemia: Qualifiers: Anemia type: iron deficiency Iron deficiency anemia type: chronic blood loss Qualified Code(s): D50.0 - Iron deficiency anemia secondary to blood loss (chronic) Code(s): D64.9 - Anemia, unspecified Status: Acute Assessment and Plan: * presumably due to LEANDRO, CKd, acute illness/infection, and IVFs * follow trend of H/H (7) Hypertension: Qualifiers: Hypertension type: primary hypertension Qualified Code(s): I10 - Essential (primary) hypertension Code(s): I10 - Essential (primary) hypertension Status: Chronic Assessment and Plan: * reasonable control at this time * follow trend of hemodynamics (8) Diabetes: Qualifiers: Diabetes mellitus complication status: without complication Diabetes mellitus terminal operations supervisor insulin use: without terminal operations supervisor use Diabetes mellitus type: t ype 2 Qualified Code(s): E11.9 - Type 2 diabetes mellitus without complications Code(s): E11.9 - Type 2 diabetes mellitus without complications Status: Chronic Assessment and Plan: * follow accu-cheks * glycemic control per hospitalist I will continue to follow the patient with you while he remains hospitalized and make further recommendations as deemed necessary. Thank you for allowing me to participate in the care of this patient. L History of Present Illness Reason for Consult Consult date: 05/16/25 Reason for consult: acute renal failure (on chronic kidney disease) Chief Complaint Chief complaint: acute kidney failure,pneumonia History of Present Illness Narrative: The patient is a 70-year-old male with a past medical history as outlined below presented to [facility] Emergency Room from his nursing facility for further evaluation of abnormal labs. The patient himself is unclear of what blood work was abnormal. In spite of these laboratory abnormalities, he does not appear to have any acute symptoms or problems related to it as he reports that he feels reasonably well. he denies any acute symptoms with regard to fevers, chills, nausea, vomiting, diarrhea, abdominal pain, body aches, chest pain, shortness of breath, dizziness, lightheadedness, or palpitations. He does admit to a chronic/ intermittent cough that is nonproductive but he feels this somewhat of a baseline issue. He otherwise has no acute complaints during his ER evaluation. Workup and evaluation emergency room demonstrated the patient be hemodynamically stable and afebrile. Routine testing demonstrated white blood cell count of 13.0, hemoglobin 8.8, INR 1.4, BUN of 89 with an associated creatinine of 6.24, glucose 151, lactic acid 1.9, CRP 13.3, CPK 28, and a urinalysis that was somewhat suggestive of a possible urinary tract infection. His chest x-ray showed a left basilar atelectasis versus pneumonia as well. Presumably, his abnormal renal function is what led to his transfer to the ER given this is a marked change from his baseline creatinine about a month ago. A renal ultrasound was done which demonstrated normal kidneys without hydronephrosis but with mild thickening of the bladder wall with irregular mucosal surface. After appropriate cultures were obtained, he was initiated on antibiotics for his possible pneumonia and urinary tract infection as well as IV fluids for his acute kidney injury as well. He was subsequently admitted to the hospital for further evaluation and therapy. Since his admission, his creatinine is only slightly improved from 6.24 to 6.06mg/dl. However, he does appear to have fairly good urine output with IV fluids that have been initiated. Renal consultation was requested due to his acute kidney injury/acute renal failure on top of his baseline chronic kidney disease. From review his records, his baseline creatinine seems to fluctuate to extremes particularly with acute hospitalizations however his creatinine does seem to average out around 1.5 - 2.0 mg/dL although there have been times when his creatinine has been as high as 2.7 mg/dL, although, as mentioned, these higher creatinine values tend to correlate with acute hospitalizations. His baseline chronic kidney disease likely due to a combination of factors including hypertension, diabetes, vascular disease, neurogenic bladder with the need for a chronic Perdomo catheter, BPH, recurrent urinary tract infections, and age-related change. Currently, at the time my evaluation, he appears to be in no acute distress. Review of Systems 2 Review of Systems: As per HPI. [facility] Past Medical History Medical History Chronic anemia PAF (paroxysmal atrial fibrillation) Combined systolic and diastolic congestive heart failure CKD (chronic kidney disease) Anxiety Arthritis TIA (transient ischemic attack) CVA (cerebral vascular accident) Per MRI on 03/20/2024, old infarcts in the bilateral basal ganglia Indwelling Perdomo catheter present Non-insulin dependent diabetes mellitus Normocytic anemia Hyperlipidemia Neurogenic bladder Obstructive uropathy BPH loc w urin obs/LUTS Hypertension Surgical History Surgical History History of appendectomy Family History Family History Father Cerebrovascular accident Mother Alcohol abuse Alcohol abuse by patient's mother Heart attack Hypertension Social History Social History Social History: Has a daughter Smoking packs per day: 1 Smoking cigarettes per day: 20.0 Years smoked: 20 Smoking pack-years: 20.00 Smoking status: Current every day smoker Second hand tobacco smoke exposure: Yes Additional smoking assessment comments: pt states he started smoking when he got at the age of 39 Alcohol intake: former Drinks per week: 1 Alcohol use details: couple times a week (happy hour) Substance use: current Substance use type: marijuana Other substance usage details: smokes marijuana when friends bring it to him Last use: 04/04/25 Do You Feel Safe in your Home?: Yes Lack of Transportation: No Lack of Food: Never True Current Housing: I Have Housing Concerned About Future Housing: No Difficulty Paying Gas/Electric Bills: No Difficulty Paying for Meds: No Currently Unemployed: No Education: High School Diploma/GED Difficulty w/ Childcare or Family Care: No Living arrangements: assisted living Spiritual care concerns: No Meds Home Medications and Allergies Home Medications ?Medication ?Instructions ?Recorded ?Confirmed ?Type mirtazapine 15 mg tablet (Remeron) 15 mg feeding tube HS #30 tabs 10/17/24 05/15/25 Rx apixaban 5 mg tablet 5 mg PO BID 05/15/25 05/15/25 History atorvastatin 40 mg tablet 40 mg PO DAILY 05/15/25 05/15/25 History finasteride 5 mg tablet (Proscar) 5 mg PO QAM 05/15/25 05/15/25 History metoprolol tartrate 50 mg tablet 50 mg PO Q12HR 05/15/25 05/15/25 History Allergies Allergy/AdvReac Type Severity Reaction Status Date / Time No Known Allergies Allergy Mild Verified 05/15/25 14:10 Vital Signs Vital Signs Temp Pulse Resp BP Pulse Ox O2 Del Method 05/16/25 13:00 97.6 F 67 18 165/71 H 100 05/16/25 08:32 80 05/16/25 08:00 Room Air 05/16/25 05:22 97.9 F 74 16 179/88 H 98 Exam 2 Narrative: GENERAL APPEARANCE: elderly male in no acute distress HEENT: normocephalic, atraumatic, normal conjunctiva and sclera, nares patient NECK: no lymphadenopathy, thyromegaly, or JVD MOUTH: normal lips, teeth, and gums CARDIOVASCULAR: RRR, normal S1 and S2, no rub RESPIRATORY: clear to auscultation bilaterally ABDOMEN: soft, nontender, nondistended, positive bowel sounds present EXTREMITIES: no evidence of cyanosis, clubbing, or edema NEUROLOGICAL: alert and oriented x 3; CN II - XII intact bilaterally; no focal deficits noted Results Lab Results 05/17/25 09:12 05/17/25 09:12 Lab results: Most recent lab results Calcium 8.2 mg/dL (8.4-10.2) L 05/16/25 08:21 Phosphorus 6.5 mg/dL (2.5-4.5) H 05/16/25 08:21 Magnesium 1.3 mg/dL (1.6-2.3) L 05/16/25 08:21 Urine Creatinine 18.9 mg/dL 05/15/25 18:40 Urine Creatinine Cancelled 05/15/25 18:40
--- NOTE | 2025-05-16 13:53 | PM.IMPN ---
Progress Note: A&P Assessment and Plan (1) Acute kidney injury superimposed on CKD: Code(s): N17.9 - Acute kidney failure, unspecified; N18.9 - Chronic kidney disease, unspecified Status: Acute Assessment and Plan: Patient recently admitted here after he was found down and has no recollection of events. He was living at home independently. He was treated for a UTI, started on ceftriaxone. UA grew Enterobacter susceptible to Bactrim, discharged with same. UA today equivocal for infection, however started on antibiotics. For output in the ED despite Perdomo exchange may indicate there is a dehydration component. Will check labs and renal ultrasound. IV fluids. Nephrology consulted. Renal ultrasound showed irregular mucosal surface of the bladder, could be related to chronic outlet obstruction or malignancy. No prior cystoscopy on file, will consult Urology for evaluation for possible need for cystoscopy. as per urology continue perdomo watch UO and BMP dc fluids now await UC (2) Pneumonia: Qualifiers: Laterality: left Lung location: lower lobe of lung Pneumonia type: due to unspecified organism Qualified Code(s): J18.9 - Pneumonia, unspecified organism Code(s): J18.9 - Pneumonia, unspecified organism Status: Acute Assessment and Plan: - CXR: Left basilar atelectasis versus pneumonia. - complicating/risk factors: Recent hospitalization - started on ceftriaxone and azithromycin, exchanged it to cefepime and doxycycline. -pt now on RA (3) UTI (urinary tract infection): Qualifiers: Urinary tract infection type: acute cystitis Hematuria presence: without hematuria Qualified Code(s): N30.00 - Acute cystitis without hematuria Code(s): N39.0 - Urinary tract infection, site not specified Status: Acute Assessment and Plan: - await UC - previous micro reviewed, Enterobacter on 04/19 that was resistant to Augmentin and/Ancef, intermediate to Macrobid. Ceftriaxone sensitivities not listed. - started on cefepime on 05/15 (4) Neurogenic bladder: Code(s): N31.9 - Neuromuscular dysfunction of bladder, unspecified Status: Acute Assessment and Plan: - chronic Perdomo, exchanged today on 05/15 follow up cystoscopy OPD (5) Diabetes: Qualifiers: Diabetes mellitus type: type 2 Diabetes mellitus terminal block assembler insulin use: without terminal block assembler use Diabetes mellitus complication status: without complication Qualified Code(s): E11.9 - Type 2 diabetes mellitus without complications Code(s): E11.9 - Type 2 diabetes mellitus without complications Status: Chronic Assessment and Plan: -- CLAUDIA bynum - A1C 6.7% in September of 2024, updating (6) Hypertension: Qualifiers: Hypertension type: primary hypertension Qualified Code(s): I10 - Essential (primary) hypertension Code(s): I10 - Essential (primary) hypertension Status: Chronic Assessment and Plan: - chronic, currently 132/75 - continue home medications: Metoprolol Plan DVT eliquis code DNR Subjective Date/time seen: 05/16/25 13:53 Interval history: 70 y/o M with PMH of of CVA, paroxysmal AFib, CKD, chronic anemia, neurogenic bladder with chronic indwelling Perdomo, hyperlipidemia, BPH, and hypertension presents here with acute renal failure Pt is improving slowly mild cough chronic perdomo in situ for neurogenic bladder admitted for LEANDRO PNA, UTI Review of Systems Review of Systems: mild cough pt feels weak Exam Const: General: comfortable and no acute distress Other: , male, elderly, chronically ill-appearing HENMT: Face/Nose/Sinus: Normal nares present Mouth: Yes moist mucous membranes Eyes: General: appearance normal, both eyes and all related structures Sclera: sclerae normal Pupils: Equal, round and reactive pupils present EOM: EOMs intact bilaterally Resp: Effort & Inspection: normal respiratory effort Auscultation: clear to auscultation bilaterally Cardio: Rate: regular rate Rhythm: regular rhythm Other: S1-S2 present without murmur, rub, ectopy GI: Other: Abdomen soft, nondistended, nontender. Normoactive bowel sounds in all quadrants. : General: Yes bladder normal to palpation Urinary Catheter: Urinary Catheter: patent and draining (Minimal output) Skin: General skin exam: normal color and no rashes or lesions noted Wounds: no wounds Neuro: Speech: normal speech Motor exam (neuro): 5/5 motor strength present throughout Sensory Exam: normal sensation Other: A&O x4 Extrem: General: normal to inspection Psych: Mental Status: mental status grossly normal Affect: normal affect Other: Good insight and judgment, pleasant Objective Data Vital Signs Vital Signs: Vital Signs - 24 hr 05/15/25 14:30 05/15/25 17:43 05/15/25 20:00 Temperature 36.1 C L Pulse Rate 65 Respiratory Rate 16 Blood Pressure 145/67 H Pulse Oximetry 100 Oxygen Delivery Room Air Room Air 05/15/25 21:25 05/15/25 23:06 05/16/25 05:22 Temperature 37.4 C 36.6 C Pulse Rate 68 65 74 Respiratory Rate 16 16 Blood Pressure 160/75 H 179/88 H Pulse Oximetry 99 98 Oxygen Delivery 05/16/25 08:00 05/16/25 08:32 Temperature Pulse Rate 80 Respiratory Rate Blood Pressure Pulse Oximetry Oxygen Delivery Room Air Intake/Output Intake/Output: Intake & Output 05/13/25 05/14/25 05/15/25 05/16/25 23:59 23:59 23:59 23:59 Intake Total 2340 1487 Output Total 1050 Balance 2340 437 Meds/Results Medications: Active Medications Generic Name Dose Route Start Last Admin Trade Name Freq PRN Reason Stop Dose Admin Acetaminophen 650 mg 05/15/25 13:24 05/15/25 19:50 Acetaminophen 325 Mg Tablet PO 650 mg Q6H PRN Administration Mild Pain (1-3) or Fever Apixaban 5 mg 05/15/25 22:30 05/16/25 08:32 Apixaban 5 Mg Tablet PO 5 mg Q12HR BASSEM Administration Atorvastatin Calcium 40 mg 05/16/25 09:00 05/16/25 08:32 Atorvastatin 40 Mg Tablet PO 40 mg DAILY BASSEM Administration Benzonatate 100 mg 05/15/25 13:24 Benzonatate 100 Mg Capsule PO TID PRN Cough Dextrose 12.5 gm 05/15/25 13:27 Dextrose 50% 25 Gm/50 Ml Syringe IV PUSH PRN PRN Hypoglycemia Protocol Doxycycline Hyclate 100 mg 05/15/25 21:00 05/16/25 08:32 Doxycycline Hyclate 100 Mg Tablet PO 05/22/25 20:59 100 mg Q12HR BASSEM Administration Finasteride 5 mg 05/16/25 09:00 05/16/25 08:32 Finasteride 5 Mg Tablet PO 5 mg QAM BASSEM Administration Glucagon 1 mg 05/15/25 13:27 Glucagon For Inj 1 Mg Vial IM PRN PRN Hypoglycemia Protocol Glucose 15 gm 05/15/25 13:27 Glucose Oral Gel 15 Gm Of Glucse In 37.5 Gm Tube PO PRN PRN Hypoglycemia Protocol Guaifenesin 600 mg 05/15/25 13:50 05/16/25 08:32 Guaifenesin 12 Hr 600 Mg Tabcr PO 600 mg Q12HR BASSEM Administration Cefepime HCl 1 gm in 50 mls @ 100 mls/hr 05/15/25 18:00 05/16/25 05:13 Maxipime 1 Gm/Ns 50 Ml IVPB 100 mls/hr Q12H BASSEM Administration Dextrose 1,000 mls @ 100 mls/hr 05/15/25 13:27 Dextrose 5% 1,000 Ml IVPB PRN PRN Hypoglycemia Protocol Insulin Aspart 2 - 5 units 05/15/25 17:00 05/16/25 11:58 Insulin Aspart (*Bkc) 100 Units/Ml SUB-Q Not Given TIDWM BASSEM Protocol Metoprolol Tartrate 50 mg 05/15/25 22:30 05/16/25 08:32 Metoprolol Tartrate 50 Mg Tab PO 50 mg Q12HR BASSEM Administration Mirtazapine 15 mg 05/15/25 22:30 05/15/25 23:06 Mirtazapine 15 Mg Tablet PO 15 mg HS BASSEM Administration Radiology Results: ITS Impressions Chest X-Ray 05/15/25 12:01 IMPRESSION: Left basilar atelectasis versus pneumonia. Renal Ultrasound 05/15/25 14:00 IMPRESSION: 1. Normal kidneys without hydronephrosis. 2. Mild thickening of the bladder wall with irregular mucosal surface, consistent which is somewhat limited by partially decompressed state. Differential would include cystitis either acute or chronic which is suggested by the appearance on prior CT, sequela of chronic outlet obstruction or malignancy. Correlate with urinalysis and clinical history. Consider cystoscopy for further evaluation as clinically indicated. Labs Labs: Laboratory Results - last 24 hr 05/15/25 05/15/25 05/15/25 13:50 16:33 18:40 WBC RBC Hgb Hct MCV MCH MCHC RDW Plt Count MPV Immature Gran % (Auto) Neut % (Auto) Lymph % (Auto) Chambers % (Auto) Eos % (Auto) Baso % (Auto) Lymph # (Auto) Chambers # (Auto) Eos # (Auto) Baso # (Auto) Abs Immat Gran (auto) Absolute Neuts (auto) Absolute Nucleated RBC Nucleated RBC % Sodium Potassium Chloride Carbon Dioxide Anion Gap BUN Creatinine Estim Creat Clear Calc Estimated GFR Glucose POC Capillary Glucose 88 Hemoglobin A1c Calcium Phosphorus Magnesium Total Bilirubin AST ALT Alkaline Phosphatase Total Protein Albumin Urine Eosinophils None seen U Random Total Protein 58 Ur Random Sodium 79 Ur Random Urea 207 Urine Creatinine 18.9 Protein/Creat Ratio 2 Nasal MRSA (PCR) Not detected 05/15/25 05/15/25 05/16/25 18:40 19:57 07:29 WBC RBC Hgb Hct MCV MCH MCHC RDW Plt Count MPV Immature Gran % (Auto) Neut % (Auto) Lymph % (Auto) Chambers % (Auto) Eos % (Auto) Baso % (Auto) Lymph # (Auto) Chambers # (Auto) Eos # (Auto) Baso # (Auto) Abs Immat Gran (auto) Absolute Neuts (auto) Absolute Nucleated RBC Nucleated RBC % Sodium Potassium Chloride Carbon Dioxide Anion Gap BUN Creatinine Estim Creat Clear Calc Estimated GFR Glucose POC Capillary Glucose 135 H 71 Hemoglobin A1c Calcium Phosphorus Magnesium Total Bilirubin AST ALT Alkaline Phosphatase Total Protein Albumin Urine Eosinophils U Random Total Protein Ur Random Sodium Ur Random Urea Urine Creatinine Cancelled Protein/Creat Ratio 2 3.07 H Nasal MRSA (PCR) 05/16/25 05/16/25 08:21 11:46 WBC 10.4 H RBC 3.04 L Hgb 9.0 L Hct 28.9 L MCV 95.1 MCH 29.6 MCHC 31.1 L RDW 13.7 Plt Count 271 MPV 8.1 Immature Gran % (Auto) 1.6 H Neut % (Auto) 70.6 Lymph % (Auto) 17.3 L Chambers % (Auto) 6.0 Eos % (Auto) 4.2 Baso % (Auto) 0.3 Lymph # (Auto) 1.80 Chambers # (Auto) 0.6 Eos # (Auto) 0.4 H Baso # (Auto) 0.0 Abs Immat Gran (auto) 0.17 H Absolute Neuts (auto) 7.3 H Absolute Nucleated RBC 0.000 Nucleated RBC % 0.0 Sodium 138 Potassium 3.9 Chloride 106 Carbon Dioxide 18 L Anion Gap 14 H BUN 83 H Creatinine 6.06 H Estim Creat Clear Calc 11 Estimated GFR 9 L Glucose 93 POC Capillary Glucose 115 H Hemoglobin A1c 5.7 Calcium 8.2 L Phosphorus 6.5 H Magnesium 1.3 L Total Bilirubin 0.6 AST 29 ALT 26 Alkaline Phosphatase 133 H Total Protein 6.6 Albumin 2.9 L Urine Eosinophils U Random Total Protein Ur Random Sodium Ur Random Urea Urine Creatinine Protein/Creat Ratio 2 Nasal MRSA (PCR)
[2025-05-16 14:00] VITALS: BP 165/71; PULSE 67; RESP 18; TEMP 36.4; O2SAT 100
[2025-05-16 21:03] VITALS: PULSE 70
[2025-05-16] MEDS: MIRTAZAPINE 15 MG TABLET PO (21:04)
[2025-05-16 21:08] VITALS: BP 157/70; PULSE 73; RESP 18; TEMP 36.7; O2SAT 98
[2025-05-17] MEDS: CEFEPIME 1 GM/NS 50 ML 1 GM/50 ML BAG IVPB ×2 (05:42→17:16)
[2025-05-17 05:53] VITALS: BP 153/86; PULSE 76; RESP 18; TEMP 36.6; O2SAT 96
[2025-05-17 09:00] VITALS: PULSE 73
[2025-05-17] MEDS: METOPROLOL TARTRATE 50 MG TAB PO ×2 (09:00→20:35)
[2025-05-17] MEDS: guaiFENesin 12 HR 600 MG TABCR PO ×2 (09:01→20:36)
[2025-05-17] MEDS: APIXABAN 5 MG TABLET PO ×2 (09:01→20:36)
[2025-05-17] MEDS: ATORVASTATIN 40 MG TABLET PO (09:01)
[2025-05-17] MEDS: DOXYCYCLINE HYCLATE 100 MG TABLET PO ×2 (09:01→20:37)
[2025-05-17] MEDS: FINASTERIDE 5 MG TABLET PO (09:01)
[2025-05-17 09:36] LABS: Hematocrit 27.7 % (42.0-52.0); Hemoglobin 8.6 g/dL (14.0-18.0); Mean Corpuscular HGB Conc 31.0 g/dl (32-36); Mean Corpuscular Hemoglobin 29.5 pg (26-34); Mean Corpuscular Volume 94.9 fl (80-100); Platelet Count Result 286 k/mm3 (150-375); Red Blood Count 2.92 M/mm3 (4.6-6.20); White Blood Count 11.5 K/mm3 (4.5-10.0)
[2025-05-17 09:48] LABS: Anion Gap 15 mmol/L (4-12); Blood Urea Nitrogen 88 mg/dL (9-20); Calcium 8.3 mg/dL (8.4-10.2); Carbon Dioxide 18 mmol/L (22-30); Chloride 103 mmol/L (98-107); Estimated CRCL calculation 12 ml/min; Estimated Glomerular Filt Rate 10; Glucose 130 mg/dL (65-110); Potassium 4.3 mmol/L (3.4-5.0); Sodium 136 mmol/L (137-145)
--- NOTE | 2025-05-17 12:58 | PM.IMPN ---
Progress Note: A&P Assessment and Plan (1) Acute kidney injury superimposed on CKD: Code(s): N17.9 - Acute kidney failure, unspecified; N18.9 - Chronic kidney disease, unspecified Status: Acute Assessment and Plan: Patient recently admitted here after he was found down and has no recollection of events. He was living at home independently. He was treated for a UTI, started on ceftriaxone. UA grew Enterobacter susceptible to Bactrim, discharged with same. UA today equivocal for infection, however started on antibiotics. For output in the ED despite Perdomo exchange may indicate there is a dehydration component. Will check labs and renal ultrasound. IV fluids. Nephrology consulted. Renal ultrasound showed irregular mucosal surface of the bladder, could be related to chronic outlet obstruction or malignancy. No prior cystoscopy on file, will consult Urology for evaluation for possible need for cystoscopy. as per urology continue perdomo watch UO and BMP dc fluids now await 05/17: Creatinine still elevated, 5.56, improved slightly Nose on fluid overload Appreciate consultation of urologist and manager express Follow-up recommendations (2) Pneumonia: Qualifiers: Laterality: left Lung location: lower lobe of lung Pneumonia type: due to unspecified organism Qualified Code(s): J18.9 - Pneumonia, unspecified organism Code(s): J18.9 - Pneumonia, unspecified organism Status: Acute Assessment and Plan: - CXR: Left basilar atelectasis versus pneumonia. - complicating/risk factors: Recent hospitalization - started on ceftriaxone and azithromycin, exchanged it to cefepime and doxycycline. -pt now on RA Patient still has cough, denies dyspnea Continue current antibiotics (3) UTI (urinary tract infection): Qualifiers: Urinary tract infection type: acute cystitis Hematuria presence: without hematuria Qualified Code(s): N30.00 - Acute cystitis without hematuria Code(s): N39.0 - Urinary tract infection, site not specified Status: Acute Assessment and Plan: - previous micro reviewed, Enterobacter on 04/19 that was resistant to Augmentin and/Ancef, intermediate to Macrobid. Ceftriaxone sensitivities not listed. - started on cefepime on 05/15 Urine culture grows Gram-negative baseline, (4) Neurogenic bladder: Code(s): N31.9 - Neuromuscular dysfunction of bladder, unspecified Status: Acute Assessment and Plan: - chronic Perdomo, exchanged today on 05/15 follow up cystoscopy OPD (5) Diabetes: Qualifiers: Diabetes mellitus type: type 2 Diabetes mellitus servicing manager insulin use: without servicing manager use Diabetes mellitus complication status: without complication Qualified Code(s): E11.9 - Type 2 diabetes mellitus without complications Code(s): E11.9 - Type 2 diabetes mellitus without complications Status: Chronic Assessment and Plan: -- CLAUDIA bynum - A1C 6.7% in September of 2024, updating (6) Hypertension: Qualifiers: Hypertension type: primary hypertension Qualified Code(s): I10 - Essential (primary) hypertension Code(s): I10 - Essential (primary) hypertension Status: Chronic Assessment and Plan: - chronic, currently 132/75 - continue home medications: Metoprolol Plan DVT eliquis code DNR Subjective Date/time seen: 05/17/25 12:58 Interval history: Saw exam patient, patient feels better, has cough without dyspnea Denies chest pain Exam Narrative: GENERAL: Pleasant, in no acute distress. Well-nourished. - EYES: EOMI. Anicteric. - HENT: Moist mucous membranes. - LUNGS: Clear to auscultation bilaterally, no wheezing, rhonchi, or rales. - CARDIOVASCULAR: Regular rate and rhythm. No murmur. No JVD. - ABDOMEN: Soft, non-tender and non-distended. No palpable masses. - EXTREMITIES: No edema. Peripheral pulses 2+. Non-tender. - NEUROLOGIC: No focal neurological deficits. CN II-XII grossly intact. - PSYCHIATRIC: Awake, Alert and oriented x 3. Appropriate mood and affect. - SKIN: No rashes or lesions. Warm. - LYMPH: No cervical lymphadenopathy. Objective Data Vital Signs Vital Signs: Vital Signs - 24 hr 05/16/25 14:00 05/16/25 21:03 05/16/25 21:08 Temperature 97.6 F 98.0 F Pulse Rate 67 70 73 Respiratory Rate 18 18 Blood Pressure 165/71 H 157/70 H Pulse Oximetry 100 98 Oxygen Delivery 05/17/25 05:53 05/17/25 09:00 05/17/25 09:01 Temperature 97.8 F Pulse Rate 76 73 Respiratory Rate 18 Blood Pressure 153/86 H Pulse Oximetry 96 Oxygen Delivery Room Air Intake/Output Intake/Output: Intake & Output 05/14/25 05/15/25 05/16/25 05/17/25 23:59 23:59 23:59 23:59 Intake Total 2340 2787 950 Output Total 2800 750 Balance 2340 -13 200 Meds/Results Medications: Active Medications Generic Name Dose Route Start Last Admin Trade Name Freq PRN Reason Stop Dose Admin Acetaminophen 650 mg 05/15/25 13:24 05/15/25 19:50 Acetaminophen 325 Mg Tablet PO 650 mg Q6H PRN Administration Mild Pain (1-3) or Fever Apixaban 5 mg 05/15/25 22:30 05/17/25 09:01 Apixaban 5 Mg Tablet PO 5 mg Q12HR BASSEM Administration Atorvastatin Calcium 40 mg 05/16/25 09:00 05/17/25 09:01 Atorvastatin 40 Mg Tablet PO 40 mg DAILY BASSEM Administration Benzonatate 100 mg 05/15/25 13:24 Benzonatate 100 Mg Capsule PO TID PRN Cough Dextrose 12.5 gm 05/15/25 13:27 Dextrose 50% 25 Gm/50 Ml Syringe IV PUSH PRN PRN Hypoglycemia Protocol Doxycycline Hyclate 100 mg 05/15/25 21:00 05/17/25 09:01 Doxycycline Hyclate 100 Mg Tablet PO 05/22/25 20:59 100 mg Q12HR BASSEM Administration Finasteride 5 mg 05/16/25 09:00 05/17/25 09:01 Finasteride 5 Mg Tablet PO 5 mg QAM BASSEM Administration Glucagon 1 mg 05/15/25 13:27 Glucagon For Inj 1 Mg Vial IM PRN PRN Hypoglycemia Protocol Glucose 15 gm 05/15/25 13:27 Glucose Oral Gel 15 Gm Of Glucse In 37.5 Gm Tube PO PRN PRN Hypoglycemia Protocol Guaifenesin 600 mg 05/15/25 13:50 05/17/25 09:01 Guaifenesin 12 Hr 600 Mg Tabcr PO 600 mg Q12HR BASSEM Administration Cefepime HCl 1 gm in 50 mls @ 100 mls/hr 05/15/25 18:00 05/17/25 05:42 Maxipime 1 Gm/Ns 50 Ml IVPB 100 mls/hr Q12H BASSEM Administration Dextrose 1,000 mls @ 100 mls/hr 05/15/25 13:27 Dextrose 5% 1,000 Ml IVPB PRN PRN Hypoglycemia Protocol Insulin Aspart 2 - 5 units 05/15/25 17:00 05/17/25 11:55 Insulin Aspart (*Bkc) 100 Units/Ml SUB-Q Not Given T[facility] Protocol Metoprolol Tartrate 50 mg 05/15/25 22:30 05/17/25 09:00 Metoprolol Tartrate 50 Mg Tab PO 50 mg Q12HR BASSEM Administration Mirtazapine 15 mg 05/15/25 22:30 05/16/25 21:04 Mirtazapine 15 Mg Tablet PO 15 mg HS BASSEM Administration Radiology Results: ITS Impressions Chest X-Ray 05/15/25 12:01 IMPRESSION: Left basilar atelectasis versus pneumonia. Renal Ultrasound 05/15/25 14:00 IMPRESSION: 1. Normal kidneys without hydronephrosis. 2. Mild thickening of the bladder wall with irregular mucosal surface, consistent which is somewhat limited by partially decompressed state. Differential would include cystitis either acute or chronic which is suggested by the appearance on prior CT, sequela of chronic outlet obstruction or malignancy. Correlate with urinalysis and clinical history. Consider cystoscopy for further evaluation as clinically indicated. Labs Labs: Laboratory Results - last 24 hr 05/16/25 05/16/25 05/17/25 16:56 20:07 07:25 WBC RBC Hgb Hct MCV MCH MCHC RDW Plt Count MPV Sodium Potassium Chloride Carbon Dioxide Anion Gap BUN Creatinine Estim Creat Clear Calc Estimated GFR Glucose POC Capillary Glucose 108 H 119 H 77 Calcium 05/17/25 05/17/25 09:12 11:39 WBC 11.5 H RBC 2.92 L Hgb 8.6 L Hct 27.7 L MCV 94.9 MCH 29.5 MCHC 31.0 L RDW 13.6 Plt Count 286 MPV 8.4 Sodium 136 L Potassium 4.3 Chloride 103 Carbon Dioxide 18 L Anion Gap 15 H BUN 88 H Creatinine 5.56 H Estim Creat Clear Calc 12 Estimated GFR 10 L Glucose 130 H POC Capillary Glucose 126 H Calcium 8.3 L
[2025-05-17 14:00] VITALS: BP 143/72; PULSE 64; RESP 18; TEMP 36.2; O2SAT 100
--- NOTE | 2025-05-17 15:52 | P.PNNP_ITS ---
Progress Note: A&P Assessment and Plan (1) Acute kidney injury: Code(s): N17.9 - Acute kidney failure, unspecified Status: Acute Assessment and Plan: * as noted by admission labs * evaluation to date noted: * renal ultrasound w/o acute obstruction * UA suggestive of infection * urine electrolytes non-prerenal * urine eosinophils * proteinuria noted * CPK low/normal * etiology not entirely clear - possibly related to: * prerenal factors * infection (UTI +/- pneumonia) * perdomo obstruction? * other?? * perdomo catheter exchanged in ER * off IVFs. getting antibiotics for presumed UTI and pneumonia. * creatinine is a bit better but still very high (2) Stage 3 chronic kidney disease: Code(s): N18.30 - Chronic kidney disease, stage 3 unspecified Status: Chronic Assessment and Plan: * baseline creatinine seems to run ~ 1.5 - 2.0mg/dl * this causes him to fluctuate between CKD stage 3A and stage 3B * he has fluctuated to the high 2ish range on previous hospitalizations * presumably secondary to hypertension, DM, vascular disease, BPH, neurogenic bladder, recurrent UTIs, and age-change * smoking probably playing a role as well. he saysI have a carton of cigarettes at home and I am going to start smoking as soon as I can He is not interested in quitting (3) UTI (urinary tract infection): Qualifiers: Urinary tract infection type: acute cystitis Hematuria presence: without hematuria Qualified Code(s): N30.00 - Acute cystitis without hematuria Code(s): N39.0 - Urinary tract infection, site not specified Status: Acute Assessment and Plan: * admission UA highly suggestive: * complicated by indwelling perdomo catheter * follow culture data * on cefipime (4) Pneumonia: Qualifiers: Laterality: left Lung location: lower lobe of lung Pneumonia type: due to unspecified organism Qualified Code(s): J18.9 - Pneumonia, unspecified organism Code(s): J18.9 - Pneumonia, unspecified organism Status: Acute Assessment and Plan: * admission CXR suggestive * follow culture data * pt should stop smoking * no respiratory distress and no oxygen requirements * continue supportive therapy (5) Neurogenic bladder: Code(s): N31.9 - Neuromuscular dysfunction of bladder, unspecified Status: Acute Assessment and Plan: * chronic perdomo catheter * exchange in ER on admission * Urology recommendations noted regarding renal ultrasound findings (6) Anemia: Qualifiers: Anemia type: iron deficiency Iron deficiency anemia type: chronic blood loss Qualified Code(s): D50.0 - Iron deficiency anemia secondary to blood loss (chronic) Code(s): D64.9 - Anemia, unspecified Status: Acute Assessment and Plan: * presumably due to LEANDRO, CKd, acute illness/infection, and IVFs * hb up and down, now 8.6 (7) Hypertension: Qualifiers: Hypertension type: primary hypertension Qualified Code(s): I10 - Essential (primary) hypertension Code(s): I10 - Essential (primary) hypertension Status: Chronic Assessment and Plan: * bp 140s to 170s. * on metoprolol alone. * will add amlodipine * follow trend of hemodynamics (8) Diabetes: Qualifiers: Diabetes mellitus type: type 2 Diabetes mellitus shelter insulin use: without shelter use Diabetes mellitus complication status: without complication Qualified Code(s): E11.9 - Type 2 diabetes mellitus without complications Code(s): E11.9 - Type 2 diabetes mellitus without complications Status: Chronic Assessment and Plan: * follow accu-cheks * glycemic control per hospitalist Subjective Date/time seen: 05/17/25 15:52 Interval history: alert. coughing. feels okay otherwise Review of Systems Cardiovascular: Cardiovascular: Reports no additional cardiovascular complaints Respiratory: Respiratory: Reports no additional respiratory complaints Gastrointestinal: Gastrointestinal: Reports no additional gastrointestinal complaints Genitourinary: Genitourinary: Reports no additional male genitourinary complaints Exam Narrative: WDWN in NAD skin no rash head ncat lungs clear with distant bs throughout and some wheezing occasionally cor reg no rub abd BS+ nontender and soft ext no edema. Objective Data Vital Signs Vital Signs: Vital Signs - 24 hr 05/16/25 21:03 05/16/25 21:08 05/17/25 05:53 Temperature 98.0 F 97.8 F Pulse Rate 70 73 76 Respiratory Rate 18 18 Blood Pressure 157/70 H 153/86 H Pulse Oximetry 98 96 Oxygen Delivery 05/17/25 09:00 05/17/25 09:01 05/17/25 14:00 Temperature 97.2 F L Pulse Rate 73 64 Respiratory Rate 18 Blood Pressure 143/72 H Pulse Oximetry 100 Oxygen Delivery Room Air Intake/Output Intake/Output: Intake & Output 05/14/25 05/15/25 05/16/25 05/17/25 23:59 23:59 23:59 23:59 Intake Total 2340 2787 1310 Output Total 2800 750 Balance 2340 -13 560 Meds/Results Medications: Active Medications Generic Name Dose Route Start Last Admin Trade Name Freq PRN Reason Stop Dose Admin Acetaminophen 650 mg 05/15/25 13:24 05/15/25 19:50 Acetaminophen 325 Mg Tablet PO 650 mg Q6H PRN Administration Mild Pain (1-3) or Fever Apixaban 5 mg 05/15/25 22:30 05/17/25 09:01 Apixaban 5 Mg Tablet PO 5 mg Q12HR BASSEM Administration Atorvastatin Calcium 40 mg 05/16/25 09:00 05/17/25 09:01 Atorvastatin 40 Mg Tablet PO 40 mg DAILY BASSEM Administration Benzonatate 100 mg 05/15/25 13:24 Benzonatate 100 Mg Capsule PO TID PRN Cough Dextrose 12.5 gm 05/15/25 13:27 Dextrose 50% 25 Gm/50 Ml Syringe IV PUSH PRN PRN Hypoglycemia Protocol Doxycycline Hyclate 100 mg 05/15/25 21:00 05/17/25 09:01 Doxycycline Hyclate 100 Mg Tablet PO 05/22/25 20:59 100 mg Q12HR BASSEM Administration Finasteride 5 mg 05/16/25 09:00 05/17/25 09:01 Finasteride 5 Mg Tablet PO 5 mg QAM BASSEM Administration Glucagon 1 mg 05/15/25 13:27 Glucagon For Inj 1 Mg Vial IM PRN PRN Hypoglycemia Protocol Glucose 15 gm 05/15/25 13:27 Glucose Oral Gel 15 Gm Of Glucse In 37.5 Gm Tube PO PRN PRN Hypoglycemia Protocol Guaifenesin 600 mg 05/15/25 13:50 05/17/25 09:01 Guaifenesin 12 Hr 600 Mg Tabcr PO 600 mg Q12HR BASSEM Administration Cefepime HCl 1 gm in 50 mls @ 100 mls/hr 05/15/25 18:00 05/17/25 05:42 Maxipime 1 Gm/Ns 50 Ml IVPB 100 mls/hr Q12H BASSEM Administration Dextrose 1,000 mls @ 100 mls/hr 05/15/25 13:27 Dextrose 5% 1,000 Ml IVPB PRN PRN Hypoglycemia Protocol Insulin Aspart 2 - 5 units 05/15/25 17:00 05/17/25 11:55 Insulin Aspart (*Bkc) 100 Units/Ml SUB-Q Not Given TIDWM BASSEM Protocol Metoprolol Tartrate 50 mg 05/15/25 22:30 05/17/25 09:00 Metoprolol Tartrate 50 Mg Tab PO 50 mg Q12HR BASSEM Administration Mirtazapine 15 mg 05/15/25 22:30 05/16/25 21:04 Mirtazapine 15 Mg Tablet PO 15 mg HS BASSEM Administration Radiology Results: ITS Impressions Chest X-Ray 05/15/25 12:01 IMPRESSION: Left basilar atelectasis versus pneumonia. Renal Ultrasound 05/15/25 14:00 IMPRESSION: 1. Normal kidneys without hydronephrosis. 2. Mild thickening of the bladder wall with irregular mucosal surface, consistent which is somewhat limited by partially decompressed state. Differential would include cystitis either acute or chronic which is suggested by the appearance on prior CT, sequela of chronic outlet obstruction or ma lignancy. Correlate with urinalysis and clinical history. Consider cystoscopy for further evaluation as clinically indicated. Labs Labs: Laboratory Results - last 24 hr 05/15/25 05/16/25 05/16/25 10:59 16:56 20:07 WBC RBC Hgb Hct MCV MCH MCHC RDW Plt Count MPV Sodium Potassium Chloride Carbon Dioxide Anion Gap BUN Creatinine Estim Creat Clear Calc Estimated GFR Glucose POC Capillary Glucose 108 H 119 H Serum Osmolality 319 H Calcium 05/17/25 05/17/25 05/17/25 07:25 09:12 11:39 WBC 11.5 H RBC 2.92 L Hgb 8.6 L Hct 27.7 L MCV 94.9 MCH 29.5 MCHC 31.0 L RDW 13.6 Plt Count 286 MPV 8.4 Sodium 136 L Potassium 4.3 Chloride 103 Carbon Dioxide 18 L Anion Gap 15 H BUN 88 H Creatinine 5.56 H Estim Creat Clear Calc 12 Estimated GFR 10 L Glucose 130 H POC Capillary Glucose 77 126 H Serum Osmolality Calcium 8.3 L
[2025-05-17 20:32] VITALS: PULSE 72; RESP 14; O2SAT 100
[2025-05-17 20:35] VITALS: PULSE 72
[2025-05-17] MEDS: MIRTAZAPINE 15 MG TABLET PO (20:36)
[2025-05-17 21:30] VITALS: BP 158/63; PULSE 72; RESP 14; TEMP 36.5; O2SAT 100
[2025-05-18] MEDS: CEFEPIME 1 GM/NS 50 ML 1 GM/50 ML BAG IVPB ×2 (05:55→17:35)
[2025-05-18 06:00] VITALS: BP 164/71; PULSE 70; RESP 14; TEMP 36.4; O2SAT 98
[2025-05-18 07:17] LABS: Albumin Level 2.8 g/dL (3.5-5.1); Anion Gap 15 mmol/L (4-12); Blood Urea Nitrogen 83 mg/dL (9-20); Calcium 8.3 mg/dL (8.4-10.2); Carbon Dioxide 17 mmol/L (22-30); Chloride 103 mmol/L (98-107); Estimated CRCL calculation 12 ml/min; Estimated Glomerular Filt Rate 11; Glucose 83 mg/dL (65-110); Potassium 3.6 mmol/L (3.4-5.0); Sodium 135 mmol/L (137-145)
[2025-05-18 08:00] VITALS: PULSE 98; RESP 14; O2SAT 98
--- NOTE | 2025-05-18 09:35 | PM.IMPN ---
Progress Note: A&P Assessment and Plan (1) Acute kidney injury superimposed on CKD: Code(s): N17.9 - Acute kidney failure, unspecified; N18.9 - Chronic kidney disease, unspecified Status: Acute Assessment and Plan: Patient recently admitted here after he was found down and has no recollection of events. He was living at home independently. He was treated for a UTI, started on ceftriaxone. UA grew Enterobacter susceptible to Bactrim, discharged with same. UA today equivocal for infection, however started on antibiotics. For output in the ED despite Perdomo exchange may indicate there is a dehydration component. Will check labs and renal ultrasound. IV fluids. Nephrology consulted. Renal ultrasound showed irregular mucosal surface of the bladder, could be related to chronic outlet obstruction or malignancy. No prior cystoscopy on file, will consult Urology for evaluation for possible need for cystoscopy. as per urology continue perdomo watch UO and BMP dc fluids now await 05/17: Creatinine still elevated, 5.56, improved slightly Nose on fluid overload Appreciate consultation of urologist and supervisor microbiology technologists Plan is to continue current treatment monitor closely (2) Pneumonia: Qualifiers: Laterality: left Lung location: lower lobe of lung Pneumonia type: due to unspecified organism Qualified Code(s): J18.9 - Pneumonia, unspecified organism Code(s): J18.9 - Pneumonia, unspecified organism Status: Acute Assessment and Plan: - CXR: Left basilar atelectasis versus pneumonia. - complicating/risk factors: Recent hospitalization - started on ceftriaxone and azithromycin, exchanged it to cefepime and doxycycline. -pt now on RA Patient still has cough, denies dyspnea Continue current antibiotics Repeat chest x-ray in the morning. (3) UTI (urinary tract infection): Qualifiers: Urinary tract infection type: acute cystitis Hematuria presence: without hematuria Qualified Code(s): N30.00 - Acute cystitis without hematuria Code(s): N39.0 - Urinary tract infection, site not specified Status: Acute Assessment and Plan: - previous micro reviewed, Enterobacter on 04/19 that was resistant to Augmentin and/Ancef, intermediate to Macrobid. Ceftriaxone sensitivities not listed. - started on cefepime on 05/15 Urine culture grows Gram-negative baseline, Continue current medication. Wait for culture sensitivity report. (4) Neurogenic bladder: Code(s): N31.9 - Neuromuscular dysfunction of bladder, unspecified Status: Acute Assessment and Plan: - chronic Perdomo, exchanged today on 05/15 follow up cystoscopy OPD (5) Diabetes: Qualifiers: Diabetes mellitus type: type 2 Diabetes mellitus senior living insulin use: without keno terminal operator use Diabetes mellitus complication status: without complication Qualified Code(s): E11.9 - Type 2 diabetes mellitus without complications Code(s): E11.9 - Type 2 diabetes mellitus without complications Status: Chronic Assessment and Plan: -- CLAUDIA bynum - A1C 6.7% in September of 2024, updating (6) Hypertension: Qualifiers: Hypertension type: primary hypertension Qualified Code(s): I10 - Essential (primary) hypertension Code(s): I10 - Essential (primary) hypertension Status: Chronic Assessment and Plan: - chronic, currently 132/75 - continue home medications: Metoprolol Plan DVT eliquis code DNR Subjective Date/time seen: 05/18/25 09:35 Interval history: Pneumonia, UTI, renal failure Patient was seen during the morning rounds today. Patient is feeling better. No shortness of breath or chest pain. No abdominal pain, nausea, no vomiting. Mood stable. Review of Systems Review of Systems: mild cough pt feels weak All systems reviewed & are unremarkable except as noted in HPI and below Exam Narrative: GENERAL: Pleasant, in no acute distress. Well-nourished. - EYES: EOMI. Anicteric. - HENT: Moist mucous membranes. - LUNGS: Clear to auscultation bilaterally, no wheezing, rhonchi, or rales. - CARDIOVASCULAR: Regular rate and rhythm. No murmur. No JVD. - ABDOMEN: Soft, non-tender and non-distended. No palpable masses. - EXTREMITIES: No edema. Peripheral pulses 2+. Non-tender. - NEUROLOGIC: No focal neurological deficits. CN II-XII grossly intact. - PSYCHIATRIC: Awake, Alert and oriented x 3. Appropriate mood and affect. - SKIN: No rashes or lesions. Warm. - LYMPH: No cervical lymphadenopathy. Const: General: comfortable and no acute distress Other: , male, elderly, chronically ill-appearing HENMT: Face/Nose/Sinus: Normal nares present Mouth: Yes moist mucous membranes Eyes: General: appearance normal, both eyes and all related structures Sclera: sclerae normal Pupils: Equal, round and reactive pupils present EOM: EOMs intact bilaterally Resp: Effort & Inspection: normal respiratory effort Auscultation: clear to auscultation bilaterally Cardio: Rate: regular rate Rhythm: regular rhythm Other: S1-S2 present without murmur, rub, ectopy GI: Other: Abdomen soft, nondistended, nontender. Normoactive bowel sounds in all quadrants. : General: Yes bladder normal to palpation Urinary Catheter: Urinary Catheter: patent and draining (Minimal output) Skin: General skin exam: normal color and no rashes or lesions noted Wounds: no wounds Neuro: Cranial nerves: Yes Equal, round and reactive pupils present Speech: normal speech Motor exam (neuro): 5/5 motor strength present throughout Sensory Exam: normal sensation Other: A&O x4 Extrem: General: normal to inspection Psych: Mental Status: mental status grossly normal Affect: normal affect Other: Good insight and judgment, pleasant Objective Data Vital Signs Vital Signs: Vital Signs - 24 hr 05/17/25 14:00 05/17/25 20:32 05/17/25 20:35 Temperature 36.2 C L Pulse Rate 64 72 72 Respiratory Rate 18 14 Blood Pressure 143/72 H Pulse Oximetry 100 100 Oxygen Delivery Room Air 05/17/25 21:30 05/18/25 06:00 Temperature 36.5 C 36.4 C L Pulse Rate 72 70 Respiratory Rate 14 14 Blood Pressure 158/63 H 164/71 H Pulse Oximetry 100 98 Oxygen Delivery Intake/Output Intake/Output: Intake & Output 05/15/25 05/16/25 05/17/25 05/18/25 23:59 23:59 23:59 23:59 Intake Total 2340 2787 1632 100 Output Total 2800 1750 1000 Balance 2340 -13 -118 -900 Meds/Results Medications: Active Medications Generic Name Dose Route Start Last Admin Trade Name Freq PRN Reason Stop Dose Admin Acetaminophen 650 mg 05/15/25 13:24 05/15/25 19:50 Acetaminophen 325 Mg Tablet PO 650 mg Q6H PRN Administration Mild Pain (1-3) or Fever Apixaban 5 mg 05/15/25 22:30 05/17/25 20:36 Apixaban 5 Mg Tablet PO 5 mg Q12HR BASSEM Administration Atorvastatin Calcium 40 mg 05/16/25 09:00 05/17/25 09:01 Atorvastatin 40 Mg Tablet PO 40 mg DAILY BASSEM Administration Benzonatate 100 mg 05/15/25 13:24 Benzonatate 100 Mg Capsule PO TID PRN Cough Dextrose 12.5 gm 05/15/25 13:27 Dextrose 50% 25 Gm/50 Ml Syringe IV PUSH PRN PRN Hypoglycemia Protocol Doxycycline Hyclate 100 mg 05/15/25 21:00 05/17/25 20:37 Doxycycline Hyclate 100 Mg Tablet PO 05/22/25 20:59 100 mg Q12HR BASSEM Administration Finasteride 5 mg 05/16/25 09:00 05/17/25 09:01 Finasteride 5 Mg Tablet PO 5 mg QAM BASSEM Administration Glucagon 1 mg 05/15/25 13:27 Glucagon For Inj 1 Mg Vial IM PRN PRN Hypoglycemia Protocol Glucose 15 gm 05/15/25 13:27 Glucose Oral Gel 15 Gm Of Glucse In 37.5 Gm Tube PO PRN PRN Hypoglycemia Protocol Guaifenesin 600 mg 05/15/25 13:50 05/17/25 20:36 Guaifenesin 12 Hr 600 Mg Tabcr PO 600 mg Q12HR BASSEM Administration Cefepime HCl 1 gm in 50 mls @ 100 mls/hr 05/15/25 18:00 05/18/25 05:55 Maxipime 1 Gm/Ns 50 Ml IVPB 100 mls/hr Q12H BASSEM Administration Dextrose 1,000 mls @ 100 mls/hr 05/15/25 13:27 Dextrose 5% 1,000 Ml IVPB PRN PRN Hypoglycemia Protocol Insulin Aspart 2 - 5 units 05/15/25 17:00 05/17/25 17:06 Insulin Aspart (*Bkc) 100 Units/Ml SUB-Q Not Given TIDWM BASSEM Protocol Metoprolol Tartrate 50 mg 05/15/25 22:30 05/17/25 20:35 Metoprolol Tartrate 50 Mg Tab PO 50 mg Q12HR BASSEM Administration Mirtazapine 15 mg 05/15/25 22:30 05/17/25 20:36 Mirtazapine 15 Mg Tablet PO 15 mg HS BASSEM Administration Radiology Results: ITS Impressions Chest X-Ray 05/15/25 12:01 IMPRESSION: Left basilar atelectasis versus pneumonia. Renal Ultrasound 05/15/25 14:00 IMPRESSION: 1. Normal kidneys without hydronephrosis. 2. Mild thickening of the bladder wall with irregular mucosal surface, consistent which is somewhat limited by partially decompressed state. Differential would include cystitis either acute or chronic which is suggested by the appearance on prior CT, sequela of chronic outlet obstruction or malignancy. Correlate with urinalysis and clinical history. Consider cystoscopy for further evaluation as clinically indicated. Labs Labs: Laboratory Results - last 24 hr 05/15/25 05/17/25 05/17/25 10:59 09:12 11:39 WBC 11.5 H RBC 2.92 L Hgb 8.6 L Hct 27.7 L MCV 94.9 MCH 29.5 MCHC 31.0 L RDW 13.6 Plt Count 286 MPV 8.4 Sodium 136 L Potassium 4.3 Chloride 103 Carbon Dioxide 18 L Anion Gap 15 H BUN 88 H Creatinine 5.56 H Estim Creat Clear Calc 12 Estimated GFR 10 L Glucose 130 H POC Capillary Glucose 126 H Serum Osmolality 319 H Calcium 8.3 L Phosphorus Albumin 05/17/25 05/17/25 05/18/25 16:33 20:07 06:05 WBC RBC Hgb Hct MCV MCH MCHC RDW Plt Count MPV Sodium 135 L Potassium 3.6 Chloride 103 Carbon Dioxide 17 L Anion Gap 15 H BUN 83 H Creatinine 5.40 H Estim Creat Clear Calc 12 Estimated GFR 11 L Glucose 83 POC Capillary Glucose 149 H 160 H Serum Osmolality Calcium 8.3 L Phosphorus 6.1 H Albumin 2.8 L 05/18/25 07:52 WBC RBC Hgb Hct MCV MCH MCHC RDW Plt Count MPV Sodium Potassium Chloride Carbon Dioxide Anion Gap BUN Creatinine Estim Creat Clear Calc Estimated GFR Glucose POC Capillary Glucose 106 H Serum Osmolality Calcium Phosphorus Albumin Quality VTE Prophylaxis VTE prophylaxis: pharmacologic ordered
[2025-05-18] MEDS: DOXYCYCLINE HYCLATE 100 MG TABLET PO ×2 (09:41→20:30)
[2025-05-18] MEDS: ATORVASTATIN 40 MG TABLET PO (09:41)
[2025-05-18] MEDS: FINASTERIDE 5 MG TABLET PO (09:41)
[2025-05-18 09:42] VITALS: PULSE 98
[2025-05-18] MEDS: APIXABAN 5 MG TABLET PO ×2 (09:42→20:30)
[2025-05-18] MEDS: guaiFENesin 12 HR 600 MG TABCR PO ×2 (09:42→20:29)
[2025-05-18] MEDS: METOPROLOL TARTRATE 50 MG TAB PO ×2 (09:42→20:29)
--- NOTE | 2025-05-18 10:11 | P.PNNP_ITS ---
Progress Note: A&P Assessment and Plan (1) Acute kidney injury: Code(s): N17.9 - Acute kidney failure, unspecified Status: Acute Assessment and Plan: * as noted by admission labs * evaluation to date noted: * renal ultrasound w/o acute obstruction * UA suggestive of infection * urine electrolytes non-prerenal * urine eosinophils * proteinuria noted * CPK low/normal * etiology not entirely clear - possibly related to: * prerenal factors * infection (UTI +/- pneumonia) * perdomo obstruction? * other?? * perdomo catheter exchanged in ER. He says this gets changed about every 2 * off IVFs. getting antibiotics for presumed UTI and pneumonia. * creatinine is very slowly coming exam * Not eating very well * Will give a little bit of IV fluid * Long discussion with the patient. He is starting to understand how bad his kidneys are right now. Hopefully they will improve. (2) Stage 3 chronic kidney disease: Code(s): N18.30 - Chronic kidney disease, stage 3 unspecified Status: Chronic Assessment and Plan: * baseline creatinine seems to run ~ 1.5 - 2.0mg/dl * this causes him to fluctuate between CKD stage 3A and stage 3B * he has fluctuated to the high 2ish range on previous hospitalizations * presumably secondary to hypertension, DM, vascular disease, BPH, neurogenic bladder, recurrent UTIs, and age-change (3) UTI (urinary tract infection): Qualifiers: Urinary tract infection type: acute cystitis Hematuria presence: without hematuria Qualified Code(s): N30.00 - Acute cystitis without hematuria Code(s): N39.0 - Urinary tract infection, site not specified Status: Acute Assessment and Plan: * admission UA highly suggestive: * complicated by indwelling perdomo catheter * follow culture data * on cefipime (4) Pneumonia: Qualifiers: Laterality: left Lung location: lower lobe of lung Pneumonia type: due to unspecified organism Qualified Code(s): J18.9 - Pneumonia, unspecified organism Code(s): J18.9 - Pneumonia, unspecified organism Status: Acute Assessment and Plan: * admission CXR suggestive * follow culture data * pt should stop smoking * no respiratory distress and no oxygen requirements * continue supportive therapy (5) Neurogenic bladder: Code(s): N31.9 - Neuromuscular dysfunction of bladder, unspecified Status: Acute Assessment and Plan: * chronic perdomo catheter * exchange in ER on admission * Urology recommendations noted regarding renal ultrasound findings (6) Anemia: Qualifiers: Anemia type: iron deficiency Iron deficiency anemia type: chronic blood loss Qualified Code(s): D50.0 - Iron deficiency anemia secondary to blood loss (chronic) Code(s): D64.9 - Anemia, unspecified Status: Acute Assessment and Plan: * presumably due to LEANDRO, CKd, acute illness/infection, and IVFs * hb up and down, now 8.6 (7) Hypertension: Qualifiers: Hypertension type: primary hypertension Qualified Code(s): I10 - Essential (primary) hypertension Code(s): I10 - Essential (primary) hypertension Status: Chronic Assessment and Plan: * bp 140s to 160s. * on metoprolol alone. * will add amlodipine today * follow trend of hemodynamics (8) Diabetes: Qualifiers: Diabetes mellitus type: type 2 Diabetes mellitus intermediate school teacher insulin use: without intermediate school teacher use Diabetes mellitus complication status: without complication Qualified Code(s): E11.9 - Type 2 diabetes mellitus without complications Code(s): E11.9 - Type 2 diabetes mellitus without complications Status: Chronic Assessment and Plan: * follow accu-cheks * glycemic control per hospitalist Subjective Date/time seen: 05/18/25 10:11 Interval history: Patient is feeling okay. Perdomo catheter still in place No chest pain or shortness of breath Cough is about the same Exam Narrative: WDWN in NAD skin no rash or subcu nodules head ncat lungs clear with distant bs throughout and some wheezing occasionally cor reg no rub or gallop abd BS+ nontender and soft ext no edema. Objective Data Vital Signs Vital Signs: Vital Signs - 24 hr 05/17/25 14:00 05/17/25 20:32 05/17/25 20:35 Temperature 97.2 F L Pulse Rate 64 72 72 Respiratory Rate 18 14 Blood Pressure 143/72 H Pulse Oximetry 100 100 Oxygen Delivery Room Air 05/17/25 21:30 05/18/25 06:00 05/18/25 09:42 Temperature 97.7 F 97.5 F L Pulse Rate 72 70 98 Respiratory Rate 14 14 Blood Pressure 158/63 H 164/71 H Pulse Oximetry 100 98 Oxygen Delivery Intake/Output Intake/Output: Intake & Output 05/15/25 05/16/25 05/17/25 05/18/25 23:59 23:59 23:59 23:59 Intake Total 2340 2787 1632 218 Output Total 2800 1750 1000 Balance 2340 -13 -118 -782 Meds/Results Medications: Active Medications Generic Name Dose Route Start Last Admin Trade Name Freq PRN Reason Stop Dose Admin Acetaminophen 650 mg 05/15/25 13:24 05/15/25 19:50 Acetaminophen 325 Mg Tablet PO 650 mg Q6H PRN Administration Mild Pain (1-3) or Fever Apixaban 5 mg 05/15/25 22:30 05/18/25 09:42 Apixaban 5 Mg Tablet PO 5 mg Q12HR BASSEM Administration Atorvastatin Calcium 40 mg 05/16/25 09:00 05/18/25 09:41 Atorvastatin 40 Mg Tablet PO 40 mg DAILY BASSEM Administration Benzonatate 100 mg 05/15/25 13:24 Benzonatate 100 Mg Capsule PO TID PRN Cough Dextrose 12.5 gm 05/15/25 13:27 Dextrose 50% 25 Gm/50 Ml Syringe IV PUSH PRN PRN Hypoglycemia Protocol Doxycycline Hyclate 100 mg 05/15/25 21:00 05/18/25 09:41 Doxycycline Hyclate 100 Mg Tablet PO 05/22/25 20:59 100 mg Q12HR BASSEM Administration Finasteride 5 mg 05/16/25 09:00 05/18/25 09:41 Finasteride 5 Mg Tablet PO 5 mg QAM BASSEM Administration Glucagon 1 mg 05/15/25 13:27 Glucagon For Inj 1 Mg Vial IM PRN PRN Hypoglycemia Protocol Glucose 15 gm 05/15/25 13:27 Glucose Oral Gel 15 Gm Of Glucse In 37.5 Gm Tube PO PRN PRN Hypoglycemia Protocol Guaifenesin 600 mg 05/15/25 13:50 05/18/25 09:42 Guaifenesin 12 Hr 600 Mg Tabcr PO 600 mg Q12HR BASSEM Administration Cefepime HCl 1 gm in 50 mls @ 100 mls/hr 05/15/25 18:00 05/18/25 05:55 Maxipime 1 Gm/Ns 50 Ml IVPB 100 mls/hr Q12H BASSEM Administration Dextrose 1,000 mls @ 100 mls/hr 05/15/25 13:27 Dextrose 5% 1,000 Ml IVPB PRN PRN Hypoglycemia Protocol Insulin Aspart 2 - 5 units 05/15/25 17:00 05/18/25 09:41 Insulin Aspart (*Bkc) 100 Units/Ml SUB-Q Not Given TIDWM BASSEM Protocol Metoprolol Tartrate 50 mg 05/15/25 22:30 05/18/25 09:42 Metoprolol Tartrate 50 Mg Tab PO 50 mg Q12HR BASSEM Administration Mirtazapine 15 mg 05/15/25 22:30 05/17/25 20:36 Mirtazapine 15 Mg Tablet PO 15 mg HS BASSEM Administration Radiology Results: ITS Impressions Chest X-Ray 05/15/25 12:01 IMPRESSION: Left basilar atelectasis versus pneumonia. Renal Ultrasound 05/15/25 14:00 IMPRESSION: 1. Normal kidneys without hydronephrosis. 2. Mild thickening of the bladder wall with irregular mucosal surface, consistent which is somewhat limited by partially decompressed state. Differential would include cystitis either acute or chronic which is suggested by the appearance on prior CT, sequela of chronic outlet obstruction or malignancy. Correlate with urinalysis and clinical history. Consider cystoscopy for further evaluation as clinically indicated. Labs Labs: Laboratory Results - last 24 hr 05/15/25 05/17/25 05/17/25 10:59 11:39 16:33 Sodium Potassium Chloride Carbon Dioxide Anion Gap BUN Creatinine Estim Creat Clear Calc Estimated GFR Glucose POC Capillary Glucose 126 H 149 H Serum Osmolality 319 H Calcium Phosphorus Albumin 05/17/25 05/18/25 05/18/25 20:07 06:05 07:52 Sodium 135 L Potassium 3.6 Chloride 103 Carbon Dioxide 17 L Anion Gap 15 H BUN 83 H Creatinine 5.40 H Estim Creat Clear Calc 12 Estimated GFR 11 L Glucose 83 POC Capillary Glucose 160 H 106 H Serum Osmolality Calcium 8.3 L Phosphorus 6.1 H Albumin 2.8 L
[2025-05-18] MEDS: SODIUM CHLORIDE 0.9% IV 1,000 ML 75 ML IV CONT (12:38)
[2025-05-18 14:00] VITALS: BP 125/66; PULSE 68; RESP 16; TEMP 36; O2SAT 100
[2025-05-18 20:29] VITALS: PULSE 66
[2025-05-18] MEDS: MIRTAZAPINE 15 MG TABLET PO (20:29)
[2025-05-18 22:00] VITALS: BP 149/63; PULSE 67; RESP 17; TEMP 36.6; O2SAT 100
[2025-05-19] VITALS (7 sets, daily range): BP systolic 140–159; BP diastolic 70–88; PULSE 69–82; RESP 14–24; TEMP 36.3–36.6; O2SAT 99–100
[2025-05-19] MEDS: CEFEPIME 1 GM/NS 50 ML 1 GM/50 ML BAG IVPB ×2 (05:18→17:11)
[2025-05-19 07:13] LABS: Hematocrit 25.6 % (42.0-52.0); Hemoglobin 8.1 g/dL (14.0-18.0); Mean Corpuscular HGB Conc 31.6 g/dl (32-36); Mean Corpuscular Hemoglobin 29.7 pg (26-34); Mean Corpuscular Volume 93.8 fl (80-100); Platelet Count Result 309 k/mm3 (150-375); Red Blood Count 2.73 M/mm3 (4.6-6.20); White Blood Count 12.4 K/mm3 (4.5-10.0)
[2025-05-19 07:31] LABS: Albumin Level 2.8 g/dL (3.5-5.1); Anion Gap 13 mmol/L (4-12); Blood Urea Nitrogen 80 mg/dL (9-20); Calcium 7.8 mg/dL (8.4-10.2); Carbon Dioxide 16 mmol/L (22-30); Chloride 105 mmol/L (98-107); Estimated CRCL calculation 13 ml/min; Estimated Glomerular Filt Rate 12; Glucose 77 mg/dL (65-110); Potassium 3.5 mmol/L (3.4-5.0); Sodium 134 mmol/L (137-145)
--- NOTE | 2025-05-19 08:36 | P.PNNP_ITS ---
Progress Note: A&P Assessment and Plan (1) Acute kidney injury: Code(s): N17.9 - Acute kidney failure, unspecified Status: Acute Assessment and Plan: * as noted by admission labs * evaluation to date noted: * renal ultrasound w/o acute obstruction * UA suggestive of infection * urine electrolytes non-prerenal * urine eosinophils * proteinuria noted * CPK low/normal * etiology not entirely clear - possibly related to: * prerenal factors * infection (UTI +/- pneumonia) * perdomo obstruction? * other?? * perdomo catheter exchanged in ER. He says this gets changed about every 2 * getting antibiotics for presumed UTI and pneumonia. * getting some IV fluids now. * creatinine is very slowly coming down * Check another 1 tomorrow (2) Stage 3 chronic kidney disease: Code(s): N18.30 - Chronic kidney disease, stage 3 unspecified Status: Chronic Assessment and Plan: * baseline creatinine seems to run ~ 1.5 - 2.0mg/dl * this causes him to fluctuate between CKD stage 3A and stage 3B * he has fluctuated to the high 2ish range on previous hospitalizations * presumably secondary to hypertension, DM, vascular disease, BPH, neurogenic bladder, recurrent UTIs, and age-change (3) UTI (urinary tract infection): Qualifiers: Urinary tract infection type: acute cystitis Hematuria presence: without hematuria Qualified Code(s): N30.00 - Acute cystitis without hematuria Code(s): N39.0 - Urinary tract infection, site not specified Status: Acute Assessment and Plan: * admission UA highly suggestive: * complicated by indwelling perdomo catheter * follow culture data * on cefipime (4) Pneumonia: Qualifiers: Laterality: left Lung location: lower lobe of lung Pneumonia type: due to unspecified organism Qualified Code(s): J18.9 - Pneumonia, unspecified organism Code(s): J18.9 - Pneumonia, unspecified organism Status: Acute Assessment and Plan: * admission CXR suggestive * follow culture data * pt should stop smoking * no respiratory distress and no oxygen requirements * continue supportive therapy (5) Neurogenic bladder: Code(s): N31.9 - Neuromuscular dysfunction of bladder, unspecified Status: Acute Assessment and Plan: * chronic perdomo catheter * exchange in ER on admission * Urology recommendations noted regarding renal ultrasound findings (6) Anemia: Qualifiers: Anemia type: iron deficiency Iron deficiency anemia type: chronic blood loss Qualified Code(s): D50.0 - Iron deficiency anemia secondary to blood loss (chronic) Code(s): D64.9 - Anemia, unspecified Status: Acute Assessment and Plan: * presumably due to LEANDRO, CKd, acute illness/infection, and IVFs * hb up and down, today's level is 8.1. This is lower than it has been. * Will start Epogen (7) Hypertension: Qualifiers: Hypertension type: primary hypertension Qualified Code(s): I10 - Essential (primary) hypertension Code(s): I10 - Essential (primary) hypertension Status: Chronic Assessment and Plan: * bp 140s to 160s. * on metoprolol alone. * just started amlodipine yesterday. * Will get 1 more day to soak in * consider adjusting medicines again tomorrow (8) Diabetes: Qualifiers: Diabetes mellitus type: type 2 Diabetes mellitus long term acute care registered nurse insulin use: without long term acute care registered nurse use Diabetes mellitus complication status: without compli cation Qualified Code(s): E11.9 - Type 2 diabetes mellitus without complications Code(s): E11.9 - Type 2 diabetes mellitus without complications Status: Chronic Assessment and Plan: * follow accu-cheks * glycemic control per hospitalist Subjective Date/time seen: 05/19/25 08:36 Interval history: patient is feeling okay. Eating is just fair resting comfortably in Exam Narrative: WDWN male in NAD skin no rash or subcu nodules head ncat lungs clear with distant bs throughout. Some increase in expiratory phase cor reg no rub or gallop abd BS+ nontender and soft ext no edema or cyanosis Objective Data Vital Signs Vital Signs: Vital Signs - 24 hr 05/18/25 09:42 05/18/25 14:00 05/18/25 20:29 Temperature 96.8 F L Pulse Rate 98 68 66 Respiratory Rate 16 Blood Pressure 125/66 Pulse Oximetry 100 05/18/25 22:00 05/19/25 06:00 Temperature 97.8 F 97.4 F L Pulse Rate 67 69 Respiratory Rate 17 14 Blood Pressure 149/63 H 140/88 Pulse Oximetry 100 100 Intake/Output Intake/Output: Intake & Output 05/16/25 05/17/25 05/18/25 05/19/25 23:59 23:59 23:59 23:59 Intake Total 2787 1632 540 400 Output Total 2800 1750 1750 1800 [facility] -13 [phone] -1210 -1400 Meds/Results Medications: Active Medications Generic Name Dose Route Start Last Admin Trade Name Freq PRN Reason Stop Dose Admin Acetaminophen 650 mg 05/15/25 13:24 05/15/25 19:50 Acetaminophen 325 Mg Tablet PO 650 mg Q6H PRN Administration Mild Pain (1-3) or Fever Amlodipine Besylate 2.5 mg 05/18/25 10:20 05/18/25 12:38 Amlodipine Besylate 2.5 Mg Tablet PO 2.5 mg QAM BASSEM Administration Apixaban 5 mg 05/15/25 22:30 05/18/25 20:30 Apixaban 5 Mg Tablet PO 5 mg Q12HR BASSEM Administration Atorvastatin Calcium 40 mg 05/16/25 09:00 05/18/25 09:41 Atorvastatin 40 Mg Tablet PO 40 mg DAILY BASSEM Administration Benzonatate 100 mg 05/15/25 13:24 Benzonatate 100 Mg Capsule PO TID PRN Cough Dextrose 12.5 gm 05/15/25 13:27 Dextrose 50% 25 Gm/50 Ml Syringe IV PUSH PRN PRN Hypoglycemia Protocol Doxycycline Hyclate 100 mg 05/15/25 21:00 05/18/25 20:30 Doxycycline Hyclate 100 Mg Tablet PO 05/22/25 20:59 100 mg Q12HR BASSEM Administration Finasteride 5 mg 05/16/25 09:00 05/18/25 09:41 Finasteride 5 Mg Tablet PO 5 mg QAM BASSEM Administration Glucagon 1 mg 05/15/25 13:27 Glucagon For Inj 1 Mg Vial IM PRN PRN Hypoglycemia Protocol Glucose 15 gm 05/15/25 13:27 Glucose Oral Gel 15 Gm Of Glucse In 37.5 Gm Tube PO PRN PRN Hypoglycemia Protocol Guaifenesin 600 mg 05/15/25 13:50 05/18/25 20:29 Guaifenesin 12 Hr 600 Mg Tabcr PO 600 mg Q12HR BASSEM Administration Cefepime HCl 1 gm in 50 mls @ 100 mls/hr 05/15/25 18:00 05/19/25 05:18 Maxipime 1 Gm/Ns 50 Ml IVPB 100 mls/hr Q12H BASSEM Administration Dextrose 1,000 mls @ 100 mls/hr 05/15/25 13:27 Dextrose 5% 1,000 Ml IVPB PRN PRN Hypoglycemia Protocol Sodium Chloride 1,000 mls @ 75 mls/hr 05/18/25 10:15 05/18/25 12:38 Normal Saline Iv IV CONT 75 mls/hr .[id number] BASSEM Administration Insulin Aspart 2 - 5 units 05/15/25 17:00 05/18/25 17:34 Insulin Aspart (*Bkc) 100 Units/Ml SUB-Q Not Given TIDWM BASSEM Protocol Metoprolol Tartrate 50 mg 05/15/25 22:30 05/18/25 20:29 Metoprolol Tartrate 50 Mg Tab PO 50 mg Q12HR BASSEM Administration Mirtazapine 15 mg 05/15/25 22:30 05/18/25 20:29 Mirtazapine 15 Mg Tablet PO 15 mg HS BASSEM Administration Radiology Results: ITS Impressions Renal Ultrasound 05/15/25 14:00 IMPRESSION: 1. Normal kidneys without hydronephrosis. 2. Mild thickening of the bladder wall with irregular mucosal surface, cons istent which is somewhat limited by partially decompressed state. Differential would include cystitis either acute or chronic which is suggested by the appearance on prior CT, sequela of chronic outlet obstruction or malignancy. Correlate with urinalysis and clinical history. Consider cystoscopy for further evaluation as clinically indicated. Chest X-Ray 05/19/25 07:18 Impression: Clear lungs. Labs Labs: Laboratory Results - last 24 hr 05/18/25 05/18/25 05/18/25 11:22 16:57 20:04 WBC RBC Hgb Hct MCV MCH MCHC RDW Plt Count MPV Sodium Potassium Chloride Carbon Dioxide Anion Gap BUN Creatinine Estim Creat Clear Calc Estimated GFR Glucose POC Capillary Glucose 139 H 87 144 H Calcium Phosphorus Albumin 05/19/25 05/19/25 06:06 08:11 WBC 12.4 H RBC 2.73 L Hgb 8.1 L Hct 25.6 L MCV 93.8 MCH 29.7 MCHC 31.6 L RDW 13.6 Plt Count 309 MPV 8.6 Sodium 134 L Potassium 3.5 Chloride 105 Carbon Dioxide 16 L Anion Gap 13 H BUN 80 H Creatinine 4.87 H Estim Creat Clear Calc 13 Estimated GFR 12 L Glucose 77 POC Capillary Glucose 77 Calcium 7.8 L Phosphorus 6.0 H Albumin 2.8 L
[2025-05-19] MEDS: DOXYCYCLINE HYCLATE 100 MG TABLET PO ×2 (09:10→20:47)
[2025-05-19] MEDS: APIXABAN 5 MG TABLET PO ×2 (09:10→20:46)
[2025-05-19] MEDS: ATORVASTATIN 40 MG TABLET PO (09:10)
[2025-05-19] MEDS: FINASTERIDE 5 MG TABLET PO (09:11)
[2025-05-19] MEDS: guaiFENesin 12 HR 600 MG TABCR PO ×2 (09:11→20:46)
[2025-05-19] MEDS: METOPROLOL TARTRATE 50 MG TAB PO ×2 (09:11→20:47)
[2025-05-19] MEDS: EPOETIN ALFA-EPBX 10,000 UNITS/ML VIAL 10000 UNITS SUB-Q (09:26)
[2025-05-19] MEDS: BENZONATATE 100 MG CAPSULE PO (11:47)
--- NOTE | 2025-05-19 11:59 | P.PNIM_ITS ---
Progress Note: A&P Assessment and Plan (1) Acute kidney injury superimposed on CKD: Code(s): N17.9 - Acute kidney failure, unspecified; N18.9 - Chronic kidney disease, unspecified Status: Acute Assessment and Plan: Patient recently admitted here after he was found down and has no recollection of events. He was living at home independently. He was treated for a UTI, started on ceftriaxone. UA grew Enterobacter susceptible to Bactrim, discharged with same. UA today equivocal for infection, however started on antibiotics. For output in the ED despite Perdomo exchange may indicate there is a dehydration component. Will check labs and renal ultrasound. IV fluids. Nephrology consulted. Renal ultrasound showed irregular mucosal surface of the bladder, could be related to chronic outlet obstruction or malignancy. No prior cystoscopy on file, will consult Urology for evaluation for possible need for cystoscopy. as per urology continue perdomo watch UO and BMP dc fluids now await 05/17: Creatinine still elevated, 5.56, improved slightly Nose on fluid overload Appreciate consultation of urologist and chute worker Plan is to continue current treatment monitor closely (2) Pneumonia: Qualifiers: Laterality: left Lung location: lower lobe of lung Pneumonia type: due to unspecified organism Qualified Code(s): J18.9 - Pneumonia, unspecified organism Code(s): J18.9 - Pneumonia, unspecified organism Status: Acute Assessment and Plan: - CXR: Left basilar atelectasis versus pneumonia. - complicating/risk factors: Recent hospitalization - started on ceftriaxone and azithromycin, exchanged it to cefepime and doxycycline. -pt now on RA Patient still has cough, denies dyspnea Continue current antibiotics (3) UTI (urinary tract infection): Qualifiers: Urinary tract infection type: acute cystitis Hematuria presence: without hematuria Qualified Code(s): N30.00 - Acute cystitis without hematuria Code(s): N39.0 - Urinary tract infection, site not specified Status: Acute Assessment and Plan: - previous micro reviewed, Enterobacter on 04/19 that was resistant to Augmentin and/Ancef, intermediate to Macrobid. Ceftriaxone sensitivities not listed. - started on cefepime on 05/15 Urine culture grows Gram-negative baseline, Continue current medication. Wait for culture sensitivity report. (4) Neurogenic bladder: Code(s): N31.9 - Neuromuscular dysfunction of bladder, unspecified Status: Acute Assessment and Plan: - chronic Perdomo, exchanged today on 05/15 follow up cystoscopy OPD (5) Diabetes: Qualifiers: Diabetes mellitus type: type 2 Diabetes mellitus long term care administrator insulin use: without long term care administrator use Diabetes mellitus complication status: without complication Qualified Code(s): E11.9 - Type 2 diabetes mellitus without complications Code(s): E11.9 - Type 2 diabetes mellitus without complications Status: Chronic Assessment and Plan: -- CLAUDIA bynum - A1C 6.7% in September of 2024, updating (6) Hypertension: Qualifiers: Hypertension type: primary hypertension Qualified Code(s): I10 - Essential (primary) hypertension Code(s): I10 - Essential (primary) hypertension Status: Chronic Assessment and Plan: - chronic, currently 132/75 - continue home medications: Metoprolol Plan DVT eliquis code DNR Subjective Date/time seen: 05/19/25 11:59 Interval history: Pneumonia, UTI, hypertension, dyslipidemia, renal insufficiency Patient was seen during morning rounds today. No new overnight complaints. No shortness of breath or chest pain. No abdominal pain, nausea, no vomiting. Review of Systems Review of Systems: mild cough pt feels weak All systems reviewed & are unremarkable except as noted in HPI and below Exam Narrative: GENERAL: Pleasant, in no acute distress. Well-nourished. - EYES: EOMI. Anicteric. - HENT: Moist mucous membranes. - LUNGS: Clear to auscultation bilateral ly, no wheezing, rhonchi, or rales. - CARDIOVASCULAR: Regular rate and rhyth m. No murmur. No JVD. - ABDOMEN: Soft, non-tender and non-dist ended. No palpable masses. - EXTREMITIES: No edema. Peripheral puls es 2+. Non-tender. - NEUROLOGIC: No focal neurological defi cits. CN II-XII grossly intact. - PSYCHIATRIC: Awake, Alert and oriented x 3. Appropriate mood and affect. - SKIN: No rashes or lesions. Warm. - LYMPH: No cervical lymphadenopathy. Const: General: comfortable and no acute distress Other: , male, elderly, chronically ill-appearing HENMT: Face/Nose/Sinus: Normal nares present Mouth: Yes moist mucous membranes Eyes: General: appearance normal, both eyes and all related structures Sclera: sclerae normal Pupils: Equal, round and reactive pupils present EOM: EOMs intact bilaterally Resp: Effort & Inspection: normal respiratory effort Auscultation: clear to auscultation bilaterally Cardio: Rate: regular rate Rhythm: regular rhythm Other: S1-S2 present without murmur, rub, ectopy GI: Other: Abdomen soft, nondistended, nontender. Normoactive bowel sounds in all quadrants. : General: Yes bladder normal to palpation Urinary Catheter: Urinary Catheter: patent and draining (Minimal output) Skin: General skin exam: normal color and no rashes or lesions noted Wounds: no wounds Neuro: Cranial nerves: Yes Equal, round and reactive pupils present Speech: normal speech Motor exam (neuro): 5/5 motor strength present throughout Sensory Exam: normal sensation Other: A&O x4 Extrem: General: normal to inspection Psych: Mental Status: mental status grossly normal Affect: normal affect Other: Good insight and judgment, pleasant Objective Data Vital Signs Vital Signs: Vital Signs - 24 hr 05/18/25 14:00 05/18/25 20:29 05/18/25 22:00 Temperature 36.0 C L 36.6 C Pulse Rate 68 66 67 Respiratory Rate 16 17 Blood Pressure 125/66 149/63 H Pulse Oximetry 100 100 Oxygen Delivery 05/19/25 06:00 05/19/25 09:09 05/19/25 09:10 Temperature 36.3 C L 36.4 C L Pulse Rate 69 75 Respiratory Rate 14 16 Blood Pressure 140/88 153/76 H Pulse Oximetry 100 100 100 Oxygen Delivery Room Air 05/19/25 09:11 Temperature Pulse Rate 74 Respiratory Rate Blood Pressure Pulse Oximetry Oxygen Delivery Intake/Output Intake/Output: Intake & Output 05/16/25 05/17/25 05/18/25 05/19/25 23:59 23:59 23:59 23:59 Intake Total 2787 1632 540 518 Output Total 2800 1750 1750 1800 [facility] -13 -118 -1210 -1282 Meds/Results Medications: Active Medications Generic Name Dose Route Start Last Admin Trade Name Freq PRN Reason Stop Dose Admin Acetaminophen 650 mg 05/15/25 13:24 05/15/25 19:50 Acetaminophen 325 Mg Tablet PO 650 mg Q6H PRN Administration Mild Pain (1-3) or Fever Amlodipine Besylate 2.5 mg 05/18/25 10:20 05/19/25 09:10 Amlodipine Besylate 2.5 Mg Tablet PO 2.5 mg QAM BASSEM Administration Apixaban 5 mg 05/15/25 22:30 05/19/25 09:10 Apixaban 5 Mg Tablet PO 5 mg Q12HR BASSEM Administration Atorvastatin Calcium 40 mg 05/16/25 09:00 05/19/25 09:10 Atorvastatin 40 Mg Tablet PO 40 mg DAILY BASSEM Administration Benzocaine 1 lozenge 05/19/25 11:33 Benzocaine/Menthol (*Bkc) 18 Ea Lozenge PO PRN PRN Sore Throat Benzonatate 100 mg 05/15/25 13:24 05/19/25 11:47 Benzonatate 100 Mg Capsule PO 100 mg TID PRN Administration Cough Dextrose 12.5 gm 05/15/25 13:27 Dextrose 50% 25 Gm/50 Ml Syringe IV PUSH PRN PRN Hypoglycemia Protocol Doxycycline Hyclate 100 mg 05/15/25 21:00 05/19/25 09:10 Doxycycline Hyclate 100 Mg Tablet PO 05/22/25 20:59 100 mg Q12HR BASSEM Administration Epoetin Abhay-epbx 10,000 units 05/19/25 08:40 05/19/25 09:26 Epoetin Abhay-Epbx 10,000 Units/Ml Vial SUB-Q 10,000 units TUTHSA@09 BASSEM Administration Finasteride 5 mg 05/16/25 09:00 05/19/25 09:11 Finasteride 5 Mg Tablet PO 5 mg QAM BASSEM Administration Glucagon 1 mg 05/15/25 13:27 Glucagon For Inj 1 Mg Vial IM PRN PRN Hypoglycemia Protocol Glucose 15 gm 05/15/25 13:27 Glucose Oral Gel 15 Gm Of Glucse In 37.5 Gm Tube PO PRN PRN Hypoglycemia Protocol Guaifenesin 600 mg 05/15/25 13:50 05/19/25 09:11 Guaifenesin 12 Hr 600 Mg Tabcr PO 600 mg Q12HR BASSEM Administration Cefepime HCl 1 gm in 50 mls @ 100 mls/hr 05/15/25 18:00 05/19/25 05:18 Maxipime 1 Gm/Ns 50 Ml IVPB 100 mls/hr Q12H BASSEM Administration Dextrose 1,000 mls @ 100 mls/hr 05/15/25 13:27 Dextrose 5% 1,000 Ml IVPB PRN PRN Hypoglycemia Protocol Sodium Chloride 1,000 mls @ 75 mls/hr 05/18/25 10:15 05/18/25 12:38 Normal Saline Iv IV CONT 75 mls/hr .[id number] BASSEM Administration Insulin Aspart 2 - 5 units 05/15/25 17:00 05/19/25 10:02 Insulin Aspart (*Bkc) 100 Units/Ml SUB-Q Not Given TIDWM BASSEM Protocol Metoprolol Tartrate 50 mg 05/15/25 22:30 05/19/25 09:11 Metoprolol Tartrate 50 Mg Tab PO 50 mg Q12HR BASSEM Administration Mirtazapine 15 mg 05/15/25 22:30 05/18/25 20:29 Mirtazapine 15 Mg Tablet PO 15 mg HS BASSEM Administration Radiology Results: ITS Impressions Renal Ultrasound 05/15/25 14:00 IMPRESSION: 1. Normal kidneys without hydronephrosis. 2. Mild thickening of the bladder wall with irregular mucosal surface, consistent which is somewhat limited by partially decompressed state. Differential would include cystitis either acute or chronic which is suggested by the appearance on prior CT, sequela of chronic outlet obstruction or malignancy. Correlate with urinalysis and clinical history. Consider cystoscopy for further evaluation as clinically indicated. Chest X-Ray 05/19/25 07:18 Impression: Clear lungs. Labs Labs: Laboratory Results - last 24 hr 05/18/25 05/18/25 05/19/25 16:57 20:04 06:06 WBC 12.4 H RBC 2.73 L Hgb 8.1 L Hct 25.6 L MCV 93.8 MCH 29.7 MCHC 31.6 L RDW 13.6 Plt Count 309 MPV 8.6 Sodium 134 L Potassium 3.5 Chloride 105 Carbon Dioxide 16 L Anion Gap 13 H BUN 80 H Creatinine 4.87 H Estim Creat Clear Calc 13 Estimated GFR 12 L Glucose 77 POC Capillary Glucose 87 144 H Calcium 7.8 L Phosphorus 6.0 H Albumin 2.8 L 05/19/25 08:11 WBC RBC Hgb Hct MCV MCH MCHC RDW Plt Count MPV Sodium Potassium Chloride Carbon Dioxide Anion Gap BUN Creatinine Estim Creat Clear Calc Estimated GFR Glucose POC Capillary Glucose 77 Calcium Phosphorus Albumin Quality VTE Prophylaxis VTE prophylaxis: pharmacologic ordered
[2025-05-19] MEDS: SODIUM CHLORIDE 0.9% IV 1,000 ML 75 ML IV CONT (17:40)
[2025-05-19] MEDS: MIRTAZAPINE 15 MG TABLET PO (20:47)
[2025-05-20] MEDS: CEFEPIME 1 GM/NS 50 ML 1 GM/50 ML BAG IVPB ×2 (05:24→17:03)
[2025-05-20 06:00] VITALS: BP 150/83; PULSE 80; RESP 24; TEMP 37.3; O2SAT 99
[2025-05-20 06:46] LABS: Hematocrit 25.2 % (42.0-52.0); Hemoglobin 8.0 g/dL (14.0-18.0); Immature Granulocyte Percent A 2.6 % (0-0.5); Lymphocytes Absolute Auto 1.32 K/mm3 (0.9-3.2); Mean Corpuscular HGB Conc 31.7 g/dl (32-36); Mean Corpuscular Hemoglobin 30.0 pg (26-34); Mean Corpuscular Volume 94.4 fl (80-100); Nucleated Red Blood Cells Absolute Auto 0.000 K/mm3 (0.0-0.012); Nucleated Red Blood Cells Perc 0.0 % (0.0-0.2); Platelet Count Result 273 k/mm3 (150-375); Red Blood Count 2.67 M/mm3 (4.6-6.20); White Blood Count 9.4 K/mm3 (4.5-10.0)
[2025-05-20] MEDS: SODIUM CHLORIDE 0.9% IV 1,000 ML 75 ML IV CONT ×2 (06:55→16:59)
[2025-05-20 06:59] LABS: Alanine Aminotransferase 31 U/L (6-50); Albumin Level 2.8 g/dL (3.5-5.1); Alkaline Phosphatase 157 U/L (38-126); Anion Gap 14 mmol/L (4-12); Aspartate Amino Transferase 36 U/L (17-59); Bilirubin,Total 0.5 mg/dL (0.2-1.3); Blood Urea Nitrogen 77 mg/dL (9-20); Calcium 7.9 mg/dL (8.4-10.2); Carbon Dioxide 14 mmol/L (22-30); Chloride 109 mmol/L (98-107); Estimated CRCL calculation 14 ml/min; Estimated Glomerular Filt Rate 13; Glucose 83 mg/dL (65-110); Potassium 3.5 mmol/L (3.4-5.0); Sodium 137 mmol/L (137-145); Total Protein 6.5 g/dL (6.3-8.2)
[2025-05-20 08:49] VITALS: PULSE 80
[2025-05-20] MEDS: METOPROLOL TARTRATE 50 MG TAB PO ×2 (08:49→21:30)
[2025-05-20] MEDS: DOXYCYCLINE HYCLATE 100 MG TABLET PO (08:49)
[2025-05-20] MEDS: ATORVASTATIN 40 MG TABLET PO (08:49)
[2025-05-20] MEDS: APIXABAN 5 MG TABLET PO ×2 (08:49→21:31)
[2025-05-20] MEDS: FINASTERIDE 5 MG TABLET PO (08:50)
[2025-05-20] MEDS: guaiFENesin 12 HR 600 MG TABCR PO ×2 (08:50→21:31)
--- NOTE | 2025-05-20 11:01 | P.PNNP_ITS ---
Progress Note: A&P Assessment and Plan (1) Acute kidney injury: Code(s): N17.9 - Acute kidney failure, unspecified Status: Acute Assessment and Plan: * slow improvement noted * as noted by admission labs * evaluation to date noted: * renal ultrasound w/o acute obstruction * UA suggestive of infection * urine electrolytes non-prerenal * urine eosinophils * proteinuria noted * CPK low/normal * etiology not entirely clear - possibly related to: * prerenal factors * infection (UTI +/- pneumonia) * perdomo obstruction? * other?? * perdomo catheter exchanged in ER * on antibiotics for presumed UTI and pneumonia * ongoing IV fluids at this time * follow trend of repeat labs and UOP (2) Stage 3 chronic kidney disease: Code(s): N18.30 - Chronic kidney disease, stage 3 unspecified Status: Chronic Assessment and Plan: * baseline creatinine seems to run ~ 1.5 - 2.0mg/dl * this causes him to fluctuate between CKD stage 3A and stage 3B * he has fluctuated to the high 2ish range on previous hospitalizations * presumably secondary to hypertension, DM, vascular disease, BPH, neurogenic bladder, recurrent UTIs, and age-change (3) UTI (urinary tract infection): Qualifiers: Urinary tract infection type: acute cystitis Hematuria presence: w ithout hematuria Qualified Code(s): N30.00 - Acute cystitis without hematuria Code(s): N39.0 - Urinary tract infection, site not specified Status: Acute Assessment and Plan: * admission UA highly suggestive: * complicated by indwelling perdomo catheter * follow culture data * on antibiotics (4) Pneumonia: Qualifiers: Laterality: left Lung location: lower lobe of lung Pneumonia type: due to unspecified organism Qualified Code(s): J18.9 - Pneumonia, unspecified organism Code(s): J18.9 - Pneumonia, unspecified organism Status: Acute Assessment and Plan: * admission CXR suggestive * follow culture data * on antibiotics * no respiratory distress and no oxygen requirements * continue supportive therapy (5) Neurogenic bladder: Code(s): N31.9 - Neuromuscular dysfunction of bladder, unspecified Status: Acute Assessment and Plan: * chronic perdomo catheter * exchanged in ER on admission * Urology recommendations noted regarding renal ultrasound findings (6) Anemia: Qualifiers: Anemia type: iron deficiency Iron deficiency anemia type: chronic blood loss Qualified Code(s): D50.0 - Iron deficiency anemia secondary to blood loss (chronic) Code(s): D64.9 - Anemia, unspecified Status: Acute Assessment and Plan: * presumably due to LEANDRO, CKD, acute illness/infection, and IVFs * started on Epogen while in hospital * follow trend of H/H (7) Hypertension: Qualifiers: Hypertension type: primary hypertension Qualified Code(s): I10 - Essential (primary) hypertension Code(s): I10 - Essential (primary) hypertension Status: Chronic Assessment and Plan: * relatively stable * continue current medications * follow trend of hemodynamics (8) Diabetes: Qualifiers: Diabetes mellitus type: type 2 Diabetes mellitus usp insulin use: without usp use Diabetes mellitus complication status: without complication Qualified Code(s): E11.9 - Type 2 diabetes mellitus without complications Code(s): E11.9 - Type 2 diabetes mellitus without complications Status: Chronic Assessment and Plan: * follow accu-cheks * glycemic control per hospitalist Will continue to follow. L Subjective Date/time seen: 05/20/25 11:01 Interval history: Follow-up for acute kidney injury/acute renal failure on chronic kidney disease. Chart reviewed since last seen -- improvement in renal function/creatinine noted since admission albeit extremely slowly; no apparent distress or acute complaints other than fatigue/weakness; no other issues/events overnight or earlier this AM. Exam 2 Narrative: General: elderly but WD/WN male in NAD Heart: normal S1 and S2; no rub Lungs: clear but distant breath sounds Abdomen: soft, nontender, nondistended, positive bowel sounds Extremities: no cyanosis or clubbing; no edema Skin: warm and dry Objective Data Vital Signs Vital Signs: Vital Signs Temp Pulse Resp BP Pulse Ox O2 Del Method 05/20/25 11:00 97.3 F L 72 18 137/76 100 05/20/25 08:49 80 05/20/25 08:00 Room Air 05/20/25 06:00 99.1 F 80 24 H 150/83 H 99 05/19/25 21:57 16 05/19/25 21:28 97.4 F L 82 24 H 159/76 H 99 05/19/25 20:00 Room Air Intake/Output Intake/Output: Intake & Output 05/17/25 05/18/25 05/19/25 05/20/25 23:59 23:59 23:59 23:59 Intake Total 9407 607 6395 3023.8 Output Total 3750 4749 2187 1999 [facility]118 -1210 -482 1023.8 Meds/Results Medications: Active Medications Generic Name Dose Route Start Last Admin Trade Name Freq PRN Reason Stop Dose Admin Acetaminophen 650 mg 05/15/25 13:24 05/15/25 19:50 Acetaminophen 325 Mg Tablet PO 650 mg Q6H PRN Administration Mild Pain (1-3) or Fever Amlodipine Besylate 2.5 mg 05/18/25 10:20 05/20/25 08:49 Amlodipine Besylate 2.5 Mg Tablet PO 2.5 mg QAM BASSEM Administration Apixaban 5 mg 05/15/25 22:30 05/20/25 08:49 Apixaban 5 Mg Tablet PO 5 mg Q12HR BASSEM Administration Atorvastatin Calcium 40 mg 05/16/25 09:00 05/20/25 08:49 Atorvastatin 40 Mg Tablet PO 40 mg DAILY BASSEM Administration Benzocaine 1 lozenge 05/19/25 11:33 Benzocaine/Menthol (*Bkc) 18 Ea Lozenge PO PRN PRN Sore Throat Benzonatate 100 mg 05/15/25 13:24 05/19/25 11:47 Benzonatate 100 Mg Capsule PO 100 mg TID PRN Administration Cough Dextrose 12.5 gm 05/15/25 13:27 Dextrose 50% 25 Gm/50 Ml Syringe IV PUSH PRN PRN Hypoglycemia Protocol Epoetin Abhay-epbx 10,000 units 05/19/25 08:40 05/19/25 09:26 Epoetin Abhay-Epbx 10,000 Units/Ml Vial SUB-Q 10,000 units TUTHSA@09 BASSEM Administration Finasteride 5 mg 05/16/25 09:00 05/20/25 08:50 Finasteride 5 Mg Tablet PO 5 mg QAM BASSEM Administration Glucagon 1 mg 05/15/25 13:27 Glucagon For Inj 1 Mg Vial IM PRN PRN Hypoglycemia Protocol Glucose 15 gm 05/15/25 13:27 Glucose Oral Gel 15 Gm Of Glucse In 37.5 Gm Tube PO PRN PRN Hypoglycemia Protocol Guaifenesin 600 mg 05/15/25 13:50 05/20/25 08:50 Guaifenesin 12 Hr 600 Mg Tabcr PO 600 mg Q12HR BASSEM Administration Cefepime HCl 1 gm in 50 mls @ 100 mls/hr 05/15/25 18:00 05/20/25 17:03 Maxipime 1 Gm/Ns 50 Ml IVPB 05/21/25 17:59 100 mls/hr Q12H BASSEM Administration Dextrose 1,000 mls @ 100 mls/hr 05/15/25 13:27 Dextrose 5% 1,000 Ml IVPB PRN PRN Hypoglycemia Protocol Sodium Chloride 1,000 mls @ 75 mls/hr 05/18/25 10:15 05/20/25 16:59 Normal Saline Iv IV CONT 75 mls/hr .[id number] BASSEM Administration Insulin Aspart 2 - 5 units 05/15/25 17:00 05/20/25 17:04 Insulin Aspart (*Bkc) 100 Units/Ml SUB-Q Not Given TIDWM BASSEM Protocol Metoprolol Tartrate 50 mg 05/15/25 22:30 05/20/25 08:49 Metoprolol Tartrate 50 Mg Tab PO 50 mg Q12HR BASSEM Administration Mirtazapine 15 mg 05/15/25 22:30 05/19/25 20:47 Mirtazapine 15 Mg Tablet PO 15 mg HS BASSEM Administration Sodium Bicarbonate 1,300 mg 05/20/25 10:00 05/20/25 16:58 Sodium Bicarbonate Tab 650 Mg Tablet PO 1,300 mg BID BASSEM Administration Radiology Results: ITS Impressions Renal Ultrasound 05/15/25 14:00 IMPRESSION: 1. Normal kidneys without hydronephrosis. 2. Mild thickening of the bladder wall with irregular mucosal surface, consistent which is somewhat limited by partially decompressed state. Differential would include cystitis either acute or chronic which is suggested by the appearance on prior CT, sequela of chronic outlet obstruction or malignancy. Correlate with urinalysis and clinical history. Consider cystoscopy for further evaluation as clinically indicated. Chest X-Ray 05/19/25 07:18 Impression: Clear lungs. Labs Labs: Laboratory Tests 05/20/25 06:31 05/20/25 06:31 Calcium 7.9 L Total Bilirubin 0.5 AST 36 ALT 31 Alkaline Phosphatase 157 H Total Protein 6.5 Albumin 2.8 L
[2025-05-20] MEDS: SODIUM BICARBONATE TAB 650 MG TABLET 1300 MG PO ×2 (11:59→16:58)
[2025-05-20 14:00] VITALS: BP 137/76; PULSE 72; RESP 18; TEMP 36.3; O2SAT 100
--- NOTE | 2025-05-20 14:27 | P.PNIM_ITS ---
Progress Note: A&P Assessment and Plan (1) Mental status change resolved: Code(s): Z86.59 - Personal history of other mental and behavioral disorders Status: Acute (2) Acute kidney failure: Qualifiers: Acute renal failure type: unspecified Qualified Code(s): N17.9 - Acute kidney failure, unspecified Code(s): N17.9 - Acute kidney failure, unspecified Status: Acute Plan (1) Acute kidney injury superimposed on CKD: Code(s): N17.9 - Acute kidney failure, unspecified; N18.9 - Chronic kidney disease, unspecified Status: Acute Assessment and Plan: Patient recently admitted here after he was found down and has no recollection of events. He was living at home independently. He was treated for a UTI, star lisa on ceftriaxone. UA grew Enterobacter susceptible to Bactrim, discharged with same. UA today equivocal for infection, however started on antibiotics. For output in the ED despite Perdomo exchange may indicate there is a dehydration component. Will check labs and renal ultrasound. IV fluids. Nephrology consulted. Renal ultrasound showed irregular mucosal surface of the bladder, could be related to chronic outlet obstruction or malignancy. No prior cystoscopy on file, will consult Urology for evaluation for possible need for cystoscopy. as per urology continue perdomo watch UO and BMP Appreciate consultation of urologist and range technician Creatinine 4.49 slightly improving (2) Pneumonia: Qualifiers: Laterality: left Lung location: lower lobe of lung Pneumonia type: due to unspecified organism Qualified Code(s): J18.9 - Pneumonia, unspecified organism Code(s): J18.9 - Pneumonia, unspecified organism Status: Acute Assessment and Plan: - CXR: Left basilar atelectasis versus pneumonia. - complicating/risk factors: Recent hospitalization - started on ceftriaxone and azithromycin, exchanged it to cefepime and doxycycline. -pt now on RA Patient still has cough, denies dyspnea Continue cefepime IV (3) UTI (urinary tract infection): Qualifiers: Urinary tract infection type: acute cystitis Hematuria presence: without hematuria Qualified Code(s): N30.00 - Acute cystitis without hematuria Code(s): N39.0 - Urinary tract infection, site not specified Status: Acute Assessment and Plan: - previous micro reviewed, Enterobacter on 04/19 that was resistant to Augmentin and/Ancef, intermediate to Macrobid. Ceftriaxone sensitivities not listed. 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 mellitus longterm insulin use: without longterm use Diabetes mellitus complication status: without complication Qualified Code(s): E11.9 - Type 2 diabetes mellitus without complications Code(s): E11.9 - Type 2 diabetes mellitus without complications Status: Chronic Assessment and Plan: -- CLAUDIA bynum - A1C 6.7% in September of 2024, updating (6) Hypertension: Qualifiers: Hypertension type: primary hypertension Qualified Code(s): I10 - Essential (primary) hypertension Code(s): I10 - Essential (primary) hypertension Status: Chronic Assessment and Plan: Controlled - continue home medications: Metoprolol Subjective Date/time seen: 05/20/25 14:27 Interval history: I saw exam patient today. Patient mental status improving, able to engage conversation Patient feels tired. Patient denies abdomen pain nausea vomiting. Appetite improving Objective Data Vital Signs Vital Signs: Vital Signs - 24 hr 05/19/25 20:00 05/19/25 21:28 05/19/25 21:57 Temperature 97.4 F L Pulse Rate 82 Respiratory Rate 24 H 16 Blood Pressure 159/76 H Pulse Oximetry 99 Oxygen Delivery Room Air 05/20/25 06:00 05/20/25 08:00 05/20/25 08:49 Temperature 99.1 F Pulse Rate 80 80 Respiratory Rate 24 H Blood Pressure 150/83 H Pulse Oximetry 99 Oxygen Delivery Room Air Intake/Output Intake/Output: Intake & Output 05/17/25 05/18/25 05/19/25 05/20/25 23:59 23:59 23:59 23:59 Intake Total 2955 384 1447 1283.8 Output Total 1750 1750 2700 1150 Balance -118 -1210 -482 133.8 Meds/Results Medications: Active Medications Generic Name Dose Route Start Last Admin Trade Name Freq PRN Reason Stop Dose Admin Acetaminophen 650 mg 05/15/25 13:24 05/15/25 19:50 Acetaminophen 325 Mg Tablet PO 650 mg Q6H PRN Administration Mild Pain (1-3) or Fever Amlodipine Besylate 2.5 mg 05/18/25 10:20 05/20/25 08:49 Amlodipine Besylate 2.5 Mg Tablet PO 2.5 mg QAM BASSEM Administration Apixaban 5 mg 05/15/25 22:30 05/20/25 08:49 Apixaban 5 Mg Tablet PO 5 mg Q12HR BASSEM Administration Atorvastatin Calcium 40 mg 05/16/25 09:00 05/20/25 08:49 Atorvastatin 40 Mg Tablet PO 40 mg DAILY BASSEM Administration Benzocaine 1 lozenge 05/19/25 11:33 Benzocaine/Menthol (*Bkc) 18 Ea Lozenge PO PRN PRN Sore Throat Benzonatate 100 mg 05/15/25 13:24 05/19/25 11:47 Benzonatate 100 Mg Capsule PO 100 mg TID PRN Administration Cough Dextrose 12.5 gm 05/15/25 13:27 Dextrose 50% 25 Gm/50 Ml Syringe IV PUSH PRN PRN Hypoglycemia Protocol Epoetin Abhay-epbx 10,000 units 05/19/25 08:40 05/19/25 09:26 Epoetin Abhay-Epbx 10,000 Units/Ml Vial SUB-Q 10,000 units TUTHSA@09 BASSEM Administration Finasteride 5 mg 05/16/25 09:00 05/20/25 08:50 Finasteride 5 Mg Tablet PO 5 mg QAM BASSEM Administration Glucagon 1 mg 05/15/25 13:27 Glucagon For Inj 1 Mg Vial IM PRN PRN Hypoglycemia Protocol Glucose 15 gm 05/15/25 13:27 Glucose Oral Gel 15 Gm Of Glucse In 37.5 Gm Tube PO PRN PRN Hypoglycemia Protocol Guaifenesin 600 mg 05/15/25 13:50 05/20/25 08:50 Guaifenesin 12 Hr 600 Mg Tabcr PO 600 mg Q12HR BASSEM Administration Cefepime HCl 1 gm in 50 mls @ 100 mls/hr 05/15/25 18:00 05/20/25 05:54 Maxipime 1 Gm/Ns 50 Ml IVPB 05/21/25 17:59 Infused Q12H BASSEM Infusion Dextrose 1,000 mls @ 100 mls/hr 05/15/25 13:27 Dextrose 5% 1,000 Ml IVPB PRN PRN Hypoglycemia Protocol Sodium Chloride 1,000 mls @ 75 mls/hr 05/18/25 10:15 05/20/25 10:42 Normal Saline Iv IV CONT Not Given .[id number] [facility] Insulin Aspart 2 - 5 units 05/15/25 17:00 05/20/25 11:50 Insulin Aspart (*Bkc) 100 Units/Ml SUB-Q Not Given TIDWM [facility] Protocol Metoprolol Tartrate 50 mg 05/15/25 22:30 05/20/25 08:49 Metoprolol Tartrate 50 Mg Tab PO 50 mg Q12HR BASSEM Administration Mirtazapine 15 mg 05/15/25 22:30 05/19/25 20:47 Mirtazapine 15 Mg Tablet PO 15 mg HS BASSEM Administration Sodium Bicarbonate 1,300 mg 05/20/25 10:00 05/20/25 11:59 Sodium Bicarbonate Tab 650 Mg Tablet PO 1,300 mg BID BASSEM Administration Radiology Results: ITS Impressions Renal Ultrasound 05/15/25 14:00 IMPRESSION: 1. Normal kidneys without hydronephrosis. 2. Mild thickening of the bladder wall with irregular mucosal surface, consistent which is somewhat limited by partially decompressed state. Differential would include cystitis either acute or chronic which is suggested by the appearance on prior CT, sequela of chronic outlet obstruction or malignancy. Correlate with urinalysis and clinical history. Consider cystoscopy for further evaluation as clinically indicated. Chest X-Ray 05/19/25 07:18 Impression: Clear lungs. Labs Labs: Laboratory Results - last 24 hr 05/19/25 05/19/25 05/20/25 16:45 20:25 06:31 WBC 9.4 RBC 2.67 L Hgb 8.0 L Hct 25.2 L MCV 94.4 MCH 30.0 MCHC 31.7 L RDW 13.7 Plt Count 273 MPV 8.4 Immature Gran % (Auto) 2.6 H Neut % (Auto) 68.3 Lymph % (Auto) 14.0 L [place] % (Auto) 10.9 H Eos % (Auto) 3.7 Baso % (Auto) 0.5 Lymph # (Auto) 1.32 [place] # (Auto) 1.0 H Eos # (Auto) 0.4 H Baso # (Auto) 0.1 Abs Immat Gran (auto) 0.24 H Absolute Neuts (auto) 6.4 Absolute Nucleated RBC 0.000 Nucleated RBC % 0.0 Sodium 137 Potassium 3.5 Chloride 109 H Carbon Dioxide 14 L Anion Gap 14 H BUN 77 H Creatinine 4.49 H Estim Creat Clear Calc 14 Estimated GFR 13 L Glucose 83 POC Capillary Glucose 110 H 96 Calcium 7.9 L Total Bilirubin 0.5 AST 36 ALT 31 Alkaline Phosphatase 157 H Total Protein 6.5 Albumin 2.8 L 05/20/25 05/20/25 07:21 11:14 WBC RBC Hgb Hct MCV MCH MCHC RDW Plt Count MPV Immature Gran % (Auto) Neut % (Auto) Lymph % (Auto) [place] % (Auto) Eos % (Auto) Baso % (Auto) Lymph # (Auto) [place] # (Auto) Eos # (Auto) Baso # (Auto) Abs Immat Gran (auto) Absolute Neuts (auto) Absolute Nucleated RBC Nucleated RBC % Sodium Potassium Chloride Carbon Dioxide Anion Gap BUN Creatinine Estim Creat Clear Calc Estimated GFR Glucose POC Capillary Glucose 83 93 Calcium Total Bilirubin AST ALT Alkaline Phosphatase Total Protein Albumin
[2025-05-20 20:52] VITALS: PULSE 74
[2025-05-20 21:07] VITALS: BP 165/71; PULSE 77; RESP 16; TEMP 36.8; O2SAT 100
[2025-05-20 21:30] VITALS: PULSE 74
[2025-05-20] MEDS: MIRTAZAPINE 15 MG TABLET PO (21:31)
[2025-05-21] MEDS: CEFEPIME 1 GM/NS 50 ML 1 GM/50 ML BAG IVPB (05:15)
[2025-05-21 05:21] VITALS: BP 161/67; PULSE 68; RESP 14; TEMP 36.5; O2SAT 100
[2025-05-21 06:41] LABS: Albumin Level 2.7 g/dL (3.5-5.1); Anion Gap 12 mmol/L (4-12); Blood Urea Nitrogen 73 mg/dL (9-20); Calcium 7.7 mg/dL (8.4-10.2); Carbon Dioxide 12 mmol/L (22-30); Chloride 111 mmol/L (98-107); Estimated CRCL calculation 16 ml/min; Estimated Glomerular Filt Rate 15; Glucose 75 mg/dL (65-110); Potassium 3.3 mmol/L (3.4-5.0); Sodium 135 mmol/L (137-145)
[2025-05-21] MEDS: guaiFENesin 12 HR 600 MG TABCR PO ×2 (09:00→20:30)
[2025-05-21] MEDS: SODIUM BICARBONATE TAB 650 MG TABLET 1300 MG PO ×3 (09:00→16:11)
[2025-05-21] MEDS: APIXABAN 5 MG TABLET PO ×2 (09:00→20:31)
[2025-05-21] MEDS: ATORVASTATIN 40 MG TABLET PO (09:01)
[2025-05-21] MEDS: METOPROLOL TARTRATE 50 MG TAB PO ×2 (09:01→20:27)
[2025-05-21] MEDS: EPOETIN ALFA-EPBX 10,000 UNITS/ML VIAL 10000 UNITS SUB-Q (09:08)
[2025-05-21] MEDS: FINASTERIDE 5 MG TABLET PO (09:08)
[2025-05-21] MEDS: SODIUM CHLORIDE 0.9% IV 1,000 ML 75 ML IV CONT ×2 (09:50→23:21)
[2025-05-21] MEDS: POTASSIUM CHLORIDE 20 MEQ ER TABLET PO (09:51)
--- NOTE | 2025-05-21 10:00 | P.PNNP_ITS ---
Progress Note: A&P Assessment and Plan (1) Acute kidney injury: Code(s): N17.9 - Acute kidney failure, unspecified Status: Acute Assessment and Plan: * slow improvement noted * as noted by admission labs * evaluation to date noted: * renal ultrasound w/o acute obstruction * UA suggestive of infection * urine electrolytes non-prerenal * urine eosinophils * proteinuria noted * CPK low/normal * etiology not entirely clear - possibly related to: * prerenal factors * infection (UTI +/- pneumonia) * perdomo obstruction? * other?? * perdomo catheter exchanged in ER * on antibiotics for presumed UTI and pneumonia * ongoing IV fluids at this time * follow trend of repeat labs and UOP (2) Stage 3 chronic kidney disease: Code(s): N18.30 - Chronic kidney disease, stage 3 unspecified Status: Chronic Assessment and Plan: * baseline creatinine seems to run ~ 1.5 - 2.0mg/dl * this causes him to fluctuate between CKD stage 3A and stage 3B * he has fluctuated to the high 2ish range on previous hospitalizations * presumably secondary to hypertension, DM, vascular disease, BPH, neurogenic bladder, recurrent UTIs, and age-change (3) UTI (urinary tract infection): Qualifiers: Urinary tract infection type: acute cystitis Hematuria presence: w ithout hematuria Qualified Code(s): N30.00 - Acute cystitis without hematuria Code(s): N39.0 - Urinary tract infection, site not specified Status: Acute Assessment and Plan: * admission UA highly suggestive: * complicated by indwelling perdomo catheter * follow culture data * on antibiotics (4) Pneumonia: Qualifiers: Laterality: left Lung location: lower lobe of lung Pneumonia type: due to unspecified organism Qualified Code(s): J18.9 - Pneumonia, unspecified organism Code(s): J18.9 - Pneumonia, unspecified organism Status: Acute Assessment and Plan: * admission CXR suggestive * follow culture data * on antibiotics * no respiratory distress and no oxygen requirements * continue supportive therapy (5) Neurogenic bladder: Code(s): N31.9 - Neuromuscular dysfunction of bladder, unspecified Status: Acute Assessment and Plan: * chronic perdomo catheter * exchanged in ER on admission * Urology recommendations noted regarding renal ultrasound findings (6) Anemia: Qualifiers: Anemia type: iron deficiency Iron deficiency anemia type: chronic blood loss Qualified Code(s): D50.0 - Iron deficiency anemia secondary to blood loss (chronic) Code(s): D64.9 - Anemia, unspecified Status: Acute Assessment and Plan: * presumably due to LEANDRO, CKD, acute illness/infection, and IVFs * started on Epogen while in hospital * follow trend of H/H (7) Hypertension: Qualifiers: Hypertension type: primary hypertension Qualified Code(s): I10 - Essential (primary) hypertension Code(s): I10 - Essential (primary) hypertension Status: Chronic Assessment and Plan: * relatively stable * continue current medications * follow trend of hemodynamics (8) Diabetes: Qualifiers: Diabetes mellitus type: type 2 Diabetes mellitus alf insulin use: without alf use Diabetes mellitus complication status: without complication Qualified Code(s): E11.9 - Type 2 diabetes mellitus without complications Code(s): E11.9 - Type 2 diabetes mellitus without complications Status: Chronic Assessment and Plan: * follow accu-cheks * glycemic control per hospitalist Will continue to follow. L Subjective Date/time seen: 05/21/25 10:00 Interval history: Follow-up for acute kidney injury/acute renal failure on chronic kidney disease. Renal function/creatinine continues to slowly improve with current interventions/therapy; otherwise, no apparent distress noted other than fatigue and generalized weakness; eating and drinking okay; no issues.events overnight or earlier today. Exam 2 Narrative: General: elderly but WD/WN male in NAD Heart: normal S1 and S2; no rub Lungs: clear but distant breath sounds Abdomen: soft, nontender, nondistended, positive bowel sounds Extremities: no cyanosis or clubbing; no edema Skin: warm and intact Objective Data Vital Signs Vital Signs: Vital Signs Temp Pulse Resp BP Pulse Ox O2 Del Method 05/21/25 07:30 Room Air 05/21/25 05:21 97.7 F 68 14 161/67 H 100 05/20/25 21:30 74 05/20/25 21:07 98.3 F 77 16 165/71 H 100 05/20/25 20:52 74 05/20/25 20:00 Room Air 05/20/25 14:00 97.3 F L 72 18 137/76 100 Intake/Output Intake/Output: Intake & Output 05/18/25 05/19/25 05/20/25 05/21/25 23:59 23:59 23:59 23:59 Intake Total 540 2218 3073.8 1200 Output Total 7429 [address] [place], [place] [id number] -832 1073.8 -100 Meds/Results Medications: Active Medications Generic Name Dose Route Start Last Admin Trade Name Freq PRN Reason Stop Dose Admin Acetaminophen 650 mg 05/15/25 13:24 05/15/25 19:50 Acetaminophen 325 Mg Tablet PO 650 mg Q6H PRN Administration Mild Pain (1-3) or Fever Amlodipine Besylate 2.5 mg 05/18/25 10:20 05/21/25 09:01 Amlodipine Besylate 2.5 Mg Tablet PO 2.5 mg QAM BASSEM Administration Apixaban 5 mg 05/20/25 21:15 05/21/25 09:00 Apixaban 5 Mg Tablet PO 5 mg Q12HR BASSEM Administration Atorvastatin Calcium 40 mg 05/16/25 09:00 05/21/25 09:01 Atorvastatin 40 Mg Tablet PO 40 mg DAILY BASSEM Administration Benzocaine 1 lozenge 05/19/25 11:33 Benzocaine/Menthol (*Bkc) 18 Ea Lozenge PO PRN PRN Sore Throat Benzonatate 100 mg 05/15/25 13:24 05/19/25 11:47 Benzonatate 100 Mg Capsule PO 100 mg TID PRN Administration Cough Dextrose 12.5 gm 05/15/25 13:27 Dextrose 50% 25 Gm/50 Ml Syringe IV PUSH PRN PRN Hypoglycemia Protocol Epoetin Abhay-epbx 10,000 units 05/19/25 08:40 05/21/25 09:08 Epoetin Abhay-Epbx 10,000 Units/Ml Vial SUB-Q 10,000 units TUTHSA@09 BASSEM Administration Finasteride 5 mg 05/16/25 09:00 05/21/25 09:08 Finasteride 5 Mg Tablet PO 5 mg QAM BASSEM Administration Glucagon 1 mg 05/15/25 13:27 Glucagon For Inj 1 Mg Vial IM PRN PRN Hypoglycemia Protocol Glucose 15 gm 05/15/25 13:27 Glucose Oral Gel 15 Gm Of Glucse In 37.5 Gm Tube PO PRN PRN Hypoglycemia Protocol Guaifenesin 600 mg 05/20/25 21:15 05/21/25 09:00 Guaifenesin 12 Hr 600 Mg Tabcr PO 600 mg Q12HR BASSEM Administration Cefepime HCl 1 gm in 50 mls @ 100 mls/hr 05/15/25 18:00 05/21/25 05:45 Maxipime 1 Gm/Ns 50 Ml IVPB 05/21/25 17:59 Infused Q12H BASSEM Infusion Dextrose 1,000 mls @ 100 mls/hr 05/15/25 13:27 Dextrose 5% 1,000 Ml IVPB PRN PRN Hypoglycemia Protocol Sodium Chloride 1,000 mls @ 75 mls/hr 05/18/25 10:15 05/21/25 09:50 Normal Saline Iv IV CONT 75 mls/hr .[id number] BASSEM Administration Insulin Aspart 2 - 5 units 05/15/25 17:00 05/21/25 11:19 Insulin Aspart (*Bkc) 100 Units/Ml SUB-Q Not Given TIDWM BASSEM Protocol Metoprolol Tartrate 50 mg 05/20/25 21:15 05/21/25 09:01 Metoprolol Tartrate 50 Mg Tab PO 50 mg Q12HR BASSEM Administration Mirtazapine 15 mg 05/20/25 21:15 05/20/25 21:31 Mirtazapine 15 Mg Tablet PO 15 mg HS BASSEM Administration Sodium Bicarbonate 1,300 mg 05/21/25 13:00 Sodium Bicarbonate Tab 650 Mg Tablet PO TID BASSEM Radiology Results: ITS Impressions Renal Ultrasound 05/15/25 14:00 IMPRESSION: 1. Normal kidneys without hydronephrosis. 2. Mild thickening of the bladder wall with irregular mucosal surface, consistent which is somewhat limited by partially decompressed state. Differential would include cystitis either acute or chronic which is suggested by the appearance on prior CT, sequela of chronic outlet obstruction or malignancy. Correlate with urinalysis and clinical history. Consider cystoscopy for further evaluation as clinically indicated. Chest X-Ray 05/19/25 07:18 Impression: Clear lungs. Labs Labs: Laboratory Tests 05/20/25 06:31 05/21/25 06:19 Calcium 7.7 L Phosphorus 5.4 H Albumin 2.7 L Microbiology 05/15/25 12:10 Blood Blood Culture - Final 05/15/25 12:10 Blood Blood Culture - Final
[2025-05-21 14:00] VITALS: BP 127/73; PULSE 68; RESP 16; TEMP 36.4; O2SAT 100
--- NOTE | 2025-05-21 18:54 | PM.IMPN ---
Progress Note: A&P Assessment and Plan (1) Mental status change resolved: Code(s): Z86.59 - Personal history of other mental and behavioral disorders Status: Acute (2) Acute kidney failure: Qualifiers: Acute renal failure type: unspecified Qualified Code(s): N17.9 - Acute kidney failure, unspecified Code(s): N17.9 - Acute kidney failure, unspecified Status: Acute Plan (1) Acute kidney injury superimposed on CKD: Code(s): N17.9 - Acute kidney failure, unspecified; N18.9 - Chronic kidney disease, unspecified Status: Acute Assessment and Plan: Patient recently admitted here after he was found down and has no recollection of events. He was living at home independently. He was treated for a UTI, started on ceftriaxone. UA grew Enterobacter susceptible to Bactrim, discharged with same. UA today equivocal for infection, however started on antibiotics. For output in the ED despite Perdomo exchange may indicate there is a dehydration component. Will check labs and renal ultrasound. IV fluids. Nephrology consulted. Renal ultrasound showed irregular mucosal surface of the bladder, could be related to chronic outlet obstruction or malignancy. No prior cystoscopy on file, will consult Urology for evaluation for possible need for cystoscopy. as per urology continue perdomo watch UO and BMP Appreciate consultation of urologist and cash applications specialist Creatinine 4.49 slightly improving (2) Pneumonia: Qualifiers: Laterality: left Lung location: lower lobe of lung Pneumonia type: due to unspecified organism Qualified Code(s): J18.9 - Pneumonia, unspecified organism Code(s): J18.9 - Pneumonia, unspecified organism Status: Acute Assessment and Plan: - CXR: Left basilar atelectasis versus pneumonia. - complicating/risk factors: Recent hospitalization - started on ceftriaxone and azithromycin, exchanged it to cefepime and doxycycline. -pt now on RA Patient still has cough, denies dyspnea Continue cefepime IV (3) UTI (urinary tract infection): Qualifiers: Urinary tract infection type: acute cystitis Hematuria presence: without hematuria Qualified Code(s): N30.00 - Acute cystitis without hematuria Code(s): N39.0 - Urinary tract infection, site not specified Status: Acute Assessment and Plan: - previous micro reviewed, Enterobacter on 04/19 that was resistant to Augmentin and/Ancef, intermediate to Macrobid. Ceftriaxone sensitivities not listed. 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 mellitus procedures analyst insulin use: without procedures analyst use Diabetes mellitus complication status: without complication Qualified Code(s): E11.9 - Type 2 diabetes mellitus without complications Code(s): E11.9 - Type 2 diabetes mellitus without complications Status: Chronic Assessment and Plan: -- CLAUDIA bynum - A1C 6.7% in September of 2024, updating (6) Hypertension: Qualifiers: Hypertension type: primary hypertension Qualified Code(s): I10 - Essential (primary) hypertension Code(s): I10 - Essential (primary) hypertension Status: Chronic Assessment and Plan: Controlled - continue home medications: Metoprolol I saw exam patient today. Patient mental status improving, able to engage conversation, patient with LEANDRO presented with worsening kidney function upon arrival patient BUN/Scr was 89/6.24 his base line is 28/1.39, most likely due to dehydration as patient kidney function is improving with hydration and today his 73/4.06, will continue to hydrated the patient and monitor his kidney function, patient is seen by cash applications specialist and further recommendations to follow. patient is working with PT/OT, will monitor. Patient feels tired. Patient denies abdomen pain nausea vomiting. Appetite improving Subjective Date/time seen: 05/21/25 18:54 Interval history: I saw exam patient today. Patient mental status improving, able to engage conversation, patient with LEANDRO presented with worsening kidney function upon arrival patient BUN/Scr was 89/6.24 his base line is 28/1.39, most likely due to dehydration as patient kidney function is improving with hydration and today his 73/4.06, will continue to hydrated the patient and monitor his kidney function, patient is seen by cash applications specialist and further recommendations to follow. patient is working with PT/OT, will monitor. Patient feels tired. Patient denies abdomen pain nausea vomiting. Appetite improving Review of Systems Review of Systems: mild cough pt feels weak All systems reviewed & are unremarkable except as noted in HPI and below Exam Narrative: Patient is comfortable, NAD HEENT: eyes are clear and none icteric LUNGS:CTA HEART: RR S1S2 ABD: BS+, Soft and nontender Lower extremities: no edema SKIN: nonjaundiced Neuro: grossly intact. Objective Data Vital Signs Vital Signs: Vital Signs - 24 hr 05/20/25 20:00 05/20/25 20:52 05/20/25 21:07 Temperature 36.8 C Pulse Rate 74 77 Respiratory Rate 16 Blood Pressure 165/71 H Pulse Oximetry 100 Oxygen Delivery Room Air 05/20/25 21:30 05/21/25 05:21 05/21/25 07:30 Temperature 36.5 C Pulse Rate 74 68 Respiratory Rate 14 Blood Pressure 161/67 H Pulse Oximetry 100 Oxygen Delivery Room Air 05/21/25 14:00 Temperature 36.4 C Pulse Rate 68 Respiratory Rate 16 Blood Pressure 127/73 Pulse Oximetry 100 Oxygen Delivery Intake/Output Intake/Output: Intake & Output 05/18/25 05/19/25 05/20/25 05/21/25 23:59 23:59 23:59 23:59 Intake Total 540 2218 3073.8 1200 Output Total 1750 2700 2000 2500 Balance -1210 -482 1073.8 -1300 Meds/Results Medications: Active Medications Generic Name Dose Route Start Last Admin Trade Name Freq PRN Reason Stop Dose Admin Acetaminophen 650 mg 05/15/25 13:24 05/15/25 19:50 Acetaminophen 325 Mg Tablet PO 650 mg Q6H PRN Administration Mild Pain (1-3) or Fever Amlodipine Besylate 2.5 mg 05/18/25 10:20 05/21/25 09:01 Amlodipine Besylate 2.5 Mg Tablet PO 2.5 mg QAM BASSEM Administration Apixaban 5 mg 05/20/25 21:15 05/21/25 09:00 Apixaban 5 Mg Tablet PO 5 mg Q12HR BASSEM Administration Atorvastatin Calcium 40 mg 05/16/25 09:00 05/21/25 09:01 Atorvastatin 40 Mg Tablet PO 40 mg DAILY BASSEM Administration Benzocaine 1 lozenge 05/19/25 11:33 Benzocaine/Menthol (*Bkc) 18 Ea Lozenge PO PRN PRN Sore Throat Benzonatate 100 mg 05/15/25 13:24 05/19/25 11:47 Benzonatate 100 Mg Capsule PO 100 mg TID PRN Administration Cough Dextrose 12.5 gm 05/15/25 13:27 Dextrose 50% 25 Gm/50 Ml Syringe IV PUSH PRN PRN Hypoglycemia Protocol Epoetin Abhay-epbx 10,000 units 05/19/25 08:40 05/21/25 09:08 Epoetin Abhay-Epbx 10,000 Units/Ml Vial SUB-Q 10,000 units TUTHSA@09 BASSEM Administration Finasteride 5 mg 05/16/25 09:00 05/21/25 09:08 Finasteride 5 Mg Tablet PO 5 mg QAM BASSEM Administration Glucagon 1 mg 05/15/25 13:27 Glucagon For Inj 1 Mg Vial IM PRN PRN Hypoglycemia Protocol Glucose 15 gm 05/15/25 13:27 Glucose Oral Gel 15 Gm Of Glucse In 37.5 Gm Tube PO PRN PRN Hypoglycemia Protocol Guaifenesin 600 mg 05/20/25 21:15 05/21/25 09:00 Guaifenesin 12 Hr 600 Mg Tabcr PO 600 mg Q12HR BASSEM Administration Dextrose 1,000 mls @ 100 mls/hr 05/15/25 13:27 Dextrose 5% 1,000 Ml IVPB PRN PRN Hypoglycemia Protocol Sodium Chloride 1,000 mls @ 75 mls/hr 05/18/25 10:15 05/21/25 09:50 Normal Saline Iv IV CONT 75 mls/hr .[id number] BASSEM Administration Insulin Aspart 2 - 5 units 05/15/25 17:00 05/21/25 16:10 Insulin Aspart (*Bkc) 100 Units/Ml SUB-Q Not Given TIDWM BASSEM Protocol Metoprolol Tartrate 50 mg 05/20/25 21:15 05/21/25 09:01 Metoprolol Tartrate 50 Mg Tab PO 50 mg Q12HR BASSEM Administration Mirtazapine 15 mg 05/20/25 21:15 05/20/25 21:31 Mirtazapine 15 Mg Tablet PO 15 mg HS BASSEM Administration Sodium Bicarbonate 1,300 mg 05/21/25 13:00 05/21/25 16:11 Sodium Bicarbonate Tab 650 Mg Tablet PO 1,300 mg TID BASSEM Administration Radiology Results: ITS Impressions Renal Ultrasound 05/15/25 14:00 IMPRESSION: 1. Normal kidneys without hydronephrosis. 2. Mild thickening of the bladder wall with irregular mucosal surface, consistent which is somewhat limited by partially decompressed state. Differential would include cystitis either acute or chronic which is suggested by the appearance on prior CT, sequela of chronic outlet obstruction or malignancy. Correlate with urinalysis and clinical history. Consider cystoscopy for further evaluation as clinically indicated. Chest X-Ray 05/19/25 07:18 Impression: Clear lungs. Labs Labs: Laboratory Results - last 24 hr 05/20/25 05/21/25 05/21/25 19:25 06:19 07:19 Sodium 135 L Potassium 3.3 L Chloride 111 H Carbon Dioxide 12 L Anion Gap 12 BUN 73 H Creatinine 4.06 H Estim Creat Clear Calc 16 Estimated GFR 15 L Glucose 75 POC Capillary Glucose 88 69 Calcium 7.7 L Phosphorus 5.4 H Albumin 2.7 L 05/21/25 05/21/25 11:12 16:15 Sodium Potassium Chloride Carbon Dioxide Anion Gap BUN Creatinine Estim Creat Clear Calc Estimated GFR Glucose POC Capillary Glucose 81 94 Calcium Phosphorus Albumin Quality VTE Prophylaxis VTE prophylaxis: pharmacologic ordered
[2025-05-21 20:27] VITALS: PULSE 60
[2025-05-21] MEDS: MIRTAZAPINE 15 MG TABLET PO (20:29)
[2025-05-21 21:03] VITALS: BP 143/73; PULSE 73; RESP 16; TEMP 36.2; O2SAT 100
[2025-05-22 05:32] VITALS: BP 154/69; PULSE 62; RESP 18; TEMP 36.4; O2SAT 100
[2025-05-22 06:16] LABS: Hematocrit 24.2 % (42.0-52.0); Hemoglobin 7.5 g/dL (14.0-18.0); Immature Granulocyte Percent A 2.9 % (0-0.5); Lymphocytes Absolute Auto 2.41 K/mm3 (0.9-3.2); Mean Corpuscular HGB Conc 31.0 g/dl (32-36); Mean Corpuscular Hemoglobin 28.8 pg (26-34); Mean Corpuscular Volume 93.1 fl (80-100); Nucleated Red Blood Cells Absolute Auto 0.020 K/mm3 (0.0-0.012); Nucleated Red Blood Cells Perc 0.2 % (0.0-0.2); Platelet Count Result 274 k/mm3 (150-375); Red Blood Count 2.60 M/mm3 (4.6-6.20); White Blood Count 8.7 K/mm3 (4.5-10.0)
[2025-05-22 06:27] LABS: Albumin Level 2.9 g/dL (3.5-5.1); Anion Gap 13 mmol/L (4-12); Blood Urea Nitrogen 68 mg/dL (9-20); Calcium 7.8 mg/dL (8.4-10.2); Carbon Dioxide 16 mmol/L (22-30); Chloride 112 mmol/L (98-107); Estimated CRCL calculation 17 ml/min; Estimated Glomerular Filt Rate 16; Glucose 82 mg/dL (65-110); Potassium 2.9 mmol/L (3.4-5.0); Sodium 141 mmol/L (137-145)
[2025-05-22] MEDS: POTASSIUM CHLORIDE 20 MEQ PACKET (FOR LIQUID) 40 MEQ PO (06:48)
[2025-05-22 08:09] LABS: Magnesium 1.1 mg/dL (1.6-2.3)
[2025-05-22 08:30] VITALS: PULSE 65
[2025-05-22] MEDS: ATORVASTATIN 40 MG TABLET PO (08:30)
[2025-05-22] MEDS: FINASTERIDE 5 MG TABLET PO (08:30)
[2025-05-22] MEDS: METOPROLOL TARTRATE 50 MG TAB PO ×2 (08:30→20:35)
[2025-05-22] MEDS: APIXABAN 5 MG TABLET PO ×2 (08:30→20:35)
[2025-05-22] MEDS: guaiFENesin 12 HR 600 MG TABCR PO ×2 (08:30→20:35)
[2025-05-22] MEDS: SODIUM BICARBONATE TAB 650 MG TABLET 1300 MG PO ×3 (08:30→17:04)
[2025-05-22 12:34] VITALS: BMI 23.1
--- NOTE | 2025-05-22 13:18 | P.PNNP_ITS ---
Progress Note: A&P Assessment and Plan (1) Acute kidney injury: Code(s): N17.9 - Acute kidney failure, unspecified Status: Acute Assessment and Plan: * slow improvement noted * as noted by admission labs * evaluation to date noted: * renal ultrasound w/o acute obstruction * UA suggestive of infection * urine electrolytes non-prerenal * urine eosinophils * proteinuria noted * CPK low/normal * etiology not entirely clear - possibly related to: * prerenal factors * infection (UTI +/- pneumonia) * perdomo obstruction? * other?? * perdomo catheter exchanged in ER * on antibiotics for presumed UTI and pneumonia * ongoing IV fluids at this time * follow trend of repeat labs and UOP (2) Stage 3 chronic kidney disease: Code(s): N18.30 - Chronic kidney disease, stage 3 unspecified Status: Chronic Assessment and Plan: * baseline creatinine seems to run ~ 1.5 - 2.0mg/dl * this causes him to fluctuate between CKD stage 3A and stage 3B * he has fluctuated to the high 2ish range on previous hospitalizations * presumably secondary to hypertension, DM, vascular disease, BPH, neurogenic bladder, recurrent UTIs, and age-change (3) UTI (urinary tract infection): Qualifiers: Hematuria presence: without hematuria Urinary tract infection type: a cute cystitis Qualified Code(s): N30.00 - Acute cystitis without hematuria Code(s): N39.0 - Urinary tract infection, site not specified Status: Acute Assessment and Plan: * admission UA highly suggestive: * complicated by indwelling perdomo catheter * follow culture data * on antibiotics (4) Pneumonia: Qualifiers: Laterality: left Lung location: lower lobe of lung Pneumonia type: due to unspecified organism Qualified Code(s): J18.9 - Pneumonia, unspecified organism Code(s): J18.9 - Pneumonia, unspecified organism Status: Acute Assessment and Plan: * admission CXR suggestive * follow culture data * on antibiotics * no respiratory distress and no oxygen requirements * continue supportive therapy (5) Neurogenic bladder: Code(s): N31.9 - Neuromuscular dysfunction of bladder, unspecified Status: Acute Assessment and Plan: * chronic perdomo catheter * exchanged in ER on admission * Urology recommendations noted regarding renal ultrasound findings (6) Anemia: Qualifiers: Anemia type: iron deficiency Iron deficiency anemia type: chronic blood loss Qualified Code(s): D50.0 - Iron deficiency anemia secondary to blood loss (chronic) Code(s): D64.9 - Anemia, unspecified Status: Acute Assessment and Plan: * presumably due to LEANDRO, CKD, acute illness/infection, and IVFs * started on Epogen while in hospital * follow trend of H/H (7) Hypertension: Qualifiers: Hypertension type: primary hypertension Qualified Code(s): I10 - Essential (primary) hypertension Code(s): I10 - Essential (primary) hypertension Status: Chronic Assessment and Plan: * relatively stable * continue current medications * follow trend of hemodynamics (8) Diabetes: Qualifiers: Diabetes mellitus complication status: without complication Diabetes mellitus 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 L Subjective Date/time seen: 05/22/25 13:18 Interval history: Follow-up for acute kidney injury/acute renal failure on chronic kidney disease. No new issues or problems to report; slow and steady improvement in renal function/creatinine with acceptable urine output with IVFs; tolerating antibiotic therapy as well; overall, feels reasonably well aside from fatigue. Exam 2 Narrative: General: elderly but WD/WN male in NAD Heart: normal S1 and S2; no rub Lungs: clear but distant breath sounds Abdomen: soft, nontender, nondistended, positive bowel sounds Extremities: no cyanosis or clubbing; no edema Skin: no rash Objective Data Vital Signs Vital Signs: Vital Signs Temp Pulse Resp BP Pulse Ox O2 Del Method 05/22/25 12:51 96.4 F L 57 L 16 139/65 100 05/22/25 08:30 65 05/22/25 08:00 Room Air 05/22/25 05:32 97.6 F 62 18 154/69 H 100 05/21/25 21:03 97.1 F L 73 16 143/73 H 100 05/21/25 20:27 60 Intake/Output Intake/Output: Intake & Output 05/19/25 05/20/25 05/21/25 05/22/25 23:59 23:59 23:59 23:59 Intake Total 2218 3073.8 2200 1436 Output Total 2700 1999 2500 [address]150 [place] [id number] 8803.8 -009 -867 Meds/Results Medications: Active Medications Generic Name Dose Route Start Last Admin Trade Name Freq PRN Reason Stop Dose Admin Acetaminophen 650 mg 05/15/25 13:24 05/15/25 19:50 Acetaminophen 325 Mg Tablet PO 650 mg Q6H PRN Administration Mild Pain (1-3) or Fever Amlodipine Besylate 2.5 mg 05/18/25 10:20 05/22/25 08:29 Amlodipine Besylate 2.5 Mg Tablet PO 2.5 mg QAM BASSEM Administration Apixaban 5 mg 05/20/25 21:15 05/22/25 08:30 Apixaban 5 Mg Tablet PO 5 mg Q12HR BASSEM Administration Atorvastatin Calcium 40 mg 05/16/25 09:00 05/22/25 08:30 Atorvastatin 40 Mg Tablet PO 40 mg DAILY BASSEM Administration Benzocaine 1 lozenge 05/19/25 11:33 Benzocaine/Menthol (*Bkc) 18 Ea Lozenge PO PRN PRN Sore Throat Benzonatate 100 mg 05/15/25 13:24 05/19/25 11:47 Benzonatate 100 Mg Capsule PO 100 mg TID PRN Administration Cough Dextrose 12.5 gm 05/15/25 13:27 Dextrose 50% 25 Gm/50 Ml Syringe IV PUSH PRN PRN Hypoglycemia Protocol Epoetin Abhay-epbx 10,000 units 05/19/25 08:40 05/21/25 09:08 Epoetin Abhay-Epbx 10,000 Units/Ml Vial SUB-Q 10,000 units TUTHSA@09 BASSEM Administration Finasteride 5 mg 05/16/25 09:00 05/22/25 08:30 Finasteride 5 Mg Tablet PO 5 mg QAM BASSEM Administration Glucagon 1 mg 05/15/25 13:27 Glucagon For Inj 1 Mg Vial IM PRN PRN Hypoglycemia Protocol Glucose 15 gm 05/15/25 13:27 Glucose Oral Gel 15 Gm Of Glucse In 37.5 Gm Tube PO PRN PRN Hypoglycemia Protocol Guaifenesin 600 mg 05/20/25 21:15 05/22/25 08:30 Guaifenesin 12 Hr 600 Mg Tabcr PO 600 mg Q12HR BASSEM Administration Dextrose 1,000 mls @ 100 mls/hr 05/15/25 13:27 Dextrose 5% 1,000 Ml IVPB PRN PRN Hypoglycemia Protocol Sodium Chloride 1,000 mls @ 75 mls/hr 05/18/25 10:15 05/22/25 17:03 Normal Saline Iv IV CONT 75 mls/hr .[id number] BASSEM Administration Insulin Aspart 2 - 5 units 05/15/25 17:00 05/22/25 16:16 Insulin Aspart (*Bkc) 100 Units/Ml SUB-Q Not Given TIDWM BASSEM Protocol Metoprolol Tartrate 50 mg 05/20/25 21:15 05/22/25 08:30 Metoprolol Tartrate 50 Mg Tab PO 50 mg Q12HR BASSEM Administration Mirtazapine 15 mg 05/20/25 21:15 05/21/25 20:29 Mirtazapine 15 Mg Tablet PO 15 mg HS BASSEM Administration Sodium Bicarbonate 1,300 mg 05/21/25 13:00 05/22/25 17:04 Sodium Bicarbonate Tab 650 Mg Tablet PO 1,300 mg TID BASSEM Administration Radiology Results: ITS Impressions Renal Ultrasound 05/15/25 14:00 IMPRESSION: 1. Normal kidneys without hydronephrosis. 2. Mild thickening of the bladder wall with irregular mucosal surface, consistent which is somewhat limited by partially decompressed state. Differential would include cystitis either acute or chronic which is suggested by the appearance on prior CT, sequela of chronic outlet obstruction or malignancy. Correlate with urinalysis and clinical history. Consider cystoscopy for further evaluation as clinically indicated. Chest X-Ray 05/19/25 07:18 Impression: Clear lungs. Labs Labs: Laboratory Tests 05/22/25 05:57 05/22/25 05:57 Calcium 7.8 L Phosphorus 4.6 H Magnesium 1.1 L Albumin 2.9 L
[2025-05-22 13:51] VITALS: BP 139/65; PULSE 57; RESP 16; TEMP 35.8; O2SAT 100
[2025-05-22] MEDS: SODIUM CHLORIDE 0.9% IV 1,000 ML 75 ML IV CONT (17:03)
--- NOTE | 2025-05-22 17:14 | P.PNIM_ITS ---
Progress Note: A&P Assessment and Plan (1) Mental status change resolved: Code(s): Z86.59 - Personal history of other mental and behavioral disorders Status: Acute (2) Acute kidney failure: Qualifiers: Acute renal failure type: unspecified Qualified Code(s): N17.9 - Acute kidney failure, unspecified Code(s): N17.9 - Acute kidney failure, unspecified Status: Acute Plan (1) Acute kidney injury superimposed on CKD: Code(s): N17.9 - Acute kidney failure, unspecified; N18.9 - Chronic kidney disease, unspecified Status: Acute Assessment and Plan: Patient recently admitted here after he was found down and has no recollection of events. He was living at home independently. He was treated for a UTI, star lisa on ceftriaxone. UA grew Enterobacter susceptible to Bactrim, discharged with same. UA today equivocal for infection, however started on antibiotics. For output in the ED despite Perdomo exchange may indicate there is a dehydration component. Will check labs and renal ultrasound. IV fluids. Nephrology consulted. Renal ultrasound showed irregular mucosal surface of the bladder, could be related to chronic outlet obstruction or malignancy. No prior cystoscopy on file, will consult Urology for evaluation for possible need for cystoscopy. as per urology continue perdomo watch UO and BMP Appreciate consultation of urologist and hyperbaric technician Creatinine 4.49 slightly improving (2) Pneumonia: Qualifiers: Laterality: left Lung location: lower lobe of lung Pneumonia type: due to unspecified organism Qualified Code(s): J18.9 - Pneumonia, unspecified organism Code(s): J18.9 - Pneumonia, unspecified organism Status: Acute Assessment and Plan: - CXR: Left basilar atelectasis versus pneumonia. - complicating/risk factors: Recent hospitalization - started on ceftriaxone and azithromycin, exchanged it to cefepime and doxycycline. -pt now on RA Patient still has cough, denies dyspnea Continue cefepime IV (3) UTI (urinary tract infection): Qualifiers: Urinary tract infection type: acute cystitis Hematuria presence: without hematuria Qualified Code(s): N30.00 - Acute cystitis without hematuria Code(s): N39.0 - Urinary tract infection, site not specified Status: Acute Assessment and Plan: - previous micro reviewed, Enterobacter on 04/19 that was resistant to Augmentin and/Ancef, intermediate to Macrobid. Ceftriaxone sensitivities not listed. 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 mellitus care home insulin use: without care home use Diabetes mellitus complication status: without complication Qualified Code(s): E11.9 - Type 2 diabetes mellitus without complications Code(s): E11.9 - Type 2 diabetes mellitus without complications Status: Chronic Assessment and Plan: -- CLAUDIA bynum - A1C 6.7% in September of 2024, updating (6) Hypertension: Qualifiers: Hypertension type: primary hypertension Qualified Code(s): I10 - Essential (primary) hypertension Code(s): I10 - Essential (primary) hypertension Status: Chronic Assessment and Plan: Controlled - continue home medications: Metoprolol I saw exam patient today. Patient mental status improving, able to engage conversation, patient with LEANDRO presented with worsening kidney function upon arrival patient BUN/Scr was 89/6.24 his base line is 28/1.39, most likely due to dehydration as patient kidney function is improving with hydration and today his 68/3.74, renal US showed normal kindney without hydronephrosis, will continue to hydrated the patient and monitor his kidney function, patient is seen by hyperbaric technician and further recommendations to follow. patient is working with PT/OT, will monitor. Patient feels tired. Patient denies abdomen pain nausea vomiting. Appetite improving Subjective Date/time seen: 05/22/25 17:14 Interval history: I saw exam patient today. Patient mental status improving, able to engage conversation, patient with LEANDRO presented with worsening kidney function upon arrival patient BUN/Scr was 89/6.24 his base line is 28/1.39, most likely due to dehydration as patient kidney function is improving with hydration and today his 68/3.74, renal US showed normal kindney without hydronephrosis, will continue to hydrated the patient and monitor his kidney function, patient is seen by hyperbaric technician and further recommendations to follow. patient is working with PT/OT, will monitor. Patient feels tired. Patient denies abdomen pain nausea vomiting. Appetite improving Review of Systems Review of Systems: mild cough pt feels weak All systems reviewed & are unremarkable except as noted in HPI and below Exam Narrative: Patient is comfortable, NAD HEENT: eyes are clear and none icteric LUNGS:CTA HEART: RR S1S2 ABD: BS+, Soft and nontender Lower extremities: no edema SKIN: nonjaundiced Neuro: grossly intact. Objective Data Vital Signs Vital Signs: Vital Signs - 24 hr 05/21/25 20:27 05/21/25 21:03 05/22/25 05:32 Temperature 36.2 C L 36.4 C Pulse Rate 60 73 62 Respiratory Rate 16 18 Blood Pressure 143/73 H 154/69 H Pulse Oximetry 100 100 Oxygen Delivery 05/22/25 08:00 05/22/25 08:30 05/22/25 13:51 Temperature 35.8 C L Pulse Rate 65 57 L Respiratory Rate 16 Blood Pressure 139/65 Pulse Oximetry 100 Oxygen Delivery Room Air Intake/Output Intake/Output: Intake & Output 05/19/25 05/20/25 05/21/25 05/22/25 23:59 23:59 23:59 23:59 Intake Total 2218 3073.8 2200 1200 Output Total 2700 2000 2500 2150 Balance -482 1073.8 300 950 Meds/Results Medications: Active Medications Generic Name Dose Route Start Last Admin Trade Name Freq PRN Reason Stop Dose Admin Acetaminophen 650 mg 05/15/25 13:24 05/15/25 19:50 Acetaminophen 325 Mg Tablet PO 650 mg Q6H PRN Administration Mild Pain (1-3) or Fever Amlodipine Besylate 2.5 mg 05/18/25 10:20 05/22/25 08:29 Amlodipine Besylate 2.5 Mg Tablet PO 2.5 mg QAM BASSEM Administration Apixaban 5 mg 05/20/25 21:15 05/22/25 08:30 Apixaban 5 Mg Tablet PO 5 mg Q12HR BASSEM Administration Atorvastatin Calcium 40 mg 05/16/25 09:00 05/22/25 08:30 Atorvastatin 40 Mg Tablet PO 40 mg DAILY BASSEM Administration Benzocaine 1 lozenge 05/19/25 11:33 Benzocaine/Menthol (*Bkc) 18 Ea Lozenge PO PRN PRN Sore Throat Benzonatate 100 mg 05/15/25 13:24 05/19/25 11:47 Benzonatate 100 Mg Capsule PO 100 mg TID PRN Administration Cough Dextrose 12.5 gm 05/15/25 13:27 Dextrose 50% 25 Gm/50 Ml Syringe IV PUSH PRN PRN Hypoglycemia Protocol Epoetin Abhay-epbx 10,000 units 05/19/25 08:40 05/21/25 09:08 Epoetin Abhay-Epbx 10,000 Units/Ml Vial SUB-Q 10,000 units TUTHSA@09 BASSEM Administration Finasteride 5 mg 05/16/25 09:00 05/22/25 08:30 Finasteride 5 Mg Tablet PO 5 mg QAM BASSEM Administration Glucagon 1 mg 05/15/25 13:27 Glucagon For Inj 1 Mg Vial IM PRN PRN Hypoglycemia Protocol Glucose 15 gm 05/15/25 13:27 Glucose Oral Gel 15 Gm Of Glucse In 37.5 Gm Tube PO PRN PRN Hypoglycemia Protocol Guaifenesin 600 mg 05/20/25 21:15 05/22/25 08:30 Guaifenesin 12 Hr 600 Mg Tabcr PO 600 mg Q12HR BASSEM Administration Dextrose 1,000 mls @ 100 mls/hr 05/15/25 13:27 Dextrose 5% 1,000 Ml IVPB PRN PRN Hypoglycemia Protocol Sodium Chloride 1,000 mls @ 75 mls/hr 05/18/25 10:15 05/22/25 17:03 Normal Saline Iv IV CONT 75 mls/hr .[id number] BASSEM Administration Insulin Aspart 2 - 5 units 05/15/25 17:00 05/22/25 16:16 Insulin Aspart (*Bkc) 100 Units/Ml SUB-Q Not Given TIDWM BASSEM Protocol Metoprolol Tartrate 50 mg 05/20/25 21:15 05/22/25 08:30 Metoprolol Tartrate 50 Mg Tab PO 50 mg Q12HR BASSEM Administration Mirtazapine 15 mg 05/20/25 21:15 05/21/25 20:29 Mirtazapine 15 Mg Tablet PO 15 mg HS BASSEM Administration Sodium Bicarbonate 1,300 mg 05/21/25 13:00 05/22/25 17:04 Sodium Bicarbonate Tab 650 Mg Tablet PO 1,300 mg TID BASSEM Administration Radiology Results: ITS Impressions Renal Ultrasound 05/15/25 14:00 IMPRESSION: 1. Normal kidneys without hydronephrosis. 2. Mild thickening of the bladder wall with irregular mucosal surface, consistent which is somewhat limited by partially decompressed state. Differential would include cystitis either acute or chronic which is suggested by the appearance on prior CT, sequela of chronic outlet obstruction or malignancy. Correlate with urinalysis and clinical history. Consider cystoscopy for further evaluation as clinically indicated. Chest X-Ray 05/19/25 07:18 Impression: Clear lungs. Labs Labs: Laboratory Results - last 24 hr 05/21/25 05/22/25 05/22/25 19:45 05:57 07:17 WBC 8.7 RBC 2.60 L Hgb 7.5 L Hct 24.2 L MCV 93.1 MCH 28.8 MCHC 31.0 L RDW 14.0 Plt Count 274 MPV 8.3 Immature Gran % (Auto) 2.9 H Neut % (Auto) 51.4 Lymph % (Auto) 27.7 [place] % (Auto) 12.2 H Eos % (Auto) 5.3 H Baso % (Auto) 0.5 Lymph # (Auto) 2.41 [place] # (Auto) 1.1 H Eos # (Auto) 0.5 H Baso # (Auto) 0.0 Abs Immat Gran (auto) 0.25 H Absolute Neuts (auto) 4.5 Absolute Nucleated RBC 0.020 H Nucleated RBC % 0.2 Sodium 141 Potassium 2.9 L Chloride 112 H Carbon Dioxide 16 L Anion Gap 13 H BUN 68 H Creatinine 3.74 H Estim Creat Clear Calc 17 Estimated GFR 16 L Glucose 82 POC Capillary Glucose 121 H 85 Calcium 7.8 L Phosphorus 4.6 H Magnesium 1.1 L Albumin 2.9 L 05/22/25 05/22/25 11:13 16:08 WBC RBC Hgb Hct MCV MCH MCHC RDW Plt Count MPV Immature Gran % (Auto) Neut % (Auto) Lymph % (Auto) [place] % (Auto) Eos % (Auto) Baso % (Auto) Lymph # (Auto) [place] # (Auto) Eos # (Auto) Baso # (Auto) Abs Immat Gran (auto) Absolute Neuts (auto) Absolute Nucleated RBC Nucleated RBC % Sodium Potassium Chloride Carbon Dioxide Anion Gap BUN Creatinine Estim Creat Clear Calc Estimated GFR Glucose POC Capillary Glucose 105 112 H Calcium Phosphorus Magnesium Albumin Quality VTE Prophylaxis VTE prophylaxis: pharmacologic ordered
[2025-05-22] MEDS: MIRTAZAPINE 15 MG TABLET PO (20:35)
[2025-05-22 21:36] VITALS: O2SAT 99
[2025-05-22 21:38] VITALS: BP 174/86; PULSE 71; RESP 16; TEMP 36.2; O2SAT 100
[2025-05-23 05:57] VITALS: BP 147/68; PULSE 64; RESP 16; TEMP 36.6; O2SAT 99
[2025-05-23 06:57] LABS: Hematocrit 25.5 % (42.0-52.0); Hemoglobin 8.0 g/dL (14.0-18.0); Immature Granulocyte Percent A 1.7 % (0-0.5); Lymphocytes Absolute Auto 2.75 K/mm3 (0.9-3.2); Mean Corpuscular HGB Conc 31.4 g/dl (32-36); Mean Corpuscular Hemoglobin 29.4 pg (26-34); Mean Corpuscular Volume 93.8 fl (80-100); Nucleated Red Blood Cells Absolute Auto 0.030 K/mm3 (0.0-0.012); Nucleated Red Blood Cells Perc 0.3 % (0.0-0.2); Platelet Count Result 319 k/mm3 (150-375); Red Blood Count 2.72 M/mm3 (4.6-6.20); White Blood Count 10.9 K/mm3 (4.5-10.0)
[2025-05-23 07:03] LABS: Albumin Level 2.9 g/dL (3.5-5.1); Anion Gap 12 mmol/L (4-12); Blood Urea Nitrogen 63 mg/dL (9-20); Calcium 7.4 mg/dL (8.4-10.2); Carbon Dioxide 18 mmol/L (22-30); Chloride 111 mmol/L (98-107); Estimated CRCL calculation 20 ml/min; Estimated Glomerular Filt Rate 19; Glucose 85 mg/dL (65-110); Magnesium 1.0 mg/dL (1.6-2.3); Potassium 3.5 mmol/L (3.4-5.0); Sodium 141 mmol/L (137-145)
[2025-05-23 08:11] VITALS: PULSE 78
[2025-05-23] MEDS: APIXABAN 5 MG TABLET PO ×2 (08:11→20:50)
[2025-05-23] MEDS: guaiFENesin 12 HR 600 MG TABCR PO ×2 (08:11→20:50)
[2025-05-23] MEDS: SODIUM BICARBONATE TAB 650 MG TABLET 1300 MG PO ×3 (08:11→17:00)
[2025-05-23] MEDS: ATORVASTATIN 40 MG TABLET PO (08:11)
[2025-05-23] MEDS: METOPROLOL TARTRATE 50 MG TAB PO ×2 (08:11→20:52)
[2025-05-23] MEDS: FINASTERIDE 5 MG TABLET PO (08:11)
[2025-05-23] MEDS: EPOETIN ALFA-EPBX 10,000 UNITS/ML VIAL 10000 UNITS SUB-Q (08:15)
--- NOTE | 2025-05-23 11:05 | P.PNNP_ITS ---
Progress Note: A&P Assessment and Plan (1) Acute kidney injury: Code(s): N17.9 - Acute kidney failure, unspecified Status: Acute Assessment and Plan: * slow improvement noted * as noted by admission labs * evaluation to date noted: * renal ultrasound w/o acute obstruction * UA suggestive of infection * urine electrolytes non-prerenal * urine eosinophils * proteinuria noted * CPK low/normal * etiology not entirely clear - possibly related to: * prerenal factors * infection (UTI +/- pneumonia) * perdomo obstruction? * other?? * perdomo catheter exchanged in ER * on antibiotics for presumed UTI and pneumonia * ongoing IV fluids at this time * follow trend of repeat labs and UOP (2) Stage 3 chronic kidney disease: Code(s): N18.30 - Chronic kidney disease, stage 3 unspecified Status: Chronic Assessment and Plan: * baseline creatinine seems to run ~ 1.5 - 2.0mg/dl * this causes him to fluctuate between CKD stage 3A and stage 3B * he has fluctuated to the high 2ish range on previous hospitalizations * presumably secondary to hypertension, DM, vascular disease, BPH, neurogenic bladder, recurrent UTIs, and age-change * possible new baseline creatinine??? (3) UTI (urinary tract infection): Qualifiers: Urinary tract infection type: acute cystitis Hematuria presence: w ithout hematuria Qualified Code(s): N30.00 - Acute cystitis without hematuria Code(s): N39.0 - Urinary tract infection, site not specified Status: Acute Assessment and Plan: * admission UA highly suggestive: * complicated by indwelling perdomo catheter * follow culture data * on antibiotics (4) Pneumonia: Qualifiers: Laterality: left Lung location: lower lobe of lung Pneumonia type: due to unspecified organism Qualified Code(s): J18.9 - Pneumonia, unspecified organism Code(s): J18.9 - Pneumonia, unspecified organism Status: Acute Assessment and Plan: * admission CXR suggestive * follow culture data * on antibiotics * no respiratory distress and no oxygen requirements * continue supportive therapy (5) Neurogenic bladder: Code(s): N31.9 - Neuromuscular dysfunction of bladder, unspecified Status: Acute Assessment and Plan: * chronic perdomo catheter * exchanged in ER on admission * Urology recommendations noted regarding renal ultrasound findings (6) Anemia: Qualifiers: Anemia type: iron deficiency Iron deficiency anemia type: chronic blood loss Qualified Code(s): D50.0 - Iron deficiency anemia secondary to blood loss (chronic) Code(s): D64.9 - Anemia, unspecified Status: Acute Assessment and Plan: * presumably due to LEADNRO, CKD, acute illness/infection, and IVFs * started on Epogen while in hospital * follow trend of H/H (7) Hypertension: Qualifiers: Hypertension type: primary hypertension Qualified Code(s): I10 - Essential (primary) hypertension Code(s): I10 - Essential (primary) hypertension Status: Chronic Assessment and Plan: * relatively stable * continue current medications * follow trend of hemodynamics (8) Diabetes: Qualifiers: Diabetes mellitus type: type 2 Diabetes mellitus termite inspector insulin use: without termite inspector use Diabetes mellitus complication status: without complication Qualified Code(s): E11.9 - Type 2 diabetes mellitus without complications Code(s): E11.9 - Type 2 diabetes mellitus without complications Status: Chronic Assessment and Plan: * follow accu-cheks * glycemic control per hospitalist Will continue to follow. L Subjective Date/time seen: 05/23/25 11:05 Interval history: Follow-up for acute kidney injury/acute renal failuire on chronic kidney disease. Renal function/creatinine continue to improve with IVF hydration albeit extremely slowly; no apparent distress noted at this time; no issues/events overnight or earlier this morning; no other complaints voiced when seen. Exam 2 Narrative: General: elderly but WD/WN male in NAD Heart: normal S1 and S2; no rub Lungs: clear but distant breath sounds Abdomen: soft, nontender, nondistended, positive bowel sounds Extremities: no cyanosis or clubbing; no edema Skin: no nodules Objective Data Vital Signs Vital Signs: Vital Signs Temp Pulse Resp BP Pulse Ox O2 Del Method 05/23/25 11:00 97.7 F 65 18 128/64 100 05/23/25 08:11 78 05/23/25 08:10 Room Air 05/23/25 05:57 97.8 F 64 16 147/68 H 99 05/22/25 21:38 97.2 F L 71 16 174/86 H 100 05/22/25 21:36 99 Room Air 05/22/25 20:00 Room Air Intake/Output Intake/Output: Intake & Output 05/20/25 05/21/25 05/22/2525 23:59 23:59 23:59 23:59 Intake Total 3073.8 2200 1436 1900 Output Total 1999 2499 2150 2400 Balance 1073.8 -300 -714 -500 Meds/Results Medications: Active Medications Generic Name Dose Route Start Last Admin Trade Name Freq PRN Reason Stop Dose Admin Acetaminophen 650 mg 05/15/25 13:24 05/23/25 14:49 Acetaminophen 325 Mg Tablet PO 650 mg Q6H PRN Administration Mild Pain (1-3) or Fever Amlodipine Besylate 2.5 mg 05/18/25 10:20 05/23/25 08:11 Amlodipine Besylate 2.5 Mg Tablet PO 2.5 mg QAM BASSEM Administration Apixaban 5 mg 05/20/25 21:15 05/23/25 08:11 Apixaban 5 Mg Tablet PO 5 mg Q12HR BASSEM Administration Atorvastatin Calcium 40 mg 05/16/25 09:00 05/23/25 08:11 Atorvastatin 40 Mg Tablet PO 40 mg DAILY BASSEM Administration Benzocaine 1 lozenge 05/19/25 11:33 Benzocaine/Menthol (*Bkc) 18 Ea Lozenge PO PRN PRN Sore Throat Benzonatate 100 mg 05/15/25 13:24 05/19/25 11:47 Benzonatate 100 Mg Capsule PO 100 mg TID PRN Administration Cough Dextrose 12.5 gm 05/15/25 13:27 Dextrose 50% 25 Gm/50 Ml Syringe IV PUSH PRN PRN Hypoglycemia Protocol Epoetin Abhay-epbx 10,000 units 05/19/25 08:40 05/23/25 08:15 Epoetin Abhay-Epbx 10,000 Units/Ml Vial SUB-Q 10,000 units TUTHSA@09 BASSEM Administration Finasteride 5 mg 05/16/25 09:00 05/23/25 08:11 Finasteride 5 Mg Tablet PO 5 mg QAM BASSEM Administration Glucagon 1 mg 05/15/25 13:27 Glucagon For Inj 1 Mg Vial IM PRN PRN Hypoglycemia Protocol Glucose 15 gm 05/15/25 13:27 Glucose Oral Gel 15 Gm Of Glucse In 37.5 Gm Tube PO PRN PRN Hypoglycemia Protocol Guaifenesin 600 mg 05/20/25 21:15 05/23/25 08:11 Guaifenesin 12 Hr 600 Mg Tabcr PO 600 mg Q12HR BASSEM Administration Dextrose 1,000 mls @ 100 mls/hr 05/15/25 13:27 Dextrose 5% 1,000 Ml IVPB PRN PRN Hypoglycemia Protocol Sodium Chloride 1,000 mls @ 75 mls/hr 05/18/25 10:15 05/23/25 14:44 Normal Saline Iv IV CONT 75 mls/hr .[id number] BASSEM Administration Insulin Aspart 2 - 5 units 05/15/25 17:00 05/23/25 17:01 Insulin Aspart (*Bkc) 100 Units/Ml SUB-Q Not Given TIDWM BASSEM Protocol Metoprolol Tartrate 50 mg 05/20/25 21:15 05/23/25 08:11 Metoprolol Tartrate 50 Mg Tab PO 50 mg Q12HR BASSEM Administration Mirtazapine 15 mg 05/20/25 21:15 05/22/25 20:35 Mirtazapine 15 Mg Tablet PO 15 mg HS BASSEM Administration Sodium Bicarbonate 1,300 mg 05/21/25 13:00 05/23/25 17:00 Sodium Bicarbonate Tab 650 Mg Tablet PO 1,300 mg TID BASSEM Administration Radiology Results: ITS Impressions Renal Ultrasound 05/15/25 14:00 IMPRESSION: 1. Normal kidneys without hydronephrosis. 2. Mild thickening of the bladder wall with irregular mucosal surface, consistent which is somewhat limited by partially decompressed state. Differential would include cystitis either acute or chronic which is suggested by the appearance on prior CT, sequela of chronic outlet obstruction or malignancy. Correlate with urinalysis and clinical history. Consider cystoscopy for further evaluation as clinically indicated. Chest X-Ray 05/19/25 07:18 Impression: Clear lungs. Labs Labs: Laboratory Tests 05/23/25 06:34 05/23/25 06:34 Calcium 7.4 L Phosphorus 4.0 Magnesium 1.0 L Albumin 2.9 L
--- NOTE | 2025-05-23 11:07 | PCPTNOTE ---
Patient refused treatment this session. Patient states I don't need therapy. I am not getting weaker! Provided verbal education to patient on the importance of participating in PT to improve/maintain strength, improve mobility and improve endurance. Patient voices understanding but continues to refuse.
[2025-05-23 14:00] VITALS: BP 128/64; PULSE 65; RESP 18; TEMP 36.5; O2SAT 100
[2025-05-23] MEDS: SODIUM CHLORIDE 0.9% IV 1,000 ML 75 ML IV CONT (14:44)
[2025-05-23] MEDS: ACETAMINOPHEN 325 MG TABLET 650 MG PO (14:49)
--- NOTE | 2025-05-23 16:34 | PM.IMPN ---
Progress Note: A&P Assessment and Plan (1) Mental status change resolved: Code(s): Z86.59 - Personal history of other mental and behavioral disorders Status: Acute (2) Acute kidney failure: Qualifiers: Acute renal failure type: unspecified Qualified Code(s): N17.9 - Acute kidney failure, unspecified Code(s): N17.9 - Acute kidney failure, unspecified Status: Acute Plan (1) Acute kidney injury superimposed on CKD: Code(s): N17.9 - Acute kidney failure, unspecified; N18.9 - Chronic kidney disease, unspecified Status: Acute Assessment and Plan: Patient recently admitted here after he was found down and has no recollection of events. He was living at home independently. He was treated for a UTI, started on ceftriaxone. UA grew Enterobacter susceptible to Bactrim, discharged with same. UA today equivocal for infection, however started on antibiotics. For output in the ED despite Perdomo exchange may indicate there is a dehydration component. Will check labs and renal ultrasound. IV fluids. Nephrology consulted. Renal ultrasound showed irregular mucosal surface of the bladder, could be related to chronic outlet obstruction or malignancy. No prior cystoscopy on file, will consult Urology for evaluation for possible need for cystoscopy. as per urology continue perdomo watch UO and BMP Appreciate consultation of urologist and software configuration analyst Creatinine 4.49 slightly improving (2) Pneumonia: Qualifiers: Laterality: left Lung location: lower lobe of lung Pneumonia type: due to unspecified organism Qualified Code(s): J18.9 - Pneumonia, unspecified organism Code(s): J18.9 - Pneumonia, unspecified organism Status: Acute Assessment and Plan: - CXR: Left basilar atelectasis versus pneumonia. - complicating/risk factors: Recent hospitalization - started on ceftriaxone and azithromycin, exchanged it to cefepime and doxycycline. -pt now on RA Patient still has cough, denies dyspnea Continue cefepime IV (3) UTI (urinary tract infection): Qualifiers: Urinary tract infection type: acute cystitis Hematuria presence: without hematuria Qualified Code(s): N30.00 - Acute cystitis without hematuria Code(s): N39.0 - Urinary tract infection, site not specified Status: Acute Assessment and Plan: - previous micro reviewed, Enterobacter on 04/19 that was resistant to Augmentin and/Ancef, intermediate to Macrobid. Ceftriaxone sensitivities not listed. 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: without termite control technician use Diabetes mellitus complication status: without complication Qualified Code(s): E11.9 - Type 2 diabetes mellitus without complications Code(s): E11.9 - Type 2 diabetes mellitus without complications Status: Chronic Assessment and Plan: -- CLAUDIA bynum - A1C 6.7% in September of 2024, updating (6) Hypertension: Qualifiers: Hypertension type: primary hypertension Qualified Code(s): I10 - Essential (primary) hypertension Code(s): I10 - Essential (primary) hypertension Status: Chronic Assessment and Plan: Controlled - continue home medications: Metoprolol I saw exam patient today. Patient mental status improving, able to engage conversation, patient with LEANDRO presented with worsening kidney function upon arrival patient BUN/Scr was 89/6.24 his base line is 28/1.39, most likely due to dehydration as patient kidney function is improving with hydration and today his 63/3.19 renal US showed normal kidney without hydronephrosis, will continue to hydrated the patient and monitor his kidney function, patient is seen by software configuration analyst and further recommendations to follow. patient is working with PT/OT, will monitor. Patient feels tired. Patient denies abdomen pain nausea vomiting. Appetite improvingPT/OT, will monitor. Patient feels tired. Patient denies abdomen pain nausea vomiting. Appetite improving Subjective Date/time seen: 05/23/25 16:34 Interval history: I saw exam patient today. Patient mental status improving, able to engage conversation, patient with LEANDRO presented with worsening kidney function upon arrival patient BUN/Scr was 89/6.24 his base line is 28/1.39, most likely due to dehydration as patient kidney function is improving with hydration and today his 63/3.19 renal US showed normal kidney without hydronephrosis, will continue to hydrated the patient and monitor his kidney function, patient is seen by software configuration analyst and further recommendations to follow. patient is working with PT/OT, will monitor. Patient feels tired. Patient denies abdomen pain nausea vomiting. Appetite improving Review of Systems Review of Systems: mild cough pt feels weak All systems reviewed & are unremarkable except as noted in HPI and below Exam Narrative: Patient is comfortable, NAD HEENT: eyes are clear and none icteric LUNGS:CTA HEART: RR S1S2 ABD: BS+, Soft and nontender Lower extremities: no edema SKIN: nonjaundiced Neuro: grossly intact. Objective Data Vital Signs Vital Signs: Vital Signs - 24 hr 05/22/25 20:00 05/22/25 21:36 05/22/25 21:38 Temperature 36.2 C L Pulse Rate 71 Respiratory Rate 16 Blood Pressure 174/86 H Pulse Oximetry 99 100 Oxygen Delivery Room Air Room Air 05/23/25 05:57 05/23/25 08:10 05/23/25 08:11 Temperature 36.6 C Pulse Rate 64 78 Respiratory Rate 16 Blood Pressure 147/68 H Pulse Oximetry 99 Oxygen Delivery Room Air 05/23/25 14:00 Temperature 36.5 C Pulse Rate 65 Respiratory Rate 18 Blood Pressure 128/64 Pulse Oximetry 100 Oxygen Delivery Intake/Output Intake/Output: Intake & Output 05/20/25 05/21/25 05/22/25 05/23/25 23:59 23:59 23:59 23:59 Intake Total 3073.8 2200 1436 1660 Output Total 2000 2500 2150 1600 Balance 1073.8 -300 -714 60 Meds/Results Medications: Active Medications Generic Name Dose Route Start Last Admin Trade Name Freq PRN Reason Stop Dose Admin Acetaminophen 650 mg 05/15/25 13:24 05/23/25 14:49 Acetaminophen 325 Mg Tablet PO 650 mg Q6H PRN Administration Mild Pain (1-3) or Fever Amlodipine Besylate 2.5 mg 05/18/25 10:20 05/23/25 08:11 Amlodipine Besylate 2.5 Mg Tablet PO 2.5 mg QAM BASSEM Administration Apixaban 5 mg 05/20/25 21:15 05/23/25 08:11 Apixaban 5 Mg Tablet PO 5 mg Q12HR BASSEM Administration Atorvastatin Calcium 40 mg 05/16/25 09:00 05/23/25 08:11 Atorvastatin 40 Mg Tablet PO 40 mg DAILY BASSEM Administration Benzocaine 1 lozenge 05/19/25 11:33 Benzocaine/Menthol (*Bkc) 18 Ea Lozenge PO PRN PRN Sore Throat Benzonatate 100 mg 05/15/25 13:24 05/19/25 11:47 Benzonatate 100 Mg Capsule PO 100 mg TID PRN Administration Cough Dextrose 12.5 gm 05/15/25 13:27 Dextrose 50% 25 Gm/50 Ml Syringe IV PUSH PRN PRN Hypoglycemia Protocol Epoetin Abhay-epbx 10,000 units 05/19/25 08:40 05/23/25 08:15 Epoetin Abhay-Epbx 10,000 Units/Ml Vial SUB-Q 10,000 units TUTHSA@09 BASSEM Administration Finasteride 5 mg 05/16/25 09:00 05/23/25 08:11 Finasteride 5 Mg Tablet PO 5 mg QAM BASSEM Administration Glucagon 1 mg 05/15/25 13:27 Glucagon For Inj 1 Mg Vial IM PRN PRN Hypoglycemia Protocol Glucose 15 gm 05/15/25 13:27 Glucose Oral Gel 15 Gm Of Glucse In 37.5 Gm Tube PO PRN PRN Hypoglycemia Protocol Guaifenesin 600 mg 05/20/25 21:15 05/23/25 08:11 Guaifenesin 12 Hr 600 Mg Tabcr PO 600 mg Q12HR BASSEM Administration Dextrose 1,000 mls @ 100 mls/hr 05/15/25 13:27 Dextrose 5% 1,000 Ml IVPB PRN PRN Hypoglycemia Protocol Sodium Chloride 1,000 mls @ 75 mls/hr 05/18/25 10:15 05/23/25 14:44 Normal Saline Iv IV CONT 75 mls/hr .[id number] BASSEM Administration Insulin Aspart 2 - 5 units 05/15/25 17:00 05/23/25 12:07 Insulin Aspart (*Bkc) 100 Units/Ml SUB-Q Not Given TIDWM BASSEM Protocol Metoprolol Tartrate 50 mg 05/20/25 21:15 05/23/25 08:11 Metoprolol Tartrate 50 Mg Tab PO 50 mg Q12HR BASSEM Administration Mirtazapine 15 mg 05/20/25 21:15 05/22/25 20:35 Mirtazapine 15 Mg Tablet PO 15 mg HS BASSEM Administration Sodium Bicarbonate 1,300 mg 05/21/25 13:00 05/23/25 12:18 Sodium Bicarbonate Tab 650 Mg Tablet PO 1,300 mg TID BASSEM Administration Radiology Results: ITS Impressions Renal Ultrasound 05/15/25 14:00 IMPRESSION: 1. Normal kidneys without hydronephrosis. 2. Mild thickening of the bladder wall with irregular mucosal surface, consistent which is somewhat limited by partially decompressed state. Differential would include cystitis either acute or chronic which is suggested by the appearance on prior CT, sequela of chronic outlet obstruction or malignancy. Correlate with urinalysis and clinical history. Consider cystoscopy for further evaluation as clinically indicated. Chest X-Ray 05/19/25 07:18 Impression: Clear lungs. Labs Labs: Laboratory Results - last 24 hr 05/22/25 05/23/25 05/23/25 19:59 06:34 07:58 WBC 10.9 H RBC 2.72 L Hgb 8.0 L Hct 25.5 L MCV 93.8 MCH 29.4 MCHC 31.4 L RDW 14.2 Plt Count 319 MPV 8.6 Immature Gran % (Auto) 1.7 H Neut % (Auto) 57.5 Lymph % (Auto) 25.3 Rankin % (Auto) 10.3 H Eos % (Auto) 4.7 H Baso % (Auto) 0.5 Lymph # (Auto) 2.75 Rankin # (Auto) 1.1 H Eos # (Auto) 0.5 H Baso # (Auto) 0.1 Abs Immat Gran (auto) 0.19 H Absolute Neuts (auto) 6.2 Absolute Nucleated RBC 0.030 H Nucleated RBC % 0.3 H Sodium 141 Potassium 3.5 Chloride 111 H Carbon Dioxide 18 L Anion Gap 12 BUN 63 H Creatinine 3.19 H Estim Creat Clear Calc 20 Estimated GFR 19 L Glucose 85 POC Capillary Glucose 110 H 78 Calcium 7.4 L Phosphorus 4.0 Magnesium 1.0 L Albumin 2.9 L 05/23/25 11:50 WBC RBC Hgb Hct MCV MCH MCHC RDW Plt Count MPV Immature Gran % (Auto) Neut % (Auto) Lymph % (Auto) Rankin % (Auto) Eos % (Auto) Baso % (Auto) Lymph # (Auto) Rankin # (Auto) Eos # (Auto) Baso # (Auto) Abs Immat Gran (auto) Absolute Neuts (auto) Absolute Nucleated RBC Nucleated RBC % Sodium Potassium Chloride Carbon Dioxide Anion Gap BUN Creatinine Estim Creat Clear Calc Estimated GFR Glucose POC Capillary Glucose 120 H Calcium Phosphorus Magnesium Albumin Quality VTE Prophylaxis VTE prophylaxis: pharmacologic ordered
[2025-05-23] MEDS: MIRTAZAPINE 15 MG TABLET PO (20:50)
[2025-05-23 20:51] VITALS: BP 113/70; PULSE 69; RESP 16; TEMP 36.7; O2SAT 100
[2025-05-23 20:52] VITALS: PULSE 69
[2025-05-24] MEDS: SODIUM CHLORIDE 0.9% IV 1,000 ML 75 ML IV CONT (04:34)
[2025-05-24 05:13] VITALS: BP 174/81; PULSE 79; RESP 16; TEMP 36.4; O2SAT 100
[2025-05-24 06:15] LABS: Hematocrit 24.2 % (42.0-52.0); Hemoglobin 7.4 g/dL (14.0-18.0); Immature Granulocyte Percent A 2.1 % (0-0.5); Lymphocytes Absolute Auto 2.95 K/mm3 (0.9-3.2); Mean Corpuscular HGB Conc 30.6 g/dl (32-36); Mean Corpuscular Hemoglobin 28.6 pg (26-34); Mean Corpuscular Volume 93.4 fl (80-100); Nucleated Red Blood Cells Absolute Auto 0.000 K/mm3 (0.0-0.012); Nucleated Red Blood Cells Perc 0.0 % (0.0-0.2); Platelet Count Result 280 k/mm3 (150-375); Red Blood Count 2.59 M/mm3 (4.6-6.20); White Blood Count 11.6 K/mm3 (4.5-10.0)
[2025-05-24 06:27] LABS: Albumin Level 2.7 g/dL (3.5-5.1); Anion Gap 12 mmol/L (4-12); Blood Urea Nitrogen 56 mg/dL (9-20); Calcium 7.0 mg/dL (8.4-10.2); Carbon Dioxide 18 mmol/L (22-30); Chloride 112 mmol/L (98-107); Estimated CRCL calculation 21 ml/min; Estimated Glomerular Filt Rate 20; Glucose 78 mg/dL (65-110); Potassium 3.2 mmol/L (3.4-5.0); Sodium 142 mmol/L (137-145)
[2025-05-24 06:38] LABS: Magnesium 0.9 mg/dL (1.6-2.3)
[2025-05-24] MEDS: FINASTERIDE 5 MG TABLET PO (09:29)
[2025-05-24] MEDS: MAGNESIUM OXIDE 400 MG TABLET PO (09:29)
[2025-05-24] MEDS: METOPROLOL TARTRATE 50 MG TAB PO (09:29)
[2025-05-24] MEDS: SODIUM BICARBONATE TAB 650 MG TABLET 1300 MG PO (09:29)
[2025-05-24] MEDS: APIXABAN 5 MG TABLET PO (09:29)
[2025-05-24] MEDS: guaiFENesin 12 HR 600 MG TABCR PO (09:29)
[2025-05-24] MEDS: ATORVASTATIN 40 MG TABLET PO (09:29)
[2025-05-24] MEDS: POTASSIUM CHLORIDE 20 MEQ PACKET (FOR LIQUID) PO (09:30)
[2025-05-24] MEDS: MAGNESIUM SULF 2 GM/WATER 50ML 2 GM/50 ML BAG IVPB (09:31)
--- NOTE | 2025-05-24 11:30 | P.PNNP_ITS ---
Progress Note: A&P Assessment and Plan (1) Acute kidney injury: Code(s): N17.9 - Acute kidney failure, unspecified Status: Acute Assessment and Plan: * slow improvement noted * as noted by admission labs * evaluation to date noted: * renal ultrasound w/o acute obstruction * UA suggestive of infection * urine electrolytes non-prerenal * urine eosinophils * proteinuria noted * CPK low/normal * etiology not entirely clear - possibly related to: * prerenal factors * infection (UTI +/- pneumonia) * perdomo obstruction? * other?? * perdomo catheter exchanged in ER * on antibiotics for presumed UTI and pneumonia * ongoing IV fluids at this time * follow trend of repeat labs and UOP (2) Stage 3 chronic kidney disease: Code(s): N18.30 - Chronic kidney disease, stage 3 unspecified Status: Chronic Assessment and Plan: * baseline creatinine seems to run ~ 1.5 - 2.0mg/dl * this causes him to fluctuate between CKD stage 3A and stage 3B * he has fluctuated to the high 2ish range on previous hospitalizations * presumably secondary to hypertension, DM, vascular disease, BPH, neurogenic bladder, recurrent UTIs, and age-change * possible new baseline creatinine??? (3) UTI (urinary tract infection): Qualifiers: Urinary tract infection type: acute cystitis Hematuria presence: w ithout hematuria Qualified Code(s): N30.00 - Acute cystitis without hematuria Code(s): N39.0 - Urinary tract infection, site not specified Status: Acute Assessment and Plan: * admission UA highly suggestive: * complicated by indwelling perdomo catheter * follow culture data * on antibiotics (4) Pneumonia: Qualifiers: Laterality: left Lung location: lower lobe of lung Pneumonia type: due to unspecified organism Qualified Code(s): J18.9 - Pneumonia, unspecified organism Code(s): J18.9 - Pneumonia, unspecified organism Status: Acute Assessment and Plan: * admission CXR suggestive * follow culture data * on antibiotics * no respiratory distress and no oxygen requirements * continue supportive therapy (5) Neurogenic bladder: Code(s): N31.9 - Neuromuscular dysfunction of bladder, unspecified Status: Acute Assessment and Plan: * chronic perdomo catheter * exchanged in ER on admission * Urology recommendations noted regarding renal ultrasound findings (6) Anemia: Qualifiers: Anemia type: iron deficiency Iron deficiency anemia type: chronic blood loss Qualified Code(s): D50.0 - Iron deficiency anemia secondary to blood loss (chronic) Code(s): D64.9 - Anemia, unspecified Status: Acute Assessment and Plan: * presumably due to LEANDRO, CKD, acute illness/infection, and IVFs * started on Epogen while in hospital * follow trend of H/H (7) Hypertension: Qualifiers: Hypertension type: primary hypertension Qualified Code(s): I10 - Essential (primary) hypertension Code(s): I10 - Essential (primary) hypertension Status: Chronic Assessment and Plan: * relatively stable * continue current medications * follow trend of hemodynamics (8) Diabetes: Qualifiers: Diabetes mellitus type: type 2 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 Will continue to follow. L Subjective Date/time seen: 05/24/25 11:30 Interval history: Follow-up for acute kidney injury/acute renal failuire on chronic kidney disease. No new issues or problems to report at this time; renal function/creatinine continues to slowly improve as well with acceptable urine output; no apparent distress noted. Exam 2 Narrative: General: elderly but WD/WN male in NAD Heart: normal S1 and S2; no rub Lungs: clear but distant breath sounds Abdomen: soft, nontender, nondistended, positive bowel sounds Extremities: no cyanosis or clubbing; no edema Skin: warm and dry Objective Data Vital Signs Vital Signs: Vital Signs Temp Pulse Resp BP Pulse Ox O2 Del Method 05/24/25 08:00 Room Air 05/24/25 05:13 97.6 F 79 16 174/81 H 100 05/23/25 20:52 69 05/23/25 20:51 98.0 F 69 16 113/70 100 05/23/25 20:50 Room Air 05/23/25 14:00 97.7 F 65 18 128/64 100 Intake/Output Intake/Output: Intake & Output 05/21/25 05/22/25 05/23/25 05/24/25 23:59 23:59 23:59 23:59 Intake Total 2200 1436 1900 1740 Output Total 2499 2150 2400 2024 [facility] -300 -714 -500 -285 Meds/Results Medications: Active Medications Generic Name Dose Route Start Last Admin Trade Name Freq PRN Reason Stop Dose Admin Acetaminophen 650 mg 05/15/25 13:24 05/23/25 14:49 Acetaminophen 325 Mg Tablet PO 650 mg Q6H PRN Administration Mild Pain (1-3) or Fever Amlodipine Besylate 2.5 mg 05/18/25 10:20 05/24/25 09:29 Amlodipine Besylate 2.5 Mg Tablet PO 2.5 mg QAM BASSEM Administration Apixaban 5 mg 05/20/25 21:15 05/24/25 09:29 Apixaban 5 Mg Tablet PO 5 mg Q12HR BASSEM Administration Atorvastatin Calcium 40 mg 05/16/25 09:00 05/24/25 09:29 Atorvastatin 40 Mg Tablet PO 40 mg DAILY BASSEM Administration Benzocaine 1 lozenge 05/19/25 11:33 Benzocaine/Menthol (*Bkc) 18 Ea Lozenge PO PRN PRN Sore Throat Benzonatate 100 mg 05/15/25 13:24 05/19/25 11:47 Benzonatate 100 Mg Capsule PO 100 mg TID PRN Administration Cough Dextrose 12.5 gm 05/15/25 13:27 Dextrose 50% 25 Gm/50 Ml Syringe IV PUSH PRN PRN Hypoglycemia Protocol Epoetin Abhay-epbx 10,000 units 05/19/25 08:40 05/23/25 08:15 Epoetin Abhay-Epbx 10,000 Units/Ml Vial SUB-Q 10,000 units TUTHSA@09 BASSEM Administration Finasteride 5 mg 05/16/25 09:00 05/24/25 09:29 Finasteride 5 Mg Tablet PO 5 mg QAM BASSEM Administration Glucagon 1 mg 05/15/25 13:27 Glucagon For Inj 1 Mg Vial IM PRN PRN Hypoglycemia Protocol Glucose 15 gm 05/15/25 13:27 Glucose Oral Gel 15 Gm Of Glucse In 37.5 Gm Tube PO PRN PRN Hypoglycemia Protocol Guaifenesin 600 mg 05/20/25 21:15 05/24/25 09:29 Guaifenesin 12 Hr 600 Mg Tabcr PO 600 mg Q12HR BASSEM Administration Dextrose 1,000 mls @ 100 mls/hr 05/15/25 13:27 Dextrose 5% 1,000 Ml IVPB PRN PRN Hypoglycemia Protocol Sodium Chloride 1,000 mls @ 75 mls/hr 05/18/25 10:15 05/24/25 10:54 Normal Saline Iv IV CONT Not Given .[id number] [facility] Insulin Aspart 2 - 5 units 05/15/25 17:00 05/24/25 08:00 Insulin Aspart (*Bkc) 100 Units/Ml SUB-Q Not Given TIDWM BASSEM Protocol Magnesium Oxide 400 mg 05/24/25 09:00 05/24/25 09:29 Magnesium Oxide 400 Mg Tablet PO 400 mg DAILY BASSEM Administration Metoprolol Tartrate 50 mg 05/20/25 21:15 05/24/25 09:29 Metoprolol Tartrate 50 Mg Tab PO 50 mg Q12HR BASSEM Administration Mirtazapine 15 mg 05/20/25 21:15 05/23/25 20:50 Mirtazapine 15 Mg Tablet PO 15 mg HS BASSEM Administration Sodium Bicarbonate 1,300 mg 05/21/25 13:00 05/24/25 09:29 Sodium Bicarbonate Tab 650 Mg Tablet PO 1,300 mg TID BASSEM Administration Radiology Results: ITS Impressions Renal Ultrasound 05/15/25 14:00 IMPRESSION: 1. Normal kidneys without hydronephrosis. 2. Mild thickening of the bladder wall with irregular mucosal surface, consistent which is somewhat limited by partially decompressed state. Differential would include cystitis either acute or chronic which is suggested by the appearance on prior CT, sequela of chronic outlet obstruction or malignancy. Correlate with urinalysis and clinical history. Consider cystoscopy for further evaluation as clinically indicated. Chest X-Ray 05/19/25 07:18 Impression: Clear lungs. Labs Labs: Laboratory Tests 05/24/25 05:55 05/24/25 05:55 Calcium 7.0 L Phosphorus 3.5 Magnesium 0.9 L Albumin 2.7 L
--- NOTE | 2025-05-24 12:01 | P.DS_ITS ---
DS: Admitting Diagnosis Discharge Date 05/24/25 Admitting Diagnosis Abnormal Labs DS: Discharge Diagnosis Discharge Diagnosis (1) Mental status change resolved: Code(s): Z86.59 - Personal history of other mental and behavioral disorders Status: Acute (2) Acute kidney failure: Qualifiers: Acute renal failure type: unspecified Qualified Code(s): N17.9 - Acute kidney failure, unspecified Code(s): N17.9 - Acute kidney failure, unspecified Status: Acute Plan (1) Acute kidney injury superimposed on CKD: Code(s): N17.9 - Acute kidney failure, unspecified; N18.9 - Chronic kidney disease, unspecified Status: Acute Assessment and Plan: Patient recently admitted here after he was found down and has no recollection of events. He was living at home independently. He was treated for a UTI, started on ceftriaxone. UA grew Enterobacter susceptible to Bactrim, discharged with same. UA today equivocal for infection, however started on antibiotics. For output in the ED despite Perdomo exchange may indicate there is a dehydration component. Will check labs and renal ultrasound. IV fluids. Nephrology consulted. Renal ultrasound showed irregular mucosal surface of the bladder, could be related to chronic outlet obstruction or malignancy. No prior cystoscopy on file, will consult Urology for evaluation for possible need for cystoscopy. as per urology continue perdomo watch UO and BMP Appreciate consultation of urologist and aeronautical engineering officer Creatinine 4.49 slightly improving (2) Pneumonia: Qualifiers: Laterality: left Lung location: lower lobe of lung Pneumonia type: due to unspecified organism Qualified Code(s): J18.9 - Pneumonia, unspecified organism Code(s): J18.9 - Pneumonia, unspecified organism Status: Acute Assessment and Plan: - CXR: Left basilar atelectasis versus pneumonia. - complicating/risk factors: Recent hospitalization - started on ceftriaxone and azithromycin, exchanged it to cefepime and doxycycline. -pt now on RA Patient still has cough, denies dyspnea Continue cefepime IV (3) UTI (urinary tract infection): Qualifiers: Urinary tract infection type: acute cystitis Hematuria presence: without hematuria Qualified Code(s): N30.00 - Acute cystitis without hematuria Code(s): N39.0 - Urinary tract infection, site not specified Status: Acute Assessment and Plan: - previous micro reviewed, Enterobacter on 04/19 that was resistant to Augmentin and/Ancef, intermediate to Macrobid. Ceftriaxone sensitivities not listed. 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 insulin use: without jail use Diabetes mellitus complication status: without complication Qualified Code(s): E11.9 - Type 2 diabetes mellitus without complications Code(s): E11.9 - Type 2 diabetes mellitus without complications Status: Chronic Assessment and Plan: -- CLAUDIA bynum - A1C 6.7% in September of 2024, updating (6) Hypertension: Qualifiers: Hypertension type: primary hypertension Qualified Code(s): I10 - Essential (primary) hypertension Code(s): I10 - Essential (primary) hypertension Status: Chronic Assessment and Plan: Controlled - continue home medications: Metoprolol I saw exam patient today. Patient mental status improving, able to engage conversation, patient with LEANDRO presented with worsening kidney function upon arrival patient BUN/Scr was 89/6.24 his base line is 28/1.39, most likely due to dehydration as patient kidney function is improving with hydration and today his 63/3.19 renal US showed normal kidney without hydronephrosis, will continue to hydrated the patient and monitor his kidney function, patient is seen by aeronautical engineering officer and further recommendations to follow. patient is working with PT/OT, will monitor. Patient feels tired. Patient denies abdomen pain nausea vomiting. Appetite improvingPT/OT, will monitor. Patient feels tired. Patient denies abdomen pain nausea vomiting. Appetite improving DS: Summary Hospital Course Hospital Course: I saw exam patient today. Patient mental status improving, able to engage conversation, patient with LEANDRO presented with worsening kidney function upon arrival patient BUN/Scr was 89/6.24 his base line is 28/1.39, most likely due to dehydration as patient kidney function is improving with hydration and today his 63/3.19 renal US showed normal kidney without hydronephrosis, will continue to hydrated the patient and monitor his kidney function, patient is seen by aeronautical engineering officer and further recommendations to follow. patient is working with PT/OT, will monitor. Patient admitted with acute on chronic kidney disease, most likely 2/2 poor PO intake, patient clinical symptoms are improving with hydration, patient will check his kidney function in 1 week will follow up with his primary care provider, feeling better, will discharge today. Time Spent with Patient Time attestation: Total time spent providing and/or coordinating discharge services: Exam Narrative: Patient is comfortable, NAD HEENT: eyes are clear and none icteric LUNGS:CTA HEART: RR S1S2 ABD: BS+, Soft and nontender Lower extremities: no edema SKIN: nonjaundiced Neuro: grossly intact. DS: Data Data Completed and Pending Labs on day of discharge: Labs from last 24 hours 05/24/25 05/24/25 05/23/25 08:16 05:55 19:33 WBC 11.6 H RBC 2.59 L Hgb 7.4 L Hct 24.2 L MCV 93.4 MCH 28.6 MCHC 30.6 L RDW 14.1 Plt Count 280 MPV 8.5 Immature Gran % (Auto) 2.1 H Neut % (Auto) 60.1 Lymph % (Auto) 25.5 Gillespie % (Auto) 8.3 Eos % (Auto) 3.6 Baso % (Auto) 0.4 Lymph # (Auto) 2.95 Gillespie # (Auto) 1.0 H Eos # (Auto) 0.4 H Baso # (Auto) 0.1 Abs Immat Gran (auto) 0.24 H Absolute Neuts (auto) 7.0 H Absolute Nucleated RBC 0.000 Nucleated RBC % 0.0 Sodium 142 Potassium 3.2 L Chloride 112 H Carbon Dioxide 18 L Anion Gap 12 BUN 56 H Creatinine 3.07 H Estim Creat Clear Calc 21 Estimated GFR 20 L Glucose 78 POC Capillary Glucose 71 173 H Calcium 7.0 L Phosphorus 3.5 Magnesium 0.9 L Albumin 2.7 L 05/23/25 05/23/25 16:56 11:50 WBC RBC Hgb Hct MCV MCH MCHC RDW Plt Count MPV Immature Gran % (Auto) Neut % (Auto) Lymph % (Auto) Gillespie % (Auto) Eos % (Auto) Baso % (Auto) Lymph # (Auto) Gillespie # (Auto) Eos # (Auto) Baso # (Auto) Abs Immat Gran (auto) Absolute Neuts (auto) Absolute Nucleated RBC Nucleated RBC % Sodium Potassium Chloride Carbon Dioxide Anion Gap BUN Creatinine Estim Creat Clear Calc Estimated GFR Glucose POC Capillary Glucose 108 H 120 H Calcium Phosphorus Magnesium Albumin Discharge Plan Discharge Attending physician on discharge: Leonard Marcos Consulting providers: Gayatri Renee; Lencho Hooks; Donald Blackwood; Caden Mishra; Suha Marroquin; Jazmin Holliday; Caroline Lino; Gokul Ruff; Omer Locke; Chintan London; Emerson Coombs Discharging Clinician: Nessa Marmolejo Patient Disposition: SNF Activity: as tolerated Diet: heart healthy Discharge Instructions: patient needs BMP in 1 week to check for his kidney function and follow up with his primary care provider, please continue to encourage patient to take fluids. Patient Instructions: Antibiotic Form Patient Language: New Zealander Stand Alone Forms: General Discharge Information Follow-up/Referrals: Ronnell Zhang MD [Primary Care Provider] - Discharge Medications: New amlodipine 2.5 mg Tablet 2.5 mg PO QAM Qty: 30 0RF magnesium oxide 400 mg (241.3 mg magnesium) Tablet 400 mg PO DAILY Qty: 30 0RF sodium bicarbonate 650 mg Tablet 1,300 mg PO TID Qty: 30 0RF benzonatate 100 mg Capsule 100 mg PO TID PRN (Reason: Cough) Qty: 30 0RF Chloraseptic Sore Throat 6-10 mg Lozenge 1 betsy PO PRN PRN (Reason: Sore Throat) Qty: 30 0RF guaifenesin [Mucus Relief ER] 600 mg Tablet Extended Release 12hr 600 mg PO Q12HR Qty: 20 0RF Continued atorvastatin 40 mg tablet 40 mg PO DAILY metoprolol tartrate 50 mg tablet 50 mg PO Q12HR finasteride [Proscar] 5 mg tablet 5 mg PO QAM apixaban 5 mg Tablet 5 mg PO BID mirtazapine [Remeron] 15 mg tablet 15 mg feeding tube HS Qty: 30 0RF Date of admission: 05/15/25 14:32 Primary Care Provider: Ronnell Zhang Admitting Provider: Leonard Marcos Attending physician on admission: Nessa Marmolejo Condition: Stable
--- NOTE | 2025-05-24 12:09 | PC.NURSE ---
Called report to Kita FERMIN at [facility] @1100, nurse called back and took report @1116 after she returned from break.
== END 2025-05-24 11:50 | DRG 698 ==
LOC: ANHED 13:44 → ANH3MEDSUR 14:07
PROVIDERS: Family Medicine; Internal Medicine; Internal Medicine Nephrology; Student in an Organized Health Care Education/Training Program; Admitting Provider Internal Medicine; Emergency Provider Physician Assistant; PCP Emergency Medicine; Visit Provider Family Medicine
DX: T83.511A Infection and inflammatory reaction due to indwelling urethral catheter, initial encounter (principal); J18.9 Pneumonia, unspecified organism; N17.9 Acute kidney failure, unspecified; N30.00 Acute cystitis without hematuria; I13.0 Hypertensive heart and chronic kidney disease with heart failure and stage 1 through stage 4 chronic kidney disease, or unspecified chronic kidney disease; I50.42 Chronic combined systolic (congestive) and diastolic (congestive) heart failure; B95.2 Enterococcus as the cause of diseases classified elsewhere; D63.1 Anemia in chronic kidney disease; E78.5 Hyperlipidemia, unspecified; E11.22 Type 2 diabetes mellitus with diabetic chronic kidney disease; F17.210 Nicotine dependence, cigarettes, uncomplicated; I48.0 Paroxysmal atrial fibrillation; N18.30 Chronic kidney disease, stage 3 unspecified; N31.9 Neuromuscular dysfunction of bladder, unspecified; N40.0 Benign prostatic hyperplasia without lower urinary tract symptoms; Z86.73 Personal history of transient ischemic attack (TIA), and cerebral infarction without residual deficits; Z90.49 Acquired absence of other specified parts of digestive tract; Z79.01 Long term (current) use of anticoagulants; Z66 Do not resuscitate
CPT/HCPCS: 36415; 71045; 71046; 76775; 80048; 80053; 80069; 81001; 82550; 82570; 82948; 83036; 83605; 83735; 83930; 84100; 84156; 84300; 84540; 85025; 85027; 85610; 85730; 85999; 86140; 87040; 87086; 87186; 87641; 93005; 96361; 96365; 96368; 97161; 99285; A9270; G0378; J0456; J0692; J0696; J3475; J7030; J7120; Q5105

== ENCOUNTER 2025-07-27 12:45 | Inpatient (IN) | payer MEDICARE, OTHER, SELFPAY ==
--- OUTSIDE RECORDS SUMMARY | 2025-07-25 07:14 | XMS_ITS | Continuity of Care Document ---
Author Organization [facility] Address [address] [place] [address] [place] [address] Phone Care Team Providers Care Armored Car Driver Name Role Phone Ronnell Zhang MD Unavailable Unavailable Allergies, Adverse Reactions, Alerts Substance Reaction Status Criticality No Known Allergies Active No Inform ation Medications Medication Instructions Dosage Effective Dates (start - stop) Status Comments Proscar 5 mg tablet take 1 tablet by oral route every day 5 MG - Active Eliquis 5 mg tablet take 1 tablet by oral route 2 times every day 5 MG - Active Flomax 0.4 mg capsule [...] route every day 40 MG - Active Procedures Procedure Date PPPS, subseq visit OFFICE/OUTPATIENT VISIT, EST OFFICE/OUTPATIENT [...] Diagnoses Date Provider Providers Copied on Encounter [facility], [address] [place], [address], tel:[phone] [facility] No Information 5 Vicente Reynaga. [address], [place], [place], [address] , [place]. tel:[phone] [facility], [address], [place], [place], [address], [place] tel:[phone] [facility] physical (chief complaint) Encounter for general adult medical examination without abnormal findings 5 Vicente Reynaga. [address], [place], [place], [address] , [place]. tel:[phone] [facility], [address], [place], [place], [address], [place] tel:[phone] [facility] No Information 5 Vicente Schofield [address], [place], [place], [address] , [place]. tel:[phone] OFFICE/OUTPA TIENT VISIT, [facility], [address], [place], [place], [address], tel:[phone] [facility] UTI1 (chief complaint) Acute cystitis with hematuria 5 Vicente Reynaga. [address], [place], [place], [address] , [place]. tel:[phone] OFFICE/OUTPA TIENT VISIT, [facility], [address], [place], [place], [address], [place] tel:[phone] [facility] pneumonia1 (chief complaint) renal (chief complaint) dysphagia1 (chief complaint) anemia1 (chief complaint) PneumoniaDysphagiaA cute renal failureAnemia 4 Vicente Reynaga. [address], [place], [place], [address] , [place]. tel:[phone] OFFICE/OUTPA TIENT VISIT, [facility], [address], [place], [place], [address], [place] tel:[phone] [facility] HTN (chief complaint) HLP (chief complaint) anxiety1 (chief complaint) BPH1 (chief complaint) UTI1 (chief complaint) Acute renal failureHypothyroidi smParoxysmal atrial fibrillationBPH w/ lower urinary tract symptomGeneralized anxiety disorderMixed hyperlipidemiaAnemi a 4 Vicente Reynaga. [address], [place], [place], [address] , [place]. tel:[phone] OFFICE/OUTPA TIENT VISIT, [facility], [address] [place], [address], [place] tel:[phone] [facility] CVA1 (chief complaint) anxiety1 (chief complaint) BPH1 (chief complaint) AnemiaGeneralized anxiety disorderBPH w/ lower urinary tract symptomAtrial fibrillationPneumon iaAcute renal failureStroke 4 Vicente Reynaga. [address], [place], [place], [address] , [place]. [phone] OFFICE/OUTPA TIENT VISIT, [facility], [address] [place], [place], [address], [place] tel:[phone] [facility] pneumonia1 (chief complaint) anxiety1 (chief complaint) afib1 (chief complaint) CVA1 (chief complaint) Acute cystitis with hematuriaPneumoniaA nemiaAtrial fibrillationHypothy roidismBPH w/ lower urinary tract symptomAbnormalitie s of gaitMixed hyperlipidemiaGener alized anxiety disorderStroke 4 Vicente Reynaga. [address] [facility] [address], [place], [place], [address] , [place]. [phone] OFFICE/OUTPA TIENT VISIT, [facility], [address] [facility] [place], [address], [place] tel:[phone] [facility] hypothyroi dism1 (chief complaint) pneumonia1 (chief complaint) DM (chief complaint) anemia1 (chief complaint) anxiety1 (chief complaint) PneumoniaAcute cystitis without hematuriaDisorder of iron metabolism, unspecifiedType 2 diabetes mellitus with diabetic nephropathyAbnormal ity of albuminAnemiaHypoth yroidismHypocalcemi aBPH w/ lower urinary tract symptomAtrial fibrillationDepress ionAcute renal failure 4 Vicente Reynaga. [address] [facility] [address], [place], [place], [address] , [place]. [phone] Referring Provider: Thao Collado [address] [facility] [address], [place], [place], [address]. tel:[phone] OFFICE/OUTPA TIENT VISIT, [facility], [address] [facility] [place], [address], [place] tel:[phone] [facility] TB (chief complaint) Abnormal result of Mantoux testAbnormal weight loss Dec- 4 Vicente Reynaga. [address] [facility] [address], [place], [place], [address] , [place]. [phone] Referring Provider: Thao Collado [facility] A, [place], [place], [address]. tel:[phone] OFFICE/OUTPA TIENT VISIT, [facility], [address] [place], [address], [place] tel:[phone] [facility] physical (chief complaint) WeaknessEncounter for general adult medical exam w abnormal findingsAbnormal weight lossAcute renal failureAnemiaType 2 diabetes mellitus without complicationsBPH w/ lower urinary tract symptomDysphagiaDep ressionAtrial fibrillation 4 Vicente Reynaga. [address] [facility] [address], [place], [place], [address] , [place]. tel:[phone] Referring Provider: Thao Collado [facility], [place], [place], [address]. tel:[phone] OFFICE/OUTPA TIENT VISIT, EST [facility], [address] [place] [address] [place], [address], [place] tel:[phone] [facility] HTN (chief complaint) DM (chief complaint) PSA (chief complaint) anemia1 (chief complaint) HLP (chief complaint) weight loss1 (chief complaint) Abnormal weight lossEssential (primary) hypertensionStrokeT ype 2 diabetes mellitus without complicationsElevat ed prostate specific antigen [PSA]Mixed hyperlipidemiaAnemi aThrombocytosisVita min D deficiency, unspecifiedDepressi on 2 Vicente Reynaga. [address] [facility], [place], [place], [address] , [place]. tel:[phone] Referring Provider: Thao Collado [place], [place], [address]. tel:[phone] OFFICE/OUTPA TIENT VISIT, [facility], [address] [place] [address] [employer] [place], [address], [place] tel:[phone] [facility] physical (chief complaint) Encounter for general adult medical exam w abnormal findingsSyncope and collapseStrokeEssen tial (primary) hypertensionAbnorma l weight lossType 2 diabetes mellitus without complicationsAlcoho l dependence, uncomplicated 2 Vicente Schofield [address], [place], [place], [address] , [place]. tel:[phone] Referring Provider: Thao Collado [address], [place], [place], [address]. tel:[phone] OFFICE/OUTPA TIENT VISIT, [facility], [address] [place], [address], [place] tel:[phone] [facility] HTN (chief complaint) DM (chief complaint) depression 1 (chief complaint) weight loss1 (chief complaint) Abnormal weight lossEssential (primary) hypertensionType 2 diabetes mellitus without complicationsFolate deficiencyDepressio n 1 Vicente Schofield [address], [place], [place], [address] , [place]. tel:[phone] Referring Provider: Thao Collado [facility] [place], [address]. tel:[phone] OFFICE/OUTPA TIENT VISIT, [facility], [address] [place], [address], [place] tel:[phone] [facility] DM (chief complaint) KCL (chief complaint) folate (chief complaint) HTN (chief complaint) Type 2 diabetes mellitus without complicationsEssent ial (primary) hypertensionHypokal emiaFolate deficiencyAbnormal weight loss Jul-2 0 Vicente Schofield [address], [place], [place], [address] , [place]. [phone] Referring Provider: Thao Collado [address], [place], [place], [address]. tel:[phone] OFFICE/OUTPA TIENT VISIT, [facility], [address] [place], [address], [place] tel:[phone] [facility] HTN (chief complaint) DM (chief complaint) Type 2 diabetes mellitus without complicationsEssent ial (primary) hypertension Jan-0 0 Vicente Schofield [address], [place], [place], [address] , [place]. tel:[phone] Referring Provider: Thao Collado [address], [place], [place], [address]. tel:[phone] OFFICE/OUTPA TIENT VISIT, EST [facility], [address], [place], [place], [address], [place] tel:[phone] [facility] physical (chief complaint) Encounter for general adult medical exam w abnormal findingsEssential (primary) hypertensionType 2 diabetes mellitus without complicationsAbnorm al weight loss Oct-0 3201 9 Vicente Reynaga. [address], [place], [place], [address] , [place]. tel:[phone] Referring Provider: Thao Collado [address], [place], [place], [address]. tel:[phone] PREV VISIT, EST, AGE 40-64 [facility], [address], [place], [place], [address], [place] tel:[phone] [facility] PHysical (chief complaint) Encntr for general adult medical exam w/o abnormal findings March-0 8 Vicente Reynaga. [address], [place], [place], [address] , [place]. [phone] Referring Provider: Thao Collado [address], [place], [place], [address]. tel:[phone] OFFICE/OUTPA TIENT VISIT, EST [facility], [address], [place], [place], [address], [place] tel:[phone] [facility] DM (chief complaint) HTN1 (chief complaint) HLP (chief complaint) Type 2 diabetes mellitus without complicationsEssent ial (primary) hypertensionMixed hyperlipidemia Nov-2 0 6 Vicente Reynaga. [address], [place], [place], [address] , [place]. tel:[phone] Referring Provider: Thao Collado [address], [place], [place], [address]. tel:[phone] OFFICE/OUTPA TIENT VISIT, EST [facility], [address], [place], [place], [address], [place] tel:[phone] [facility] DM (chief complaint) proteinuri a (chief complaint) HLP (chief complaint) HTN (chief complaint) Dietary surveillance and counselingUnspecifi ed essential hypertensionBrittle diabetesOther and unspecified hyperlipidemiaProte inuria 5 Vicente Reynaga. [address], [place], [place], [address] , [place]. [phone] Referring Provider: Ronnell Zhang, [address], [place], [place], [address]. tel:[phone] PREV VISIT, EST, AGE 40-64 [facility], [address], [place], [place], [address], [place] tel:[phone] [facility] Physical (chief complaint) Routine Medical ExamDiabetes Mellitus Type 2, UncomplicatedHypert ension, UnspecifiedDietary surveillance and counselingRoutine Medical Exam 5 Vicente Reynaga. [address], [place], [place], [address] , [place]. tel:[phone] Referring Provider: Thao Collado [address], [place], [place], [address]. tel:[phone] OFFICE/OUTPA TIENT VISIT, EST [facility], [address], [place], [place], [address], [place] tel:[phone] [facility] fatigue (chief complaint) HTN (chief complaint) DM (chief complaint) elbow pain (chief complaint) Dietary surveillance and counselingFatigue / MalaiseHypertension , UnspecifiedDiabetes Mellitus Type 2, UncomplicatedPain in joint involving upper arm 3 Vicente Reynaga. [address], [place], [place], [address] , [place]. [phone] Referring Provider: Thao Collado [address], [place], [place], [address]. tel:[phone] OFFICE/OUTPA TIENT VISIT, EST [facility], [address], [place], [place], [address], [place] tel:[phone] [facility] HTN (chief complaint) fatigue (chief complaint) libido (chief complaint) Dietary surveillance and counselingHypertens ion, UnspecifiedFatigue / Malaise 0 3 Vicente Reynaga. [address], [place], [place], [address] , [place]. [phone] Referring Provider: Ronnell Zhang, [address], [place], [place], [address]. tel:[phone] PREV VISIT, EST, AGE 40-64 [facility], [address], [place], [place], [address], [place] tel:[phone] [facility] Physical (chief complaint) Dietary surveillance and counselingRoutine Medical ExamDiabetes Mellitus Type 2, UncomplicatedHypert ension, UnspecifiedUnspecif ied vitamin d deficiencyRoutine Medical Exam 3 Vicente Reynaga. [address], [place], [place], [address] , [place]. [phone] Family History Family Member Type Diagnosis Age At Onset Mother Problem (finding) hip fx Father Problem (finding) Stroke Brother Problem (finding) Coronary artery disease Brother Problem (finding) Diabetes mellitus Payers Payer name Insurance type Covered republican ID Authoriza tion(s) [employer] [place] WPS MB [id number] [facility] CI [id number] Social History Type Description Quantity Date Captured Comments Alcohol Use Details Unknown Caffeine Use Details Unknown Tobacco Use Status Smoking Status No Information Sex Male Chief Complaint And Reason For Visit No Information Plan Of Treatment Date Type Action Status Goal Depression screening. Due on due Goal Lipid panel. Due on 025 due Goal Influenza vaccine. Due on due Goal Pneumococcal vaccine. Due on due Goal Td vaccine. Due on due Goal FOBT. Due on due Goal Sigmoidoscopy. Due on due Goal PSA. Due on due Goal Zoster vaccine. Due on due Goal Cognitive assessment. Due on due Goal Abdominal ultrasound. Due on due Goal Tdap. Due on due Goal Tdap. Due on due Goal Abdominal ultrasound. Due on due Goal Cognitive assessment. Due on due Goal Zoster vaccine. Due on due Goal PSA. Due on due Goal Sigmoidoscopy. Due on due Goal Depression screening. Due on due Goal Lipid panel. Due on due Goal Influenza vaccine. Due on due Goal Pneumococcal vaccine. Due on due Goal Td vaccine. Due on due Goal FOBT. Due on due Goal Abdominal ultrasound. Due [...] on due Goal Lipid panel. Due on 024 due Goal Td vaccine. Due on due [...] on due Goal Td vaccine. Due on 24 due Goal Lipid panel. Due on 024 due Goal Depression screening. Due on due [...] on due Goal Lipid panel. Due on 022 due Goal Td vaccine. Due on due [...] on due Goal Lipid panel. Due on 019 due Goal Td vaccine. Due on 19 due Goal Pneumococcal vaccine. Due on due Goal Tdap. Due on due Goal FOBT. Due on due Goal Colonoscopy. Due on 019 due Goal Influenza vaccine. Due on due [...] Tobacco cessation counseling completed Referral Referred To: Gokul Ruff [address] [place] [address], [phone] Ordered: Referrals: Gokul Ruff. Evaluate and treat [...] ordered Referral Ordered: COLONOSCOPY AND BIOPSY ordered History Of Present Illness Encounter Date Complaint History Of Prese nt Illness physical Pt needs annual physical. Pt has BPH and he has chronic indwelling perdomo catheter. He is on proscar and flomax. Pt has HTN. Pt is on metoprolol and norvasc and his bp is low. Pt denies any chest pain or headache. Pt has HLP. pt is on lipitor. Pt has history of paroxymal afib and he is on eliquis. Pt has anxiety and depression. Pt is on remeron and doing ok. Pt denies any suicidal or homicidal thought. Pt denies any crying spells. UTI1 Pt has chronic f oley and [...] Pt was evaluated by nephrology while inpatient. BPH1 Pt has BPH with chronic perdomo placement and he sees urology. He is on flomax and also finasteride. anxiety1 Pt has chronic a nxiety and depression Pt is on remeron and needs refilled .Pt denies any suicidal or homicidal thought. 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 Pt [facility] and he was discharged yesterday. Pt had [...] sob. he was started on lipitor by rehabilitation assistant living physician but he has not [...] flomax by urology. anxiety1 Pt states that carrington guerrero does not feel anxious or depressed and [...] is drinking boost. 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 Pt [...] sob or palpitation Pt is living in [facility] now He denies any suicidal or homicidal [...] bowel, blood in stool, abd raquel, etc. depression His recentl y had a CVA and [...] any numbness Instructions Date Instruction Additional Infor mation Special diet education Related t o Body [...] Diet Related to Dietary Surveillance and Counseling Physical [...]
[2025-07-27] VITALS (10 sets, daily range): BP systolic 107–152; BP diastolic 48–80; PULSE 86–98; RESP 15–32; TEMP 36.4; O2SAT 96–100
--- NOTE | ~2025-07-27 | CT_ITS ---
EXAMINATION: CT brain wo con DATE: 07/27/2025 15:28 INDICATION: Altered mental status TECHNIQUE: Computed tomography (CT) of the head was performed without intravenous contrast. Sagittal and coronal reconstructions were performed. The mA was adjusted according to patient size. Iterative reconstruction technique was employed. The dose-length product was 1735.63 mGy-cm. COMPARISON: head CT dated 04/19/2025 FINDINGS: No acute intracranial hemorrhage, acute infarction or abnormal extra axial fluid collection. 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 There is mild to moderate scattered white matter hypoattenuation consistent with chronic small vessel ischemic disease. Symmetric prominence of the sulci and ventricles consistent with moderate age-appropriate diffuse cerebral volume loss. Ventricles are normal and symmetric. No mass/mass effect. Intracranial calcified cerebral atherosclerosis is noted at the carotid siphons. The orbits, paranasal sinuses and mastoid air cells are normal. IMPRESSION: 1. 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 No acute intracranial process. 2. Stable appearance of age-related changes in the brain including moderate diffuse volume loss and mild to moderate scattered white matter hypoattenuation consistent with chronic small vessel ischemic disease. Reviewed, dictated and finalized at location A. IMPRESSION: 1. 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 No acute intrac ranial process. 2. Stable appearance of age-related changes in the brain including moderate dif fuse volume loss and mild to moderate scattered white matter hypoattenuation co nsistent with chronic small vessel ischemic disease.
--- NOTE | ~2025-07-27 | CT_ITS ---
EXAMINATION: CT diagnostic chest wo jyoti, 07/28/2025 13:36 CDT HISTORY: Pneumonia COMPARISON: No comparisons available. TECHNIQUE: CT scan of the chest was performed without IV contrast. One or more of the following dose reduction techniques were used: automated exposure control, adjustment of the mA and/or kV according to patient size, use of iterative reconstruction technique. FINDINGS: No significant coronary calcification is present ([id number]) LUNGS: Duodenal diverticulum 3 x 2 cm. No tracheomalacia. No bronchiectasis. Moderate emphysematous changes. Minimal pulmonary fibrotic changes. There are bilateral infiltrates in the right upper lobe and the lower lobes with a small pleural effusions and micronodules which are probably infectious. There are some areas of probable mucous plugging noted in the right lower lobe, endobronchial lesion not excluded HEART AND PERICARDIUM: Mild cardiomegaly. Trace pericardial effusion. AORTA: Normal caliber aorta. ADENOPATHY/MEDIASTINUM: Enlarged pretracheal lymph node measures 2 x 2 centimeters with a large partially calcified subcarinal and right hilar lymph nodes evident. LIMITED VIEWS OF THE ABDOMEN: Cirrhotic changes of the liver. Mild distention of the gallbladder. Punctate calcified splenic granulomas. Moderate atrophy of the pancreas. OSSEOUS STRUCTURES: No sclerotic or lytic lesions. No acute rib fractures. OVERLYING SOFT TISSUES: Unremarkable. THYROID: The thyroid is unremarkable. IMPRESSION: Bilateral bronchopneumonia. Sequelae of previous granulomatous disease. Probable reactive mediastinal lymphadenopathy. Follow-up is recommended to assess improvement. Reviewed, dictated and finalized at location A. IMPRESSION: Bilateral bronchopneumonia. Sequelae of previous granulomatous disease. Probabl e reactive mediastinal lymphadenopathy. Follow-up is recommended to assess impr ovement.
--- NOTE | ~2025-07-27 | XR_ITS ---
MODIFIED ESOPHAGRAM HISTORY: Coughing with liquids TECHNIQUE: Modified barium esophagram was performed on 07/29/2025. I administered fluoroscopy and performed the exam with speech pathologist. Patient was seated for lateral fluoroscopic imaging for ingestion of thin liquids, pudding, solids and quantified amounts, followed by thin liquids in uncontrolled amounts. This was recorded on tape. A single fluoroscopic spot image was also recorded. The DAP for this procedure was 3 Gycm2. The amount of fluoroscopy time used during this procedure was 3.8 minutes. FINDINGS: Oral stage: Adequate function. Pharyngeal stage: Reduced laryngeal elevation and adduction. Reduced tongue base retraction and pharyngeal squeeze. There is vallecular, piriform sinus and pharyngeal wall residue. Laryngeal penetration with silent aspiration. Cervical/esophageal stage: There is esophageal/pharyngeal backflow. IMPRESSION: Pharyngeal dysphagia with laryngeal penetration and silent aspiration. Please correlate with speech pathologist findings and specific feeding recommendations. Reviewed, dictated and finalized at location A. IMPRESSION: Pharyngeal dysphagia with laryngeal penetration and silent aspirati on. Please correlate with speech pathologist findings and specific feeding rec ommendations.
--- NOTE | ~2025-07-27 | XR_ITS ---
EXAMINATION: XR chest 1V portable DATE: 07/27/2025 15:21 INDICATION: Weakness and leukocytosis TECHNIQUE: frontal view of the chest was obtained. COMPARISON: Chest radiograph dated 05/19/2025 and 05/15/[address] abdomen and pelvis dated 04/19/2025 FINDINGS: No focal airspace opacities, pulmonary edema, pleural effusion or pneumothorax. Heart size is normal. Calcified right hilar lymph nodes consistent with old granulomatous disease. IMPRESSION: 1. No acute cardiopulmonary disease. Reviewed, dictated and finalized at location A.
--- NOTE | 2025-07-27 12:54 | ECG_ITS ---
Test Date: 2025-07-27 12:59:24 Measurements Intervals [place] Rate: 100 P: 95 GA: 210 QRS: -76 QRSD: 111 T: 99 QT: 395 QTc: 512 Interpretive Statements SINUS TACHYCARDIA WITH FIRST DEGREE AV BLOCK WITH FREQUENT SUPRAVENTRICULAR PREMATURE COMPLEXES LEFT ANTERIOR FASCICULAR BLOCK [QRS AXIS <= -45, QR IN I, RS IN II] SEPTAL MYOCARDIAL INFARCTION , PROBABLY OLD [40+ ms Q WAVE IN V1/V2] MODERATE T-WAVE ABNORMALITY, CONSIDER LATERAL ISCHEMIA [-0.1+ mV T-WAVE IN I/aVL/V5/V6] Compared to ECG 05/15/2025 11:17:00 First degree AV block now present T-wave abnormality now present Possible ischemia now present Sinus rhythm no longer present Myocardial infarct finding still present Electronically Signed On 07-27-2025 13:30:44 CDT by Te Marino M.D.
[2025-07-27 13:16] LABS: Hematocrit 29.0 % (42.0-52.0); Hemoglobin 9.1 g/dL (14.0-18.0); Immature Granulocyte Percent A 1.1 % (0-0.5); Lymphocytes Absolute Auto 2.06 K/mm3 (0.9-3.2); Mean Corpuscular HGB Conc 31.4 g/dl (32-36); Mean Corpuscular Hemoglobin 29.8 pg (26-34); Mean Corpuscular Volume 95.1 fl (80-100); Nucleated Red Blood Cells Absolute Auto 0.000 K/mm3 (0.0-0.012); Nucleated Red Blood Cells Perc 0.0 % (0.0-0.2); Platelet Count Result 264 k/mm3 (150-375); Red Blood Count 3.05 M/mm3 (4.6-6.20); White Blood Count 24.4 K/mm3 (4.5-10.0)
[2025-07-27 13:36] LABS: INR 1.4; Prothrombin Time 17.4 Seconds (11.1-14.7)
[2025-07-27 13:37] LABS: Partial Thromboplastin Time 34.5 Seconds (22.3-36.8)
[2025-07-27 13:39] LABS: Alanine Aminotransferase 53 U/L (6-50); Albumin Level 3.2 g/dL (3.5-5.1); Alkaline Phosphatase 164 U/L (38-126); Anion Gap 14 mmol/L (4-12); Aspartate Amino Transferase 42 U/L (17-59); Bilirubin,Total 0.7 mg/dL (0.2-1.3); Blood Urea Nitrogen 64 mg/dL (9-20); Calcium 8.7 mg/dL (8.4-10.2); Carbon Dioxide 23 mmol/L (22-30); Chloride 100 mmol/L (98-107); Estimated CRCL calculation 16 ml/min; Estimated Glomerular Filt Rate 16; Glucose 129 mg/dL (65-110); Potassium 4.7 mmol/L (3.4-5.0); Sodium 137 mmol/L (137-145); Total Protein 6.9 g/dL (6.3-8.2)
--- NOTE | 2025-07-27 14:06 | PC.NURSE ---
perdomo catheter changed out at this time, patient tolerated well. not enough urine in perdomo bag to send for urinalysis - will send urine sample as soon as enough is collected
--- OUTSIDE RECORDS SUMMARY | 2025-07-27 14:20 | XMS_ITS | Clinical Summary ---
Author Organization [facility] [address] [place] [address] Care Team Providers Care Pool Servicer Name Role Phone Ronnell Zhang MD Primary Care Provider [phone] Allergies No known active allergies Medications metoprolol [...] (15 mg total) by mouth nightly Active apixaban (ELIQUIS) 5 mg tabletIndications :atrial [...] History Date Comments Type 2 diabetes mellitus Stroke (HCC) Hypertension Arthritis Atrial fibrillation, unspecified type (HCC) HLD (hyperlipidemia) Depression Anemia Social History Tobacco Use Types Packs/Day Years Used Date Smoking Tobacco: Every Day Cigarettes Smokeless Tobacco: Never Alcohol Use Standard Drinks/Week Comments Not Currently 0 (1 standard drink = 0.6 oz pur e alcohol) [facility] Utilities Answer Date Recorded In the past 12 months has th e electric, gas, oil, or water company threatened to shut off services in your home? No 04/30/2024 Social Connection and Isolation Panel Answer Date Recorded In a typical week, how many times do you talk on the phone with family, friends, or neighbors? Twice a week 04/30/2024 How often do you get togethe r with friends or relatives? Once a week 04/30/2024 How often do you attend amish or protestant serv ices? Never 04/30/2024 Do you belong to any clubs o r organizations such as amish groups, unions, fraternal or athletic groups, or [...] place to sleep or slept in a [place] (including now)? No 11/03/2023 Housing Stability Vital Sign Answer Bello e Recorded In the last 12 months, was t here a time when you were not able to pay the mortgage or rent on time? No 04/30/2024 In the past 12 months, how m any times have you moved where you were living? 1 04/30/2024 At any time in the past 12 m [facility], were you homeless or living in a [place] (including now)? No 04/30/2024 Personal Safety Answer [...] on file Legal Sex Male 9:18 AM [employer]ATION [employer] Gender Identity Not on file Sexual Orientation [...] Fall Risk Assessment 05/01/2025 05/01/2024 Influenza Vaccine (#1) 2025 Prostate Cancer Screening-PSA Discontinued 11/03/2023 Abdominal Aortic Aneurysm (AAA) Screen Completed , 11/03/2023 Procedures Procedure Name Priority Date/Time Associated Diagnosis Comments CT CHEST ABDOMEN PELVIS WO CONTRAST ED 04/27/2024 6:13 PM CDT PSA SCREEN Routine 11/03/2023 6:24 PM [employer]ATION [employer] from Last 3 Months or Most Recently [...] Rashel Camacho M.D. CH: JACLYN Report ID: [id number] Reading Location: [place] [address] Procedure Note Rashel Camacho Jr., MD - [...] Rashel Camacho M.D. CH: JACLYN Report ID: [id number] Reading Location: [id number] Sebastian Ann MD IMG CT PROCEDURES Final Res ult * (ABNORMAL) PSA screen (11/03/2023 6:24 PM [employer]ATION [employer]) PSA-Total 11.60(H) <=5.40 ng/mL NEO GONZALES (EUNICE) [...] last revised 22. Blood 11/03/2023 6:24 PM [employer]ATION [employer] 11/03/2023 6:32 PM [employer]ATION [employer] Jose Rahman MD LAB BLOOD ORDERABLES Final Result NEO JANET ([place]) 1 [facility] Department of Laboratories [place], [place] [id number] from Last 3 Months or Most Recently Relevant to Health Maintenance Insurance MEDICARE [employer] [place] [address] MEDICARE [facility] Advance Directives For more information, please contact: [phone] * Full Code (Latest Code Status on File) Date Activated Date Inactivated Comments 04/27/2024 9:18 PM 05/01/2024 10:25 PM * Full Code Date Activated Date Inactivated Comments 11/03/2023 3:49 AM 11/10/2023 6:43 PM Care Teams Pool Servicer Relationship Specialty Start Date End Date Ronnell Zhang MD [address] [place] [address] PCP - General Family Medicine 11/02/23
[2025-07-27 14:51] LABS: CRP 7.0 mg/dL (<1.0)
--- NOTE | 2025-07-27 15:02 | ED.AMS ---
HPI - Altered Mental Status General Chief Complaint: Altered Mental Status <GILLES Villavicencio Last Filed: 07/27/25 19:38> Stated Complaint: ams <GILLES Villavicencio Last Filed: 07/27/25 19:38> Time Seen by Provider: 07/27/25 14:09 <GILLES Villavicencio Last Filed: 07/27/25 19:38> Source: patient <GILLES Villavicencio Last Filed: 07/27/25 19:38> Mode of arrival: EMS <GILLES Villavicencio Last Filed: 07/27/25 19:38> Limitations: altered mental status <GILLES Villavicencio Last Filed: 07/27/25 19:38> History of Present Illness HPI narrative: This is a 70 year old male that presents to the ER for altered mental status. Patient found to be lethargic today. Daughter concerned for aspiration pneumonia. <GILLES Villavicencio Last Filed: 07/27/25 19:38> Related Data Home Medications: Home Medications ?Medication ?Instructions ?Recorded ?Confirmed ?Last Taken ?Type apixaban 5 mg tablet 5 mg PO BID 05/15/25 05/15/25 05/15/25 08:25 History atorvastatin 40 mg tablet 40 mg PO DAILY 05/15/25 05/15/25 05/15/25 08:25 History finasteride 5 mg tablet (Proscar) 5 mg PO QAM 05/15/25 05/15/25 05/15/25 08:25 History metoprolol tartrate 50 mg tablet 50 mg PO Q12HR 05/15/25 05/15/25 05/15/25 08:25 History <GILLES Villavicencio Last Filed: 07/27/25 19:38> Allergies/Adverse Reactions: Allergies Allergy/AdvReac Type Severity Reaction Status Date / Time No Known Allergies Allergy Mild Verified 05/15/25 14:10 <GILLES Villavicencio Last Filed: 07/27/25 19:38> Review of Systems Review of Systems: ROS unobtainable: Yes unobtainable due to mental status <Ashley Rainey PA-C - Last Filed: 07/27/25 19:38> [facility] Past Medical History Medical History: Medical History Chronic anemia PAF (paroxysmal atrial fibrillation) Combined systolic and diastolic congestive heart failure CKD (chronic kidney disease) Anxiety Arthritis TIA (transient ischemic attack) CVA (cerebral vascular accident) Per MRI on 03/20/2024, old infarcts in the bilateral basal ganglia Indwelling Bosch catheter present Non-insulin dependent diabetes mellitus Normocytic anemia Hyperlipidemia Neurogenic bladder Obstructive uropathy BPH loc w urin obs/LUTS Hypertension <Ashley Rainey PA-C - Last Filed: 07/27/25 19:38> Surgical History Surgical History: Surgical History History of appendectomy <Ashley Rainey PA-C - Last Filed: 07/27/25 19:38> Family History Family History: Family History Father Cerebrovascular accident Mother Alcohol abuse Alcohol abuse by patient's mother Heart attack Hypertension <Ashley Rainey PA-C - Last Filed: 07/27/25 19:38> Social History Social History: Social History Social History: Has a daughter Smoking packs per day: 1 Smoking cigarettes per day: 20.0 Years smoked: 20 Smoking pack-years: 20.00 Smoking status: Current every day smoker Second hand tobacco smoke exposure: Yes Additional smoking assessment comments: pt states he started smoking when he got at the age of 39 Alcohol intake: former Drinks per week: 1 Alcohol use details: couple times a week (happy hour) Substance use: current Substance use type: marijuana Other substance usage details: smokes marijuana when friends bring it to him Last use: 04/04/25 Do You Feel Safe in your Home?: Yes Lack of Transportation: No Lack of Food: Never True Current Housing: I Have Housing Concerned About Future Housing: No Difficulty Paying Gas/Electric Bills: No Difficulty Paying for Meds: No Currently Unemployed: No Education: High School Diploma/GED Difficulty w/ Childcare or Family Care: No Living arrangements: assisted living Spiritual care concerns: No <Ashley Rainey PA-C - Last Filed: 07/27/25 19:38> Exam Narrative: GENERAL: Elderly, well-nourished, and in no acute distress. HEAD: Normocephalic, atraumatic. EYES: PERRLA and EOMI. ENT: Nares clear, no rhinorrhea or epistaxis. Mucous membranes moist. Oropharynx without tonsillar hypertrophy exudate or other lesions. NECK: Supple. No adenopathy or masses. CHEST: No respiratory distress. Breath sounds are coarse. No wheezes or rhonchi HEART: Regular rate and rhythm. No murmur heard. Normal peripheral pulses. ABDOMEN: Soft, nontender, nondistended, normal active bowel sounds. EXTREMITIES: Normal range of motion. No edema. SKIN: Warm, dry, no rash. NEURO: No focal deficits. Alert and oriented x3. PSYCH: Normal mood and affect <Ashley Rainey PA-C - Last Filed: 07/27/25 19:38> Course ASSURANCE AUDITOR/PA Physician Supervision This visit was performed by both a physician and an APC. For this patient encounter, I reviewed the ASSURANCE AUDITOR or PA documentation, treatment plan, and medical decision making and had [id number] time with this patient. I performed all aspects of the MDM as documented. <Becky Elise MD - Last Filed: 07/27/25 21:33> Consultations Consultation #1: Spoke with hospitalist about patient and workup who accepts admission <Ashley Rainey PA-C - Last Filed: 07/27/25 19:38> Date: 07/27/25 <Ashley Rainey PA-C - Last Filed: 07/27/25 19:38> Vital Signs Vital signs: Vital Signs Temperature 97.6 F 07/27/25 12:44 Pulse Rate 97 07/27/25 12:44 Respiratory Rate 32 H 07/27/25 12:44 Blood Pressure 107/48 L 07/27/25 12:44 Pulse Oximetry 96 07/27/25 12:44 Oxygen Delivery Room Air 07/27/25 12:44 Temperature 97.6 F 07/27/25 12:44 Pulse Rate 94 07/27/25 19:31 Respiratory Rate 15 07/27/25 19:31 Blood Pressure 139/74 07/27/25 19:31 Pulse Oximetry 100 07/27/25 19:39 Oxygen Delivery Nasal Cannula 07/27/25 19:39 Oxygen Flow Rate 3 07/27/25 19:39 <Ashley Rainey PA-C - Last Filed: 07/27/25 19:38> Vital Signs Temperature 97.6 F 07/27/25 12:44 Pulse Rate 97 07/27/25 12:44 Respiratory Rate 32 H 07/27/25 12:44 Blood Pressure 107/48 L 07/27/25 12:44 Pulse Oximetry 96 07/27/25 12:44 Oxygen Delivery Room Air 07/27/25 12:44 Temperature 97.6 F 07/27/25 12:44 Pulse Rate 94 07/27/25 19:31 Respiratory Rate 15 07/27/25 19:31 Blood Pressure 139/74 07/27/25 19:31 Pulse Oximetry 100 07/27/25 19:39 Oxygen Delivery Nasal Cannula 07/27/25 19:39 Oxygen Flow Rate 3 07/27/25 19:39 <Becky Elise MD - Last Filed: 07/27/25 21:33> MDM - Altered Mental Status MDM Narrative Medical decision making narrative: Patient presents to the emergency department for lethargy, coarse cough. Patient is afebrile. Lung sounds are coarse. Blood pressure soft, but responsive to fluids. CBC with leukocytosis to 24.4. Hemoglobin appears stable. Kidney function appears stable. Chest x-ray is not showing any overt pneumonia, blood cultures obtained patient started on IV antibiotics for presumptive pneumonia. Urine also appears infected. CT brain without acute findings. Patient's oxygen saturation dipped into the upper 80s on room air, placed on 2 L nasal cannula. Will be admitted for further management <Ashley Rainey PA-C - Last Filed: 07/27/25 19:38> Differential Diagnosis Differential diagnosis: Likely altered mental status, delirium, sepsis and other (pneumonia, UTI) <Ashley Rainey PA-C - Last Filed: 07/27/25 19:38> Lab Data Attestation: I reviewed the patient's lab results. <Ashley Rainey PA-C - Last Filed: 07/27/25 19:38> Result diagrams: 07/27/25 13:11 07/27/25 13:11 <Ashley Rainey PA-C - Last Filed: 07/27/25 19:38> Labs: Lab Results 07/27/25 Range/Units 13:11 WBC 24.4 H (4.5-10.0) K/mm3 RBC 3.05 L (4.6-6.20) M/mm3 Hgb 9.1 L (14.0-18.0) g/dL Hct 29.0 L (42.0-52.0) % MCV 95.1 (80-100) fl MCH 29.8 (26-34) pg MCHC 31.4 L (32-36) g/dl RDW 14.8 H (11.5-14.5) % Plt Count 264 (150-375) k/mm3 MPV 8.7 (7.4-10.4) fl Immature Gran % (Auto) 1.1 H (0-0.5) % Neut % (Auto) 83.8 H (45.5-73.1) % Lymph % (Auto) 8.5 L (18.3-44.2) % Kingfisher % (Auto) 6.0 (2.6-8.5) % Eos % (Auto) 0.4 (0-4.4) % Baso % (Auto) 0.2 (0.2-1.2) % Lymph # (Auto) 2.06 (0.9-3.2) K/mm3 King[place]isher # (Auto) 1.5 H (0.1-0.6) K/mm3 Eos # (Auto) 0.1 (0-0.3) K/mm3 Baso # (Auto) 0.1 (0.0-0.1) K/mm3 Abs Immat Gran (auto) 0.27 H (0.00-0.031) K/mm3 Absolute Neuts (auto) 20.4 H (1.3-6.7) K/mm3 Absolute Nucleated RBC 0.000 (0.0-0.012) K/mm3 Nucleated RBC % 0.0 (0.0-0.2) % PT 17.4 H (11.1-14.7) Seconds INR 1.4 APTT 34.5 (22.3-36.8) Seconds Sodium 137 (137-145) mmol/L Potassium 4.7 (3.4-5.0) mmol/L Chloride 100 (98-107) mmol/L Carbon Dioxide 23 (22-30) mmol/L Anion Gap 14 H (4-12) mmol/L BUN 64 H (9-20) mg/dL Creatinine 3.66 H (0.7-1.3) mg/dL Estim Creat Clear Calc 16 ml/min Estimated GFR 16 L (59 - ) Glucose 129 H (65-110) mg/dL Calcium 8.7 (8.4-10.2) mg/dL Total Bilirubin 0.7 (0.2-1.3) mg/dL AST 42 (17-59) U/L ALT 53 H (6-50) U/L Alkaline Phosphatase 164 H (38-126) U/L C-Reactive Protein 7.0 H (<1.0) mg/dL Total Protein 6.9 (6.3-8.2) g/dL Albumin 3.2 L (3.5-5.1) g/dL <Ashley Rainey PA-C - Last Filed: 07/27/25 19:38> Lab Results 07/27/25 Range/Units 13:11 WBC 24.4 H (4.5-10.0) K/mm3 RBC 3.05 L (4.6-6.20) M/mm3 Hgb 9.1 L (14.0-18.0) g/dL Hct 29.0 L (42.0-52.0) % MCV 95.1 (80-100) fl MCH 29.8 (26-34) pg MCHC 31.4 L (32-36) g/dl RDW 14.8 H (11.5-14.5) % Plt Count 264 (150-375) k/mm3 MPV 8.7 (7.4-10.4) fl Immature Gran % (Auto) 1.1 H (0-0.5) % Neut % (Auto) 83.8 H (45.5-73.1) % Lymph % (Auto) 8.5 L (18.3-44.2) % Kingfisher % (Auto) 6.0 (2.6-8.5) % Eos % (Auto) 0.4 (0-4.4) % Baso % (Auto) 0.2 (0.2-1.2) % Lymph # (Auto) 2.06 (0.9-3.2) K/mm3 Kingfisher # (Auto) 1.5 H (0.1-0.6) K/mm3 Eos # (Auto) 0.1 (0-0.3) K/mm3 Baso # (Auto) 0.1 (0.0-0.1) K/mm3 Abs Immat Gran (auto) 0.27 H (0.00-0.031) K/mm3 Absolute Neuts (auto) 20.4 H (1.3-6.7) K/mm3 Absolute Nucleated RBC 0.000 (0.0-0.012) K/mm3 Nucleated RBC % 0.0 (0.0-0.2) % PT 17.4 H (11.1-14.7) Seconds INR 1.4 APTT 34.5 (22.3-36.8) Seconds Sodium 137 (137-145) mmol/L Potassium 4.7 (3.4-5.0) mmol/L Chloride 100 (98-107) mmol/L Carbon Dioxide 23 (22-30) mmol/L Anion Gap 14 H (4-12) mmol/L BUN 64 H (9-20) mg/dL Creatinine 3.66 H (0.7-1.3) mg/dL Estim Creat Clear Calc 16 ml/min Estimated GFR 16 L (59 - ) Glucose 129 H (65-110) mg/dL Calcium 8.7 (8.4-10.2) mg/dL Total Bilirubin 0.7 (0.2-1.3) mg/dL AST 42 (17-59) U/L ALT 53 H (6-50) U/L Alkaline Phosphatase 164 H (38-126) U/L C-Reactive Protein 7.0 H (<1.0) mg/dL Total Protein 6.9 (6.3-8.2) g/dL Albumin 3.2 L (3.5-5.1) g/dL <Becky Elise MD - Last Filed: 07/27/25 21:33> Imaging Data Radiologist's impression: ITS Impressions Chest X-Ray 07/27/25 15:30 IMPRESSION: 1. No acute cardiopulmonary disease. Head CT 07/27/25 15:31 IMPRESSION: 1. 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 No acute intracranial process. 2. Stable appearance of age-related changes in the brain including moderate diffuse volume loss and mild to moderate scattered white matter hypoattenuation consistent with chronic small vessel ischemic disease. <Ashley Rainey PA-C - Last Filed: 07/27/25 19:38> Critical Care Time Critical Care Time Critical Care Time: Yes <GILLES Villavicencio Last Filed: 07/27/25 19:38> Total Critical Care Time: 35 <GILLES Villavicencio Last Filed: 07/27/25 19:38> Discharge Plan Discharge Clinical Impression: Acute hypoxic respiratory failure Pneumonia Qualifiers: Pneumonia type: aspiration pneumonia Aspiration pneumonia type: unspecified Laterality: bilateral Lung location: unspecified part of lung Qualified Code(s): J69.0 - Pneumonitis due to inhalation of food and vomit <Ashley Rainey PA-C - Last Filed: 07/27/25 19:38> Patient Disposition: Still a Patient <GILLES Villavicencio Last Filed: 07/27/25 19:38> Condition: Stable <GILLES Villavicencio Last Filed: 07/27/25 19:38>
[2025-07-27] MEDS: SODIUM CHLORIDE 0.9% IV 1,000 ML 999 ML IV CONT (16:00)
--- NOTE | 2025-07-27 19:14 | P.HP_ITS ---
H&P: HPI History of Present Illness Date/Time: 07/27/25 19:14 Chief Complaint: Altered mental status Narrative: 70-year-old male history of atrial fibrillation on apixaban, BPH presents the hospital with altered mental status. The daughter states that she was concerned that the patient aspirated. Patient will nod yes and no to questions. He states that he has no trouble breathing. He denies fevers or chills. His lung sounds are very coarse. HPI limited due to patient's altered mental status. Lab work in the ED shows leukocytosis at 24.4, hemoglobin of 9.1 which is around baseline, and gap of 14 BUN 64, creatinine of 3.66 which is around baseline, GFR 16 glucose of 129, ALT of 53 alkaline phos of 164, C-reactive protein 7, head CT shows no acute process, chest x-ray shows no acute process. EKG shows first- degree AV block with PVCs Review of Systems Review of Systems: ROS unobtainable: Yes unobtainable due to mental status PMFSH Past Medical History Medical History Chronic anemia PAF (paroxysmal atrial fibrillation) Combined systolic and diastolic congestive heart failure CKD (chronic kidney disease) Anxiety Arthritis TIA (transient ischemic attack) CVA (cerebral vascular accident) Per MRI on 03/20/2024, old infarcts in the bilateral basal ganglia Indwelling Bosch catheter present Non-insulin dependent diabetes mellitus Normocytic anemia Hyperlipidemia Neurogenic bladder Obstructive uropathy BPH loc w urin obs/LUTS Hypertension Surgical History Surgical History History of appendectomy Family History Family History Father Cerebrovascular accident Mother Alcohol abuse Alcohol abuse by patient's mother Heart attack Hypertension Social History Social History Social History: Has a daughter Smoking packs per day: 1 Smoking cigarettes per day: 20.0 Years smoked: 20 Smoking pack-years: 20.00 Smoking status: Current every day smoker Second hand tobacco smoke exposure: Yes Additional smoking assessment comments: pt states he started smoking when he got at the age of 39 Alcohol intake: former Drinks per week: 1 Alcohol use details: couple times a week (happy hour) Substance use: current Substance use type: marijuana Other substance usage details: smokes marijuana when friends bring it to him Last use: 04/04/25 Do You Feel Safe in your Home?: Yes Lack of Transportation: No Lack of Food: Never True Current Housing: I Have Housing Concerned About Future Housing: No Difficulty Paying Gas/Electric Bills: No Difficulty Paying for Meds: No Currently Unemployed: No Education: High School Diploma/GED Difficulty w/ Childcare or Family Care: No Living arrangements: assisted living Spiritual care concerns: No Meds Home Medications and Allergies Home Medications ?Medication ?Instructions ?Recorded ?Confirmed ?Type mirtazapine 15 mg tablet (Remeron) 15 mg feeding tube HS #30 tabs 10/17/24 05/15/25 Rx apixaban 5 mg tablet 5 mg PO BID 05/15/25 5 History atorvastatin 40 mg tablet 40 mg PO DAILY 05/15/2504/22 History finasteride 5 mg tablet (Proscar) 5 mg PO QAM 05/15/25 05/15/25 History metoprolol tartrate 50 mg tablet 50 mg PO Q12HR 05/15/25 History Allergies Allergy/AdvReac Type Severity Reaction Status Date / Time No Known Allergies Allergy Mild Verified 05/15/25 14:10 Vital Signs Vital Signs - 24 hr 07/27/25 12:44 07/27/25 13:20 07/27/25 13:23 Temperature 97.6 F Pulse Rate 97 98 Respiratory Rate 32 H 24 H Blood Pressure 107/48 L 124/60 Pulse Oximetry 96 98 98 Oxygen Delivery Room Air Room Air Exam Narrative: General: Chronically-ill, mild respiratory distress HEENT: normocephalic, atraumatic. Mucous membranes moist. EOMI, PERRLA, bilateral sclera anicteric, no conjunctival injection. Neck supple without JVD, lymphadenopathy, or bruit. Respiratory: Extremely coarse unable to cough up secretions Cardiovascular: Regular rate and rhythm, normal S1-S2 upon ascultation. No murmurs, rubs, or clicks. PMI is nondisplaced, capillary refill less than 3 second. Abdomen: Soft, round, no pulsatile masses, nondistended and nontender. No rebound, no guarding. Bowel sounds present to all four quadrants. No high pitch or tinkling sounds, resonant to percussion. Extremities: No cyanosis, clubbing, or edema present. Pulses are palpable 2/2. Active ROM to all four extremities. Neuro: Alert and orientated x 1. PERRLA. Cranial nerves 2-12 intact without focal deficit. Skin: Warm, dry, and intact, without rash, erythema, or lesion. Psych: pleasant, cooperative, normal speech, normal affect, no hallucinations, no dysarthia G-tube, chronic Bosch H&P: Results Labs Labs: Short CBC 07/27/25 Range/Units 13:11 WBC 24.4 H (4.5-10.0) K/mm3 Hgb 9.1 L (14.0-18.0) g/dL Hct 29.0 L (42.0-52.0) % Plt Count 264 (150-375) k/mm3 BMP 07/27/25 13:11 Sodium 137 Potassium 4.7 Chloride 100 Carbon Dioxide 23 BUN 64 H Creatinine 3.66 H Glucose 129 H Calcium 8.7 Liver Function 07/27/25 Range/Units 13:11 Total Bilirubin 0.7 (0.2-1.3) mg/dL AST 42 (17-59) U/L ALT 53 H (6-50) U/L Alkaline Phosphatase 164 H (38-126) U/L Albumin 3.2 L (3.5-5.1) g/dL Assessment and Plan Assessment and plan (1) Altered mental status: Code(s): R41.82 - Altered mental status, unspecified Status: Resolved Assessment and Plan: Could be due to infection versus electrolyte abnormality Treat underlying cause Frequent neuro checks Head CT with no acute process UA pending (2) Aspiration pneumonia: Qualifiers: Aspiration pneumonia type: unspecified Code(s): J69.0 - Pneumonitis due to inhalation of food and vomit Status: Acute Assessment and Plan: IV meropenem IVF Blood cultures pending UA pending COVID flu RSV negative Lactic acid (3) Diabetes: Qualifiers: Diabetes mellitus complication status: without complication Diabetes mellitus 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 insulin use: without 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 use Diabetes mellitus type: type 2 Qualified Code(s): E11.9 - Type 2 diabetes mellitus without complications Code(s): E11.9 - Type 2 diabetes mellitus without complications Status: Chronic Assessment and Plan: VICENTA [email or web address] SSI Dietary consulted (4) Dysphagia: Qualifiers: Dysphagia type: esophageal phase Qualified Code(s): R13.19 - Other dysphagia Code(s): R13.10 - Dysphagia, unspecified Status: Acute Assessment and Plan: G-tube dependent (5) Stage 3a chronic kidney disease: Code(s): N18.31 - Chronic kidney disease, stage 3a Status: Chronic Assessment and Plan: Avoid nephrotoxic medications (6) BPH (benign prostatic hyperplasia): Code(s): N40.0 - Benign prostatic hyperplasia without lower urinary tract symptoms Status: Acute Assessment and Plan: Continue home med Quality VTE Prophylaxis VTE prophylaxis: mechanical ordered and pharmacologic ordered Hospitalist MIPS Advance Care Plan I have confirmed that the patient's Advanced Care Plan is present, code status is documented, or surrogate decision maker is listed in patient medical record.: Yes Medication Reconciliation I have utilized all available resources to obtain, update and review the patients current medications (includes all prescriptions, OTC, herbals, cannabis, and nutritional supplements).: Yes
[2025-07-27] MEDS: MEROPENEM 500 MG in SODIUM CHLORIDE 0.9% IV 100 ML 200 ML IVPB (19:31)
[2025-07-27 20:08] LABS: Influenza A QL RT-PCR Negative (Negative); Influenza B QL RT-PCR Negative (Negative); RSV RNA, RT-PCR Negative (Negative); SARS-CoV-2 RNA PCR Negative (Negative)
[2025-07-27] MEDS: SODIUM CHLORIDE 0.9% IV 1,000 ML 100 ML IV CONT (20:14)
--- NOTE | 2025-07-27 21:44 | PC.NURSE ---
This patient, Yvan Chau, was admitted to IMU Room 205-02. Patient/family oriented to hospital policies and general routines including ID bracelet, bed and alarms, visiting hours, pain management, procedures, bathroom and other care routines, personal items, smoking policy, room service/diet, and visiting hours. Information on how to activate the Rapid Response Team has been discussed. Patient/Family are encouraged to report perceived risks to care and to ask questions if they do not understand what they are told or what they should do.
--- NOTE | 2025-07-27 21:57 | WNDPHOTO ---
PHOTO ONLY - See Nursing Notes and/ or assessments for documentation.
[2025-07-27 23:04] LABS: Add Urine Microscopic? YES; Appearance Urine Turbid (Clear); Glucose Urine UA Negative (Negative); Leukocyte Esterase Ur 3+ LEU/UL (Negative); Need Manual Microscopic Reviewed; Nitrate Urine Negative (Negative); Non Pathogenic Casts >20; Specific Grav Ur 1.015 (1.001-1.035)
[2025-07-28] VITALS (14 sets, daily range): BP systolic 103–146; BP diastolic 52–68; PULSE 68–94; RESP 15–24; TEMP 36.3–36.6; O2SAT 90–97
[2025-07-28 03:19] LABS: Hematocrit 22.3 % (42.0-52.0); Immature Granulocyte Percent A 0.7 % (0-0.5); Lymphocytes Absolute Auto 3.07 K/mm3 (0.9-3.2); Mean Corpuscular HGB Conc 30.9 g/dl (32-36); Mean Corpuscular Hemoglobin 30.1 pg (26-34); Mean Corpuscular Volume 97.4 fl (80-100); Nucleated Red Blood Cells Absolute Auto 0.000 K/mm3 (0.0-0.012); Nucleated Red Blood Cells Perc 0.0 % (0.0-0.2); Platelet Count Result 211 k/mm3 (150-375); Red Blood Count 2.29 M/mm3 (4.6-6.20); White Blood Count 22.5 K/mm3 (4.5-10.0)
[2025-07-28 03:21] LABS: Hemoglobin 6.9 g/dL (14.0-18.0)
[2025-07-28 03:33] LABS: Anion Gap 8 mmol/L (4-12); Blood Urea Nitrogen 67 mg/dL (9-20); Calcium 8.3 mg/dL (8.4-10.2); Carbon Dioxide 24 mmol/L (22-30); Chloride 105 mmol/L (98-107); Estimated CRCL calculation 16 ml/min; Estimated Glomerular Filt Rate 16; Glucose 103 mg/dL (65-110); Potassium 4.5 mmol/L (3.4-5.0); Sodium 137 mmol/L (137-145)
[2025-07-28 03:37] LABS: Anisocytosis 1+; Hypochromasia 1+; Ovalocytes 1+
[2025-07-28 03:38] LABS: Schistocytes None Seen
[2025-07-28 03:49] LABS: Hematocrit 23.2 % (42.0-52.0); Hemoglobin 7.2 g/dL (14.0-18.0); Immature Granulocyte Percent A 0.7 % (0-0.5); Lymphocytes Absolute Auto 3.21 K/mm3 (0.9-3.2); Mean Corpuscular HGB Conc 31.0 g/dl (32-36); Mean Corpuscular Hemoglobin 29.6 pg (26-34); Mean Corpuscular Volume 95.5 fl (80-100); Nucleated Red Blood Cells Absolute Auto 0.000 K/mm3 (0.0-0.012); Nucleated Red Blood Cells Perc 0.0 % (0.0-0.2); Platelet Count Result 214 k/mm3 (150-375); Red Blood Count 2.43 M/mm3 (4.6-6.20); White Blood Count 22.7 K/mm3 (4.5-10.0)
[2025-07-28] MEDS: SODIUM CHLORIDE 0.9% IV 1,000 ML 100 ML IV CONT ×2 (05:36→14:58)
[2025-07-28 09:53] LABS: Hematocrit 22.4 % (42.0-52.0); Hemoglobin 7.0 g/dL (14.0-18.0)
[2025-07-28] MEDS: MEROPENEM 500 MG in SODIUM CHLORIDE 0.9% IV 100 ML 200 ML IVPB ×2 (10:20→21:03)
[2025-07-28] MEDS: FINASTERIDE 5 MG TABLET FEED TUBE (10:21)
[2025-07-28] MEDS: ATORVASTATIN 40 MG TABLET FEED TUBE (10:21)
[2025-07-28] MEDS: METOPROLOL TARTRATE 50 MG TAB FEED TUBE ×2 (10:21→21:05)
--- NOTE | 2025-07-28 11:10 | PCSTNOTE ---
Please refer to the Bedside Swallow Evaluation in the EMR. Please note, silent aspiration cannot be ruled out at bedside.
--- NOTE | 2025-07-28 12:32 | P.PNIM_ITS ---
Progress Note: A&P Assessment and Plan (1) Altered mental status: Code(s): R41.82 - Altered mental status, unspecified Status: Resolved Assessment and Plan: resolved, patient alert and oriented Head CT with no acute process UA pending (2) Aspiration pneumonia: Qualifiers: Aspiration pneumonia type: unspecified Code(s): J69.0 - Pneumonitis due to inhalation of food and vomit Status: Acute Assessment and Plan: CXR showed no acute changes still Leukocytosis IV meropenem and Doxycycline Follow up culture and CT Chest Lactic acid ST recommends NPO, continue Tube feeds (3) Diabetes: Qualifiers: Diabetes mellitus type: type 2 Diabetes mellitus 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: without equipment operator intermodal yard use Diabetes mellitus complication status: without complication Qualified Code(s): E11.9 - Type 2 diabetes mellitus without complications Code(s): E11.9 - Type 2 diabetes mellitus without complications Status: Chronic Assessment and Plan: NPO Accu-Cheks q.6 SSI Dietary consulted (4) Dysphagia: Qualifiers: Dysphagia type: esophageal phase Qualified Code(s): R13.19 - Other dysphagia Code(s): R13.10 - Dysphagia, unspecified Status: Acute Assessment and Plan: G-tube dependent (5) Stage 3a chronic kidney disease: Code(s): N18.31 - Chronic kidney disease, stage 3a Status: Chronic Assessment and Plan: Avoid nephrotoxic medications (6) BPH (benign prostatic hyperplasia): Code(s): N40.0 - Benign prostatic hyperplasia without lower urinary tract symptoms Status: Acute Assessment and Plan: Continue home med Plan Anemia Hb 7.0 B12/folate, Iron panel, FOBT monitor H and H DVT prophylaxis on Subjective Date/time seen: 07/28/25 12:32 Interval history: Comfortable at bedside ST evaluated and recommended NPO Review of Systems Review of Systems: ROS unobtainable: Yes unobtainable due to mental status Exam Narrative: General: Chronically-ill, mild respiratory distress HEENT: normocephalic, atraumatic. Mucous membranes moist. EOMI, PERRLA, bilateral sclera anicteric, no conjunctival injection. Neck supple without JVD, lymphadenopathy, or bruit. Respiratory: Extremely coarse unable to cough up secretions Cardiovascular: Regular rate and rhythm, normal S1-S2 upon ascultation. No murmurs, rubs, or clicks. PMI is nondisplaced, capillary refill less than 3 second. Abdomen: Soft, round, no pulsatile masses, nondistended and nontender. No rebound, no guarding. Bowel sounds present to all four quadrants. No high pitch or tinkling sounds, resonant to percussion. Extremities: No cyanosis, clubbing, or edema present. Pulses are palpable 2/2. Active ROM to all four extremities. Neuro: Alert and orientated x 1. PERRLA. Cranial nerves 2-12 intact without focal deficit. Skin: Warm, dry, and intact, without rash, erythema, or lesion. Psych: pleasant, cooperative, normal speech, normal affect, no hallucinations, no dysarthia G-tube, chronic Bosch Objective Data Vital Signs Vital Signs: Vital Signs - 24 hr 07/27/25 12:44 07/27/25 13:20 07/27/25 13:23 Temperature 97.6 F Pulse Rate 97 98 Respiratory Rate 32 H 24 H Blood Pressure 107/48 L 124/60 Pulse Oximetry 96 98 98 Oxygen Delivery Room Air Room Air Oxygen Flow Rate 07/27/25 19:31 07/27/25 19:39 07/27/25 21:44 Temperature 97.6 F Pulse Rate 94 86 Respiratory Rate 15 15 Blood Pressure 139/74 152/80 H Pulse Oximetry 100 100 100 Oxygen Delivery Nasal Cannula Oxygen Flow Rate 3 07/27/25 21:50 07/27/25 22:20 07/27/25 23:06 Temperature Pulse Rate 96 Respiratory Rate Blood Pressure Pulse Oximetry 97 96 Oxygen Delivery Nasal Cannula Nasal Cannula Oxygen Flow Rate 1 1 07/27/25 23:16 07/28/25 00:00 07/28/25 00:00 Temperature 97.6 F Pulse Rate 78 82 Respiratory Rate 15 Blood Pressure 103/52 L Pulse Oximetry 98 93 Oxygen Delivery Room Air Oxygen Flow Rate 07/28/25 02:00 07/28/25 04:00 07/28/25 04:00 Temperature 97.9 F Pulse Rate 84 88 Respiratory Rate 15 Blood Pressure 146/66 H Pulse Oximetry 97 96 Oxygen Delivery Room Air Oxygen Flow Rate 07/28/25 04:00 07/28/25 06:00 07/28/25 08:00 Temperature 97.4 F L Pulse Rate 90 90 89 Respiratory Rate 20 Blood Pressure 129/52 L Pulse Oximetry 95 Oxygen Delivery Oxygen Flow Rate 07/28/25 10:21 07/28/25 12:00 Temperature 97.8 F Pulse Rate 94 68 Respiratory Rate 20 Blood Pressure 111/56 L Pulse Oximetry 97 Oxygen Delivery Oxygen Flow Rate Intake/Output Intake/Output: Intake & Output 07/25/25 07/26/25 07/27/25 07/28/25 23:59 23:59 23:59 23:59 Intake Total 1100 936.7 Output Total 120 Balance 1100 816.7 Meds/Results Medications: Active Medications Generic Name Dose Route Start Last Admin Trade Name Freq PRN Reason Stop Dose Admin Apixaban 5 mg 07/28/25 09:00 07/28/25 10:17 Apixaban 5 Mg Tablet FEED TUBE Not Given BID BASSEM Atorvastatin Calcium 40 mg 07/28/25 09:00 07/28/25 10:21 Atorvastatin 40 Mg Tablet FEED TUBE 40 mg DAILY BASSEM Administration Dextrose 12.5 gm 07/27/25 19:36 Dextrose 50% 25 Gm/50 Ml Syringe IV PUSH PRN PRN Hypoglycemia Protocol Finasteride 5 mg 07/28/25 09:00 07/28/25 10:21 Finasteride 5 Mg Tablet FEED TUBE 5 mg QAM BASSEM Administration Glucagon 1 mg 07/27/25 19:36 Glucagon For Inj 1 Mg Vial IM PRN PRN Hypoglycemia Protocol Glucose 15 gm 07/27/25 19:36 Glucose Oral Gel 15 Gm Of Glucse In 37.5 Gm Tube PO PRN PRN Hypoglycemia Protocol Guaifenesin/Dextromethorphan 10 ml 07/27/25 23:00 07/28/25 03:38 Guaifenesin/Dextromethorphan 10 Ml Udc FEED TUBE 10 ml Q4HR BASSEM Administration Meropenem 500 mg/ Sodium 100 mls @ 200 mls/hr 07/28/25 08:00 07/28/25 10:20 Chloride IVPB 200 mls/hr Q12H BASSEM Administration Sodium Chloride 1,000 mls @ 100 mls/hr 07/27/25 19:40 07/28/25 05:36 Normal Saline Iv IV CONT 100 mls/hr .Q10H BASSEM Administration Dextrose 1,000 mls @ 100 mls/hr 07/27/25 19:36 Dextrose 5% 1,000 Ml IVPB PRN PRN Hypoglycemia Protocol Insulin Aspart 2 - 5 units 07/28/25 00:00 07/28/25 05:36 Insulin Aspart (*Bkc) 100 Units/Ml SUB-Q Not Given Q6HR BASSEM Protocol Metoprolol Tartrate 50 mg 07/28/25 09:00 07/28/25 10:21 Metoprolol Tartrate 50 Mg Tab FEED TUBE 50 mg Q12HR [facility] Administration Mirtazapine 15 mg 07/28/25 21:00 Mirtazapine 15 Mg Tablet FEED TUBE [facility] Radiology Results: ITS Impressions Chest X-Ray 07/27/25 15:30 IMPRESSION: 1. No acute cardiopulmonary disease. Head CT 07/27/25 15:31 IMPRESSION: 1. 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 No acute intracranial process. 2. Stable appearance of age-related changes in the brain including moderate diffuse volume loss and mild to moderate scattered white matter hypoattenuation consistent with chronic small vessel ischemic disease. Labs Labs: Laboratory Results - last 24 hr 07/27/25 07/27/25 07/27/25 13:11 18:39 19:25 WBC 24.4 H RBC 3.05 L Hgb 9.1 L Hct 29.0 L MCV 95.1 MCH 29.8 MCHC 31.4 L RDW 14.8 H Plt Count 264 MPV 8.7 Immature Gran % (Auto) 1.1 H Neut % (Auto) 83.8 H Lymph % (Auto) 8.5 L Carter % (Auto) 6.0 Eos % (Auto) 0.4 Baso % (Auto) 0.2 Lymph # (Auto) 2.06 Carter # (Auto) 1.5 H Eos # (Auto) 0.1 Baso # (Auto) 0.1 Abs Immat Gran (auto) 0.27 H Absolute Neuts (auto) 20.4 H Absolute Nucleated RBC 0.000 Band Neutrophils % Nucleated RBC % 0.0 Platelet Estimate Hypochromasia Anisocytosis Ovalocytes Schistocytes PT 17.4 H INR 1.4 APTT 34.5 Sodium 137 Potassium 4.7 Chloride 100 Carbon Dioxide 23 Anion Gap 14 H BUN 64 H Creatinine 3.66 H Estim Creat Clear Calc 16 Estimated GFR 16 L Glucose 129 H POC Capillary Glucose Lactic Acid 2.0 Calcium 8.7 Total Bilirubin 0.7 AST 42 ALT 53 H Alkaline Phosphatase 164 H C-Reactive Protein 7.0 H Total Protein 6.9 Albumin 3.2 L Urine Color Cancelled Urine Appearance Cancelled Urine pH Cancelled Ur Specific Wagner Cancelled Urine Protein Cancelled Urine Glucose (UA) Cancelled Urine Ketones Cancelled Ur Blood (Man) Cancelled Urine Nitrate Cancelled Urine Bilirubin Cancelled Urine Urobilinogen Cancelled Add Ur Microanalysis Cancelled Leukocyte Esterase Rfl Cancelled Urine RBC Cancelled Urine WBC Cancelled Urine WBC Clumps Cancelled Ur Squamous Epith Cells Cancelled Ur Transition Epith Cell Cancelled Ur Renal Epithelial Cell Cancelled [place] Biurate Crystals Cancelled Calcium Carbonate Cryst Cancelled Calcium Phosphate Cryst Cancelled Calcium Oxalate Crystal Cancelled Leucine Crystals Cancelled Cystine Crystals Cancelled Uric Acid Crystals Cancelled Triple Phos Crystals Cancelled Sulfonamide Crystals Cancelled Cholesterol Crystals Cancelled Talc Crystals Cancelled Tyrosine Crystals Cancelled Hippuric Acid Crystals Cancelled Bilirubin Crystals Cancelled Other Crystals Cancelled Amorphous Sediment Cancelled Other Sediment Cancelled Urine Bacteria Cancelled Urine Casts Cancelled Cellular Casts Cancelled Epithelial Casts Cancelled Fatty Casts Cancelled Hyaline Casts Cancelled Granular Casts Cancelled Waxy Casts Cancelled Broad Casts Cancelled RBC Casts Cancelled WBC Casts Cancelled Urine Starch Cancelled Urine Mucus Cancelled Urine Trichomonas Cancelled Urine Yeast (Budding) Cancelled Ur Oval Fat Bodies Cancelled Sperm Presence Cancelled Influenza A (RT-PCR) Negative Influenza B (RT-PCR) Negative RSV (RT-PCR) Negative SARS-CoV-2 RNA (RT-PCR) Negative 07/27/25 07/27/25 07/28/25 22:39 22:45 00:38 WBC RBC Hgb Hct MCV MCH MCHC RDW Plt Count MPV Immature Gran % (Auto) Neut % (Auto) Lymph % (Auto) Carter % (Auto) Eos % (Auto) Baso % (Auto) Lymph # (Auto) Carter # (Auto) Eos # (Auto) Baso # (Auto) Abs Immat Gran (auto) Absolute Neuts (auto) Absolute Nucleated RBC Band Neutrophils % Nucleated RBC % Platelet Estimate Hypochromasia Anisocytosis Ovalocytes Schistocytes PT INR APTT Sodium Potassium Chloride Carbon Dioxide Anion Gap BUN Creatinine Estim Creat Clear Calc Estimated GFR Glucose POC Capillary Glucose 124 H Lactic Acid 2.3 H Calcium Total Bilirubin AST ALT Alkaline Phosphatase C-Reactive Protein Total Protein Albumin Urine Color Yellow Urine Appearance Turbid H Urine pH 8.0 Ur Specific Wagner 1.015 Urine Protein 3+ H Urine Glucose (UA) Negative Urine Ketones Negative Ur Blood (Man) 2+ H Urine Nitrate Negative Urine Bilirubin Negative Urine Urobilinogen 0.2 Add Ur Microanalysis Reviewed Leukocyte Esterase Rfl 3+ H Urine RBC 6-10 H Urine WBC >100 H Urine WBC Clumps Present H Ur Squamous Epith Cells Few Ur Transition Epith Cell Ur Renal Epithelial Cell Victor M Biurate Crystals Calcium Carbonate Cryst Calcium Phosphate Cryst Calcium Oxalate Crystal Leucine Crystals Cystine Crystals Uric Acid Crystals Triple Phos Crystals Sulfonamide Crystals Cholesterol Crystals Talc Crystals Tyrosine Crystals Hippuric Acid Crystals Bilirubin Crystals Other Crystals Amorphous Sediment Other Sediment Urine Bacteria 4+ Urine Casts >20 Cellular Casts Epithelial Casts Fatty Casts Hyaline Casts Granular Casts Waxy Casts Broad Casts RBC Casts WBC Casts Urine Starch Urine Mucus Present Urine Trichomonas Urine Yeast (Budding) Ur Oval Fat Bodies Sperm Presence Influenza A (RT-PCR) Influenza B (RT-PCR) RSV (RT-PCR) SARS-CoV-2 RNA (RT-PCR) 07/28/25 07/28/25 07/28/25 03:14 03:41 06:48 WBC 22.5 H 22.7 H RBC 2.29 L 2.43 L Hgb 6.9 L* 7.2 L Hct 22.3 L 23.2 L MCV 97.4 95.5 MCH 30.1 29.6 MCHC 30.9 L 31.0 L RDW 15.0 H 15.0 H Plt Count 211 214 MPV 8.8 8.9 Immature Gran % (Auto) 0.7 H 0.7 H Neut % (Auto) 79.0 H 78.5 H Lymph % (Auto) 13.7 L 14.1 L Carter % (Auto) 6.3 6.4 Eos % (Auto) 0.1 0.1 Baso % (Auto) 0.2 0.2 Lymph # (Auto) 3.07 3.21 H Carter # (Auto) 1.4 H 1.5 H Eos # (Auto) 0.0 0.0 Baso # (Auto) 0.0 0.0 Abs Immat Gran (auto) 0.15 H 0.17 H Absolute Neuts (auto) 17.8 H 17.8 H Absolute Nucleated RBC 0.000 0.000 Band Neutrophils % Not Reportable Nucleated RBC % 0.0 0.0 Platelet Estimate Increased Hypochromasia 1+ Anisocytosis 1+ Ovalocytes 1+ Schistocytes None seen PT INR APTT Sodium 137 Potassium 4.5 Chloride 105 Carbon Dioxide 24 Anion Gap 8 BUN 67 H Creatinine 3.66 H Estim Creat Clear Calc 16 Estimated GFR 16 L Glucose 103 POC Capillary Glucose 96 Lactic Acid 1.5 Calcium 8.3 L Total Bilirubin AST ALT Alkaline Phosphatase C-Reactive Protein Total Protein Albumin Urine Color Urine Appearance Urine pH Ur Specific Wagner Urine Protein Urine Glucose (UA) Urine Ketones Ur Blood (Man) Urine Nitrate Urine Bilirubin Urine Urobilinogen Add Ur Microanalysis Leukocyte Esterase Rfl Urine RBC Urine WBC Urine WBC Clumps Ur Squamous Epith Cells Ur Transition Epith Cell Ur Renal Epithelial Cell [place] Biurate Crystals Calcium Carbonate Cryst Calcium Phosphate Cryst Calcium Oxalate Crystal Leucine Crystals Cystine Crystals Uric Acid Crystals Triple Phos Crystals Sulfonamide Crystals Cholesterol Crystals Talc Crystals Tyrosine Crystals Hippuric Acid Crystals Bilirubin Crystals Other Crystals Amorphous Sediment Other Sediment Urine Bacteria Urine Casts Cellular Casts Epithelial Casts Fatty Casts Hyaline Casts Granular Casts Waxy Casts Broad Casts RBC Casts WBC Casts Urine Starch Urine Mucus Urine Trichomonas Urine Yeast (Budding) Ur Oval Fat Bodies Sperm Presence Influenza A (RT-PCR) Influenza B (RT-PCR) RSV (RT-PCR) SARS-CoV-2 RNA (RT-PCR) 07/28/25 07/28/25 09:46 11:42 WBC RBC Hgb 7.0 L Hct 22.4 L MCV MCH MCHC RDW Plt Count MPV Immature Gran % (Auto) Neut % (Auto) Lymph % (Auto) Carter % (Auto) Eos % (Auto) Baso % (Auto) Lymph # (Auto) Carter # (Auto) Eos # (Auto) Baso # (Auto) Abs Immat Gran (auto) Absolute Neuts (auto) Absolute Nucleated RBC Band Neutrophils % Nucleated RBC % Platelet Estimate Hypochromasia Anisocytosis Ovalocytes Schistocytes PT INR APTT Sodium Potassium Chloride Carbon Dioxide Anion Gap BUN Creatinine Estim Creat Clear Calc Estimated GFR Glucose POC Capillary Glucose 79 Lactic Acid Calcium Total Bilirubin AST ALT Alkaline Phosphatase C-Reactive Protein Total Protein Albumin Urine Color Urine Appearance Urine pH Ur Specific Wagner Urine Protein Urine Glucose (UA) Urine Ketones Ur Blood (Man) Urine Nitrate Urine Bilirubin Urine Urobilinogen Add Ur Microanalysis Leukocyte Esterase Rfl Urine RBC Urine WBC Urine WBC Clumps Ur Squamous Epith Cells Ur Transition Epith Cell Ur Renal Epithelial Cell Victor M Biurate Crystals Calcium Carbonate Cryst Calcium Phosphate Cryst Calcium Oxalate Crystal Leucine Crystals Cystine Crystals Uric Acid Crystals Triple Phos Crystals Sulfonamide Crystals Cholesterol Crystals Talc Crystals Tyrosine Crystals Hippuric Acid Crystals Bilirubin Crystals Other Crystals Amorphous Sediment Other Sediment Urine Bacteria Urine Casts Cellular Casts Epithelial Casts Fatty Casts Hyaline Casts Granular Casts Waxy Casts Broad Casts RBC Casts WBC Casts Urine Starch Urine Mucus Urine Trichomonas Urine Yeast (Budding) Ur Oval Fat Bodies Sperm Presence Influenza A (RT-PCR) Influenza B (RT-PCR) RSV (RT-PCR) SARS-CoV-2 RNA (RT-PCR) Quality VTE Prophylaxis VTE prophylaxis: mechanical ordered and pharmacologic ordered
[2025-07-28] MEDS: DOXYCYCLINE IV 100 MG in SODIUM CHLORIDE 0.9% IV 100 ML IVPB ×2 (14:57→22:12)
[2025-07-28] MEDS: MIRTAZAPINE 15 MG TABLET FEED TUBE (21:05)
[2025-07-29] VITALS (16 sets, daily range): BP systolic 136–179; BP diastolic 67–78; PULSE 69–85; RESP 16–28; TEMP 36.4–37.3; O2SAT 95–100; BMI 21.6
[2025-07-29] MEDS: SODIUM CHLORIDE 0.9% IV 1,000 ML 100 ML IV CONT ×3 (03:25→21:29)
--- NOTE | 2025-07-29 04:02 | PC.NURSE ---
Pt refused to have labs drawn this morning.
[2025-07-29 07:26] LABS: Iron 106 ug/dL (49-181)
[2025-07-29 07:35] LABS: Percent Iron Saturation 61 % (20-50)
[2025-07-29 08:07] LABS: Ferritin 621.00 ng/mL (11.1-264)
[2025-07-29] MEDS: MEROPENEM 500 MG in SODIUM CHLORIDE 0.9% IV 100 ML 200 ML IVPB ×2 (08:19→21:28)
[2025-07-29] MEDS: ATORVASTATIN 40 MG TABLET FEED TUBE (08:20)
[2025-07-29] MEDS: DOXYCYCLINE IV 100 MG in SODIUM CHLORIDE 0.9% IV 100 ML IVPB ×2 (08:20→21:28)
[2025-07-29] MEDS: METOPROLOL TARTRATE 50 MG TAB FEED TUBE ×2 (08:20→21:29)
[2025-07-29] MEDS: FINASTERIDE 5 MG TABLET FEED TUBE (08:20)
[2025-07-29 08:33] LABS: Vitamin B12 703.0 pg/mL (239-931)
[2025-07-29 09:42] LABS: Hematocrit 23.0 % (42.0-52.0); Hemoglobin 7.1 g/dL (14.0-18.0); Immature Granulocyte Percent A 1.0 % (0-0.5); Lymphocytes Absolute Auto 2.03 K/mm3 (0.9-3.2); Mean Corpuscular HGB Conc 30.9 g/dl (32-36); Mean Corpuscular Hemoglobin 30.0 pg (26-34); Mean Corpuscular Volume 97.0 fl (80-100); Nucleated Red Blood Cells Absolute Auto 0.000 K/mm3 (0.0-0.012); Nucleated Red Blood Cells Perc 0.0 % (0.0-0.2); Platelet Count Result 240 k/mm3 (150-375); Red Blood Count 2.37 M/mm3 (4.6-6.20); White Blood Count 12.3 K/mm3 (4.5-10.0)
[2025-07-29 09:51] LABS: Alanine Aminotransferase 30 U/L (6-50); Albumin Level 2.5 g/dL (3.5-5.1); Alkaline Phosphatase 143 U/L (38-126); Anion Gap 10 mmol/L (4-12); Aspartate Amino Transferase 29 U/L (17-59); Bilirubin,Total 0.5 mg/dL (0.2-1.3); Blood Urea Nitrogen 76 mg/dL (9-20); Calcium 8.4 mg/dL (8.4-10.2); Carbon Dioxide 19 mmol/L (22-30); Chloride 110 mmol/L (98-107); Estimated CRCL calculation 16 ml/min; Estimated Glomerular Filt Rate 16; Glucose 169 mg/dL (65-110); Magnesium 1.8 mg/dL (1.6-2.3); Potassium 4.2 mmol/L (3.4-5.0); Sodium 139 mmol/L (137-145); Total Protein 5.5 g/dL (6.3-8.2)
--- NOTE | 2025-07-29 11:04 | PCSTNOTE ---
Please refer to the Modified Barium Swallow Evaluation in the EMR.
--- NOTE | 2025-07-29 12:34 | P.CDI_ITS ---
CDI Query Clarification Request 1) ER documented hypoxic respiratory failure but this diagnosis was not carried over by hospitalist. Please clarify if acute hypoxic respiratory failure should be added to the problem list in hospitalist progress note. 2) Please clarify the underlying possible/probable/suspected cause for the altered mental status in the progress notes: ? Encephalopathy (metabolic, COVID, hepatic, hypoxic, uremic, Wernicke, other) ? Neurologic condition (CVA/TIA/NPH/seizure) ? Electrolyte/metabolic imbalance/dehydration ? Infectious process (i.e. meningitis/encephalitis) ? Psychiatric condition ? Respiratory condition ? Dementia ? Other, please specify ? Unknown/unable to determine ER: Patient presents to the emergency department for lethargy, coarse cough. Patient is afebrile. Lung sounds are coarse. Blood pressure soft, but responsive to fluids. CBC with leukocytosis to 24.4. Hemoglobin appears stable. Kidney function appears stable. Chest x-ray is not showing any overt pneumonia, blood cultures obtained patient started on IV antibiotics for presumptive pneumonia. Urine also appears infected. CT brain without acute findings. Patient's oxygen saturation dipped into the upper 80s on room air, placed on 2 L nasal cannula. Will be admitted for further management. Clinical Impression: Acute hypoxic respiratory failure Pneumonia Qualifiers: Pneumonia type: aspiration pneumonia Aspiration pneumonia type: unspecified Laterality: bilateral Lung location: unspecified part of lung Qualified Code(s): J69.0 - Pneumonitis due to inhalation of food and vomit Hospitalist: Assessment and Plan (1) Altered mental status: Code(s): R41.82 - Altered mental status, unspecified Status: Resolved Assessment and Plan: resolved, patient alert and oriented Head CT with no acute process UA pending (2) Aspiration pneumonia: Qualifiers: Aspiration pneumonia type: unspecified Code(s): J69.0 - Pneumonitis due to inhalation of food and vomit Status: Acute Assessment and Plan: CXR showed no acute changes still Leukocytosis IV meropenem and Doxycycline Follow up culture and CT Chest Lactic acid ST recommends NPO, continue Tube feeds (3) Diabetes: Qualifiers: Diabetes mellitus type: type 2 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 Diabetes mellitus complication status: without complication Qualified Code(s): E11.9 - Type 2 diabetes mellitus without complications Code(s): E11.9 - Type 2 diabetes mellitus without complications Status: Chronic Assessment and Plan: NPO Accu-Cheks q.6 SSI Dietary consulted (4) Dysphagia: Qualifiers: Dysphagia type: esophageal phase Qualified Code(s): R13.19 - Other dysphagia Code(s): R13.10 - Dysphagia, unspecified Status: Acute Assessment and Plan: G-tube dependent (5) Stage 3a chronic kidney disease: Code(s): N18.31 - Chronic kidney disease, stage 3a Status: Chronic Assessment and Plan: Avoid nephrotoxic medications (6) BPH (benign prostatic hyperplasia): Code(s): N40.0 - Benign prostatic hyperplasia without lower urinary tract symptoms Status: Acute Assessment and Plan: Continue home med
--- NOTE | 2025-07-29 14:58 | PC.NURSE ---
This patient, Yvan Chau, was received from [facility] on 07/29/25 at 1458. Patient/family oriented to unit policies and routines
--- NOTE | 2025-07-29 15:21 | PC.NURSE ---
This patient, Yvan Chau, was transferred to [[id number] ] on 07/29/25 at 1521. Personal belongings sent with patient. Report given to [[email or web address] ]. Appropriate documentation sent with patient.
[2025-07-29] MEDS: ACETAMINOPHEN ELIXIR 325 MG/10.15 ML UDC 650 MG FEED TUBE (15:26)
--- NOTE | 2025-07-29 16:14 | P.PNIM_ITS ---
Progress Note: A&P Assessment and Plan (1) Altered mental status: Code(s): R41.82 - Altered mental status, unspecified Status: Resolved Assessment and Plan: resolved, patient alert and oriented Head CT with no acute process UA pending (2) Aspiration pneumonia: Qualifiers: Aspiration pneumonia type: unspecified Code(s): J69.0 - Pneumonitis due to inhalation of food and vomit Status: Acute Assessment and Plan: CXR showed no acute changes still Leukocytosis IV meropenem and Doxycycline Follow up culture and CT Chest Lactic acid ST recommends NPO, continue Tube feeds (3) Diabetes: Qualifiers: Diabetes mellitus type: type 2 Diabetes mellitus entry level web developer insulin use: without entry level web developer use Diabetes mellitus complication status: without complication Qualified Code(s): E11.9 - Type 2 diabetes mellitus without complications Code(s): E11.9 - Type 2 diabetes mellitus without complications Status: Chronic Assessment and Plan: NPO Accu-Cheks q.6 SSI Dietary consulted (4) Dysphagia: Qualifiers: Dysphagia type: esophageal phase Qualified Code(s): R13.19 - Other dysphagia Code(s): R13.10 - Dysphagia, unspecified Status: Acute Assessment and Plan: G-tube dependent (5) Stage 3a chronic kidney disease: Code(s): N18.31 - Chronic kidney disease, stage 3a Status: Chronic Assessment and Plan: Avoid nephrotoxic medications (6) BPH (benign prostatic hyperplasia): Code(s): N40.0 - Benign prostatic hyperplasia without lower urinary tract symptoms Status: Acute Assessment and Plan: Continue home med Plan Anemia Hb 7.1, Isat 61, B12 703, Folate 3.7 Retic count pending monitor H and H DVT prophylaxis on SCDsMemo on hold Subjective Date/time seen: 07/29/25 16:14 Interval history: Comfortable at bedside ST evaluated and recommended NPO Review of Systems Review of Systems: ROS unobtainable: Yes unobtainable due to mental status Exam Narrative: General: Chronically-ill, mild respiratory distress HEENT: normocephalic, atraumatic. Mucous membranes moist. EOMI, PERRLA, bilateral sclera anicteric, no conjunctival injection. Neck supple without JVD, lymphadenopathy, or bruit. Respiratory: Extremely coarse unable to cough up secretions Cardiovascular: Regular rate and rhythm, normal S1-S2 upon ascultation. No murmurs, rubs, or clicks. PMI is nondisplaced, capillary refill less than 3 second. Abdomen: Soft, round, no pulsatile masses, nondistended and nontender. No rebound, no guarding. Bowel sounds present to all four quadrants. No high pitch or tinkling sounds, resonant to percussion. Extremities: No cyanosis, clubbing, or edema present. Pulses are palpable 2/2. Active ROM to all four extremities. Neuro: Alert and orientated x 1. PERRLA. Cranial nerves 2-12 intact without focal deficit. Skin: Warm, dry, and intact, without rash, erythema, or lesion. Psych: pleasant, cooperative, normal speech, normal affect, no hallucinations, no dysarthia G-tube, chronic [place] Objective Data Vital Signs Vital Signs: Vital Signs - 24 hr 07/28/25 18:00 07/28/25 19:42 07/28/25 20:00 Temperature 97.6 F Pulse Rate 77 71 Respiratory Rate 24 H Blood Pressure 130/61 Pulse Oximetry 97 Oxygen Delivery Room Air Fraction of Inspired Oxygen 07/28/25 20:00 07/28/25 20:14 07/28/25 21:05 Temperature Pulse Rate 78 71 72 Respiratory Rate 20 Blood Pressure Pulse Oximetry 97 Oxygen Delivery Room Air Fraction of Inspired Oxygen 21 07/28/25 22:00 07/29/25 00:00 07/29/25 00:00 Temperature 97.8 F Pulse Rate 73 75 Respiratory Rate 17 Blood Pressure 164/78 H Pulse Oximetry 100 Oxygen Delivery Room Air Fraction of Inspired Oxygen 07/29/25 00:00 07/29/25 02:00 07/29/25 04:00 Temperature 97.5 F L Pulse Rate 76 78 85 Respiratory Rate 18 Blood Pressure 172/74 H Pulse Oximetry 96 Oxygen Delivery Fraction of Inspired Oxygen 07/29/25 04:00 07/29/25 04:00 07/29/25 06:00 Temperature Pulse Rate 80 80 Respiratory Rate Blood Pressure Pulse Oximetry Oxygen Delivery Room Air Fraction of Inspired Oxygen 07/29/25 07:55 07/29/25 08:00 07/29/25 08:00 Temperature 98.3 F Pulse Rate 85 85 Respiratory Rate 24 H Blood Pressure 179/77 H Pulse Oximetry 95 Oxygen Delivery Room Air Fraction of Inspired Oxygen 07/29/25 08:20 07/29/25 10:00 07/29/25 11:42 Temperature Pulse Rate 83 76 Respiratory Rate Blood Pressure 137/68 Pulse Oximetry Oxygen Delivery Fraction of Inspired Oxygen 07/29/25 11:52 07/29/25 12:00 07/29/25 16:00 Temperature 98.3 F Pulse Rate 75 77 77 Respiratory Rate 28 H Blood Pressure 156/69 H Pulse Oximetry 97 Oxygen Delivery Fraction of Inspired Oxygen Intake/Output Intake/Output: Intake & Output 07/26/25 07/27/25 07/28/25 07/29/25 23:59 23:59 23:59 23:59 Intake Total 1100 3268.4 1325 Output Total 120 1100 Balance 1100 3148.4 225 Meds/Results Medications: Active Medications Generic Name Dose Route Start Last Admin Trade Name Freq PRN Reason Stop Dose Admin Acetaminophen 650 mg 07/29/25 15:14 07/29/25 15:26 Acetaminophen Elixir 325 Mg/10.15 Ml Udc FEED TUBE 650 mg Q4H PRN Administration Mild Pain (1-3) or Fever Apixaban 5 mg 07/28/25 09:00 07/28/25 10:17 Apixaban 5 Mg Tablet FEED TUBE Not Given On Hold: 07/28/25 12:44 BID BASSEM Atorvastatin Calcium 40 mg 07/28/25 09:00 07/29/25 08:20 Atorvastatin 40 Mg Tablet FEED TUBE 40 mg DAILY BASSEM Administration Dextrose 12.5 gm 07/27/25 19:36 Dextrose 50% 25 Gm/50 Ml Syringe IV PUSH PRN PRN Hypoglycemia Protocol Finasteride 5 mg 07/28/25 09:00 07/29/25 08:20 Finasteride 5 Mg Tablet FEED TUBE 5 mg QAM BASSEM Administration Glucagon 1 mg 07/27/25 19:36 Glucagon For Inj 1 Mg Vial IM PRN PRN Hypoglycemia Protocol Glucose 15 gm 07/27/25 19:36 Glucose Oral Gel 15 Gm Of Glucse In 37.5 Gm Tube PO PRN PRN Hypoglycemia Protocol Guaifenesin/Dextromethorphan 10 ml 07/27/25 23:00 07/29/25 14:21 Guaifenesin/Dextromethorphan 10 Ml Udc FEED TUBE Not Given Q4HR BASSEM Meropenem 500 mg/ Sodium 100 mls @ 200 mls/hr 07/28/25 08:00 07/29/25 08:19 Chloride IVPB 200 mls/hr Q12H BASSEM Administration Sodium Chloride 1,000 mls @ 100 mls/hr 07/27/25 19:40 07/29/25 15:25 Normal Saline Iv IV CONT 100 mls/hr .Q10H BASSEM Administration Dextrose 1,000 mls @ 100 mls/hr 07/27/25 19:36 Dextrose 5% 1,000 Ml IVPB PRN PRN Hypoglycemia Protocol Doxycycline Hyclate 100 mg/ 100 mls @ 100 mls/hr 07/28/25 12:45 07/29/25 08:20 Sodium Chloride IVPB 100 mls/hr Q12HR BASSEM Administration Insulin Aspart 2 - 5 units 07/28/25 00:00 07/29/25 11:35 Insulin Aspart (*Bkc) 100 Units/Ml SUB-Q Not Given Q6HR BASSEM Protocol Metoprolol Tartrate 50 mg 07/28/25 09:00 07/29/25 08:20 Metoprolol Tartrate 50 Mg Tab FEED TUBE 50 mg Q12HR BASSEM Administration Mirtazapine 15 mg 07/28/25 21:00 07/28/25 21:05 Mirtazapine 15 Mg Tablet FEED TUBE 15 mg HS BASSEM Administration Radiology Results: ITS Impressions Chest X-Ray 07/27/25 15:30 IMPRESSION: 1. No acute cardiopulmonary disease. Head CT 07/27/25 15:31 IMPRESSION: 1. 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 No acute intracranial process. 2. Stable appearance of age-related changes in the brain including moderate diffuse volume loss and mild to moderate scattered white matter hypoattenuation consistent with chronic small vessel ischemic disease. Chest CT 07/28/25 14:15 IMPRESSION: Bilateral bronchopneumonia. Sequelae of previous granulomatous disease. Probable reactive mediastinal lymphadenopathy. Follow-up is recommended to assess improvement. Modified Barium Swallow 07/29/25 10:47 IMPRESSION: Pharyngeal dysphagia with laryngeal penetration and silent aspiration. Please correlate with speech pathologist findings and specific feeding recommendations. Labs Labs: Laboratory Results - last 24 hr 07/28/25 07/29/25 07/29/25 18:06 00:05 07:00 WBC 12.3 H RBC 2.37 L Hgb 7.1 L Hct 23.0 L MCV 97.0 MCH 30.0 MCHC 30.9 L RDW 15.4 H Plt Count 240 MPV 9.2 Immature Gran % (Auto) 1.0 H Neut % (Auto) 74.3 H Lymph % (Auto) 16.5 L [place] % (Auto) 6.2 Eos % (Auto) 1.8 Baso % (Auto) 0.2 Lymph # (Auto) 2.03 [place] # (Auto) 0.8 H Eos # (Auto) 0.2 Baso # (Auto) 0.0 Abs Immat Gran (auto) 0.12 H Absolute Neuts (auto) 9.2 H Absolute Nucleated RBC 0.000 Nucleated RBC % 0.0 Sodium 139 Potassium 4.2 Chloride 110 H Carbon Dioxide 19 L Anion Gap 10 BUN 76 H Creatinine 3.74 H Estim Creat Clear Calc 16 Estimated GFR 16 L Glucose 169 H POC Capillary Glucose 84 129 H Calcium 8.4 Magnesium 1.8 Iron 106 TIBC 175 L % Saturation 61 H Ferritin 621.00 H Total Bilirubin 0.5 AST 29 ALT 30 Alkaline Phosphatase 143 H Total Protein 5.5 L Albumin 2.5 L Vitamin B12 703.0 Folate 3.7 07/29/25 11:26 WBC RBC Hgb Hct MCV MCH MCHC RDW Plt Count MPV Immature Gran % (Auto) Neut % (Auto) Lymph % (Auto) [place] % (Auto) Eos % (Auto) Baso % (Auto) Lymph # (Auto) [place] # (Auto) Eos # (Auto) Baso # (Auto) Abs Immat Gran (auto) Absolute Neuts (auto) Absolute Nucleated RBC Nucleated RBC % Sodium Potassium Chloride Carbon Dioxide Anion Gap BUN Creatinine Estim Creat Clear Calc Estimated GFR Glucose POC Capillary Glucose 128 H Calcium Magnesium Iron TIBC % Saturation Ferritin Total Bilirubin AST ALT Alkaline Phosphatase Total Protein Albumin Vitamin B12 Folate Quality VTE Prophylaxis VTE prophylaxis: mechanical ordered and pharmacologic ordered
[2025-07-29] MEDS: MIRTAZAPINE 15 MG TABLET FEED TUBE (21:29)
[2025-07-30] VITALS (11 sets, daily range): BP systolic 153–189; BP diastolic 70–94; PULSE 75–85; RESP 16–20; TEMP 36.4–37.2; O2SAT 96–100
[2025-07-30 06:00] LABS: Immature Reticulocyte Fraction 23.2 % (3.0-15.9); Reticulocyte Hemoglobin Conten 29.7 pg (28.2-36.6); Reticulocytes Absolute 0.05 10^6/uL (0.02-0.10)
[2025-07-30 06:03] LABS: Hematocrit 26.5 % (42.0-52.0); Hemoglobin 8.0 g/dL (14.0-18.0); Immature Granulocyte Percent A 2.3 % (0-0.5); Lymphocytes Absolute Auto 1.36 K/mm3 (0.9-3.2); Mean Corpuscular HGB Conc 30.2 g/dl (32-36); Mean Corpuscular Hemoglobin 30.2 pg (26-34); Mean Corpuscular Volume 100.0 fl (80-100); Nucleated Red Blood Cells Absolute Auto 0.000 K/mm3 (0.0-0.012); Nucleated Red Blood Cells Perc 0.0 % (0.0-0.2); Platelet Count Result 245 k/mm3 (150-375); Red Blood Count 2.65 M/mm3 (4.6-6.20); White Blood Count 9.8 K/mm3 (4.5-10.0)
[2025-07-30 06:28] LABS: Alanine Aminotransferase 37 U/L (6-50); Albumin Level 2.8 g/dL (3.5-5.1); Alkaline Phosphatase 166 U/L (38-126); Anion Gap 10 mmol/L (4-12); Aspartate Amino Transferase 46 U/L (17-59); Bilirubin,Total 0.6 mg/dL (0.2-1.3); Blood Urea Nitrogen 79 mg/dL (9-20); Calcium 8.4 mg/dL (8.4-10.2); Carbon Dioxide 22 mmol/L (22-30); Chloride 111 mmol/L (98-107); Estimated CRCL calculation 17 ml/min; Estimated Glomerular Filt Rate 17; Glucose 142 mg/dL (65-110); Magnesium 1.6 mg/dL (1.6-2.3); Potassium 4.6 mmol/L (3.4-5.0); Sodium 143 mmol/L (137-145); Total Protein 6.4 g/dL (6.3-8.2)
[2025-07-30] MEDS: MEROPENEM 500 MG in SODIUM CHLORIDE 0.9% IV 100 ML IVPB (07:20)
[2025-07-30] MEDS: FINASTERIDE 5 MG TABLET FEED TUBE (07:22)
[2025-07-30] MEDS: METOPROLOL TARTRATE 50 MG TAB FEED TUBE ×2 (07:22→21:42)
[2025-07-30] MEDS: ATORVASTATIN 40 MG TABLET FEED TUBE (07:22)
[2025-07-30] MEDS: DOXYCYCLINE IV 100 MG in SODIUM CHLORIDE 0.9% IV 100 ML IVPB (09:07)
--- NOTE | 2025-07-30 10:04 | PCPTNOTE ---
Attempted PT evaluation. Pt refused and repeatedly stated not today. Pt asked why not pt just shakes his head no. Attempted to encourage pt to sit up in chair, but pt continue to refuse. Nurse aware will follow.
[2025-07-30 10:08] LABS: IFOB Positive Control Positive; Immunochemical Fecal Occult Bl Negative (N)
--- NOTE | 2025-07-30 12:32 | PCNFU ---
Nutrition Follow-Up Complete: Inadequate po intake related to dysphagia as evidenced by speech evaluation with recommendations for NPO Goal:Meet estimated needs via tube feeding Pt meeting goal, continue with same goal Pt current nutrition is Jevity 1.5 @ 60ml/hr, goal rate = 1980kcals, 70g protein. Nutrition recommendation: consider switching to bolus feeds prior to discharge Last recorded weight is 68.3 kg. Bowel Motility: +BM 07/29 Labs Reviewed: Hct:26.5, alb:2.8, Na:142, GFR:17, BUN:79, Cr:3.6 Meds Noted: eliquis, novolog, remeron Skin: WNL Additional Notes: Pt continues on same tube feeding. Tolerating well. Recommend to increase flushes to 120ml q 4 hrs to better meet free water needs, this provides 1556ml free water. Recommend to consider bolus feeds prior to discharge. Bolus rec is 325ml QID of Jevity 1.5 Monitor tube feeding, tolerance, wt, labs. Follow up every Tuesday and Tuesday
--- NOTE | 2025-07-30 12:52 | PCNFU ---
Nutrition Follow-Up Complete: Inadequate po intake related to dysphagia as evidenced by speech evaluation with recommendations for NPO Goal:Meet estimated needs via tube feeding Pt meeting goal, continue with same goal Pt current nutrition is Jevity 1.5 @ 60ml/hr with 60ml flushes q 4 hrs to provide 1980kcals, 84g protein, 1336ml free water. Nutrition recommendation: Increase flushes to 120ml q 4 hrs to better meet fluid needs (1723ml total) Last recorded weight is 68.3 kg. Bowel Motility: +BM 07/29 Labs Reviewed:Hct:26.5, Alb:2.8, NA:142, GFR:17, BUN:79, Cr:3.6 Meds Noted: remeron, eliquis, novolog Skin: WNL Additional Notes: Pt continues on same tube feeding, tolerating well. Recommend to increase flushes to 120ml q 4 hrs to better meet fluid needs. Recommend also to consider bolus feeds prior to discharge. Bolus 325 QID of Jevity 1.5, 120ml free water flush q 4 hrs. Monitor tube feeding, tolerance, wt, labs. Follow up every Tuesday and Tuesday
--- NOTE | 2025-07-30 16:38 | PM.IMPN ---
Progress Note: A&P Assessment and Plan (1) Mental status change resolved: Code(s): Z86.59 - Personal history of other mental and behavioral disorders Status: Acute (2) Acute kidney injury: Code(s): N17.9 - Acute kidney failure, unspecified Status: Acute (3) Acute UTI: Code(s): N39.0 - Urinary tract infection, site not specified Status: Acute (4) Pneumonia: Qualifiers: Laterality: left Lung location: lower lobe of lung Pneumonia type: due to unspecified organism Qualified Code(s): J18.9 - Pneumonia, unspecified organism Code(s): J18.9 - Pneumonia, unspecified organism Status: Acute Plan Meropenem discontinued. Continue Augmentin, doxycycline, Bactrim. Renal dose. Continue tube feeds, increase free water flushes. Normal saline at 100 cc/hour. Leukocytosis resolved. Follow-up blood cultures. Urine culture pending, Gram stain Gram-negative bacilli. Accu-Cheks q.6 hours. Sliding scale. Hypoglycemia protocol. Anemia stable. Resume PRESS M[employer] Eliquis on 07/31/2025 if continues to be stable. Patient wishes to be DNR. Subjective Date/time seen: 07/30/25 16:38 Interval history: No major acute overnight events. Patient is not provide good history, not talkative. Does not elicit complaints, reports no pain, no shortness of breath. Review of Systems Review of Systems: All systems reviewed & are unremarkable except as noted in HPI and below (Subjective) Exam Const: General: comfortable and no acute distress Other: A&O x3 HENMT: Mouth: Yes moist mucous membranes Eyes: Pupils: Equal, round and reactive pupils present Neck: Neck: supple Resp: Effort & Inspection: normal respiratory effort Other: Coarse breath Cardio: Rate: regular rate Rhythm: regular rhythm GI: GI Palp: Yes Soft to palpation Extrem: General: no edema Objective Data Vital Signs Vital Signs: Vital Signs - 24 hr 07/29/25 21:00 07/29/25 21:00 07/29/25 21:16 Temperature 99.2 F Pulse Rate 69 76 Respiratory Rate 18 Blood Pressure 166/74 H Pulse Oximetry 98 Oxygen Delivery Room Air Fraction of Inspired Oxygen 21 07/29/25 21:29 07/29/25 23:36 07/30/25 00:00 Temperature 98.9 F Pulse Rate 78 69 75 Respiratory Rate 16 Blood Pressure 169/78 H Pulse Oximetry 97 Oxygen Delivery Fraction of Inspired Oxygen 07/30/25 04:00 07/30/25 04:42 07/30/25 07:22 Temperature 98.9 F Pulse Rate 82 82 80 Respiratory Rate 18 Blood Pressure 172/94 H Pulse Oximetry 100 Oxygen Delivery Fraction of Inspired Oxygen 07/30/25 08:00 07/30/25 08:00 07/30/25 08:00 Temperature 98.7 F Pulse Rate 78 76 Respiratory Rate 16 Blood Pressure 189/85 H Pulse Oximetry 100 99 Oxygen Delivery Room Air Fraction of Inspired Oxygen 07/30/25 09:39 07/30/25 12:00 07/30/25 12:00 Temperature 98.8 F Pulse Rate 83 81 Respiratory Rate 16 Blood Pressure 153/82 H 159/79 H Pulse Oximetry 96 Oxygen Delivery Fraction of Inspired Oxygen Intake/Output Intake/Output: Intake & Output 07/27/25 07/28/25 07/29/25 07/30/25 23:59 23:59 23:59 23:59 Intake Total 1100 3268.4 3326.7 550 Output Total 120 1700 1500 Balance 1100 3148.4 1626.7 -950 Meds/Results Medications: Active Medications Generic Name Dose Route Start Last Admin Trade Name Freq PRN Reason Stop Dose Admin Acetaminophen 650 mg 07/29/25 15:14 07/29/25 15:26 Acetaminophen Elixir 325 Mg/10.15 Ml Udc FEED TUBE 650 mg Q4H PRN Administration Mild Pain (1-3) or Fever Amoxicillin/Clavulanate Potassium 500 mg 07/30/25 21:00 Amoxicillin/Clavulanate K Susp 500 Mg/6.25 Ml Ud FEED TUBE 08/03/25 09:01 Q12HR BASSEM Apixaban 5 mg 07/28/25 09:00 07/28/25 10:17 Apixaban 5 Mg Tablet FEED TUBE Not Given On Hold: 07/28/25 12:44 BID BASSEM Atorvastatin Calcium 40 mg 07/28/25 09:00 07/30/25 07:22 Atorvastatin 40 Mg Tablet FEED TUBE 40 mg DAILY BASSEM Administration Dextrose 12.5 gm 07/27/25 19:36 Dextrose 50% 25 Gm/50 Ml Syringe IV PUSH PRN PRN Hypoglycemia Protocol Doxycycline Hyclate 100 mg 07/30/25 21:00 Doxycycline Hyclate 100 Mg Tablet FEED TUBE 08/01/25 21:01 Q12HR BASSEM Finasteride 5 mg 07/28/25 09:00 07/30/25 07:22 Finasteride 5 Mg Tablet FEED TUBE 5 mg QAM BASSEM Administration Glucagon 1 mg 07/27/25 19:36 Glucagon For Inj 1 Mg Vial IM PRN PRN Hypoglycemia Protocol Glucose 15 gm 07/27/25 19:36 Glucose Oral Gel 15 Gm Of Glucse In 37.5 Gm Tube PO PRN PRN Hypoglycemia Protocol Guaifenesin/Dextromethorphan 10 ml 07/27/25 23:00 07/30/25 13:46 Guaifenesin/Dextromethorphan 10 Ml Udc FEED TUBE 10 ml Q4HR BASSEM Administration Sodium Chloride 1,000 mls @ 100 mls/hr 07/27/25 19:40 07/29/25 21:29 Normal Saline Iv IV CONT 100 mls/hr .Q10H BASSEM Administration Dextrose 1,000 mls @ 100 mls/hr 07/27/25 19:36 Dextrose 5% 1,000 Ml IVPB PRN PRN Hypoglycemia Protocol Insulin Aspart 2 - 5 units 07/28/25 00:00 07/30/25 13:38 Insulin Aspart (*Bkc) 100 Units/Ml SUB-Q Not Given Q6HR BASSEM Protocol Metoprolol Tartrate 50 mg 07/28/25 09:00 07/30/25 07:22 Metoprolol Tartrate 50 Mg Tab FEED TUBE 50 mg Q12HR BASSEM Administration Mirtazapine 15 mg 07/28/25 21:00 07/29/25 21:29 Mirtazapine 15 Mg Tablet FEED TUBE 15 mg HS BASSEM Administration Trimethoprim/Sulfamethoxazole 1 tab 07/30/25 21:00 Sulfamethoxazole/Trimethoprim 400/80 Mg Tablet FEED TUBE 08/03/25 09:01 Q12HR [facility] Radiology Results: ITS Impressions Chest X-Ray 07/27/25 15:30 IMPRESSION: 1. No acute cardiopulmonary disease. Head CT 07/27/25 15:31 IMPRESSION: 1. 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 No acute intracranial process. 2. Stable appearance of age-related changes in the brain including moderate diffuse volume loss and mild to moderate scattered white matter hypoattenuation consistent with chronic small vessel ischemic disease. Chest CT 07/28/25 14:15 IMPRESSION: Bilateral bronchopneumonia. Sequelae of previous granulomatous disease. Probable reactive mediastinal lymphadenopathy. Follow-up is recommended to assess improvement. Modified Barium Swallow 07/29/25 10:47 IMPRESSION: Pharyngeal dysphagia with laryngeal penetration and silent aspiration. Please correlate with speech pathologist findings and specific feeding recommendations. Labs Labs: Laboratory Results - last 24 hr 07/29/25 07/29/25 07/30/25 16:56 23:39 05:35 WBC 9.8 RBC 2.65 L Hgb 8.0 L Hct 26.5 L MCV 100.0 MCH 30.2 MCHC 30.2 L RDW 15.3 H Plt Count 245 MPV 9.1 Immature Gran % (Auto) 2.3 H Neut % (Auto) 74.4 H Lymph % (Auto) 13.9 L [place] % (Auto) 6.0 Eos % (Auto) 3.1 Baso % (Auto) 0.3 Lymph # (Auto) 1.36 [place] # (Auto) 0.6 Eos # (Auto) 0.3 Baso # (Auto) 0.0 Abs Immat Gran (auto) 0.22 H Absolute Neuts (auto) 7.3 H Absolute Nucleated RBC 0.000 Nucleated RBC % 0.0 Absolute Retic 0.05 Percent Retic 1.88 Immature Retic Fraction 23.2 H Retic Hgb Content 29.7 Sodium 143 Potassium 4.6 Chloride 111 H Carbon Dioxide 22 Anion Gap 10 BUN 79 H Creatinine 3.58 H Estim Creat Clear Calc 17 Estimated GFR 17 L Glucose 142 H POC Capillary Glucose 163 H 134 H Calcium 8.4 Magnesium 1.6 Total Bilirubin 0.6 AST 46 ALT 37 Alkaline Phosphatase 166 H Total Protein 6.4 Albumin 2.8 L Stl Occult Blood (IFOB) 07/30/25 09:46 WBC RBC Hgb Hct MCV MCH MCHC RDW Plt Count MPV Immature Gran % (Auto) Neut % (Auto) Lymph % (Auto) [place] % (Auto) Eos % (Auto) Baso % (Auto) Lymph # (Auto) [place] # (Auto) Eos # (Auto) Baso # (Auto) Abs Immat Gran (auto) Absolute Neuts (auto) Absolute Nucleated RBC Nucleated RBC % Absolute Retic Percent Retic Immature Retic Fraction Retic Hgb Content Sodium Potassium Chloride Carbon Dioxide Anion Gap BUN Creatinine Estim Creat Clear Calc Estimated GFR Glucose POC Capillary Glucose Calcium Magnesium Total Bilirubin AST ALT Alkaline Phosphatase Total Protein Albumin Stl Occult Blood (IFOB) Negative
[2025-07-30] MEDS: SODIUM CHLORIDE 0.9% IV 1,000 ML 100 ML IV CONT (16:46)
[2025-07-30] MEDS: DOXYCYCLINE HYCLATE 100 MG TABLET FEED TUBE (21:42)
[2025-07-30] MEDS: MIRTAZAPINE 15 MG TABLET FEED TUBE (21:42)
[2025-07-30] MEDS: AMOXICILLIN/CLAVULANATE K SUSP 500 MG/6.25 ML UD FEED TUBE (21:44)
[2025-07-31] VITALS (14 sets, daily range): BP systolic 117–151; BP diastolic 59–75; PULSE 67–83; RESP 16–18; TEMP 36.6–37.2; O2SAT 95–99; BMI 10.0
[2025-07-31] MEDS: SODIUM CHLORIDE 0.9% IV 1,000 ML 100 ML IV CONT (01:24)
[2025-07-31 06:39] LABS: Hematocrit 21.1 % (42.0-52.0); Immature Granulocyte Percent A 5.8 % (0-0.5); Lymphocytes Absolute Auto 1.44 K/mm3 (0.9-3.2); Mean Corpuscular HGB Conc 29.9 g/dl (32-36); Mean Corpuscular Hemoglobin 29.6 pg (26-34); Mean Corpuscular Volume 99.1 fl (80-100); Nucleated Red Blood Cells Absolute Auto 0.030 K/mm3 (0.0-0.012); Nucleated Red Blood Cells Perc 0.4 % (0.0-0.2); Platelet Count Result 186 k/mm3 (150-375); Red Blood Count 2.13 M/mm3 (4.6-6.20); White Blood Count 8.5 K/mm3 (4.5-10.0)
[2025-07-31 06:44] LABS: Hemoglobin 6.3 g/dL (14.0-18.0)
[2025-07-31 06:50] LABS: Alanine Aminotransferase 45 U/L (6-50); Albumin Level 2.3 g/dL (3.5-5.1); Alkaline Phosphatase 148 U/L (38-126); Anion Gap 9 mmol/L (4-12); Aspartate Amino Transferase 53 U/L (17-59); Bilirubin,Total 0.3 mg/dL (0.2-1.3); Blood Urea Nitrogen 77 mg/dL (9-20); Calcium 7.7 mg/dL (8.4-10.2); Carbon Dioxide 21 mmol/L (22-30); Chloride 112 mmol/L (98-107); Estimated CRCL calculation 19 ml/min; Estimated Glomerular Filt Rate 18; Glucose 129 mg/dL (65-110); Magnesium 1.4 mg/dL (1.6-2.3); Potassium 4.2 mmol/L (3.4-5.0); Sodium 142 mmol/L (137-145); Total Protein 5.3 g/dL (6.3-8.2)
--- NOTE | 2025-07-31 06:53 | PM.EVENT ---
Event Note Event Note Event Note: I received a call from nursing staff regarding critically low hemoglobin level of 6.3. Patient is on IV fluids AND at goal on tube feeds getting 120 mL free water flushes Q4H. I instructed to stop IV fluids and ordered one unit PRBC transfusion.
[2025-07-31 07:02] LABS: Hypochromasia 1+
[2025-07-31 07:03] LABS: Anisocytosis 1+; Burr Cells Occasional; Schistocytes None Seen; Target Cells 1+
[2025-07-31] MEDS: DOXYCYCLINE HYCLATE 100 MG TABLET FEED TUBE ×2 (09:46→21:36)
[2025-07-31] MEDS: ATORVASTATIN 40 MG TABLET FEED TUBE (09:46)
[2025-07-31] MEDS: FINASTERIDE 5 MG TABLET FEED TUBE (09:46)
[2025-07-31] MEDS: METOPROLOL TARTRATE 50 MG TAB FEED TUBE ×2 (09:47→21:37)
[2025-07-31] MEDS: AMOXICILLIN/CLAVULANATE K SUSP 500 MG/6.25 ML UD FEED TUBE ×2 (09:47→21:36)
--- NOTE | 2025-07-31 10:51 | PCPTNOTE ---
Patient is refusing all therapy at this time 1040.
[2025-07-31] MEDS: ACETAMINOPHEN ELIXIR 325 MG/10.15 ML UDC 650 MG FEED TUBE (16:53)
--- NOTE | 2025-07-31 18:14 | PM.IMPN ---
Progress Note: A&P Assessment and Plan (1) Mental status change resolved: Code(s): Z86.59 - Personal history of other mental and behavioral disorders Status: Acute (2) Acute kidney injury: Code(s): N17.9 - Acute kidney failure, unspecified Status: Acute (3) Acute UTI: Code(s): N39.0 - Urinary tract infection, site not specified Status: Acute (4) Pneumonia: Qualifiers: Laterality: left Lung location: lower lobe of lung Pneumonia type: due to unspecified organism Qualified Code(s): J18.9 - Pneumonia, unspecified organism Code(s): J18.9 - Pneumonia, unspecified organism Status: Acute Plan Meropenem discontinued. Continue Augmentin, doxycycline, Bactrim. Renal dose. Continue tube feeds with free water flushes. Leukocytosis resolved. Follow-up blood cultures. Urine culture pending, Gram stain Gram-negative bacilli. Accu-Cheks q.6 hours. Sliding scale. Hypoglycemia protocol. Acute on chronic anemia. Hemoglobin 6.7 on 07/31/2025. Patient has refused blood transfusion. He says he wants let things go naturally. Hospice consultation placed. Continue to hold Eliquis. Patient wishes to be DNR. Saline lock IV. Hospice consultation. Subjective Date/time seen: 07/31/25 18:14 Interval history: Patient is denying blood transfusion. He has no complaints and says he wants to let things go naturally. Talked him about this multiple times as did the nurse. He did not have any questions. Review of Systems Review of Systems: All systems reviewed & are unremarkable except as noted in HPI and below (Subjective) Exam Const: General: comfortable and no acute distress HENMT: Mouth: Yes moist mucous membranes Eyes: Pupils: Equal, round and reactive pupils present Neck: Neck: supple Resp: Effort & Inspection: normal respiratory effort Auscultation: clear to auscultation bilaterally Cardio: Rate: regular rate Rhythm: regular rhythm GI: GI Palp: Yes Soft to palpation Extrem: General: no edema Objective Data Vital Signs Vital Signs: Vital Signs - 24 hr 07/30/25 19:36 07/30/25 20:21 07/30/25 21:42 Temperature 97.6 F Pulse Rate 85 82 78 Respiratory Rate 20 18 Blood Pressure 163/70 H Pulse Oximetry 98 97 Oxygen Delivery Room Air Fraction of Inspired Oxygen 21 09/09/25 21:42 07/30/25 21:42 07/31/25 00:00 Temperature Pulse Rate 78 79 Respiratory Rate Blood Pressure Pulse Oximetry Oxygen Delivery Room Air Fraction of Inspired Oxygen 07/31/25 00:46 07/31/25 04:00 07/31/25 05:25 Temperature 98.2 F 98.7 F Pulse Rate 83 82 79 Respiratory Rate 16 16 Blood Pressure 151/65 H 130/64 Pulse Oximetry 98 95 Oxygen Delivery Fraction of Inspired Oxygen 07/31/25 08:00 07/31/25 08:00 07/31/25 08:00 Temperature 98.3 F Pulse Rate 77 82 Respiratory Rate 18 Blood Pressure 146/69 H Pulse Oximetry 99 Oxygen Delivery Room Air Fraction of Inspired Oxygen 07/31/25 09:05 07/31/25 09:47 07/31/25 12:00 Temperature 97.8 F Pulse Rate 80 67 Respiratory Rate 18 Blood Pressure 131/75 Pulse Oximetry 95 98 Oxygen Delivery Room Air Fraction of Inspired Oxygen 07/31/25 12:00 07/31/25 16:00 Temperature Pulse Rate 68 71 Respiratory Rate Blood Pressure Pulse Oximetry Oxygen Delivery Fraction of Inspired Oxygen Intake/Output Intake/Output: Intake & Output 07/28/25 07/29/25 07/30/25 07/31/25 23:59 23:59 23:59 23:59 Intake Total 3268.4 3326.7 1550 1942.3 Output Total 120 1700 2550 1550 Balance 3148.4 1626.7 -1000 392.3 Meds/Results Medications: Active Medications Generic Name Dose Route Start Last Admin Trade Name Freq PRN Reason Stop Dose Admin Acetaminophen 650 mg 07/29/25 15:14 07/31/25 16:53 Acetaminophen Elixir 325 Mg/10.15 Ml Udc FEED TUBE 650 mg Q4H PRN Administration Mild Pain (1-3) or Fever Amoxicillin/Clavulanate Potassium 500 mg 07/30/25 21:00 07/31/25 09:47 Amoxicillin/Clavulanate K Susp 500 Mg/6.25 Ml Ud FEED TUBE 08/03/25 09:01 500 mg Q12HR BASSEM Administration Apixaban 5 mg 07/28/25 09:00 07/28/25 10:17 Apixaban 5 Mg Tablet FEED TUBE Not Given On Hold: 07/28/25 12:44 BID BASSEM Atorvastatin Calcium 40 mg 07/28/25 09:00 07/31/25 09:46 Atorvastatin 40 Mg Tablet FEED TUBE 40 mg DAILY BASSEM Administration Dextrose 12.5 gm 07/27/25 19:36 Dextrose 50% 25 Gm/50 Ml Syringe IV PUSH PRN PRN Hypoglycemia Protocol Doxycycline Hyclate 100 mg 07/30/25 21:00 07/31/25 09:46 Doxycycline Hyclate 100 Mg Tablet FEED TUBE 08/01/25 21:01 100 mg Q12HR BASSEM Administration Finasteride 5 mg 07/28/25 09:00 07/31/25 09:46 Finasteride 5 Mg Tablet FEED TUBE 5 mg QAM BASSEM Administration Glucagon 1 mg 07/27/25 19:36 Glucagon For Inj 1 Mg Vial IM PRN PRN Hypoglycemia Protocol Glucose 15 gm 07/27/25 19:36 Glucose Oral Gel 15 Gm Of Glucse In 37.5 Gm Tube PO PRN PRN Hypoglycemia Protocol Guaifenesin/Dextromethorphan 10 ml 07/27/25 23:00 07/31/25 16:49 Guaifenesin/Dextromethorphan 10 Ml Udc FEED TUBE 10 ml Q4HR BASSEM Administration Dextrose 1,000 mls @ 100 mls/hr 07/27/25 19:36 Dextrose 5% 1,000 Ml IVPB PRN PRN Hypoglycemia Protocol Magnesium Sulfate 2 gm in 50 mls @ 25 mls/hr 07/31/25 18:12 Magnesium Sulf 2 Gm/Water 50ml IVPB 07/31/25 20:11 ONCE ONE Insulin Aspart 2 - 5 units 07/28/25 00:00 07/31/25 14:30 Insulin Aspart (*Bkc) 100 Units/Ml SUB-Q Not Given Q6HR BASSEM Protocol Metoprolol Tartrate 50 mg 07/28/25 09:00 07/31/25 09:47 Metoprolol Tartrate 50 Mg Tab FEED TUBE 50 mg Q12HR BASSEM Administration Mirtazapine 15 mg 07/28/25 21:00 07/30/25 21:42 Mirtazapine 15 Mg Tablet FEED TUBE 15 mg HS BASSEM Administration Trimethoprim/Sulfamethoxazole 1 tab 07/30/25 21:00 07/31/25 09:46 Sulfamethoxazole/Trimethoprim 400/80 Mg Tablet FEED TUBE 08/03/25 09:01 1 tab Q12HR BASSEM Administration Radiology Results: ITS Impressions Chest X-Ray 07/27/25 15:30 IMPRESSION: 1. No acute cardiopulmonary disease. Head CT 07/27/25 15:31 IMPRESSION: 1. 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 No acute intracranial process. 2. Stable appearance of age-related changes in the brain including moderate diffuse volume loss and mild to moderate scattered white matter hypoattenuation consistent with chronic small vessel ischemic disease. Chest CT 07/28/25 14:15 IMPRESSION: Bilateral bronchopneumonia. Sequelae of previous granulomatous disease. Probable reactive mediastinal lymphadenopathy. Follow-up is recommended to assess improvement. Modified Barium Swallow 07/29/25 10:47 IMPRESSION: Pharyngeal dysphagia with laryngeal penetration and silent aspiration. Please correlate with speech pathologist findings and specific feeding recommendations. Labs Labs: Laboratory Results - last 24 hr 07/31/25 07/31/25 07/31/25 00:49 05:27 06:06 WBC 8.5 RBC 2.13 L Hgb 6.3 L* Hct 21.1 L MCV 99.1 MCH 29.6 MCHC 29.9 L RDW 15.7 H Plt Count 186 MPV 8.9 Immature Gran % (Auto) 5.8 H Neut % (Auto) 63.4 Lymph % (Auto) 17.0 L [place] % (Auto) 11.6 H Eos % (Auto) 2.0 Baso % (Auto) 0.2 Lymph # (Auto) 1.44 [place] # (Auto) 1.0 H Eos # (Auto) 0.2 Baso # (Auto) 0.0 Abs Immat Gran (auto) 0.49 H Absolute Neuts (auto) 5.4 Absolute Nucleated RBC 0.030 H Band Neutrophils % Not Reportable Nucleated RBC % 0.4 H Platelet Estimate Adequate Hypochromasia 1+ Anisocytosis 1+ Target Cells 1+ [place] Cells Occasional Schistocytes None seen Sodium 142 Potassium 4.2 Chloride 112 H Carbon Dioxide 21 L Anion Gap 9 BUN 77 H Creatinine 3.39 H Estim Creat Clear Calc 19 Estimated GFR 18 L Glucose 129 H POC Capillary Glucose 142 H 135 H Calcium 7.7 L Magnesium 1.4 L Total Bilirubin 0.3 AST 53 ALT 45 Alkaline Phosphatase 148 H Total Protein 5.3 L Albumin 2.3 L Blood Type Antibody Screen Crossmatch [id number] 07/31/25 08:01 11:51 17:14 WBC RBC Hgb Hct MCV MCH MCHC RDW Plt Count MPV Immature Gran % (Auto) Neut % (Auto) Lymph % (Auto) [place] % (Auto) Eos % (Auto) Baso % (Auto) Lymph # (Auto) [place] # (Auto) Eos # (Auto) Baso # (Auto) Abs Immat Gran (auto) Absolute Neuts (auto) Absolute Nucleated RBC Band Neutrophils % Nucleated RBC % Platelet Estimate Hypochromasia Anisocytosis Target Cells [place] Cells Schistocytes Sodium Potassium Chloride Carbon Dioxide Anion Gap BUN Creatinine Estim Creat Clear Calc Estimated GFR Glucose POC Capillary Glucose 129 H 144 H Calcium Magnesium Total Bilirubin AST ALT Alkaline Phosphatase Total Protein Albumin Blood Type B Negative Antibody Screen Negative Crossmatch See Detail
[2025-07-31] MEDS: MAGNESIUM SULF 2 GM/WATER 50ML 2 GM/50 ML BAG IVPB (18:45)
[2025-07-31] MEDS: MIRTAZAPINE 15 MG TABLET FEED TUBE (21:37)
[2025-08-01] VITALS (18 sets, daily range): BP systolic 110–149; BP diastolic 47–83; PULSE 66–83; RESP 16–20; TEMP 36.1–36.8; O2SAT 96–98
[2025-08-01 06:17] LABS: Immature Granulocyte Percent A 4.6 % (0-0.5); Lymphocytes Absolute Auto 2.31 K/mm3 (0.9-3.2); Mean Corpuscular HGB Conc 29.7 g/dl (32-36); Mean Corpuscular Hemoglobin 29.7 pg (26-34); Mean Corpuscular Volume 100.0 fl (80-100); Nucleated Red Blood Cells Absolute Auto 0.000 K/mm3 (0.0-0.012); Nucleated Red Blood Cells Perc 0.0 % (0.0-0.2); Platelet Count Result 181 k/mm3 (150-375); Red Blood Count 2.09 M/mm3 (4.6-6.20); White Blood Count 8.4 K/mm3 (4.5-10.0)
[2025-08-01 06:40] LABS: Anion Gap 7 mmol/L (4-12); Blood Urea Nitrogen 88 mg/dL (9-20); Calcium 7.9 mg/dL (8.4-10.2); Carbon Dioxide 22 mmol/L (22-30); Chloride 109 mmol/L (98-107); Estimated CRCL calculation 18 ml/min; Estimated Glomerular Filt Rate 17; Glucose 118 mg/dL (65-110); Magnesium 1.9 mg/dL (1.6-2.3); Potassium 4.5 mmol/L (3.4-5.0); Sodium 138 mmol/L (137-145)
[2025-08-01] MEDS: HYDROcodone/acetaminophen (*CRX) 5-325 MG TABLET 1 TAB PO (06:44)
[2025-08-01 06:52] LABS: Hematocrit 20.9 % (42.0-52.0); Hemoglobin 6.2 g/dL (14.0-18.0)
[2025-08-01 06:53] LABS: Hypochromasia 2+; Schistocytes None Seen
--- NOTE | 2025-08-01 07:18 | PC.NURSE ---
Pt had critical labs for Hgb 6.1, Hct 20.5, has headache of 10 on scale 1-10. Deep [employer] ECONOMIC ADVISER, notified of critical results. Orders given for blood transfusing to increase levels and pain medication given for headache. Educated with patient about critical results and benefits of blood transfusion, he said he would like to think about if for a while. Report given to Amrita FERMIN to follow-up with decision when decided. Bed in lowest position, call light within reach, and bed alarm set for fall precaution.
--- NOTE | 2025-08-01 08:00 | PCPTNOTE ---
Attempted PT evaluation. Pt adamantly refused. Pt shakes his head no when attempting to encourage to pt sit up in chair. Nursing aware. Day 3 of refusing physial therapy.
[2025-08-01] MEDS: METOPROLOL TARTRATE 50 MG TAB FEED TUBE ×2 (09:25→21:59)
[2025-08-01] MEDS: FINASTERIDE 5 MG TABLET FEED TUBE (09:26)
[2025-08-01] MEDS: ATORVASTATIN 40 MG TABLET FEED TUBE (09:26)
[2025-08-01] MEDS: DOXYCYCLINE HYCLATE 100 MG TABLET FEED TUBE ×2 (09:27→21:58)
[2025-08-01] MEDS: AMOXICILLIN/CLAVULANATE K SUSP 500 MG/6.25 ML UD FEED TUBE ×2 (09:27→21:58)
[2025-08-01] MEDS: SODIUM CHLORIDE 0.9% IV 250 ML 30 ML IV CONT (11:15)
--- NOTE | 2025-08-01 11:32 | P.PNIM_ITS ---
Progress Note: A&P Assessment and Plan (1) Mental status change resolved: Code(s): Z86.59 - Personal history of other mental and behavioral disorders Status: Acute (2) Neurogenic bladder: Code(s): N31.9 - Neuromuscular dysfunction of bladder, unspecified Status: Acute (3) Pneumonia: Qualifiers: Laterality: left Lung location: lower lobe of lung Pneumonia type: due to unspecified organism Qualified Code(s): J18.9 - Pneumonia, unspecified organism Code(s): J18.9 - Pneumonia, unspecified organism Status: Acute (4) Acute on chronic anemia: Code(s): D64.9 - Anemia, unspecified Status: Acute Plan 70-year-old male with history of AFib on apixaban, BPH, neurogenic bladder with indwelling Bosch, BPH, dysphagia with feeding tube, CKD, diabetes, hypertension, chronic anemia, presented [facility] on 07/27/2025 urinalysis abnormal urine culture growing Proteus mirabilis. ----- Altered mental status: Mild, likely metabolic encephalopathy due to UTI. UTI: Bosch exchange. Was on meropenem and doxycycline, transition to Augmentin and Bactrim to end on 08/03. Bilateral bronchopneumonia/aspiration pneumonia: Antibiotics as above. No shortness of breath or cough. Blood cultures 07/27/2025 no growth to date. Dysphagia: Continue tube feeds. Diabetes: NPO, tube feeds. Accu-Cheks q.6 hours with insulin sliding scale. AFib with RVR: Currently normal sinus rhythm. Eliquis on hold due to anemia. 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 Acute on chronic anemia: Anemia of chronic disease, hemoglobin dropping from 8 to 6.3 on 07/31. Iron 106, saturation 61%. Ferritin 621. Vitamin B12 703, folate 3.7. Stool occult negative. Patient refused blood transfusion multiple times. On 08/01/2025 is willing, does not want EPOgen. Declined hospice evaluation. Transfuse 1 unit PRBC and recheck hemoglobin 1 hour after. CKD: Stable, continue to monitor. Patient wishes to be DNR. He has refused therapy. He wants to return home. He lives by himself. Saline lock IV. Continue tube feeds. Dietitian consulted. Patient wants to return home, to determine whether Eliquis distal appropriate with the patient Subjective Date/time seen: 08/01/25 11:32 Interval history: No major acute overnight events. Patient continued to decline red blood cell transfusion early in the morning however later he told the career technical counselor he was willing to take it and did not want hospice consultation. When I spoke to him again he was not enthusiastic but was willing to do it. He did not want to do Epogen at this time. Denies chest pain, cough, shortness of breath. Review of Systems Review of Systems: All systems reviewed & are unremarkable except as noted in HPI and below (Subjective) Exam Const: General: comfortable and no acute distress Eyes: Pupils: Equal, round and reactive pupils present Neck: Neck: supple Resp: Effort & Inspection: normal respiratory effort Auscultation: clear to auscultation bilaterally Cardio: Rate: regular rate Rhythm: regular rhythm GI: GI Palp: Yes Soft to palpation and No Tenderness to palpation present (GI) Extrem: General: no edema Objective Data Vital Signs Vital Signs: Vital Signs - 24 hr 07/31/25 12:00 07/31/25 12:00 07/31/25 16:00 Temperature 97.8 F Pulse Rate 67 68 71 Respiratory Rate 18 Blood Pressure 131/75 Pulse Oximetry 98 Oxygen Delivery 07/31/25 16:00 07/31/25 20:00 07/31/25 20:04 Temperature 98.4 F 98.9 F Pulse Rate 74 74 69 Respiratory Rate 18 18 Blood Pressure 121/59 L 117/62 Pulse Oximetry 95 97 Oxygen Delivery 07/31/25 20:08 07/31/25 21:36 07/31/25 21:37 Temperature Pulse Rate 74 Respiratory Rate Blood Pressure Pulse Oximetry 97 97 Oxygen Delivery Room Air Room Air 08/01/25 00:00 08/01/25 00:02 08/01/25 04:00 Temperature 98.2 F 98.3 F Pulse Rate 67 68 72 Respiratory Rate 20 16 Blood Pressure 123/59 L 135/62 Pulse Oximetry 97 98 Oxygen Delivery 08/01/25 04:04 08/01/25 08:00 08/01/25 08:00 Temperature 97.4 F L Pulse Rate 70 71 70 Respiratory Rate 20 Blood Pressure 122/55 L Pulse Oximetry 97 Oxygen Delivery 08/01/25 09:25 Temperature Pulse Rate 72 Respiratory Rate Blood Pressure Pulse Oximetry Oxygen Delivery Intake/Output Intake/Output: Intake & Output 07/29/25 07/30/25 07/31/25 08/01/25 23:59 23:59 23:59 23:59 Intake Total 3326.7 1550 3142.3 0 Output Total 1700 2550 2650 375 Balance 1626.7 -1000 492.3 -375 Meds/Results Medications: Active Medications Generic Name Dose Route Start Last Admin Trade Name Freq PRN Reason Stop Dose Admin Acetaminophen 650 mg 07/29/25 15:14 07/31/25 16:53 Acetaminophen Elixir 325 Mg/10.15 Ml Udc FEED TUBE 650 mg Q4H PRN Administration Mild Pain (1-3) or Fever Amoxicillin/Clavulanate Potassium 500 mg 07/30/25 21:00 08/01/25 09:27 Amoxicillin/Clavulanate K Susp 500 Mg/6.25 Ml Ud FEED TUBE 08/03/25 09:01 500 mg Q12HR BASSEM Administration Atorvastatin Calcium 40 mg 07/28/25 09:00 08/01/25 09:26 Atorvastatin 40 Mg Tablet FEED TUBE 40 mg DAILY BASSEM Administration Dextrose 12.5 gm 07/27/25 19:36 Dextrose 50% 25 Gm/50 Ml Syringe IV PUSH PRN PRN Hypoglycemia Protocol Doxycycline Hyclate 100 mg 07/30/25 21:00 08/01/25 09:27 Doxycycline Hyclate 100 Mg Tablet FEED TUBE 08/01/25 21:01 100 mg Q12HR BASSEM Administration Finasteride 5 mg 07/28/25 09:00 08/01/25 09:26 Finasteride 5 Mg Tablet FEED TUBE 5 mg QAM BASSEM Administration Glucagon 1 mg 07/27/25 19:36 Glucagon For Inj 1 Mg Vial IM PRN PRN Hypoglycemia Protocol Glucose 15 gm 07/27/25 19:36 Glucose Oral Gel 15 Gm Of Glucse In 37.5 Gm Tube PO PRN PRN Hypoglycemia Protocol Guaifenesin/Dextromethorphan 10 ml 07/27/25 23:00 08/01/25 09:27 Guaifenesin/Dextromethorphan 10 Ml Udc FEED TUBE 10 ml Q4HR BASSEM Administration Dextrose 1,000 mls @ 100 mls/hr 07/27/25 19:36 Dextrose 5% 1,000 Ml IVPB PRN PRN Hypoglycemia Protocol Sodium Chloride 250 mls @ 30 mls/hr 08/01/25 06:59 Normal Saline Iv IV CONT 08/01/25 15:18 .Q8H20M STA Insulin Aspart 2 - 5 units 07/28/25 00:00 08/01/25 06:20 Insulin Aspart (*Bkc) 100 Units/Ml SUB-Q Not Given Q6HR BASSEM Protocol Metoprolol Tartrate 50 mg 07/28/25 09:00 08/01/25 09:25 Metoprolol Tartrate 50 Mg Tab FEED TUBE 50 mg Q12HR BASSEM Administration Mirtazapine 15 mg 07/28/25 21:00 07/31/25 21:37 Mirtazapine 15 Mg Tablet FEED TUBE 15 mg HS BASSEM Administration Trimethoprim/Sulfamethoxazole 1 tab 07/30/25 21:00 08/01/25 09:26 Sulfamethoxazole/Trimethoprim 400/80 Mg Tablet FEED TUBE 08/03/25 09:01 1 tab Q12HR BASSEM Administration Radiology Results: ITS Impressions Chest X-Ray 07/27/25 15:30 IMPRESSION: 1. No acute cardiopulmonary disease. Head CT 07/27/25 15:31 IMPRESSION: 1. 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 No acute intracranial process. 2. Stable appearance of age-related changes in the brain including moderate diffuse volume loss and mild to moderate scattered white matter hypoattenuation consistent with chronic small vessel ischemic disease. Chest CT 07/28/25 14:15 IMPRESSION: Bilateral bronchopneumonia. Sequelae of previous granulomatous disease. Probable reactive mediastinal lymphadenopathy. Follow-up is recommended to assess improvement. Modified Barium Swallow 07/29/25 10:47 IMPRESSION: Pharyngeal dysphagia with laryngeal penetration and silent aspiration. Please correlate with speech pathologist findings and specific feeding recommendations. Labs Labs: Laboratory Results - last 24 hr 07/31/25 07/31/25 07/31/25 08:01 11:51 17:14 WBC RBC Hgb Hct MCV MCH MCHC RDW Plt Count MPV Immature Gran % (Auto) Neut % (Auto) Lymph % (Auto) [place] % (Auto) Eos % (Auto) Baso % (Auto) Lymph # (Auto) [place] # (Auto) Eos # (Auto) Baso # (Auto) Abs Immat Gran (auto) Absolute Neuts (auto) Absolute Nucleated RBC Band Neutrophils % Nucleated RBC % Platelet Estimate Hypochromasia Schistocytes Sodium Potassium Chloride Carbon Dioxide Anion Gap BUN Creatinine Estim Creat Clear Calc Estimated GFR Glucose POC Capillary Glucose 129 H 144 H Calcium Magnesium Blood Type B Negative Antibody Screen Negative Crossmatch See Detail 08/01/25 08/01/25 08/01/25 00:19 05:04 06:16 WBC 8.4 RBC 2.09 L Hgb 6.2 L* Hct 20.9 L* MCV 100.0 MCH 29.7 MCHC 29.7 L RDW 15.6 H Plt Count 181 MPV 9.3 Immature Gran % (Auto) 4.6 H Neut % (Auto) 52.8 Lymph % (Auto) 27.5 [place] % (Auto) 11.7 H Eos % (Auto) 3.0 Baso % (Auto) 0.4 Lymph # (Auto) 2.31 [place] # (Auto) 1.0 H Eos # (Auto) 0.3 Baso # (Auto) 0.0 Abs Immat Gran (auto) 0.39 H Absolute Neuts (auto) 4.4 Absolute Nucleated RBC 0.000 Band Neutrophils % Not Reportable Nucleated RBC % 0.0 Platelet Estimate Adequate Hypochromasia 2+ Schistocytes None seen Sodium 138 Potassium 4.5 Chloride 109 H Carbon Dioxide 22 Anion Gap 7 BUN 88 H D Creatinine 3.54 H Estim Creat Clear Calc 18 Estimated GFR 17 L Glucose 118 H POC Capillary Glucose 138 H 135 H Calcium 7.9 L Magnesium 1.9 Blood Type Antibody Screen Crossmatch
[2025-08-01] MEDS: ACETAMINOPHEN ELIXIR 325 MG/10.15 ML UDC 650 MG FEED TUBE ×2 (12:05→17:10)
[2025-08-01 15:54] LABS: Hematocrit 23.5 % (42.0-52.0); Hemoglobin 7.3 g/dL (14.0-18.0)
[2025-08-01] MEDS: MIRTAZAPINE 15 MG TABLET FEED TUBE (21:59)
[2025-08-02] VITALS (10 sets, daily range): BP systolic 123–170; BP diastolic 60–80; PULSE 65–80; RESP 18–20; TEMP 36.4–37.1; O2SAT 96–98
[2025-08-02 06:24] LABS: Hematocrit 25.0 % (42.0-52.0); Hemoglobin 7.8 g/dL (14.0-18.0); Mean Corpuscular HGB Conc 31.2 g/dl (32-36); Mean Corpuscular Hemoglobin 30.0 pg (26-34); Mean Corpuscular Volume 96.2 fl (80-100); Platelet Count Result 189 k/mm3 (150-375); Red Blood Count 2.60 M/mm3 (4.6-6.20); White Blood Count 11.1 K/mm3 (4.5-10.0)
[2025-08-02 06:46] LABS: Anion Gap 11 mmol/L (4-12); Blood Urea Nitrogen 95 mg/dL (9-20); Calcium 7.8 mg/dL (8.4-10.2); Carbon Dioxide 21 mmol/L (22-30); Chloride 106 mmol/L (98-107); Estimated CRCL calculation 18 ml/min; Estimated Glomerular Filt Rate 17; Glucose 126 mg/dL (65-110); Magnesium 1.8 mg/dL (1.6-2.3); Potassium 4.6 mmol/L (3.4-5.0); Sodium 138 mmol/L (137-145)
[2025-08-02] MEDS: ATORVASTATIN 40 MG TABLET FEED TUBE (09:19)
[2025-08-02] MEDS: FINASTERIDE 5 MG TABLET FEED TUBE (09:19)
[2025-08-02] MEDS: METOPROLOL TARTRATE 50 MG TAB FEED TUBE ×2 (09:20→20:13)
[2025-08-02] MEDS: ACETAMINOPHEN ELIXIR 325 MG/10.15 ML UDC 650 MG FEED TUBE (09:20)
[2025-08-02] MEDS: AMOXICILLIN/CLAVULANATE K SUSP 500 MG/6.25 ML UD FEED TUBE ×2 (09:21→20:15)
--- NOTE | 2025-08-02 09:36 | PCOTNOTE ---
Patient refused to participate in any activities at this time. Patient states he is having horrible constipation and in too much pain, leave me alone. Patient educated on movement and activity will help, declined. RN notified and aware
[2025-08-02 12:09] LABS: Procalcitonin 6.9 ng/mL
--- NOTE | 2025-08-02 12:20 | P.PNIM_ITS ---
Progress Note: A&P Assessment and Plan (1) Mental status change resolved: Code(s): Z86.59 - Personal history of other mental and behavioral disorders Status: Acute (2) Stage 3 chronic kidney disease: Code(s): N18.30 - Chronic kidney disease, stage 3 unspecified Status: Chronic (3) Neurogenic bladder: Code(s): N31.9 - Neuromuscular dysfunction of bladder, unspecified Status: Acute (4) UTI (urinary tract infection): Qualifiers: Urinary tract infection type: acute cystitis Hematuria presence: without hematuria Qualified Code(s): N30.00 - Acute cystitis without hematuria Code(s): N39.0 - Urinary tract infection, site not specified Status: Acute (5) Acute on chronic anemia: Code(s): D64.9 - Anemia, unspecified Status: Acute (6) Leukocytosis: Code(s): D72.829 - Elevated white blood cell count, unspecified Status: Acute Plan 70-year-old male with history of AFib on apixaban, BPH, neurogenic bladder with indwelling Bosch, BPH, dysphagia with feeding tube, CKD, diabetes, hypertension, chronic anemia, presented [facility] on 07/27/2025 urinalysis abnormal urine culture growing Proteus mirabilis. ----- Altered mental status: Mild, likely metabolic encephalopathy due to UTI. UTI: Bosch exchange. Was on meropenem and doxycycline, finish doxycycline 5 days, transition to Augmentin to end 70 course on 08/03/2025. Leukocytosis: Had normalized but increased to 11.1 on 08/02/2025. No symptomatology to indicate worsening infection, afebrile. However, procalcitonin is abnormally high at 6.9 and while this could be elevated due to his CKD will watch him another day. Continue Augmentin. Check procalcitonin and CBC with differential tomorrow on 08/03/2025. Bilateral bronchopneumonia/aspiration pneumonia: Antibiotics as above. No shortness of breath or cough. Blood cultures 07/27/2025 no growth to date. Dysphagia: Continue tube feeds. Diabetes: NPO, tube feeds. Accu-Cheks q.6 hours with insulin sliding scale. AFib with RVR: Currently normal sinus rhythm. Eliquis on hold due to anemia. No evidence of hemorrhage, drop in hemoglobin due to acute infection with chronic anemia. Restart Eliquis on 08/03/2025 if no further drop in hemoglobin. 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 Acute on chronic anemia: Anemia of chronic disease, hemoglobin dropping from 8 to 6.3 on 07/31. Iron 106, saturation 61%. Ferritin 621. Vitamin B12 703, folate 3.7. Stool occult negative. Patient refused blood transfusion multiple times. On 08/01/2025 is willing, does not want EPOgen. Declined hospice evaluation. Status post 1 unit PRBC on 08/01/2025 and now hemoglobin is at 7.8 on 08/02/2025. CKD: Stable, continue to monitor. Patient wishes to be DNR. He has refused physical therapy while inpatient. He requires multiple discussions and positive encouragement. Plan to discharge to [facility]. He lives by himself prior to admission. Uses walker at baseline. Saline lock IV. Continue tube feeds. Dietitian consulted. Subjective Date/time seen: 08/02/25 12:20 Interval history: No major acute overnight events. Afebrile. Patient reports he feels as if he should stay another day but he has nothing to report. Seems as if he just appreciates the care here. He cannot elicit any symptoms. Denies fever, shortness of breath, cough, chest pain, abdominal pain, diarrhea, vomiting. Review of Systems Review of Systems: All systems reviewed & are unremarkable except as noted in HPI and below (Subjective) Exam Const: General: comfortable and no acute distress Other: A&O x3 HENMT: Mouth: Yes moist mucous membranes Eyes: Pupils: Equal, round and reactive pupils present Neck: Neck: supple Resp: Effort & Inspection: normal respiratory effort Auscultation: clear to auscultation bilaterally Cardio: Rate: regular rate Rhythm: regular rhythm Heart sounds: no murmurs GI: Inspection: non-distended GI Palp: Yes Soft to palpation Other: Feeding to insertion site within normal limits, no erythema. No suprapubic pain upon palpation. Urinary Catheter: Urinary Catheter: patent and draining and urine clear Neuro: Motor exam (neuro): 5/5 motor strength present throughout Extrem: General: no edema Objective Data Vital Signs Vital Signs: Vital Signs - 24 hr 08/01/25 12:55 08/01/25 13:55 08/01/25 14:00 Temperature 97.3 F L 97.0 F L 97.5 F L Pulse Rate 69 66 71 Respiratory Rate 16 18 20 Blood Pressure 117/55 L 117/52 L 122/55 L Pulse Oximetry 96 97 97 Oxygen Delivery 08/01/25 14:38 08/01/25 16:00 08/01/25 16:00 Temperature 97.1 F L 97.5 F L Pulse Rate 69 71 74 Respiratory Rate 16 18 Blood Pressure 120/55 L 120/50 L Pulse Oximetry 96 98 Oxygen Delivery 08/01/25 20:00 08/01/25 20:04 08/01/25 21:59 Temperature 98.2 F Pulse Rate 71 69 70 Respiratory Rate 18 Blood Pressure 148/72 H Pulse Oximetry 96 Oxygen Delivery 08/01/25 22:17 08/02/25 00:00 08/02/25 00:02 Temperature 98.8 F Pulse Rate 66 65 Respiratory Rate 20 Blood Pressure 155/75 H Pulse Oximetry 96 97 Oxygen Delivery Room Air 08/02/25 04:00 08/02/25 04:05 08/02/25 08:00 Temperature 98.2 F Pulse Rate 68 69 Respiratory Rate 20 Blood Pressure 160/79 H Pulse Oximetry 97 Oxygen Delivery Room Air 08/02/25 08:00 08/02/25 09:20 Temperature Pulse Rate 74 76 Respiratory Rate Blood Pressure Pulse Oximetry Oxygen Delivery Intake/Output Intake/Output: Intake & Output 07/30/25 07/31/25 08/01/25 08/02/25 23:59 23:59 23:59 23:59 Intake Total 1550 3142.3 1570 0 Output Total 2550 2650 375 750 Balance -1000 492.3 1195 -750 Meds/Results Medications: Active Medications Generic Name Dose Route Start Last Admin Trade Name Freq PRN Reason Stop Dose Admin Acetaminophen 650 mg 07/29/25 15:14 08/02/25 09:20 Acetaminophen Elixir 325 Mg/10.15 Ml Udc FEED TUBE 650 mg Q4H PRN Administration Mild Pain (1-3) or Fever Amoxicillin/Clavulanate Potassium 500 mg 07/30/25 21:00 08/02/25 09:21 Amoxicillin/Clavulanate K Susp 500 Mg/6.25 Ml Ud FEED TUBE 08/03/25 09:01 500 mg Q12HR BASSEM Administration Atorvastatin Calcium 40 mg 07/28/25 09:00 08/02/25 09:19 Atorvastatin 40 Mg Tablet FEED TUBE 40 mg DAILY BASSEM Administration Dextrose 12.5 gm 07/27/25 19:36 Dextrose 50% 25 Gm/50 Ml Syringe IV PUSH PRN PRN Hypoglycemia Protocol Finasteride 5 mg 07/28/25 09:00 08/02/25 09:19 Finasteride 5 Mg Tablet FEED TUBE 5 mg QAM BASSEM Administration Glucagon 1 mg 07/27/25 19:36 Glucagon For Inj 1 Mg Vial IM PRN PRN Hypoglycemia Protocol Glucose 15 gm 07/27/25 19:36 Glucose Oral Gel 15 Gm Of Glucse In 37.5 Gm Tube PO PRN PRN Hypoglycemia Protocol Guaifenesin/Dextromethorphan 10 ml 07/27/25 23:00 08/02/25 12:00 Guaifenesin/Dextromethorphan 10 Ml Udc FEED TUBE 10 ml Q4HR BASSEM Administration Dextrose 1,000 mls @ 100 mls/hr 07/27/25 19:36 Dextrose 5% 1,000 Ml IVPB PRN PRN Hypoglycemia Protocol Insulin Aspart 2 - 5 units 07/28/25 00:00 08/02/25 00:43 Insulin Aspart (*Bkc) 100 Units/Ml SUB-Q Not Given Q6HR BASSEM Protocol Metoprolol Tartrate 50 mg 07/28/25 09:00 08/02/25 09:20 Metoprolol Tartrate 50 Mg Tab FEED TUBE 50 mg Q12HR BASSEM Administration Mirtazapine 15 mg 07/28/25 21:00 08/01/25 21:59 Mirtazapine 15 Mg Tablet FEED TUBE 15 mg HS BASSEM Administration Radiology Results: ITS Impressions Chest X-Ray 07/27/25 15:30 IMPRESSION: 1. No acute cardiopulmonary disease. Head CT 07/27/25 15:31 IMPRESSION: 1. 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 No acute intracranial process. 2. Stable appearance of age-related changes in the brain including moderate diffuse volume loss and mild to moderate scattered white matter hypoattenuation consistent with chronic small vessel ischemic disease. Chest CT 07/28/25 14:15 IMPRESSION: Bilateral bronchopneumonia. Sequelae of previous granulomatous disease. Probable reactive mediastinal lymphadenopathy. Follow-up is recommended to assess improvement. Modified Barium Swallow 07/29/25 10:47 IMPRESSION: Pharyngeal dysphagia with laryngeal penetration and silent aspiration. Please correlate with speech pathologist findings and specific feeding recommendations. Labs Labs: Laboratory Results - last 24 hr 07/31/25 08/01/25 08/01/25 08:01 15:42 16:43 WBC RBC Hgb 7.3 L Hct 23.5 L MCV MCH MCHC RDW Plt Count MPV Sodium Potassium Chloride Carbon Dioxide Anion Gap BUN Creatinine Estim Creat Clear Calc Estimated GFR Glucose POC Capillary Glucose 105 Calcium Magnesium Procalcitonin Crossmatch See Detail 08/02/25 08/02/25 08/02/25 00:04 05:46 06:49 WBC 11.1 H RBC 2.60 L Hgb 7.8 L Hct 25.0 L MCV 96.2 MCH 30.0 MCHC 31.2 L RDW 16.4 H Plt Count 189 MPV 9.1 Sodium 138 Potassium 4.6 Chloride 106 Carbon Dioxide 21 L Anion Gap 11 BUN 95 H Creatinine 3.61 H Estim Creat Clear Calc 18 Estimated GFR 17 L Glucose 126 H POC Capillary Glucose 106 H 141 H Calcium 7.8 L Magnesium 1.8 Procalcitonin 6.9 Crossmatch
--- NOTE | 2025-08-02 12:36 | PCNFU ---
Nutrition Follow-Up Complete: Inadequate po intake related to dysphagia as evidenced by speech evaluation with recommendations for NPO Meet estimated needs via tube feeding - Goal is being met with tube feeding at goal Goal: Pt current nutrition is Jevity 1.5 @ goal rate 60 ml/h with flushes 120 ml q 4 h Nutrition recommendation: Bolus recommendations if needed: Jevity 1.5 bolus 330 ml QID. Flush 250 ml QID. Provides 1980 kcal, 84 g protein, 1003 ml free water with 2000 ml free water total including flushes. Last recorded weight is 74.9 kg. Bowel Motility: +1 ML 07/31 Labs Reviewed: Hgb 7.8, Hct 25, BUN 95, Cre 3.61, Glu 126 Meds Noted: Remeron, eliquis, novolog Skin: No skin issues Additional Notes: Pt was on tube feeds with PEG tube prior to admission s/t past CVA, dysphagia. Current tube feeding provides 1980 kcal, 84 g protein, 1003 ml free water, 1723 ml free water with flushes. 100% EER. Monitor tube feeding, tolerance, wt, labs. Follow up every Tuesday and Tuesday
--- NOTE | 2025-08-02 12:45 | PC.NURSE ---
Called patient's daughter to give update as requested at 10:09 was unable to get a hold of her at that time, left a voicemail with number to med surge unit.
--- NOTE | 2025-08-02 12:46 | PCDIET ---
Nutrition note: Bolus recommendations if needed: Jevity 1.5 bolus 330 ml QID. Flush 250 ml QID. Provides 1980 kcal, 84 g protein, 1003 ml free water with 2000 ml free water total including flushes.
--- NOTE | 2025-08-02 14:32 | PCOTNOTE ---
Patient refused, I'm sleeping, go away, not doing anything..
--- NOTE | 2025-08-02 16:12 | PC.NURSE ---
Patient pulled out IV and is refusing to have another one as of now, provider notified.
--- NOTE | 2025-08-02 17:26 | PC.NURSE ---
Patient refused to turn and change dressing.
[2025-08-02] MEDS: MIRTAZAPINE 15 MG TABLET FEED TUBE (20:13)
[2025-08-03] VITALS: BP 144/65; PULSE 68; RESP 20; TEMP 36.8; O2SAT 96
[2025-08-03 04:00] VITALS: BP 145/67; PULSE 72; RESP 16; TEMP 36.8; O2SAT 97
--- NOTE | 2025-08-03 07:15 | PC.NURSE ---
Refused blood draw.
[2025-08-03 08:00] VITALS: BP 133/60; PULSE 74; RESP 18; TEMP 36.5; O2SAT 97
[2025-08-03] MEDS: ATORVASTATIN 40 MG TABLET FEED TUBE (09:20)
[2025-08-03] MEDS: FINASTERIDE 5 MG TABLET FEED TUBE (09:20)
[2025-08-03] MEDS: METOPROLOL TARTRATE 50 MG TAB FEED TUBE (09:20)
[2025-08-03] MEDS: AMOXICILLIN/CLAVULANATE K SUSP 500 MG/6.25 ML UD FEED TUBE (09:34)
[2025-08-03 11:52] VITALS: BP 139/67; PULSE 69; RESP 20; TEMP 36.1; O2SAT 98
--- NOTE | 2025-08-03 13:47 | P.DS_ITS ---
DS: Admitting Diagnosis Discharge Date 08/03/2025 Admitting Diagnosis Altered mental status DS: Discharge Diagnosis Discharge Diagnosis (1) Mental status change resolved: Code(s): Z86.59 - Personal history of other mental and behavioral disorders Status: Acute (2) Hypertension: Qualifiers: Hypertension type: primary hypertension Qualified Code(s): I10 - Essential (primary) hypertension Code(s): I10 - Essential (primary) hypertension Status: Chronic (3) Acute UTI: Code(s): N39.0 - Urinary tract infection, site not specified Status: Acute DS: Summary Hospital Course Hospital Course: 70-year-old male with history of AFib on apixaban, BPH, neurogenic bladder with indwelling Perdomo, BPH, dysphagia with feeding tube, CKD, diabetes, hypertension, chronic anemia, presented [facility] on 07/27/2025 urinalysis abnormal urine culture growing Proteus mirabilis. ----- Altered mental status: Mild, likely metabolic encephalopathy due to UTI. UTI: Perdomo exchange. Was on meropenem and doxycycline, finish doxycycline 5 days, transition to Augmentin to and 7 day course on 08/03/2025. Leukocytosis: Initial resolve, increasing to 11.1 on 08/02/2025 with a proca lcitonin of 6.9. On 08/03 the patient is refusing labs. He is aware that I am unable to treat him effectively do not follow-up on these values. He said that is okay no more antibiotics and he wants to be discharged. Restart Eliquis, same risks versus benefits of not checking labs discussed with the patient. Hemoglobin was relatively stable. Bilateral bronchopneumonia/aspiration pneumonia: Antibiotics as above. No shortness of breath or cough. Blood cultures 07/27/2025 no growth to date. Dysphagia: Continue tube feeds. Diabetes: NPO, tube feeds. Accu-Cheks q.6 hours with insulin sliding scale. AFib with RVR: Currently normal sinus rhythm. Eliquis on hold due to anemia. No evidence of hemorrhage, drop in hemoglobin due to acute infection with chronic anemia. 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 Acute on chronic anemia: Anemia of chronic disease, hemoglobin dropping from 8 to 6.3 on 07/31. Iron 106, saturation 61%. Ferritin 621. Vitamin B12 703, folate 3.7. Stool occult negative. Patient refused blood transfusion multiple times. On 08/01/2025 is willing, does not want EPOgen. Declined hospice evaluation. Status post 1 unit PRBC on 08/01/2025 and now hemoglobin is at 7.8 on 08/02/2025. CKD: Stable, continue to monitor. Patient wishes to be DNR. He has refused physical therapy while inpatient. He requires multiple discussions and positive encouragement. Plan to discharge to [facility]. He lives by himself prior to admission. Uses walker at baseline. Saline lock IV. Resume bolus tube feeds on discharge. Time Spent with Patient Time attestation: Total time spent providing and/or coordinating discharge services: Exam Const: General: comfortable and no acute distress Other: A&O x3 HENMT: Mouth: Yes moist mucous membranes Eyes: Pupils: Equal, round and reactive pupils present Neck: Neck: supple Resp: Effort & Inspection: normal respiratory effort Auscultation: clear to auscultation bilaterally Cardio: Rate: regular rate Rhythm: regular rhythm Heart sounds: no murmurs GI: Inspection: non-distended GI Palp: Yes Soft to palpation Other: Feeding to insertion site within normal limits, no erythema. No suprapubic pain upon palpation. Urinary Catheter: Urinary Catheter: patent and draining and urine clear Neuro: Motor exam (neuro): 5/5 motor strength present throughout Extrem: General: no edema DS: Data Data Completed and Pending Labs on day of discharge: Labs from last 24 hours 08/03/25 08/03/25 08/02/25 11:29 05:25 23:54 POC Capillary Glucose 94 126 H 124 H 08/02/25 16:52 POC Capillary Glucose 123 H Preliminary micro results at discharge 07/27/25 19:25 Blood Culture - Preliminary Blood 07/27/25 19:25 Blood Culture - Preliminary Blood Discharge Plan Discharge Attending physician on discharge: Yenifer Walters Discharging Clinician: Yenifer Walters Patient Disposition: SNF Activity: may shower Diet: other - see discharge instructions Discharge Instructions: Per Care Coordination: [facility] will resume services at discharge. [facility] will follow for RN perdomo catheter and Tube Feed education. PT/OT eval and treat. [facility] can be contacted at . Nursing please fax discharge instructions to . Resume a bolus feeding with Jevity 1.5 325 mL q.i.d., flush with free water 200 cc q.4 hours Patient Instructions: Antibiotic Form, Apixaban (By mouth), Heart Failure (DC), How to Stop Smoking (DC) Patient Language: Yakut Stand Alone Forms: General Discharge Information, Skilled Nursing Discharge Follow-up/Referrals: Ronnell Zhang MD [Primary Care Provider, [facility]] Discharge Medications: Continued atorvastatin 40 mg tablet 40 mg feeding tube DAILY metoprolol tartrate 50 mg tablet 50 mg feeding tube Q12HR finasteride [Proscar] 5 mg tablet 5 mg feeding tube QAM apixaban 5 mg Tablet 5 mg feeding tube BID mirtazapine [Remeron] 15 mg tablet 15 mg feeding tube HS Qty: 30 0RF Date of admission: 07/28/25 09:16 Primary Care Provider: Ronnell Zhang Admitting Provider: Leonard Marcos Attending physician on admission: Leonard Marcos Condition: Stable Hospitalist MIPS Heart Failure (Exclusion) Patient has history of Heart Transplant or Left Ventricular Assistive Device?: No IF YES, STOP HERE Heart Failure (Qualifier) Patient has current or prior documentation of LVEF less than or equal to 40%, or mod/servere depressed LVSF?: No IF NO, STOP HERE
[2025-08-03 15:33] LABS: SARS-CoV-2 RNA PCR Negative (Negative)
--- OUTSIDE RECORDS SUMMARY | 2025-08-13 19:00 | XMS_ITS | Clinical Summary ---
Author Organization Unknown Care Team Providers Care Furniture Delivery Driver Name Role Phone TRACY NICHOLS, JUAN ANTONIO Unavailable Unavailable NAPOLEON RN, DIEGO Unavailable Unavailable NGA RN, MIRELA Unavailable Unavailable Payers Payer Name Policy Type Policy Number Effective Date Expira tion Date MEDICARE - [place] - PDGM [id number] Problems Condition Name Condition Details Condition Category Status Onset Date Resolution Date Last Treatment Date Treating Clinician Comments NEUROMUSCULA R DYSFUNCTION OF BLADDER, UNSPECIFIED Active 11-21 00:00: 00 PAROXYSMAL ATRIAL FIBRILLATION Active 11-21 00:00: 00 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 CHR KDNY Active 11-21 00:00: 00 CHRONIC COMBINED SYSTOLIC AND DIASTOLIC HRT FAIL Active 11-21 00:00: 00 TYPE 2 DIABETES MELLITUS W DIABETIC CHRONIC KIDNEY DISEASE Active 11-21 00:00: 00 CHRONIC KIDNEY DISEASE, UNSPECIFIED Active 11-21 00:00: 00 DEPRESSION, UNSPECIFIED Active 11-21 00:00: 00 ENCOUNTER FOR ATTENTION TO GASTROSTOMY Active 11-21 00:00: 00 BENIGN PROSTATIC HYPERPLASIA WITH LOWER URINARY TRACT SYMP Active 11-21 00:00: 00 OTHER RETENTION OF URINE Active 11-21 00:00: 00 UNSPECIFIED PROTEIN-BRENDA NUSRAT MALNUTRITION Active 11-21 00:00: 00 DYSPHAGIA, UNSPECIFIED Active 11-21 00:00: 00 ANXIETY DISORDER, UNSPECIFIED Active 11-21 00:00: 00 PRIMARY GENERALIZED (OSTEO)ARTHR ITIS Active 11-21 00:00: 00 NICOTINE DEPENDENCE, CIGARETTES, UNCOMPLICATE D Active 11-21 00:00: 00 HYPERLIPIDEM IA, UNSPECIFIED Active 11-21 00:00: 00 PRSNL HX OF TIA (TIA), AND CEREB INFRC W/O RESID DEFICITS Active 11-21 00:00: 00 SANITARY PLUMBER (CURRENT) USE OF ANTICOAGULAN TS Active 11-21 00:00: 00 ACQUIRED ABSENCE OF OTHER ORGANS Active 11-21 00:00: 00 ENCOUNTER FOR FITTING AND ADJUSTMENT OF URINARY DEVICE Active 11-21 00:00: 00 Allergies, Adverse Reactions, Alerts Allergy Name Allergy Type Status Severity Reaction(s) Onset Date Inactive Date Treating Clinician Comments NKA Propensity to adverse reactions Active 2025-05 11:39:1 0 Medications Ordered Medication Name Filled Medication Name Start Date Stop Date Current Medication? Ordering Clinician Indication Dosage Frequency Signature (SIG) Comments Components Calcium 600 + D(3) 600 mg-10 mcg (400 unit) tablet 01-08 00:00: 00 03-26 23:59 :00 No [id number] 1 tablet DAILY 1 tablet DAILY (route: oral) Med Classific ation: Electroly te Balance-N utritiona l Products ferrous sulfate 324 mg (65 mg iron) tablet,tho yed release 01-08 00:00: 00 03-26 23:59 :00 No [id number] 1 tablet 2 TIMES DAILY 1 tablet 2 TIMES DAILY (route: oral) Med Classific ation: Electroly te Balance-N utritiona l Products metoprolol tartrate 50 mg tablet 01-08 00:00: 00 05-19 00:00 :00 No [id number] 1 tablet 2 TIMES DAILY 1 tablet 2 TIMES DAILY (route: oral) Med Classific ation: Cardiovas cular Therapy Agents potassium chloride ER 20 mEq tablet,exte nded release 01-08 00:00: 00 03-26 23:59 :00 No [id number] 1 tablet DAILY 1 tablet DAILY (route: oral) Med Classific ation: Electroly te Balance-N utritiona l Products tamsulosin 0.4 mg capsule 01-08 00:00: 00 05-19 00:00 :00 No [id number] 1 capsule 2 TIMES DAILY 1 capsule 2 TIMES DAILY (route: oral) Med Classific ation: Genitouri nary Therapy Thera 400 mcg tablet 2-18 00:00: 00 02-12 23:59 :00 No [id number] 1 tablet DAILY 1 tablet DAILY (route: oral) Med Classific ation: Electroly te Balance-N utritiona l Products amoxicillin 875 mg-potassiu m clavulanate 125 mg tablet 3-17 00:00: 00 02-07 23:59 :00 No [id number] 1 tablet 2 TIMES DAILY 1 tablet 2 TIMES DAILY (route: oral) Med Classific ation: Anti-Infe ctive Agents bethanechol chloride 5 mg tablet - 00:00: 00 03-26 23:59 :00 No [id number] 1 tablet 2 TIMES DAILY 1 tablet 2 TIMES DAILY (route: oral) Med Classific ation: Genitouri nary Therapy therapeutic multivitami n tablet 3-16 00:00: 00 05-19 00:00 :00 No [id number] 1 tablet DAILY 1 tablet DAILY (route: oral) Alternate Route: NONE. Med Classific ation: Electroly te Balance-N utritiona l Products sodium chloride 0.9 % irrigation solution 4-16 00:00: 00 05-19 00:00 :00 No [id number] 30-60 mL NEEDED 30-60 mL NEEDED (route: irrigation ) Med Classific ation: Electroly te Balance-N utritiona l Products Aspirin Childrens 81 mg chewable tablet - 00:00: 00 05-19 00:00 :00 No [id number] 1 tablet DAILY 1 tablet DAILY (route: oral) Med Classific ation: Hematolog ical Agents atorvastati n 40 mg tablet - 00:00: 00 05-19 00:00 :00 No [id number] 1 tablet BEDTIME 1 tablet BEDTIME (route: oral) Med Classific ation: Cardiovas cular Therapy Agents bethanechol chloride 5 mg tablet - 00:00: 00 05-19 00:00 :00 No [id number] 1 tablet 3 TIMES DAILY 1 tablet 3 TIMES DAILY (route: oral) Med Classific ation: Genitouri nary Therapy finasteride 5 mg tablet 03-26 00:00: 00 05-19 00:00 :00 No [id number] 1 tablet DAILY 1 tablet DAILY (route: oral) Med Classific ation: Genitouri nary Therapy mirtazapine 15 mg tablet 03-26 00:00: 05-19 00:00 :00 No [id number] 1 tablet BEDTIME 1 tablet BEDTIME (route: oral) Med Classific ation: Central Nervous System Agents atorvastati n 40 mg tablet 05-19 00:00: 00 09-12 10:45 :46.7 17 No [id number] 1 tablet DAILY 1 tablet DAILY (route: oral) Alternate Route: G-TUBE. Med Classific ation: Cardiovas cular Therapy Agents Eliquis 5 mg tablet 05-19 00:00: 10-25 23:59 :00 No [id number] 1 tablet 2 TIMES DAILY 1 tablet 2 TIMES DAILY (route: oral) Med Classific ation: Hematolog ical Agents ferrous sulfate 220 mg (44 mg iron)/5 mL oral elixir 05-19 00:00: 00 09-12 10:45 :52.6 No [id number] 5 mL 2 TIMES DAILY 5 mL 2 TIMES DAILY (route: oral) Alternate Route: G-TUBE. Med Classific ation: Electroly te Balance-N utritiona l Products finasteride 5 mg tablet 05-19 00:00: 00 09-12 10:45 :55.1 27 No [id number] 5 mg EVERY AM 5 mg EVERY AM (route: oral) Alternate Route: G-TUBE. Med Classific ation: Genitouri nary Therapy FREE WATER FLUSH 05-19 00:00: 00 10-25 23:59 :00 No [id number] 200 ml 4 TIMES DAILY 200 ml 4 TIMES DAILY (route: G-TUBE) Alternate Route: G-TUBE. Med Classific ation: NONE furosemide 20 mg tablet 05-19 00:00: 00 07-11 23:59 :00 No [id number] 20 mg 2 TIMES DAILY 20 mg 2 TIMES DAILY (route: oral) Alternate Route: G-TUBE. Med Classific ation: Cardiovas cular Therapy Agents hydrocodone 5 mg-acetamin ophen 325 mg tablet 05-19 00:00: 00 10-24 23:59 :00 No [id number] 1 tablet EVERY 6 HOURS 1 tablet EVERY 6 HOURS (route: oral) Med Classific ation: Analgesic , Anti-infl ammatory or Antipyret ic Jevity 1.5 Adama 0.06 gram-1.5 kcal/mL oral liquid 05-19 00:00: 00 08-08 23:59 :00 No [id number] 300 mL 4 TIMES DAILY 300 mL 4 TIMES DAILY (route: oral) Alternate Route: G-TUBE. Med Classific ation: Electroly te Balance-N utritiona l Products metoprolol tartrate 50 mg tablet 05-19 00:00: 00 09-12 10:46 :01.4 93 No [id number] 1 tablet EVERY 12 HOURS 1 tablet EVERY 12 HOURS (route: oral) Alternate Route: G-TUBE. Med Classific ation: Cardiovas cular Therapy Agents mirtazapine 15 mg tablet 05-19 00:00: 00 09-12 10:46 :07.8 53 No [id number] 1 tablet BEDTIME 1 tablet BEDTIME (route: oral) Alternate Route: G-TUBE. Med Classific ation: Central Nervous System Agents tamsulosin 0.4 mg capsule 05-19 00:00: 00 10-25 23:59 :00 No [id number] 1 capsule EVERY PM 1 capsule EVERY PM (route: oral) Med Classific ation: Genitouri nary Therapy acetaminoph en 160 mg/5 mL (5 mL) oral solution 05-19 00:00: 00 09-12 10:43 :21.9 63 No [id number] 20.3 mL EVERY 4 HOURS 20.3 mL EVERY 4 HOURS (route: oral) Alternate Route: PEG TUBE. Med Classific ation: Analgesic , Anti-infl ammatory or Antipyret ic amoxicillin 875 mg-potassiu m clavulanate 125 mg tablet 05-17 00:00: 00 05-19 23:59 :00 No [id number] 1 tablet 2 TIMES DAILY 1 tablet 2 TIMES DAILY (route: oral) Med Classific ation: Anti-Infe ctive Agents sodium chloride 0.9 % irrigation solution 05-19 00:00: 00 06-24 10:35 :14.5 No [id number] 30-60 mL NEEDED 30-60 mL NEEDED (route: irrigation ) Med Classific ation: Electroly te Balance-N utritiona l Products Jevity 1.5 Adama 0.06 gram-1.5 kcal/mL oral liquid 918 00:00: 00 10-25 23:59 :00 No [id number] Per instruc tions DAILY Per instructio ns DAILY (route: oral) Alternate Route: G-TUBE. Med Classific ation: Electroly te Balance-N utritiona l Products bethanechol chloride 5 mg tablet 2023-11 0-13 00:00: 00 10-25 23:59 :00 No [id number] 1 tablet 3 TIMES DAILY 1 tablet 3 TIMES DAILY (route: oral) Med Classific ation: Genitouri nary Therapy atorvastati n 40 mg tablet 2023-11 0-22 00:00: 00 10-25 23:59 :00 No [id number] 1 tablet DAILY 1 tablet DAILY (route: oral) Med Classific ation: Cardiovas cular Therapy Agents ferrous sulfate 220 mg (44 mg iron)/5 mL oral elixir 2023-11 0-23 00:00: 00 10-25 23:59 :00 No [id number] 5 mL 2 TIMES DAILY 5 mL 2 TIMES DAILY (route: oral) Med Classific ation: Electroly te Balance-N utritiona l Products finasteride 5 mg tablet 2023-11 0-23 00:00: 00 10-25 23:59 :00 No [id number] 1 tablet DAILY 1 tablet DAILY (route: oral) Med Classific ation: Genitouri nary Therapy metoprolol tartrate 50 mg tablet 2023-11 0-23 00:00: 00 10-25 23:59 :00 No [id number] 1 tablet EVERY 12 HOURS 1 tablet EVERY 12 HOURS (route: oral) Med Classific ation: Cardiovas cular Therapy Agents mirtazapine 15 mg tablet 2023-11 0-23 00:00: 00 10-25 23:59 :00 No [id number] 1 tablet BEDTIME 1 tablet BEDTIME (route: oral) Med Classific ation: Central Nervous System Agents atorvastati n 40 mg tablet 2023-11 00:00: 00 06-24 10:29 :57.8 67 No [id number] 1 tablet DAILY 1 tablet DAILY (route: oral) Alternate Route: G-TUBE. Med Classific ation: Cardiovas cular Therapy Agents bethanechol chloride 5 mg tablet 2023-11 00:00: 00 06-16 00:00 :00 No [id number] 1 tablet 3 TIMES DAILY 1 tablet 3 TIMES DAILY (route: oral) Alternate Route: G-TUBE. Med Classific ation: Genitouri nary Therapy Children's Tylenol 160 mg/5 mL oral suspension 2023-11 00:00: 00 06-16 00:00 :00 No [id number] 20.3 mL NEEDED 20.3 mL NEEDED (route: oral) Alternate Route: G-TUBE. Med Classific ation: Analgesic , Anti-infl ammatory or Antipyret ic Eliquis 5 mg tablet 2023-11 00:00: 00 06-24 10:31 :15.4 33 No [id number] 1 tablet 2 TIMES DAILY 1 tablet 2 TIMES DAILY (route: oral) Alternate Route: G-TUBE. Med Classific ation: Hematolog ical Agents finasteride 5 mg tablet 2023-11 00:00: 00 06-24 10:31 :36.2 23 No [id number] 1 tablet DAILY 1 tablet DAILY (route: oral) Alternate Route: G-TUBE. Med Classific ation: Genitouri nary Therapy ipratropium 0.5 mg-albutero l 3 mg (2.5 mg base)/3 mL nebulizatio n soln 2023-11 00:00: 00 01-10 23:59 :00 No [id number] 3 mL NEEDED 3 mL NEEDED (route: inhalation ) Med Classific ation: Respirato ry Therapy Agents Jevity 1.5 Adama 0.06 gram-1.5 kcal/mL oral liquid 2023-11 00:00: 00 06-24 10:33 :59.7 8 No [id number] 300 mL 4 TIMES DAILY 300 mL 4 TIMES DAILY (route: oral) Alternate Route: G-TUBE. Med Classific ation: Electroly te Balance-N utritiona l Products metoprolol tartrate 50 mg tablet 2023-11 00:00: 00 06-24 10:32 :05.5 6 No [id number] 1 tablet 2 TIMES DAILY 1 tablet 2 TIMES DAILY (route: oral) Alternate Route: G-TUBE. Med Classific ation: Cardiovas cular Therapy Agents mirtazapine 15 mg tablet 2023-11 00:00: 00 06-24 10:32 :24.9 53 No [id number] 1 tablet BEDTIME 1 tablet BEDTIME (route: oral) Alternate Route: G-TUBE. Med Classific ation: Central Nervous System Agents Macrobid 100 mg capsule 3- 00:00: 00 02-22 23:59 :00 No [id number] 1 capsule EVERY 12 HOURS 1 capsule EVERY 12 HOURS (route: oral) Med Classific ation: Genitouri nary Therapy amlodipine 2.5 mg tablet 06-16 00:00: 00 Yes [id number] 1 tablet DAILY 1 tablet DAILY (route: oral) Med Classific ation: Cardiovas cular Therapy Agents benzonatate 100 mg capsule 06-16 00:00: 00 Yes [id number] 1 capsule 3 TIMES DAILY 1 capsule 3 TIMES DAILY (route: oral) Med Classific ation: Respirato ry Therapy Agents MagOx 400 mg (241.3 mg magnesium) tablet 06-16 00:00: 00 Yes [id number] 1 tablet DAILY 1 tablet DAILY (route: oral) Med Classific ation: Electroly te Balance-N utritiona l Products sodium bicarbonate 650 mg tablet 06-16 00:00: 00 Yes [id number] 2 tablet 3 TIMES DAILY 2 tablet 3 TIMES DAILY (route: oral) Med Classific ation: Gastroint estinal Therapy Agents atorvastati n 40 mg tablet 06-16 00:00: 00 Yes [id number] 1 tablet BEDTIME 1 tablet BEDTIME (route: oral) Med Classific ation: Cardiovas cular Therapy Agents Eliquis 5 mg tablet 06-16 00:00: 00 Yes [id number] 1 tablet 2 TIMES DAILY 1 tablet 2 TIMES DAILY (route: oral) Med Classific ation: Hematolog ical Agents finasteride 5 mg tablet 06-16 00:00: 00 Yes [id number] 1 tablet DAILY 1 tablet DAILY (route: oral) Med Classific ation: Genitouri nary Therapy metoprolol tartrate 50 mg tablet 06-16 00:00: 00 Yes [id number] 1 tablet 2 TIMES DAILY 1 tablet 2 TIMES DAILY (route: oral) Med Classific ation: Cardiovas cular Therapy Agents mirtazapine 15 mg tablet 06-16 00:00: 00 Yes [id number] 1 tablet BEDTIME 1 tablet BEDTIME (route: oral) Med Classific ation: Central Nervous System Agents sodium chloride 0.9 % irrigation solution 06-16 00:00: 00 Yes [id number] 30-60 mL NEEDED 30-60 mL NEEDED (route: irrigation ) Med Classific ation: Electroly te Balance-N utritiona l Products water oral liquid 06-16 00:00: 00 Yes [id number] 60 mL DAILY 60 mL DAILY (route: oral) Alternate Route: PEG TUBE. Med Classific ation: Chemicals -Pharmace utical Adjuvants Vital Signs Vital Name Observation Time Observation Value Commen ts Temperature 2025-07-26 11:45:00.000 97.6 [degF] Temperature 2025-07-25 09:12:00.000 98.1 [degF] Temperature 2025-07-23 08:38:00.000 97.8 [degF] Temperature 2025-07-16 14:23:00.000 98 [degF] Temperature 2025-07-16 11:15:00.000 98.2 [degF] Temperature 2025-07-15 11:40:00.000 97.8 [degF] Temperature 2025-07-11 11:16:00.000 97.5 [degF] Temperature 2025-07-11 10:07:00.000 98.6 [degF] Temperature 2025-07-09 13:15:00.000 98.4 [degF] Temperature 2025-07-04 15:31:00.000 98 [degF] Temperature 2025-07-01 12:19:00.000 97.4 [degF] Temperature 2025-07-01 11:34:00.000 97.3 [degF] Temperature 2025-06-28 10:42:00.000 97.5 [degF] Temperature 2025-06-25 13:20:00.000 97.9 [degF] Temperature 2025-06-24 10:26:00.000 97.8 [degF] Temperature 2025-06-22 11:19:00.000 97.4 [degF] Temperature 2025-06-16 11:16:00.000 98.1 [degF] BMI (%) 2025-06-16 11:16:00.000 19 kg/m2 Height 2025-06-16 11:16:00.000 70 [in_us] Pulse 2025-07-26 11:45:00.000 78 /min Pulse 2025-07-25 09:12:00.000 73 /min Pulse 2025-07-23 08:38:00.000 80 /min Pulse 2025-07-16 14:23:00.000 80 /min Pulse 2025-07-16 11:15:00.000 74 /min Pulse 2025-07-15 11:40:00.000 66 /min Pulse 2025-07-11 11:16:00.000 78 /min Pulse 2025-07-11 10:07:00.000 79 /min Pulse 2025-07-09 13:15:00.000 86 /min Pulse 2025-07-04 15:31:00.000 75 /min Pulse 2025-07-01 12:19:00.000 74 /min Pulse 2025-07-01 11:34:00.000 72 /min Pulse 2025-06-28 10:42:00.000 60 /min Pulse 2025-06-25 13:20:00.000 78 /min Pulse 2025-06-24 10:26:00.000 84 /min Pulse 2025-06-22 11:19:00.000 70 /min Pulse 2025-06-16 11:16:00.000 86 /min O2 Saturation (%) 2025-07-26 11:45:00.000 98 % O2 Saturation (%) 2025-07-25 09:12:00.000 96 % O2 Saturation (%) 2025-07-23 08:38:00.000 97 % O2 Saturation (%) 2025-07-16 14:23:00.000 96 % O2 Saturation (%) 2025-07-16 11:15:00.000 96 % O2 Saturation (%) 2025-07-15 11:43:00.000 99 % O2 Saturation (%) 2025-07-11 11:16:00.000 95 % O2 Saturation (%) 2025-07-11 10:07:00.000 94 % O2 Saturation (%) 2025-07-09 13:19:00.000 95 % O2 Saturation (%) 2025-07-04 15:31:00.000 96 % O2 Saturation (%) 2025-07-01 12:19:00.000 94 % O2 Saturation (%) 2025-07-01 11:34:00.000 93 % O2 Saturation (%) 2025-06-28 10:42:00.000 95 % O2 Saturation (%) 2025-06-25 13:20:00.000 97 % O2 Saturation (%) 2025-06-24 10:26:00.000 96 % O2 Saturation (%) 2025-06-22 11:19:00.000 97 % O2 Saturation (%) 2025-06-16 11:16:00.000 98 % Respirations 2025-07-26 11:45:00.000 18 /min Respirations 2025-07-25 09:12:00.000 16 /min Respirations 2025-07-23 08:38:00.000 18 /min Respirations 2025-07-16 14:23:00.000 18 /min Respirations 2025-07-16 11:15:00.000 18 /min Respirations 2025-07-15 11:40:00.000 18 /min Respirations 2025-07-11 11:16:00.000 18 /min Respirations 2025-07-11 10:07:00.000 18 /min Respirations 2025-07-09 13:15:00.000 18 /min Respirations 2025-07-04 15:31:00.000 18 /min Respirations 2025-07-01 12:19:00.000 17 /min Respirations 2025-07-01 11:34:00.000 16 /min Respirations 2025-06-28 10:42:00.000 16 /min Respirations 2025-06-25 13:20:00.000 16 /min Respirations 2025-06-24 10:26:00.000 17 /min Respirations 2025-06-22 11:19:00.000 16 /min Respirations 2025-06-16 11:16:00.000 18 /min Weight (lbs) 2025-07-01 12:20:00.000 136 [lb_av] Weight (lbs) 2025-06-16 11:16:00.000 137 [lb_av] Systolic Blood Pressure 2025-07-26 11:45:00.000 138 mm [Hg] Systolic Blood Pressure 2025-07-25 09:12:00.000 140 mm [Hg] Systolic Blood Pressure 2025-07-23 08:38:00.000 128 mm [Hg] Systolic Blood Pressure 2025-07-16 14:23:00.000 138 mm [Hg] Systolic Blood Pressure 2025-07-16 11:15:00.000 128 mm [Hg] Systolic Blood Pressure 2025-07-15 11:40:00.000 105 mm [Hg] Systolic Blood Pressure 2025-07-11 11:16:00.000 130 mm [Hg] Systolic Blood Pressure 2025-07-11 10:07:00.000 116 mm [Hg] Systolic Blood Pressure 2025-07-09 13:15:00.000 95 mm[ Hg] Systolic Blood Pressure 2025-07-04 15:31:00.000 106 mm [Hg] Systolic Blood Pressure 2025-07-01 12:19:00.000 108 mm [Hg] Systolic Blood Pressure 2025-07-01 11:34:00.000 104 mm [Hg] Systolic Blood Pressure 2025-06-28 10:42:00.000 130 mm [Hg] Systolic Blood Pressure 2025-06-25 13:21:00.000 101 mm [Hg] Systolic Blood Pressure 2025-06-24 10:26:00.000 134 mm [Hg] Systolic Blood Pressure 2025-06-22 11:19:00.000 140 mm [Hg] Systolic Blood Pressure 2025-06-16 11:16:00.000 130 mm [Hg] Diastolic Blood Pressure 2025-07-26 11:45:00.000 64 mm [Hg] Diastolic Blood Pressure 2025-07-25 09:12:00.000 65 mm [Hg] Diastolic Blood Pressure 2025-07-23 08:38:00.000 82 mm [Hg] Diastolic Blood Pressure 2025-07-16 14:23:00.000 68 mm [Hg] Diastolic Blood Pressure 2025-07-16 11:15:00.000 84 mm [Hg] Diastolic Blood Pressure 2025-07-15 11:40:00.000 61 mm [Hg] Diastolic Blood Pressure 2025-07-11 11:16:00.000 72 mm [Hg] Diastolic Blood Pressure 2025-07-11 10:07:00.000 76 mm [Hg] Diastolic Blood Pressure 2025-07-09 13:15:00.000 60 mm [Hg] Diastolic Blood Pressure 2025-07-04 15:31:00.000 58 mm [Hg] Diastolic Blood Pressure 2025-07-01 12:19:00.000 68 mm [Hg] Diastolic Blood Pressure 2025-07-01 11:34:00.000 60 mm [Hg] Diastolic Blood Pressure 2025-06-28 10:42:00.000 60 mm [Hg] Diastolic Blood Pressure 2025-06-25 13:21:00.000 52 mm [Hg] Diastolic Blood Pressure 2025-06-24 10:26:00.000 84 mm [Hg] Diastolic Blood Pressure 2025-06-22 11:19:00.000 82 mm [Hg] Diastolic Blood Pressure 2025-06-16 11:16:00.000 80 mm [Hg] Plan of Treatment Planned Activity [...] FOR HOME HEALTH.] Future Scheduled Test HOME HEALT H AGENCY MAY ACCEPT ORDERS FROM THE FOLLOWING PHYSICIANS: FIRE CAPTAIN MARINE/TREATING PROVIDERS [code = HOME HEALTH AGENCY MAY ACCEPT ORDERS FROM THE FOLLOWING PHYSICIANS: FIRE CAPTAIN MARINE/TREATING PROVIDERS] Future Scheduled Test SKILLED NU RSE TO ASSESS ANXIETY AND PROVIDE ASSISTANCE TO PATIENT FOR UNDERSTANDING AND MANAGEMENT OF FEELINGS. [code = SKILLED NURSE TO ASSESS ANXIETY AND PROVIDE ASSISTANCE TO PATIENT FOR UNDERSTANDING AND MANAGEMENT OF FEELINGS.] Future Scheduled Test SKILLED NU RSE FOR INSTRUCTION/ REINFORCEMENT OF NEEDS RELATED TO NUTRITION/HYDRATION. [code = SKILLED NURSE FOR INSTRUCTION/ REINFORCEMENT OF NEEDS RELATED TO NUTRITION/HYDRATION.] Future Scheduled Test SKILLED NU RSE FOR TEACHING REGARDING THE ADMINISTRATION OF ENTERAL NUTRITION: FEEDING TUBE NOT CURRENTLY IN USE. PATIENT/CG TO FLUSH DAILY WITH 60ML TAP WATER. [code = SKILLED NURSE FOR TEACHING REGARDING THE ADMINISTRATION OF ENTERAL NUTRITION: FEEDING TUBE NOT CURRENTLY IN USE. PATIENT/CG TO FLUSH DAILY WITH 60ML TAP WATER.] Future Scheduled Test SKILLED NU RSE TO INSTRUCT PATIENT/CAREGIVER AND PERFORM CARE AND MANAGEMENT OF INDWELLING URINARY CATHETER. INDWELLING CATHETER INSERTION WITH 14 FR CATHETER WITH 10 ML BALLOON VIA STERILE TECHNIQUE, CHANGE Q MONTH AND PRN FOR LEAKING OR MALFUNCTIONING CATHETER. IRRIGATE URINARY CATHETER WITH 30-60CC NORMAL SALINE PRN BLOCKAGE/LEAKAGE, HEAVY SEDIMENT. 1 - 3 PRN HALF-WAY VISITS FOR CATHETER CHANGE(S) AND/OR TROUBLESHOOTING. [code = SKILLED NURSE TO INSTRUCT PATIENT/CAREGIVER AND PERFORM CARE AND MANAGEMENT OF INDWELLING URINARY CATHETER. INDWELLING CATHETER INSERTION WITH 14 FR CATHETER WITH 10 ML BALLOON VIA STERILE TECHNIQUE, CHANGE Q MONTH AND PRN FOR LEAKING OR MALFUNCTIONING CATHETER. IRRIGATE URINARY CATHETER WITH 30-60CC NORMAL SALINE PRN BLOCKAGE/LEAKAGE, HEAVY SEDIMENT. 1 - 3 PRN HALF-WAY VISITS FOR CATHETER CHANGE(S) AND/OR TROUBLESHOOTING.] Future Scheduled Test SKILLED NU RSE FOR O/A, TEACHING AND MANAGEMENT OF NEUROGENIC BLADDER FOR EARLY IDENTIFICATION OF EXACERBATION OF DISEASE PROCESS [code = SKILLED NURSE FOR O/A, TEACHING AND MANAGEMENT OF NEUROGENIC BLADDER FOR EARLY IDENTIFICATION OF EXACERBATION OF DISEASE PROCESS] Future Scheduled Test OCCUPATION AL THERAPIST TO EVALUATE PATIENT FOR EVALUATION [code = OCCUPATIONAL THERAPIST TO EVALUATE PATIENT FOR EVALUATION] Future Scheduled Test SKILLED NU RSE FOR O/A AND SKILLED TEACHING RELATED TO SIGNS AND SYMPTOMS OF INFECTION AND INFECTION CONTROL MEASURES. [code = SKILLED NURSE FOR O/A AND SKILLED TEACHING RELATED TO SIGNS AND SYMPTOMS OF INFECTION AND INFECTION CONTROL MEASURES.] Future Scheduled Test SKILLED NU RSE FOR O/A OF SELF-CARE DEFICITS AND TO PROVIDE TEACHING RELATED TO SAFE PROVISION OF ADLS. [code = SKILLED NURSE FOR O/A OF SELF-CARE DEFICITS AND TO PROVIDE TEACHING RELATED TO SAFE PROVISION OF ADLS.] Future Scheduled Test SKILLED NU RSE TO OBTAIN BLOOD SUGAR PRN FOR SIGNS AND SYMPTOMS OF HYPO/HYPERGLYCEMIA. [code = SKILLED NURSE TO OBTAIN BLOOD SUGAR PRN FOR SIGNS AND SYMPTOMS OF HYPO/HYPERGLYCEMIA.] Future Scheduled Test PHYSICAL T HERAPIST TO EVALUATE PATIENT FOR EVALUATION [code = PHYSICAL THERAPIST TO EVALUATE PATIENT FOR EVALUATION] Future Scheduled Test SKILLED NU RSE TO INSTRUCT PATIENT/CAREGIVER ON SIGNS AND SYMPTOMS, RISK FACTORS, COMPLICATIONS, AND MANAGEMENT OF ATRIAL FIBRILLATION. [code = SKILLED NURSE TO INSTRUCT PATIENT/CAREGIVER ON SIGNS AND SYMPTOMS, RISK FACTORS, COMPLICATIONS, AND MANAGEMENT OF ATRIAL FIBRILLATION.] Future Scheduled Test SKILLED NU RSE TO PROVIDE TEACHING ON SIGNS AND SYMPTOMS AND MANAGEMENT OF HYPERTENSION. [code = SKILLED NURSE TO PROVIDE TEACHING ON SIGNS AND SYMPTOMS AND MANAGEMENT OF HYPERTENSION.] Future Scheduled Test SKILLED NU RSE FOR O/A, TEACHING AND SELF-MANAGEMENT RELATED TO HEART FAILURE. INSTRUCT PATIENT/CAREGIVER ON SIGNS AND SYMPTOMS OF EXACERBATION TO REPORT AND IMPORTANCE OF OBTAINING AND RECORDING DAILY WEIGHT. SN OR TRAINED PATIENT/CAREGIVER TO OBTAIN WEIGHT DAILY AND WEIGHT GAIN OF 2 LBS OVERNIGHT OR 5 LBS IN 1 WEEK TO BE REPORTED TO PHYSICIAN/PROVIDER. [code = SKILLED NURSE FOR O/A, TEACHING AND SELF-MANAGEMENT RELATED TO HEART FAILURE. INSTRUCT PATIENT/CAREGIVER ON SIGNS AND SYMPTOMS OF EXACERBATION TO REPORT AND IMPORTANCE OF OBTAINING AND RECORDING DAILY WEIGHT. SN OR TRAINED PATIENT/CAREGIVER TO OBTAIN WEIGHT DAILY AND WEIGHT GAIN OF 2 LBS OVERNIGHT OR 5 LBS IN 1 WEEK TO BE REPORTED TO PHYSICIAN/PROVIDER.] Future Scheduled Test SKILLED NU RSE FOR O/A AND TEACHING OF DIABETIC MANAGEMENT INCLUDING DIABETIC DIET, LOWER EXTREMITY SKIN INSPECTION, PROPER SKIN/FOOT CARE, AND SIGNS AND SYMPTOMS HYPO/HYPERGLYCEMIA TO REPORT. [code = SKILLED NURSE FOR O/A AND TEACHING OF DIABETIC MANAGEMENT INCLUDING DIABETIC DIET, LOWER EXTREMITY SKIN INSPECTION, PROPER [...] MAINTAIN SITUATIONAL AWARENESS AND WILL NOTIFY CLINICAL PHYSIOTHERAPIST'S ASSISTANT AND PHYSICIAN/PROVIDER WITH ANY CHANGE IN CONDITION. [code = SKILLED NURSE TO PERFORM ENVIRONMENTAL SAFETY RISK ASSESSMENT AND FALL RISK ASSESSMENT AND PROVIDE INSTRUCTION TO IMPLEMENT ENVIRONMENTAL SAFETY AND FALL PREVENTION STRATEGIES THROUGHOUT THE CERTIFICATION PERIOD. SKILLED NURSE WILL MAINTAIN SITUATIONAL AWARENESS AND WILL NOTIFY CLINICAL PHYSIOTHERAPIST'S ASSISTANT AND PHYSICIAN/PROVIDER WITH ANY CHANGE IN CONDITION.] Future Scheduled Test SKILLED NU RSE FOR OBSERVATION AND ASSESSMENT OF PATIENT S PAIN LEVEL AND EFFECTIVENESS OF PAIN MANAGEMENT REGIMEN. SKILLED NURSE TO INSTRUCT PATIENT/CAREGIVER REGARDING PHARMACOLOGIC AND NON-PHARMACOLOGIC PAIN CONTROL MEASURES. SKILLED NURSE TO REPORT TO PHYSICIAN IF PAIN LEVEL IS OUTSIDE OF ESTABLISHED PARAMETERS. [code = SKILLED NURSE FOR OBSERVATION AND ASSESSMENT OF PATIENT S PAIN LEVEL AND EFFECTIVENESS OF PAIN MANAGEMENT REGIMEN. SKILLED NURSE TO INSTRUCT PATIENT/CAREGIVER REGARDING PHARMACOLOGIC AND NON-PHARMACOLOGIC PAIN CONTROL MEASURES. SKILLED NURSE TO REPORT TO PHYSICIAN IF PAIN LEVEL IS OUTSIDE OF ESTABLISHED PARAMETERS.] Future Scheduled Test SKILLED NU RSE TO [...] CHANGES ASSOCIATED WITH DEPRESSIVE DISORDERS FOR EARLY INTERVENTION.] Future Scheduled Test SN TO INST RUCT PATIENT/CAREGIVER ON DIABETES MANAGEMENT UTILIZING THE [facility] SPECIALTY PROGRAM. [code = SN TO INSTRUCT PATIENT/CAREGIVER ON DIABETES MANAGEMENT UTILIZING THE [facility] SPECIALTY PROGRAM.] Future Scheduled Test SN TO INST RUCT PATIENT/CAREGIVER ON HEART FAILURE MANAGEMENT UTILIZING THE MATTERS OF THE HEART SPECIALTY PROGRAM. [code = SN TO INSTRUCT PATIENT/CAREGIVER ON HEART FAILURE MANAGEMENT UTILIZING THE MATTERS OF THE HEART SPECIALTY PROGRAM.] Future Scheduled Test SKILLED NU RSE TO [...] PHYSICIAN/PROVIDER OF ANY CONCERNS.] Future Scheduled Test OCCUPATION AL THERAPIST TO EVALUATE PATIENT SECONDARY TO FUNCTIONAL DEFICITS/SAFETY CONCERNS IDENTIFIED DURING EVALUATION OCCUPATIONAL THERAPIST TO ASSESS BEST PRACTICE INTERVENTIONS TO ASSIST PATIENTS TO IMPROVE OR STABILIZE MEDICAL STATUS AND PREVENT RE-HOSPITALIZATION. MEASURES INCLUDING REVIEW AND IDENTIFICATION OF CONCERNS FOR THE FOLLOWING AREAS: DRUG REGIMEN, DIABETIC FOOT CARE, ENVIRONMENTAL SAFETY ISSUES AND FALLS, PRESSURE ULCERS, PAIN, AND DISEASE MANAGEMENT. OCCUPATIONAL THERAPY TO ESTABLISH /UPGRADE/DOWNGRADE THERAPEUTIC EXERCISE PROGRAM AND INSTRUCT PATIENT/CAREGIVER ON EXERCISE PRECAUTIONS WITH WRITTEN HOME PROGRAM. MAY INCLUDE AAROM, AROM, RROM APPROPRIATE TO IMPROVE FUNCTIONAL STRENGTH AND/OR RANGE OF MOTION. OCCUPATIONAL THERAPY TO INSTRUCT PATIENT/CAREGIVER ON BALANCE AND BALANCE STRATEGIES TO IMPROVE SAFETY DURING ACTIVITIES OF DAILY LIVING AND REDUCE RISK OF INJURIES AND FALLS. OCCUPATIONAL THERAPY TO ASSESS AND RECOMMEND HOME SAFETY ADAPTATIONS AND EDUCATE PATIENT/CAREGIVER ON FALL PREVENTION STRATEGIES TO ENHANCE PARTICIPATION IN ADL S. [code = OCCUPATIONAL THERAPIST TO EVALUATE PATIENT SECONDARY TO FUNCTIONAL DEFICITS/SAFETY CONCERNS IDENTIFIED DURING EVALUATION OCCUPATIONAL THERAPIST TO ASSESS BEST PRACTICE INTERVENTIONS TO ASSIST PATIENTS TO IMPROVE OR STABILIZE MEDICAL STATUS AND PREVENT RE-HOSPITALIZATION. MEASURES INCLUDING REVIEW AND IDENTIFICATION OF CONCERNS FOR THE FOLLOWING AREAS: DRUG REGIMEN, DIABETIC FOOT CARE, ENVIRONMENTAL SAFETY ISSUES AND FALLS, PRESSURE ULCERS, PAIN, AND DISEASE MANAGEMENT. OCCUPATIONAL THERAPY TO ESTABLISH /UPGRADE/DOWNGRADE THERAPEUTIC EXERCISE PROGRAM AND INSTRUCT PATIENT/CAREGIVER ON EXERCISE PRECAUTIONS WITH WRITTEN HOME PROGRAM. MAY INCLUDE AAROM, AROM, RROM APPROPRIATE TO IMPROVE FUNCTIONAL STRENGTH AND/OR RANGE OF MOTION. OCCUPATIONAL THERAPY TO INSTRUCT PATIENT/CAREGIVER ON BALANCE AND BALANCE STRATEGIES TO IMPROVE SAFETY DURING ACTIVITIES OF DAILY LIVING AND REDUCE RISK OF INJURIES AND FALLS. OCCUPATIONAL THERAPY TO ASSESS AND RECOMMEND HOME SAFETY ADAPTATIONS AND EDUCATE PATIENT/CAREGIVER ON FALL PREVENTION STRATEGIES TO ENHANCE PARTICIPATION IN ADL S.] Goal Patient Goal - T O BE ABLE TO WALK AROUND THE HOUSE INDEPENDENTLY Goal Provider Goal - A PLAN OF CARE WILL BE ESTABLISHED THAT MEETS PATIENT'S HALF-WAY NEEDS AND INCLUDES PATIENT GOAL FOR HOME HEALTH. Goal Provider Goal - ADDITIONAL ORDERS WILL BE RECEIVED FROM ALTERNATE PHYSICIAN IN A TIMELY MANNER THROUGHOUT THE CERTIFICATION PERIOD. Goal Provider Goal - SYMPTOMS OF ANXIETY ARE IDENTIFIED AND INTERVENTIONS INITIATED TO ENABLE PATIENT TO UNDERSTAND AND MANAGE FEELINGS THROUGHOUT EPISODE. Goal Provider Goal - PATIENT/CAREGIVER WILL DEMONSTRATE ABILITY TO SELF MANAGE NEEDS RELATED TO NUTRITION/HYDRATION THROUGHOUT THE EPISODE. Goal Provider Goal - PATIENT/CAREGIVER WILL DEMONSTRATE [...] Goal - PATIENT/CAREGIVER WILL VERBALIZE UNDERSTANDING OF GENITOURINARY DISEASE PROCESS, AND EXACERBATIONS OF GENITOURINARY DISEASE WILL BE PROMPTLY IDENTIFIED FOR EARLY INTERVENTION THROUGHOUT THE CERTIFICATION PERIOD. Goal Provider Goal - OCCUPATIONAL THERAPY EVALUATION TO BE COMPLETED WITH RECOMMENDATIONS AND WRITTEN PLAN OF TREATMENT ESTABLISHED FOR THE PHYSICIAN S SIGNATURE. Goal Provider Goal - PATIENT/CAREGIVER WILL VERBALIZE/DEMONSTRATE UNDERSTANDING OF S/S OF INFECTION AND INFECTION CONTROL MEASURES. SIGNS AND SYMPTOMS OF INFECTION WILL BE IDENTIFIED AND PHYSICIAN NOTIFIED FOR PROMPT INTERVENTION THROUGHOUT THE CERTIFICATION PERIOD. Goal Provider Goal - PATIENT/CAREGIVER WILL VERBALIZE/DEMONSTRATE UNDERSTANDING OF SAFE PROVISION OF ADLS BY THE END OF THE CERTIFICATION PERIOD. Goal Provider Goal - BLOOD SUGAR READING WILL BE OBTAINED ORDERED THROUGHOUT CERTIFICATION PERIOD. Goal Provider Goal - A PHYSICAL THERAPY EVALUATION TO BE COMPLETED WITH RECOMMENDATIONS AND/OR WRITTEN PLAN OF TREATMENT ESTABLISHED FOR PHYSICIAN S SIGNATURE. Goal Provider Goal - PATIENT/CAREGIVER WILL VERBALIZE UNDERSTANDING OF SIGNS AND SYMPTOMS, COMPLICATIONS, AND MANAGEMENT OF ATRIAL FIBRILLATION THROUGHOUT THE CERTIFICATION PERIOD. Goal Provider Goal - PATIENT/CAREGIVER WILL VERBALIZE SIGNS AND SYMPTOMS OF HYPERTENSION AND WILL BE ABLE TO DEMONSTRATE ABILITY TO MANAGE EXACERBATION BY END OF THE EPISODE. Goal Provider [...] PAIN INTERFERING WITH ACTIVITY EVIDENCED BY PAIN AT A LEVEL THAT IS ACCEPTABLE TO THE PATIENT AND PAIN LEVEL WITHIN ESTABLISHED PARAMETERS BY END OF CERTIFICATION PERIOD. Goal Provider Goal - PATIENT/CAREGIVER WILL VERBALIZE UNDERSTANDING OF PRESSURE ULCER PREVENTION BY END OF THE EPISODE. Goal Provider Goal - PATIENT/CAREGIVER WILL VERBALIZE/DEMONSTRATE UNDERSTANDING OF THE MANAGEMENT OF DEPRESSION THROUGHOUT THE CERTIFICATION PERIOD AND SYMPTOMS ARE IDENTIFIED AND MANAGED TO MAINTAIN PATIENT SAFETY IN THE HOME. Goal Provider Goal - PATIENT/CAREGIVER WILL DEMONSTRATE MANAGEMENT OF DIABETES A RESULT OF PARTICIPATION IN [facility] SPECIAL[facility] PROGRAM. Goal Provider Goal - PATIENT/CAREGIVER WILL DEMONSTRATE MANAGEMENT OF HEART FAILURE A RESULT OF PARTICIPATION IN MATTERS OF THE HEART SPECIALTY PROGRAM. Goal Provider Goal - PATIENT/CAREGIVER WILL VERBALIZE UNDERSTANDING OF EDUCATION PROVIDED ON MEDICATIONS BY THE END OF THE CERTIFICATION PERIOD. Goal Provider Goal - OCCUPATIONAL THERAPIST TO EVALUATE PATIENT SECONDARY TO FUNCTIONAL DEFICITS/SAFETY CONCERNS IDENTIFIED DURING EVALUATION. PATIENT/CAREGIVER VERBALIZES UNDERSTANDING OF THE INITIAL BEST PRACTICE RECOMMENDATIONS. PHYSICIAN TO BE NOTIFIED APPROPRIATE FOR ANY CHANGES OR COMPLICATIONS THROUGHOUT THE CERTIFICATION PERIOD. PATIENT/CAREGIVER WILL PERFORM THERAPEUTIC EXERCISE/S AND DEMONSTRATE PARTICIPATION IN A HOME PROGRAM. PATIENT/CAREGIVER WILL DEMONSTRATE IMPROVED BALANCE AND REDUCE THE RISK OF FALLS AND INJURY. CAREGIVER/PATIENT WILL DEMONSTRATE/VERBALIZE UNDERSTANDING OF RECOMMENDATIONS TO INCREASE SAFETY IN THE HOME AND FALL PREVENTION Progress Notes Progress Notes <paragraph>[Visit Date: 2024 by MAMI NEELY LPN]:</paragraph><paragraph>NURSERY FOR ROUTINE UPON NURSE ARRIVAL PATIENT IS IN BACK BEDROOM IN BED. PATIENT REMAINS HOMEBOUND AT THIS TIME.</paragraph><paragraph></paragraph><paragraph>PATIENT ALERT AND ORIENTED WITH PERIODS OF FORGETFULNESS VITAL SIGNS TODAY ARE ALL WITHIN NORMAL PARAMETERS PATIENT STATES HE IS IN A LOT OF PAIN UTERUS CATHETER UPON THIS NURSE'S ASSESSMENT CATHETER BAG IS SO FULL THAT IT IS ALMOST BUSTING THIS NURSE EMPTIED LEG BAG 800 MG OF URINE DRAINED. PATIENT STATES HE FELT INSTANT RELIEF WHEN URINE BAG WAS DRAINED. PATIENT IS UNABLE TO GET UP AND EMPTY URINE BAG HIMSELF. PATIENT STATES HIS DAUGHTER DOES CALM OVER DAILY TO EMPTY IT BUT HAS NOT BEEN THERE YET TODAY. NURSE ADVISED THE PATIENT'S DAUGHTER LIKELY NEEDS TO COME TWICE A DAY TO EMPTY COBURN BAG. THIS NURSE SPOKE WITH PATIENT'S DAUGHTER PATIENT'S DAUGHTER RESCHEDULED COBURN CATHETER CHANGE WITH UROLOGY FOR NEXT WEEK DUE TO A CONFLICTING PERSONAL APPOINTMENT. PATIENT WAS EDUCATED ON PROPER CATH CARE TO PREVENT UTI PREVENTION ALTHOUGH PATIENT IS NOT ABLE TO DO MUCH FOR HIMSELF DUE TO HIS DEBILITATING DEPRESSION. PATIENT DOES HAVE A G TUBE THAT HE MANAGES HIMSELF PATIENT STATES HE IS NOT GIVING HIMSELF ANY FEEDINGS TODAY NURSE EDUCATED ON PROPER NUTRITION. PATIENT'S CALENDAR WAS REVIEWED REGARDING VISIT PATIENT ADVISED TO CALL [facility] WITH ANY QUESTIONS CONCERNS OR CHANGES IN STATUS .</paragraph> Encounters Start Date/Time End Date/Time Encounter Type Admission Type Attending [facility] Care Facility Care Department Encounter ID Discharge Date Discharge Status Discharge Condition Discharge Reason Percent Goals Met 2025-06-16 00:00:00 2025-08-14 00:00:00 Outpatient [facility] [id number] 41.5 1
== END 2025-08-03 17:35 | DRG 177 ==
LOC: ANHED 19:38 → ANHIMU 21:32 → ANH3MEDSUR 07-29 14:48
PROVIDERS: Emergency Medicine; Nurse Practitioner Gerontology; Admitting Provider Internal Medicine; Emergency Provider Physician Assistant; PCP Emergency Medicine; Visit Provider General Practice
DX: J69.0 Pneumonitis due to inhalation of food and vomit (principal); G93.41 Metabolic encephalopathy; N39.0 Urinary tract infection, site not specified; I13.0 Hypertensive heart and chronic kidney disease with heart failure and stage 1 through stage 4 chronic kidney disease, or unspecified chronic kidney disease; I50.42 Chronic combined systolic (congestive) and diastolic (congestive) heart failure; B96.4 Proteus (mirabilis) (morganii) as the cause of diseases classified elsewhere; D63.1 Anemia in chronic kidney disease; E11.22 Type 2 diabetes mellitus with diabetic chronic kidney disease; E78.5 Hyperlipidemia, unspecified; F41.9 Anxiety disorder, unspecified; F17.210 Nicotine dependence, cigarettes, uncomplicated; I48.0 Paroxysmal atrial fibrillation; N18.31 Chronic kidney disease, stage 3a; N31.9 Neuromuscular dysfunction of bladder, unspecified; N40.0 Benign prostatic hyperplasia without lower urinary tract symptoms; R13.10 Dysphagia, unspecified; Z66 Do not resuscitate; Z20.822 Contact with and (suspected) exposure to COVID-19; Z79.01 Long term (current) use of anticoagulants; Z90.49 Acquired absence of other specified parts of digestive tract; Z86.73 Personal history of transient ischemic attack (TIA), and cerebral infarction without residual deficits; Z93.1 Gastrostomy status
CPT/HCPCS: 36415; 36430; 70450; 71045; 71250; 74230; 80048; 80053; 81001; 82274; 82607; 82728; 82746; 82948; 83540; 83550; 83605; 83735; 84145; 85014; 85018; 85025; 85027; 85046; 85610; 85730; 86140; 86850; 86900; 86901; 86923; 87040; 87086; 87186; 87635; 87637; 92526; 92610; 92611; 93005; 96361; 96365; 97166; 97530; 97535; 99285; A9270; G0378; J2185; J3475; J7030; J7050; P9016

== ENCOUNTER 2025-08-16 22:18 | Emergency (ER) | payer MEDICARE, OTHER, SELFPAY ==
[2025-08-16 22:55] VITALS: BP 125/58; PULSE 64; RESP 20; TEMP 36.9; O2SAT 98
[2025-08-17 00:49] LABS: Hematocrit 24.1 % (42.0-52.0); Hemoglobin 7.7 g/dL (14.0-18.0); Immature Granulocyte Percent A 1.3 % (0-0.5); Lymphocytes Absolute Auto 2.21 K/mm3 (0.9-3.2); Mean Corpuscular HGB Conc 32.0 g/dl (32-36); Mean Corpuscular Hemoglobin 30.6 pg (26-34); Mean Corpuscular Volume 95.6 fl (80-100); Nucleated Red Blood Cells Absolute Auto 0.000 K/mm3 (0.0-0.012); Nucleated Red Blood Cells Perc 0.0 % (0.0-0.2); Platelet Count Result 362 k/mm3 (150-375); Red Blood Count 2.52 M/mm3 (4.6-6.20); White Blood Count 11.4 K/mm3 (4.5-10.0)
[2025-08-17 00:56] LABS: Add Urine Microscopic? YES; Appearance Urine Clear (Clear); Glucose Urine UA Negative (Negative); Leukocyte Esterase Ur 1+ LEU/UL (Negative); Need Manual Microscopic Reviewed; Nitrate Urine Negative (Negative); Non Pathogenic Casts 0-2; Specific Grav Ur 1.011 (1.001-1.035)
[2025-08-17 00:59] LABS: Alanine Aminotransferase 244 U/L (6-50); Albumin Level 3.3 g/dL (3.5-5.1); Alkaline Phosphatase 183 U/L (38-126); Anion Gap 8 mmol/L (4-12); Aspartate Amino Transferase 126 U/L (17-59); Bilirubin,Total 0.5 mg/dL (0.2-1.3); Blood Urea Nitrogen 85 mg/dL (9-20); Calcium 8.4 mg/dL (8.4-10.2); Carbon Dioxide 27 mmol/L (22-30); Chloride 98 mmol/L (98-107); Estimated CRCL calculation 26 ml/min; Estimated Glomerular Filt Rate 26; Glucose 109 mg/dL (65-110); Lipase 193 U/L (23-300); Magnesium 2.1 mg/dL (1.6-2.3); Potassium 4.4 mmol/L (3.4-5.0); Sodium 133 mmol/L (137-145); Total Protein 7.2 g/dL (6.3-8.2)
--- NOTE | 2025-08-17 01:28 | ED_ITS ---
HPI - General Adult General Chief complaint: Recheck/Abnormal Lab/Rx Stated complaint: high bun and creat Time Seen by Provider: 08/17/25 01:17 History of Present Illness HPI narrative: Patient is a 70-year-old male who presents emergency department this evening from local nursing facility [facility] due to concern for elevated BUN/creatinine. Per report, patient had blood work revealing a BUN of 81 and creatinine of 6.7. Patient does have a history of chronic kidney disease. Otherwise, patient is denying any symptoms including any chest pain, shortness of breath, nausea vomiting or abdominal pain. No additional symptoms or concerns at this time. Related Data Home Medications ?Medication ?Instructions ?Recorded ?Confirmed ?Last Taken ?Type apixaban 5 mg tablet 5 mg feeding tube BID 07/27/25 05/15/25 08:25 History atorvastatin 40 mg tablet 40 mg feeding tube DAILY 07/27/25 05/15/25 08:25 History finasteride 5 mg tablet (Proscar) 5 mg feeding tube QA M 05/15/25 07/27/25 05/15/25 08:25 History metoprolol tartrate 50 mg tablet 50 mg feeding tube Q1 2HR 05/15/25 07/27/25 05/15/25 08:25 History Allergies Allergy/AdvReac Type Severity Reaction Status Date / Time No Known Allergies Allergy Mild Verified 08/16/25 23:01 Review of Systems 2 Review of Systems: All systems are reviewed and are negative unless stated otherwise in the HPI. [facility] Past Medical History Medical History Chronic anemia PAF (paroxysmal atrial fibrillation) Combined systolic and diastolic congestive heart failure CKD (chronic kidney disease) Anxiety Arthritis TIA (transient ischemic attack) CVA (cerebral vascular accident) Per MRI on 03/20/2024, old infarcts in the bilateral basal ganglia Indwelling Bosch catheter present Non-insulin dependent diabetes mellitus Normocytic anemia Hyperlipidemia Neurogenic bladder Obstructive uropathy BPH loc w urin obs/LUTS Hypertension Surgical History Surgical History History of appendectomy Family History Family History Father Cerebrovascular accident Mother Alcohol abuse Alcohol abuse by patient's mother Heart attack Hypertension Social History Social History Social History: Has a daughter Smoking packs per day: 0.5 Smoking cigarettes per day: 10.0 Years smoked: 50 Smoking pack-years: 25.00 Smoking status: Current every day smoker Tobacco type: cigarettes Second hand tobacco smoke exposure: Yes Additional smoking assessment comments: pt states he started smoking when he got at the age of 39 Alcohol intake: former Drinks per week: 1 Alcohol use details: couple times a week (happy hour) Substance use: former Substance use type: does not use Other substance usage details: smokes marijuana when friends bring it to him Last use: 04/04/25 Do You Feel Safe in your Home?: Yes Lack of Transportation: No Lack of Food: Never True Current Housing: I Have Housing Concerned About Future Housing: No Difficulty Paying Gas/Electric Bills: No Difficulty Paying for Meds: No Currently Unemployed: No Education: High School Diploma/GED Difficulty w/ Childcare or Family Care: No Living arrangements: assisted living Spiritual care concerns: No Exam 2 Narrative: General: Alert, awake, afebrile, in no acute distress. HEENT: PERRL, no rhinorrhea, no post nasal drip, oropharynx clear. Neck: Trachea midline, no JVD, no lymphadenopathy. Cardiovascular: Regular rate and rhythm, no murmurs, rubs or gallops, no peripheral edema. Respiratory: Clear to auscultation bilaterally, no tachypnea, no wheezing, no rhonchi, no rubs, no respiratory distress. Abdomen: Soft, nontender, nondistended, no rebound, no guarding, no peritoneal signs. Musculoskeletal: No joint swelling or deformity, normal muscle tone. Skin: No rashes or petechia, no signs of infection. Psychiatric: Alert and oriented, normal behavior and judgment for situation. Neurological: Alert and oriented to person, place, and time. Follows all commands. No focal deficits, speech is clear and fluent. Course Vital Signs Vital signs: Vital Signs Temperature 98.4 F 08/16/25 22:55 Pulse Rate 64 08/16/25 22:55 Respiratory Rate 20 08/16/25 22:55 Blood Pressure 125/58 L 08/16/25 22:55 Pulse Oximetry 98 08/16/25 22:55 Oxygen Delivery Room Air 08/16/25 22:55 Temperature 98.4 F 08/16/25 22:55 Pulse Rate 64 08/16/25 22:55 Respiratory Rate 20 08/16/25 22:55 Blood Pressure 125/58 L 08/16/25 22:55 Pulse Oximetry 98 08/16/25 22:55 Oxygen Delivery Room Air 08/16/25 22:55 Medical Decision Making MDM Narrative Medical decision making narrative: The patient was evaluated by myself in the emergency department. History is obtained from patient who is an independent historian and physical exam was performed. External medical records were reviewed at this time. IV was established and pertinent tests were ordered. Laboratory results obtained revealing a BUN of 85 and a creatinine of 2.46 which are both better than last documented values of 95 and 3.61 from August 02. Patient is hemoglobin noted to be 7.7 which is also around his baseline, last documented 3 hemoglobins all noted to be 7.3 and 7.8. Patient does have known history of chronic kidney disease and chronic anemia. Liver enzymes were also noted to be elevated today with an AST 126 and an ALT of 244 otherwise unremarkable. Differential diagnosis considerations include acute on chronic kidney disease, dehydration, electrolyte derangements, acute viral syndrome. Comorbidities impacting this visit include history of CKD and chronic anemia. I have evaluated and discussed social determinants of health with the patient that could potentially impact subsequent diagnosis and treatment plans. On repeat assessment of the patient, reevaluation revealed that the patient is doing well and is in no acute distress. Patient symptoms have remained stable since he arrived to our emergency department. Repeat vital signs were all reviewed and noted to be stable. Differential diagnosis and treatment plan were discussed with the patient at bedside. Patient agrees with discussion and after shared medical decision making agrees with discharge. All questions were answered to the patient's satisfaction. Patient will follow up with his PCP in 3-5 days. Patient was provided with strict return precautions and instructed to return to the emergency department if any new or worsening symptoms develop. The patient was discharged in stable condition. Vital Signs Vital Signs: Vital Signs Temperature 98.4 F 08/16/25 22:55 Pulse Rate 64 08/16/25 22:55 Respiratory Rate 20 08/16/25 22:55 Blood Pressure 125/58 L 08/16/25 22:55 Pulse Oximetry 98 08/16/25 22:55 Oxygen Delivery Room Air 08/16/25 22:55 Temperature 98.4 F 08/16/25 22:55 Pulse Rate 64 08/16/25 22:55 Respiratory Rate 20 08/16/25 22:55 Blood Pressure 125/58 L 08/16/25 22:55 Pulse Oximetry 98 08/16/25 22:55 Oxygen Delivery Room Air 08/16/25 22:55 Lab Data 08/17/25 00:42 08/17/25 00:42 Labs: Lab Results 08/17/25 Range/Units 00:42 WBC 11.4 H (4.5-10.0) K/mm3 RBC 2.52 L (4.6-6.20) M/mm3 Hgb 7.7 L (14.0-18.0) g/dL Hct 24.1 L (42.0-52.0) % MCV 95.6 (80-100) fl MCH 30.6 (26-34) pg MCHC 32.0 (32-36) g/dl RDW 15.1 H (11.5-14.5) % Plt Count 362 D (150-375) k/mm3 MPV 9.1 (7.4-10.4) fl Immature Gran % (Auto) 1.3 H (0-0.5) % Neut % (Auto) 63.5 (45.5-73.1) % Lymph % (Auto) 19.4 (18.3-44.2) % [place] % (Auto) 11.8 H (2.6-8.5) % Eos % (Auto) 3.7 (0-4.4) % Baso % (Auto) 0.3 (0.2-1.2) % Lymph # (Auto) 2.21 (0.9-3.2) K/mm3 [place] # (Auto) 1.4 H (0.1-0.6) K/mm3 Eos # (Auto) 0.4 H (0-0.3) K/mm3 Baso # (Auto) 0.0 (0.0-0.1) K/mm3 Abs Immat Gran (auto) 0.15 H (0.00-0.031) K/mm3 Absolute Neuts (auto) 7.2 H (1.3-6.7) K/mm3 Absolute Nucleated RBC 0.000 (0.0-0.012) K/mm3 Nucleated RBC % 0.0 (0.0-0.2) % Sodium 133 L (137-145) mmol/L Potassium 4.4 (3.4-5.0) mmol/L Chloride 98 (98-107) mmol/L Carbon Dioxide 27 (22-30) mmol/L Anion Gap 8 (4-12) mmol/L BUN 85 H D (9-20) mg/dL Creatinine 2.46 H (0.7-1.3) mg/dL Estim Creat Clear Calc 26 ml/min Estimated GFR 26 L (59 - ) Glucose 109 (65-110) mg/dL Calcium 8.4 (8.4-10.2) mg/dL Magnesium 2.1 (1.6-2.3) mg/dL Total Bilirubin 0.5 (0.2-1.3) mg/dL AST 126 H (17-59) U/L ALT 244 H (6-50) U/L Alkaline Phosphatase 183 H (38-126) U/L Total Protein 7.2 (6.3-8.2) g/dL Albumin 3.3 L (3.5-5.1) g/dL Lipase 193 (23-300) U/L Urine Color Yellow (Yellow) Urine Appearance Clear (Clear) Urine pH 7.5 (5.0-9.0) Ur Specific [place] 1.011 (1.001-1.035) Urine Protein 2+ H (Negative) mg/dL Urine Glucose (UA) Negative (Negative) mg/dL Urine Ketones Negative (Negative) mg/dL Ur Blood (Man) 2+ H (Negative) Urine Nitrate Negative (Negative) Urine Bilirubin Negative (Negative) Urine Urobilinogen 0.2 (<2.0) mg/dL Add Ur Microanalysis Reviewed Leukocyte Esterase Rfl 1+ H (Negative) JOSE/UL Urine RBC 21-50 H (0-2) /hpf Urine WBC 0-5 (0-3) /hpf Ur Squamous Epith Cells None seen (Few) /hpf Urine Bacteria None seen /hpf Urine Casts 0-2 Discharge Plan Discharge Clinical Impression: LEANDRO (acute kidney injury), Chronic anemia Patient Disposition: SNF Condition: Improved Instructions: Chronic Kidney Disease (ED), Anemia (ED) Additional Instructions: Please follow-up with your family doctor/rustic terrazzo setter within the next 3-5 days but her daily if any new or worsening symptoms develop. Patient Language: Chinese Prescriptions: No Action atorvastatin 40 mg tablet 40 mg feeding tube DAILY metoprolol tartrate 50 mg tablet 50 mg feeding tube Q12HR finasteride [Proscar] 5 mg tablet 5 mg feeding tube QAM apixaban 5 mg Tablet 5 mg feeding tube BID mirtazapine [Remeron] 15 mg tablet 15 mg feeding tube HS Qty: 30 0RF Follow-up/Referrals: Ronnell Zhang MD [Primary Care Provider, Family Practice] - 3 Days Time of Disposition: 01:29
[2025-08-17 02:00] VITALS: BP 170/81; PULSE 71; RESP 17; O2SAT 97
--- NOTE | 2025-08-17 03:08 | PC.NURSE ---
This RN called Attila from [facility] and gave report on pt.
[2025-08-17 03:14] VITALS: BP 162/79; PULSE 74; RESP 20; O2SAT 98
[2025-08-17 03:47] VITALS: BP 162/79; PULSE 74; RESP 20; O2SAT 98
== END 2025-08-17 03:50 ==
PROVIDERS: Emergency Provider Emergency Medicine; PCP Emergency Medicine
DX: N17.9 Acute kidney failure, unspecified (principal); I12.9 Hypertensive chronic kidney disease with stage 1 through stage 4 chronic kidney disease, or unspecified chronic kidney disease; N18.9 Chronic kidney disease, unspecified; D63.1 Anemia in chronic kidney disease; F17.210 Nicotine dependence, cigarettes, uncomplicated; F12.90 Cannabis use, unspecified, uncomplicated; Z79.899 Other long term (current) drug therapy
CPT/HCPCS: 36415; 80053; 81001; 83690; 83735; 85025; 87086; 99283